=== PATIENT | female | born 1985 | race Caucasian/White ===

== ENCOUNTER 2018-01-05 16:47 | Observation (INO) | payer MEDICAID ==
[2018-01-05] MEDS ORDERED: Sodium Chloride 0.9% 1,000 ML IV SCH (17:45)
[2018-01-05] MEDS ORDERED: Metoclopramide 10 MG/2 ML SDV IVPUSH ONE (17:53)
[2018-01-05] MEDS ORDERED: HYDROmorphone 0.5 MG/0.5 ML Syringe IVPUSH ONE ×2 (17:53→21:12)
--- NOTE | 2018-01-05 17:53 | EDM.PDOC ---
ED HPI GENERAL MEDICAL PROBLEM - General Chief Complaint: Diabetic Complaint Stated Complaint: DIABETIC PROBLEMS Time Seen by Provider: 01/05/18 17:25 Source of Information: Reports: Patient History Limitations: Reports: No Limitations - History of Present Illness INITIAL COMMENTS - FREE TEXT/NARRATIVE: 32-year-old female who has been insulin-dependent diabetic 10 years presents to the ED with acute onset of high fever chills riders productive cough generalized myalgia and loss of appetite. Symptoms started yesterday about noon. She has a daughter home with similar symptoms. She did have a flu shot this year as did other members of her family. Clinically she has influenza. Blood sugars have been over 500 since yesterday and she's been unable to regain control by use of intermittent regular insulin shots. Typically she is on 20 units of Lantus daily and takes 8-9 units of regular insulin with each meal. He did report that she took 20 units of Lantus at 1500 hrs today before coming into the ED. She has had nausea and vomiting. Last emesis was last night. Onset: Sudden Onset Date: 01/04/18 Duration: Hour(s):, Getting Worse Location: Reports: Chest (Paroxysmal minimally productive cough), Generalized ( Analyzed myalgia with headache), Other Quality: Reports: Ache, Other (Generalized myalgia with headache nausea) Severity: Severe Improves with: Reports: None (Relates headache 8 or 9 out of 10) Worsens with: Reports: None, Other (Coughing), Movement Context: Denies: Activity, Exercise, Lifting, Sick Contact, Trauma, Other Associated Symptoms: Reports: Cough, Diaphoresis, Fever/Chills, Headaches, Loss of Appetite, Malaise, Nausea/Vomiting, Weakness. 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 History: Reports: Endometriosis, Other OB/BYN History: x5 Musculoskeletal History: Reports: Arthritis, Back Pain, Chronic Neurological History: Reports: Migraines, Seizure Psychiatric History: Reports: Addiction Endocrine/Metabolic History: Reports: Diabetes, Type I Hematologic History: Reports: Blood Transfusion(s) Dermatologic History: Reports: Eczema, Psoriasis - Infectious Disease History Infectious Disease History: Reports: MRSA - Past Surgical History GI Surgical History: Reports: Cholecystectomy, Other (See Below) Other GI Surgeries/Procedures: bowel resection Social & Family History - Family History Family Medical History: Noncontributory - Tobacco Use Smoking Status *Q: Current Every Day Smoker Years of Tobacco use: 20 Packs/Tins Daily: 1 - Caffeine Use Caffeine Use: Reports: Coffee, Energy Drinks, Soda, Tea - Recreational Drug Use Recreational Drug Use: Yes Recreational Drug Type: Reports: Marijuana/Hashish - Living Situation & Occupation Living situation: Reports: Single Occupation: Disabled ED ROS GENERAL - Review of Systems Review Of Systems: See Below Constitutional: Reports: Fever, Chills, Malaise, Weakness, Fatigue, Decreased Appetite, Weight Loss HEENT: Reports: Throat Pain. Denies: Ear Pain, Glasses, Vertigo Respiratory: Reports: Wheezing, Cough. Denies: Shortness of Breath, Pleuritic Chest Pain, Sputum, Hemoptysis (Mostly nonproductive) Cardiovascular: Reports: Chest Pain (From coughing so much.), Dyspnea on Exertion, Lightheadedness. Denies: Blood Pressure Problem, Claudication, Edema , Orthopnea, Palpitations Endocrine: Reports: Fatigue GI/Abdominal: Reports: Abdominal Pain, Diarrhea, Decreased Appetite (Mildly loose watery stool.), Nausea, Vomiting (Yesterday but not today.). Denies: Difficulty Swallowing, Distension : Reports: No Symptoms Musculoskeletal: Reports: Muscle Pain (Generalized myalgia.) Skin: Reports: Pallor, Diaphoresis Neurological: Reports: Dizziness, Headache, Difficulty Walking, Weakness. Denies: Confusion, Numbness, Paresthesia, Pre-Existing Deficit, Seizure, Syncope , Tingling, Tremors, Trouble Speaking (Due to weakness), Change in Speech Psychiatric: Reports: No Symptoms Hematologic/Lymphatic: Reports: No Symptoms Immunologic: Reports: No Symptoms ED EXAM GENERAL NO PERIP PULSE - Physical Exam Exam: See Below Exam Limited By: No Limitations General Appearance: Alert, WD/WN, Anxious, Mild Distress, Other (Does feel warm to palpation.) Eye Exam: Bilateral Eye: Normal Inspection (No jaundice.), PERRL (But has pain on lateral gaze bilaterally. This suggests inflammation of lateral rectus muscle ) Ears: Normal TMs Throat/Mouth: Other (Dry lips and mouth. Tongue is coated.) Head: Atraumatic, Normocephalic Neck: Normal Inspection, Supple, Non-Tender, Full Range of Motion. No: Carotid Bruit, Lymphadenopathy (L), Lymphadenopathy (R) Respiratory/Chest: Wheezing (Expiratory wheezes throughout all lung [place].), Other. No: Rales, Rhonchi Cardiovascular: Normal Peripheral Pulses (Dry hacking cough.), Regular Rate, Rhythm, No Edema, No Murmur GI/Abdominal: Normal Bowel Sounds, Soft, Non-Tender, No Organomegaly, No Mass, Pelvis Stable, Rebound Back Exam: Normal Inspection, Full Range of Motion. No: CVA Tenderness (L), CVA Tenderness (R) Extremities: Normal Inspection, Normal Range of Motion, Non-Tender, No Pedal Edema Neurological: Alert, Oriented, CN II-XII Intact, Normal Cognition Psychiatric: Normal Affect, Normal Mood Skin Exam: Warm, Dry, Intact, Normal Color, No Rash EKG INTERPRETATION EKG Date: 01/05/18 Time: 18:35 Rhythm: Other (Sinus tachycardia at 10 5/m) Rate (Beats/Min): 105 [place]: Normal P-Wave: Enlarged (Right atrial enlargement) QT: Prolonged (Mildly prolonged) EKG Interpretation Comments: Abnormal ECG Course - Vital Signs Last Recorded V/S: Last Vital Signs Temp 37.0 C 01/05/18 17:16 Pulse 119 H 01/05/18 17:16 Resp 18 01/05/18 17:16 BP 115/79 01/05/18 17:16 Pulse Ox 100 01/05/18 17:16 - Orders/Labs/Meds Orders: Active Orders 24 hr Category Date Time Status Blood Glucose Check, Bedside [] ONETIME Care 01/05/18 17:43 Active Blood Glucose Check, Bedside [RC] ONETIME Care 01/05/18 19:00 Active EKG Documentation Completion [RC] STAT Care 01/05/18 17:41 Active Chest 1V Frontal [CR] Stat Exams 01/05/18 17:41 Taken URINALYSIS W/MICROSCOPIC [UA W/MICROSCOPIC] [URIN] Stat Lab 01/05/18 17:43 Uncollected Dextrose 5%-0.9% NaCl [Dextrose 5%-Normal Saline] 1,000 Med 01/05/18 20:15 Active ml IV ASDIRECTED Magnesium Sulfate/Water [Magnesium Sulfate 2 GM in Med 01/05/18 19:08 Active Water 50 ML] 2 gm Premix Bag 1 bag IV ONETIME Potassium Chloride [KCl 10 MEQ in Water 100 ML] 10 meq Med 01/05/18 20:30 Active Premix Bag 1 bag IV ONETIME Sodium Chloride 0.9% [Normal Saline] 1,000 ml Med 01/05/18 17:45 Active IV ASDIRECTED Medication Orders Sodium Chloride (Normal Saline) 1,000 mls @ 999 mls/hr IV ASDIRECTED TONIO Last Admin: 01/05/18 18:05 Dose: 999 mls/hr Magnesium Sulfate 2 gm/ Premix 50 mls @ 25 mls/hr IV ONETIME ONE Stop: 01/05/18 21:07 Last Admin: 01/05/18 20:11 Dose: 25 mls/hr Dextrose/Sodium Chloride (Dextrose 5%-Normal Saline) 1,000 mls @ 250 mls/hr IV ASDIRECTED TONIO Potassium Chloride 10 meq/ (Premix) 100 mls @ 100 mls/hr IV ONETIME ONE Stop: 01/05/18 21:29 Labs: Laboratory Tests 01/05/18 01/05/18 01/05/18 Range/Units 17:55 17:55 17:55 WBC 10.26 H (3.98-10.04) K/mm3 RBC 4.76 (3.98-5.22) M/mm3 Hgb 14.4 (11.2-15.7) gm/L Hct 41.3 (34.1-44.9) % MCV 86.8 (79.4-94.8) fl MCH 30.3 (25.6-32.2) pg MCHC 34.9 (32.2-35.5) g/dl RDW Std Deviation 40.6 (36.4-46.3) fL Plt Count 216 (182-369) K/mm3 MPV 10.0 (9.4-12.3) fl Neutrophils % (Manual) 80 H (40-60) % Band Neutrophils % 4 (0-10) % Lymphocytes % (Manual) 8 L (20-40) % Atypical Lymphs % 0 % Monocytes % (Manual) 8 (2-10) % Eosinophils % (Manual) 0 L (0.7-5.8) % Basophils % (Manual) 0 L (0.1-1.2) Platelet Estimate Adequate RBC Morph Comment Normal Sodium 131 L (136-145) mEq/L Potassium 2.2 L* (3.5-5.1) mEq/L Chloride 94 L (98-107) mEq/L Carbon Dioxide 24 (21-32) mEq/L Anion Gap 15.2 H (5-15) BUN 8 (7-18) mg/dL Creatinine 1.2 H (0.55-1.02) mg/dL Est Cr Clr Drug Dosing 59.68 mL/min Estimated GFR (MDRD) 52 (>60) mL/min BUN/Creatinine Ratio 6.7 L (14-18) Glucose 409 H (74-106) mg/dL POC Glucose (70-105) mg/dL Serum Osmolality 302 H (280-300) mosm/kg Calcium 9.6 (8.5-10.1) mg/dL Phosphorus 1.8 L (2.6-4.7) mg/dL Magnesium 1.2 L (1.8-2.4) mg/dl Total Bilirubin 0.3 (0.2-1.0) mg/dL AST 23 (15-37) U/L ALT 34 (14-59) U/L Alkaline Phosphatase 110 (46-116) U/L C-Reactive Protein 1.4 H* (<1.0) mg/dL Total Protein 6.8 (6.4-8.2) g/dl Albumin 3.3 L (3.4-5.0) g/dl Globulin 3.5 gm/dL Albumin/Globulin Ratio 0.9 L (1-2) Ketones 0.14 (0.0-0.3) mM 01/05/18 Range/Units 19:46 WBC (3.98-10.04) K/mm3 RBC (3.98-5.22) M/mm3 Hgb (11.2-15.7) gm/L Hct (34.1-44.9) % MCV (79.4-94.8) fl MCH (25.6-32.2) pg MCHC (32.2-35.5) g/dl RDW Std Deviation (36.4-46.3) fL Plt Count (182-369) K/mm3 MPV (9.4-12.3) fl Neutrophils % (Manual) (40-60) % Band Neutrophils % (0-10) % Lymphocytes % (Manual) (20-40) % Atypical Lymphs % % Monocytes % (Manual) (2-10) % Eosinophils % (Manual) (0.7-5.8) % Basophils % (Manual) (0.1-1.2) Platelet Estimate RBC Morph Comment Sodium (136-145) mEq/L Potassium (3.5-5.1) mEq/L Chloride (98-107) mEq/L Carbon Dioxide (21-32) mEq/L Anion Gap (5-15) BUN (7-18) mg/dL Creatinine (0.55-1.02) mg/dL Est Cr Clr Drug Dosing mL/min Estimated GFR (MDRD) (>60) mL/min BUN/Creatinine Ratio (14-18) Glucose (74-106) mg/dL POC Glucose 225 H (70-105) mg/dL Serum Osmolality (280-300) mosm/kg Calcium (8.5-10.1) mg/dL Phosphorus (2.6-4.7) mg/dL Magnesium (1.8-2.4) mg/dl Total Bilirubin (0.2-1.0) mg/dL AST (15-37) U/L ALT (14-59) U/L Alkaline Phosphatase (46-116) U/L C-Reactive Protein (<1.0) mg/dL Total Protein (6.4-8.2) g/dl Albumin (3.4-5.0) g/dl Globulin gm/dL Albumin/Globulin Ratio (1-2) Ketones (0.0-0.3) mM Meds: Medications Generic Name Dose Route Start Last Admin Trade Name Freq PRN Reason Stop Dose Admin Sodium Chloride 1,000 mls @ 999 mls/hr 01/05/18 17:45 01/05/18 18:05 Normal Saline IV 999 mls/hr ASDIRECTED TONIO Administration Magnesium Sulfate 2 gm/ Premix 50 mls @ 25 mls/hr 01/05/18 19:08 01/05/18 20: 11 IV 01/05/18 21:07 25 mls/hr ONETIME ONE Administration Dextrose/Sodium Chloride 1,000 mls @ 250 mls/hr 01/05/18 20:15 Dextrose 5%-Normal Saline IV ASDIRECTED TONIO Potassium Chloride 10 meq/ 100 mls @ 100 mls/hr 01/05/18 20:30 Premix IV 01/05/18 21:29 ONETIME ONE Discontinued Medications Generic Name Dose Route Start Last Admin Trade Name Carlyle PRN Reason Stop Dose Admin Acetaminophen 650 mg 01/05/18 19:02 01/05/18 19:31 Tylenol PO 01/05/18 19:03 650 mg NOW ONE Administration Fentanyl 50 mcg 01/05/18 18:51 01/05/18 18:57 Sublimaze IVPUSH 01/05/18 18:52 50 mcg ONETIME ONE Administration Hydromorphone HCl 0.5 mg 01/05/18 17:53 01/05/18 18:08 Dilaudid IVPUSH 01/05/18 17:54 0.5 mg ONETIME ONE Administration Insulin Human Regular 100 unit 100 mls @ 5 mls/hr 01/05/18 17:45 01/05/18 20: 09 / Sodium Chloride IV 2 unit/hr ASDIRECTED TONIO 2 mls/hr 5 UNIT/HR Infusion Potassium Chloride 10 meq/ 100 mls @ 100 mls/hr 01/05/18 18:50 01/05/18 19:46 Premix IV 01/05/18 19:49 100 mls/hr ASDIRECTED STA Administration Metoclopramide HCl 7.5 mg 01/05/18 17:53 01/05/18 18:07 Reglan IVPUSH 01/05/18 17:54 7.5 mg ONETIME ONE Administration Oseltamivir Phosphate 75 mg 01/05/18 19:33 01/05/18 19:50 Tamiflu PO 01/05/18 19:34 75 mg ONETIME ONE Administration - Radiology Interpretation Free Text/Narrative:: 32-year-old female who is been insulin-dependent diabetic since age [age] years. Presents to the ED with acute onset of high fever diaphoresis headache paroxysmal minimally productive cough and generalized myalgia with loss of appetite. This just came on yesterday morning. She did have a flu shot. One of her children had similar type illness within the last few days. States she's unable to eat. Blood sugars have been running over 500 for the last day and a half. Because of inability to control her sugars elected to come to the ED. She did vomit last night but nothing today. She is having some mild loose stools. Blood sugar checked at home was greater than 550. She did take Lantus 20 units which she takes once daily at 3:00 before coming to the ED today. Plan I don't smell a lot of ketones on her breath but she is at risk of ketosis. Labs to be done. One view chest x-ray ECG and influenza screen to be done. We will start her on normal saline IV at open. Will give Reglan 7.5 mg IV for nausea relief and Dilaudid 0.5 mg IV for headache and body ache. Tylenol 650 mg per ora for fever relief. We'll start her on insulin drip at 5 units an hour. - Re-Assessments/Exams Free Text/Narrative Re-Assessment/Exam: 01/05/18 18:54 White count is 10.26 with 80% neutrophils and 4% band cells. Hemoglobin is 14.4 with hematocrit of 41.3. Platelet count is 216,000. Chemistry shows a sodium of 131 a potassium very low at 2.2. Chloride 94 bicarbonate 24. And a gap is 15.2 with a BUN of 8. Creatinine is 1.2. EGFR is 52. Glucose is 409.. Calcium is 9.6. Serum phosphorus is low at 1.8. Magnesium is low at 1.2. Total bilirubin is 0.3 AST is 23 ALT is 34. Phosphatase is 110. C -reactive protein is 1.4. Total protein is 6.8 with albumin fraction of 3.3. Serum ketones are normal at 0.14. Serum osmolality is pending. Plan: 10 mg potassium will be hung by minibag and this will have to be repeated back to back at least on 4 occasions to replenish her potassium. She will also need magnesium supplementation on I will order 2 g IV which may have to be run through a separate IV. At present she is having increased headache and I will give her fentanyl 50 g IV for headache relief. Influenza screen is not yet back. 01/05/18 20:15 blood sugar is reported to be 250. I will therefore reduce her insulin drip to 2 units an hour. IV will be changed to D5 normal saline at 250 mils per hour. She will require another minibag of 10 mg of potassium IV over an hour. Departure - Departure Time of Disposition: 20:59 Disposition: Admitted As Inpatient 65 Condition: Fair Clinical Impression: Hyperglycemia due to type 1 diabetes mellitus, Acute febrile illness, Hypokalemia, Hypomagnesemia, Hyponatremia Nausea and vomiting Qualifiers: Vomiting type: bilious vomiting Qualified Code(s): R11.14 - Bilious vomiting - Discharge Information Referrals: PCP,None [Primary Care Provider] - Forms: ED Department Discharge - My Orders Last 24 Hours: My Active Orders 01/05/18 17:41 EKG Documentation Completion [RC] STAT Chest 1V Frontal [CR] Stat 01/05/18 17:43 Blood Glucose Check, Bedside [RC] ONETIME URINALYSIS W/MICROSCOPIC [UA W/MICROSCOPIC] [URIN] Stat 01/05/18 17:45 Sodium Chloride 0.9% [Normal Saline] 1,000 ml IV ASDIRECTED 01/05/18 19:00 Blood Glucose Check, Bedside [RC] ONETIME 01/05/18 19:08 Magnesium Sulfate/Water [Magnesium Sulfate 2 GM in Water 50 ML] 2 gm Premix Bag 1 bag IV ONETIME 01/05/18 20:15 Dextrose 5%-0.9% NaCl [Dextrose 5%-Normal Saline] 1,000 ml IV ASDIRECTED 01/05/18 20:30 Potassium Chloride [KCl 10 MEQ in Water 100 ML] 10 meq Premix Bag 1 bag IV ONETIME - Assessment/Plan Last 24 Hours: My Active Orders 01/05/18 17:41 EKG Documentation Completion [RC] STAT Chest 1V Frontal [CR] Stat 01/05/18 17:43 Blood Glucose Check, Bedside [RC] ONETIME URINALYSIS W/MICROSCOPIC [UA W/MICROSCOPIC] [URIN] Stat 01/05/18 17:45 Sodium Chloride 0.9% [Normal Saline] 1,000 ml IV ASDIRECTED 01/05/18 19:00 Blood Glucose Check, Bedside [RC] ONETIME 01/05/18 19:08 Magnesium Sulfate/Water [Magnesium Sulfate 2 GM in Water 50 ML] 2 gm Premix Bag 1 bag IV ONETIME 01/05/18 20:15 Dextrose 5%-0.9% NaCl [Dextrose 5%-Normal Saline] 1,000 ml IV ASDIRECTED 01/05/18 20:30 Potassium Chloride [KCl 10 MEQ in Water 100 ML] 10 meq Premix Bag 1 bag IV ONETIME
[2018-01-05] MEDS ORDERED: Potassium Chloride 10 MEQ in Premix Bag 1 BAG IV STA (18:50)
[2018-01-05] MEDS ORDERED: fentaNYL 100 MCG/2 ML SDV IVPUSH ONE (18:51)
[2018-01-05] MEDS ORDERED: Acetaminophen 325 MG Tab PO ONE (19:02)
[2018-01-05] MEDS ORDERED: Magnesium Sulfate/Water 2 GM in Premix Bag 1 BAG IV ONE (19:08)
[2018-01-05] MEDS ORDERED: Oseltamivir 75 MG Cap PO ONE (19:33)
[2018-01-05] MEDS ORDERED: Dextrose 5%-0.9% NaCl 1,000 ML IV SCH ×3 (20:15→23:30)
[2018-01-05] MEDS ORDERED: Potassium Chloride 10 MEQ in Premix Bag 1 BAG IV ONE (20:30)
[2018-01-05] MEDS ORDERED: diphenhydrAMINE 50 MG/ML SDV IVPUSH ONE (21:11)
[2018-01-05] MEDS ORDERED: Ondansetron 4 MG/2 ML SDV IVPUSH ONE (21:11)
[2018-01-05] MEDS ORDERED: Ondansetron 4 MG/2 ML SDV IV PRN (22:14)
[2018-01-05] MEDS ORDERED: Ondansetron 4 MG Tab.DIS PO PRN (22:14)
[2018-01-05] MEDS ORDERED: HYDROmorphone 0.5 MG/0.5 ML Syringe IVPUSH PRN (22:19)
[2018-01-05] MEDS ORDERED: Ketorolac 30 MG/ML SDV IV PRN (22:20)
[2018-01-05] MEDS ORDERED: hydrALAZINE 20 MG/ML SDV IVPUSH PRN (22:22)
[2018-01-05] MEDS ORDERED: Metoprolol Tartrate 5 MG/5 ML SDV IVPUSH PRN (22:22)
[2018-01-05] MEDS ORDERED: 50% Dextrose in Water 50 ML Syringe IVPUSH PRN (22:30)
--- NOTE | 2018-01-05 22:37 | PCM.HP ---
H&P History of Present Illness - General Date of Service: 01/05/18 Admit Problem/Dx: Hyperglycemia, hypokalemia, hypomagnesemia, febrile illness Source of Information: Patient, Provider, RN, RN Notes Reviewed History Limitations: Reports: No Limitations - History of Present Illness Initial Comments - Free Text/Narative: Melvi Red is a 32yo female who presents to our ED today with hyperglycemia. He has been a diabetic for the past 10 years and reports today she began having high fever, chills, rigors, productive cough, generalized myalgia, loss of appetite, and sugars in the 500s. She reports symptoms began yesterday at noon and she has a daughter at home with similar symptoms. She reports she did receive a flu shot this year. She usually takes 20 units Lantus daily in 8-9 units of regular insulin with each meal. She reports today she did take her 20 units of Lantus around 1500 hrs. just prior to coming into the ED. She reports nausea and vomiting with her last episode of emesis being last night. Temperature the ED was 37C. Pulse 119. Respirations 18. Blood pressure 115/ 79. Pulse ox 100%. EKG is obtained showing sinus tachycardia 105 bpm. There is right atrial enlargement and mildly prolonged QT interval. Labs were obtained: The CBC is slightly elevated at 10.26. Hemoglobin good at 14.4. Hematocrit 41.3. She was normocytic. Platelets are good at 216,000. Neutrophils are elevated at 80%. There is 4% band neutrophils noted. Sodium is low at 131. Potassium very low at 2.2. Chloride 94. Carbon dioxide 24. Anion gap 15.2. BUN 8. Creatinine 1.2. EGFR is 52. Glucose is 409. Serum osmolality is 302. Calcium is 9.6. Phosphorus 1.8. Magnesium low at 1.2 total bilirubin 0.3. Liver enzymes looked good with AST at 23, ALT of 34, alkaline phosphatase at 110. CRP is elevated 1.4. Albumin is low at 3.3. Ketones are good at 0.14. Influenza screen was negative although clinically she does appear to have influenza. 2 g of IV magnesium were given and potassium was supplemented. She was given 50 g of fentanyl for headache. She was started on insulin drip. IV was started and changed to D5NS. She was given acetaminophen and Dilaudid. Reglan was given for nausea. Because she received both Zofran and Reglan 25 mg Benadryl were given to avoid a dystonic reaction. 75 mg Tamiflu was also given. UA was obtained and was negative however did show 2+ glucose, 5-10 epithelial cells, and few urine yeast. She does report a history of endometriosis, arthritis, chronic back pain, migraines, seizures, prior addiction, type 1 diabetes, eczema, psoriasis, prior MRSA infection, cholecystectomy, and prior small bowel resection. She is a current every day smoker. She also reportedly utilizes marijuana. She is subsequently admitted to the ICU. She is a full code. She recently moved to the area and does not have a primary care provider. She will need to establish. 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 History: Reports: Endometriosis, Other OB/BYN History: x5 Musculoskeletal History: Reports: Arthritis, Back Pain, Chronic Neurological History: Reports: Migraines, Seizure Psychiatric History: Reports: Addiction Endocrine/Metabolic History: Reports: Diabetes, Type I Hematologic History: Reports: Blood Transfusion(s) Dermatologic History: Reports: Eczema, Psoriasis - Infectious Disease History Infectious Disease History: Reports: MRSA - Past Surgical History GI Surgical History: Reports: Cholecystectomy, Other (See Below) Other GI Surgeries/Procedures: bowel resection Social & Family History - Family History Family Medical History: Noncontributory - Tobacco Use Smoking Status *Q: Current Every Day Smoker Years of Tobacco use: 20 Packs/Tins Daily: 1 - Caffeine Use Caffeine Use: Reports: Coffee, Energy Drinks, Soda, Tea - Recreational Drug Use Recreational Drug Use: Yes Recreational Drug Type: Reports: Marijuana/Hashish - Living Situation & Occupation Living situation: Reports: Single Occupation: Disabled H&P Review of Systems - Review of Systems: Review Of Systems: See Below General: Reports: Fever, Chills, Malaise, Weakness, Fatigue, Decreased Appetite HEENT: Reports: No Symptoms, Eye Pain, Headaches, Sore Throat, Visual Changes. Denies: Ear Pain, Vertigo Pulmonary: Reports: Wheezing, Pleuritic Chest Pain (from coughing ), Cough. Denies: Shortness of Breath, Sputum Cardiovascular: Reports: No Symptoms, Chest Pain (from coughing ), Dyspnea on Exertion, Lightheadedness. Denies: Edema, Syncope, Claudication Gastrointestinal: Reports: Abdominal Pain, Diarrhea (baseline), Decreased Appetite, Nausea, Vomiting (yesterday). Denies: Constipation, Difficulty Swallowing, Distension, Hematemesis, Hematochezia, Melena 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: Reports: No Symptoms. Denies: Dysuria, Frequency, Burning, Pain , Urgency Musculoskeletal: Reports: No Symptoms, Back Pain (chronic), Muscle Pain ( generalized) Skin: Reports: No Symptoms, Pallor, Diaphoresis Psychiatric: Reports: No Symptoms Neurological: Reports: No Symptoms, Dizziness, Headache, Difficulty Walking, Weakness. Denies: Numbness, Pre-Existing Deficit, Seizure, Syncope, Tingling, Tremors, Trouble Speaking, Change in Speech Hematologic/Lymphatic: Reports: No Symptoms Immunologic: Reports: No Symptoms Exam - Exam Exam: See Below - Vital Signs Vital Signs: Last Vital Signs Temp 98.6 F 01/05/18 17:16 Pulse 119 H 01/05/18 17:16 Resp 18 01/05/18 17:16 BP 115/79 01/05/18 17:16 Pulse Ox 100 01/05/18 17:16 Weight: 125 lb - Exam General: Alert, Oriented, Cooperative, Mild Distress HEENT: Conjunctiva Clear, EACs Clear, EOMI, Hearing Intact, Nares Patent, Normal Nasal Septum, Posterior Pharynx Clear, TMs Clear, PERRLA. No: Mucosa Moist & [place] (dry mouth, lips, tongue) Neck: Supple, Trachea Midline. No: JVD Lungs: Normal Respiratory Effort, Wheezing. No: Crackles, Rales, Rhonchi, Rub, Stridor Cardiovascular: Regular Rate, Regular Rhythm GI/Abdominal Exam: Normal Bowel Sounds, Soft, Non-Tender, No Organomegaly, No Distention, No Abnormal Bruit, No Mass, Pelvis Stable (Female) Exam: Deferred Rectal (Female) Exam: Deferred Back Exam: Normal Inspection, Full Range of Motion Extremities: Normal Inspection, Normal Range of Motion, Non-Tender, No Pedal Edema, Normal Capillary Refill Peripheral Pulses: 2+: Radial (L), Radial (R), Posterior Tibial (L), Posterior Tibial (R), Dorsalis Pedis (L), Dorsalis Pedis (R) Skin: Warm, Dry, Intact Neurological: Cranial Nerves Intact (grossly ) Neuro Extensive - Mental Status: Alert, Oriented x3, Normal Mood/Affect, Normal Cognition, Memory Intact Psychiatric: Alert, Normal Affect, Normal Mood - Patient Data Result Diagrams: 01/05/18 17:55 01/05/18 17:55 *Q Meaningful Use (ADM) - VTE *Q VTE Criteria *Q: - Stroke *Q Stroke Criteria *Q: - AMI *Q AMI Criteria *Q: - Problem List (1) Acute febrile illness SNOMED Code(s): 682093949 ICD Code: R50.9 - FEVER, UNSPECIFIED Status: Acute Priority: High Current Visit: Yes (2) Hyperglycemia due to type 1 diabetes mellitus SNOMED Code(s): 774559109207333 ICD Code: E10.65 - TYPE 1 DIABETES MELLITUS WITH HYPERGLYCEMIA Status: Acute Priority: High Current Visit: Yes (3) Hypokalemia SNOMED Code(s): 80087893 ICD Code: E87.6 - HYPOKALEMIA Status: Acute Priority: High Current Visit: Yes (4) Hypomagnesemia SNOMED Code(s): 274630053 ICD Code: E83.42 - HYPOMAGNESEMIA Status: Acute Priority: High Current Visit: Yes (5) Hyponatremia SNOMED Code(s): 67844678 ICD Code: E87.1 - HYPO-OSMOLALITY AND HYPONATREMIA Status: Acute Priority : High Current Visit: Yes (6) Nausea and vomiting SNOMED Code(s): 73624049 ICD Code: R11.2 - NAUSEA WITH VOMITING, UNSPECIFIED Status: Acute Priority: High Current Visit: Yes Qualifiers: Vomiting type: bilious vomiting Qualified Code(s): R11.14 - Bilious vomiting (7) Endometriosis SNOMED Code(s): 936466023 ICD Code: N80.9 - ENDOMETRIOSIS, UNSPECIFIED Status: Chronic Priority: Low Current Visit: No (8) Arthritis SNOMED Code(s): 3903986 ICD Code: M19.90 - UNSPECIFIED OSTEOARTHRITIS, UNSPECIFIED SITE Status: Chronic Priority: Low Current Visit: No (9) Chronic back pain SNOMED Code(s): 193585033 ICD Code: M54.9 - DORSALGIA, UNSPECIFIED; G89.29 - OTHER CHRONIC PAIN Status: Chronic Priority: Low Current Visit: No Qualifiers: Back pain location: back pain in unspecified location Back pain laterality : unspecified Qualified Code(s): M54.9 - Dorsalgia, unspecified; G89.29 - Other chronic pain; G89.29 - Other chronic pain (10) Migraines SNOMED Code(s): 78447055 ICD Code: G43.909 - MIGRAINE, UNSP, NOT INTRACTABLE, WITHOUT STATUS MIGRAINOSUS Status: Chronic Priority: Low Current Visit: No Qualifiers: Migraine type: unspecified Status migrainosus presence: without status migrainosus Intractability: intractable Qualified Code(s): G43.919 - Migraine, unspecified, intractable, without status migrainosus (11) Seizures SNOMED Code(s): 46663455 ICD Code: R56.9 - UNSPECIFIED CONVULSIONS Status: Chronic Priority: Low Current Visit: No (12) Type I diabetes mellitus SNOMED Code(s): 00701741 ICD Code: E10.9 - TYPE 1 DIABETES MELLITUS WITHOUT COMPLICATIONS Status: Chronic Priority: High Current Visit: Yes Qualifiers: Diabetes mellitus complication status: with neurologic complications Diabetes mellitus complication detail: with unspecified neuropathy Qualified Code(s): E10.40 - Type 1 diabetes mellitus with diabetic neuropathy, unspecified (13) Eczema SNOMED Code(s): 05119621 ICD Code: L30.9 - DERMATITIS, UNSPECIFIED Status: Chronic Priority: Low Current Visit: No Qualifiers: Eczema type: unspecified Qualified Code(s): L30.9 - Dermatitis, unspecified (14) Psoriasis SNOMED Code(s): 7630136 ICD Code: L40.9 - PSORIASIS, UNSPECIFIED Status: Acute Priority: Low Current Visit: No (15) Tobacco use disorder SNOMED Code(s): 732632998 ICD Code: F17.200 - NICOTINE DEPENDENCE, UNSPECIFIED, UNCOMPLICATED Status : Chronic Priority: Low Current Visit: Yes (16) Marijuana use SNOMED Code(s): 785839033 ICD Code: F12.90 - CANNABIS USE, UNSPECIFIED, UNCOMPLICATED Status: Chronic Priority: Low Current Visit: No Problem List Initiated/Reviewed/Updated: Yes Orders Last 24hrs: Active Orders 24 hr Category Date Time Status Ambulate [RC] PER UNIT ROUTINE Care 01/05/18 22:15 Active Antiembolic Devices [RC] PER UNIT ROUTINE Care 01/05/18 22:16 Active Blood Glucose Check, Bedside [RC] Q1HR Care 01/05/18 22:29 Ordered Cardiac Monitoring [RC] CONTINUOUS Care 01/05/18 22:15 Active Height and Weight [RC] DAILY Care 01/05/18 22:14 Active Intake and Output [RC] QSHIFT Care 01/05/18 22:15 Active Oxygen Therapy [RC] PRN Care 01/05/18 22:14 Active Pulse Oximetry [RC] PRN Care 01/05/18 22:15 Active Up With Assistance [RC] ASDIRECTED Care 01/05/18 22:14 Active Up ad Brittany [RC] ASDIRECTED Care 01/05/18 22:14 Active VTE/DVT Education [RC] PER UNIT ROUTINE Care 01/05/18 22:14 Active Vital Signs [RC] Q4H Care 01/05/18 22:14 Active Consult to Case Management [CONS] Routine Cons 01/05/18 22:14 Active Consult to Diabetic Nurse Specialist [CONS] Routine Cons 01/05/18 22:14 Active Consult to Cartoon Artist [CONS] Routine Cons 01/05/18 22:14 Active Consult to Physical Therapy [PT Evaluation and Cons 01/05/18 22:36 Ordered Treatment] [CONS] Routine BASIC METABOLIC PANEL,BMP [CHEM] AM Lab 01/06/18 05:11 Ordered BASIC METABOLIC PANEL,BMP [CHEM] AM Lab 01/07/18 05:11 Ordered BASIC METABOLIC PANEL,BMP [CHEM] AM Lab 01/08/18 05:11 Ordered BASIC METABOLIC PANEL,BMP [CHEM] AM Lab 01/09/18 05:11 Ordered BMP [BASIC METABOLIC PANEL,BMP] [CHEM] Routine Lab 01/05/18 23:00 Ordered CBC WITH AUTO DIFF [HEME] AM Lab 01/06/18 05:11 Ordered CBC WITH AUTO DIFF [HEME] AM Lab 01/07/18 05:11 Ordered CBC WITH AUTO DIFF [HEME] AM Lab 01/08/18 05:11 Ordered CBC WITH AUTO DIFF [HEME] AM Lab 01/09/18 05:11 Ordered CRP [C-REACTIVE PROTEIN] [CHEM] AM Lab 01/06/18 05:11 Ordered CRP [C-REACTIVE PROTEIN] [CHEM] AM Lab 01/07/18 05:11 Ordered CRP [C-REACTIVE PROTEIN] [CHEM] AM Lab 01/08/18 05:11 Ordered CRP [C-REACTIVE PROTEIN] [CHEM] AM Lab 01/09/18 05:11 Ordered INFLUENZA A,B, H1N1 BY PCR [MREF] Routine Lab 01/05/18 22:23 Uncollected MAGNESIUM [CHEM] AM Lab 01/06/18 05:11 Ordered MAGNESIUM [CHEM] AM Lab 01/07/18 05:11 Ordered MAGNESIUM [CHEM] AM Lab 01/08/18 05:11 Ordered MAGNESIUM [CHEM] AM Lab 01/09/18 05:11 Ordered Acetaminophen [Tylenol] Med 01/05/18 22:14 Ordered 650 mg PO Q4H PRN Dextrose 5%-0.9% NaCl [Dextrose 5%-Normal Saline] 1,000 Med 01/06/18 05:00 Ordered ml IV ASDIRECTED Dextrose 5%-0.9% NaCl [Dextrose 5%-Normal Saline] 1,000 Med 01/06/18 08:00 Ordered ml IV ASDIRECTED Dextrose 5%-Normal Saline @ 75 MLS/HR(1000ml) Med 01/06/18 02:00 Ordered Dextrose 5%-0.9% NaCl [Dextrose 5%-Normal Saline] 1,000 ml IV ASDIRECTED Dextrose 5%-Normal Saline @ 100 MLS/HR(1000ml) Med 01/05/18 22:45 Ordered Dextrose 5%-0.9% NaCl [Dextrose 5%-Normal Saline] 1,000 ml IV ASDIRECTED Dextrose 50% in Water Med 01/05/18 22:30 Ordered 50 ml IVPUSH ASDIRECTED PRN HYDROmorphone [Dilaudid] Med 01/05/18 22:19 Ordered 0.5 mg IVPUSH Q2H PRN Insulin Aspart [NovoLOG] Med 01/06/18 07:00 Ordered See Protocol SUBCUT QIDACANDBED Ketorolac [Toradol] Med 01/05/18 22:20 Ordered 30 mg IV Q6H PRN Magnesium Rep Pharmacy to Dose [Pharmacy to Dose - Med 01/05/18 22:30 Ordered Magnesium Replacement] 1 dose .XX ASDIRECTED Metoprolol Tartrate [Lopressor] Med 01/05/18 22:22 Ordered 5 mg IVPUSH Q4H PRN Ondansetron [Zofran ODT] Med 01/05/18 22:14 Ordered 4 mg PO Q6H PRN Ondansetron [Zofran] Med 01/05/18 22:14 Ordered 4 mg IV Q4H PRN Potassium Chloride [KCl 10 MEQ in Water 100 ML] 10 meq Med 01/05/18 22:00 Active Premix Bag 1 bag IV Q1H Potassium Rep Pharmacy to Dose [Pharmacy to Dose - Med 01/06/18 08:00 Ordered Potassium Replacement] 1 dose .XX ASDIRECTED PRN hydrALAZINE [Apresoline] Med 01/05/18 22:22 Ordered 10 mg IVPUSH Q6H PRN Antiembolic Hose [OM.PC] Per Unit Routine Oth 01/05/18 22:15 Ordered Resuscitation Status Routine Resus Stat 01/05/18 22:14 Ordered Medication Orders Acetaminophen (Tylenol) 650 mg PO Q4H PRN PRN Reason: Pain (Mild 1-3)/fever Dextrose/Water (Dextrose 50% In Water) 50 ml IVPUSH ASDIRECTED PRN PRN Reason: Hypoglycemia Hydralazine HCl (Apresoline) 10 mg IVPUSH Q6H PRN PRN Reason: Hypertension Hydromorphone HCl (Dilaudid) 0.5 mg IVPUSH Q2H PRN PRN Reason: Pain (severe 7-10) Sodium Chloride (Normal Saline) 1,000 mls @ 999 mls/hr IV ASDIRECTED [facility] Last Admin: 01/05/18 18:05 Dose: 999 mls/hr Potassium Chloride 10 meq/ (Premix) 100 mls @ 100 mls/hr IV Q1H [facility] Stop: 01/06/18 00:59 Dextrose/Sodium Chloride (Dextrose 5%-Normal Saline) 1,000 mls @ 100 mls/hr IV ASDIRECTED [facility] Stop: 01/06/18 02:00 Dextrose/Sodium Chloride (Dextrose 5%-Normal Saline) 1,000 mls @ 75 mls/hr IV ASDIRECTED [facility] Stop: 01/06/18 05:00 Dextrose/Sodium Chloride (Dextrose 5%-Normal Saline) 1,000 mls @ 50 mls/hr IV ASDIRECTED [facility] Stop: 01/06/18 08:00 Dextrose/Sodium Chloride (Dextrose 5%-Normal Saline) 1,000 mls @ 25 mls/hr IV ASDIRECTED [facility] Insulin Aspart (Novolog) 0 unit SUBCUT QIDACANDBED TONIO PRN Reason: Protocol Ketorolac Tromethamine (Toradol) 30 mg IV Q6H PRN PRN Reason: Pain (moderate 4-6) Magnesium Sulfate (Pharmacy To Dose - Magnesium Replacement) [address] [facility] Metoprolol Tartrate (Lopressor) 5 mg IVPUSH Q4H PRN PRN Reason: Tachycardia Ondansetron HCl (Zofran Odt) 4 mg PO Q6H PRN PRN Reason: nausea, able to take PO Ondansetron HCl (Zofran) 4 mg IV Q4H PRN PRN Reason: Nausea/Vomiting Potassium Chloride (Pharmacy To Dose - Potassium Replacement) 1 dose .XX ASDIRECTED PRN PRN Reason: RX TO WATCH K LEVELS Assessment/Plan Comment:: I/P: Acute: Hyperglycemic hyperosmolar state -Type I DM for past 10 years -Blood sugars over 500 at home; 409 in ED -Osmolality 302 -Anion gap 15.2 -Ketones 0.14 -Insulin drip started in ED - stop -D5NS as ordered -Sliding scale insulin -Q1hr blood sugar checks -Resume home long acting insulin -in service educator consult -Will need to establish PCP locally Acute febrile illness -N&V, weakness, generalized myalgias, cough -poor oral intake -WBC 10.26 -CRP 1.4 -Tamiflu given in ED -Negative influenza, strep, CXR -Clinically appears to have influenza -Influenza by PCR ordered -Supportive care -Fluids as ordered Hyponatremia -Sodium 131 -Asymptomatic -Likely 2/2 above -IV fluids as ordered -Monitor Hypokalemia -Potassium 2.2 -2/2 above -Supplement Hypomagnesemia -Magnesium 1.2 -2/2 above -Supplemented in ED Renal injury -BUN 8, Creatinine 1.2, eGFR 52 -Hx/o Acute renal failure - unsure of baseline -likely 2/2 above and poor oral intake -IV fluids as ordered -Monitor Chronic: Tobacco use - nicotine patch marijuana use endometriosis arthritis chronic back pain migraines seizures addiction Type I DM - as above Eczema Psoriasis Hx/o small bowel resection Hx/o MRSA infection Plan: Admit to ICU CM for discharge planning Will need to establish care locally Other orders as indicated above Routine AM labs Home meds as ordered DVT/PE prophylaxis: [place] Code status: Full code; PCP: None locally
[2018-01-05] MEDS: Potassium Chloride 10 MEQ in Premix Bag 1 BAG IV SCH (22:54)
[2018-01-05] MEDS ORDERED: Albuterol/Ipratropium 3.0-0.5 MG/3 ML Neb Soln NEB PRN (23:11)
[2018-01-05] MEDS ORDERED: Potassium Chloride 20 MEQ Tab.ER PO ONE (23:32)
[2018-01-05] MEDS ORDERED: Temazepam 15 MG Cap PO PRN (23:37)
[2018-01-05] MEDS: Nicotine 21 MG/24 Hr Patch TRDERM SCH (23:50)
[2018-01-05] MEDS: oxyCODONE 5 MG Tab PO PRN (23:51)
[2018-01-06] MEDS ORDERED: Dextrose 5%-0.9% NaCl 1,000 ML IV SCH ×4 (02:00→08:00)
[2018-01-06] MEDS ORDERED: Insulin Regular, Human 100 Units/ML 3 ML Vial SUBCUT STA (02:19)
[2018-01-06] MEDS: oxyCODONE 5 MG Tab PO PRN ×3 (06:19→19:46)
--- NOTE | 2018-01-06 06:39 | CR ---
Chest: Portable view of the chest was obtained. Comparison: No prior chest x-ray. Heart size and mediastinum are normal. Lungs are clear. Bony structures are grossly intact. Impression: 1. Nothing acute is identified on portable chest x-ray. Diagnostic code #1
[2018-01-06] MEDS: Insulin Aspart 100 Units/ML 3 ML Pen SUBCUT SCH ×4 (07:45→21:47)
--- NOTE | 2018-01-06 07:58 | PCM.PN ---
- General Info Date of Service: 01/06/18 Admission Dx/Problem (Free Text): Hyperglycemia, hypokalemia, hypomagnesemia, febrile illness Subjective Update: Follow Up Functional Status: Reports: Pain Controlled, Tolerating Diet, Ambulating, Urinating. Denies: New Symptoms - Review of Systems General: Denies: Fever, Weakness, Fatigue, Malaise, Chills HEENT: Reports: Headaches (intermittent). Denies: Dysphasia, Ear Pain, Eye Pain , Post Nasal Drip, Sinus Congestion, Sore Throat, Rhinitis, Visual Changes Pulmonary: Denies: Shortness of Breath Cardiovascular: Denies: Chest Pain Gastrointestinal: Reports: Diarrhea (chronic), Nausea. Denies: Abdominal Pain, Vomiting 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: Reports: No Symptoms Musculoskeletal: Reports: No Symptoms Skin: Reports: No Symptoms Neurological: Denies: No Symptoms, Confusion, Difficulty Walking, Weakness, Gait Disturbance Psychiatric: Denies: Depression, Anxiety, Agitation, Cravings, Hallucinations, Suicidal Ideation, Homicidal Ideation Systems Review Comment:: No significant overnight or acute issues. She did not sleep well at night due to migraine headache. She still has migrain and actively seeking "dilaudid" to control her pain. She is now off insulin drip and her low potassium level has resolved. Her BS on average runs bet 200-300. - Patient Data Vitals - Most Recent: Last Vital Signs Temp 36.3 C 01/06/18 07:50 Pulse 89 01/06/18 07:50 Resp 20 01/06/18 07:50 BP 115/83 01/06/18 07:50 Pulse Ox 100 01/06/18 07:50 Weight - Most Recent: 56.699 kg I&O - Last 24 Hours: Intake & Output 01/05/18 01/06/18 01/06/18 22:59 06:59 14:59 Intake Total 2319 Output Total 1350 Balance 969 Lab Results Last 24 Hours: Laboratory Results - last 24 hr 01/05/18 01/05/18 01/06/18 Range/Units 22:45 23:23 00:10 WBC (3.98-10.04) K/mm3 RBC (3.98-5.22) M/mm3 Hgb (11.2-15.7) gm/L Hct (34.1-44.9) % MCV (79.4-94.8) fl MCH (25.6-32.2) pg MCHC (32.2-35.5) g/dl RDW Std Deviation (36.4-46.3) fL Plt Count (182-369) K/mm3 MPV (9.4-12.3) fl Neut % (Auto) (34.0-71.1) % Lymph % (Auto) (19.3-51.7) % [place] % (Auto) (4.7-12.5) % Eos % (Auto) (0.7-5.8) Baso % (Auto) (0.1-1.2) % Neut # (Auto) (1.56-6.13) K/mm3 Lymph # (Auto) (1.18-3.74) K/mm3 [place] # (Auto) (0.24-0.36) K/mm3 Eos # (Auto) (0.04-0.36) K/mm3 Baso # (Auto) (0.01-0.08) K/mm3 Sodium 137 (136-145) mEq/L Potassium 3.1 L (3.5-5.1) mEq/L Chloride 104 (98-107) mEq/L Carbon Dioxide 26 (21-32) mEq/L Anion Gap 10.1 (5-15) BUN 6 L (7-18) mg/dL Creatinine 0.9 (0.55-1.02) mg/dL Est Cr Clr Drug Dosing 79.58 mL/min Estimated GFR (MDRD) > 60 (>60) mL/min BUN/Creatinine Ratio 6.7 L (14-18) Glucose 326 H (74-106) mg/dL POC Glucose 318 H 314 H (70-105) mg/dL Calcium 7.7 L (8.5-10.1) mg/dL Magnesium (1.8-2.4) mg/dl C-Reactive Protein (<1.0) mg/dL 01/06/18 01/06/18 01/06/18 Range/Units 01:30 03:45 05:35 WBC (3.98-10.04) K/mm3 RBC (3.98-5.22) M/mm3 Hgb (11.2-15.7) gm/L Hct (34.1-44.9) % MCV (79.4-94.8) fl MCH (25.6-32.2) pg MCHC (32.2-35.5) g/dl RDW Std Deviation (36.4-46.3) fL Plt Count (182-369) K/mm3 MPV (9.4-12.3) fl Neut % (Auto) (34.0-71.1) % Lymph % (Auto) (19.3-51.7) % [place] % (Auto) (4.7-12.5) % Eos % (Auto) (0.7-5.8) Baso % (Auto) (0.1-1.2) % Neut # (Auto) (1.56-6.13) K/mm3 Lymph # (Auto) (1.18-3.74) K/mm3 [place] # (Auto) (0.24-0.36) K/mm3 Eos # (Auto) (0.04-0.36) K/mm3 Baso # (Auto) (0.01-0.08) K/mm3 Sodium (136-145) mEq/L Potassium (3.5-5.1) mEq/L Chloride (98-107) mEq/L Carbon Dioxide (21-32) mEq/L Anion Gap (5-15) BUN (7-18) mg/dL Creatinine (0.55-1.02) mg/dL Est Cr Clr Drug Dosing mL/min Estimated GFR (MDRD) (>60) mL/min BUN/Creatinine Ratio (14-18) Glucose 466 H 366 H (74-106) mg/dL POC Glucose 218 H (70-105) mg/dL Calcium (8.5-10.1) mg/dL Magnesium (1.8-2.4) mg/dl C-Reactive Protein (<1.0) mg/dL 01/06/18 01/06/18 01/06/18 Range/Units 05:57 05:57 06:33 WBC 12.39 H (3.98-10.04) K/mm3 RBC 4.13 (3.98-5.22) M/mm3 Hgb 12.5 (11.2-15.7) gm/L Hct 37.1 (34.1-44.9) % MCV 89.8 (79.4-94.8) fl MCH 30.3 (25.6-32.2) pg MCHC 33.7 (32.2-35.5) g/dl RDW Std Deviation 42.6 (36.4-46.3) fL Plt Count 196 (182-369) K/mm3 MPV 10.3 (9.4-12.3) fl Neut % (Auto) 74.4 H (34.0-71.1) % Lymph % (Auto) 18.4 L (19.3-51.7) % [place] % (Auto) 4.8 (4.7-12.5) % Eos % (Auto) 2.0 (0.7-5.8) Baso % (Auto) 0.2 (0.1-1.2) % Neut # (Auto) 9.21 H (1.56-6.13) K/mm3 Lymph # (Auto) 2.28 (1.18-3.74) K/mm3 [place] # (Auto) 0.60 H (0.24-0.36) K/mm3 Eos # (Auto) 0.25 (0.04-0.36) K/mm3 Baso # (Auto) 0.03 (0.01-0.08) K/mm3 Sodium (136-145) mEq/L Potassium (3.5-5.1) mEq/L Chloride (98-107) mEq/L Carbon Dioxide 26 (21-32) mEq/L Anion Gap (5-15) BUN 8 (7-18) mg/dL Creatinine 0.8 (0.55-1.02) mg/dL Est Cr Clr Drug Dosing 89.53 mL/min Estimated GFR (MDRD) > 60 (>60) mL/min BUN/Creatinine Ratio 10.0 L (14-18) Glucose 181 H (74-106) mg/dL POC Glucose 189 H (70-105) mg/dL Calcium 8.2 L (8.5-10.1) mg/dL Magnesium 2.1 (1.8-2.4) mg/dl C-Reactive Protein 7.0 H* (<1.0) mg/dL Charles Results Last 24 Hours: Microbiology 01/06/18 00:48 Influenza Type A Antigen Screen - Final Nasopharyngeal Swab - Nare, Unspecified NEGATIVE INFLUENZA A VIRUS AG Influenza Type B Antigen Screen - Final NEGATIVE INFLUENZA B VIRUS AG Med Orders - Current: Current Medications Acetaminophen (Tylenol) 650 mg PO Q4H PRN PRN Reason: Pain (Mild 1-3)/fever Albuterol/Ipratropium (Duoneb 3.0-0.5 Mg/3 Ml) 3 ml NEB Q6HRRT PRN PRN Reason: wheezing/SOB/cough Dextrose/Water (Dextrose 50% In Water) 50 ml IVPUSH ASDIRECTED PRN PRN Reason: Hypoglycemia Hydralazine HCl (Apresoline) 10 mg IVPUSH Q6H PRN PRN Reason: Hypertension Hydromorphone HCl (Dilaudid) 0.5 mg IVPUSH Q2H PRN PRN Reason: Pain (severe 7-10) Last Admin: 01/06/18 03:25 Dose: 0.5 mg Sodium Chloride (Normal Saline) 1,000 mls @ 999 mls/hr IV ASDIRECTED [facility] Last Admin: 01/05/18 18:05 Dose: 999 mls/hr Insulin Aspart (Novolog) 0 unit SUBCUT QIDACANDBED [facility] PRN Reason: Protocol Last Admin: 01/06/18 07:45 Dose: 3 units Insulin Detemir (Levemir) 0 unit SUBCUT BID [facility] Ketorolac Tromethamine (Toradol) 30 mg IV Q6H PRN PRN Reason: Pain (moderate 4-6) Magnesium Sulfate (Pharmacy To Dose - Magnesium Replacement) 1 dose .XX ASDIRECTED [facility] Metoprolol Tartrate (Lopressor) 5 mg IVPUSH Q4H PRN PRN Reason: Tachycardia Nicotine (Habitrol) 21 mg TRDERM DAILY [facility] Last Admin: 01/05/18 23:50 Dose: 21 mg Ondansetron HCl (Zofran Odt) 4 mg PO Q6H PRN PRN Reason: nausea, able to take PO Last Admin: 01/06/18 05:45 Dose: 4 mg Ondansetron HCl (Zofran) 4 mg IV Q4H PRN PRN Reason: Nausea/Vomiting Oxycodone HCl (Oxycodone) 5 mg PO Q6HR PRN PRN Reason: Pain Last Admin: 01/06/18 06:19 Dose: 5 mg Potassium Chloride (Pharmacy To Dose - Potassium Replacement) 1 dose .XX ASDIRECTED PRN PRN Reason: RX TO WATCH K LEVELS Temazepam (Restoril) 15 mg PO BEDTIME PRN PRN Reason: Insomnia Discontinued Medications Acetaminophen (Tylenol) 650 mg PO NOW ONE Stop: 01/05/18 19:03 Last Admin: 01/05/18 19:31 Dose: 650 mg Diphenhydramine HCl (Benadryl) 25 mg IVPUSH ONETIME ONE Stop: 01/05/18 21:12 Last Admin: 01/05/18 21:24 Dose: 25 mg Fentanyl (Sublimaze) 50 mcg IVPUSH ONETIME ONE Stop: 01/05/18 18:52 Last Admin: 01/05/18 18:57 Dose: 50 mcg Hydromorphone HCl (Dilaudid) 0.5 mg IVPUSH ONETIME ONE Stop: 01/05/18 17:54 Last Admin: 01/05/18 18:08 Dose: 0.5 mg Hydromorphone HCl (Dilaudid) 0.5 mg IVPUSH ONETIME ONE Stop: 01/05/18 21:13 Last Admin: 01/05/18 21:26 Dose: 0.5 mg Insulin Human Regular 100 unit (/ Sodium Chloride) 100 mls @ 5 mls/hr IV ASDIRECTED [facility] PRN Reason: 5 UNIT/HR Last Infusion: 01/05/18 20:09 Dose: 2 unit/hr, 2 mls/hr Potassium Chloride 10 meq/ (Premix) 100 mls @ 100 mls/hr IV ASDIRECTED [facility] Stop: 01/05/18 19:49 Last Admin: 01/05/18 19:46 Dose: 100 mls/hr Magnesium Sulfate 2 gm/ Premix 50 mls @ 25 mls/hr IV ONETIME ONE Stop: 01/05/18 21:07 Last Admin: 01/05/18 20:11 Dose: 25 mls/hr Dextrose/Sodium Chloride (Dextrose 5%-Normal Saline) 1,000 mls @ 250 mls/hr IV ASDIRECTED [facility] Last Admin: 01/05/18 21:01 Dose: 250 mls/hr Potassium Chloride 10 meq/ (Premix) 100 mls @ 100 mls/hr IV ONETIME ONE Stop: 01/05/18 21:29 Last Admin: 01/05/18 21:02 Dose: 100 mls/hr Potassium Chloride 10 meq/ (Premix) 100 mls @ 100 mls/hr IV Q1H [facility] Stop: 01/06/18 00:59 Last Admin: 01/05/18 22:54 Dose: 100 mls/hr Dextrose/Sodium Chloride (Dextrose 5%-Normal Saline) 1,000 mls @ 100 mls/hr IV ASDIRECTED [facility] Stop: 01/06/18 02:00 Dextrose/Sodium Chloride (Dextrose 5%-Normal Saline) 1,000 mls @ 75 mls/hr IV ASDIRECTED [facility] Stop: 01/06/18 05:00 Last Admin: 01/06/18 01:19 Dose: 75 mls/hr Dextrose/Sodium Chloride (Dextrose 5%-Normal Saline) 1,000 mls @ 50 mls/hr IV ASDIRECTED [facility] Stop: 01/06/18 08:00 Dextrose/Sodium Chloride (Dextrose 5%-Normal Saline) 1,000 mls @ 25 mls/hr IV ASDIRECTED [facility] Dextrose/Sodium Chloride (Dextrose 5%-Normal Saline) 1,000 mls @ 75 mls/hr IV ASDIRECTED [facility] Stop: 01/06/18 02:00 Dextrose/Sodium Chloride (Dextrose 5%-Normal Saline) 1,000 mls @ 50 mls/hr IV ASDIRECTED [facility] Stop: 01/06/18 08:00 Last Admin: 01/06/18 05:41 Dose: 50 mls/hr Insulin Human Regular (Humulin R) 0 unit SUBCUT BIDAC STA PRN Reason: Protocol Stop: 01/06/18 02:20 Last Admin: 01/06/18 02:34 Dose: 15 units Metoclopramide HCl (Reglan) 7.5 mg IVPUSH ONETIME ONE Stop: 01/05/18 17:54 Last Admin: 01/05/18 18:07 Dose: 7.5 mg Ondansetron HCl (Zofran) 4 mg IVPUSH ONETIME ONE Stop: 01/05/18 21:12 Last Admin: 01/05/18 21:21 Dose: 4 mg Oseltamivir Phosphate (Tamiflu) 75 mg PO ONETIME ONE Stop: 01/05/18 19:34 Last Admin: 01/05/18 19:50 Dose: 75 mg Potassium Chloride (Klor-Con M20) 60 meq PO ONETIME ONE Stop: 01/05/18 23:33 Last Admin: 01/05/18 23:51 Dose: 60 meq - Exam General: Alert, Oriented, Cooperative, No Acute Distress HEENT: Pupils Equal, Pupils Reactive, EOMI, Mucous Membr. Moist/Post Neck: Supple, Trachea Midline, No JVD, No Thyromegaly Lungs: Clear to Auscultation, Normal Respiratory Effort Cardiovascular: Regular Rate, Regular Rhythm GI/Abdominal Exam: Normal Bowel Sounds, Soft, Non-Tender, No Organomegaly, No Distention, No Abnormal Bruit (Female) Exam: Deferred Back Exam: Normal Inspection, Decreased Range of Motion Extremities: Normal Inspection, Normal Range of Motion, Non-Tender, No Pedal Edema, Normal Capillary Refill Peripheral Pulses: 2+: Dorsalis Pedis (L), Dorsalis Pedis (R) Skin: Warm, Dry, Intact Neurological: No New Focal Deficit Psy/Mental Status: Alert, Normal Affect, Normal Mood - Problem List Review Problem List Initiated/Reviewed/Updated: Yes - My Orders Last 24 Hours: My Active Orders 01/05/18 23:37 Temazepam [Restoril] 15 mg PO BEDTIME PRN 01/05/18 23:39 oxyCODONE 5 mg PO Q6HR PRN 01/05/18 Dinner ADA Diabetic [[employer] [place] [employer] Diet] [DIET] 01/06/18 09:00 Insulin Detemir [Levemir] 0 unit SUBCUT BID - Plan Plan:: I/P: Acute: DM1 -Poorly controlled outpatient -A1C is 12.40 -Resume insulin regimen with ISS -ADA diet -Recommend low dose ASA and Renal Protection -Lipid Panel in AM Migraine MARTÍNEZ -Intermittent -She wants "dialudid" -Offered fioricet PRN Drug Seeking Behavior -Carries a hx/o Substance Abuse -She has been asking for dilaudid -Offered Toradol and Oral narcotics for pain management Resolved: S/p Hyperglycemic hyperosmolar state -Type I DM for past 10 years -Blood sugars over 500 at home; 409 in ED -Osmolality 302 -Anion gap 15.2 -Ketones 0.14 -Insulin drip started in ED - stop -D5NS as ordered -Sliding scale insulin -Q1hr blood sugar checks -Resume home long acting insulin -manager simulation consult -Will need to establish PCP locally S/p Acute febrile illness -N&V, weakness, generalized myalgias, cough -poor oral intake -WBC 10.26 -CRP 1.4 -Tamiflu given in ED -Negative influenza, strep, CXR -Clinically appears to have influenza -Influenza by PCR ordered -Supportive care -Fluids as ordered S/p Hyponatremia -Sodium 131 -Asymptomatic -Likely 2/2 above -IV fluids as ordered -Monitor S/p Hypokalemia -Potassium 2.2 -2/2 above -Supplement S/p Hypomagnesemia -Magnesium 1.2 -2/2 above -Supplemented in ED S/p Renal injury -BUN 8, Creatinine 1.2, eGFR 52 -Hx/o Acute renal failure - unsure of baseline -likely 2/2 above and poor oral intake -IV fluids as ordered -Monitor Chronic: Tobacco use - nicotine patch marijuana use endometriosis arthritis chronic back pain migraines seizures addiction Type I DM - as above Eczema Psoriasis Hx/o small bowel resection Hx/o MRSA infection Plan: She is clinically stable Transfer to Med-Surg with Tele Routine AM labs PRN Scopolamine patch x1 Levemir 10 units SubQ at 2100 tonight Will need to establish care locally Other orders as indicated above DVT/PE prophylaxis: [place] Code status: Full code; PCP: None locally D/c in AM
[2018-01-06] MEDS: Nicotine 21 MG/24 Hr Patch TRDERM SCH (08:10)
[2018-01-06] MEDS: Acetaminophen 325 MG Tab PO PRN ×2 (08:13→16:35)
[2018-01-06] MEDS: Insulin Detemir 100 Units/ML 3 ML Pen SUBCUT SCH ×2 (08:14→20:34)
[2018-01-06] MEDS ORDERED: Acetaminophen/Butalbital/Caffeine 325-50-40 MG Tab PO PRN (08:22)
[2018-01-06] MEDS ORDERED: Scopolamine 1 MG Transdermal Patch TRDERM PRN (08:31)
[2018-01-06] MEDS: Potassium Chloride 10 MEQ in Premix Bag 1 BAG IV SCH ×2 (08:48→08:49)
[2018-01-06] MEDS ORDERED: LORazepam 2 MG/ML MDV IVPUSH ONE ×2 (14:27→20:18)
[2018-01-06] MEDS ORDERED: Ketorolac 30 MG/ML SDV IM ONE (14:27)
[2018-01-06] MEDS ORDERED: Insulin Detemir 100 Units/ML 3 ML Pen SUBCUT ONE (21:00)
[2018-01-07] MEDS: Acetaminophen 325 MG Tab PO PRN (03:32)
[2018-01-07] MEDS: oxyCODONE 5 MG Tab PO PRN ×2 (03:33→09:05)
[2018-01-07] MEDS ORDERED: Magnesium Oxide 400 MG Tab PO ONE (07:30)
--- NOTE | 2018-01-07 07:33 | PCM.DCSUM1 ---
Discharge Summary - Hospital Course Brief History: Melvi Red is a 32 yo female with past medical hx/o Renal Failure, Endometriosis, OA/DJD, Seizure Disorder, Migraine Disorder, DM1, Substance Abuse, Eczema, Psoriasis and Cocaine Induced-Ischemia S/p Bowel Resection who presents to ED with symptoms associated to hyperglycemia: subjective fever, chills, rigors, nausea, vomiting, productive cough, generalized myalgia, and loss of appetite. She was admitted for medical treatment of hyper-osmolar and hyperglycemic state. - Discharge Data Discharge Date: 01/07/18 Discharge Disposition: Home, Self-Care 01 Condition: Good - Discharge Diagnosis/Problem(s) (1) Hypomagnesemia SNOMED Code(s): 423781563 ICD Code: E83.42 - HYPOMAGNESEMIA Status: Acute Priority: High (2) Drug-seeking behavior SNOMED Code(s): 104639383 ICD Code: Z76.5 - MALINGERER [CONSCIOUS SIMULATION] Status: Acute (3) Dehydration, moderate SNOMED Code(s): 4715717802489 ICD Code: E86.0 - DEHYDRATION Status: Resolved (4) Acute febrile illness SNOMED Code(s): 356871787 ICD Code: R50.9 - FEVER, UNSPECIFIED Status: Resolved Priority: High (5) Hyperglycemia due to type 1 diabetes mellitus SNOMED Code(s): 464910950219568 ICD Code: E10.65 - TYPE 1 DIABETES MELLITUS WITH HYPERGLYCEMIA Status: Resolved Priority: High (6) Hypokalemia SNOMED Code(s): 42012790 ICD Code: E87.6 - HYPOKALEMIA Status: Resolved Priority: High (7) Hyponatremia SNOMED Code(s): 02377323 ICD Code: E87.1 - HYPO-OSMOLALITY AND HYPONATREMIA Status: Resolved Priority: High (8) Nausea and vomiting SNOMED Code(s): 69628511 ICD Code: R11.2 - NAUSEA WITH VOMITING, UNSPECIFIED Status: Resolved Priority: High Qualifiers: Vomiting type: bilious vomiting Qualified Code(s): R11.14 - Bilious vomiting (9) Type I diabetes mellitus SNOMED Code(s): 66574764 ICD Code: E10.9 - TYPE 1 DIABETES MELLITUS WITHOUT COMPLICATIONS Status: Chronic Priority: High Qualifiers: Diabetes mellitus complication status: with neurologic complications Diabetes mellitus complication detail: with unspecified neuropathy Qualified Code(s): E10.40 - Type 1 diabetes mellitus with diabetic neuropathy, unspecified (10) Migraines SNOMED Code(s): 79582225 ICD Code: G43.909 - MIGRAINE, UNSP, NOT INTRACTABLE, WITHOUT STATUS MIGRAINOSUS Status: Chronic Priority: Low Qualifiers: Migraine type: unspecified Status migrainosus presence: without status migrainosus Intractability: not intractable Qualified Code(s): G43.909 - Migraine, unspecified, not intractable, without status migrainosus - Patient Summary/Data Operative Procedure(s) Performed: None Complications: None Consults: Consultations 01/05/18 22:14 Consult to Case Management [CONS] Routine Consult to Diabetic Nurse Specialist [CONS] Routine Consult to Concert Promoter [CONS] Routine 01/05/18 22:36 Consult to Physical Therapy [PT Evaluation and Treatment] [CONS] Routine Labs Pending at D/C: None Recommended Follow-up Testing/Procedures: None Planned Operative Procedure(s) after DC: None Hospital Course: Patient was primarily admitted for medical treatment of hyperosmloar- hyperglycemic state. She carried a hx/o poorly controlled DM1 with an A1C of 12.40. Her basic infectious work up to include UA, CXR and influenza screening were all negative. Patient received initial treatment in ED for hyperglycemia before she was moved to the unit on insulin drip. Once her serum glucose improved, she was switched to her home insulin regimen for further management. Her hospital course was uncomplicated. She did exhibit drug seeking behavior but we were quick to discourage her given her hx/o substance abuse. Patient was stable upon discharge. She was provided ASA and Low dose Lisinopril for Cardio and renal protection respectively. She was advised to check her glucose 3x/day & 4x/week and show log to her PCP on follow up appointment. She was further advised to follow up with her PCP in 1-2 weeks. The patient expressed understanding and in agreement with the plans as discussed above. All questions were answered. - Patient Instructions Diet: Usual Diet as Tolerated, Diabetic Diet Activity: As Tolerated Driving: May Drive Today Showering/Bathing: May Shower Notify Provider of: Fever, Increased Pain, Nausea and/or Vomiting Other/Special Instructions: - Please take all new medications as directed. - Resume all home medications. - Please check your glucose at least 3x/day & 4/ week. Show log to your family doctor on follow up appointment. - Your provided materials and nicotine patch for smoking cessation. Discussed a specific with your PCP when you are ready to quit. - Call your family doctor for any questions or concerns after discharge. - Follow up with your doctor in 1 week - Discharge Plan Prescriptions/Med Rec: oxyCODONE 5 mg PO Q6HR PRN #12 tablet PRN Reason: Pain Aspirin [Halfprin] 81 mg PO DAILY #30 tab.ec Lisinopril [Prinivil] 5 mg PO DAILY #30 tablet Nicotine [Nicotine Patch] 1 each TD DAILY #30 patch.td24 Home Medications: Home Meds Insulin Aspart [Novolog Flexpen] 9 units SUBCNJ TIDMEALS 01/05/18 [History] Insulin Glarg,Human.Rec.Analog [Lantus Solostar] 20 unit SUBCUT QAM 01/05/18 [ History] Aspirin [Halfprin] 81 mg PO DAILY #30 tab.ec 01/07/18 [Rx] Lisinopril [Prinivil] 5 mg PO DAILY #30 tablet 01/07/18 [Rx] Nicotine [Nicotine Patch] 1 each TD DAILY #30 patch.td24 01/07/18 [Rx] oxyCODONE 5 mg PO Q6HR PRN #12 tablet 01/07/18 [Rx] Patient Handouts: Substance Use Disorder, Hyperglycemia, Steps to Quit Smoking Referrals: PCP,None [Primary Care Provider] - - Discharge Summary/Plan Comment DC Time >30 min.: Yes (45 mins) Discharge Summary/Plan Comment: Discharge to Home - General Info Date of Service: 01/07/18 Admission Dx/Problem (Free Text: Hyperglycemia, hypokalemia, hypomagnesemia, febrile illness Subjective Update: Follow Up Functional Status: Reports: Pain Controlled, Tolerating Diet, Ambulating, Urinating. Denies: New Symptoms - Review of Systems General: Denies: Fever, Weakness, Fatigue, Malaise, Chills HEENT: Reports: No Symptoms Pulmonary: Denies: Shortness of Breath, Cough Cardiovascular: Denies: Chest Pain Gastrointestinal: Reports: Flatus. Denies: Abdominal Pain, Constipation, Decreased Appetite, Diarrhea, Difficulty Swallowing, Melena, Nausea, Vomiting 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: Reports: No Symptoms Musculoskeletal: Reports: No Symptoms Skin: Denies: Cyanosis, Mottled, Pallor, Diaphoresis, Bruising, Rash Neurological: Denies: Confusion, Difficulty Walking, Weakness, Gait Disturbance Psychiatric: Denies: Depression, Anxiety, Agitation, Cravings, Hallucinations, Suicidal Ideation, Homicidal Ideation Systems Review Comment: No significant overnight or acute issues. She is doing good. She has no new complaints. - Patient Data Vitals - Most Recent: Last Vital Signs Temp 36.9 C 01/07/18 03:00 Pulse 82 01/07/18 03:00 Resp 16 01/07/18 03:00 BP 103/88 01/07/18 03:00 Pulse Ox 98 01/07/18 03:00 Weight - Most Recent: 57.062 kg I&O - Last 24 hours: Intake & Output 01/06/18 01/07/18 01/07/18 22:59 06:59 14:59 Intake Total 1240 800 Output Total 1450 Balance -210 800 Lab Results - Last 24 hrs: Laboratory Results - last 24 hr 01/06/18 01/06/18 01/06/18 Range/Units 05:57 05:57 11:48 WBC (3.98-10.04) K/mm3 RBC (3.98-5.22) M/mm3 Hgb (11.2-15.7) gm/L Hct (34.1-44.9) % MCV (79.4-94.8) fl MCH (25.6-32.2) pg MCHC (32.2-35.5) g/dl RDW Std Deviation (36.4-46.3) fL Plt Count (182-369) K/mm3 MPV (9.4-12.3) fl Neut % (Auto) (34.0-71.1) % Lymph % (Auto) (19.3-51.7) % [place] % (Auto) (4.7-12.5) % Eos % (Auto) (0.7-5.8) Baso % (Auto) (0.1-1.2) % Neut # (Auto) (1.56-6.13) K/mm3 Lymph # (Auto) (1.18-3.74) K/mm3 [place] # (Auto) (0.24-0.36) K/mm3 Eos # (Auto) (0.04-0.36) K/mm3 Baso # (Auto) (0.01-0.08) K/mm3 Sodium 142 (136-145) mEq/L Potassium 3.9 (3.5-5.1) mEq/L Chloride 109 H (98-107) mEq/L Carbon Dioxide 26 (21-32) mEq/L Anion Gap 10.9 (5-15) BUN 8 (7-18) mg/dL Creatinine 0.8 (0.55-1.02) mg/dL Est Cr Clr Drug Dosing 89.53 mL/min Estimated GFR (MDRD) > 60 (>60) mL/min BUN/Creatinine Ratio 10.0 L (14-18) Glucose 181 H (74-106) mg/dL POC Glucose 330 H (70-105) mg/dL Hemoglobin A1c 12.40 H (4.50-6.20) % Calcium 8.2 L (8.5-10.1) mg/dL Magnesium 2.1 (1.8-2.4) mg/dl C-Reactive Protein 7.0 H* (<1.0) mg/dL Triglycerides (<150) mg/dL Cholesterol (<200) mg/dL LDL Cholesterol Direct (<100) mg/dL HDL Cholesterol (40-59) mg/dL 01/06/18 01/07/18 01/07/18 Range/Units 20:45 06:10 06:10 WBC 8.60 (3.98-10.04) K/mm3 RBC 4.02 (3.98-5.22) M/mm3 Hgb 12.1 (11.2-15.7) gm/L Hct 36.2 (34.1-44.9) % MCV 90.0 (79.4-94.8) fl MCH 30.1 (25.6-32.2) pg MCHC 33.4 (32.2-35.5) g/dl RDW Std Deviation 43.2 (36.4-46.3) fL Plt Count 198 (182-369) K/mm3 MPV 10.0 (9.4-12.3) fl Neut % (Auto) 69.4 (34.0-71.1) % Lymph % (Auto) 18.7 L (19.3-51.7) % [place] % (Auto) 7.4 (4.7-12.5) % Eos % (Auto) 3.8 (0.7-5.8) Baso % (Auto) 0.2 (0.1-1.2) % Neut # (Auto) 5.96 (1.56-6.13) K/mm3 Lymph # (Auto) 1.61 (1.18-3.74) K/mm3 [place] # (Auto) 0.64 H (0.24-0.36) K/mm3 Eos # (Auto) 0.33 (0.04-0.36) K/mm3 Baso # (Auto) 0.02 (0.01-0.08) K/mm3 Sodium 143 (136-145) mEq/L Potassium 4.0 (3.5-5.1) mEq/L Chloride 110 H (98-107) mEq/L Carbon Dioxide 25 (21-32) mEq/L Anion Gap 12.0 (5-15) BUN 11 (7-18) mg/dL Creatinine 0.7 (0.55-1.02) mg/dL Est Cr Clr Drug Dosing 102.97 mL/min Estimated GFR (MDRD) > 60 (>60) mL/min BUN/Creatinine Ratio 15.7 (14-18) Glucose 337 H 202 H (74-106) mg/dL POC Glucose (70-105) mg/dL Hemoglobin A1c (4.50-6.20) % Calcium 8.2 L (8.5-10.1) mg/dL Magnesium 1.7 L (1.8-2.4) mg/dl C-Reactive Protein 3.9 H* (<1.0) mg/dL Triglycerides 120 (<150) mg/dL Cholesterol 94 (<200) mg/dL LDL Cholesterol Direct 43 (<100) mg/dL HDL Cholesterol 37.0 L (40-59) mg/dL BEBE Results - Last 24 hrs: Microbiology 01/06/18 00:48 Influenza Type A Antigen Screen - Final Nasopharyngeal Swab - Nare, Unspecified NEGATIVE INFLUENZA A VIRUS AG Influenza Type B Antigen Screen - Final NEGATIVE INFLUENZA B VIRUS AG Med Orders - Current: Current Medications Acetaminophen (Tylenol) 650 mg PO Q4H PRN PRN Reason: Pain (Mild 1-3)/fever Last Admin: 01/07/18 03:32 Dose: 650 mg Acetaminophen/Butalbital/Caffeine (Fioricet 325-50-40 Mg) 1 tab PO Q4H PRN PRN Reason: Headache Last Admin: 01/06/18 09:32 Dose: 1 tab Albuterol/Ipratropium (Duoneb 3.0-0.5 Mg/3 Ml) 3 ml NEB Q6HRRT PRN PRN Reason: wheezing/SOB/cough Aspirin (Halfprin) 81 mg PO DAILY [facility] Dextrose/Water (Dextrose 50% In Water) 50 ml IVPUSH ASDIRECTED PRN PRN Reason: Hypoglycemia Hydralazine HCl (Apresoline) 10 mg IVPUSH Q6H PRN PRN Reason: Hypertension Sodium Chloride (Normal Saline) 1,000 mls @ 999 mls/hr IV ASDIRECTED [facility] Last Admin: 01/05/18 18:05 Dose: 999 mls/hr Insulin Aspart (Novolog) 0 unit SUBCUT QIDACANDBED [facility] PRN Reason: Protocol Last Admin: 01/06/18 21:47 Dose: 12 units Insulin Detemir (Levemir) 0 unit SUBCUT BID [facility] Last Admin: 01/06/18 20:34 Dose: 10 units Ketorolac Tromethamine (Toradol) 30 mg IV Q6H PRN PRN Reason: Pain (moderate 4-6) Lisinopril (Prinivil) 5 mg PO DAILY [facility] Magnesium Oxide (Magnesium Oxide) 800 mg PO ONETIME ONE Stop: 01/07/18 07:31 Magnesium Sulfate (Pharmacy To Dose - Magnesium Replacement) 1 dose .XX ASDIRECTED [facility] Metoprolol Tartrate (Lopressor) 5 mg IVPUSH Q4H PRN PRN Reason: Tachycardia Miscellaneous Information (Remove Patch) 0 ea TRDERM Q72H PRN PRN Reason: CHANGE PATCH AFTER 72 HOURS Nicotine (Habitrol) 21 mg TRDERM DAILY [facility] Last Admin: 01/06/18 08:10 Dose: 21 mg Ondansetron HCl (Zofran Odt) 4 mg PO Q6H PRN PRN Reason: nausea, able to take PO Last Admin: 01/06/18 05:45 Dose: 4 mg Ondansetron HCl (Zofran) 4 mg IV Q4H PRN PRN Reason: Nausea/Vomiting Oxycodone HCl (Oxycodone) 5 mg PO Q6HR PRN PRN Reason: Pain Last Admin: 01/07/18 03:33 Dose: 5 mg Potassium Chloride (Pharmacy To Dose - Potassium Replacement) 1 dose .XX ASDIRECTED PRN PRN Reason: RX TO WATCH K LEVELS Scopolamine (Scopolamine) 1 each TRDERM Q72H PRN PRN Reason: Nausea Last Admin: 01/06/18 09:33 Dose: 1 each Temazepam (Restoril) 15 mg PO BEDTIME PRN PRN Reason: Insomnia Last Admin: 01/06/18 21:46 Dose: 15 mg Discontinued Medications Acetaminophen (Tylenol) 650 mg PO NOW ONE Stop: 01/05/18 19:03 Last Admin: 01/05/18 19:31 Dose: 650 mg Diphenhydramine HCl (Benadryl) 25 mg IVPUSH ONETIME ONE Stop: 01/05/18 21:12 Last Admin: 01/05/18 21:24 Dose: 25 mg Fentanyl (Sublimaze) 50 mcg IVPUSH ONETIME ONE Stop: 01/05/18 18:52 Last Admin: 01/05/18 18:57 Dose: 50 mcg Hydromorphone HCl (Dilaudid) 0.5 mg IVPUSH ONETIME ONE Stop: 01/05/18 17:54 Last Admin: 01/05/18 18:08 Dose: 0.5 mg Hydromorphone HCl (Dilaudid) 0.5 mg IVPUSH ONETIME ONE Stop: 01/05/18 21:13 Last Admin: 01/05/18 21:26 Dose: 0.5 mg Hydromorphone HCl (Dilaudid) 0.5 mg IVPUSH Q2H PRN PRN Reason: Pain (severe 7-10) Last Admin: 01/06/18 03:25 Dose: 0.5 mg Insulin Human Regular 100 unit (/ Sodium Chloride) 100 mls @ 5 mls/hr IV ASDIRECTED TONIO PRN Reason: 5 UNIT/HR Last Infusion: 01/05/18 20:09 Dose: 2 unit/hr, 2 mls/hr Potassium Chloride 10 meq/ (Premix) 100 mls @ 100 mls/hr IV ASDIRECTED STA Stop: 01/05/18 19:49 Last Admin: 01/05/18 19:46 Dose: 100 mls/hr Magnesium Sulfate 2 gm/ Premix 50 mls @ 25 mls/hr IV ONETIME ONE Stop: 01/05/18 21:07 Last Admin: 01/05/18 20:11 Dose: 25 mls/hr Dextrose/Sodium Chloride (Dextrose 5%-Normal Saline) 1,000 mls @ 250 mls/hr IV ASDIRECTED [facility] Last Admin: 01/05/18 21:01 Dose: 250 mls/hr Potassium Chloride 10 meq/ (Premix) 100 mls @ 100 mls/hr IV ONETIME ONE Stop: 01/05/18 21:29 Last Admin: 01/05/18 21:02 Dose: 100 mls/hr Potassium Chloride 10 meq/ (Premix) 100 mls @ 100 mls/hr IV Q1H [facility] Stop: 01/06/18 00:59 Last Admin: 01/06/18 08:49 Dose: Not Given Dextrose/Sodium Chloride (Dextrose 5%-Normal Saline) 1,000 mls @ 100 mls/hr IV ASDIRECTED [facility] Stop: 01/06/18 02:00 Dextrose/Sodium Chloride (Dextrose 5%-Normal Saline) 1,000 mls @ 75 mls/hr IV ASDIRECTED [facility] Stop: 01/06/18 05:00 Last Admin: 01/06/18 01:19 Dose: 75 mls/hr Dextrose/Sodium Chloride (Dextrose 5%-Normal Saline) 1,000 mls @ 50 mls/hr IV ASDIRECTED [facility] Stop: 01/06/18 08:00 Dextrose/Sodium Chloride (Dextrose 5%-Normal Saline) 1,000 mls @ 25 mls/hr IV ASDIRECTED [facility] Dextrose/Sodium Chloride (Dextrose 5%-Normal Saline) 1,000 mls @ 75 mls/hr IV ASDIRECTED [facility] Stop: 01/06/18 02:00 Dextrose/Sodium Chloride (Dextrose 5%-Normal Saline) 1,000 mls @ 50 mls/hr IV ASDIRECTED [facility] Stop: 01/06/18 08:00 Last Admin: 01/06/18 05:41 Dose: 50 mls/hr Magnesium Sulfate/Dextrose 1 (gm/ Premix) 100 mls @ 100 mls/hr IV ONETIME ONE Stop: 01/07/18 08:14 Insulin Detemir (Levemir) 10 unit SUBCUT ONETIME ONE Stop: 01/06/18 21:01 Insulin Human Regular (Humulin R) 0 unit SUBCUT BIDAC STA PRN Reason: Protocol Stop: 01/06/18 02:20 Last Admin: 01/06/18 02:34 Dose: 15 units Ketorolac Tromethamine (Toradol) 30 mg IM ONETIME ONE Stop: 01/06/18 14:28 Last Admin: 01/06/18 14:51 Dose: 30 mg Lorazepam (Ativan) 1 mg IVPUSH ONETIME ONE Stop: 01/06/18 14:28 Last Admin: 01/06/18 14:50 Dose: 1 mg Lorazepam (Ativan) 1 mg IVPUSH ONETIME ONE Stop: 01/06/18 20:19 Last Admin: 01/06/18 21:46 Dose: 1 mg Metoclopramide HCl (Reglan) 7.5 mg IVPUSH ONETIME ONE Stop: 01/05/18 17:54 Last Admin: 01/05/18 18:07 Dose: 7.5 mg Ondansetron HCl (Zofran) 4 mg IVPUSH ONETIME ONE Stop: 01/05/18 21:12 Last Admin: 01/05/18 21:21 Dose: 4 mg Oseltamivir Phosphate (Tamiflu) 75 mg PO ONETIME ONE Stop: 01/05/18 19:34 Last Admin: 01/05/18 19:50 Dose: 75 mg Potassium Chloride (Klor-Con M20) 60 meq PO ONETIME ONE Stop: 01/05/18 23:33 Last Admin: 01/05/18 23:51 Dose: 60 meq - Exam General: Reports: Alert, Oriented, Cooperative, No Acute Distress HEENT: Reports: Pupils Equal, Pupils Reactive, EOMI, Mucous Membr. Moist/[place] Neck: Reports: Supple, Trachea Midline, No JVD, No Thyromegaly Lungs: Reports: Clear to Auscultation, Normal Respiratory Effort Cardiovascular: Reports: Regular Rate, Regular Rhythm GI/Abdominal Exam: Normal Bowel Sounds, Soft, Non-Tender, No Organomegaly, No Distention, No Abnormal Bruit (Female) Exam: Deferred Rectal (Female) Exam: Deferred Back Exam: Reports: Normal Inspection, Decreased Range of Motion Extremities: Normal Inspection, Normal Range of Motion, Non-Tender, No Pedal Edema, Normal Capillary Refill Skin: Reports: Warm, Dry, Intact Neurological: Reports: No New Focal Deficit Psy/Mental Status: Reports: Alert, Normal Affect, Normal Mood *Q Meaningful Use (DIS) - VTE *Q VTE Criteria *Q: - Stroke *Q Stroke Criteria *Q: - AMI *Q AMI Criteria *Q:
[2018-01-07] MEDS: Insulin Aspart 100 Units/ML 3 ML Pen SUBCUT SCH (07:47)
[2018-01-07] MEDS ORDERED: Lisinopril 5 MG Tab PO SCH (09:00)
[2018-01-07] MEDS ORDERED: Aspirin 81 MG Tab.EC PO SCH (09:00)
[2018-01-07] MEDS: Insulin Detemir 100 Units/ML 3 ML Pen SUBCUT SCH (09:06)
[2018-01-07] MEDS: Nicotine 21 MG/24 Hr Patch TRDERM SCH (09:07)
== END 2018-01-07 09:10 | disposition home or self-care (01) ==
LOC: JD.ED 16:47 → JD.ICU 21:17
PROVIDERS: ADMIT Internal Medicine; ATTEND Internal Medicine
DX: E10.65 Type 1 diabetes mellitus with hyperglycemia (principal); M19.90 Unspecified osteoarthritis, unspecified site; G40.909 Epilepsy, unspecified, not intractable, without status epilepticus; L30.9 Dermatitis, unspecified; L40.9 Psoriasis, unspecified; F14.988 Cocaine use, unspecified with other cocaine-induced disorder; E83.42 Hypomagnesemia; E86.0 Dehydration; R50.9 Fever, unspecified; E87.6 Hypokalemia; R11.14 Bilious vomiting; E10.40 Type 1 diabetes mellitus with diabetic neuropathy, unspecified; F17.210 Nicotine dependence, cigarettes, uncomplicated; E87.1 Hypo-osmolality and hyponatremia; N80.9 Endometriosis, unspecified; M54.9 Dorsalgia, unspecified; G89.29 Other chronic pain; G43.919 Migraine, unspecified, intractable, without status migrainosus; F12.90 Cannabis use, unspecified, uncomplicated; N28.89 Other specified disorders of kidney and ureter; Z90.49 Acquired absence of other specified parts of digestive tract; Z76.5 Malingerer [conscious simulation]; Z79.4 Long term (current) use of insulin; Z79.82 Long term (current) use of aspirin; Z79.899 Other long term (current) drug therapy; Z88.6 Allergy status to analgesic agent; Z91.040 Latex allergy status
CPT/HCPCS: 36415; 71045; 80048; 80053; 80061; 81001; 82009; 82947; 82962; 83036; 83735; 83930; 84100; 85025; 86140; 87804; 93005; 96361; 96365; 96366; 96367; 96368; 96372; 96375; 96376; 97110; 97161; 99285; A9270; G0378; J1170; J1200; J1815; J1817; J1885; J2060; J2405; J2765; J3010; J3480; J7030; J7040; J7042; J3475

== ENCOUNTER 2018-01-16 15:24 | Emergency (ER) | payer MEDICAID ==
[2018-01-16] MEDS ORDERED: Sodium Chloride 0.9% 2,000 ML IV ONE (16:05)
[2018-01-16] MEDS ORDERED: Ondansetron 4 MG/2 ML SDV IVPUSH ONE (16:05)
[2018-01-16] MEDS ORDERED: Dicyclomine 10 MG Cap PO ONE (16:06)
--- NOTE | 2018-01-16 16:09 | EDM.PDOC ---
ED HPI GENERAL MEDICAL PROBLEM - General Chief Complaint: Diabetic Complaint Stated Complaint: HIGH BLOOD SUGAR Time Seen by Provider: 01/16/18 15:51 Source of Information: Reports: Patient History Limitations: Reports: No Limitations - History of Present Illness INITIAL COMMENTS - FREE TEXT/NARRATIVE: Patient's 32-year-old female presents ED complaining of elevated blood sugars, polydipsia, polyuria, and also lower abdominal pain with intermittent diarrhea. She is also mildly nauseated. She was seen by Dr. Levine her new PCP today with blood sugar reading of 708. Patient does take long short acting insulin. States at 9:00 this morning she took 22 units Lantus and also 16 units of NovoLog at noon. Bedside blood sugar upon admission to the ED was greater 400. Patient states she's had type 1 diabetes the past 10 years. Normally blood sugars are in the high 200s. Last A1c was 12.4. Pain to the lower abdomen is described as crampy, sharp, discomfort rated 8 out of 10 that waxes and wanes in intensity. She does have some mild pain with urination. Intermittent nausea with no emesis. She states she's had no prior history of UTIs. Has a history of small bowel resection thus has chronic diarrhea. Of note no worsening diarrhea noted. She denies any ingestion of bad or questionable food or recent sick exposures. 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 Denies any recent recreational drugs or alcohol use. Past medical history includes: Small bowel obstruction with status post bowel resection, acute renal failure, endometriosis, type 1 diabetes, migraines, seizures, meth addiction Current medications see list. Surgeries: Cholecystectomy, bowel resection Abdomen Pain Score (Numeric/FACES): 8 - Related Data Allergies Allergy/AdvReac Type Severity Reaction Status Date / Time latex Allergy Hives Verified 01/05/18 17:20 tramadol Allergy Hives Verified 01/05/18 17:20 Home Meds: Home Meds Insulin Aspart [Novolog Flexpen] 9 units SUBCNJ TIDMEALS 01/05/18 [History] Insulin Glarg,Human.Rec.Analog [Lantus Solostar] 20 unit SUBCUT QAM 01/05/18 [ History] Aspirin [Halfprin] 81 mg PO DAILY #30 tab.ec 01/07/18 [Rx] Lisinopril [Prinivil] 5 mg PO DAILY #30 tablet 01/07/18 [Rx] Nicotine [Nicotine Patch] 1 each TD DAILY #30 patch.td24 01/07/18 [Rx] oxyCODONE 5 mg PO Q6HR PRN #12 tablet 01/07/18 [Rx] Ciprofloxacin HCl [Cipro] 500 mg PO BID #20 tablet 01/16/18 [Rx] Ondansetron [Zofran ODT] 4 mg PO Q6H PRN #15 tab.dis 01/16/18 [Rx] Potassium Chloride 20 meq PO DAILY #60 cap.er 01/16/18 [Rx] metroNIDAZOLE [Flagyl] 500 mg PO Q8H #30 tab 01/16/18 [Rx] Past Medical History 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 History: Reports: Acute Renal Failure 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 Has been tested x 3 since initial diagnosis, all three are negative. - Past Surgical History GI Surgical History: Reports: Cholecystectomy, Other (See Below) Other GI Surgeries/Procedures: bowel resection Social & Family History - Family History Family Medical History: Noncontributory - Tobacco Use Smoking Status *Q: Current Every Day Smoker Years of Tobacco use: 20 Packs/Tins Daily: 1 Second Hand Smoke Exposure: Yes - Caffeine Use Caffeine Use: Reports: Soda Other Caffeine Use: drinks mellow yellow daily about 3 cans - Recreational Drug Use Recreational Drug Use: Yes Drug Use in Last 12 Months: Yes Recreational Drug Type: Reports: Marijuana/Hashish Other Recreational Drug Type: last used few weeks ago Recreational Drug Use Frequency: Socially - Living Situation & Occupation Living situation: Reports: Single Occupation: Disabled ED ROS GENERAL - Review of Systems Review Of Systems: See Below Constitutional: Reports: Malaise, Fatigue. Denies: Fever, Chills HEENT: Reports: No Symptoms Respiratory: Reports: No Symptoms Cardiovascular: Reports: No Symptoms GI/Abdominal: Reports: Abdominal Pain, Diarrhea, Nausea. Denies: Vomiting : Reports: Dysuria, Frequency. Denies: Discharge, Hematuria Musculoskeletal: Reports: No Symptoms Skin: Reports: No Symptoms Neurological: Reports: No Symptoms ED EXAM GENERAL NO PERIP PULSE - Physical Exam Exam: See Below Exam Limited By: No Limitations General Appearance: Alert, WD/WN, No Apparent Distress Ears: Normal External Exam, Hearing Grossly Normal Nose: Normal Inspection, Other (dry oral mucosa) Neck: Normal Inspection, Supple Respiratory/Chest: No Respiratory Distress, Lungs Clear, Normal Breath Sounds Cardiovascular: Normal Peripheral Pulses, Regular Rate, Rhythm GI/Abdominal: Soft, Tender (lower abdomen), Abnormal Bowel Sounds (hyperactive) Back Exam: Normal Inspection. No: CVA Tenderness (L), CVA Tenderness (R) Extremities: Normal Inspection Neurological: Alert, Oriented Course - Vital Signs Last Recorded V/S: Last Vital Signs Temp 98.2 F 01/16/18 15:39 Pulse 88 01/16/18 15:39 Resp 20 01/16/18 15:39 BP 183/110 H 01/16/18 15:39 Pulse Ox 100 01/16/18 15:39 - Orders/Labs/Meds Orders: Active Orders 24 hr Category Date Time Status Blood Glucose Check, Bedside [RC] ONETIME Care 01/16/18 15:34 Active EKG Documentation Completion [RC] STAT Care 01/16/18 16:04 Active Glucose [Blood Glucose Check, Bedside] [RC] ONETIME Care 01/16/18 18:28 Active Peripheral IV Care [RC] . DIRECTED Care 01/16/18 16:05 Active Peripheral IV Insertion Adult [OM.PC] Stat Oth 01/16/18 16:04 Ordered Labs: Laboratory Tests 01/16/18 01/16/18 01/16/18 Range/Units 16:05 16:05 16:05 WBC 8.15 (3.98-10.04) K/mm3 RBC 4.02 (3.98-5.22) M/mm3 Hgb 12.2 (11.2-15.7) gm/L Hct 36.3 (34.1-44.9) % MCV 90.3 (79.4-94.8) fl MCH 30.3 (25.6-32.2) pg MCHC 33.6 (32.2-35.5) g/dl RDW Std Deviation 42.8 (36.4-46.3) fL Plt Count 346 (182-369) K/mm3 MPV 9.2 L (9.4-12.3) fl Neut % (Auto) 68.2 (34.0-71.1) % Lymph % (Auto) 24.8 (19.3-51.7) % Cross % (Auto) 4.8 (4.7-12.5) % Eos % (Auto) 1.3 (0.7-5.8) Baso % (Auto) 0.5 (0.1-1.2) % Neut # (Auto) 5.56 (1.56-6.13) K/mm3 Lymph # (Auto) 2.02 (1.18-3.74) K/mm3 Cross # (Auto) 0.39 H (0.24-0.36) K/mm3 Eos # (Auto) 0.11 (0.04-0.36) K/mm3 Baso # (Auto) 0.04 (0.01-0.08) K/mm3 PT 9.4 (8.0-13.0) SECONDS INR 0.87 VBG pH (7.30-7.40) Sodium 139 (136-145) mEq/L Potassium 3.0 L (3.5-5.1) mEq/L Chloride 101 (98-107) mEq/L Carbon Dioxide 27 (21-32) mEq/L Anion Gap 14.0 (5-15) BUN 3 L (7-18) mg/dL Creatinine 0.8 (0.55-1.02) mg/dL Est Cr Clr Drug Dosing TNP Estimated GFR (MDRD) > 60 (>60) mL/min BUN/Creatinine Ratio 3.8 L (14-18) Glucose 374 H (74-106) mg/dL POC Glucose (70-105) mg/dL Serum Osmolality 302 H (280-300) mosm/kg Calcium 8.9 (8.5-10.1) mg/dL Total Bilirubin 0.2 (0.2-1.0) mg/dL AST 27 (15-37) U/L ALT 69 H (14-59) U/L Alkaline Phosphatase 146 H (46-116) U/L Troponin I < 0.017 (0.00-0.056) ng/mL C-Reactive Protein 1.9 H* (<1.0) mg/dL Total Protein 6.7 (6.4-8.2) g/dl Albumin 3.0 L (3.4-5.0) g/dl Globulin 3.7 gm/dL Albumin/Globulin Ratio 0.8 L (1-2) Lipase 194 (73-393) U/L TSH 3rd Generation 0.476 (0.358-3.74) uIU/mL HCG, Qual (NEGATIVE) Urine Color (Yellow) Urine Appearance (Clear) Urine pH (5.0-8.0) Ur Specific [place] (1.005-1.030) Urine Protein (Negative) Urine Glucose (UA) (Negative) Urine Ketones (Negative) Urine Occult Blood (Negative) Urine Nitrite (Negative) Urine Bilirubin (Negative) Urine Urobilinogen (0.2-1.0) Ur Leukocyte Esterase (Negative) Urine RBC (0-5) /hpf Urine WBC (0-5) /hpf Ur Epithelial Cells (0-5) /hpf Urine Bacteria (FEW) /hpf Urine Mucus (FEW) /hpf Urine Opiates Screen (NEGATIVE) Ur Buprenorphine Scrn (NEGATIVE) Ur Oxycodone Screen (NEGATIVE) Urine Methadone Screen (NEGATIVE) Ur Propoxyphene Screen (NEGATIVE) Ur Barbiturates Screen (NEGATIVE) Ur Tricyclics Screen (NEGATIVE) Ur Phencyclidine Scrn (NEGATIVE) Ur Amphetamine Screen (NEGATIVE) U Methamphetamines Scrn (NEGATIVE) U Benzodiazepines Scrn (NEGATIVE) U Cocaine Metab Screen (NEGATIVE) U Marijuana (THC) Screen (NEGATIVE) Ketones (0.0-0.3) mM 01/16/18 01/16/18 01/16/18 Range/Units 16:05 16:05 17:00 WBC (3.98-10.04) K/mm3 RBC (3.98-5.22) M/mm3 Hgb (11.2-15.7) gm/L Hct (34.1-44.9) % MCV (79.4-94.8) fl MCH (25.6-32.2) pg MCHC (32.2-35.5) g/dl RDW Std Deviation (36.4-46.3) fL Plt Count (182-369) K/mm3 MPV (9.4-12.3) fl Neut % (Auto) (34.0-71.1) % Lymph % (Auto) (19.3-51.7) % Cross % (Auto) (4.7-12.5) % Eos % (Auto) (0.7-5.8) Baso % (Auto) (0.1-1.2) % Neut # (Auto) (1.56-6.13) K/mm3 Lymph # (Auto) (1.18-3.74) K/mm3 Cross # (Auto) (0.24-0.36) K/mm3 Eos # (Auto) (0.04-0.36) K/mm3 Baso # (Auto) (0.01-0.08) K/mm3 PT (8.0-13.0) SECONDS INR VBG pH (7.30-7.40) Sodium (136-145) mEq/L Potassium (3.5-5.1) mEq/L Chloride (98-107) mEq/L Carbon Dioxide (21-32) mEq/L Anion Gap (5-15) BUN (7-18) mg/dL Creatinine (0.55-1.02) mg/dL Est Cr Clr Drug Dosing Estimated GFR (MDRD) (>60) mL/min BUN/Creatinine Ratio (14-18) Glucose (74-106) mg/dL POC Glucose (70-105) mg/dL Serum Osmolality (280-300) mosm/kg Calcium (8.5-10.1) mg/dL Total Bilirubin (0.2-1.0) mg/dL AST (15-37) U/L ALT (14-59) U/L Alkaline Phosphatase (46-116) U/L Troponin I (0.00-0.056) ng/mL C-Reactive Protein (<1.0) mg/dL Total Protein (6.4-8.2) g/dl Albumin (3.4-5.0) g/dl Globulin gm/dL Albumin/Globulin Ratio (1-2) Lipase (73-393) U/L TSH 3rd Generation (0.358-3.74) uIU/mL HCG, Qual Negative (NEGATIVE) Urine Color (Yellow) Urine Appearance (Clear) Urine pH (5.0-8.0) Ur Specific [place] (1.005-1.030) Urine Protein (Negative) Urine Glucose (UA) (Negative) Urine Ketones (Negative) Urine Occult Blood (Negative) Urine Nitrite (Negative) Urine Bilirubin (Negative) Urine Urobilinogen (0.2-1.0) Ur Leukocyte Esterase (Negative) Urine RBC (0-5) /hpf Urine WBC (0-5) /hpf Ur Epithelial Cells (0-5) /hpf Urine Bacteria (FEW) /hpf Urine Mucus (FEW) /hpf Urine Opiates Screen Negative (NEGATIVE) Ur Buprenorphine Scrn Negative (NEGATIVE) Ur Oxycodone Screen Negative (NEGATIVE) Urine Methadone Screen Negative (NEGATIVE) Ur Propoxyphene Screen Negative (NEGATIVE) Ur Barbiturates Screen Negative (NEGATIVE) Ur Tricyclics Screen Negative (NEGATIVE) Ur Phencyclidine Scrn Negative (NEGATIVE) Ur Amphetamine Screen Negative (NEGATIVE) U Methamphetamines Scrn Negative (NEGATIVE) U Benzodiazepines Scrn Negative (NEGATIVE) U Cocaine Metab Screen Negative (NEGATIVE) U Marijuana (THC) Screen Negative (NEGATIVE) Ketones 0.18 (0.0-0.3) mM 01/16/18 01/16/18 01/16/18 Range/Units 17:00 18:30 18:37 WBC (3.98-10.04) K/mm3 RBC (3.98-5.22) M/mm3 Hgb (11.2-15.7) gm/L Hct (34.1-44.9) % MCV (79.4-94.8) fl MCH (25.6-32.2) pg MCHC (32.2-35.5) g/dl RDW Std Deviation (36.4-46.3) fL Plt Count (182-369) K/mm3 MPV (9.4-12.3) fl Neut % (Auto) (34.0-71.1) % Lymph % (Auto) (19.3-51.7) % Cross % (Auto) (4.7-12.5) % Eos % (Auto) (0.7-5.8) Baso % (Auto) (0.1-1.2) % Neut # (Auto) (1.56-6.13) K/mm3 Lymph # (Auto) (1.18-3.74) K/mm3 Cross # (Auto) (0.24-0.36) K/mm3 Eos # (Auto) (0.04-0.36) K/mm3 Baso # (Auto) (0.01-0.08) K/mm3 PT (8.0-13.0) SECONDS INR VBG pH 7.45 H (7.30-7.40) Sodium (136-145) mEq/L Potassium (3.5-5.1) mEq/L Chloride (98-107) mEq/L Carbon Dioxide (21-32) mEq/L Anion Gap (5-15) BUN (7-18) mg/dL Creatinine (0.55-1.02) mg/dL Est Cr Clr Drug Dosing Estimated GFR (MDRD) (>60) mL/min BUN/Creatinine Ratio (14-18) Glucose (74-106) mg/dL POC Glucose 195 H (70-105) mg/dL Serum Osmolality (280-300) mosm/kg Calcium (8.5-10.1) mg/dL Total Bilirubin (0.2-1.0) mg/dL AST (15-37) U/L ALT (14-59) U/L Alkaline Phosphatase (46-116) U/L Troponin I (0.00-0.056) ng/mL C-Reactive Protein (<1.0) mg/dL Total Protein (6.4-8.2) g/dl Albumin (3.4-5.0) g/dl Globulin gm/dL Albumin/Globulin Ratio (1-2) Lipase (73-393) U/L TSH 3rd Generation (0.358-3.74) uIU/mL HCG, Qual (NEGATIVE) Urine Color Light yellow (Yellow) Urine Appearance Clear (Clear) Urine pH 7.0 (5.0-8.0) Ur Specific [place] 1.015 (1.005-1.030) Urine Protein Negative (Negative) Urine Glucose (UA) 2+ H (Negative) Urine Ketones Negative (Negative) Urine Occult Blood 1+ H (Negative) Urine Nitrite Negative (Negative) Urine Bilirubin Negative (Negative) Urine Urobilinogen 0.2 (0.2-1.0) Ur Leukocyte Esterase Negative (Negative) Urine RBC 5-10 H (0-5) /hpf Urine WBC 5-10 H (0-5) /hpf Ur Epithelial Cells 0-5 (0-5) /hpf Urine Bacteria Few (FEW) /hpf Urine Mucus Not seen (FEW) /hpf Urine Opiates Screen (NEGATIVE) Ur Buprenorphine Scrn (NEGATIVE) Ur Oxycodone Screen (NEGATIVE) Urine Methadone Screen (NEGATIVE) Ur Propoxyphene Screen (NEGATIVE) Ur Barbiturates Screen (NEGATIVE) Ur Tricyclics Screen (NEGATIVE) Ur Phencyclidine Scrn (NEGATIVE) Ur Amphetamine Screen (NEGATIVE) U Methamphetamines Scrn (NEGATIVE) U Benzodiazepines Scrn (NEGATIVE) U Cocaine Metab Screen (NEGATIVE) U Marijuana (THC) Screen (NEGATIVE) Ketones (0.0-0.3) mM Meds: Medications Discontinued Medications Generic Name Dose Route Start Last Admin Trade Name Freq PRN Reason Stop Dose Admin Diatrizoate Meglum/Diatrizoate Sod 90 ml 01/16/18 16:13 01/16/18 18:04 Gastrografin 37% PO 01/16/18 16:14 90 ml ONETIME ONE Administration Dicyclomine HCl 20 mg 01/16/18 16:06 01/16/18 16:16 Bentyl PO 01/16/18 16:07 20 mg ONETIME ONE Administration Hydromorphone HCl 0.25 mg 01/16/18 16:45 01/16/18 16:59 Dilaudid IVPUSH 01/16/18 16:46 0.25 mg ONETIME ONE Administration Sodium Chloride 2,000 mls @ 999 mls/hr 01/16/18 16:05 01/16/18 16:13 Normal Saline IV 01/16/18 18:05 999 mls/hr ONETIME ONE Administration Potassium Chloride 10 meq/ 100 mls @ 100 mls/hr 01/16/18 16:58 01/16/18 17:32 Premix IV 01/16/18 17:57 100 mls/hr ASDIRECTED ONE Administration Potassium Chloride 10 meq/ 100 mls @ 100 mls/hr 01/16/18 16:59 01/16/18 19:19 Premix IV 01/16/18 17:58 Not Given ASDIRECTED ONE Iopamidol 100 ml 01/16/18 16:51 01/16/18 18:04 Isovue-300 (61%) IVPUSH 01/16/18 16:52 100 ml ONETIME ONE Administration Ondansetron HCl 4 mg 01/16/18 16:05 01/16/18 16:14 Zofran IVPUSH 01/16/18 16:06 4 mg ONETIME ONE Administration Oxycodone/Acetaminophen 1 tab 01/16/18 19:11 01/16/18 19:19 Percocet 325-5 Mg PO 01/16/18 19:12 1 tab ONETIME ONE Administration Potassium Chloride 20 meq 01/16/18 19:15 01/16/18 19:19 Klor-Con M20 PO 01/16/18 19:16 20 meq ONETIME ONE Administration Sodium Chloride 10 ml 01/16/18 16:05 01/16/18 18:04 Saline Flush FLUSH 10 ml ASDIRECTED PRN Administration Keep Vein Open Sodium Chloride 10 ml 01/16/18 16:13 01/16/18 16:58 Saline Flush FLUSH 01/16/18 16:14 10 ml ONETIME ONE Administration - Re-Assessments/Exams Free Text/Narrative Re-Assessment/Exam: IV established Initial labs back reviewed. CBC was essentially normal. She panel revealed potassium 3.0, AG 14.0, creatinine 0.8, glucose 374, AST 69, alk phosphatase 146 , troponin less than 0.017, CRP mildly elevated 1.9, lipase 194, TSH 0.476. Urine drug tox, serum osmolality, venous pH, serum ketones, and UA are all pending. 01/16/18 17:58 EKG sinus rhythm rate of [address] changes noted. Venous pH is 7.45, serum osmolality was 302, serum ketones 0.18, UA 2+ glucose, occult blood 1+. Urine rbc's 5-10, urine wbc's 5-10. Bedside glucose 195. No treatment required at this time. Patient has a questionable UTI. CT revealed diffuse small bowel wall thickening. This is compatible with nonspecific enteritis. Patchy enhancement of the kidneys which can be seen with pyelonephritis all doses more likely due to timing of the enhancement but please exclude the patient as having a urinary tract infection symptoms. Other incidental findings. Discussed the plan with Dr. Beach. Agreed Flagyl and Cipro on an outpatient basis. We'll also prescribe an oral pain medication. Discharge instructions as documented. Departure - Departure Time of Disposition: 19:02 Disposition: Home, Self-Care 01 Condition: Good Clinical Impression: Enteritis, Blood glucose elevated, Hypokalemia Abdominal pain Qualifiers: Abdominal location: lower abdomen, unspecified Qualified Code(s): R10.30 - Lower abdominal pain, unspecified UTI (urinary tract infection) Qualifiers: Urinary tract infection type: site unspecified Hematuria presence: with hematuria Qualified Code(s): N39.0 - Urinary tract infection, site not specified - Discharge Information Prescriptions: Ciprofloxacin HCl [Cipro] 500 mg PO BID #20 tablet metroNIDAZOLE [Flagyl] 500 mg PO Q8H #30 tab Ondansetron [Zofran ODT] 4 mg PO Q6H PRN #15 tab.dis PRN Reason: Nausea/Vomiting Potassium Chloride 20 meq PO DAILY #60 cap.er Instructions: Abdominal Pain, Adult, Urinary Tract Infection, Adult, Easy-to- Read, Type 1 Diabetes Mellitus, Diagnosis, Adult, Hyperglycemia, [id number], Abdominal Pain, Adult, [id number], Urinary Tract Infection, Adult Referrals: Bull Ashton [Primary Care Provider] - Forms: ED Department Discharge Additional Instructions: As discussed CT revealed findings concerning for infection within the small bowel. Treatment will consist of Cipro 500 mg 1 tablet twice a day for 10 days and also Flagyl 500 mg one tab 3 times a day for 10 days. UA did reveal findings concerning for urinary tract infection as well. Cipro will treat this. In addition your blood sugar was quite elevated with admission to the ED. It has come down without treatment in the ED. Please monitor your blood sugars more closely. Suggest over the next 12 hours checking it every 4 hours ensuring it does not continue to drop too low. If it does get below 100 suggest having something to eat high in protein and that will not spike your blood sugar. Continue to take all your home medications as prescribed. Follow-up with PCP this coming Friday for reevaluation. Call and make an appointment to be seen. If you develop any new or worsening symptoms please return to the ED. potassium is low. Take potassium 20 mEq every day. PCP should recheck your potassium level this coming Friday or Friday. Drink Powerade and or Gatorade as well. - My Orders Last 24 Hours: My Active Orders 01/16/18 15:34 Blood Glucose Check, Bedside [RC] ONETIME 01/16/18 16:04 EKG Documentation Completion [RC] STAT Peripheral IV Insertion Adult [OM.PC] Stat 01/16/18 16:05 Peripheral IV Care [RC] . DIRECTED 01/16/18 18:28 Glucose [Blood Glucose Check, Bedside] [RC] ONETIME - Assessment/Plan Last 24 Hours: My Active Orders 01/16/18 15:34 Blood Glucose Check, Bedside [RC] ONETIME 01/16/18 16:04 EKG Documentation Completion [RC] STAT Peripheral IV Insertion Adult [OM.PC] Stat 01/16/18 16:05 Peripheral IV Care [RC] . DIRECTED 01/16/18 18:28 Glucose [Blood Glucose Check, Bedside] [RC] ONETIME
[2018-01-16] MEDS ORDERED: Sodium Chloride 0.9% 10 ML Syringe FLUSH ONE (16:13)
[2018-01-16] MEDS ORDERED: Diatrizoate Meglumine/Diatrizoate Sodium 37% 120 ML Bottle PO ONE (16:13)
[2018-01-16] MEDS: Sodium Chloride 0.9% 10 ML Syringe FLUSH PRN ×2 (16:15→18:04)
[2018-01-16] MEDS ORDERED: HYDROmorphone 0.5 MG/0.5 ML SYRINGE IVPUSH ONE (16:45)
--- NOTE | 2018-01-16 16:47 | CR ---
Chest: Portable view of the chest was obtained. Comparison: Prior chest x-ray of 01/05/18. Heart size and mediastinum are normal. Lungs are clear. Mild scoliosis is present within the spine most likely positional. No acute bony abnormality is seen. Impression: 1. Incidental findings. Nothing acute is seen on portable chest x-ray. Diagnostic code #1
[2018-01-16] MEDS ORDERED: Iopamidol 612 MG/ML 100 ML Bottle IVPUSH ONE (16:51)
[2018-01-16] MEDS ORDERED: Potassium Chloride 10 MEQ in Premix Bag 1 BAG IV ONE ×2 (16:58→16:59)
--- NOTE | 2018-01-16 18:45 | CT ---
CT abdomen and pelvis Technique: Multiple axial sections were obtained from above the dome of the diaphragm inferiorly through the pubic symphysis. Intravenous and oral contrast was utilized. Delayed images were obtained through the bladder. Comparison: No previous abdominal imaging. Findings: Visualized lung bases shows nothing acute. Liver shows no focal parenchymal abnormality. Minimal diminished density is noted within the liver around the ligamentum teres fissure which is incidental. Surgical clips are seen from prior cholecystectomy. Spleen appears within normal limits. Adrenal glands show no nodule. Kidneys are slightly patchy in their enhancement. No hydronephrosis or mass is appreciated. Pancreas appears within normal limits. Aorta shows no aneurysmal dilatation. No retroperitoneal adenopathy is seen. No pelvic mass or adenopathy is seen. Appendix is seen and is normal. Diffuse small bowel wall thickening is seen. No inflammatory change is noted. No free fluid is seen. Impression: 1. Diffuse small bowel wall thickening. This is compatible with nonspecific enteritis. 2. Patchy enhancement of the kidneys which can be seen with pyelonephritis although this is more likely due to timing of enhancement but please exclude the patient as having any urinary tract infection symptoms. 3. Other incidental findings. Diagnostic code #3
[2018-01-16] MEDS ORDERED: Acetaminophen/oxyCODONE 325-5 MG Tab PO ONE (19:11)
[2018-01-16] MEDS ORDERED: Potassium Chloride 20 MEQ Tab.ER PO ONE (19:15)
== END 2018-01-16 19:40 | disposition home or self-care (01) ==
LOC: JD.ED 15:24
DX: E10.65 Type 1 diabetes mellitus with hyperglycemia (principal); K52.9 Noninfective gastroenteritis and colitis, unspecified; N39.0 Urinary tract infection, site not specified; R31.9 Hematuria, unspecified; E87.6 Hypokalemia; F17.210 Nicotine dependence, cigarettes, uncomplicated; Z91.040 Latex allergy status; Z88.5 Allergy status to narcotic agent; Z79.82 Long term (current) use of aspirin; Z79.899 Other long term (current) drug therapy; Z90.49 Acquired absence of other specified parts of digestive tract
CPT/HCPCS: 36415; 71045; 74177; 80053; 80306; 81001; 82009; 82800; 82962; 83690; 83930; 84443; 84484; 84703; 85025; 85610; 86140; 93005; 96361; 96365; 96366; 96375; 99284; A9270; J1170; J2405; J3480; J7040; J7050; Q9963; Q9967

== ENCOUNTER 2018-04-08 16:12 | Emergency (ER) | payer MEDICAID ==
[2018-04-08] MEDS ORDERED: Sodium Chloride 0.9% 1,000 ML IV ONE ×2 (16:26→16:59)
[2018-04-08] MEDS ORDERED: Sodium Chloride 0.9% 10 ML Syringe FLUSH PRN (16:26)
[2018-04-08] MEDS ORDERED: Metoclopramide 10 MG/2 ML SDV IVPUSH ONE ×2 (16:59→21:07)
[2018-04-08] MEDS ORDERED: Ondansetron 4 MG/2 ML SDV IVPUSH ONE (16:59)
[2018-04-08] MEDS ORDERED: Morphine 4 MG/ML Syringe IVPUSH PRN (16:59)
--- NOTE | 2018-04-08 17:04 | EDM.PDOC ---
<Ivis Beach Ger - Last Filed: 04/08/18 18:04> ED HPI GENERAL MEDICAL PROBLEM - General Chief Complaint: Diabetic Complaint Stated Complaint: BLOOD SUGARS HIGH Time Seen by Provider: 04/08/18 16:26 Source of Information: Reports: Patient History Limitations: Reports: No Limitations - History of Present Illness INITIAL COMMENTS - FREE TEXT/NARRATIVE: The patient is a 32-year-old female with a history of type 1 diabetes who presents with vomiting and high blood pressure. She states that her symptoms started today. She's been vomiting everything today including all liquids. She' s also had a lot of diarrhea. She does have a history of small bowel resection after an obstruction and states that she always has diarrhea but it's watery and worse today. She is diffuse abdominal cramping, moderate. Pain is not related to movement. No fever. She checked her blood sugar and states that it was too high to read. She did take her usual doses of insulin today, the last insulin was around 10 AM this morning. She's not sure how many units this dose was. No cough. No chest pain. No shortness of breath. She does have a wound on the right lower extremity its been there for about a week after she injured her leg by hitting it against a coffee table. There is been some oozing from the wound. No significant leg pain. Abdominal Pain Score (Numeric/FACES): 8 - Related Data Allergies Allergy/AdvReac Type Severity Reaction Status Date / Time latex Allergy Hives Verified 04/08/18 16:18 tramadol Allergy Hives Verified 04/08/18 16:18 Home Meds: Home Meds Insulin Aspart [Novolog Flexpen] 9 units SUBCNJ TIDMEALS 01/05/18 [History] Insulin Glarg,Human.Rec.Analog [Lantus Solostar] 20 unit SUBCUT QAM 01/05/18 [ History] Ondansetron [Zofran ODT] 4 mg PO Q6H PRN #15 tab.dis 01/16/18 [Rx] Ondansetron [Zofran ODT] 4 mg PO Q6H PRN #20 tab.dis 04/08/18 [Rx] Past Medical History 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 History: Reports: Acute Renal Failure [employer] History: Reports: Endometriosis, Other OB/BYN History: x5 Musculoskeletal History: Reports: Arthritis, Back Pain, Chronic Neurological History: Reports: Migraines, Seizure Psychiatric History: Reports: Addiction Endocrine/Metabolic History: Reports: Diabetes, Type I Hematologic History: Reports: Blood Transfusion(s) Dermatologic History: Reports: Eczema, Psoriasis - Infectious Disease History Infectious Disease History: Reports: MRSA Other Infectious Disease History: Was in a lesion on head. Has been tested x 3 since initial diagnosis, all three are negative. - Past Surgical History GI Surgical History: Reports: Cholecystectomy, Other (See Below) Other GI Surgeries/Procedures: bowel resection Social & Family History - Family History Family Medical History: Noncontributory - Tobacco Use Smoking Status *Q: Current Every Day Smoker Years of Tobacco use: 15 Packs/Tins Daily: 1 - Caffeine Use Caffeine Use: Reports: Soda Other Caffeine Use: drinks mellow yellow daily about 3 cans - Recreational Drug Use Recreational Drug Use: No - Living Situation & Occupation Living situation: Reports: Single Occupation: Disabled ED ROS GENERAL - Review of Systems Review Of Systems: See Below Constitutional: Reports: Malaise, Weakness, Fatigue. Denies: Fever HEENT: Reports: No Symptoms Respiratory: Denies: Shortness of Breath Cardiovascular: Denies: Chest Pain Endocrine: Reports: No Symptoms GI/Abdominal: Reports: Abdominal Pain, Diarrhea, Vomiting : Reports: No Symptoms Musculoskeletal: Reports: No Symptoms Skin: Reports: Wound Neurological: Reports: No Symptoms Psychiatric: Reports: No Symptoms Hematologic/Lymphatic: Reports: No Symptoms Immunologic: Reports: No Symptoms ED EXAM GENERAL NO PERIP PULSE - Physical Exam Exam: See Below Exam Limited By: No Limitations General Appearance: Alert, WD/WN, No Apparent Distress Eye Exam: Bilateral Eye: Normal Inspection Ears: Normal External Exam Nose: Normal Inspection Throat/Mouth: Normal Inspection, Normal Voice, No Airway Compromise, Other (dry mucous membranes) Head: Atraumatic, Normocephalic Neck: Normal Inspection, Supple Respiratory/Chest: No Respiratory Distress, Lungs Clear, Normal Breath Sounds, No Accessory Muscle Use, Chest Non-Tender Cardiovascular: Normal Peripheral Pulses, Regular Rate, Rhythm, No Edema, No Murmur GI/Abdominal: Soft, No Distention, Other (mild diffuse tenderness ). No: Rebound Back Exam: Normal Inspection Extremities: Other (RLE: mid pretibial wound approx 1 cm x 1 cm with slight amount of purulence/bloody discharge) Neurological: Alert, Oriented, Normal Cognition, No Motor/Sensory Deficits Psychiatric: Normal Affect, Normal Mood Skin Exam: Warm, Dry, Intact, Normal Color Course - Vital Signs Last Recorded V/S: Last Vital Signs Temp 97.9 F 04/08/18 16:18 Pulse 97 04/08/18 16:18 Resp 20 04/08/18 16:18 BP 121/77 04/08/18 16:18 Pulse Ox 100 04/08/18 16:18 - Orders/Labs/Meds Orders: Active Orders 24 hr Category Date Time Status EKG 12 Lead [EKG Documentation Completion] [RC] STAT Care 04/08/18 16:26 Active Peripheral IV Care [RC] . DIRECTED Care 04/08/18 16:26 Active Tibia Fibula Rt [CR] Stat Exams 04/08/18 17:48 Taken CULTURE BLOOD [BC] Stat Lab 04/08/18 16:50 Received CULTURE BLOOD [BC] Stat Lab 04/08/18 17:00 Received DRUG SCREEN, URINE [URCHEM] Stat Lab 04/08/18 18:11 Ordered UA W/MICROSCOPIC [URIN] Stat Lab 04/08/18 18:11 Ordered Insulin Regular, Human [HumuLIN R] 100 unit Med 04/08/18 18:00 Active Sodium Chloride 0.9% [Normal Saline] 99 ml IV TITRATE Lactated Ringers [Ringers, Lactated] 1,000 ml Med 04/08/18 22:03 Active IV .BOLUS Morphine Med 04/08/18 16:59 Active 4 mg IVPUSH Q2H PRN Sodium Chloride 0.9% [Saline Flush] Med 04/08/18 16:26 Active 10 ml FLUSH ASDIRECTED PRN Blood Culture x2 Reflex Set [OM.PC] Stat Oth 04/08/18 16:27 Ordered Peripheral IV Insertion Adult [OM.PC] Routine Oth 04/08/18 16:26 Ordered Medication Orders Insulin Human Regular 100 unit (/ Sodium Chloride) 100 mls @ 6.12 mls/hr IV TITRATE TONIO; Protocol Last Titration: 04/08/18 19:09 Dose: 0.04 units/kg/hr, 3 mls/hr Admin: 04/08/18 18:27 Dose: 0.1 units/kg/hr, 6.12 mls/hr Lactated Ringer's (Ringers, Lactated) 1,000 mls @ 1,000 mls/hr IV .BOLUS ONE Stop: 04/08/18 23:02 Last Admin: 04/08/18 22:09 Dose: 1,000 mls/hr Morphine Sulfate (Morphine) 4 mg IVPUSH Q2H PRN PRN Reason: Pain Last Admin: 04/08/18 17:14 Dose: 4 mg Sodium Chloride (Saline Flush) 10 ml FLUSH ASDIRECTED PRN PRN Reason: Keep Vein Open Last Admin: 04/08/18 17:44 Dose: 10 ml Labs: Laboratory Tests 04/08/18 04/08/18 04/08/18 Range/Units 16:35 16:50 16:50 WBC 6.44 (3.98-10.04) K/mm3 RBC 5.20 (3.98-5.22) M/mm3 Hgb 15.7 (11.2-15.7) gm/L Hct 45.2 H (34.1-44.9) % MCV 86.9 (79.4-94.8) fl MCH 30.2 (25.6-32.2) pg MCHC 34.7 (32.2-35.5) g/dl RDW Std Deviation 39.1 (36.4-46.3) fL Plt Count 251 (182-369) K/mm3 MPV 10.3 (9.4-12.3) fl Neut % (Auto) 79.5 H (34.0-71.1) % Lymph % (Auto) 14.8 L (19.3-51.7) % [place] % (Auto) 4.7 (4.7-12.5) % Eos % (Auto) 0.5 L (0.7-5.8) Baso % (Auto) 0.5 (0.1-1.2) % Neut # (Auto) 5.13 (1.56-6.13) K/mm3 Lymph # (Auto) 0.95 L (1.18-3.74) K/mm3 [place] # (Auto) 0.30 (0.24-0.36) K/mm3 Eos # (Auto) 0.03 L (0.04-0.36) K/mm3 Baso # (Auto) 0.03 (0.01-0.08) K/mm3 Puncture Site Rt radial ABG pH 7.40 (7.35-7.45) ABG pCO2 44.1 (35.0-45.0) mmHg ABG pO2 78.0 L (80.0-100.0) mmHg ABG HCO3 26.6 H (22.0-26.0) meq/L ABG O2 Saturation 95.9 L (96.0-97.0) % ABG Base Excess 1.8 (-2-2.0) Darrell Test Positive A-a Gradient 2 mmHg O2 Delivery Device Room air FiO2 21.00 (21.00-100.00) % Sodium 127 L (136-145) mEq/L Potassium 3.7 (3.5-5.1) mEq/L Chloride 88 L (98-107) mEq/L Carbon Dioxide 27 (21-32) mEq/L Anion Gap 15.7 H (5-15) BUN 9 (7-18) mg/dL Creatinine 1.4 H (0.55-1.02) mg/dL Est Cr Clr Drug Dosing 53.50 mL/min Estimated GFR (MDRD) 43 (>60) mL/min BUN/Creatinine Ratio 6.4 L (14-18) Glucose 1486 H* (74-106) mg/dL POC Glucose (70-105) mg/dL Serum Osmolality (280-300) mosm/kg Lactic Acid (0.4-2.0) mmol/L Calcium 9.3 (8.5-10.1) mg/dL Magnesium 1.9 (1.8-2.4) mg/dl Total Bilirubin 0.6 (0.2-1.0) mg/dL AST 9 L (15-37) U/L ALT 38 (14-59) U/L Alkaline Phosphatase 112 (46-116) U/L Troponin I < 0.017 (0.00-0.056) ng/mL Total Protein 7.8 (6.4-8.2) g/dl Albumin 3.9 (3.4-5.0) g/dl Globulin 3.9 gm/dL Albumin/Globulin Ratio 1.0 (1-2) Lipase 150 (73-393) U/L Urine Color (Yellow) Urine Appearance (Clear) Urine pH (5.0-8.0) Ur Specific [place] (1.005-1.030) Urine Protein (Negative) Urine Glucose (UA) (Negative) Urine Ketones (Negative) Urine Occult Blood (Negative) Urine Nitrite (Negative) Urine Bilirubin (Negative) Urine Urobilinogen (0.2-1.0) Ur Leukocyte Esterase (Negative) Urine RBC (0-5) /hpf Urine WBC (0-5) /hpf Ur Epithelial Cells (0-5) /hpf Urine Bacteria (FEW) /hpf Hyaline Casts (0-5) /lpf Urine Mucus (FEW) /hpf Urine Opiates Screen (NEGATIVE) Ur Buprenorphine Scrn (NEGATIVE) Ur Oxycodone Screen (NEGATIVE) Urine Methadone Screen (NEGATIVE) Ur Propoxyphene Screen (NEGATIVE) Ur Barbiturates Screen (NEGATIVE) Ur Tricyclics Screen (NEGATIVE) Ur Phencyclidine Scrn (NEGATIVE) Ur Amphetamine Screen (NEGATIVE) U Methamphetamines Scrn (NEGATIVE) U Benzodiazepines Scrn (NEGATIVE) U Cocaine Metab Screen (NEGATIVE) U Marijuana (THC) Screen (NEGATIVE) Ketones (0.0-0.3) mM 04/08/18 04/08/18 04/08/18 Range/Units 16:50 16:52 18:00 WBC (3.98-10.04) K/mm3 RBC (3.98-5.22) M/mm3 Hgb (11.2-15.7) gm/L Hct (34.1-44.9) % MCV (79.4-94.8) fl MCH (25.6-32.2) pg MCHC (32.2-35.5) g/dl RDW Std Deviation (36.4-46.3) fL Plt Count (182-369) K/mm3 MPV (9.4-12.3) fl Neut % (Auto) (34.0-71.1) % Lymph % (Auto) (19.3-51.7) % [place] % (Auto) (4.7-12.5) % Eos % (Auto) (0.7-5.8) Baso % (Auto) (0.1-1.2) % Neut # (Auto) (1.56-6.13) K/mm3 Lymph # (Auto) (1.18-3.74) K/mm3 [place] # (Auto) (0.24-0.36) K/mm3 Eos # (Auto) (0.04-0.36) K/mm3 Baso # (Auto) (0.01-0.08) K/mm3 Puncture Site ABG pH (7.35-7.45) ABG pCO2 (35.0-45.0) mmHg ABG pO2 (80.0-100.0) mmHg ABG HCO3 (22.0-26.0) meq/L ABG O2 Saturation (96.0-97.0) % ABG Base Excess (-2-2.0) Darrell Test A-a Gradient mmHg O2 Delivery Device FiO2 (21.00-100.00) % Sodium 131 L (136-145) mEq/L Potassium 3.5 (3.5-5.1) mEq/L Chloride 95 L (98-107) mEq/L Carbon Dioxide 24 (21-32) mEq/L Anion Gap 15.5 H (5-15) BUN 8 (7-18) mg/dL Creatinine 1.3 H (0.55-1.02) mg/dL Est Cr Clr Drug Dosing 57.62 mL/min Estimated GFR (MDRD) 47 (>60) mL/min BUN/Creatinine Ratio 6.2 L (14-18) Glucose 994 H* (74-106) mg/dL POC Glucose (70-105) mg/dL Serum Osmolality 326 H (280-300) mosm/kg Lactic Acid 3.2 H (0.4-2.0) mmol/L Calcium 8.5 (8.5-10.1) mg/dL Magnesium (1.8-2.4) mg/dl Total Bilirubin 0.5 (0.2-1.0) mg/dL AST 5 L (15-37) U/L ALT 35 (14-59) U/L Alkaline Phosphatase 102 (46-116) U/L Troponin I (0.00-0.056) ng/mL Total Protein 6.5 (6.4-8.2) g/dl Albumin 3.5 (3.4-5.0) g/dl Globulin 3.0 gm/dL Albumin/Globulin Ratio 1.2 (1-2) Lipase (73-393) U/L Urine Color (Yellow) Urine Appearance (Clear) Urine pH (5.0-8.0) Ur Specific [place] (1.005-1.030) Urine Protein (Negative) Urine Glucose (UA) (Negative) Urine Ketones (Negative) Urine Occult Blood (Negative) Urine Nitrite (Negative) Urine Bilirubin (Negative) Urine Urobilinogen (0.2-1.0) Ur Leukocyte Esterase (Negative) Urine RBC (0-5) /hpf Urine WBC (0-5) /hpf Ur Epithelial Cells (0-5) /hpf Urine Bacteria (FEW) /hpf Hyaline Casts (0-5) /lpf Urine Mucus (FEW) /hpf Urine Opiates Screen (NEGATIVE) Ur Buprenorphine Scrn (NEGATIVE) Ur Oxycodone Screen (NEGATIVE) Urine Methadone Screen (NEGATIVE) Ur Propoxyphene Screen (NEGATIVE) Ur Barbiturates Screen (NEGATIVE) Ur Tricyclics Screen (NEGATIVE) Ur Phencyclidine Scrn (NEGATIVE) Ur Amphetamine Screen (NEGATIVE) U Methamphetamines Scrn (NEGATIVE) U Benzodiazepines Scrn (NEGATIVE) U Cocaine Metab Screen (NEGATIVE) U Marijuana (THC) Screen (NEGATIVE) Ketones 0.27 (0.0-0.3) mM 04/08/18 04/08/18 04/08/18 Range/Units 18:11 18:11 20:00 WBC (3.98-10.04) K/mm3 RBC (3.98-5.22) M/mm3 Hgb (11.2-15.7) gm/L Hct (34.1-44.9) % MCV (79.4-94.8) fl MCH (25.6-32.2) pg MCHC (32.2-35.5) g/dl RDW Std Deviation (36.4-46.3) fL Plt Count (182-369) K/mm3 MPV (9.4-12.3) fl Neut % (Auto) (34.0-71.1) % Lymph % (Auto) (19.3-51.7) % [place] % (Auto) (4.7-12.5) % Eos % (Auto) (0.7-5.8) Baso % (Auto) (0.1-1.2) % Neut # (Auto) (1.56-6.13) K/mm3 Lymph # (Auto) (1.18-3.74) K/mm3 [place] # (Auto) (0.24-0.36) K/mm3 Eos # (Auto) (0.04-0.36) K/mm3 Baso # (Auto) (0.01-0.08) K/mm3 Puncture Site ABG pH (7.35-7.45) ABG pCO2 (35.0-45.0) mmHg ABG pO2 (80.0-100.0) mmHg ABG HCO3 (22.0-26.0) meq/L ABG O2 Saturation (96.0-97.0) % ABG Base Excess (-2-2.0) Darrell Test A-a Gradient mmHg O2 Delivery Device FiO2 (21.00-100.00) % Sodium (136-145) mEq/L Potassium (3.5-5.1) mEq/L Chloride (98-107) mEq/L Carbon Dioxide (21-32) mEq/L Anion Gap (5-15) BUN (7-18) mg/dL Creatinine (0.55-1.02) mg/dL Est Cr Clr Drug Dosing mL/min Estimated GFR (MDRD) (>60) mL/min BUN/Creatinine Ratio (14-18) Glucose 650 H* (74-106) mg/dL POC Glucose (70-105) mg/dL Serum Osmolality (280-300) mosm/kg Lactic Acid (0.4-2.0) mmol/L Calcium (8.5-10.1) mg/dL Magnesium (1.8-2.4) mg/dl Total Bilirubin (0.2-1.0) mg/dL AST (15-37) U/L ALT (14-59) U/L Alkaline Phosphatase (46-116) U/L Troponin I (0.00-0.056) ng/mL Total Protein (6.4-8.2) g/dl Albumin (3.4-5.0) g/dl Globulin gm/dL Albumin/Globulin Ratio (1-2) Lipase (73-393) U/L Urine Color Light yellow (Yellow) Urine Appearance Clear (Clear) Urine pH 7.0 (5.0-8.0) Ur Specific [place] 1.015 (1.005-1.030) Urine Protein Negative (Negative) Urine Glucose (UA) 2+ H (Negative) Urine Ketones Negative (Negative) Urine Occult Blood Trace-intact H (Negative) Urine Nitrite Negative (Negative) Urine Bilirubin Negative (Negative) Urine Urobilinogen 0.2 (0.2-1.0) Ur Leukocyte Esterase Negative (Negative) Urine RBC 0-5 (0-5) /hpf Urine WBC 0-5 (0-5) /hpf Ur Epithelial Cells 0-5 (0-5) /hpf Urine Bacteria Rare (FEW) /hpf Hyaline Casts Not seen (0-5) /lpf Urine Mucus Not seen (FEW) /hpf Urine Opiates Screen Presumptive positive H (NEGATIVE) Ur Buprenorphine Scrn Negative (NEGATIVE) Ur Oxycodone Screen Negative (NEGATIVE) Urine Methadone Screen Negative (NEGATIVE) Ur Propoxyphene Screen Negative (NEGATIVE) Ur Barbiturates Screen Negative (NEGATIVE) Ur Tricyclics Screen Negative (NEGATIVE) Ur Phencyclidine Scrn Negative (NEGATIVE) Ur Amphetamine Screen Negative (NEGATIVE) U Methamphetamines Scrn Negative (NEGATIVE) U Benzodiazepines Scrn Negative (NEGATIVE) U Cocaine Metab Screen Negative (NEGATIVE) U Marijuana (THC) Screen Negative (NEGATIVE) Ketones (0.0-0.3) mM 04/08/18 Range/Units 22:33 WBC (3.98-10.04) K/mm3 RBC (3.98-5.22) M/mm3 Hgb (11.2-15.7) gm/L Hct (34.1-44.9) % MCV (79.4-94.8) fl MCH (25.6-32.2) pg MCHC (32.2-35.5) g/dl RDW Std Deviation (36.4-46.3) fL Plt Count (182-369) K/mm3 MPV (9.4-12.3) fl Neut % (Auto) (34.0-71.1) % Lymph % (Auto) (19.3-51.7) % [place] % (Auto) (4.7-12.5) % Eos % (Auto) (0.7-5.8) Baso % (Auto) (0.1-1.2) % Neut # (Auto) (1.56-6.13) K/mm3 Lymph # (Auto) (1.18-3.74) K/mm3 [place] # (Auto) (0.24-0.36) K/mm3 Eos # (Auto) (0.04-0.36) K/mm3 Baso # (Auto) (0.01-0.08) K/mm3 Puncture Site ABG pH (7.35-7.45) ABG pCO2 (35.0-45.0) mmHg ABG pO2 (80.0-100.0) mmHg ABG HCO3 (22.0-26.0) meq/L ABG O2 Saturation (96.0-97.0) % ABG Base Excess (-2-2.0) Darrell Test A-a Gradient mmHg O2 Delivery Device FiO2 (21.00-100.00) % Sodium (136-145) mEq/L Potassium (3.5-5.1) mEq/L Chloride (98-107) mEq/L Carbon Dioxide (21-32) mEq/L Anion Gap (5-15) BUN (7-18) mg/dL Creatinine (0.55-1.02) mg/dL Est Cr Clr Drug Dosing mL/min Estimated GFR (MDRD) (>60) mL/min BUN/Creatinine Ratio (14-18) Glucose (74-106) mg/dL POC Glucose 217 H (70-105) mg/dL Serum Osmolality (280-300) mosm/kg Lactic Acid (0.4-2.0) mmol/L Calcium (8.5-10.1) mg/dL Magnesium (1.8-2.4) mg/dl Total Bilirubin (0.2-1.0) mg/dL AST (15-37) U/L ALT (14-59) U/L Alkaline Phosphatase (46-116) U/L Troponin I (0.00-0.056) ng/mL Total Protein (6.4-8.2) g/dl Albumin (3.4-5.0) g/dl Globulin gm/dL Albumin/Globulin Ratio (1-2) Lipase (73-393) U/L Urine Color (Yellow) Urine Appearance (Clear) Urine pH (5.0-8.0) Ur Specific [place] (1.005-1.030) Urine Protein (Negative) Urine Glucose (UA) (Negative) Urine Ketones (Negative) Urine Occult Blood (Negative) Urine Nitrite (Negative) Urine Bilirubin (Negative) Urine Urobilinogen (0.2-1.0) Ur Leukocyte Esterase (Negative) Urine RBC (0-5) /hpf Urine WBC (0-5) /hpf Ur Epithelial Cells (0-5) /hpf Urine Bacteria (FEW) /hpf Hyaline Casts (0-5) /lpf Urine Mucus (FEW) /hpf Urine Opiates Screen (NEGATIVE) Ur Buprenorphine Scrn (NEGATIVE) Ur Oxycodone Screen (NEGATIVE) Urine Methadone Screen (NEGATIVE) Ur Propoxyphene Screen (NEGATIVE) Ur Barbiturates Screen (NEGATIVE) Ur Tricyclics Screen (NEGATIVE) Ur Phencyclidine Scrn (NEGATIVE) Ur Amphetamine Screen (NEGATIVE) U Methamphetamines Scrn (NEGATIVE) U Benzodiazepines Scrn (NEGATIVE) U Cocaine Metab Screen (NEGATIVE) U Marijuana (THC) Screen (NEGATIVE) Ketones (0.0-0.3) mM Meds: Medications Generic Name Dose Route Start Last Admin Trade Name Freq PRN Reason Stop Dose Admin Insulin Human Regular 100 unit 100 mls @ 6.12 mls/hr 04/08/18 18:00 04/08/18 19:09 / Sodium Chloride IV 0.04 units/kg/hr TITRATE TONIO 3 mls/hr Titration Protocol 0.1 UNITS/KG/HR Lactated Ringer's 1,000 mls @ 1,000 mls/hr 04/08/18 22:03 04/08/18 22:09 Ringers, Lactated IV 04/08/18 23:02 1,000 mls/hr .BOLUS ONE Administration Morphine Sulfate 4 mg 04/08/18 16:59 04/08/18 17:14 Morphine IVPUSH 4 mg Q2H PRN Administration Pain Sodium Chloride 10 ml 04/08/18 16:26 04/08/18 17:44 Saline Flush FLUSH 10 ml ASDIRECTED PRN Administration Keep Vein Open Discontinued Medications Generic Name Dose Route Start Last Admin Trade Name Freq PRN Reason Stop Dose Admin Sodium Chloride 1,000 mls @ 1,000 mls/hr 04/08/18 16:26 04/08/18 17:01 Normal Saline IV 04/08/18 17:25 1,000 mls/hr ONETIME ONE Administration Sodium Chloride 1,000 mls @ 1,000 mls/hr 04/08/18 16:59 04/08/18 17:43 Normal Saline IV 04/08/18 17:58 1,000 mls/hr ONETIME ONE Administration Lactated Ringer's 1,000 mls @ 1,000 mls/hr 04/08/18 20:54 04/08/18 21:01 Ringers, Lactated IV 04/08/18 21:53 1,000 mls/hr .BOLUS ONE Administration Metoclopramide HCl 10 mg 04/08/18 16:59 04/08/18 17:10 Reglan IVPUSH 04/08/18 17:00 10 mg ONETIME ONE Administration Metoclopramide HCl 10 mg 04/08/18 21:07 04/08/18 21:13 Reglan IVPUSH 04/08/18 21:08 10 mg ONETIME ONE Administration Morphine Sulfate 4 mg 04/08/18 21:06 04/08/18 21:14 Morphine IVPUSH 04/08/18 21:07 4 mg ONETIME ONE Administration Ondansetron HCl 4 mg 04/08/18 16:59 04/08/18 17:10 Zofran IVPUSH 04/08/18 17:00 4 mg ONETIME ONE Administration - Re-Assessments/Exams Free Text/Narrative Re-Assessment/Exam: 04/08/18 18:04 EKG shows normal sinus rhythm, normal intervals, minimal ST depression of the inferior leads, no significant ST elevation. Labs are significant for a normal white blood cell count, abnormal metabolic panel with markedly elevated glucose at 1400. Anion gap is 16 and bicarbonate is 27. Arterial pH of 7.4. Patient does not appear to be in DKA currently given all of the above. Serum osmolality is pending. Patient started on an insulin drip and also given 2 L of normal saline to start, she will likely require significantly more fluid. Discussed with Dr. Gomez who agrees to admit her to the intensive care unit. Departure - Departure Time of Disposition: 18:06 Disposition: Admitted As Inpatient 65 Clinical Impression: Hyperglycemia due to type 1 diabetes mellitus, Dehydration, moderate Vomiting Qualifiers: Vomiting type: unspecified Vomiting Intractability: non-intractable Nausea presence: with nausea Qualified Code(s): R11.2 - Nausea with vomiting, unspecified Diarrhea Qualifiers: Diarrhea type: unspecified type Qualified Code(s): R19.7 - Diarrhea, unspecified - Discharge Information Prescriptions: Ondansetron [Zofran ODT] 4 mg PO Q6H PRN #20 tab.dis PRN Reason: Nausea\vomiting Referrals: Bull Ashton [Primary Care Provider] - 2 Days Forms: ED Department Discharge Additional Instructions: Continue with your medications at home. Drink plenty of fluids. Take zofran as needed for nausea and vomiting. Please return if you are worse. - My Orders Last 24 Hours: My Active Orders 04/08/18 22:03 Lactated Ringers [Ringers, Lactated] 1,000 ml IV .BOLUS - Assessment/Plan Last 24 Hours: My Active Orders 04/08/18 22:03 Lactated Ringers [Ringers, Lactated] 1,000 ml IV .BOLUS <Avelino Boss - Last Filed: 04/08/18 23:01> Course - Re-Assessments/Exams Free Text/Narrative Re-Assessment/Exam: 04/08/18 22:[address] Beach. I talked with Dr Gomez and the patient's blood sugar was still 994. She requested we continue with the fluids and try to discharge her from here. I will attempt to do that. The patient is not in DKA. Her blood sugar dropped to 650. She then went down to 217. The insulin was stopped. I will get her ready to go soon.
[2018-04-08] MEDS ORDERED: Lactated Ringers 1,000 ML IV ONE ×2 (20:54→22:03)
[2018-04-08] MEDS ORDERED: Morphine 4 MG/ML Syringe IVPUSH ONE (21:06)
--- NOTE | 2018-04-09 10:20 | CR ---
Right tibia and fibula: Two views of the right tibia and fibula were obtained. Comparison: No previous study. No fracture or other bony abnormality is seen. Impression: 1. No abnormality is identified on two-view right tibia and fibula study. Diagnostic code #1
== END 2018-04-08 23:10 | disposition home or self-care (01) ==
LOC: JD.ED 16:12
DX: E10.65 Type 1 diabetes mellitus with hyperglycemia (principal); R11.2 Nausea with vomiting, unspecified; R19.7 Diarrhea, unspecified; F17.210 Nicotine dependence, cigarettes, uncomplicated; Z91.040 Latex allergy status; Z88.5 Allergy status to narcotic agent
CPT/HCPCS: 36415; 36600; 73590; 80053; 80306; 81001; 82009; 82803; 82947; 82962; 83605; 83690; 83735; 83930; 84484; 85025; 87040; 93005; 96361; 96365; 96366; 96375; 96376; 99285; J1815; J2270; J2405; J2765; J7030; J7040; J7050; J7120

== ENCOUNTER 2018-12-18 02:32 | Observation (INO) | payer MEDICAID ==
[2018-12-18] MEDS ORDERED: Dextrose 5%-0.9% NaCl 1,000 ML IV SCH ×3 (03:00→08:45)
--- NOTE | 2018-12-18 03:03 | EDM.PDOC ---
ED HPI GENERAL MEDICAL PROBLEM - General Chief Complaint: Diabetic Complaint Stated Complaint: [facility] Time Seen by Provider: 12/18/18 02:40 Source of Information: Reports: Patient, EMS, RN Notes Reviewed History Limitations: Reports: Altered Mental Status - History of Present Illness INITIAL COMMENTS - FREE TEXT/NARRATIVE: According to EMS, with whom I spoke, the patient's brother called them because the patient may have been having some seizure-like activity. When they arrived, the patient was unresponsive, although it was not clear that she was seizing. An Accu-Chek was read as "low". They were unable to place an IV, therefore they gave glucagon 1 mg IM. A subsequent Accu-Chek en route to the ED was 24, then another Accu-Chek shortly before arrival to the ED was 51. Accu-Chek upon arrival to the ED was 81. The patient is somewhat confused, but is able to answer most of my questions. She denies recent illness. She is complaining of generalized body pain. The patient states that she has a history of methamphetamine use, last smoking in around May 2018, but she denies a history of opioid or heroin abuse. The paramedics brought, however, an empty pill bottle of Suboxone, prescribed to the patient 09/08/2018. The patient does not recall who her PCP is. Headache Pain Score (Numeric/FACES): 8 - Related Data Allergies Allergy/AdvReac Type Severity Reaction Status Date / Time latex Allergy Hives Verified 12/18/18 02:36 tramadol Allergy Hives Verified 12/18/18 02:36 Home Meds: Home Meds Insulin Aspart [Novolog Flexpen] 9 units SUBCNJ TIDMEALS 01/05/18 [History] Insulin Glarg,Human.Rec.Analog [Lantus Solostar] 20 unit SUBCUT QAM 01/05/18 [ History] Ondansetron [Zofran ODT] 4 mg PO Q6H PRN #15 tab.dis 01/16/18 [Rx] Ondansetron [Zofran ODT] 4 mg PO Q6H PRN #20 tab.dis 04/08/18 [Rx] Past Medical History 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 History: Reports: Acute Renal Failure 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: Endometriosis, (x 5) Musculoskeletal History: Reports: Arthritis, Back Pain, Chronic Neurological History: Reports: Migraines, Seizure (2 hypoglycemia) Psychiatric History: Reports: Addiction (methamphetamine, Dilaudid) Endocrine/Metabolic History: Reports: Diabetes, Type I Hematologic History: Reports: Blood Transfusion(s) Dermatologic History: Reports: Eczema, Psoriasis - Infectious Disease History Infectious Disease History: Reports: MRSA - Past Surgical History GI Surgical History: Reports: Cholecystectomy (2014?), Other (See Below) (Small bowel resection) Female Surgical History: Reports: D&C (x 1) Social & Family History - Family History Family Medical History: Noncontributory - Tobacco Use Smoking Status *Q: Current Every Day Smoker Years of Tobacco use: 18 Packs/Tins Daily: 1 - Caffeine Use Caffeine Use: Reports: Soda Other Caffeine Use: drinks mellow yellow daily about 3 cans - Alcohol Use Alcohol Use History: No - Recreational Drug Use Recreational Drug Use: Yes Drug Use in Last 12 Months: Yes Recreational Drug Type: Reports: Dilaudid (last injected and ate late March 2018) , Marijuana/Hashish (last smoked May 2018), Methamphetamine (last smoked May 2018) - Living Situation & Occupation Living situation: Reports: Single, with Family Occupation: Unemployed ED ROS GENERAL - Review of Systems Review Of Systems: ROS reveals no pertinent complaints other than HPI. ED EXAM GENERAL NO PERIP PULSE - Physical Exam Exam: See Below Exam Limited By: No Limitations General Appearance: WD/WN, No Apparent Distress, Other (Somnolent, but arousable ) Eye Exam: Bilateral Eye: EOMI, Normal Inspection Ears: Normal External Exam, Hearing Grossly Normal Nose: Normal Inspection Throat/Mouth: Normal Inspection, Normal Lips, Normal Voice, No Airway Compromise Head: Atraumatic, Normocephalic Neck: Normal Inspection, Full Range of Motion Respiratory/Chest: No Respiratory Distress, Lungs Clear, Normal Breath Sounds, No Accessory Muscle Use Cardiovascular: Normal Peripheral Pulses, Regular Rate, Rhythm, No Edema, No Gallop, No JVD, No Murmur, No Rub GI/Abdominal: Normal Bowel Sounds, Soft, No Organomegaly, No Distention, No Abnormal Bruit, No Mass, Tender (Mild, generalized, non-focal) (Female) Exam: Deferred Rectal (Female) Exam: Deferred Extremities: Normal Inspection, Normal Range of Motion, No Pedal Edema, Normal Capillary Refill Neurological: No Motor/Sensory Deficits, Inattentive, Confused, Slow to Respond Skin Exam: Warm, Dry (but damp clothes from earlier diaphoresis), Intact, Normal Color, No Rash EKG INTERPRETATION EKG Date: 12/18/18 Time: 03:11 Rhythm: NSR Rate (Beats/Min): 97 [place]: Normal P-Wave: Present (cannot rule out atrial enlargement, 2 motion artifact) QRS: Normal (Borderline early transition) ST-T: Normal QT: Prolonged (QTc 482 ms) Comparison: No Change (04/08/2018) Course - Vital Signs Last Recorded V/S: Last Vital Signs Temp 35.5 C 12/18/18 02:36 Pulse 102 H 12/18/18 02:36 Resp 20 12/18/18 02:36 BP 133/99 H 12/18/18 02:36 Pulse Ox 98 12/18/18 02:36 - Orders/Labs/Meds Orders: Active Orders 24 hr Category Date Time Status Patient Status [ADT] Routine ADT 12/18/18 05:32 Active Accu Check [Blood Glucose Check, Bedside] [RC] ONETIME Care 12/18/18 04:20 Active EKG Documentation Completion [RC] STAT Care 12/18/18 02:55 Active Chest 1V Frontal [CR] Stat Exams 12/18/18 02:54 Taken CULTURE BLOOD [BC] Stat Lab 12/18/18 04:30 Received CULTURE BLOOD [BC] Stat Lab 12/18/18 04:45 Received CULTURE URINE [RM] Stat Lab 12/18/18 05:02 Ordered LACTIC ACID [CHEM] Timed Lab 12/18/18 09:00 Ordered Dextrose 5%-0.9% NaCl [Dextrose 5%-Normal Saline] 1,000 Med 12/18/18 04:30 Active ml IV ASDIRECTED Blood Culture x2 Reflex Set [OM.PC] Stat Oth 12/18/18 04:20 Ordered Medication Orders Dextrose/Sodium Chloride (Dextrose 5%-Normal Saline) 1,000 mls @ 50 mls/hr IV ASDIRECTED TONIO Labs: Laboratory Tests 12/18/18 12/18/18 12/18/18 Range/Units 02:36 02:40 02:40 WBC 7.28 (3.98-10.04) K/mm3 RBC 4.57 (3.98-5.22) M/mm3 Hgb 13.4 (11.2-15.7) gm/L Hct 40.0 (34.1-44.9) % MCV 87.5 (79.4-94.8) fl MCH 29.3 (25.6-32.2) pg MCHC 33.5 (32.2-35.5) g/dl RDW Std Deviation 38.0 (36.4-46.3) fL Plt Count 286 (182-369) K/mm3 MPV 9.5 (9.4-12.3) fl Neutrophils % (Manual) 30 L (40-60) % Band Neutrophils % 0 (0-10) % Lymphocytes % (Manual) 59 H (20-40) % Atypical Lymphs % 0 % Monocytes % (Manual) 7 (2-10) % Eosinophils % (Manual) 4 (0.7-5.8) % Basophils % (Manual) 0 L (0.1-1.2) Platelet Estimate Adequate RBC Morph Comment Normal Puncture Site ABG pH (7.35-7.45) ABG pCO2 (35.0-45.0) mmHg ABG pO2 (80.0-100.0) mmHg ABG HCO3 (22.0-26.0) meq/L ABG O2 Saturation (96.0-97.0) % ABG Base Excess (-2-2.0) Darrell Test Sodium 145 (136-145) mEq/L Potassium 3.2 L (3.5-5.1) mEq/L Chloride 106 (98-107) mEq/L Carbon Dioxide 22 (21-32) mEq/L Anion Gap 20.2 H (5-15) BUN 17 (7-18) mg/dL Creatinine 0.9 (0.55-1.02) mg/dL Est Cr Clr Drug Dosing TNP Estimated GFR (MDRD) > 60 (>60) mL/min BUN/Creatinine Ratio 18.9 H (14-18) Glucose 84 (74-106) mg/dL POC Glucose 81 (70-105) mg/dL Lactic Acid (0.4-2.0) mmol/L Calcium 9.3 (8.5-10.1) mg/dL Magnesium 1.6 L (1.8-2.4) mg/dl Total Bilirubin 0.2 (0.2-1.0) mg/dL AST 48 H (15-37) U/L ALT 69 H (14-59) U/L Alkaline Phosphatase 143 H (46-116) U/L Total Protein 6.8 (6.4-8.2) g/dl Albumin 3.7 (3.4-5.0) g/dl Globulin 3.1 gm/dL Albumin/Globulin Ratio 1.2 (1-2) Lipase 33 L (73-393) U/L TSH 3rd Generation 3.807 H (0.358-3.74) uIU/mL Urine Color (Yellow) Urine Appearance (Clear) Urine pH (5.0-8.0) Ur Specific [place] (1.005-1.030) Urine Protein (Negative) Urine Glucose (UA) (Negative) Urine Ketones (Negative) Urine Occult Blood (Negative) Urine Nitrite (Negative) Urine Bilirubin (Negative) Urine Urobilinogen (0.2-1.0) Ur Leukocyte Esterase (Negative) Urine RBC (0-5) /hpf Urine WBC (0-5) /hpf Ur Epithelial Cells (0-5) /hpf Urine Bacteria (FEW) /hpf Urine Mucus (FEW) /hpf Urine Yeast (Budding) (NOT SEEN) Urine HCG, Qual (NEGATIVE) Urine Opiates Screen (KYBAEB=525) Ur Buprenorphine Scrn (CUTOFF=10) Ur Oxycodone Screen (CIT0QZ=994) Urine Methadone Screen (ZZTMSF=051) Ur Propoxyphene Screen (SGAEDY=207) Ur Barbiturates Screen (YIECFE=277) Ur Tricyclics Screen (DLXRMU=418) Ur Phencyclidine Scrn (CUTOFF=25) Ur Amphetamine Screen (TQDXMB=115) U Methamphetamines Scrn (SUJWXL=798) U Benzodiazepines Scrn (UWXHNT=113) U Cocaine Metab Screen (CWOPQA=651) U Marijuana (THC) Screen (CUTOFF=50) Ethyl Alcohol 0.00 (0.00) gm% Ketones (0.0-0.3) mM 12/18/18 12/18/18 12/18/18 Range/Units 02:40 03:10 03:20 WBC (3.98-10.04) K/mm3 RBC (3.98-5.22) M/mm3 Hgb (11.2-15.7) gm/L Hct (34.1-44.9) % MCV (79.4-94.8) fl MCH (25.6-32.2) pg MCHC (32.2-35.5) g/dl RDW Std Deviation (36.4-46.3) fL Plt Count (182-369) K/mm3 MPV (9.4-12.3) fl Neutrophils % (Manual) (40-60) % Band Neutrophils % (0-10) % Lymphocytes % (Manual) (20-40) % Atypical Lymphs % % Monocytes % (Manual) (2-10) % Eosinophils % (Manual) (0.7-5.8) % Basophils % (Manual) (0.1-1.2) Platelet Estimate RBC Morph Comment Puncture Site Rt radial ABG pH 7.34 L (7.35-7.45) ABG pCO2 48.4 H (35.0-45.0) mmHg ABG pO2 95.0 (80.0-100.0) mmHg ABG HCO3 25.7 (22.0-26.0) meq/L ABG O2 Saturation 96.9 (96.0-97.0) % ABG Base Excess 0.1 (-2-2.0) Darrell Test Positive Sodium (136-145) mEq/L Potassium (3.5-5.1) mEq/L Chloride (98-107) mEq/L Carbon Dioxide (21-32) mEq/L Anion Gap (5-15) BUN (7-18) mg/dL Creatinine (0.55-1.02) mg/dL Est Cr Clr Drug Dosing Estimated GFR (MDRD) (>60) mL/min BUN/Creatinine Ratio (14-18) Glucose (74-106) mg/dL POC Glucose (70-105) mg/dL Lactic Acid 4.9 H (0.4-2.0) mmol/L Calcium (8.5-10.1) mg/dL Magnesium (1.8-2.4) mg/dl Total Bilirubin (0.2-1.0) mg/dL AST (15-37) U/L ALT (14-59) U/L Alkaline Phosphatase (46-116) U/L Total Protein (6.4-8.2) g/dl Albumin (3.4-5.0) g/dl Globulin gm/dL Albumin/Globulin Ratio (1-2) Lipase (73-393) U/L TSH 3rd Generation (0.358-3.74) uIU/mL Urine Color (Yellow) Urine Appearance (Clear) Urine pH (5.0-8.0) Ur Specific [place] (1.005-1.030) Urine Protein (Negative) Urine Glucose (UA) (Negative) Urine Ketones (Negative) Urine Occult Blood (Negative) Urine Nitrite (Negative) Urine Bilirubin (Negative) Urine Urobilinogen (0.2-1.0) Ur Leukocyte Esterase (Negative) Urine RBC (0-5) /hpf Urine WBC (0-5) /hpf Ur Epithelial Cells (0-5) /hpf Urine Bacteria (FEW) /hpf Urine Mucus (FEW) /hpf Urine Yeast (Budding) (NOT SEEN) Urine HCG, Qual (NEGATIVE) Urine Opiates Screen (GZVDYY=816) Ur Buprenorphine Scrn (CUTOFF=10) Ur Oxycodone Screen (ENY1JH=022) Urine Methadone Screen (FPELTX=063) Ur Propoxyphene Screen (BBTOXO=324) Ur Barbiturates Screen (UKPORJ=394) Ur Tricyclics Screen (MCESEA=977) Ur Phencyclidine Scrn (CUTOFF=25) Ur Amphetamine Screen (LLLTMY=081) U Methamphetamines Scrn (FIUEHP=578) U Benzodiazepines Scrn (GAFDNX=496) U Cocaine Metab Screen (BKULSJ=508) U Marijuana (THC) Screen (CUTOFF=50) Ethyl Alcohol (0.00) gm% Ketones 0.12 (0.0-0.3) mM 12/18/18 12/18/18 12/18/18 Range/Units 04:00 04:00 04:00 WBC (3.98-10.04) K/mm3 RBC (3.98-5.22) M/mm3 Hgb (11.2-15.7) gm/L Hct (34.1-44.9) % MCV (79.4-94.8) fl MCH (25.6-32.2) pg MCHC (32.2-35.5) g/dl RDW Std Deviation (36.4-46.3) fL Plt Count (182-369) K/mm3 MPV (9.4-12.3) fl Neutrophils % (Manual) (40-60) % Band Neutrophils % (0-10) % Lymphocytes % (Manual) (20-40) % Atypical Lymphs % % Monocytes % (Manual) (2-10) % Eosinophils % (Manual) (0.7-5.8) % Basophils % (Manual) (0.1-1.2) Platelet Estimate RBC Morph Comment Puncture Site ABG pH (7.35-7.45) ABG pCO2 (35.0-45.0) mmHg ABG pO2 (80.0-100.0) mmHg ABG HCO3 (22.0-26.0) meq/L ABG O2 Saturation (96.0-97.0) % ABG Base Excess (-2-2.0) Darrell Test Sodium (136-145) mEq/L Potassium (3.5-5.1) mEq/L Chloride (98-107) mEq/L Carbon Dioxide (21-32) mEq/L Anion Gap (5-15) BUN (7-18) mg/dL Creatinine (0.55-1.02) mg/dL Est Cr Clr Drug Dosing Estimated GFR (MDRD) (>60) mL/min BUN/Creatinine Ratio (14-18) Glucose (74-106) mg/dL POC Glucose (70-105) mg/dL Lactic Acid (0.4-2.0) mmol/L Calcium (8.5-10.1) mg/dL Magnesium (1.8-2.4) mg/dl Total Bilirubin (0.2-1.0) mg/dL AST (15-37) U/L ALT (14-59) U/L Alkaline Phosphatase (46-116) U/L Total Protein (6.4-8.2) g/dl Albumin (3.4-5.0) g/dl Globulin gm/dL Albumin/Globulin Ratio (1-2) Lipase (73-393) U/L TSH 3rd Generation (0.358-3.74) uIU/mL Urine Color Yellow (Yellow) Urine Appearance Slt cloudy H (Clear) Urine pH 6.5 (5.0-8.0) Ur Specific [place] 1.025 (1.005-1.030) Urine Protein Trace H (Negative) Urine Glucose (UA) 2+ H (Negative) Urine Ketones Negative (Negative) Urine Occult Blood Trace-intact H (Negative) Urine Nitrite Negative (Negative) Urine Bilirubin Negative (Negative) Urine Urobilinogen 0.2 (0.2-1.0) Ur Leukocyte Esterase Negative (Negative) Urine RBC 10-20 H (0-5) /hpf Urine WBC 10-20 H (0-5) /hpf Ur Epithelial Cells 5-10 H (0-5) /hpf Urine Bacteria Moderate H (FEW) /hpf Urine Mucus Few (FEW) /hpf Urine Yeast (Budding) Few H (NOT SEEN) Urine HCG, Qual Negative (NEGATIVE) Urine Opiates Screen Negative (YTBYBE=776) Ur Buprenorphine Scrn Presumptive positive (CUTOFF=10) Ur Oxycodone Screen Negative (POK7ZX=185) Urine Methadone Screen Negative (BONOFP=021) Ur Propoxyphene Screen Negative (WJIFCM=106) Ur Barbiturates Screen Negative (NZOITI=163) Ur Tricyclics Screen Negative (UGNXKE=358) Ur Phencyclidine Scrn Negative (CUTOFF=25) Ur Amphetamine Screen Negative (DNCSPJ=330) U Methamphetamines Scrn Negative (RINLOO=367) U Benzodiazepines Scrn Negative (FWTHXT=446) U Cocaine Metab Screen Negative (RPDJUW=940) U Marijuana (THC) Screen Presumptive positive H (CUTOFF=50) Ethyl Alcohol (0.00) gm% Ketones (0.0-0.3) mM 12/18/18 Range/Units 04:23 WBC (3.98-10.04) K/mm3 RBC (3.98-5.22) M/mm3 Hgb (11.2-15.7) gm/L Hct (34.1-44.9) % MCV (79.4-94.8) fl MCH (25.6-32.2) pg MCHC (32.2-35.5) g/dl RDW Std Deviation (36.4-46.3) fL Plt Count (182-369) K/mm3 MPV (9.4-12.3) fl Neutrophils % (Manual) (40-60) % Band Neutrophils % (0-10) % Lymphocytes % (Manual) (20-40) % Atypical Lymphs % % Monocytes % (Manual) (2-10) % Eosinophils % (Manual) (0.7-5.8) % Basophils % (Manual) (0.1-1.2) Platelet Estimate RBC Morph Comment Puncture Site ABG pH (7.35-7.45) ABG pCO2 (35.0-45.0) mmHg ABG pO2 (80.0-100.0) mmHg ABG HCO3 (22.0-26.0) meq/L ABG O2 Saturation (96.0-97.0) % ABG Base Excess (-2-2.0) Darrell Test Sodium (136-145) mEq/L Potassium (3.5-5.1) mEq/L Chloride (98-107) mEq/L Carbon Dioxide (21-32) mEq/L Anion Gap (5-15) BUN (7-18) mg/dL Creatinine (0.55-1.02) mg/dL Est Cr Clr Drug Dosing Estimated GFR (MDRD) (>60) mL/min BUN/Creatinine Ratio (14-18) Glucose (74-106) mg/dL POC Glucose 221 H (70-105) mg/dL Lactic Acid (0.4-2.0) mmol/L Calcium (8.5-10.1) mg/dL Magnesium (1.8-2.4) mg/dl Total Bilirubin (0.2-1.0) mg/dL AST (15-37) U/L ALT (14-59) U/L Alkaline Phosphatase (46-116) U/L Total Protein (6.4-8.2) g/dl Albumin (3.4-5.0) g/dl Globulin gm/dL Albumin/Globulin Ratio (1-2) Lipase (73-393) U/L TSH 3rd Generation (0.358-3.74) uIU/mL Urine Color (Yellow) Urine Appearance (Clear) Urine pH (5.0-8.0) Ur Specific [place] (1.005-1.030) Urine Protein (Negative) Urine Glucose (UA) (Negative) Urine Ketones (Negative) Urine Occult Blood (Negative) Urine Nitrite (Negative) Urine Bilirubin (Negative) Urine Urobilinogen (0.2-1.0) Ur Leukocyte Esterase (Negative) Urine RBC (0-5) /hpf Urine WBC (0-5) /hpf Ur Epithelial Cells (0-5) /hpf Urine Bacteria (FEW) /hpf Urine Mucus (FEW) /hpf Urine Yeast (Budding) (NOT SEEN) Urine HCG, Qual (NEGATIVE) Urine Opiates Screen (NTJNGO=710) Ur Buprenorphine Scrn (CUTOFF=10) Ur Oxycodone Screen (MGD8VS=342) Urine Methadone Screen (FLZYEI=160) Ur Propoxyphene Screen (WKQLNE=737) Ur Barbiturates Screen (SHMMJL=706) Ur Tricyclics Screen (JUYLWO=832) Ur Phencyclidine Scrn (CUTOFF=25) Ur Amphetamine Screen (NSXVIB=148) U Methamphetamines Scrn (TJRHJT=304) U Benzodiazepines Scrn (ADPODP=945) U Cocaine Metab Screen (NSYNAV=949) U Marijuana (THC) Screen (CUTOFF=50) Ethyl Alcohol (0.00) gm% Ketones (0.0-0.3) mM Meds: Medications Generic Name Dose Route Start Last Admin Trade Name Freq PRN Reason Stop Dose Admin Dextrose/Sodium Chloride 1,000 mls @ 50 mls/hr 12/18/18 04:30 Dextrose 5%-Normal Saline IV ASDIRECTED TONIO Discontinued Medications Generic Name Dose Route Start Last Admin Trade Name Freq PRN Reason Stop Dose Admin Acetaminophen 650 mg 12/18/18 05:30 Tylenol PO 12/18/18 05:31 NOW ONE Dextrose/Sodium Chloride 1,000 mls @ 125 mls/hr 12/18/18 03:00 12/18/18 04:26 Dextrose 5%-Normal Saline IV 50 mls/hr ASDIRECTED TONIO Infusion Magnesium Sulfate 2 gm/ Premix 50 mls @ 50 mls/hr 12/18/18 03:32 12/18/18 03: 59 IV 12/18/18 04:31 50 mls/hr ONETIME ONE Administration Ibuprofen 600 mg 12/18/18 03:25 12/18/18 03:31 Motrin PO 12/18/18 03:26 600 mg ONETIME ONE Administration Potassium Chloride 40 meq 12/18/18 03:40 12/18/18 03:59 Klor-Con M20 PO 12/18/18 03:41 40 meq ONETIME ONE Administration - Re-Assessments/Exams Free Text/Narrative Re-Assessment/Exam: 12/18/18 03:35 IV fluid of D5NS at 125 ml/hr was ordered shortly after the patient arrived to the ED. The patient was asking for something for body aches earlier. I ordered 600 mg oral ibuprofen. Portable chest radiograph appears to be grossly normal. The cardiac silhouette is within normal limits. No pulmonary vascular congestion. No pleural effusions. No focal infiltrate. No pneumothorax. Formal read per the Radiologist pending. The patient's ABG demonstrates a mild respiratory acidosis with normal oxygenation. The patient's potassium is mildly depressed at 3.2, possibly due to mild hypomagnesemia of 1.6. I have ordered a magnesium rider, and will order 40 mEq oral potassium replacement. The patient's TSH is incidentally noted to be elevated at 3.807, consistent with mild hypothyroidism. 12/18/18 04:21 The patient's lactic acid, obtained at 03:10, has just returned elevated at 4.9. This is almost certainly due to her seizure activity and hypoglycemia itself (Type B lactic acidosis), as provided by her history. While the patient remains hemodynamically stable, with no suggestion of sepsis (Type A lactic acidosis), I have ordered 2 sets of blood cultures to be obtained now, and a second lactic acid level to be drawn at 09:00. 12/18/18 04:26 The patient's Accu-Chek at 04:23 is 221. I asked Rina RN to decrease the patient' s D5NS to 50 mL/hr. 12/18/18 05:03 The patient refused to be quick catheterized and voided in the bathroom. Her urinalysis appears to be contaminated. I have ordered a urine culture, but I do not see an indication for starting empiric antibiotics at this time, given that the patient denies urinary symptoms. The patient's urine drug screen is positive for buprenorphine and marijuana. 12/18/18 05:16 Test results discussed with the patient. Because of the patient's elevated lactic acid level, with a redraw scheduled for 09:00, I feel it would be best if the patient were placed into observation, where her D5NS could be withdrawn as she has breakfast, and, provided her repeat lactic acid level is declining, she could be discharged home after lunch. The patient is agreeable. Now that the patient is more lucid, I asked her about her Suboxone. The patient acknowledged that she has a history of opioid abuse, specifically, oral and injectable Dilaudid (I have amended her past social history to reflect this). She acknowledges that these were illegally obtained. She states that she is prescribed the Suboxone, 2 weeks at a time, from [facility], a Suboxone clinic here in [place] that she joined in late March/early May 2018. She acknowledges that [facility] checks her urine before they re-prescribe the Suboxone, and that if it is positive for opioids, she runs the risk of being discharged from their program. Nevertheless, the patient has asked the nurses repeatedly for pain medication during this ED visit. She was given ibuprofen earlier, but is telling me that it didn't do anything, and is asking for something stronger. I see no indication for an opioid - she is not injured, and is primarily complaining of only a headache. Current guidelines recommend opioids only for headaches due to an intracranial hemorrhage, not tension or other type of headaches. I explained to the patient that for her own benefit, I am not going to order an opioid. I will order some Tylenol. 12/18/18 05:[address] Rolle at 05:16. He agreed to place the patient into observation. He asked that I write some bridge orders. Departure - Departure Time of Disposition: 05:19 Disposition: Refer to Observation Condition: Fair Clinical Impression: Hypoglycemic insulin reaction in type 1 diabetes mellitus, Elevated lactic acid level, Hypokalemia, Hypomagnesemia, Elevated TSH, Opioid dependence - Discharge Information *PRESCRIPTION DRUG MONITORING PROGRAM REVIEWED*: Not Applicable *COPY OF PRESCRIPTION DRUG MONITORING REPORT IN PATIENT TANNER: Not Applicable Referrals: Fanta Canseco PA-C [Primary Care Provider] - - My Orders Last 24 Hours: My Active Orders 12/18/18 02:54 Chest 1V Frontal [CR] Stat 12/18/18 02:55 EKG Documentation Completion [RC] STAT 12/18/18 04:20 Accu Check [Blood Glucose Check, Bedside] [RC] ONETIME Blood Culture x2 Reflex Set [OM.PC] Stat 12/18/18 04:30 CULTURE BLOOD [BC] Stat Dextrose 5%-0.9% NaCl [Dextrose 5%-Normal Saline] 1,000 ml IV ASDIRECTED 12/18/18 04:45 CULTURE BLOOD [BC] Stat 12/18/18 05:02 CULTURE URINE [RM] Stat 12/18/18 05:32 Patient Status [ADT] Routine 12/18/18 09:00 LACTIC ACID [CHEM] Timed - Assessment/Plan Last 24 Hours: My Active Orders 12/18/18 02:54 Chest 1V Frontal [CR] Stat 12/18/18 02:55 EKG Documentation Completion [RC] STAT 12/18/18 04:20 Accu Check [Blood Glucose Check, Bedside] [RC] ONETIME Blood Culture x2 Reflex Set [OM.PC] Stat 12/18/18 04:30 CULTURE BLOOD [BC] Stat Dextrose 5%-0.9% NaCl [Dextrose 5%-Normal Saline] 1,000 ml IV ASDIRECTED 12/18/18 04:45 CULTURE BLOOD [BC] Stat 12/18/18 05:02 CULTURE URINE [RM] Stat 12/18/18 05:32 Patient Status [ADT] Routine 12/18/18 09:00 LACTIC ACID [CHEM] Timed
[2018-12-18] MEDS ORDERED: Ibuprofen 600 MG Tab PO ONE (03:25)
[2018-12-18] MEDS ORDERED: Magnesium Sulfate/Water 2 GM in Premix Bag 1 BAG IV ONE (03:32)
[2018-12-18] MEDS ORDERED: Potassium Chloride 20 MEQ Tab.ER PO ONE (03:40)
[2018-12-18] MEDS ORDERED: Acetaminophen 325 MG Tab PO ONE (05:30)
--- NOTE | 2018-12-18 07:03 | CR ---
Chest: Portable view of the chest was obtained. Comparison: Prior chest x-ray of 05/18/18. Heart size and mediastinum are normal. Lungs are clear. Bony structures are unremarkable. Impression: 1. Nothing acute is seen on frontal chest x-ray. Diagnostic code #1
[2018-12-18] MEDS ORDERED: Ondansetron 4 MG/2 ML SDV IV PRN (08:31)
[2018-12-18] MEDS ORDERED: Ondansetron 4 MG Tab.DIS PO PRN (08:31)
[2018-12-18] MEDS ORDERED: hydrALAZINE 20 MG/ML SDV IVPUSH PRN (08:34)
[2018-12-18] MEDS ORDERED: 50% Dextrose in Water 50 ML Syringe IVPUSH PRN (08:36)
[2018-12-18] MEDS ORDERED: Sodium Chloride 0.9% 1,000 ML IV SCH (08:45)
[2018-12-18] MEDS ORDERED: SUBOXONE PO SCH (09:00)
[2018-12-18] MEDS ORDERED: Nicotine 14 MG/24 Hr Patch TRDERM SCH (09:00)
[2018-12-18] MEDS ORDERED: INSULIN DEGLUDEC 34 UNIT SQ SCH (09:00)
[2018-12-18] MEDS: Insulin Lispro 100 Unit/ML 3 ML KwikPen SUBCUT SCH ×2 (09:34→11:04)
[2018-12-18 10:08] LABS: HEMOGLOBIN A1C 10.4 % (4.50-6.20)
[2018-12-18] MEDS ORDERED: Acetaminophen 325 MG Tab PO PRN (11:25)
--- NOTE | 2018-12-18 12:34 | PCM.HP ---
H&P History of Present Illness - General Date of Service: 12/18/18 Admit Problem/Dx: Admission Diagnosis/Problem Admission Diagnosis/Problem Hypoglycemia Source of Information: Patient, Provider, RN Notes Reviewed History Limitations: Reports: No Limitations - History of Present Illness Initial Comments - Free Text/Narative: This is a 33 yo white female with past medical hx/o Endometriosis, OA/DJD, Back Pain, DM1 on Insulin Regimen, Eczema and Psoriasis, Chronic Pain on Suboxone, Hx /o MRSA and Hx/o Meth and Dilaudid Abuse who was brought in by EMS last night for evaluation of unresponsiveness with seizure like activity. She was found to have a "low" level of glucose on initial evaluation. However she ended up getting glucagon of 1 mg en route to ED because of inadequate IV access. Her documented glucose level after that was 51. Upon presentation to ED, she was found somewhat confused but able to answer most questions with a glucose level of 81. Her initial work up in ED showed a CBC remarkable for Neutrophils of 30% and Lymphocytes of 59%. Her ABG showed a pH of 7.34, pCO2 of 48.4, pO2 of 95, HCO3 of 25.7 and an O2 Sat of 96.9. Her Chemistry was significant for K of 3.2, AG of 20.2, LA of 4.9, Mg of 1.6, AST of 48, ALT of 69, Alk Phos of 143, Lipase of 33 and TSH of 3.8707. Her UA was negative for UTI. Her screening was negative. Her UDS was positive for THC. Her chest x-ray showed no acute abnormal findings. Patient was admitted overnight primarily for symptomatic hypoglycemia. She is full code. Headache Pain Score (Numeric/FACES): 8 - Related Data Allergies/Adverse Reactions: Allergies Allergy/AdvReac Type Severity Reaction Status Date / Time latex Allergy Hives Verified 12/18/18 02:36 tramadol Allergy Hives Verified 12/18/18 02:36 Home Medications: Home Meds Insulin Aspart [Novolog Flexpen] See Protocol SUBCNJ TIDMEALS 01/05/18 [History] Ondansetron [Zofran ODT] 4 mg PO Q6H PRN #20 tab.dis 04/08/18 [Rx] Insulin Degludec [Tresiba] 34 unit SQ DAILY 12/18/18 [History] Suboxone. 20 mg PO DAILY 12/18/18 [History] Past Medical History Respiratory History: Reports: Asthma 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 History: Reports: Acute Renal Failure X [employer] History: Reports: Endometriosis, (x 5) Other OB/BYN History: x5 Musculoskeletal History: Reports: Arthritis, Back Pain, Chronic Neurological History: Reports: Migraines, Seizure (2 hypoglycemia) Other Neuro History: Diabetic seizure Psychiatric History: Reports: Addiction (methamphetamine, Dilaudid) 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 Endocrine/Metabolic History: Reports: Diabetes, Type I Hematologic History: Reports: Blood Transfusion(s) Other Hematologic History: ammenoriah Dermatologic History: Reports: Eczema, Psoriasis - Infectious Disease History Infectious Disease History: Reports: MRSA Other Infectious Disease History: MRSA-2 yrs ago - Past Surgical History GI Surgical History: Reports: Cholecystectomy (2013?), Other (See Below) (Small bowel resection) Female Surgical History: Reports: D&C (x 1) Social & Family History - Family History Family Medical History: Noncontributory - Tobacco Use Smoking Status *Q: Current Every Day Smoker Years of Tobacco use: 18 Packs/Tins Daily: 1 Used Tobacco, but Quit: No Second Hand Smoke Exposure: No - Caffeine Use Caffeine Use: Reports: Soda Other Caffeine Use: drinks mellow yellow daily about 3 cans - Recreational Drug Use Recreational Drug Use: Yes Drug Use in Last 12 Months: Yes Recreational Drug Type: Reports: Dilaudid (last injected and ate late March 2018) , Marijuana/Hashish (last smoked May 2018), Methamphetamine (last smoked May 2018) Other Recreational Drug Type: Hx. of addiction meth, pot and dilaudid. - Living Situation & Occupation Living situation: Reports: Single, with Family Occupation: Unemployed H&P Review of Systems - Review of Systems: Review Of Systems: ROS reveals no pertinent complaints other than HPI. Exam - Exam Exam: See Below - Vital Signs Vital Signs: Last Vital Signs Temp 36.5 C 12/18/18 08:12 Pulse 86 12/18/18 06:03 Resp 16 12/18/18 06:03 BP 145/99 H 12/18/18 06:03 Pulse Ox 98 12/18/18 06:03 Weight: 67.358 kg - Exam General: Alert, Oriented, Cooperative HEENT: Conjunctiva Clear, EACs Clear, EOMI, Hearing Intact, Mucosa Moist & [place] , Nares Patent, Normal Nasal Septum, Posterior Pharynx Clear, Pupils Equal, Pupils Reactive, Other (w/o full set of teeth) Neck: Supple, Trachea Midline, +2 Carotid Pulse wo Bruit, Full Range of Motion. No: JVD Lungs: Clear to Auscultation, Normal Respiratory Effort Cardiovascular: Regular Rate, Regular Rhythm GI/Abdominal Exam: Normal Bowel Sounds, Soft, Non-Tender, No Organomegaly, No Distention, No Abnormal Bruit, No Mass (Female) Exam: Deferred Rectal (Female) Exam: Deferred Back Exam: Normal Inspection, Decreased Range of Motion Extremities: Normal Inspection, Normal Range of Motion, Non-Tender, No Pedal Edema, Normal Capillary Refill Peripheral Pulses: 2+: Dorsalis Pedis (L), Dorsalis Pedis (R) Skin: Warm, Dry, Intact Neuro Extensive - Mental Status: Oriented x3, Normal Cognition, Memory Intact Neuro Extensive - Motor, Sensory, Reflexes: CN II-XII Intact, Normal Gait Psychiatric: Alert, Normal Affect, Normal Mood - Patient Data Lab Results Last 24 hrs: Laboratory Results - last 24 hr 12/18/18 12/18/18 12/18/18 Range/Units 02:36 02:40 02:40 WBC 7.28 (3.98-10.04) K/mm3 RBC 4.57 (3.98-5.22) M/mm3 Hgb 13.4 (11.2-15.7) gm/L Hct 40.0 (34.1-44.9) % MCV 87.5 (79.4-94.8) fl MCH 29.3 (25.6-32.2) pg MCHC 33.5 (32.2-35.5) g/dl RDW Std Deviation 38.0 (36.4-46.3) fL Plt Count 286 (182-369) K/mm3 MPV 9.5 (9.4-12.3) fl Neutrophils % (Manual) 30 L (40-60) % Band Neutrophils % 0 (0-10) % Lymphocytes % (Manual) 59 H (20-40) % Atypical Lymphs % 0 % Monocytes % (Manual) 7 (2-10) % Eosinophils % (Manual) 4 (0.7-5.8) % Basophils % (Manual) 0 L (0.1-1.2) Platelet Estimate Adequate RBC Morph Comment Normal Puncture Site ABG pH (7.35-7.45) ABG pCO2 (35.0-45.0) mmHg ABG pO2 (80.0-100.0) mmHg ABG HCO3 (22.0-26.0) meq/L ABG O2 Saturation (96.0-97.0) % ABG Base Excess (-2-2.0) Darrell Test Sodium 145 (136-145) mEq/L Potassium 3.2 L (3.5-5.1) mEq/L Chloride 106 (98-107) mEq/L Carbon Dioxide 22 (21-32) mEq/L Anion Gap 20.2 H (5-15) BUN 17 (7-18) mg/dL Creatinine 0.9 (0.55-1.02) mg/dL Est Cr Clr Drug Dosing TNP Estimated GFR (MDRD) > 60 (>60) mL/min BUN/Creatinine Ratio 18.9 H (14-18) Glucose 84 (74-106) mg/dL POC Glucose 81 (70-105) mg/dL Hemoglobin A1c (4.50-6.20) % Lactic Acid (0.4-2.0) mmol/L Calcium 9.3 (8.5-10.1) mg/dL Magnesium 1.6 L (1.8-2.4) mg/dl Total Bilirubin 0.2 (0.2-1.0) mg/dL AST 48 H (15-37) U/L ALT 69 H (14-59) U/L Alkaline Phosphatase 143 H (46-116) U/L Total Protein 6.8 (6.4-8.2) g/dl Albumin 3.7 (3.4-5.0) g/dl Globulin 3.1 gm/dL Albumin/Globulin Ratio 1.2 (1-2) Lipase 33 L (73-393) U/L Free T4 (0.76-1.46) ng/dL TSH 3rd Generation 3.807 H (0.358-3.74) uIU/mL Urine Color (Yellow) Urine Appearance (Clear) Urine pH (5.0-8.0) Ur Specific Amigo (1.005-1.030) Urine Protein (Negative) Urine Glucose (UA) (Negative) Urine Ketones (Negative) Urine Occult Blood (Negative) Urine Nitrite (Negative) Urine Bilirubin (Negative) Urine Urobilinogen (0.2-1.0) Ur Leukocyte Esterase (Negative) Urine RBC (0-5) /hpf Urine WBC (0-5) /hpf Ur Epithelial Cells (0-5) /hpf Urine Bacteria (FEW) /hpf Urine Mucus (FEW) /hpf Urine Yeast (Budding) (NOT SEEN) Urine HCG, Qual (NEGATIVE) Urine Opiates Screen (WKRXIZ=616) Ur Buprenorphine Scrn (CUTOFF=10) Ur Oxycodone Screen (CHZ7PO=187) Urine Methadone Screen (LFRUNY=163) Ur Propoxyphene Screen (PFFHNX=718) Ur Barbiturates Screen (AKNPKS=217) Ur Tricyclics Screen (ZVPZBW=206) Ur Phencyclidine Scrn (CUTOFF=25) Ur Amphetamine Screen (WYJYTN=130) U Methamphetamines Scrn (XUEVFF=485) U Benzodiazepines Scrn (AHZRID=879) U Cocaine Metab Screen (ZRUJRL=426) U Marijuana (THC) Screen (CUTOFF=50) Ethyl Alcohol 0.00 (0.00) gm% Ketones (0.0-0.3) mM 12/18/18 12/18/18 12/18/18 Range/Units 02:40 03:10 03:20 WBC (3.98-10.04) K/mm3 RBC (3.98-5.22) M/mm3 Hgb (11.2-15.7) gm/L Hct (34.1-44.9) % MCV (79.4-94.8) fl MCH (25.6-32.2) pg MCHC (32.2-35.5) g/dl RDW Std Deviation (36.4-46.3) fL Plt Count (182-369) K/mm3 MPV (9.4-12.3) fl Neutrophils % (Manual) (40-60) % Band Neutrophils % (0-10) % Lymphocytes % (Manual) (20-40) % Atypical Lymphs % % Monocytes % (Manual) (2-10) % Eosinophils % (Manual) (0.7-5.8) % Basophils % (Manual) (0.1-1.2) Platelet Estimate RBC Morph Comment Puncture Site Rt radial ABG pH 7.34 L (7.35-7.45) ABG pCO2 48.4 H (35.0-45.0) mmHg ABG pO2 95.0 (80.0-100.0) mmHg ABG HCO3 25.7 (22.0-26.0) meq/L ABG O2 Saturation 96.9 (96.0-97.0) % ABG Base Excess 0.1 (-2-2.0) Darrell Test Positive Sodium (136-145) mEq/L Potassium (3.5-5.1) mEq/L Chloride (98-107) mEq/L Carbon Dioxide (21-32) mEq/L Anion Gap (5-15) BUN (7-18) mg/dL Creatinine (0.55-1.02) mg/dL Est Cr Clr Drug Dosing Estimated GFR (MDRD) (>60) mL/min BUN/Creatinine Ratio (14-18) Glucose (74-106) mg/dL POC Glucose (70-105) mg/dL Hemoglobin A1c (4.50-6.20) % Lactic Acid 4.9 H (0.4-2.0) mmol/L Calcium (8.5-10.1) mg/dL Magnesium (1.8-2.4) mg/dl Total Bilirubin (0.2-1.0) mg/dL AST (15-37) U/L ALT (14-59) U/L Alkaline Phosphatase (46-116) U/L Total Protein (6.4-8.2) g/dl Albumin (3.4-5.0) g/dl Globulin gm/dL Albumin/Globulin Ratio (1-2) Lipase (73-393) U/L Free T4 (0.76-1.46) ng/dL TSH 3rd Generation (0.358-3.74) uIU/mL Urine Color (Yellow) Urine Appearance (Clear) Urine pH (5.0-8.0) Ur Specific Amigo (1.005-1.030) Urine Protein (Negative) Urine Glucose (UA) (Negative) Urine Ketones (Negative) Urine Occult Blood (Negative) Urine Nitrite (Negative) Urine Bilirubin (Negative) Urine Urobilinogen (0.2-1.0) Ur Leukocyte Esterase (Negative) Urine RBC (0-5) /hpf Urine WBC (0-5) /hpf Ur Epithelial Cells (0-5) /hpf Urine Bacteria (FEW) /hpf Urine Mucus (FEW) /hpf Urine Yeast (Budding) (NOT SEEN) Urine HCG, Qual (NEGATIVE) Urine Opiates Screen (DFNUWF=441) Ur Buprenorphine Scrn (CUTOFF=10) Ur Oxycodone Screen (QSK4TK=171) Urine Methadone Screen (LFNKWJ=302) Ur Propoxyphene Screen (TVRIXO=685) Ur Barbiturates Screen (KOICRD=511) Ur Tricyclics Screen (ZKJDOK=186) Ur Phencyclidine Scrn (CUTOFF=25) Ur Amphetamine Screen (JOQTTN=332) U Methamphetamines Scrn (QRCITC=397) U Benzodiazepines Scrn (EIHEER=454) U Cocaine Metab Screen (ATSIYG=912) U Marijuana (THC) Screen (CUTOFF=50) Ethyl Alcohol (0.00) gm% Ketones 0.12 (0.0-0.3) mM 12/18/18 12/18/18 12/18/18 Range/Units 04:00 04:00 04:00 WBC (3.98-10.04) K/mm3 RBC (3.98-5.22) M/mm3 Hgb (11.2-15.7) gm/L Hct (34.1-44.9) % MCV (79.4-94.8) fl MCH (25.6-32.2) pg MCHC (32.2-35.5) g/dl RDW Std Deviation (36.4-46.3) fL Plt Count (182-369) K/mm3 MPV (9.4-12.3) fl Neutrophils % (Manual) (40-60) % Band Neutrophils % (0-10) % Lymphocytes % (Manual) (20-40) % Atypical Lymphs % % Monocytes % (Manual) (2-10) % Eosinophils % (Manual) (0.7-5.8) % Basophils % (Manual) (0.1-1.2) Platelet Estimate RBC Morph Comment Puncture Site ABG pH (7.35-7.45) ABG pCO2 (35.0-45.0) mmHg ABG pO2 (80.0-100.0) mmHg ABG HCO3 (22.0-26.0) meq/L ABG O2 Saturation (96.0-97.0) % ABG Base Excess (-2-2.0) Darrell Test Sodium (136-145) mEq/L Potassium (3.5-5.1) mEq/L Chloride (98-107) mEq/L Carbon Dioxide (21-32) mEq/L Anion Gap (5-15) BUN (7-18) mg/dL Creatinine (0.55-1.02) mg/dL Est Cr Clr Drug Dosing Estimated GFR (MDRD) (>60) mL/min BUN/Creatinine Ratio (14-18) Glucose (74-106) mg/dL POC Glucose (70-105) mg/dL Hemoglobin A1c (4.50-6.20) % Lactic Acid (0.4-2.0) mmol/L Calcium (8.5-10.1) mg/dL Magnesium (1.8-2.4) mg/dl Total Bilirubin (0.2-1.0) mg/dL AST (15-37) U/L ALT (14-59) U/L Alkaline Phosphatase (46-116) U/L Total Protein (6.4-8.2) g/dl Albumin (3.4-5.0) g/dl Globulin gm/dL Albumin/Globulin Ratio (1-2) Lipase (73-393) U/L Free T4 (0.76-1.46) ng/dL TSH 3rd Generation (0.358-3.74) uIU/mL Urine Color Yellow (Yellow) Urine Appearance Slt cloudy H (Clear) Urine pH 6.5 (5.0-8.0) Ur Specific Amigo 1.025 (1.005-1.030) Urine Protein Trace H (Negative) Urine Glucose (UA) 2+ H (Negative) Urine Ketones Negative (Negative) Urine Occult Blood Trace-intact H (Negative) Urine Nitrite Negative (Negative) Urine Bilirubin Negative (Negative) Urine Urobilinogen 0.2 (0.2-1.0) Ur Leukocyte Esterase Negative (Negative) Urine RBC 10-20 H (0-5) /hpf Urine WBC 10-20 H (0-5) /hpf Ur Epithelial Cells 5-10 H (0-5) /hpf Urine Bacteria Moderate H (FEW) /hpf Urine Mucus Few (FEW) /hpf Urine Yeast (Budding) Few H (NOT SEEN) Urine HCG, Qual Negative (NEGATIVE) Urine Opiates Screen Negative (UKBJMR=218) Ur Buprenorphine Scrn Presumptive positive (CUTOFF=10) Ur Oxycodone Screen Negative (GSG1FS=404) Urine Methadone Screen Negative (BQMGSW=377) Ur Propoxyphene Screen Negative (PPGINX=349) Ur Barbiturates Screen Negative (EZUVDX=901) Ur Tricyclics Screen Negative (NVNWTE=187) Ur Phencyclidine Scrn Negative (CUTOFF=25) Ur Amphetamine Screen Negative (YTEZGX=654) U Methamphetamines Scrn Negative (EQGXVP=319) U Benzodiazepines Scrn Negative (LKZLEL=264) U Cocaine Metab Screen Negative (BEFDTQ=903) U Marijuana (THC) Screen Presumptive positive H (CUTOFF=50) Ethyl Alcohol (0.00) gm% Ketones (0.0-0.3) mM 12/18/18 12/18/18 12/18/18 Range/Units 04:23 06:03 08:27 WBC (3.98-10.04) K/mm3 RBC (3.98-5.22) M/mm3 Hgb (11.2-15.7) gm/L Hct (34.1-44.9) % MCV (79.4-94.8) fl MCH (25.6-32.2) pg MCHC (32.2-35.5) g/dl RDW Std Deviation (36.4-46.3) fL Plt Count (182-369) K/mm3 MPV (9.4-12.3) fl Neutrophils % (Manual) (40-60) % Band Neutrophils % (0-10) % Lymphocytes % (Manual) (20-40) % Atypical Lymphs % % Monocytes % (Manual) (2-10) % Eosinophils % (Manual) (0.7-5.8) % Basophils % (Manual) (0.1-1.2) Platelet Estimate RBC Morph Comment Puncture Site ABG pH (7.35-7.45) ABG pCO2 (35.0-45.0) mmHg ABG pO2 (80.0-100.0) mmHg ABG HCO3 (22.0-26.0) meq/L ABG O2 Saturation (96.0-97.0) % ABG Base Excess (-2-2.0) Darrell Test Sodium (136-145) mEq/L Potassium (3.5-5.1) mEq/L Chloride (98-107) mEq/L Carbon Dioxide (21-32) mEq/L Anion Gap (5-15) BUN (7-18) mg/dL Creatinine (0.55-1.02) mg/dL Est Cr Clr Drug Dosing Estimated GFR (MDRD) (>60) mL/min BUN/Creatinine Ratio (14-18) Glucose (74-106) mg/dL POC Glucose 221 H 263 H 350 H (70-105) mg/dL Hemoglobin A1c (4.50-6.20) % Lactic Acid (0.4-2.0) mmol/L Calcium (8.5-10.1) mg/dL Magnesium (1.8-2.4) mg/dl Total Bilirubin (0.2-1.0) mg/dL AST (15-37) U/L ALT (14-59) U/L Alkaline Phosphatase (46-116) U/L Total Protein (6.4-8.2) g/dl Albumin (3.4-5.0) g/dl Globulin gm/dL Albumin/Globulin Ratio (1-2) Lipase (73-393) U/L Free T4 (0.76-1.46) ng/dL TSH 3rd Generation (0.358-3.74) uIU/mL Urine Color (Yellow) Urine Appearance (Clear) Urine pH (5.0-8.0) Ur Specific Amigo (1.005-1.030) Urine Protein (Negative) Urine Glucose (UA) (Negative) Urine Ketones (Negative) Urine Occult Blood (Negative) Urine Nitrite (Negative) Urine Bilirubin (Negative) Urine Urobilinogen (0.2-1.0) Ur Leukocyte Esterase (Negative) Urine RBC (0-5) /hpf Urine WBC (0-5) /hpf Ur Epithelial Cells (0-5) /hpf Urine Bacteria (FEW) /hpf Urine Mucus (FEW) /hpf Urine Yeast (Budding) (NOT SEEN) Urine HCG, Qual (NEGATIVE) Urine Opiates Screen (XDFVKM=848) Ur Buprenorphine Scrn (CUTOFF=10) Ur Oxycodone Screen (SHY5XC=338) Urine Methadone Screen (VWILWX=760) Ur Propoxyphene Screen (KAXUSW=252) Ur Barbiturates Screen (KNVQQW=582) Ur Tricyclics Screen (XNWDER=464) Ur Phencyclidine Scrn (CUTOFF=25) Ur Amphetamine Screen (WIHJYD=400) U Methamphetamines Scrn (WWDUPG=755) U Benzodiazepines Scrn (KSJYCS=024) U Cocaine Metab Screen (WFEPNC=251) U Marijuana (THC) Screen (CUTOFF=50) Ethyl Alcohol (0.00) gm% Ketones (0.0-0.3) mM 12/18/18 12/18/18 12/18/18 Range/Units 09:05 09:05 09:05 WBC (3.98-10.04) K/mm3 RBC (3.98-5.22) M/mm3 Hgb (11.2-15.7) gm/L Hct (34.1-44.9) % MCV (79.4-94.8) fl MCH (25.6-32.2) pg MCHC (32.2-35.5) g/dl RDW Std Deviation (36.4-46.3) fL Plt Count (182-369) K/mm3 MPV (9.4-12.3) fl Neutrophils % (Manual) (40-60) % Band Neutrophils % (0-10) % Lymphocytes % (Manual) (20-40) % Atypical Lymphs % % Monocytes % (Manual) (2-10) % Eosinophils % (Manual) (0.7-5.8) % Basophils % (Manual) (0.1-1.2) Platelet Estimate RBC Morph Comment Puncture Site ABG pH (7.35-7.45) ABG pCO2 (35.0-45.0) mmHg ABG pO2 (80.0-100.0) mmHg ABG HCO3 (22.0-26.0) meq/L ABG O2 Saturation (96.0-97.0) % ABG Base Excess (-2-2.0) Darrell Test Sodium 138 (136-145) mEq/L Potassium 6.3 H* (3.5-5.1) mEq/L Chloride 104 (98-107) mEq/L Carbon Dioxide 30 (21-32) mEq/L Anion Gap 10.3 (5-15) BUN 19 H (7-18) mg/dL Creatinine 0.8 (0.55-1.02) mg/dL Est Cr Clr Drug Dosing 92.76 Estimated GFR (MDRD) > 60 (>60) mL/min BUN/Creatinine Ratio 23.8 H (14-18) Glucose 322 H (74-106) mg/dL POC Glucose (70-105) mg/dL Hemoglobin A1c 10.40 H (4.50-6.20) % Lactic Acid 1.4 (0.4-2.0) mmol/L Calcium 8.9 (8.5-10.1) mg/dL Magnesium 2.3 (1.8-2.4) mg/dl Total Bilirubin (0.2-1.0) mg/dL AST (15-37) U/L ALT (14-59) U/L Alkaline Phosphatase (46-116) U/L Total Protein (6.4-8.2) g/dl Albumin (3.4-5.0) g/dl Globulin gm/dL Albumin/Globulin Ratio (1-2) Lipase (73-393) U/L Free T4 0.99 (0.76-1.46) ng/dL TSH 3rd Generation (0.358-3.74) uIU/mL Urine Color (Yellow) Urine Appearance (Clear) Urine pH (5.0-8.0) Ur Specific Amigo (1.005-1.030) Urine Protein (Negative) Urine Glucose (UA) (Negative) Urine Ketones (Negative) Urine Occult Blood (Negative) Urine Nitrite (Negative) Urine Bilirubin (Negative) Urine Urobilinogen (0.2-1.0) Ur Leukocyte Esterase (Negative) Urine RBC (0-5) /hpf Urine WBC (0-5) /hpf Ur Epithelial Cells (0-5) /hpf Urine Bacteria (FEW) /hpf Urine Mucus (FEW) /hpf Urine Yeast (Budding) (NOT SEEN) Urine HCG, Qual (NEGATIVE) Urine Opiates Screen (VCOEKP=136) Ur Buprenorphine Scrn (CUTOFF=10) Ur Oxycodone Screen (BPX7RA=962) Urine Methadone Screen (QXBYJT=458) Ur Propoxyphene Screen (JXQNNB=649) Ur Barbiturates Screen (MXIBOA=195) Ur Tricyclics Screen (FOEPZG=799) Ur Phencyclidine Scrn (CUTOFF=25) Ur Amphetamine Screen (ZCNMNN=212) U Methamphetamines Scrn (UDWATZ=299) U Benzodiazepines Scrn (OQGVTK=914) U Cocaine Metab Screen (JQWVPX=740) U Marijuana (THC) Screen (CUTOFF=50) Ethyl Alcohol (0.00) gm% Ketones (0.0-0.3) mM 12/18/18 Range/Units 11:00 WBC (3.98-10.04) K/mm3 RBC (3.98-5.22) M/mm3 Hgb (11.2-15.7) gm/L Hct (34.1-44.9) % MCV (79.4-94.8) fl MCH (25.6-32.2) pg MCHC (32.2-35.5) g/dl RDW Std Deviation (36.4-46.3) fL Plt Count (182-369) K/mm3 MPV (9.4-12.3) fl Neutrophils % (Manual) (40-60) % Band Neutrophils % (0-10) % Lymphocytes % (Manual) (20-40) % Atypical Lymphs % % Monocytes % (Manual) (2-10) % Eosinophils % (Manual) (0.7-5.8) % Basophils % (Manual) (0.1-1.2) Platelet Estimate RBC Morph Comment Puncture Site ABG pH (7.35-7.45) ABG pCO2 (35.0-45.0) mmHg ABG pO2 (80.0-100.0) mmHg ABG HCO3 (22.0-26.0) meq/L ABG O2 Saturation (96.0-97.0) % ABG Base Excess (-2-2.0) Darrell Test Sodium (136-145) mEq/L Potassium (3.5-5.1) mEq/L Chloride (98-107) mEq/L Carbon Dioxide (21-32) mEq/L Anion Gap (5-15) BUN (7-18) mg/dL Creatinine (0.55-1.02) mg/dL Est Cr Clr Drug Dosing Estimated GFR (MDRD) (>60) mL/min BUN/Creatinine Ratio (14-18) Glucose (74-106) mg/dL POC Glucose 372 H (70-105) mg/dL Hemoglobin A1c (4.50-6.20) % Lactic Acid (0.4-2.0) mmol/L Calcium (8.5-10.1) mg/dL Magnesium (1.8-2.4) mg/dl Total Bilirubin (0.2-1.0) mg/dL AST (15-37) U/L ALT (14-59) U/L Alkaline Phosphatase (46-116) U/L Total Protein (6.4-8.2) g/dl Albumin (3.4-5.0) g/dl Globulin gm/dL Albumin/Globulin Ratio (1-2) Lipase (73-393) U/L Free T4 (0.76-1.46) ng/dL TSH 3rd Generation (0.358-3.74) uIU/mL Urine Color (Yellow) Urine Appearance (Clear) Urine pH (5.0-8.0) Ur Specific Amigo (1.005-1.030) Urine Protein (Negative) Urine Glucose (UA) (Negative) Urine Ketones (Negative) Urine Occult Blood (Negative) Urine Nitrite (Negative) Urine Bilirubin (Negative) Urine Urobilinogen (0.2-1.0) Ur Leukocyte Esterase (Negative) Urine RBC (0-5) /hpf Urine WBC (0-5) /hpf Ur Epithelial Cells (0-5) /hpf Urine Bacteria (FEW) /hpf Urine Mucus (FEW) /hpf Urine Yeast (Budding) (NOT SEEN) Urine HCG, Qual (NEGATIVE) Urine Opiates Screen (ICOWDM=133) Ur Buprenorphine Scrn (CUTOFF=10) Ur Oxycodone Screen (DHT5SU=686) Urine Methadone Screen (FGOQRH=663) Ur Propoxyphene Screen (ZSMEKU=992) Ur Barbiturates Screen (XMPYGK=222) Ur Tricyclics Screen (ZSJOMP=765) Ur Phencyclidine Scrn (CUTOFF=25) Ur Amphetamine Screen (PQLHLI=839) U Methamphetamines Scrn (OUYDIZ=796) U Benzodiazepines Scrn (OOCTPU=187) U Cocaine Metab Screen (KACIXD=819) U Marijuana (THC) Screen (CUTOFF=50) Ethyl Alcohol (0.00) gm% Ketones (0.0-0.3) mM Result Diagrams: 12/18/18 02:40 12/18/18 09:05 Problem List Initiated/Reviewed/Updated: Yes Orders Last 24hrs: Active Orders 24 hr Category Date Time Status Patient Status [ADT] Routine ADT 12/18/18 05:32 Active Blood Glucose Check, Bedside [RC] ASDIRECTED Care 12/18/18 06:44 Active EKG Documentation Completion [RC] STAT Care 12/18/18 02:55 Active Height and Weight [RC] DAILY Care 12/18/18 08:31 Active Intake and Output [RC] QSHIFT Care 12/18/18 08:32 Active Oxygen Therapy [RC] PRN Care 12/18/18 08:31 Active Pulse Oximetry [RC] PRN Care 12/18/18 08:32 Active Up ad Brittany [RC] ASDIRECTED Care 12/18/18 08:31 Active VTE/DVT Education [RC] PER UNIT ROUTINE Care 12/18/18 08:31 Active Vital Signs [RC] Q4H Care 12/18/18 08:31 Active Consult to Human Performance Consultant [Consult to Diabetic Nurse Cons 12/18/18 06:48 Active Specialist] [CONS] Routine Consult to Certified Low Vision Therapist [CONS] Routine Cons 12/18/18 08:31 Active [place] Diet [DIET] Diet 12/18/18 Breakfast Active Head wo Cont [CT] Routine Exams 12/18/18 12:29 Ordered BASIC METABOLIC PANEL,BMP [CHEM] AM Lab 12/19/18 05:11 Ordered BASIC METABOLIC PANEL,BMP [CHEM] AM Lab 12/20/18 05:11 Ordered BASIC METABOLIC PANEL,BMP [CHEM] AM Lab 12/21/18 05:11 Ordered BASIC METABOLIC PANEL,BMP [CHEM] AM Lab 12/22/18 05:11 Ordered BMP [BASIC METABOLIC PANEL,BMP] [CHEM] Routine Lab 12/18/18 14:00 Ordered CBC WITH AUTO DIFF [HEME] AM Lab 12/19/18 05:11 Ordered CBC WITH AUTO DIFF [HEME] AM Lab 12/20/18 05:11 Ordered CBC WITH AUTO DIFF [HEME] AM Lab 12/21/18 05:11 Ordered CBC WITH AUTO DIFF [HEME] AM Lab 12/22/18 05:11 Ordered CULTURE BLOOD [BC] Stat Lab 12/18/18 04:30 Received CULTURE BLOOD [BC] Stat Lab 12/18/18 04:45 Received CULTURE URINE [RM] Stat Lab 12/18/18 04:00 Received MAGNESIUM [CHEM] AM Lab 12/19/18 05:11 Ordered MAGNESIUM [CHEM] AM Lab 12/20/18 05:11 Ordered MAGNESIUM [CHEM] AM Lab 12/21/18 05:11 Ordered MAGNESIUM [CHEM] AM Lab 12/22/18 05:11 Ordered Acetaminophen [Tylenol] Med 12/18/18 11:25 Active 650 mg PO Q4H PRN Dextrose 5%-0.9% NaCl [Dextrose 5%-Normal Saline] 1,000 Med 12/18/18 08:45 Active ml IV ASDIRECTED Insulin Lispro [HumaLOG] Med 12/18/18 09:30 Active See Protocol SUBCUT QIDACANDBED Nicotine [Habitrol] Med 12/18/18 09:00 Active 14 mg TRDERM DAILY Ondansetron [Zofran ODT] Med 12/18/18 08:31 Active 4 mg PO Q6H PRN Ondansetron [Zofran] Med 12/18/18 08:31 Active 4 mg IV Q6H PRN Patient's Own Medication [Ptom] Med 12/18/18 09:00 Active 0 each PO DAILY Pharmacy to Dose - Magnesium R [Pharmacy to Dose - Med 12/18/18 08:45 Active Magnesium Replacement] 1 dose .XX ASDIRECTED Pharmacy to Dose - Potassium R [Pharmacy to Dose - Med 12/18/18 08:45 Active Potassium Replacement] 1 dose .XX ASDIRECTED hydrALAZINE [Apresoline] Med 12/18/18 08:34 Active 20 mg IVPUSH Q4H PRN Blood Culture x2 Reflex Set [OM.PC] Stat Oth 12/18/18 04:20 Ordered Resuscitation Status Routine Resus Stat 12/18/18 06:44 Ordered Medication Orders Acetaminophen (Tylenol) 650 mg PO Q4H PRN PRN Reason: Pain Last Admin: 12/18/18 12:05 Dose: 650 mg Hydralazine HCl (Apresoline) 20 mg IVPUSH Q4H PRN PRN Reason: Hypertension Dextrose/Sodium Chloride (Dextrose 5%-Normal Saline) 1,000 mls @ 150 mls/hr IV ASDIRECTED [facility] Last Admin: 12/18/18 09:34 Dose: 150 mls/hr Insulin Human Lispro (Humalog) 0 unit SUBCUT QIDACANDBED [facility]; Protocol Last Admin: 12/18/18 11:04 Dose: 10 units Admin: 12/18/18 09:34 Dose: 10 units Magnesium Sulfate (Pharmacy To Dose - Magnesium Replacement) 1 dose .XX ASDIRECTED [facility] Nicotine (Habitrol) 14 mg TRDERM DAILY [facility] Last Admin: 12/18/18 09:36 Dose: 14 mg Ondansetron HCl (Zofran Odt) 4 mg PO Q6H PRN PRN Reason: nausea, able to take PO Ondansetron HCl (Zofran) 4 mg IV Q6H PRN PRN Reason: Nausea/Vomiting Suboxone. 20 Mg 0 each PO DAILY [facility] Last Admin: 12/18/18 12:02 Dose: Potassium Chloride (Pharmacy To Dose - Potassium Replacement) 1 dose .XX ASDIRECTED [facility] Assessment/Plan Comment:: Assessment/Plan: Acute: Symptomatic Hypoglycemia - She has a hx/o DM1 - Likely medical non-adherence - BS before arrival to ED 51; 81 on presentation; off her baseline; now in the 300s - A1C 11.60 01/21/2018; today is 10.40 - She checks her BS in AM/HS - She normally runs in the 100s in AM and 400s in HS - She is on LA and SA Insulin (her home regimen was recently adjusted) - She follows Dr. Callejas in [place] - Received D5 to improve BS level - Accu-check and ADA diet - DM educator and Dietary consult Hyperkalemia - K 6.2 ---> 2/2 iatrogenic from oversupplementation - Asymptomatic - Repeat level this PM Substance Abuse - UDS pos for THC - She is already on Suboxone S/p Unresponsiveness/[id number] - UDS pos for THC; denies recent use of marijuana - No hx/o Seizure Disorder - Head CT scan to r/o intra-cranial abnormality S/p Hypokalemia - K 3.2 - 2/2 insulin use and inadequate in take - Received supplement overnight S/p Lactic Acidosis - 2/2 DM and Dehydration - No signs of Sepsis - Received hydration overnight - LA 4.9 on admission now 1.4 S/p Hypomagnesemia - Mg 1.6 --> 2.3 - 2/2 inadequate intake - Received supplement overnight Chronic: Endometriosis OA/DJD Back Pain DM1 Eczema and Psoriasis Chronic Pain on Suboxone Hx/o MRSA Hx/o Meth and Dilaudid Abuse Plan: Admitted overnight in the floor Routine AM Labs Resume Some Home Meds Head CT scan to r/o intra-cranial abnormality Accu-check and ISS Diabetic and Dietary Consult SW/CM for d/c planning Code status: 1 Possible d/c late this afternoon once gulose is stable
--- NOTE | 2018-12-18 13:15 | CT ---
Head CT Technique: Multiple axial sections through the brain were obtained. Intravenous contrast was not utilized. Comparison: Previous MRI brain dated 01/29/18. Findings: Ventricles along the basal cisterns and sulci over the convexities are within normal limits for the patient's age. No abnormal parenchymal densities are seen. No evidence of intracranial hemorrhage. No midline shift or mass effect is seen. Bone window settings were reviewed which show no acute calvarial abnormality. Small amount of fluid is seen within the posterior left ethmoid sinuses as well as minimal mucosal thickening within the right sphenoid and right mid ethmoid sinus. Impression: 1. Minimal sinus findings most likely incidental. 2. No acute intracranial abnormality is identified. Diagnostic code #2
--- NOTE | 2018-12-18 16:22 | PCM.DCSUM1 ---
Discharge Summary - Hospital Course HPI Initial Comments: According to EMS, with whom I spoke, the patient's brother called them because the patient may have been having some seizure-like activity. When they arrived, the patient was unresponsive, although it was not clear that she was seizing. An Accu-Chek was read as "low". They were unable to place an IV, therefore they gave glucagon 1 mg IM. A subsequent Accu-Chek en route to the ED was 24, then another Accu-Chek shortly before arrival to the ED was 51. Accu-Chek upon arrival to the ED was 81. The patient is somewhat confused, but is able to answer most of my questions. She denies recent illness. She is complaining of generalized body pain. The patient states that she has a history of methamphetamine use, last smoking in around May 2018, but she denies a history of opioid or heroin abuse. The paramedics brought, however, an empty pill bottle of Suboxone, prescribed to the patient 09/08/2018. The patient does not recall who her PCP is. Diagnosis: Stroke: No Modified Mcneil Scale: No Symptoms at All Modified Mcneil Scale Score: 0 - Discharge Data Discharge Date: 12/18/18 (ADMIT 12/18/18) Discharge Disposition: Home, Self-Care 01 Condition: Good - Patient Summary/Data Operative Procedure(s) Performed: none Complications: none Consults: Consultations 12/18/18 06:48 Consult to J2Ee Architect [Consult to Diabetic Nurse Specialist] [CONS] Routine 12/18/18 08:31 Consult to Professor Of Communication [CONS] Routine Labs Pending at D/C: none Recommended Follow-up Testing/Procedures: F/U with PCP in 7-10 days -recheck glucose F/U with wooden shade hardware installer in [place] Planned Operative Procedure(s) after DC: none Hospital Course: Assessment/Plan: Acute: Resolved: Symptomatic Hypoglycemia - She has a hx/o DM1 - Likely medical non-adherence - BS before arrival to ED 51; 81 on presentation; off her baseline; now in the 300s - A1C 11.60 01/21/2018; today is 10.40 - She checks her BS in AM/HS - She normally runs in the 100s in AM and 400s in HS - She is on LA and SA Insulin (her home regimen was recently adjusted) - She follows Dr. Callejas in [place] - Received D5 to improve BS level - Accu-check and ADA diet - DM educator and Dietary consult Hyperkalemia - 2/2 iatrogenic from oversupplementation - K 6.2 --> 4.5 - Asymptomatic - Repeat level this PM Substance Abuse - UDS pos for THC - She is already on Suboxone - She admits to using THC oil S/p Unresponsiveness/Kiszblz-Mijk-Kqovyemosq - UDS pos for THC; denies recent use of marijuana - No hx/o Seizure Disorder - Head CT scan to r/o intra-cranial abnormality--> nothing acute seen S/p Hypokalemia - K 3.2--> 6.3 --> 4.5 - 2/2 insulin use and inadequate in take - Received supplement overnight S/p Lactic Acidosis - 2/2 DM and Dehydration - No signs of Sepsis - Received hydration overnight - LA 4.9 on admission now 1.4 S/p Hypomagnesemia - Mg 1.6 --> 2.3 - 2/2 inadequate intake - Received supplement overnight Chronic: Endometriosis OA/DJD Back Pain DM1 Eczema and Psoriasis Chronic Pain on Suboxone Hx/o MRSA Hx/o Meth and Dilaudid Abuse Plan: Admitted overnight in the floor Routine AM Labs Resume Some Home Meds Head CT scan to r/o intra-cranial abnormality Accu-check and ISS Diabetic and Dietary Consult SW/CM for d/c planning Code status: 1 Possible d/c late this afternoon once gulose is stable - Patient Instructions Diet: Diabetic Diet Activity: As Tolerated Driving: Do Not Drive Showering/Bathing: May Shower Notify Provider of: Fever, Increased Pain, Nausea and/or Vomiting - Discharge Plan *PRESCRIPTION DRUG MONITORING PROGRAM REVIEWED*: Yes *COPY OF PRESCRIPTION DRUG MONITORING REPORT IN PATIENT TANNER: Yes Home Medications: Home Meds Insulin Aspart [Novolog Flexpen] See Protocol SUBCNJ TIDMEALS 01/05/18 [History] Ondansetron [Zofran ODT] 4 mg PO Q6H PRN #20 tab.dis 04/08/18 [Rx] Insulin Degludec [Tresiba] 34 unit SQ DAILY 12/18/18 [History] Suboxone. 20 mg PO DAILY 12/18/18 [History] Oxygen Therapy Mode: Room Air Patient Handouts: Cannabis Use Disorder, What You Need to Know About Marijuana Use, Correction Insulin, Steps to Quit Smoking Referrals: Fanta Canseco PA-C [Primary Care Provider] - 12/28/18 10:00 am (Please follow up with XI Henao on Friday, December 28, 2018 at 1000 AM. Please arrive 15 minutes early for check in. ) - Discharge Summary/Plan Comment DC Time >30 min.: Yes (40) - General Info Date of Service: 12/18/18 Admission Dx/Problem (Free Text: Admission Diagnosis/Problem Admission Diagnosis/Problem Hypoglycemia Functional Status: Reports: Pain Controlled, Tolerating Diet, Ambulating, Urinating - Review of Systems General: Reports: No Symptoms. Denies: Fever, Chills HEENT: Reports: No Symptoms Pulmonary: Reports: No Symptoms. Denies: Shortness of Breath, Cough Cardiovascular: Reports: No Symptoms. Denies: Chest Pain Gastrointestinal: Reports: No Symptoms. Denies: Abdominal Pain, Diarrhea, Nausea, Vomiting 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: Reports: No Symptoms Musculoskeletal: Reports: No Symptoms Skin: Reports: No Symptoms Neurological: Reports: No Symptoms Psychiatric: Reports: No Symptoms - Patient Data Vitals - Most Recent: Last Vital Signs Temp 98.2 F 12/18/18 13:33 Pulse 103 H 12/18/18 13:33 Resp 16 12/18/18 13:33 BP 114/70 12/18/18 13:33 Pulse Ox 94 L 12/18/18 13:33 Weight - Most Recent: 148 lb 8 oz I&O - Last 24 hours: Intake & Output 12/18/18 12/18/18 12/18/18 06:59 14:59 22:59 Intake Total 0 Balance 0 Lab Results - Last 24 hrs: Laboratory Results - last 24 hr 12/18/18 12/18/18 12/18/18 Range/Units 02:36 02:40 02:40 WBC 7.28 (3.98-10.04) K/mm3 RBC 4.57 (3.98-5.22) M/mm3 Hgb 13.4 (11.2-15.7) gm/L Hct 40.0 (34.1-44.9) % MCV 87.5 (79.4-94.8) fl MCH 29.3 (25.6-32.2) pg MCHC 33.5 (32.2-35.5) g/dl RDW Std Deviation 38.0 (36.4-46.3) fL Plt Count 286 (182-369) K/mm3 MPV 9.5 (9.4-12.3) fl Neutrophils % (Manual) 30 L (40-60) % Band Neutrophils % 0 (0-10) % Lymphocytes % (Manual) 59 H (20-40) % Atypical Lymphs % 0 % Monocytes % (Manual) 7 (2-10) % Eosinophils % (Manual) 4 (0.7-5.8) % Basophils % (Manual) 0 L (0.1-1.2) Platelet Estimate Adequate RBC Morph Comment Normal Puncture Site ABG pH (7.35-7.45) ABG pCO2 (35.0-45.0) mmHg ABG pO2 (80.0-100.0) mmHg ABG HCO3 (22.0-26.0) meq/L ABG O2 Saturation (96.0-97.0) % ABG Base Excess (-2-2.0) Darrell Test Sodium 145 (136-145) mEq/L Potassium 3.2 L (3.5-5.1) mEq/L Chloride 106 (98-107) mEq/L Carbon Dioxide 22 (21-32) mEq/L Anion Gap 20.2 H (5-15) BUN 17 (7-18) mg/dL Creatinine 0.9 (0.55-1.02) mg/dL Est Cr Clr Drug Dosing TNP Estimated GFR (MDRD) > 60 (>60) mL/min BUN/Creatinine Ratio 18.9 H (14-18) Glucose 84 (74-106) mg/dL POC Glucose 81 (70-105) mg/dL Hemoglobin A1c (4.50-6.20) % Lactic Acid (0.4-2.0) mmol/L Calcium 9.3 (8.5-10.1) mg/dL Magnesium 1.6 L (1.8-2.4) mg/dl Total Bilirubin 0.2 (0.2-1.0) mg/dL AST 48 H (15-37) U/L ALT 69 H (14-59) U/L Alkaline Phosphatase 143 H (46-116) U/L Total Protein 6.8 (6.4-8.2) g/dl Albumin 3.7 (3.4-5.0) g/dl Globulin 3.1 gm/dL Albumin/Globulin Ratio 1.2 (1-2) Lipase 33 L (73-393) U/L Free T4 (0.76-1.46) ng/dL TSH 3rd Generation 3.807 H (0.358-3.74) uIU/mL Urine Color (Yellow) Urine Appearance (Clear) Urine pH (5.0-8.0) Ur Specific [place] (1.005-1.030) Urine Protein (Negative) Urine Glucose (UA) (Negative) Urine Ketones (Negative) Urine Occult Blood (Negative) Urine Nitrite (Negative) Urine Bilirubin (Negative) Urine Urobilinogen (0.2-1.0) Ur Leukocyte Esterase (Negative) Urine RBC (0-5) /hpf Urine WBC (0-5) /hpf Ur Epithelial Cells (0-5) /hpf Urine Bacteria (FEW) /hpf Urine Mucus (FEW) /hpf Urine Yeast (Budding) (NOT SEEN) Urine HCG, Qual (NEGATIVE) Urine Opiates Screen (OEVXMR=301) Ur Buprenorphine Scrn (CUTOFF=10) Ur Oxycodone Screen (VDH8IG=703) Urine Methadone Screen (EPQFLI=659) Ur Propoxyphene Screen (BPUKJS=199) Ur Barbiturates Screen (AXJPBL=772) Ur Tricyclics Screen (IKXKLP=391) Ur Phencyclidine Scrn (CUTOFF=25) Ur Amphetamine Screen (OSQFGQ=276) U Methamphetamines Scrn (USRGKO=538) U Benzodiazepines Scrn (JNAMYU=887) U Cocaine Metab Screen (YGDKVW=695) U Marijuana (THC) Screen (CUTOFF=50) Ethyl Alcohol 0.00 (0.00) gm% Ketones (0.0-0.3) mM 12/18/18 12/18/18 12/18/18 Range/Units 02:40 03:10 03:20 WBC (3.98-10.04) K/mm3 RBC (3.98-5.22) M/mm3 Hgb (11.2-15.7) gm/L Hct (34.1-44.9) % MCV (79.4-94.8) fl MCH (25.6-32.2) pg MCHC (32.2-35.5) g/dl RDW Std Deviation (36.4-46.3) fL Plt Count (182-369) K/mm3 MPV (9.4-12.3) fl Neutrophils % (Manual) (40-60) % Band Neutrophils % (0-10) % Lymphocytes % (Manual) (20-40) % Atypical Lymphs % % Monocytes % (Manual) (2-10) % Eosinophils % (Manual) (0.7-5.8) % Basophils % (Manual) (0.1-1.2) Platelet Estimate RBC Morph Comment Puncture Site Rt radial ABG pH 7.34 L (7.35-7.45) ABG pCO2 48.4 H (35.0-45.0) mmHg ABG pO2 95.0 (80.0-100.0) mmHg ABG HCO3 25.7 (22.0-26.0) meq/L ABG O2 Saturation 96.9 (96.0-97.0) % ABG Base Excess 0.1 (-2-2.0) Darrell Test Positive Sodium (136-145) mEq/L Potassium (3.5-5.1) mEq/L Chloride (98-107) mEq/L Carbon Dioxide (21-32) mEq/L Anion Gap (5-15) BUN (7-18) mg/dL Creatinine (0.55-1.02) mg/dL Est Cr Clr Drug Dosing Estimated GFR (MDRD) (>60) mL/min BUN/Creatinine Ratio (14-18) Glucose (74-106) mg/dL POC Glucose (70-105) mg/dL Hemoglobin A1c (4.50-6.20) % Lactic Acid 4.9 H (0.4-2.0) mmol/L Calcium (8.5-10.1) mg/dL Magnesium (1.8-2.4) mg/dl Total Bilirubin (0.2-1.0) mg/dL AST (15-37) U/L ALT (14-59) U/L Alkaline Phosphatase (46-116) U/L Total Protein (6.4-8.2) g/dl Albumin (3.4-5.0) g/dl Globulin gm/dL Albumin/Globulin Ratio (1-2) Lipase (73-393) U/L Free T4 (0.76-1.46) ng/dL TSH 3rd Generation (0.358-3.74) uIU/mL Urine Color (Yellow) Urine Appearance (Clear) Urine pH (5.0-8.0) Ur Specific [place] (1.005-1.030) Urine Protein (Negative) Urine Glucose (UA) (Negative) Urine Ketones (Negative) Urine Occult Blood (Negative) Urine Nitrite (Negative) Urine Bilirubin (Negative) Urine Urobilinogen (0.2-1.0) Ur Leukocyte Esterase (Negative) Urine RBC (0-5) /hpf Urine WBC (0-5) /hpf Ur Epithelial Cells (0-5) /hpf Urine Bacteria (FEW) /hpf Urine Mucus (FEW) /hpf Urine Yeast (Budding) (NOT SEEN) Urine HCG, Qual (NEGATIVE) Urine Opiates Screen (CXMVVW=304) Ur Buprenorphine Scrn (CUTOFF=10) Ur Oxycodone Screen (WCA2PO=947) Urine Methadone Screen (DVMNHZ=310) Ur Propoxyphene Screen (PLGQEP=505) Ur Barbiturates Screen (SVPBLL=296) Ur Tricyclics Screen (XLGKZF=530) Ur Phencyclidine Scrn (CUTOFF=25) Ur Amphetamine Screen (GRDAVP=423) U Methamphetamines Scrn (KDBLKA=307) U Benzodiazepines Scrn (LUGKUW=815) U Cocaine Metab Screen (QECKMI=964) U Marijuana (THC) Screen (CUTOFF=50) Ethyl Alcohol (0.00) gm% Ketones 0.12 (0.0-0.3) mM 12/18/18 12/18/18 12/18/18 Range/Units 04:00 04:00 04:00 WBC (3.98-10.04) K/mm3 RBC (3.98-5.22) M/mm3 Hgb (11.2-15.7) gm/L Hct (34.1-44.9) % MCV (79.4-94.8) fl MCH (25.6-32.2) pg MCHC (32.2-35.5) g/dl RDW Std Deviation (36.4-46.3) fL Plt Count (182-369) K/mm3 MPV (9.4-12.3) fl Neutrophils % (Manual) (40-60) % Band Neutrophils % (0-10) % Lymphocytes % (Manual) (20-40) % Atypical Lymphs % % Monocytes % (Manual) (2-10) % Eosinophils % (Manual) (0.7-5.8) % Basophils % (Manual) (0.1-1.2) Platelet Estimate RBC Morph Comment Puncture Site ABG pH (7.35-7.45) ABG pCO2 (35.0-45.0) mmHg ABG pO2 (80.0-100.0) mmHg ABG HCO3 (22.0-26.0) meq/L ABG O2 Saturation (96.0-97.0) % ABG Base Excess (-2-2.0) Darrell Test Sodium (136-145) mEq/L Potassium (3.5-5.1) mEq/L Chloride (98-107) mEq/L Carbon Dioxide (21-32) mEq/L Anion Gap (5-15) BUN (7-18) mg/dL Creatinine (0.55-1.02) mg/dL Est Cr Clr Drug Dosing Estimated GFR (MDRD) (>60) mL/min BUN/Creatinine Ratio (14-18) Glucose (74-106) mg/dL POC Glucose (70-105) mg/dL Hemoglobin A1c (4.50-6.20) % Lactic Acid (0.4-2.0) mmol/L Calcium (8.5-10.1) mg/dL Magnesium (1.8-2.4) mg/dl Total Bilirubin (0.2-1.0) mg/dL AST (15-37) U/L ALT (14-59) U/L Alkaline Phosphatase (46-116) U/L Total Protein (6.4-8.2) g/dl Albumin (3.4-5.0) g/dl Globulin gm/dL Albumin/Globulin Ratio (1-2) Lipase (73-393) U/L Free T4 (0.76-1.46) ng/dL TSH 3rd Generation (0.358-3.74) uIU/mL Urine Color Yellow (Yellow) Urine Appearance Slt cloudy H (Clear) Urine pH 6.5 (5.0-8.0) Ur Specific [place] 1.025 (1.005-1.030) Urine Protein Trace H (Negative) Urine Glucose (UA) 2+ H (Negative) Urine Ketones Negative (Negative) Urine Occult Blood Trace-intact H (Negative) Urine Nitrite Negative (Negative) Urine Bilirubin Negative (Negative) Urine Urobilinogen 0.2 (0.2-1.0) Ur Leukocyte Esterase Negative (Negative) Urine RBC 10-20 H (0-5) /hpf Urine WBC 10-20 H (0-5) /hpf Ur Epithelial Cells 5-10 H (0-5) /hpf Urine Bacteria Moderate H (FEW) /hpf Urine Mucus Few (FEW) /hpf Urine Yeast (Budding) Few H (NOT SEEN) Urine HCG, Qual Negative (NEGATIVE) Urine Opiates Screen Negative (VNSEUU=509) Ur Buprenorphine Scrn Presumptive positive (CUTOFF=10) Ur Oxycodone Screen Negative (RTK9JA=133) Urine Methadone Screen Negative (TLJPIP=859) Ur Propoxyphene Screen Negative (OJRHOP=659) Ur Barbiturates Screen Negative (LQNLGP=173) Ur Tricyclics Screen Negative (MVEJPF=573) Ur Phencyclidine Scrn Negative (CUTOFF=25) Ur Amphetamine Screen Negative (BJALMJ=382) U Methamphetamines Scrn Negative (IPNERQ=197) U Benzodiazepines Scrn Negative (HUHZMS=761) U Cocaine Metab Screen Negative (JZNRJH=102) U Marijuana (THC) Screen Presumptive positive H (CUTOFF=50) Ethyl Alcohol (0.00) gm% Ketones (0.0-0.3) mM 12/18/18 12/18/18 12/18/18 Range/Units 04:23 06:03 08:27 WBC (3.98-10.04) K/mm3 RBC (3.98-5.22) M/mm3 Hgb (11.2-15.7) gm/L Hct (34.1-44.9) % MCV (79.4-94.8) fl MCH (25.6-32.2) pg MCHC (32.2-35.5) g/dl RDW Std Deviation (36.4-46.3) fL Plt Count (182-369) K/mm3 MPV (9.4-12.3) fl Neutrophils % (Manual) (40-60) % Band Neutrophils % (0-10) % Lymphocytes % (Manual) (20-40) % Atypical Lymphs % % Monocytes % (Manual) (2-10) % Eosinophils % (Manual) (0.7-5.8) % Basophils % (Manual) (0.1-1.2) Platelet Estimate RBC Morph Comment Puncture Site ABG pH (7.35-7.45) ABG pCO2 (35.0-45.0) mmHg ABG pO2 (80.0-100.0) mmHg ABG HCO3 (22.0-26.0) meq/L ABG O2 Saturation (96.0-97.0) % ABG Base Excess (-2-2.0) Darrell Test Sodium (136-145) mEq/L Potassium (3.5-5.1) mEq/L Chloride (98-107) mEq/L Carbon Dioxide (21-32) mEq/L Anion Gap (5-15) BUN (7-18) mg/dL Creatinine (0.55-1.02) mg/dL Est Cr Clr Drug Dosing Estimated GFR (MDRD) (>60) mL/min BUN/Creatinine Ratio (14-18) Glucose (74-106) mg/dL POC Glucose 221 H 263 H 350 H (70-105) mg/dL Hemoglobin A1c (4.50-6.20) % Lactic Acid (0.4-2.0) mmol/L Calcium (8.5-10.1) mg/dL Magnesium (1.8-2.4) mg/dl Total Bilirubin (0.2-1.0) mg/dL AST (15-37) U/L ALT (14-59) U/L Alkaline Phosphatase (46-116) U/L Total Protein (6.4-8.2) g/dl Albumin (3.4-5.0) g/dl Globulin gm/dL Albumin/Globulin Ratio (1-2) Lipase (73-393) U/L Free T4 (0.76-1.46) ng/dL TSH 3rd Generation (0.358-3.74) uIU/mL Urine Color (Yellow) Urine Appearance (Clear) Urine pH (5.0-8.0) Ur Specific [place] (1.005-1.030) Urine Protein (Negative) Urine Glucose (UA) (Negative) Urine Ketones (Negative) Urine Occult Blood (Negative) Urine Nitrite (Negative) Urine Bilirubin (Negative) Urine Urobilinogen (0.2-1.0) Ur Leukocyte Esterase (Negative) Urine RBC (0-5) /hpf Urine WBC (0-5) /hpf Ur Epithelial Cells (0-5) /hpf Urine Bacteria (FEW) /hpf Urine Mucus (FEW) /hpf Urine Yeast (Budding) (NOT SEEN) Urine HCG, Qual (NEGATIVE) Urine Opiates Screen (QIMCHE=059) Ur Buprenorphine Scrn (CUTOFF=10) Ur Oxycodone Screen (NXO5ZI=406) Urine Methadone Screen (AWHSKY=347) Ur Propoxyphene Screen (PNQGRM=146) Ur Barbiturates Screen (AQMGJI=317) Ur Tricyclics Screen (CTWWCD=276) Ur Phencyclidine Scrn (CUTOFF=25) Ur Amphetamine Screen (SKEPZL=926) U Methamphetamines Scrn (IMYFSJ=861) U Benzodiazepines Scrn (YRKTDO=068) U Cocaine Metab Screen (XRGJGV=894) U Marijuana (THC) Screen (CUTOFF=50) Ethyl Alcohol (0.00) gm% Ketones (0.0-0.3) mM 12/18/18 12/18/18 12/18/18 Range/Units 09:05 09:05 09:05 WBC (3.98-10.04) K/mm3 RBC (3.98-5.22) M/mm3 Hgb (11.2-15.7) gm/L Hct (34.1-44.9) % MCV (79.4-94.8) fl MCH (25.6-32.2) pg MCHC (32.2-35.5) g/dl RDW Std Deviation (36.4-46.3) fL Plt Count (182-369) K/mm3 MPV (9.4-12.3) fl Neutrophils % (Manual) (40-60) % Band Neutrophils % (0-10) % Lymphocytes % (Manual) (20-40) % Atypical Lymphs % % Monocytes % (Manual) (2-10) % Eosinophils % (Manual) (0.7-5.8) % Basophils % (Manual) (0.1-1.2) Platelet Estimate RBC Morph Comment Puncture Site ABG pH (7.35-7.45) ABG pCO2 (35.0-45.0) mmHg ABG pO2 (80.0-100.0) mmHg ABG HCO3 (22.0-26.0) meq/L ABG O2 Saturation (96.0-97.0) % ABG Base Excess (-2-2.0) Darrell Test Sodium 138 (136-145) mEq/L Potassium 6.3 H* (3.5-5.1) mEq/L Chloride 104 (98-107) mEq/L Carbon Dioxide 30 (21-32) mEq/L Anion Gap 10.3 (5-15) BUN 19 H (7-18) mg/dL Creatinine 0.8 (0.55-1.02) mg/dL Est Cr Clr Drug Dosing 92.76 Estimated GFR (MDRD) > 60 (>60) mL/min BUN/Creatinine Ratio 23.8 H (14-18) Glucose 322 H (74-106) mg/dL POC Glucose (70-105) mg/dL Hemoglobin A1c 10.40 H (4.50-6.20) % Lactic Acid 1.4 (0.4-2.0) mmol/L Calcium 8.9 (8.5-10.1) mg/dL Magnesium 2.3 (1.8-2.4) mg/dl Total Bilirubin (0.2-1.0) mg/dL AST (15-37) U/L ALT (14-59) U/L Alkaline Phosphatase (46-116) U/L Total Protein (6.4-8.2) g/dl Albumin (3.4-5.0) g/dl Globulin gm/dL Albumin/Globulin Ratio (1-2) Lipase (73-393) U/L Free T4 0.99 (0.76-1.46) ng/dL TSH 3rd Generation (0.358-3.74) uIU/mL Urine Color (Yellow) Urine Appearance (Clear) Urine pH (5.0-8.0) Ur Specific [place] (1.005-1.030) Urine Protein (Negative) Urine Glucose (UA) (Negative) Urine Ketones (Negative) Urine Occult Blood (Negative) Urine Nitrite (Negative) Urine Bilirubin (Negative) Urine Urobilinogen (0.2-1.0) Ur Leukocyte Esterase (Negative) Urine RBC (0-5) /hpf Urine WBC (0-5) /hpf Ur Epithelial Cells (0-5) /hpf Urine Bacteria (FEW) /hpf Urine Mucus (FEW) /hpf Urine Yeast (Budding) (NOT SEEN) Urine HCG, Qual (NEGATIVE) Urine Opiates Screen (ELCWAX=063) Ur Buprenorphine Scrn (CUTOFF=10) Ur Oxycodone Screen (XJQ7FV=505) Urine Methadone Screen (OFOVJJ=619) Ur Propoxyphene Screen (PAAAUK=096) Ur Barbiturates Screen (RDOXQX=595) Ur Tricyclics Screen (XAMCDP=200) Ur Phencyclidine Scrn (CUTOFF=25) Ur Amphetamine Screen (XEPOYM=667) U Methamphetamines Scrn (AQFCWE=058) U Benzodiazepines Scrn (LPVJJH=896) U Cocaine Metab Screen (JEBZNW=329) U Marijuana (THC) Screen (CUTOFF=50) Ethyl Alcohol (0.00) gm% Ketones (0.0-0.3) mM 12/18/18 12/18/18 12/18/18 Range/Units 11:00 12:52 14:25 WBC (3.98-10.04) K/mm3 RBC (3.98-5.22) M/mm3 Hgb (11.2-15.7) gm/L Hct (34.1-44.9) % MCV (79.4-94.8) fl MCH (25.6-32.2) pg MCHC (32.2-35.5) g/dl RDW Std Deviation (36.4-46.3) fL Plt Count (182-369) K/mm3 MPV (9.4-12.3) fl Neutrophils % (Manual) (40-60) % Band Neutrophils % (0-10) % Lymphocytes % (Manual) (20-40) % Atypical Lymphs % % Monocytes % (Manual) (2-10) % Eosinophils % (Manual) (0.7-5.8) % Basophils % (Manual) (0.1-1.2) Platelet Estimate RBC Morph Comment Puncture Site ABG pH (7.35-7.45) ABG pCO2 (35.0-45.0) mmHg ABG pO2 (80.0-100.0) mmHg ABG HCO3 (22.0-26.0) meq/L ABG O2 Saturation (96.0-97.0) % ABG Base Excess (-2-2.0) Darrell Test Sodium 143 (136-145) mEq/L Potassium 4.5 (3.5-5.1) mEq/L Chloride 110 H (98-107) mEq/L Carbon Dioxide 26 (21-32) mEq/L Anion Gap 11.5 (5-15) BUN 20 H (7-18) mg/dL Creatinine 0.7 (0.55-1.02) mg/dL Est Cr Clr Drug Dosing 106.59 Estimated GFR (MDRD) > 60 (>60) mL/min BUN/Creatinine Ratio 28.6 H (14-18) Glucose 109 H (74-106) mg/dL POC Glucose 372 H 275 H (70-105) mg/dL Hemoglobin A1c (4.50-6.20) % Lactic Acid (0.4-2.0) mmol/L Calcium 9.0 (8.5-10.1) mg/dL Magnesium (1.8-2.4) mg/dl Total Bilirubin (0.2-1.0) mg/dL AST (15-37) U/L ALT (14-59) U/L Alkaline Phosphatase (46-116) U/L Total Protein (6.4-8.2) g/dl Albumin (3.4-5.0) g/dl Globulin gm/dL Albumin/Globulin Ratio (1-2) Lipase (73-393) U/L Free T4 (0.76-1.46) ng/dL TSH 3rd Generation (0.358-3.74) uIU/mL Urine Color (Yellow) Urine Appearance (Clear) Urine pH (5.0-8.0) Ur Specific [place] (1.005-1.030) Urine Protein (Negative) Urine Glucose (UA) (Negative) Urine Ketones (Negative) Urine Occult Blood (Negative) Urine Nitrite (Negative) Urine Bilirubin (Negative) Urine Urobilinogen (0.2-1.0) Ur Leukocyte Esterase (Negative) Urine RBC (0-5) /hpf Urine WBC (0-5) /hpf Ur Epithelial Cells (0-5) /hpf Urine Bacteria (FEW) /hpf Urine Mucus (FEW) /hpf Urine Yeast (Budding) (NOT SEEN) Urine HCG, Qual (NEGATIVE) Urine Opiates Screen (JIKYSP=038) Ur Buprenorphine Scrn (CUTOFF=10) Ur Oxycodone Screen (UJI2WO=949) Urine Methadone Screen (LUCNDB=066) Ur Propoxyphene Screen (IVOQNA=050) Ur Barbiturates Screen (VIWACQ=089) Ur Tricyclics Screen (HVBSZU=695) Ur Phencyclidine Scrn (CUTOFF=25) Ur Amphetamine Screen (WORWSN=722) U Methamphetamines Scrn (WXCBPK=166) U Benzodiazepines Scrn (ATYWXJ=081) U Cocaine Metab Screen (PDTJPQ=334) U Marijuana (THC) Screen (CUTOFF=50) Ethyl Alcohol (0.00) gm% Ketones (0.0-0.3) mM Med Orders - Current: Current Medications Acetaminophen (Tylenol) 650 mg PO Q4H PRN PRN Reason: Pain Last Admin: 12/18/18 12:05 Dose: 650 mg Hydralazine HCl (Apresoline) 20 mg IVPUSH Q4H PRN PRN Reason: Hypertension Dextrose/Sodium Chloride (Dextrose 5%-Normal Saline) 1,000 mls @ 150 mls/hr IV ASDIRECTED [facility] Last Admin: 12/18/18 09:34 Dose: 150 mls/hr Insulin Human Lispro (Humalog) 0 unit SUBCUT QIDACANDBED [facility]; Protocol Last Admin: 12/18/18 11:04 Dose: 10 units Magnesium Sulfate (Pharmacy To Dose - Magnesium Replacement) 1 dose .XX ASDIRECTED [facility] Nicotine (Habitrol) 14 mg TRDERM DAILY [facility] Last Admin: 12/18/18 09:36 Dose: 14 mg Ondansetron HCl (Zofran Odt) 4 mg PO Q6H PRN PRN Reason: nausea, able to take PO Ondansetron HCl (Zofran) 4 mg IV Q6H PRN PRN Reason: Nausea/Vomiting Suboxone. 20 Mg 0 each PO DAILY [facility] Last Admin: 12/18/18 12:02 Dose: Not Given Potassium Chloride (Pharmacy To Dose - Potassium Replacement) 1 dose .XX ASDIRECTED [facility] Discontinued Medications Acetaminophen (Tylenol) 650 mg PO NOW ONE Stop: 12/18/18 05:31 Last Admin: 12/18/18 08:34 Dose: Not Given Dextrose/Water (Dextrose 50% In Water) 50 ml IVPUSH ASDIRECTED PRN PRN Reason: Hypoglycemia Dextrose/Sodium Chloride (Dextrose 5%-Normal Saline) 1,000 mls @ 125 mls/hr IV ASDIRECTED [facility] Last Infusion: 12/18/18 04:26 Dose: 50 mls/hr Magnesium Sulfate 2 gm/ Premix 50 mls @ 50 mls/hr IV ONETIME ONE Stop: 12/18/18 04:31 Last Admin: 12/18/18 03:59 Dose: 50 mls/hr Dextrose/Sodium Chloride (Dextrose 5%-Normal Saline) 1,000 mls @ 50 mls/hr IV ASDIRECTED [facility] Sodium Chloride (Normal Saline) 1,000 mls @ 250 mls/hr IV ASDIRECTED [facility] Ibuprofen (Motrin) 600 mg PO ONETIME ONE Stop: 12/18/18 03:26 Last Admin: 12/18/18 03:31 Dose: 600 mg Non-Formulary Medication (Insulin Degludec [Tresiba]) 34 unit SQ DAILY [facility] Potassium Chloride (Klor-Con M20) 40 meq PO ONETIME ONE Stop: 12/18/18 03:41 Last Admin: 12/18/18 03:59 Dose: 40 meq - Exam Quality Assessment: Reports: DVT Prophylaxis General: Reports: Alert, Oriented, Cooperative, No Acute Distress HEENT: Reports: Pupils Equal, Pupils Reactive, EOMI, Mucous Membr. Moist/[place] Neck: Reports: Supple Lungs: Reports: Clear to Auscultation, Normal Respiratory Effort Cardiovascular: Reports: Regular Rate, Regular Rhythm GI/Abdominal Exam: Normal Bowel Sounds, Soft, Non-Tender, No Organomegaly, No Distention, No Abnormal Bruit, No Mass, Pelvis Stable (Female) Exam: Deferred Rectal (Female) Exam: Deferred Back Exam: Reports: Normal Inspection Extremities: Normal Inspection, Normal Range of Motion, Non-Tender, No Pedal Edema, Normal Capillary Refill Skin: Reports: Warm, Dry, Intact Neurological: Reports: No New Focal Deficit Psy/Mental Status: Reports: Alert, Normal Affect, Normal Mood
== END 2018-12-18 16:32 | disposition home or self-care (01) ==
LOC: JD.ED 02:32 → JD.MS 05:32
PROVIDERS: ADMIT Internal Medicine; ATTEND Internal Medicine
DX: E10.649 Type 1 diabetes mellitus with hypoglycemia without coma (principal); E87.5 Hyperkalemia; M19.90 Unspecified osteoarthritis, unspecified site; N80.9 Endometriosis, unspecified; L30.9 Dermatitis, unspecified; L40.9 Psoriasis, unspecified; F17.210 Nicotine dependence, cigarettes, uncomplicated; E87.6 Hypokalemia; E83.42 Hypomagnesemia; R94.6 Abnormal results of thyroid function studies; Z91.040 Latex allergy status; Z88.5 Allergy status to narcotic agent
CPT/HCPCS: 36415; 36600; 70450; 71045; 80048; 80053; 80306; 81001; 81025; 82009; 82803; 82962; 83036; 83605; 83690; 83735; 84439; 84443; 85007; 85027; 87040; 87086; 96361; 96365; 99285; A9270; G0378; G0480; J1815; J7042; J3475

== ENCOUNTER 2019-05-13 13:23 | Emergency (ER) | payer MEDICAID ==
[2019-05-13] MEDS ORDERED: Sodium Chloride 0.9% 10 ML Syringe FLUSH PRN (13:57)
[2019-05-13] MEDS ORDERED: Ondansetron 4 MG/2 ML SDV IVPUSH ONE (13:59)
[2019-05-13] MEDS ORDERED: Sodium Chloride 0.9% 1,000 ML IV SCH (14:00)
[2019-05-13] MEDS ORDERED: HYDROmorphone 0.5 MG/0.5 ML Syringe IVPUSH ONE ×2 (14:15→15:32)
[2019-05-13] MEDS ORDERED: Metoclopramide 10 MG/2 ML SDV IVPUSH ONE (15:32)
--- NOTE | 2019-05-13 16:33 | EDM.PDOC ---
ED HPI GENERAL MEDICAL PROBLEM - General Chief Complaint: Gastrointestinal Problem Stated Complaint: VOMITING Time Seen by Provider: 05/13/19 13:39 Source of Information: Reports: Patient History Limitations: Reports: No Limitations - History of Present Illness INITIAL COMMENTS - FREE TEXT/NARRATIVE: The patient presents with nausea, vomiting and diarrhea with stomach cramps since this morning. She did not eat any bad food and she has not been around anyone who is sick. She has not traveled out of the country. She still has an appendix but no gallbladder. She is diabetic and her blood sugars were in the 200s. Onset: Gradual Duration: Hour(s): Location: Reports: Abdomen Quality: Reports: Other (Cramping) Severity: Moderate Improves with: Reports: None Worsens with: Reports: None Associated Symptoms: Reports: Headaches, Nausea/Vomiting. Denies: Chest Pain, Cough, Fever/Chills, Shortness of Breath Abdominal Pain Score (Numeric/FACES): 10 - Related Data Allergies Allergy/AdvReac Type Severity Reaction Status Date / Time latex Allergy Hives Verified 05/13/19 13:45 tramadol Allergy Hives Verified 05/13/19 13:45 Home Meds: Home Meds Insulin Aspart [Novolog Flexpen] See Protocol SUBCNJ TIDMEALS 01/05/18 [History] Insulin Degludec [Tresiba] 34 unit SQ DAILY 12/18/18 [History] Buprenorphine HCl/Naloxone HCl [Suboxone 4 mg-1 mg Sl Film] 05/13/19 [History] Magnesium Oxide [Magnesium] 400 mg PO DAILY #30 capsule 05/13/19 [Rx] Ondansetron [Zofran ODT] 4 mg PO Q6H PRN #20 tab.dis 05/13/19 [Rx] Past Medical History Cardiovascular History: Reports: Hypertension Respiratory History: Reports: Asthma 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 History: Reports: Acute Renal Failure INSTITUTIONAL NUTRITION CONSULTANT History: Reports: Endometriosis, Other INSTITUTIONAL NUTRITION CONSULTANT History: x5 Musculoskeletal History: Reports: Arthritis, Back Pain, Chronic Neurological History: Reports: Migraines, Seizure Other Neuro History: Diabetic seizure Psychiatric History: Reports: Addiction 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 Endocrine/Metabolic History: Reports: Diabetes, Type I Hematologic History: Reports: Blood Transfusion(s) Other Hematologic History: ammenoriah Dermatologic History: Reports: Eczema, Psoriasis - Infectious Disease History Infectious Disease History: Reports: MRSA Other Infectious Disease History: MRSA-2 yrs ago - Past Surgical History GI Surgical History: Reports: Cholecystectomy Female Surgical History: Reports: D&C Social & Family History - Family History Family Medical History: Noncontributory - Tobacco Use Smoking Status *Q: Unknown Ever Smoked - Caffeine Use Caffeine Use: Reports: Soda Other Caffeine Use: drinks mellow yellow daily about 3 cans - Living Situation & Occupation Living situation: Reports: Single, with Family Occupation: Unemployed ED ROS GENERAL - Review of Systems Review Of Systems: See Below Constitutional: Reports: No Symptoms HEENT: Reports: No Symptoms Respiratory: Reports: No Symptoms Cardiovascular: Reports: No Symptoms Endocrine: Reports: No Symptoms GI/Abdominal: Reports: Abdominal Pain, Diarrhea, Nausea, Vomiting : Reports: No Symptoms Musculoskeletal: Reports: No Symptoms ED EXAM, GI/ABD - Physical Exam Exam: See Below Exam Limited By: No Limitations General Appearance: Alert, No Apparent Distress Ears: Normal External Exam Nose: Normal Inspection Head: Atraumatic, Normocephalic Neck: Normal Inspection Respiratory/Chest: No Respiratory Distress, Lungs Clear, Normal Breath Sounds Cardiovascular: Regular Rate, Rhythm, No Edema, No Murmur GI/Abdominal Exam: Soft, No Organomegaly, No Mass, Tender (Mild generalized tenderness) Course - Vital Signs Last Recorded V/S: Last Vital Signs Temp 98.5 F 05/13/19 13:45 Pulse 102 H 05/13/19 13:45 Resp 16 05/13/19 13:45 BP 168/86 H 05/13/19 13:45 Pulse Ox 99 05/13/19 13:45 - Orders/Labs/Meds Orders: Active Orders 24 hr Category Date Time Status Cardiac Monitoring [RC] . DIRECTED Care 05/13/19 13:57 Active Peripheral IV Care [RC] . DIRECTED Care 05/13/19 13:57 Active Sodium Chloride 0.9% [Normal Saline] 1,000 ml Med 05/13/19 14:00 Active IV .BOLUS Sodium Chloride 0.9% [Saline Flush] Med 05/13/19 13:57 Active 10 ml FLUSH ASDIRECTED PRN Peripheral IV Insertion Adult [OM.PC] Stat Oth 05/13/19 13:57 Ordered Medication Orders Sodium Chloride (Normal Saline) 1,000 mls @ 1,000 mls/hr IV .BOLUS TONIO Last Admin: 05/13/19 14:30 Dose: 1,000 mls/hr Sodium Chloride (Saline Flush) 10 ml FLUSH ASDIRECTED PRN PRN Reason: Keep Vein Open Last Admin: 05/13/19 14:24 Dose: 10 ml Labs: Laboratory Tests 05/13/19 05/13/19 05/13/19 Range/Units 14:19 15:10 15:10 WBC 9.09 (3.98-10.04) K/mm3 RBC 4.58 (3.98-5.22) M/mm3 Hgb 13.6 (11.2-15.7) gm/L Hct 39.0 (34.1-44.9) % MCV 85.2 D (79.4-94.8) fl MCH 29.7 (25.6-32.2) pg MCHC 34.9 (32.2-35.5) g/dl RDW Std Deviation 35.9 L (36.4-46.3) fL Plt Count 168 L (182-369) K/mm3 MPV 9.9 (9.4-12.3) fl Neut % (Auto) 85.6 H (34.0-71.1) % Lymph % (Auto) 10.8 L (19.3-51.7) % [place] % (Auto) 3.2 L (4.7-12.5) % Eos % (Auto) 0.1 L (0.7-5.8) Baso % (Auto) 0.2 (0.1-1.2) % Neut # (Auto) 7.78 H (1.56-6.13) K/mm3 Lymph # (Auto) 0.98 L (1.18-3.74) K/mm3 [place] # (Auto) 0.29 (0.24-0.36) K/mm3 Eos # (Auto) 0.01 L (0.04-0.36) K/mm3 Baso # (Auto) 0.02 (0.01-0.08) K/mm3 Manual Slide Review Normal smear VBG pH 7.38 (7.30-7.40) Sodium 143 (136-145) mEq/L Potassium 4.0 (3.5-5.1) mEq/L Chloride 106 (98-107) mEq/L Carbon Dioxide 22 (21-32) mEq/L Anion Gap 19.0 H (5-15) BUN 9 (7-18) mg/dL Creatinine 0.5 L (0.55-1.02) mg/dL Est Cr Clr Drug Dosing TNP Estimated GFR (MDRD) > 60 (>60) mL/min BUN/Creatinine Ratio 18.0 (14-18) Glucose 215 H (74-106) mg/dL Serum Osmolality 294 (280-300) mosm/kg Lactic Acid (0.4-2.0) mmol/L Calcium 8.3 L (8.5-10.1) mg/dL Magnesium 1.5 L (1.8-2.4) mg/dl Total Bilirubin 0.7 (0.2-1.0) mg/dL AST 52 H (15-37) U/L ALT 47 (14-59) U/L Alkaline Phosphatase 143 H (46-116) U/L Total Protein 5.6 L (6.4-8.2) g/dl Albumin 3.1 L (3.4-5.0) g/dl Globulin 2.5 gm/dL Albumin/Globulin Ratio 1.2 (1-2) Urine Color (Yellow) Urine Appearance (Clear) Urine pH (5.0-8.0) Ur Specific [place] (1.005-1.030) Urine Protein (Negative) Urine Glucose (UA) (Negative) Urine Ketones (Negative) Urine Occult Blood (Negative) Urine Nitrite (Negative) Urine Bilirubin (Negative) Urine Urobilinogen (0.2-1.0) Ur Leukocyte Esterase (Negative) Urine RBC (0-5) /hpf Urine WBC (0-5) /hpf Ur Squamous Epith Cells (0-5) /hpf Urine Bacteria (FEW) /hpf Urine Mucus (FEW) /hpf Ketones (0.0-0.3) mM 05/13/19 05/13/19 05/13/19 Range/Units 15:10 15:10 16:00 WBC (3.98-10.04) K/mm3 RBC (3.98-5.22) M/mm3 Hgb (11.2-15.7) gm/L Hct (34.1-44.9) % MCV (79.4-94.8) fl MCH (25.6-32.2) pg MCHC (32.2-35.5) g/dl RDW Std Deviation (36.4-46.3) fL Plt Count (182-369) K/mm3 MPV (9.4-12.3) fl Neut % (Auto) (34.0-71.1) % Lymph % (Auto) (19.3-51.7) % [place] % (Auto) (4.7-12.5) % Eos % (Auto) (0.7-5.8) Baso % (Auto) (0.1-1.2) % Neut # (Auto) (1.56-6.13) K/mm3 Lymph # (Auto) (1.18-3.74) K/mm3 [place] # (Auto) (0.24-0.36) K/mm3 Eos # (Auto) (0.04-0.36) K/mm3 Baso # (Auto) (0.01-0.08) K/mm3 Manual Slide Review VBG pH (7.30-7.40) Sodium (136-145) mEq/L Potassium (3.5-5.1) mEq/L Chloride (98-107) mEq/L Carbon Dioxide (21-32) mEq/L Anion Gap (5-15) BUN (7-18) mg/dL Creatinine (0.55-1.02) mg/dL Est Cr Clr Drug Dosing Estimated GFR (MDRD) (>60) mL/min BUN/Creatinine Ratio (14-18) Glucose (74-106) mg/dL Serum Osmolality (280-300) mosm/kg Lactic Acid 1.5 (0.4-2.0) mmol/L Calcium (8.5-10.1) mg/dL Magnesium (1.8-2.4) mg/dl Total Bilirubin (0.2-1.0) mg/dL AST (15-37) U/L ALT (14-59) U/L Alkaline Phosphatase (46-116) U/L Total Protein (6.4-8.2) g/dl Albumin (3.4-5.0) g/dl Globulin gm/dL Albumin/Globulin Ratio (1-2) Urine Color Yellow (Yellow) Urine Appearance Clear (Clear) Urine pH 7.0 (5.0-8.0) Ur Specific [place] 1.020 (1.005-1.030) Urine Protein 1+ H (Negative) Urine Glucose (UA) 2+ H (Negative) Urine Ketones 2+ H (Negative) Urine Occult Blood 2+ H (Negative) Urine Nitrite Negative (Negative) Urine Bilirubin Negative (Negative) Urine Urobilinogen 0.2 (0.2-1.0) Ur Leukocyte Esterase Negative (Negative) Urine RBC 20-30 H (0-5) /hpf Urine WBC 0-5 (0-5) /hpf Ur Squamous Epith Cells 0-5 (0-5) /hpf Urine Bacteria Few (FEW) /hpf Urine Mucus Not seen (FEW) /hpf Ketones 1.03 (0.0-0.3) mM Meds: Medications Generic Name Dose Route Start Last Admin Trade Name Freq PRN Reason Stop Dose Admin Sodium Chloride 1,000 mls @ 1,000 mls/hr 05/13/19 14:00 05/13/19 14:30 Normal Saline IV 1,000 mls/hr .BOLUS TONIO Administration Sodium Chloride 10 ml 05/13/19 13:57 05/13/19 14:24 Saline Flush FLUSH 10 ml ASDIRECTED PRN Administration Keep Vein Open Discontinued Medications Generic Name Dose Route Start Last Admin Trade Name Freq PRN Reason Stop Dose Admin Hydromorphone HCl 0.5 mg 05/13/19 14:15 05/13/19 14:27 Dilaudid IVPUSH 05/13/19 14:16 0.5 mg ONETIME ONE Administration Hydromorphone HCl 0.5 mg 05/13/19 15:32 05/13/19 15:38 Dilaudid IVPUSH 05/13/19 15:33 0.5 mg ONETIME ONE Administration Metoclopramide HCl 10 mg 05/13/19 15:32 05/13/19 15:40 Reglan IVPUSH 05/13/19 15:33 10 mg ONETIME ONE Administration Ondansetron HCl 4 mg 05/13/19 13:59 05/13/19 14:25 Zofran IVPUSH 05/13/19 14:00 4 mg ONETIME ONE Administration - Re-Assessments/Exams Free Text/Narrative Re-Assessment/Exam: 05/13/19 16:34 I ordered an IV NS 1L bolus, zofran 4mg IV, dilaudid 05/13/19 16:38 Her CBC looks good. Her pH was normal at 7.38. Her anion gap was 19. Her glucose was 215. Her lactic acid was normal. Her magnesium was low at 1.5. Her AST was elevated at 52. She had more pain so I gave dilaudid and reglan. I will discharge her home. Departure - Departure Time of Disposition: 16:45 Disposition: Home, Self-Care 01 Condition: Good Clinical Impression: Gastroenteritis, Hypomagnesemia - Discharge Information *PRESCRIPTION DRUG MONITORING PROGRAM REVIEWED*: Not Applicable *COPY OF PRESCRIPTION DRUG MONITORING REPORT IN PATIENT TANNER: Not Applicable Prescriptions: Magnesium Oxide [Magnesium] 400 mg PO DAILY #30 capsule Ondansetron [Zofran ODT] 4 mg PO Q6H PRN #20 tab.dis PRN Reason: Nausea\vomiting Referrals: Fanta Canseco PA-C [Primary Care Provider] - 1 Week Forms: ED Department Discharge Additional Instructions: Drink plenty of fluids. Take zofran every 6 hours as needed for nausea and vomiting. Take the magnesium daily and have that rechecked in a week. Please return if you are worse. - My Orders Last 24 Hours: My Active Orders 05/13/19 13:57 Cardiac Monitoring [RC] . DIRECTED Peripheral IV Care [RC] . DIRECTED Sodium Chloride 0.9% [Saline Flush] 10 ml FLUSH ASDIRECTED PRN Peripheral IV Insertion Adult [OM.PC] Stat 05/13/19 14:00 Sodium Chloride 0.9% [Normal Saline] 1,000 ml IV .BOLUS - Assessment/Plan Last 24 Hours: My Active Orders 05/13/19 13:57 Cardiac Monitoring [RC] . DIRECTED Peripheral IV Care [RC] . DIRECTED Sodium Chloride 0.9% [Saline Flush] 10 ml FLUSH ASDIRECTED PRN Peripheral IV Insertion Adult [OM.PC] Stat 05/13/19 14:00 Sodium Chloride 0.9% [Normal Saline] 1,000 ml IV .BOLUS
== END 2019-05-13 16:15 | disposition home or self-care (01) ==
LOC: JD.ED 13:23
DX: K52.9 Noninfective gastroenteritis and colitis, unspecified (principal); E83.42 Hypomagnesemia; I10 Essential (primary) hypertension; E10.9 Type 1 diabetes mellitus without complications; M19.90 Unspecified osteoarthritis, unspecified site; Z90.49 Acquired absence of other specified parts of digestive tract; Z88.5 Allergy status to narcotic agent; Z91.040 Latex allergy status
CPT/HCPCS: 36415; 80053; 81001; 82009; 82800; 83605; 83735; 83930; 85025; 96361; 96374; 96375; 96376; 99284; J1170; J2405; J2765; J7040

== ENCOUNTER 2019-08-18 11:03 | Emergency (ER) | payer MEDICAID ==
[2019-08-18] MEDS ORDERED: Ondansetron 4 MG/2 ML SDV IVPUSH ONE ×2 (12:24→13:20)
[2019-08-18] MEDS ORDERED: Sodium Chloride 0.9% 1,000 ML IV ONE (12:24)
--- NOTE | 2019-08-18 12:39 | EDM.PDOC ---
ED HPI GENERAL MEDICAL PROBLEM - General Chief Complaint: Gastrointestinal Problem Stated Complaint: VOMITTING Time Seen by Provider: 08/18/19 12:11 Source of Information: Reports: Patient History Limitations: Reports: No Limitations - History of Present Illness INITIAL COMMENTS - FREE TEXT/NARRATIVE: Ms. Red is a 34-year-old woman with a past medical history significant for type 1 diabetes and prior dependency on both methamphetamine and Dilaudid, who states that she was diagnosed with a UTI last week in the clinic. She was prescribed ciprofloxacin twice a day for 5 days, which she states she took as prescribed. She states that she then developed nausea yesterday and vomiting today, along with upper abdominal pain. She developed watery diarrhea today. No recent fever. The patient states that she has had recurrent symptoms of nausea, vomiting, watery diarrhea, and abdominal pain for the past couple of months. She underwent an EGD on 08/03/2019, however, the EGD report indicates that she had a full stomach, because she had eaten breakfast that morning. She did not have a hiatal hernia, and there was no evidence of Muller esophagus or esophagitis. No gastric ulcerations were found. Her surgeon noted that she is a marijuana user, but she was convinced that her marijuana was not related to her vomiting. She told him that she had tried marijuana cessation, but that it did not affect what appeared to be cyclic vomiting. The patient states that she checks her blood glucose about once a day, with an normal blood glucose around 200. She states that her blood glucose was 220 this morning. The patient's PCP is XI Henao. Her inpatient care manager rn is Aspen Reyez NP. Treatments ELECTRICIAN MAINTENANCE: Reports: Other (see below) Other Treatments ELECTRICIAN MAINTENANCE: hayder johnson Abdomen Pain Score (Numeric/FACES): 9 - Related Data Allergies Allergy/AdvReac Type Severity Reaction Status Date / Time latex Allergy Hives Verified 08/23/19 02:35 tramadol Allergy Hives Verified 08/23/19 02:35 Home Meds: Home Meds Insulin Aspart [Novolog Flexpen] See Protocol SUBCNJ TIDMEALS 01/05/18 [History] Insulin Degludec [Tresiba] 27 unit SQ DAILY 12/18/18 [History] Buprenorphine HCl/Naloxone HCl [Suboxone 4 mg-1 mg Sl Film] 8 mg PO BID [History] Metoclopramide HCl [Reglan] 10 mg PO QID PRN #15 tablet 06/27/19 [Rx] Ondansetron [Zofran ODT] 4 mg PO Q6H PRN #20 tab.dis 06/27/19 [Rx] Citalopram Hydrobromide [Celexa] 20 mg PO DAILY 07/30/19 [History] Lisinopril 5 mg PO DAILY 07/30/19 [History] Pantoprazole [ProTONIX] 20 mg PO DAILY 07/30/19 [History] Past Medical History Cardiovascular History: Reports: Blood Clots/VTE/DVT Gastrointestinal History: Reports: GERD 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 History: Reports: Acute Renal Failure 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: Reports: Endometriosis, (x 5) Musculoskeletal History: Reports: Arthritis Neurological History: Reports: Migraines Psychiatric History: Reports: Addiction (methamphetamine, Dilaudid), Anxiety, Depression Endocrine/Metabolic History: Reports: Diabetes, Type I Hematologic History: Reports: Blood Transfusion(s) Other Immunologic History: risk for HIV from IV drug use, MRSA Dermatologic History: Reports: Eczema, Psoriasis - Infectious Disease History Infectious Disease History: Reports: MRSA - Past Surgical History HEENT Surgical History: Reports: Oral Surgery (edentulous) GI Surgical History: Reports: Cholecystectomy (around 2014), Colonoscopy (x 1), EGD (x 1), Small Bowel (ileostomy with reversal) Female Surgical History: Reports: D&C (x 1) Social & Family History - Family History Family Medical History: Noncontributory - Tobacco Use Smoking Status *Q: Current Every Day Smoker Years of Tobacco use: 20 Packs/Tins Daily: 1 Packs/Tins Daily Comment: Down from 2 ppd - Caffeine Use Caffeine Use: Reports: Coffee, Soda Other Caffeine Use: drinks mellow yellow daily about 3 cans - Alcohol Use Alcohol Use History: No - Recreational Drug Use Recreational Drug Use: Yes Drug Use in Last 12 Months: Yes Recreational Drug Type: Reports: Dilaudid (last injected early 2017), Marijuana/ Hashish (smokes daily), Methamphetamine (last smoked/injected 2016), Other (see below) (Opioids - last took early 2017) - Living Situation & Occupation Living situation: Reports: Single, with Family (Brother, 2 kids) Occupation: Unemployed ED ROS GENERAL - Review of Systems Review Of Systems: ROS reveals no pertinent complaints other than HPI. Musculoskeletal: Reports: Back Pain (chronic) ED EXAM, GI/ABD - Physical Exam Exam: See Below Exam Limited By: No Limitations General Appearance: Alert, Mild Distress (vomited x 1 during eval), Thin Eyes: Bilateral: Normal Appearance, EOMI Ears: Normal External Exam, Hearing Grossly Normal Nose: Normal Inspection Throat/Mouth: Normal Inspection, Normal Lips, Normal Voice, No Airway Compromise Head: Atraumatic, Normocephalic Neck: Normal Inspection, Full Range of Motion Respiratory/Chest: No Respiratory Distress, Lungs Clear, Normal Breath Sounds, No Accessory Muscle Use Cardiovascular: Normal Peripheral Pulses, Regular Rate, Rhythm, No Edema, No Gallop, No JVD, No Murmur, No Rub GI/Abdominal Exam: Normal Bowel Sounds, Soft, Non-Tender, No Organomegaly, No Distention, No Abnormal Bruit, No Mass (Female) Exam: Deferred Rectal (Female) Exam: Deferred Back Exam: Normal Inspection, Full Range of Motion. No: CVA Tenderness (L), CVA Tenderness (R) Extremities: Normal Inspection, Normal Range of Motion, No Pedal Edema, Normal Capillary Refill Neurological: Alert, Oriented, Normal Cognition, No Motor/Sensory Deficits Psychiatric: Normal Affect Skin Exam: Warm, Dry, Intact, Normal Color, No Rash Course - Vital Signs Last Recorded V/S: Last Vital Signs Temp 36.2 C 08/18/19 11:14 Pulse 67 08/18/19 11:14 Resp 20 08/18/19 11:14 BP 155/94 H 08/18/19 11:14 Pulse Ox 98 08/18/19 11:14 - Orders/Labs/Meds Labs: Laboratory Tests 08/18/19 08/18/19 08/18/19 Range/Units 12:38 12:40 12:40 WBC (3.98-10.04) K/mm3 RBC (3.98-5.22) M/mm3 Hgb (11.2-15.7) gm/dl Hct (34.1-44.9) % MCV (79.4-94.8) fl MCH (25.6-32.2) pg MCHC (32.2-35.5) g/dl RDW Std Deviation (36.4-46.3) fL Plt Count (182-369) K/mm3 MPV (9.4-12.3) fl Neutrophils % (Manual) (40-60) % Band Neutrophils % (0-10) % Lymphocytes % (Manual) (20-40) % Atypical Lymphs % % Monocytes % (Manual) (2-10) % Eosinophils % (Manual) (0.7-5.8) % Basophils % (Manual) (0.1-1.2) Platelet Estimate RBC Morph Comment Sodium (136-145) mEq/L Potassium (3.5-5.1) mEq/L Chloride (98-107) mEq/L Carbon Dioxide (21-32) mEq/L Anion Gap (5-15) BUN (7-18) mg/dL Creatinine (0.55-1.02) mg/dL Est Cr Clr Drug Dosing mL/min Estimated GFR (MDRD) (>60) mL/min BUN/Creatinine Ratio (14-18) Glucose (74-106) mg/dL Calcium (8.5-10.1) mg/dL Magnesium (1.8-2.4) mg/dl Total Bilirubin (0.2-1.0) mg/dL AST (15-37) U/L ALT (14-59) U/L Alkaline Phosphatase (46-116) U/L Total Protein (6.4-8.2) g/dl Albumin (3.4-5.0) g/dl Globulin gm/dL Albumin/Globulin Ratio (1-2) Urine Color Yellow (Yellow) Urine Appearance Clear (Clear) Urine pH 5.5 (5.0-8.0) Ur Specific [place] 1.015 (1.005-1.030) Urine Protein 1+ H (Negative) Urine Glucose (UA) 2+ H (Negative) Urine Ketones 2+ H (Negative) Urine Occult Blood 2+ H (Negative) Urine Nitrite Negative (Negative) Urine Bilirubin Negative (Negative) Urine Urobilinogen 0.2 (0.2-1.0) Ur Leukocyte Esterase Negative (Negative) Urine RBC 0-5 (0-5) /hpf Urine WBC 0-5 (0-5) /hpf Ur Squamous Epith Cells Not seen (0-5) /hpf Urine Bacteria Not seen (FEW) /hpf Urine Mucus Not seen (FEW) /hpf Urine HCG, Qual Negative (NEGATIVE) Urine Opiates Screen (FQVXTC=562) Ur Buprenorphine Scrn (CUTOFF=10) Ur Oxycodone Screen (PHU5FG=748) Urine Methadone Screen (HGRMEV=531) Ur Propoxyphene Screen (FBKTSS=229) Ur Barbiturates Screen (KJZMVT=595) Ur Tricyclics Screen (QFCLOU=002) Ur Phencyclidine Scrn (CUTOFF=25) Ur Amphetamine Screen (PQFOHH=573) U Methamphetamines Scrn (IKZRBC=827) U Benzodiazepines Scrn (VBSWHQ=496) U Cocaine Metab Screen (WLKANO=484) U Marijuana (THC) Screen (CUTOFF=50) C.difficile 027-NAP1-B1 Presumptive negative C. difficile Tox (PCR) Negative 08/18/19 08/18/19 08/18/19 Range/Units 12:40 13:07 13:07 WBC 9.34 (3.98-10.04) K/mm3 RBC 5.20 (3.98-5.22) M/mm3 Hgb 15.4 D (11.2-15.7) gm/dl Hct 45.0 H (34.1-44.9) % MCV 86.5 (79.4-94.8) fl MCH 29.6 (25.6-32.2) pg MCHC 34.2 (32.2-35.5) g/dl RDW Std Deviation 39.7 (36.4-46.3) fL Plt Count 174 L (182-369) K/mm3 MPV 10.7 (9.4-12.3) fl Neutrophils % (Manual) 79 H (40-60) % Band Neutrophils % 0 (0-10) % Lymphocytes % (Manual) 18 L (20-40) % Atypical Lymphs % 0 % Monocytes % (Manual) 3 (2-10) % Eosinophils % (Manual) 0 L (0.7-5.8) % Basophils % (Manual) 0 L (0.1-1.2) Platelet Estimate Adequate RBC Morph Comment Normal Sodium 144 (136-145) mEq/L Potassium 3.3 L D (3.5-5.1) mEq/L Chloride 106 (98-107) mEq/L Carbon Dioxide 27 (21-32) mEq/L Anion Gap 14.3 (5-15) BUN 7 (7-18) mg/dL Creatinine 1.0 (0.55-1.02) mg/dL Est Cr Clr Drug Dosing 73.51 mL/min Estimated GFR (MDRD) > 60 (>60) mL/min BUN/Creatinine Ratio 7.0 L (14-18) Glucose 329 H (74-106) mg/dL Calcium 8.9 (8.5-10.1) mg/dL Magnesium 1.7 L (1.8-2.4) mg/dl Total Bilirubin 0.4 (0.2-1.0) mg/dL AST 52 H (15-37) U/L ALT 48 (14-59) U/L Alkaline Phosphatase 104 (46-116) U/L Total Protein 6.7 (6.4-8.2) g/dl Albumin 3.7 (3.4-5.0) g/dl Globulin 3.0 gm/dL Albumin/Globulin Ratio 1.2 (1-2) Urine Color (Yellow) Urine Appearance (Clear) Urine pH (5.0-8.0) Ur Specific [place] (1.005-1.030) Urine Protein (Negative) Urine Glucose (UA) (Negative) Urine Ketones (Negative) Urine Occult Blood (Negative) Urine Nitrite (Negative) Urine Bilirubin (Negative) Urine Urobilinogen (0.2-1.0) Ur Leukocyte Esterase (Negative) Urine RBC (0-5) /hpf Urine WBC (0-5) /hpf Ur Squamous Epith Cells (0-5) /hpf Urine Bacteria (FEW) /hpf Urine Mucus (FEW) /hpf Urine HCG, Qual (NEGATIVE) Urine Opiates Screen Negative (ODIALQ=173) Ur Buprenorphine Scrn Presumptive positive (CUTOFF=10) Ur Oxycodone Screen Negative (RNJ0KG=096) Urine Methadone Screen Negative (ERYXOA=726) Ur Propoxyphene Screen Negative (UORDJP=743) Ur Barbiturates Screen Negative (WGQOBL=887) Ur Tricyclics Screen Negative (LYFARX=083) Ur Phencyclidine Scrn Negative (CUTOFF=25) Ur Amphetamine Screen Negative (KITPDD=328) U Methamphetamines Scrn Negative (QSGWUN=601) U Benzodiazepines Scrn Negative (SDFSLJ=127) U Cocaine Metab Screen Negative (JFKKKF=824) U Marijuana (THC) Screen Presumptive positive H (CUTOFF=50) C.difficile 027-NAP1-B1 C. difficile Tox (PCR) Meds: Medications Discontinued Medications Generic Name Dose Route Start Last Admin Trade Name Carlyle PRN Reason Stop Dose Admin Sodium Chloride 1,000 mls @ 999 mls/hr 08/18/19 12:24 08/18/19 12:35 Normal Saline IV 08/18/19 13:24 999 mls/hr ONETIME ONE Administration Insulin Human Lispro 4 unit 08/18/19 14:21 08/18/19 14:40 Humalog SUBCUT 08/18/19 14:22 Not Given ONETIME STA Metoclopramide HCl 10 mg 08/18/19 14:24 08/18/19 14:31 Reglan IVPUSH 08/18/19 14:25 10 mg ONETIME STA Administration Ondansetron HCl 4 mg 08/18/19 12:24 08/18/19 12:30 Zofran IVPUSH 08/18/19 12:25 4 mg ONETIME ONE Administration Ondansetron HCl 4 mg 08/18/19 13:20 08/18/19 13:27 Zofran IVPUSH 08/18/19 13:21 4 mg ONETIME ONE Administration - Re-Assessments/Exams Free Text/Narrative Re-Assessment/Exam: 08/18/19 12:43 By the patient's history, she has cyclic vomiting syndrome. She believes that she has gastroparesis, however, the EGD that was performed on 08/03/2019, while limited because she had eaten breakfast that morning, found no evidence of GERD or suggestion of gastroparesis. A gastric emptying study is still needed. Dr. Kendrick opined that her cyclic vomiting syndrome could be due to cannabis hyperemesis syndrome, as the patient smokes marijuana daily, however, the patient related that she was convinced that her vomiting was not related to her marijuana use. For today's purposes, I have ordered blood work to make sure that she has not suffered any significant electrolyte shifts as a result of her cyclic vomiting, along with a urinalysis, urine test, and urine drug screen. Because of the patient's report of watery diarrhea today, I have also ordered a stool for C. difficile by PCR. In the meantime, the patient will be given IV Zofran and IV fluid. She has demanded pain medication, however, the patient has a well- documented history of opioid abuse and drug-seeking behavior, and since opioids will only worsen her nausea, I do not see an indication for ordering opioids. 08/18/19 14:16 Notified by Stephania BAEZ that the patient would like to go home. The patient's CBC is remarkable for a Hct of 45.0, and platelets depressed at 174,000. The remainder of her CBC is unremarkable. Her CMP is remarkable for potassium slightly depressed at 3.3 and a blood glucose elevated at 329. Her AST is slightly elevated at 52. The remainder of her CMP is unremarkable. Her magnesium is slightly depressed at 1.7. Her urinalysis is unremarkable. Her urine test is negative. Her urine drug screen is positive for both buprenorphine and marijuana. Her stool C. difficile by PCR is negative. 08/18/19 14:25 Test results discussed with the patient. The patient states that she has some potassium and magnesium at home, therefore declined an offer to replace them orally here. The patient agreed, however, to receive subcutaneous insulin here in the ED. For a blood glucose of 329, she would ordinarily take 4 units of NovoLog (we carry Humalog). In addition, the patient will receive 10 mg of IV Reglan, however, I explained to the patient why we cannot give multiple doses of anti-nausea medicines, and she appeared to understand that. After the patient receives the Humalog and Reglan, she can be discharged home. 08/18/19 14:45 Notified that the patient received the Reglan, but refused the Humalog, and was preparing to leave without waiting for her discharge paperwork. I have finished her discharge instructions, but I am not sure if she has waited to receive them. Departure - Departure Time of Disposition: 14:35 Disposition: Home, Self-Care 01 Condition: Good Clinical Impression: Cyclic vomiting syndrome, Cannabis hyperemesis syndrome concurrent with and due to cannabis abuse, Hyperglycemia due to type 1 diabetes mellitus, Hypokalemia, Hypomagnesemia - Discharge Information *PRESCRIPTION DRUG MONITORING PROGRAM REVIEWED*: Not Applicable *COPY OF PRESCRIPTION DRUG MONITORING REPORT IN PATIENT TANNER: Not Applicable Referrals: Fanta Canseco PA-C [Primary Care Provider] - Aspen Reyez NP [Ordering Only Provider] - Forms: ED Department Discharge Additional Instructions: You were seen in the emergency room for recurrent nausea and vomiting. Workup in the ER included blood work, a urinalysis, urine test, a urine drug screen, and a stool C. difficile test. Your workup found your potassium and magnesium to be slightly low, but your blood sugar to be significantly elevated at 329. Your urine drug screen was positive for buprenorphine and marijuana. Based on your history, physical exam, and ER tests, the cause of your recurrent nausea and vomiting is most likely due to cannabis hyperemesis syndrome, a condition that causes recurrent nausea, vomiting, and abdominal pain in patients who smoke marijuana regularly. We strongly recommend that you consider quitting smoking marijuana. You were given IV fluid, IV Zofran, and IV Reglan in the ER. You declined an offer for subcutaneous Humalog. Please follow-up with your PCP, XI Henao, at the next available appointment. If any other problems, please do not hesitate to return to the ER.
[2019-08-18] MEDS ORDERED: Insulin Lispro 100 Units/ML 3 ML Vial SUBCUT STA (14:21)
[2019-08-18] MEDS ORDERED: Metoclopramide 10 MG/2 ML SDV IVPUSH STA (14:24)
== END 2019-08-18 14:50 | disposition home or self-care (01) ==
LOC: JD.ED 11:03
DX: F12.188 Cannabis abuse with other cannabis-induced disorder (principal); G43.A0 Cyclical vomiting, in migraine, not intractable; E10.65 Type 1 diabetes mellitus with hyperglycemia; E87.6 Hypokalemia; E83.42 Hypomagnesemia; F17.210 Nicotine dependence, cigarettes, uncomplicated; K21.9 Gastro-esophageal reflux disease without esophagitis; Z79.899 Other long term (current) drug therapy; Z91.030 Bee allergy status; Z88.6 Allergy status to analgesic agent
CPT/HCPCS: 36415; 80053; 80306; 81001; 81025; 83735; 85007; 85027; 87493; 96361; 96374; 96375; 96376; 99284; J2405; J2765; J7040

== ENCOUNTER 2019-08-22 17:29 | Inpatient (IN) | payer MEDICAID ==
[2019-08-22] MEDS ORDERED: Sodium Chloride 0.9% 1,000 ML IV ONE ×2 (18:03→19:37)
[2019-08-22] MEDS ORDERED: Metoclopramide 10 MG/2 ML SDV IVPUSH ONE (18:03)
[2019-08-22] MEDS ORDERED: Sodium Chloride 0.9% 10 ML SDV IV PRN (18:03)
[2019-08-22] MEDS ORDERED: Insulin Regular, Human 100 Units/ML 3 ML Vial ONE (19:42)
[2019-08-22] MEDS ORDERED: Lactated Ringers 1,000 ML IV ONE ×3 (20:23→23:33)
[2019-08-22] MEDS: Sodium Chloride 0.9% 10 ML Syringe FLUSH PRN ×2 (20:28→20:34)
--- NOTE | 2019-08-22 20:43 | PCM.SN ---
- Free Text/Narrative Note: Called for IV insertion. 20 gauge IV was inserted in the left arm x1 attempt with standard technique, good blood return, flushed with 20 ml 0.9NS, secured with a transparent dressing, tolerated the procedure well. Juma Lincoln NURSE MIDWIFE
--- NOTE | 2019-08-22 21:04 | EDM.PDOC ---
ED HPI GENERAL MEDICAL PROBLEM - General Chief Complaint: Abdominal Pain Stated Complaint: VOMITING X 5 DAYS AND SOB Time Seen by Provider: 08/22/19 17:54 Source of Information: Reports: Patient History Limitations: Reports: No Limitations - History of Present Illness INITIAL COMMENTS - FREE TEXT/NARRATIVE: 34-year-old female resents for evaluation and treatment of nausea and vomiting. Patient reports that she's been vomiting about every hour or 2 for the last 5 days. She reports that she has been vomiting up blood. She was seen in the ER about 4 days ago. She had lab studies done and was sent home. Patient is a type I diabetic. She reports this morning her sugar was 347. She gave herself 4 units normal insulin and her Treseba. This around 0700 this morning. Patient reports current symptoms of weakness, malaise, chest pain, shortness of breath, chills, abdominal pain, nausea, vomiting, hematemesis and melenic stools. She denies any diarrhea. Patient is currently on Suboxone. PCP is Cherri Canseco. Epigastric Pain Score (Numeric/FACES): 8 - Related Data Allergies Allergy/AdvReac Type Severity Reaction Status Date / Time latex Allergy Hives Verified 06/27/19 12:31 tramadol Allergy Hives Verified 06/27/19 12:31 Home Meds: Home Meds Insulin Aspart [Novolog Flexpen] See Protocol SUBCNJ TIDMEALS 01/05/18 [History] Insulin Degludec [Tresiba] 27 unit SQ DAILY 12/18/18 [History] Buprenorphine HCl/Naloxone HCl [Suboxone 4 mg-1 mg Sl Film] 8 mg PO BID [History] Metoclopramide HCl [Reglan] 10 mg PO QID PRN #15 tablet 06/27/19 [Rx] Ondansetron [Zofran ODT] 4 mg PO Q6H PRN #20 tab.dis 06/27/19 [Rx] Citalopram Hydrobromide [Celexa] 20 mg PO DAILY 07/30/19 [History] Lisinopril 5 mg PO DAILY 07/30/19 [History] Pantoprazole [ProTONIX] 20 mg PO DAILY 07/30/19 [History] Past Medical History - Past Health History Medical/Surgical History: Denies Medical/Surgical History HEENT History: Reports: Other (See Below) Other HEENT History: dysphagia Cardiovascular History: Reports: Hypertension Respiratory History: Reports: PE Gastrointestinal History: Reports: Chronic Diarrhea, GERD, Irritable Bowel Syndrome Other Gastrointestinal History: diarrhea, nausea, LLQ pain 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 History: [employer]OTOV[employer]ST[employer]ER History: Reports: Endometriosis, 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 Musculoskeletal History: Reports: Arthritis, Back Pain, Chronic Other Musculoskeletal History: chronic pain Neurological History: Reports: Headaches, Chronic, Migraines, Seizure Other Neuro History: Diabetic seizure Psychiatric History: Reports: Anxiety, Depression Other Psychiatric History: drug use history Endocrine/Metabolic History: Reports: Diabetes, Type I Other Endocrine/Metabolic History: hypokalemia Hematologic History: Reports: Blood Transfusion(s) Other Hematologic History: blood clotting disorder, DVT Other Immunologic History: 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 HIV from IV drug use, MRSA Dermatologic History: Reports: Eczema, Psoriasis - Infectious Disease History Infectious Disease History: Reports: MRSA Other Infectious Disease History: MRSA-2 yrs ago - Past Surgical History GI Surgical History: Reports: Cholecystectomy Other GI Surgeries/Procedures: ileostomy and closure, small bowel resection Social & Family History - Family History Family Medical History: Noncontributory - Tobacco Use Smoking Status *Q: Current Every Day Smoker Years of Tobacco use: 20 Packs/Tins Daily: 1 - Caffeine Use Caffeine Use: Reports: Coffee, Soda Other Caffeine Use: drinks mellow yellow daily about 3 cans - Recreational Drug Use Recreational Drug Use: Yes Drug Use in Last 12 Months: Yes Recreational Drug Type: Reports: Marijuana/Hashish - Living Situation & Occupation Living situation: Reports: Single, with Family Occupation: Unemployed ED ROS GENERAL - Review of Systems Review Of Systems: See Below Constitutional: Reports: Chills, Malaise. Denies: Fever Respiratory: Reports: Shortness of Breath Cardiovascular: Reports: Chest Pain GI/Abdominal: Reports: Abdominal Pain, Hematemesis, Melena, Nausea, Vomiting. Denies: Diarrhea ED EXAM, GI/ABD - Physical Exam Exam: See Below Exam Limited By: No Limitations General Appearance: Alert, WD/WN, Moderate Distress, Thin, Other (smells of ketones) Ears: Normal External Exam Nose: Normal Inspection Throat/Mouth: Normal Inspection, Normal Oropharynx, Normal Voice, No Airway Compromise, Other (edentulous, dry mucus membranes) Respiratory/Chest: Lungs Clear, Normal Breath Sounds, Other (tachypnea) Cardiovascular: No Murmur, Tachycardia GI/Abdominal Exam: Normal Bowel Sounds, Soft, Tender Neurological: Alert, Oriented, Normal Cognition Psychiatric: Normal Affect, Normal Mood Skin Exam: Warm, Dry, Normal Color Course - Vital Signs Last Recorded V/S: Last Vital Signs Temp 97 F 08/22/19 17:44 Pulse 120 H 08/22/19 17:44 Resp 16 08/22/19 17:44 BP 122/69 08/22/19 17:44 Pulse Ox 100 08/22/19 17:44 - Orders/Labs/Meds Orders: Active Orders 24 hr Category Date Time Status Blood Glucose Check, Bedside [RC] ONETIME Care 08/22/19 18:03 Active Peripheral IV Care [RC] . DIRECTED Care 08/22/19 18:03 Active Chest 1V Frontal [CR] Stat Exams 08/22/19 21:48 Taken DRUG SCREEN, URINE [URCHEM] Stat Lab 08/22/19 18:03 Ordered UA W/MICROSCOPIC [URIN] Stat Lab 08/22/19 18:03 Ordered Sodium Chloride 0.9% [Normal Saline] Med 08/22/19 18:03 Active 10 ml IV ASDIRECTED PRN Sodium Chloride 0.9% [Saline Flush] Med 08/22/19 18:03 Active 10 ml FLUSH ASDIRECTED PRN Peripheral IV Insertion Adult [OM.PC] Routine Oth 08/22/19 18:02 Ordered Medication Orders Sodium Chloride (Saline Flush) 10 ml FLUSH ASDIRECTED PRN PRN Reason: Keep Vein Open Last Admin: 08/22/19 20:34 Dose: 10 ml Admin: 08/22/19 20:28 Dose: 10 ml Sodium Chloride (Normal Saline) 10 ml IV ASDIRECTED PRN PRN Reason: Other Last Admin: 08/22/19 20:34 Dose: 10 ml Labs: Laboratory Tests 08/22/19 08/22/19 08/22/19 Range/Units 19:00 19:00 19:00 WBC 13.19 H (3.98-10.04) K/mm3 RBC 5.83 H (3.98-5.22) M/mm3 Hgb 17.1 H D (11.2-15.7) gm/dl Hct 51.4 H (34.1-44.9) % MCV 88.2 (79.4-94.8) fl MCH 29.3 (25.6-32.2) pg MCHC 33.3 (32.2-35.5) g/dl RDW Std Deviation 42.1 (36.4-46.3) fL Plt Count 249 D (182-369) K/mm3 MPV 10.4 (9.4-12.3) fl Neutrophils % (Manual) 90 H (40-60) % Band Neutrophils % 0 (0-10) % Lymphocytes % (Manual) 8 L (20-40) % Atypical Lymphs % 0 % Monocytes % (Manual) 2 (2-10) % Eosinophils % (Manual) 0 L (0.7-5.8) % Basophils % (Manual) 0 L (0.1-1.2) Hypersegmented Neuts Occasional Platelet Estimate Adequate RBC Morph Comment Normal Puncture Site ABG pH (7.35-7.45) ABG pCO2 (35.0-45.0) mmHg ABG pO2 (80.0-100.0) mmHg ABG HCO3 (22.0-26.0) meq/L ABG O2 Saturation (96.0-97.0) % ABG Base Excess (-2-2.0) A-a Gradient mmHg O2 Delivery Device FiO2 (21.00-100.00) % Sodium 137 (136-145) mEq/L Potassium 4.9 D (3.5-5.1) mEq/L Chloride 97 L (98-107) mEq/L Carbon Dioxide (21-32) mEq/L Anion Gap 36.9 H (5-15) BUN 32 H D (7-18) mg/dL Creatinine 1.8 H (0.55-1.02) mg/dL Est Cr Clr Drug Dosing 40.84 mL/min Estimated GFR (MDRD) 32 (>60) mL/min BUN/Creatinine Ratio 17.8 (14-18) Glucose 459 H (74-106) mg/dL Serum Osmolality 343 H (280-300) mosm/kg Calcium 10.2 H (8.5-10.1) mg/dL Magnesium 2.4 (1.8-2.4) mg/dl Total Bilirubin 0.7 (0.2-1.0) mg/dL AST 16 (15-37) U/L ALT 40 (14-59) U/L Alkaline Phosphatase 123 H (46-116) U/L C-Reactive Protein < 0.2 (<1.0) mg/dL Total Protein 7.6 (6.4-8.2) g/dl Albumin 4.3 (3.4-5.0) g/dl Globulin 3.3 gm/dL Albumin/Globulin Ratio 1.3 (1-2) Lipase 101 (73-393) U/L Ketones 0.34 (0.0-0.3) mM 08/22/19 08/22/19 Range/Units 19:45 21:05 WBC (3.98-10.04) K/mm3 RBC (3.98-5.22) M/mm3 Hgb (11.2-15.7) gm/dl Hct (34.1-44.9) % MCV (79.4-94.8) fl MCH (25.6-32.2) pg MCHC (32.2-35.5) g/dl RDW Std Deviation (36.4-46.3) fL Plt Count (182-369) K/mm3 MPV (9.4-12.3) fl Neutrophils % (Manual) (40-60) % Band Neutrophils % (0-10) % Lymphocytes % (Manual) (20-40) % Atypical Lymphs % % Monocytes % (Manual) (2-10) % Eosinophils % (Manual) (0.7-5.8) % Basophils % (Manual) (0.1-1.2) Hypersegmented Neuts Platelet Estimate RBC Morph Comment Puncture Site Lt brachial ABG pH 7.15 L* (7.35-7.45) ABG pCO2 12.1 L* (35.0-45.0) mmHg ABG pO2 125.0 H (80.0-100.0) mmHg ABG HCO3 4.0 L (22.0-26.0) meq/L ABG O2 Saturation 98.2 H (96.0-97.0) % ABG Base Excess -24.9 L (-2-2.0) A-a Gradient 10 mmHg O2 Delivery Device Room air FiO2 21.00 (21.00-100.00) % Sodium (136-145) mEq/L Potassium (3.5-5.1) mEq/L Chloride (98-107) mEq/L Carbon Dioxide (21-32) mEq/L Anion Gap (5-15) BUN (7-18) mg/dL Creatinine (0.55-1.02) mg/dL Est Cr Clr Drug Dosing mL/min Estimated GFR (MDRD) (>60) mL/min BUN/Creatinine Ratio (14-18) Glucose 478 H (74-106) mg/dL Serum Osmolality (280-300) mosm/kg Calcium (8.5-10.1) mg/dL Magnesium (1.8-2.4) mg/dl Total Bilirubin (0.2-1.0) mg/dL AST (15-37) U/L ALT (14-59) U/L Alkaline Phosphatase (46-116) U/L C-Reactive Protein (<1.0) mg/dL Total Protein (6.4-8.2) g/dl Albumin (3.4-5.0) g/dl Globulin gm/dL Albumin/Globulin Ratio (1-2) Lipase (73-393) U/L Ketones (0.0-0.3) mM Meds: Medications Generic Name Dose Route Start Last Admin Trade Name Freq PRN Reason Stop Dose Admin Sodium Chloride 10 ml 08/22/19 18:03 08/22/19 20:34 Saline Flush FLUSH 10 ml ASDIRECTED PRN Administration Keep Vein Open Sodium Chloride 10 ml 08/22/19 18:03 08/22/19 20:34 Normal Saline IV 10 ml ASDIRECTED PRN Administration Other Discontinued Medications Generic Name Dose Route Start Last Admin Trade Name Freq PRN Reason Stop Dose Admin Sodium Chloride 1,000 mls @ 999 mls/hr 08/22/19 18:03 08/22/19 20:34 Normal Saline IV 08/22/19 19:03 Not Given ONETIME ONE Sodium Chloride 1,000 mls @ 999 mls/hr 08/22/19 19:37 08/22/19 20:34 Normal Saline IV 08/22/19 20:37 999 mls/hr ONETIME ONE Administration Lactated Ringer's 1,000 mls @ 999 mls/hr 08/22/19 20:23 08/22/19 21:48 Ringers, Lactated IV 08/22/19 21:23 999 mls/hr .BOLUS ONE Administration Insulin Human Regular 5 unit 08/23/19 06:00 08/22/19 19:45 Humulin R SUBCUT 5 units BIDAC TONIO Administration Insulin Human Regular Confirm 08/22/19 19:42 08/22/19 20:23 Humulin R Administered 08/22/19 19:43 Not Given Dose 300 unit .ROUTE .STK-MED ONE Ketorolac Tromethamine 15 mg 08/22/19 21:46 08/22/19 21:54 Toradol IVPUSH 08/22/19 21:47 15 mg ONETIME ONE Administration Metoclopramide HCl 7.5 mg 08/22/19 18:03 08/22/19 20:25 Reglan IVPUSH 08/22/19 18:04 7.5 mg ONETIME ONE Administration Ondansetron HCl 4 mg 08/22/19 21:50 08/22/19 21:54 Zofran IVPUSH 08/22/19 21:51 4 mg ONETIME ONE Administration Ondansetron HCl Confirm 08/22/19 21:53 Zofran Administered 08/22/19 21:54 Dose 4 mg .ROUTE .STK-MED ONE - Re-Assessments/Exams Free Text/Narrative Re-Assessment/Exam: 08/22/19 21:55 Unfortunately, we are very hard time getting IV to start for this patient. Anesthesia was able to get a 20-gauge in her left arm. She has now received about a liter of fluid. She has received 5 units subcutaneous of insulin. Initial blood sugar was greater than 400 at bedside. Per lab was 459. After the 5 units subcutaneous insulin and maybe 250 of fluids blood sugar still elevated at 478. Discussed case with Dr. Rolle. He agrees to the admission. We'll continue to give her fluids. Departure - Departure Time of Disposition: 21:58 Disposition: Admitted As Inpatient 65 Condition: Poor Clinical Impression: Cyclic vomiting syndrome, DKA (diabetic ketoacidoses) - Discharge Information Referrals: Fanta Canseco PA-C [Primary Care Provider] - Forms: ED Department Discharge - My Orders Last 24 Hours: My Active Orders 08/22/19 18:02 Peripheral IV Insertion Adult [OM.PC] Routine 08/22/19 18:03 Blood Glucose Check, Bedside [RC] ONETIME Peripheral IV Care [RC] . DIRECTED DRUG SCREEN, URINE [URCHEM] Stat UA W/MICROSCOPIC [URIN] Stat Sodium Chloride 0.9% [Normal Saline] 10 ml IV ASDIRECTED PRN Sodium Chloride 0.9% [Saline Flush] 10 ml FLUSH ASDIRECTED PRN 08/22/19 21:48 Chest 1V Frontal [CR] Stat - Assessment/Plan Last 24 Hours: My Active Orders 08/22/19 18:02 Peripheral IV Insertion Adult [OM.PC] Routine 08/22/19 18:03 Blood Glucose Check, Bedside [RC] ONETIME Peripheral IV Care [RC] . DIRECTED DRUG SCREEN, URINE [URCHEM] Stat UA W/MICROSCOPIC [URIN] Stat Sodium Chloride 0.9% [Normal Saline] 10 ml IV ASDIRECTED PRN Sodium Chloride 0.9% [Saline Flush] 10 ml FLUSH ASDIRECTED PRN 08/22/19 21:48 Chest 1V Frontal [CR] Stat
[2019-08-22] MEDS ORDERED: Ketorolac 30 MG/ML SDV IVPUSH ONE (21:46)
[2019-08-22] MEDS ORDERED: Ondansetron 4 MG/2 ML SDV IVPUSH ONE (21:50)
[2019-08-22] MEDS ORDERED: Ondansetron 4 MG/2 ML SDV ONE (21:53)
[2019-08-22] MEDS ORDERED: Pantoprazole 40 MG Vial IVPUSH ONE (22:00)
[2019-08-22] MEDS ORDERED: Albuterol/Ipratropium 3.0-0.5 MG/3 ML Neb Soln NEB PRN (22:28)
[2019-08-22] MEDS ORDERED: Acetaminophen/HYDROcodone 325-5 MG Tab PO PRN (22:28)
[2019-08-22] MEDS ORDERED: HYDROmorphone 0.5 MG/0.5 ML Syringe IVPUSH PRN (22:28)
[2019-08-22] MEDS ORDERED: Acetaminophen 325 MG Tab PO PRN (22:28)
[2019-08-22] MEDS ORDERED: Metoprolol Tartrate 5 MG/5 ML SDV IVPUSH PRN (22:34)
[2019-08-22 22:58] LABS: HEMOGLOBIN A1C 9.2 % (4.50-6.20)
--- NOTE | 2019-08-22 22:59 | PCM.HP.2 ---
H&P History of Present Illness - General Date of Service: 08/22/19 Admit Problem/Dx: Admission Diagnosis/Problem Admission Diagnosis/Problem Diabetic ketoacidosis Source of Information: Patient, Old Records, Provider, RN Notes Reviewed History Limitations: Reports: No Limitations - History of Present Illness Initial Comments - Free Text/Narative: This is a 34 yo white female with past medical hx/o HTN, Dysphagia, Chronic Diarrhea, GERD, IBS, Nausea, OA/DJD, Back Pain, Migraines, Seizure Disorder, DM1 ,Hx/o PE/DVT, Hx/o IDVU, Hx/o MRSA, Eczema, Psoriasis, Anxiety, Depression and Hx/o Meth and Marijuana Abuse who presents to ED with complaints of 5 day hx/o nausea and vomiting associated with abdominal pain, generalized weakness, malaise, chest pain, shortness of breath, chills, hematemesis and melenic stool. She states she was seen in ED 4 days ago but was sent home after she received some treatment. She usually on SA and LA insulin. She took her regimen as scheduled this morning. However had about 347 of glucose level prior to on arrival to ED. Her initial work up in ED shows a CBC remarkable for WBC of 13.19, RBC of 5.83, Hgb of 17.1 Hct of 51.4, Neutrophils of 90% and Lymphocytes of 8%. Her chemistry is significant for Cl of 97, AG of 36.9, BUN of 32, Cr of 1.8, BS of 459, Serum Osm of 343, Ca of 10.2, and Alk Phos of 123. Patient is coming in primarily for treatment of DKA. Epigastric Pain Score (Numeric/FACES): 8 - Related Data Allergies/Adverse Reactions: Allergies Allergy/AdvReac Type Severity Reaction Status Date / Time latex Allergy Hives Verified 08/23/19 02:35 tramadol Allergy Hives Verified 08/23/19 02:35 Home Medications: Home Meds Insulin Aspart [Novolog Flexpen] See Protocol SUBCNJ TIDMEALS 01/05/18 [History] Insulin Degludec [Tresiba] 27 unit SQ DAILY 12/18/18 [History] Buprenorphine HCl/Naloxone HCl [Suboxone 4 mg-1 mg Sl Film] 8 mg PO BID [History] Metoclopramide HCl [Reglan] 10 mg PO QID PRN #15 tablet 06/27/19 [Rx] Ondansetron [Zofran ODT] 4 mg PO Q6H PRN #20 tab.dis 06/27/19 [Rx] Citalopram Hydrobromide [Celexa] 20 mg PO DAILY 07/30/19 [History] Lisinopril 5 mg PO DAILY 07/30/19 [History] Pantoprazole [ProTONIX] 20 mg PO DAILY 07/30/19 [History] Past Medical History - Past Health History Medical/Surgical History: Denies Medical/Surgical History HEENT History: Reports: Other (See Below) Other HEENT History: dysphagia Cardiovascular History: Reports: Hypertension Respiratory History: Reports: PE Gastrointestinal History: Reports: Chronic Diarrhea, GERD, Irritable Bowel Syndrome Other Gastrointestinal History: diarrhea, nausea, LLQ pain 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 History: 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: Reports: Endometriosis, Other OB/BYN History: amenorrhea Musculoskeletal History: Reports: Arthritis, Back Pain, Chronic Other Musculoskeletal History: chronic pain Neurological History: Reports: Headaches, Chronic, Migraines, Seizure Other Neuro History: Diabetic seizure Psychiatric History: Reports: Anxiety, Depression Other Psychiatric History: drug use history Endocrine/Metabolic History: Reports: Diabetes, Type I Other Endocrine/Metabolic History: hypokalemia Hematologic History: Reports: Blood Transfusion(s) Other Hematologic History: blood clotting disorder, DVT Other Immunologic History: risk for HIV from IV drug use, MRSA Dermatologic History: Reports: Eczema, Psoriasis - Infectious Disease History Infectious Disease History: Reports: MRSA Other Infectious Disease History: MRSA-2 yrs ago - Past Surgical History GI Surgical History: Reports: Cholecystectomy Other GI Surgeries/Procedures: ileostomy and closure, small bowel resection Social & Family History - Family History Family Medical History: Noncontributory - Tobacco Use Smoking Status *Q: Current Every Day Smoker Years of Tobacco use: 20 Packs/Tins Daily: 1 - Caffeine Use Caffeine Use: Reports: Coffee, Soda Other Caffeine Use: drinks mellow yellow daily about 3 cans - Recreational Drug Use Recreational Drug Use: Yes Drug Use in Last 12 Months: Yes Recreational Drug Type: Reports: Marijuana/Hashish - Living Situation & Occupation Living situation: Reports: Single, with Family Occupation: Unemployed H&P Review of Systems - Review of Systems: Review Of Systems: See Below General: Reports: Chills, Malaise. Denies: Fever, Fatigue HEENT: Reports: No Symptoms Pulmonary: Reports: Shortness of Breath Cardiovascular: Reports: No Symptoms, Chest Pain Gastrointestinal: Reports: Abdominal Pain, Hematemesis, Melena, Nausea, Vomiting 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: Reports: No Symptoms Musculoskeletal: Reports: No Symptoms Psychiatric: Reports: Hallucinations (Visual). Denies: Confusion, Depression, Mood Lability, Anxiety, Cravings, Hallucinations, Suicidal Ideation, Homicidal Ideation Neurological: Denies: Dizziness, Difficulty Walking, Weakness, Gait Disturbance Hematologic/Lymphatic: Reports: No Symptoms Immunologic: Reports: No Symptoms Exam - Exam Exam: See Below - Vital Signs Vital Signs: Last Vital Signs Temp 36.1 C 08/22/19 17:44 Pulse 120 H 08/22/19 17:44 Resp 16 08/22/19 17:44 BP 122/69 08/22/19 17:44 Pulse Ox 100 08/22/19 17:44 Weight: 63.503 kg - Exam General: Alert, Oriented, Cooperative, Mild Distress HEENT: Conjunctiva Clear, EACs Clear, EOMI, Hearing Intact, Nares Patent, Normal Nasal Septum, Posterior Pharynx Clear, Pupils Equal, Pupils Reactive, Other (edentulous). No: Mucosa Moist & [place] Neck: Supple, Trachea Midline Lungs: Clear to Auscultation, Normal Respiratory Effort Cardiovascular: Tachycardia GI/Abdominal Exam: Normal Bowel Sounds, Soft, Non-Tender, No Organomegaly, No Distention, No Abnormal Bruit (Female) Exam: Deferred Rectal (Female) Exam: Deferred Back Exam: Normal Inspection, Decreased Range of Motion Extremities: Normal Inspection, Normal Range of Motion, Non-Tender, No Pedal Edema, Normal Capillary Refill Peripheral Pulses: 1+: Posterior Tibial (L), Posterior Tibial (R), Dorsalis Pedis (L), Dorsalis Pedis (R) Skin: Warm, Dry, Intact Neuro Extensive - Mental Status: Oriented x3, Normal Cognition, Memory Intact Neuro Extensive - Motor, Sensory, Reflexes: CN II-XII Intact, Normal Gait Psychiatric: Alert, Normal Affect, Normal Mood - Patient Data Lab Results Last 24 hrs: Laboratory Results - last 24 hr 08/22/19 08/22/19 08/22/19 Range/Units 19:00 19:00 19:00 WBC 13.19 H (3.98-10.04) K/mm3 RBC 5.83 H (3.98-5.22) M/mm3 Hgb 17.1 H D (11.2-15.7) gm/dl Hct 51.4 H (34.1-44.9) % MCV 88.2 (79.4-94.8) fl MCH 29.3 (25.6-32.2) pg MCHC 33.3 (32.2-35.5) g/dl RDW Std Deviation 42.1 (36.4-46.3) fL Plt Count 249 D (182-369) K/mm3 MPV 10.4 (9.4-12.3) fl Neutrophils % (Manual) 90 H (40-60) % Band Neutrophils % 0 (0-10) % Lymphocytes % (Manual) 8 L (20-40) % Atypical Lymphs % 0 % Monocytes % (Manual) 2 (2-10) % Eosinophils % (Manual) 0 L (0.7-5.8) % Basophils % (Manual) 0 L (0.1-1.2) Hypersegmented Neuts Occasional Platelet Estimate Adequate RBC Morph Comment Normal Puncture Site ABG pH (7.35-7.45) ABG pCO2 (35.0-45.0) mmHg ABG pO2 (80.0-100.0) mmHg ABG HCO3 (22.0-26.0) meq/L ABG O2 Saturation (96.0-97.0) % ABG Base Excess (-2-2.0) A-a Gradient mmHg O2 Delivery Device FiO2 (21.00-100.00) % Sodium 137 (136-145) mEq/L Potassium 4.9 D (3.5-5.1) mEq/L Chloride 97 L (98-107) mEq/L Carbon Dioxide (21-32) mEq/L Anion Gap 36.9 H (5-15) BUN 32 H D (7-18) mg/dL Creatinine 1.8 H (0.55-1.02) mg/dL Est Cr Clr Drug Dosing 40.84 mL/min Estimated GFR (MDRD) 32 (>60) mL/min BUN/Creatinine Ratio 17.8 (14-18) Glucose 459 H (74-106) mg/dL Serum Osmolality 343 H (280-300) mosm/kg Calcium 10.2 H (8.5-10.1) mg/dL Magnesium 2.4 (1.8-2.4) mg/dl Total Bilirubin 0.7 (0.2-1.0) mg/dL AST 16 (15-37) U/L ALT 40 (14-59) U/L Alkaline Phosphatase 123 H (46-116) U/L C-Reactive Protein < 0.2 (<1.0) mg/dL Total Protein 7.6 (6.4-8.2) g/dl Albumin 4.3 (3.4-5.0) g/dl Globulin 3.3 gm/dL Albumin/Globulin Ratio 1.3 (1-2) Lipase 101 (73-393) U/L Ketones 0.34 (0.0-0.3) mM 08/22/19 08/22/19 Range/Units 19:45 21:05 WBC (3.98-10.04) K/mm3 RBC (3.98-5.22) M/mm3 Hgb (11.2-15.7) gm/dl Hct (34.1-44.9) % MCV (79.4-94.8) fl MCH (25.6-32.2) pg MCHC (32.2-35.5) g/dl RDW Std Deviation (36.4-46.3) fL Plt Count (182-369) K/mm3 MPV (9.4-12.3) fl Neutrophils % (Manual) (40-60) % Band Neutrophils % (0-10) % Lymphocytes % (Manual) (20-40) % Atypical Lymphs % % Monocytes % (Manual) (2-10) % Eosinophils % (Manual) (0.7-5.8) % Basophils % (Manual) (0.1-1.2) Hypersegmented Neuts Platelet Estimate RBC Morph Comment Puncture Site Lt brachial ABG pH 7.15 L* (7.35-7.45) ABG pCO2 12.1 L* (35.0-45.0) mmHg ABG pO2 125.0 H (80.0-100.0) mmHg ABG HCO3 4.0 L (22.0-26.0) meq/L ABG O2 Saturation 98.2 H (96.0-97.0) % ABG Base Excess -24.9 L (-2-2.0) A-a Gradient 10 mmHg O2 Delivery Device Room air FiO2 21.00 (21.00-100.00) % Sodium (136-145) mEq/L Potassium (3.5-5.1) mEq/L Chloride (98-107) mEq/L Carbon Dioxide (21-32) mEq/L Anion Gap (5-15) BUN (7-18) mg/dL Creatinine (0.55-1.02) mg/dL Est Cr Clr Drug Dosing mL/min Estimated GFR (MDRD) (>60) mL/min BUN/Creatinine Ratio (14-18) Glucose 478 H (74-106) mg/dL Serum Osmolality (280-300) mosm/kg Calcium (8.5-10.1) mg/dL Magnesium (1.8-2.4) mg/dl Total Bilirubin (0.2-1.0) mg/dL AST (15-37) U/L ALT (14-59) U/L Alkaline Phosphatase (46-116) U/L C-Reactive Protein (<1.0) mg/dL Total Protein (6.4-8.2) g/dl Albumin (3.4-5.0) g/dl Globulin gm/dL Albumin/Globulin Ratio (1-2) Lipase (73-393) U/L Ketones (0.0-0.3) mM Result Diagrams: 08/23/19 06:30 08/23/19 12:05 Problem List Initiated/Reviewed/Updated: Yes Orders Last 24hrs: Active Orders 24 hr Category Date Time Status Patient Status [ADT] Routine ADT 08/22/19 22:03 Active Antiembolic Devices [RC] PER UNIT ROUTINE Care 08/22/19 22:29 Ordered Blood Glucose Check, Bedside [RC] ONETIME Care 08/22/19 18:03 Active Cardiac Monitoring [RC] CONTINUOUS Care 08/22/19 22:29 Ordered Height and Weight [RC] DAILY Care 08/22/19 22:28 Ordered Intake and Output [RC] QSHIFT Care 08/22/19 22:29 Ordered Oxygen Therapy [RC] PRN Care 08/22/19 22:28 Ordered Peripheral IV Care [RC] . DIRECTED Care 08/22/19 18:03 Active RT Aerosol Therapy [RC] ASDIRECTED Care 08/22/19 22:30 Ordered Up With Assistance [RC] ASDIRECTED Care 08/22/19 22:28 Ordered Up ad Brittany [RC] ASDIRECTED Care 08/22/19 22:28 Ordered VTE/DVT Education [RC] PER UNIT ROUTINE Care 08/22/19 22:28 Ordered Vital Signs [RC] Q4H Care 08/22/19 22:28 Ordered Consult to Case Management/Building Rental Superintendent [CONS] Cons 08/22/19 22:31 Ordered Routine Consult to Diabetic Nurse Specialist [CONS] Routine Cons 08/22/19 22:31 Ordered Consult to Dolly Pusher [CONS] Routine Cons 08/22/19 22:31 Ordered Nothing per Oral Now Diet [DIET] Diet 08/22/19 Dinner Ordered Chest 1V Frontal [CR] Stat Exams 08/22/19 21:48 Taken A1C [GLYCOSYLATED HEMOGLOBIN,HGBA1C] [CHEM] Stat Lab 08/22/19 19:00 Received BASIC METABOLIC PANEL,BMP [CHEM] Q4H Lab 08/22/19 22:30 Ordered BASIC METABOLIC PANEL,BMP [CHEM] Q4H Lab 08/23/19 02:30 Ordered BASIC METABOLIC PANEL,BMP [CHEM] Q4H Lab 08/23/19 06:30 Ordered BASIC METABOLIC PANEL,BMP [CHEM] Q4H Lab 08/23/19 10:30 Ordered BASIC METABOLIC PANEL,BMP [CHEM] Q4H Lab 08/23/19 14:30 Ordered BASIC METABOLIC PANEL,BMP [CHEM] Q4H Lab 08/23/19 18:30 Ordered BASIC METABOLIC PANEL,BMP [CHEM] Q4H Lab 08/23/19 22:30 Ordered BASIC METABOLIC PANEL,BMP [CHEM] Q4H Lab 08/24/19 02:30 Ordered CBC WITH AUTO DIFF [HEME] AM Lab 08/23/19 05:11 Ordered CBC WITH AUTO DIFF [HEME] AM Lab 08/24/19 05:11 Ordered CBC WITH AUTO DIFF [HEME] AM Lab 08/25/19 05:11 Ordered CBC WITH AUTO DIFF [HEME] AM Lab 08/26/19 05:11 Ordered DRUG SCREEN, URINE [URCHEM] Stat Lab 08/22/19 18:03 Ordered HCG QUALITATIVE,SERUM [CHEM] Stat Lab 08/22/19 22:31 Ordered LIPID PANEL [CHEM] AM Lab 08/23/19 05:11 Ordered MAGNESIUM [CHEM] Q4H Lab 08/23/19 22:30 Ordered MAGNESIUM [CHEM] Q4H Lab 08/24/19 02:30 Ordered MAGNESIUM [CHEM] Q4H Lab 08/24/19 06:30 Ordered MAGNESIUM [CHEM] Q4 Lab 08/24/19 10:30 Ordered MAGNESIUM [CHEM] Q4 Lab 08/24/19 14:30 Ordered MAGNESIUM [CHEM] Q4H Lab 08/24/19 18:30 Ordered MAGNESIUM [CHEM] Q4H Lab 08/24/19 22:30 Ordered MAGNESIUM [CHEM] Q4 Lab 08/25/19 02:30 Ordered MICROALBUMIN/CREAT RATIO,URINE [URCHEM] Stat Lab 08/22/19 22:37 Ordered PHOSPHORUS [CHEM] AM Lab 08/23/19 05:11 Ordered PHOSPHORUS [CHEM] AM Lab 08/24/19 05:11 Ordered PHOSPHORUS [CHEM] AM Lab 08/25/19 05:11 Ordered PHOSPHORUS [CHEM] AM Lab 08/26/19 05:11 Ordered PHOSPHORUS [CHEM] Routine Lab 08/22/19 22:31 Ordered UA W/MICROSCOPIC [URIN] Stat Lab 08/22/19 18:03 Ordered Acetaminophen [Tylenol] Med 08/22/19 22:28 Ordered 650 mg PO Q4H PRN Albuterol/Ipratropium [DuoNeb 3.0-0.5 MG/3 ML] Med 08/22/19 22:28 Ordered 3 ml NEB Q4H PRN Ibuprofen [Motrin] Med 08/27/19 10:00 Active 600 mg PO Q6H PRN Insulin Regular, Human [HumuLIN R] 100 unit Med 08/22/19 22:45 Pending Sodium Chloride 0.9% [Normal Saline] 99 ml IV TITRATE Ketorolac [Toradol] Med 08/22/19 22:28 Ordered 30 mg IV Q6H PRN Lactated Ringers [Ringers, Lactated] 1,000 ml Med 08/22/19 22:02 Active IV .BOLUS Metoprolol Tartrate [Lopressor] Med 08/22/19 22:34 Active 5 mg IVPUSH Q4H PRN Nicotine [Habitrol] Med 08/23/19 09:00 Active 21 mg TRDERM DAILY Ondansetron [Zofran] Med 08/22/19 22:28 Ordered 4 mg IV Q6H PRN Pantoprazole [ProTONIX IV] Med 08/23/19 09:00 Ordered 40 mg IV Q12HR Sodium Chloride 0.9% [Saline Flush] Med 08/22/19 18:03 Active 10 ml FLUSH ASDIRECTED PRN Temazepam [Restoril] Med 08/22/19 22:28 Ordered 15 mg PO BEDTIME PRN hydrALAZINE [Apresoline] Med 08/22/19 22:34 Active 20 mg IVPUSH Q4H PRN Peripheral IV Insertion Adult [OM.PC] Routine Oth 08/22/19 18:02 Ordered Sequential Compression Device [OM.PC] Per Unit Routine Oth 08/22/19 22:29 Ordered Resuscitation Status Routine Resus Stat 08/22/19 22:28 Ordered Medication Orders Acetaminophen (Tylenol) 650 mg PO Q4H PRN PRN Reason: Pain (Mild 1-3)/fever Albuterol/Ipratropium (Duoneb 3.0-0.5 Mg/3 Ml) 3 ml NEB Q4H PRN PRN Reason: Shortness Of Breath/wheezing Hydralazine HCl (Apresoline) 20 mg IVPUSH Q4H PRN PRN Reason: Hypertension Lactated Ringer's (Ringers, Lactated) 1,000 mls @ 999 mls/hr IV .BOLUS ONE Stop: 08/22/19 23:02 Insulin Human Regular 100 unit (/ Sodium Chloride) 100 mls @ 381.01 mls/hr IV TITRATE TONIO; Protocol Ibuprofen (Motrin) 600 mg PO Q6H PRN PRN Reason: Pain Ketorolac Tromethamine (Toradol) 30 mg IV Q6H PRN PRN Reason: Pain (moderate 4-6) Stop: 08/27/19 04:01 Metoprolol Tartrate (Lopressor) 5 mg IVPUSH Q4H PRN PRN Reason: Tachycardia Nicotine (Habitrol) 21 mg TRDERM DAILY TONIO Ondansetron HCl (Zofran) 4 mg IV Q6H PRN PRN Reason: Nausea/Vomiting Pantoprazole Sodium (Protonix Iv) 40 mg IV Q12HR TONIO Sodium Chloride (Saline Flush) 10 ml FLUSH ASDIRECTED PRN PRN Reason: Keep Vein Open Last Admin: 08/22/19 20:34 Dose: 10 ml Admin: 08/22/19 20:28 Dose: 10 ml Temazepam (Restoril) 15 mg PO BEDTIME PRN PRN Reason: Sleep Assessment/Plan Comment:: Assessment: Acute: DKA - Presented to ED complaints of nausea and vomiting for the past 5 days - She was seen in ED 4 days ago but was sent home - Last A1C 9 on 07/12/2019 - Took her usual SA and LA insulin - Presents with 347 glucose level Erythrocytosis - Hgb of 17.1 - Likely 2/2 hemo-concentration from DKA - She is dehydrated from DKA and GI loss - Monitor Increased AG with Metabolic Acidosis - 2/2 DKA - AG of 36.9 and CO2 of < 5 - IV hydration Acute Kidney Injury - BUN of 32 and Cr of 1.8 - 2/2 Volume Depletion - Received initial volume resuscitation in ED but not adequate Inadequate IV Access - Requested PICC line while patient while still in ED but only got peripheral access line - Now the vein blew on the only IV access Chronic: HTN, Dysphagia, Chronic Diarrhea, GERD, IBS, Nausea, OA/DJD, Back Pain , Migraines, Seizure Disorder, DM1,Hx/o PE/DVT, Hx/o IDVU, Hx/o MRSA, Eczema, Psoriasis, Anxiety, Depression as well as Hx/o Meth and Marijuana Abuse Plan: Admit to ICU DKA by my own protocol BMP Q4H A1C level, UDS and UA screening if not already done in ED IV Aggressive Hydration Accu-check Q1 then QID once AG resolves Regular insulin at 6 units/hr NPO except ice chips, sips of water and oral medications Dietary and Diabetic Education Goal: IV Hydration then regular insulin at 6 units/hr to resolve AG Once AG resolves, switch to regular insulin regimen then try crackers/soda--> ADA if able to tolerate SW/CM for d/c planning Code status: 1 Additional orders as above - Mortality Measure Prognosis:: Good
[2019-08-22] MEDS: Ondansetron 4 MG/2 ML SDV IV PRN (23:29)
[2019-08-22] MEDS ORDERED: Potassium Chloride 10 MEQ Tab.ER PO ONE (23:33)
[2019-08-22] MEDS ORDERED: Sodium Bicarbonate 150 MEQ in Dextrose 5% in Water 1,000 ML IV ONE ×2 (23:35)
[2019-08-22] MEDS: Temazepam 15 MG Cap PO PRN (23:49)
[2019-08-23] MEDS ORDERED: Sodium Bicarbonate 8.4% 50 MEQ/50 ML SDV ONE (00:39)
[2019-08-23] MEDS ORDERED: Ketorolac 30 MG/ML SDV IV PRN (04:00)
[2019-08-23] MEDS ORDERED: Dextrose 5% in Water 1,000 ML IV SCH (04:45)
[2019-08-23] MEDS ORDERED: Insulin Regular, Human 100 Units/ML 3 ML Vial SUBCUT SCH (06:00)
--- NOTE | 2019-08-23 06:30 | CR ---
Chest: Portable view of the chest was obtained. Comparison: Prior chest x-ray of 12/18/18 is available. Heart size and mediastinum are normal. Lungs are clear. Bony structures are grossly intact. Impression: 1. Nothing acute is appreciated on portable chest x-ray. Diagnostic code #1
[2019-08-23] MEDS: Ondansetron 4 MG/2 ML SDV IV PRN (07:16)
--- NOTE | 2019-08-23 07:47 | PCM.PN ---
- General Info Date of Service: 08/23/19 Admission Dx/Problem (Free Text): Admission Diagnosis/Problem Admission Diagnosis/Problem Diabetic ketoacidosis Subjective Update: Follow Up Functional Status: Reports: Pain Controlled, Tolerating Diet, Ambulating, Urinating - Review of Systems General: Reports: Weakness, Fatigue, Malaise. Denies: Fever, Chills HEENT: Reports: No Symptoms Pulmonary: Denies: Shortness of Breath Cardiovascular: Denies: Chest Pain, Dyspnea on Exertion, Lightheadedness Gastrointestinal: Reports: Abdominal Pain, Decreased Appetite, Nausea, Vomiting , Other (dark colored emesis) 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: Reports: No Symptoms Musculoskeletal: Reports: No Symptoms Neurological: Denies: Difficulty Walking, Weakness, Gait Disturbance Psychiatric: Denies: Mood Lability, Anxiety, Agitation, Cravings, Hallucinations , Suicidal Ideation, Homicidal Ideation Systems Review Comment:: No significant issues overnight but this morning she started throwing up with dark colored emesis. She is also nauseous and asking if she can have a shower. Her AG level is now back to normal range. - Patient Data Vitals - Most Recent: Last Vital Signs Temp 36.6 C 08/23/19 04:00 Pulse 120 H 08/22/19 17:44 Resp 16 08/23/19 04:00 BP 129/85 08/23/19 04:00 Pulse Ox 100 08/23/19 04:00 Weight - Most Recent: 59.874 kg I&O - Last 24 Hours: Intake & Output 08/22/19 08/23/19 08/23/19 22:59 06:59 14:59 Intake Total 2650 Balance 2650 Lab Results Last 24 Hours: Laboratory Results - last 24 hr 08/22/19 08/22/19 08/22/19 Range/Units 19:00 19:00 19:00 WBC 13.19 H (3.98-10.04) K/mm3 RBC 5.83 H (3.98-5.22) M/mm3 Hgb 17.1 H D (11.2-15.7) gm/dl Hct 51.4 H (34.1-44.9) % MCV 88.2 (79.4-94.8) fl MCH 29.3 (25.6-32.2) pg MCHC 33.3 (32.2-35.5) g/dl RDW Std Deviation 42.1 (36.4-46.3) fL Plt Count 249 D (182-369) K/mm3 MPV 10.4 (9.4-12.3) fl Neut % (Auto) (34.0-71.1) % Lymph % (Auto) (19.3-51.7) % [place] % (Auto) (4.7-12.5) % Eos % (Auto) (0.7-5.8) Baso % (Auto) (0.1-1.2) % Neut # (Auto) (1.56-6.13) K/mm3 Lymph # (Auto) (1.18-3.74) K/mm3 [place] # (Auto) (0.24-0.36) K/mm3 Eos # (Auto) (0.04-0.36) K/mm3 Baso # (Auto) (0.01-0.08) K/mm3 Neutrophils % (Manual) 90 H (40-60) % Band Neutrophils % 0 (0-10) % Lymphocytes % (Manual) 8 L (20-40) % Atypical Lymphs % 0 % Monocytes % (Manual) 2 (2-10) % Eosinophils % (Manual) 0 L (0.7-5.8) % Basophils % (Manual) 0 L (0.1-1.2) Hypersegmented Neuts Occasional Platelet Estimate Adequate RBC Morph Comment Normal Puncture Site ABG pH (7.35-7.45) ABG pCO2 (35.0-45.0) mmHg ABG pO2 (80.0-100.0) mmHg ABG HCO3 (22.0-26.0) meq/L ABG O2 Saturation (96.0-97.0) % ABG Base Excess (-2-2.0) A-a Gradient mmHg O2 Delivery Device FiO2 (21.00-100.00) % Sodium 137 (136-145) mEq/L Potassium 4.9 D (3.5-5.1) mEq/L Chloride 97 L (98-107) mEq/L Carbon Dioxide (21-32) mEq/L Anion Gap 36.9 H (5-15) BUN 32 H D (7-18) mg/dL Creatinine 1.8 H (0.55-1.02) mg/dL Est Cr Clr Drug Dosing 40.84 mL/min Estimated GFR (MDRD) 32 (>60) mL/min BUN/Creatinine Ratio 17.8 (14-18) Glucose 459 H (74-106) mg/dL POC Glucose (70-105) mg/dL Hemoglobin A1c (4.50-6.20) % Serum Osmolality 343 H (280-300) mosm/kg Calcium 10.2 H (8.5-10.1) mg/dL Phosphorus (2.6-4.7) mg/dL Magnesium 2.4 (1.8-2.4) mg/dl Total Bilirubin 0.7 (0.2-1.0) mg/dL AST 16 (15-37) U/L ALT 40 (14-59) U/L Alkaline Phosphatase 123 H (46-116) U/L C-Reactive Protein < 0.2 (<1.0) mg/dL Total Protein 7.6 (6.4-8.2) g/dl Albumin 4.3 (3.4-5.0) g/dl Globulin 3.3 gm/dL Albumin/Globulin Ratio 1.3 (1-2) Lipase 101 (73-393) U/L HCG, Qual (NEGATIVE) Ketones 0.34 (0.0-0.3) mM 08/22/19 08/22/19 08/22/19 Range/Units 19:00 19:00 19:45 WBC (3.98-10.04) K/mm3 RBC (3.98-5.22) M/mm3 Hgb (11.2-15.7) gm/dl Hct (34.1-44.9) % MCV (79.4-94.8) fl MCH (25.6-32.2) pg MCHC (32.2-35.5) g/dl RDW Std Deviation (36.4-46.3) fL Plt Count (182-369) K/mm3 MPV (9.4-12.3) fl Neut % (Auto) (34.0-71.1) % Lymph % (Auto) (19.3-51.7) % [place] % (Auto) (4.7-12.5) % Eos % (Auto) (0.7-5.8) Baso % (Auto) (0.1-1.2) % Neut # (Auto) (1.56-6.13) K/mm3 Lymph # (Auto) (1.18-3.74) K/mm3 [place] # (Auto) (0.24-0.36) K/mm3 Eos # (Auto) (0.04-0.36) K/mm3 Baso # (Auto) (0.01-0.08) K/mm3 Neutrophils % (Manual) (40-60) % Band Neutrophils % (0-10) % Lymphocytes % (Manual) (20-40) % Atypical Lymphs % % Monocytes % (Manual) (2-10) % Eosinophils % (Manual) (0.7-5.8) % Basophils % (Manual) (0.1-1.2) Hypersegmented Neuts Platelet Estimate RBC Morph Comment Puncture Site Lt brachial ABG pH 7.15 L* (7.35-7.45) ABG pCO2 12.1 L* (35.0-45.0) mmHg ABG pO2 125.0 H (80.0-100.0) mmHg ABG HCO3 4.0 L (22.0-26.0) meq/L ABG O2 Saturation 98.2 H (96.0-97.0) % ABG Base Excess -24.9 L (-2-2.0) A-a Gradient 10 mmHg O2 Delivery Device Room air FiO2 21.00 (21.00-100.00) % Sodium (136-145) mEq/L Potassium (3.5-5.1) mEq/L Chloride (98-107) mEq/L Carbon Dioxide (21-32) mEq/L Anion Gap (5-15) BUN (7-18) mg/dL Creatinine (0.55-1.02) mg/dL Est Cr Clr Drug Dosing mL/min Estimated GFR (MDRD) (>60) mL/min BUN/Creatinine Ratio (14-18) Glucose (74-106) mg/dL POC Glucose (70-105) mg/dL Hemoglobin A1c 9.20 H (4.50-6.20) % Serum Osmolality (280-300) mosm/kg Calcium (8.5-10.1) mg/dL Phosphorus (2.6-4.7) mg/dL Magnesium (1.8-2.4) mg/dl Total Bilirubin (0.2-1.0) mg/dL AST (15-37) U/L ALT (14-59) U/L Alkaline Phosphatase (46-116) U/L C-Reactive Protein (<1.0) mg/dL Total Protein (6.4-8.2) g/dl Albumin (3.4-5.0) g/dl Globulin gm/dL Albumin/Globulin Ratio (1-2) Lipase (73-393) U/L HCG, Qual Negative (NEGATIVE) Ketones (0.0-0.3) mM 08/22/19 08/22/19 08/22/19 Range/Units 21:05 22:52 23:58 WBC (3.98-10.04) K/mm3 RBC (3.98-5.22) M/mm3 Hgb (11.2-15.7) gm/dl Hct (34.1-44.9) % MCV (79.4-94.8) fl MCH (25.6-32.2) pg MCHC (32.2-35.5) g/dl RDW Std Deviation (36.4-46.3) fL Plt Count (182-369) K/mm3 MPV (9.4-12.3) fl Neut % (Auto) (34.0-71.1) % Lymph % (Auto) (19.3-51.7) % [place] % (Auto) (4.7-12.5) % Eos % (Auto) (0.7-5.8) Baso % (Auto) (0.1-1.2) % Neut # (Auto) (1.56-6.13) K/mm3 Lymph # (Auto) (1.18-3.74) K/mm3 [place] # (Auto) (0.24-0.36) K/mm3 Eos # (Auto) (0.04-0.36) K/mm3 Baso # (Auto) (0.01-0.08) K/mm3 Neutrophils % (Manual) (40-60) % Band Neutrophils % (0-10) % Lymphocytes % (Manual) (20-40) % Atypical Lymphs % % Monocytes % (Manual) (2-10) % Eosinophils % (Manual) (0.7-5.8) % Basophils % (Manual) (0.1-1.2) Hypersegmented Neuts Platelet Estimate RBC Morph Comment Puncture Site ABG pH (7.35-7.45) ABG pCO2 (35.0-45.0) mmHg ABG pO2 (80.0-100.0) mmHg ABG HCO3 (22.0-26.0) meq/L ABG O2 Saturation (96.0-97.0) % ABG Base Excess (-2-2.0) A-a Gradient mmHg O2 Delivery Device FiO2 (21.00-100.00) % Sodium 136 (136-145) mEq/L Potassium 4.9 (3.5-5.1) mEq/L Chloride 100 (98-107) mEq/L Carbon Dioxide < 5 L* D (21-32) mEq/L Anion Gap 35.9 H (5-15) BUN 36 H (7-18) mg/dL Creatinine 1.7 H (0.55-1.02) mg/dL Est Cr Clr Drug Dosing 43.24 mL/min Estimated GFR (MDRD) 34 (>60) mL/min BUN/Creatinine Ratio 21.2 H (14-18) Glucose 478 H 471 H 464 H (74-106) mg/dL POC Glucose (70-105) mg/dL Hemoglobin A1c (4.50-6.20) % Serum Osmolality (280-300) mosm/kg Calcium 9.1 (8.5-10.1) mg/dL Phosphorus 4.2 (2.6-4.7) mg/dL Magnesium (1.8-2.4) mg/dl Total Bilirubin (0.2-1.0) mg/dL AST (15-37) U/L ALT (14-59) U/L Alkaline Phosphatase (46-116) U/L C-Reactive Protein (<1.0) mg/dL Total Protein (6.4-8.2) g/dl Albumin (3.4-5.0) g/dl Globulin gm/dL Albumin/Globulin Ratio (1-2) Lipase (73-393) U/L HCG, Qual (NEGATIVE) Ketones (0.0-0.3) mM 08/23/19 08/23/19 08/23/19 Range/Units 01:02 02:05 03:07 WBC (3.98-10.04) K/mm3 RBC (3.98-5.22) M/mm3 Hgb (11.2-15.7) gm/dl Hct (34.1-44.9) % MCV (79.4-94.8) fl MCH (25.6-32.2) pg MCHC (32.2-35.5) g/dl RDW Std Deviation (36.4-46.3) fL Plt Count (182-369) K/mm3 MPV (9.4-12.3) fl Neut % (Auto) (34.0-71.1) % Lymph % (Auto) (19.3-51.7) % [place] % (Auto) (4.7-12.5) % Eos % (Auto) (0.7-5.8) Baso % (Auto) (0.1-1.2) % Neut # (Auto) (1.56-6.13) K/mm3 Lymph # (Auto) (1.18-3.74) K/mm3 [place] # (Auto) (0.24-0.36) K/mm3 Eos # (Auto) (0.04-0.36) K/mm3 Baso # (Auto) (0.01-0.08) K/mm3 Neutrophils % (Manual) (40-60) % Band Neutrophils % (0-10) % Lymphocytes % (Manual) (20-40) % Atypical Lymphs % % Monocytes % (Manual) (2-10) % Eosinophils % (Manual) (0.7-5.8) % Basophils % (Manual) (0.1-1.2) Hypersegmented Neuts Platelet Estimate RBC Morph Comment Puncture Site ABG pH (7.35-7.45) ABG pCO2 (35.0-45.0) mmHg ABG pO2 (80.0-100.0) mmHg ABG HCO3 (22.0-26.0) meq/L ABG O2 Saturation (96.0-97.0) % ABG Base Excess (-2-2.0) A-a Gradient mmHg O2 Delivery Device FiO2 (21.00-100.00) % Sodium (136-145) mEq/L Potassium (3.5-5.1) mEq/L Chloride (98-107) mEq/L Carbon Dioxide (21-32) mEq/L Anion Gap (5-15) BUN (7-18) mg/dL Creatinine (0.55-1.02) mg/dL Est Cr Clr Drug Dosing mL/min Estimated GFR (MDRD) (>60) mL/min BUN/Creatinine Ratio (14-18) Glucose (74-106) mg/dL POC Glucose 363 H 317 H 299 H (70-105) mg/dL Hemoglobin A1c (4.50-6.20) % Serum Osmolality (280-300) mosm/kg Calcium (8.5-10.1) mg/dL Phosphorus (2.6-4.7) mg/dL Magnesium (1.8-2.4) mg/dl Total Bilirubin (0.2-1.0) mg/dL AST (15-37) U/L ALT (14-59) U/L Alkaline Phosphatase (46-116) U/L C-Reactive Protein (<1.0) mg/dL Total Protein (6.4-8.2) g/dl Albumin (3.4-5.0) g/dl Globulin gm/dL Albumin/Globulin Ratio (1-2) Lipase (73-393) U/L HCG, Qual (NEGATIVE) Ketones (0.0-0.3) mM 08/23/19 08/23/19 08/23/19 Range/Units 03:28 04:10 05:03 WBC (3.98-10.04) K/mm3 RBC (3.98-5.22) M/mm3 Hgb (11.2-15.7) gm/dl Hct (34.1-44.9) % MCV (79.4-94.8) fl MCH (25.6-32.2) pg MCHC (32.2-35.5) g/dl RDW Std Deviation (36.4-46.3) fL Plt Count (182-369) K/mm3 MPV (9.4-12.3) fl Neut % (Auto) (34.0-71.1) % Lymph % (Auto) (19.3-51.7) % [place] % (Auto) (4.7-12.5) % Eos % (Auto) (0.7-5.8) Baso % (Auto) (0.1-1.2) % Neut # (Auto) (1.56-6.13) K/mm3 Lymph # (Auto) (1.18-3.74) K/mm3 [place] # (Auto) (0.24-0.36) K/mm3 Eos # (Auto) (0.04-0.36) K/mm3 Baso # (Auto) (0.01-0.08) K/mm3 Neutrophils % (Manual) (40-60) % Band Neutrophils % (0-10) % Lymphocytes % (Manual) (20-40) % Atypical Lymphs % % Monocytes % (Manual) (2-10) % Eosinophils % (Manual) (0.7-5.8) % Basophils % (Manual) (0.1-1.2) Hypersegmented Neuts Platelet Estimate RBC Morph Comment Puncture Site ABG pH (7.35-7.45) ABG pCO2 (35.0-45.0) mmHg ABG pO2 (80.0-100.0) mmHg ABG HCO3 (22.0-26.0) meq/L ABG O2 Saturation (96.0-97.0) % ABG Base Excess (-2-2.0) A-a Gradient mmHg O2 Delivery Device FiO2 (21.00-100.00) % Sodium 137 (136-145) mEq/L Potassium 4.7 (3.5-5.1) mEq/L Chloride 105 (98-107) mEq/L Carbon Dioxide 10 L (21-32) mEq/L Anion Gap 26.7 H (5-15) BUN 35 H (7-18) mg/dL Creatinine 1.6 H (0.55-1.02) mg/dL Est Cr Clr Drug Dosing 45.94 mL/min Estimated GFR (MDRD) 37 (>60) mL/min BUN/Creatinine Ratio 21.9 H (14-18) Glucose 319 H (74-106) mg/dL POC Glucose 268 H 267 H (70-105) mg/dL Hemoglobin A1c (4.50-6.20) % Serum Osmolality (280-300) mosm/kg Calcium 8.8 (8.5-10.1) mg/dL Phosphorus (2.6-4.7) mg/dL Magnesium (1.8-2.4) mg/dl Total Bilirubin (0.2-1.0) mg/dL AST (15-37) U/L ALT (14-59) U/L Alkaline Phosphatase (46-116) U/L C-Reactive Protein (<1.0) mg/dL Total Protein (6.4-8.2) g/dl Albumin (3.4-5.0) g/dl Globulin gm/dL Albumin/Globulin Ratio (1-2) Lipase (73-393) U/L HCG, Qual (NEGATIVE) Ketones (0.0-0.3) mM 08/23/19 08/23/19 08/23/19 Range/Units 06:05 06:30 06:30 WBC 11.51 H (3.98-10.04) K/mm3 RBC 4.55 (3.98-5.22) M/mm3 Hgb 13.4 D (11.2-15.7) gm/dl Hct 39.5 (34.1-44.9) % MCV 86.8 (79.4-94.8) fl MCH 29.5 (25.6-32.2) pg MCHC 33.9 (32.2-35.5) g/dl RDW Std Deviation 39.6 (36.4-46.3) fL Plt Count 178 L (182-369) K/mm3 MPV 10.1 (9.4-12.3) fl Neut % (Auto) 75.0 H (34.0-71.1) % Lymph % (Auto) 17.4 L (19.3-51.7) % [place] % (Auto) 7.1 (4.7-12.5) % Eos % (Auto) 0 L (0.7-5.8) Baso % (Auto) 0.1 (0.1-1.2) % Neut # (Auto) 8.63 H (1.56-6.13) K/mm3 Lymph # (Auto) 2.00 (1.18-3.74) K/mm3 [place] # (Auto) 0.82 H (0.24-0.36) K/mm3 Eos # (Auto) 0.00 L (0.04-0.36) K/mm3 Baso # (Auto) 0.01 (0.01-0.08) K/mm3 Neutrophils % (Manual) (40-60) % Band Neutrophils % (0-10) % Lymphocytes % (Manual) (20-40) % Atypical Lymphs % % Monocytes % (Manual) (2-10) % Eosinophils % (Manual) (0.7-5.8) % Basophils % (Manual) (0.1-1.2) Hypersegmented Neuts Platelet Estimate RBC Morph Comment Puncture Site ABG pH (7.35-7.45) ABG pCO2 (35.0-45.0) mmHg ABG pO2 (80.0-100.0) mmHg ABG HCO3 (22.0-26.0) meq/L ABG O2 Saturation (96.0-97.0) % ABG Base Excess (-2-2.0) A-a Gradient mmHg O2 Delivery Device FiO2 (21.00-100.00) % Sodium 137 (136-145) mEq/L Potassium 4.3 (3.5-5.1) mEq/L Chloride 105 (98-107) mEq/L Carbon Dioxide 15 L (21-32) mEq/L Anion Gap 21.3 H (5-15) BUN 36 H (7-18) mg/dL Creatinine 1.6 H (0.55-1.02) mg/dL Est Cr Clr Drug Dosing 45.94 mL/min Estimated GFR (MDRD) 37 (>60) mL/min BUN/Creatinine Ratio 22.5 H (14-18) Glucose 276 H (74-106) mg/dL POC Glucose 267 H (70-105) mg/dL Hemoglobin A1c (4.50-6.20) % Serum Osmolality (280-300) mosm/kg Calcium 8.6 (8.5-10.1) mg/dL Phosphorus (2.6-4.7) mg/dL Magnesium (1.8-2.4) mg/dl Total Bilirubin (0.2-1.0) mg/dL AST (15-37) U/L ALT (14-59) U/L Alkaline Phosphatase (46-116) U/L C-Reactive Protein (<1.0) mg/dL Total Protein (6.4-8.2) g/dl Albumin (3.4-5.0) g/dl Globulin gm/dL Albumin/Globulin Ratio (1-2) Lipase (73-393) U/L HCG, Qual (NEGATIVE) Ketones (0.0-0.3) mM 08/23/19 Range/Units 07:02 WBC (3.98-10.04) K/mm3 RBC (3.98-5.22) M/mm3 Hgb (11.2-15.7) gm/dl Hct (34.1-44.9) % MCV (79.4-94.8) fl MCH (25.6-32.2) pg MCHC (32.2-35.5) g/dl RDW Std Deviation (36.4-46.3) fL Plt Count (182-369) K/mm3 MPV (9.4-12.3) fl Neut % (Auto) (34.0-71.1) % Lymph % (Auto) (19.3-51.7) % [place] % (Auto) (4.7-12.5) % Eos % (Auto) (0.7-5.8) Baso % (Auto) (0.1-1.2) % Neut # (Auto) (1.56-6.13) K/mm3 Lymph # (Auto) (1.18-3.74) K/mm3 [place] # (Auto) (0.24-0.36) K/mm3 Eos # (Auto) (0.04-0.36) K/mm3 Baso # (Auto) (0.01-0.08) K/mm3 Neutrophils % (Manual) (40-60) % Band Neutrophils % (0-10) % Lymphocytes % (Manual) (20-40) % Atypical Lymphs % % Monocytes % (Manual) (2-10) % Eosinophils % (Manual) (0.7-5.8) % Basophils % (Manual) (0.1-1.2) Hypersegmented Neuts Platelet Estimate RBC Morph Comment Puncture Site ABG pH (7.35-7.45) ABG pCO2 (35.0-45.0) mmHg ABG pO2 (80.0-100.0) mmHg ABG HCO3 (22.0-26.0) meq/L ABG O2 Saturation (96.0-97.0) % ABG Base Excess (-2-2.0) A-a Gradient mmHg O2 Delivery Device FiO2 (21.00-100.00) % Sodium (136-145) mEq/L Potassium (3.5-5.1) mEq/L Chloride (98-107) mEq/L Carbon Dioxide (21-32) mEq/L Anion Gap (5-15) BUN (7-18) mg/dL Creatinine (0.55-1.02) mg/dL Est Cr Clr Drug Dosing mL/min Estimated GFR (MDRD) (>60) mL/min BUN/Creatinine Ratio (14-18) Glucose (74-106) mg/dL POC Glucose 241 H (70-105) mg/dL Hemoglobin A1c (4.50-6.20) % Serum Osmolality (280-300) mosm/kg Calcium (8.5-10.1) mg/dL Phosphorus (2.6-4.7) mg/dL Magnesium (1.8-2.4) mg/dl Total Bilirubin (0.2-1.0) mg/dL AST (15-37) U/L ALT (14-59) U/L Alkaline Phosphatase (46-116) U/L C-Reactive Protein (<1.0) mg/dL Total Protein (6.4-8.2) g/dl Albumin (3.4-5.0) g/dl Globulin gm/dL Albumin/Globulin Ratio (1-2) Lipase (73-393) U/L HCG, Qual (NEGATIVE) Ketones (0.0-0.3) mM Med Orders - Current: Current Medications Acetaminophen (Tylenol) 650 mg PO Q4H PRN PRN Reason: Pain (Mild 1-3)/fever Albuterol/Ipratropium (Duoneb 3.0-0.5 Mg/3 Ml) 3 ml NEB Q4H PRN PRN Reason: Shortness Of Breath/wheezing Hydralazine HCl (Apresoline) 20 mg IVPUSH Q4H PRN PRN Reason: Hypertension Insulin Human Regular 100 unit (/ Sodium Chloride) 100 mls @ 6 mls/hr IV TITRATE TONIO; Protocol Last Titration: 08/23/19 07:11 Dose: 8 unit/hr, 8 mls/hr Sodium Bicarbonate 150 meq/ (Dextrose/Water) 1,150 mls @ 100 mls/hr IV ONETIME ONE Stop: 08/23/19 11:04 Last Admin: 08/23/19 00:57 Dose: 100 mls/hr Dextrose/Water (Dextrose 5% In Water) 1,000 mls @ 150 mls/hr IV ASDIRECTED TONIO Last Admin: 08/23/19 07:13 Dose: 150 mls/hr Ibuprofen (Motrin) 600 mg PO Q6H PRN PRN Reason: Pain Ketorolac Tromethamine (Toradol) 30 mg IV Q6H PRN PRN Reason: Pain (moderate 4-6) Stop: 08/27/19 04:01 Metoprolol Tartrate (Lopressor) 5 mg IVPUSH Q4H PRN PRN Reason: Tachycardia Miscellaneous Information (Remove Patch) 1 ea TRDERM DAILY [facility] Nicotine (Habitrol) 21 mg TRDERM DAILY [facility] Ondansetron HCl (Zofran) 4 mg IV Q6H PRN PRN Reason: Nausea/Vomiting Last Admin: 08/23/19 07:16 Dose: 4 mg Pantoprazole Sodium (Protonix Iv) 40 mg IV Q12HR [facility] Potassium Chloride (Klor-Con 10) 60 meq PO ONETIME ONE Stop: 08/23/19 08:01 Sodium Chloride (Saline Flush) 10 ml FLUSH ASDIRECTED PRN PRN Reason: Keep Vein Open Last Admin: 08/22/19 20:34 Dose: 10 ml Temazepam (Restoril) 15 mg PO BEDTIME PRN PRN Reason: Sleep Last Admin: 08/22/19 23:49 Dose: 15 mg Discontinued Medications Hydrocodone Bitart/Acetaminophen ([place] 325-5 Mg) 1 tab PO Q4H PRN PRN Reason: Pain (moderate 4-6) Hydromorphone HCl (Dilaudid) 0.25 mg IVPUSH Q2H PRN PRN Reason: Pain (severe 7-10) Sodium Chloride (Normal Saline) 1,000 mls @ 999 mls/hr IV ONETIME ONE Stop: 08/22/19 19:03 Last Admin: 08/22/19 20:34 Dose: Not Given Sodium Chloride (Normal Saline) 1,000 mls @ 999 mls/hr IV ONETIME ONE Stop: 08/22/19 20:37 Last Admin: 08/22/19 20:34 Dose: 999 mls/hr Lactated Ringer's (Ringers, Lactated) 1,000 mls @ 999 mls/hr IV .BOLUS ONE Stop: 08/22/19 21:23 Last Admin: 08/22/19 21:48 Dose: 999 mls/hr Lactated Ringer's (Ringers, Lactated) 1,000 mls @ 999 mls/hr IV .BOLUS ONE Stop: 08/22/19 23:02 Last Admin: 08/23/19 00:09 Dose: 999 mls/hr Insulin Human Regular 100 unit (/ Sodium Chloride) 100 mls @ 381.01 mls/hr IV TITRATE TONIO; Protocol Lactated Ringer's (Ringers, Lactated) 1,000 mls @ 999 mls/hr IV ONETIME ONE Stop: 08/23/19 00:33 Last Admin: 08/23/19 00:32 Dose: Not Given Insulin Human Regular (Humulin R) 5 unit SUBCUT BIDAC TONIO Last Admin: 08/22/19 19:45 Dose: 5 units Insulin Human Regular (Humulin R) Confirm Administered Dose 300 unit .ROUTE .STK -MED ONE Stop: 08/22/19 19:43 Last Admin: 08/22/19 20:23 Dose: Not Given Ketorolac Tromethamine (Toradol) 15 mg IVPUSH ONETIME ONE Stop: 08/22/19 21:47 Last Admin: 08/22/19 21:54 Dose: 15 mg Metoclopramide HCl (Reglan) 7.5 mg IVPUSH ONETIME ONE Stop: 08/22/19 18:04 Last Admin: 08/22/19 20:25 Dose: 7.5 mg Ondansetron HCl (Zofran) 4 mg IVPUSH ONETIME ONE Stop: 08/22/19 21:51 Last Admin: 08/22/19 21:54 Dose: 4 mg Ondansetron HCl (Zofran) Confirm Administered Dose 4 mg .ROUTE .STK-MED ONE Stop: 08/22/19 21:54 Last Admin: 08/22/19 22:02 Dose: Not Given Pantoprazole Sodium (Protonix Iv) 20 mg IVPUSH ONETIME ONE Stop: 08/22/19 22:01 Last Admin: 08/22/19 23:23 Dose: 20 mg Potassium Chloride (Klor-Con 10) 60 meq PO ONETIME ONE Stop: 08/22/19 23:34 Last Admin: 08/22/19 23:50 Dose: 60 meq Sodium Bicarbonate (Sodium Bicarbonate 8.4%) Confirm Administered Dose 100 meq .ROUTE .STK-MED ONE Stop: 08/23/19 00:40 Last Admin: 08/23/19 01:13 Dose: Not Given Sodium Chloride (Normal Saline) 10 ml IV ASDIRECTED PRN PRN Reason: Other Last Admin: 08/22/19 20:34 Dose: 10 ml - Exam General: Alert, Oriented, Cooperative, No Acute Distress HEENT: Pupils Equal, Pupils Reactive, EOMI, Mucous Membr. Moist/Antares Neck: Supple Lungs: Clear to Auscultation, Normal Respiratory Effort Cardiovascular: Regular Rate, Regular Rhythm GI/Abdominal Exam: Normal Bowel Sounds, Soft, No Organomegaly, No Distention, No Abnormal Bruit, No Mass, Tender (epigastric ). No: Guarding, Rigid, Rebound , Hepatomegaly (Female) Exam: Deferred Back Exam: Normal Inspection, Decreased Range of Motion Extremities: Normal Inspection, Normal Range of Motion, Non-Tender, No Pedal Edema, Normal Capillary Refill Peripheral Pulses: 2+: Dorsalis Pedis (L), Dorsalis Pedis (R) Skin: Warm, Dry, Intact Neurological: No New Focal Deficit. No: Normal Gait Psy/Mental Status: Alert, Normal Affect, Normal Mood - Problem List Review Problem List Initiated/Reviewed/Updated: Yes - My Orders Last 24 Hours: My Active Orders 08/22/19 22:28 Height and Weight [RC] 0400 Oxygen Therapy [RC] PRN Up With Assistance [RC] ASDIRECTED Up ad Brittany [RC] ASDIRECTED VTE/DVT Education [RC] PER UNIT ROUTINE Vital Signs [RC] Q4HR Acetaminophen [Tylenol] 650 mg PO Q4H PRN Albuterol/Ipratropium [DuoNeb 3.0-0.5 MG/3 ML] 3 ml NEB Q4H PRN Ondansetron [Zofran] 4 mg IV Q6H PRN Temazepam [Restoril] 15 mg PO BEDTIME PRN Resuscitation Status Routine 08/22/19 22:29 Antiembolic Devices [RC] PER UNIT ROUTINE Cardiac Monitoring [RC] CONTINUOUS Intake and Output [RC] 04,16 Sequential Compression Device [OM.PC] Per Unit Routine 08/22/19 22:30 RT Aerosol Therapy [RC] ASDIRECTED 08/22/19 22:31 Consult to Case Management/Strap Maker [CONS] Routine Consult to Diabetic Nurse Specialist [CONS] Routine Consult to Operating Room Aide [CONS] Routine 08/22/19 22:34 Metoprolol Tartrate [Lopressor] 5 mg IVPUSH Q4H PRN hydrALAZINE [Apresoline] 20 mg IVPUSH Q4H PRN 08/22/19 22:37 MICROALBUMIN/CREAT RATIO,URINE [URCHEM] Stat 08/22/19 23:03 Insulin Regular, Human [HumuLIN R] 100 unit Sodium Chloride 0.9% [Normal Saline] 99 ml IV TITRATE 08/22/19 23:35 Sodium Bicarbonate [Sodium Bicarbonate 8.4%] 150 meq Dextrose 5% in Water 1, 000 ml IV ONETIME 08/22/19 Dinner Nothing per Oral Now Diet [DIET] 08/23/19 02:30 BASIC METABOLIC PANEL,BMP [CHEM] Q4H 08/23/19 04:00 Ketorolac [Toradol] 30 mg IV Q6H PRN 08/23/19 04:45 Dextrose 5% in Water 1,000 ml IV ASDIRECTED 08/23/19 06:30 LIPID PANEL [CHEM] AM PHOSPHORUS [CHEM] AM 08/23/19 08:00 Potassium Chloride [Klor-Con 10] 60 meq PO ONETIME ONE 08/23/19 09:00 Nicotine [Habitrol] 21 mg TRDERM DAILY Pantoprazole [ProTONIX IV] 40 mg IV Q12HR 08/23/19 10:30 BASIC METABOLIC PANEL,BMP [CHEM] Q4H 08/23/19 14:30 BASIC METABOLIC PANEL,BMP [CHEM] Q4H 08/23/19 18:30 BASIC METABOLIC PANEL,BMP [CHEM] Q4H 08/23/19 22:30 BASIC METABOLIC PANEL,BMP [CHEM] Q4H MAGNESIUM [CHEM] Q4H 08/24/19 02:30 BASIC METABOLIC PANEL,BMP [CHEM] Q4H MAGNESIUM [CHEM] Q4H 08/24/19 05:11 CBC WITH AUTO DIFF [HEME] AM PHOSPHORUS [CHEM] AM 08/24/19 06:30 MAGNESIUM [CHEM] Q4H 08/24/19 09:00 Remove Patch 1 ea TRDERM DAILY 08/24/19 10:30 MAGNESIUM [CHEM] Q4H 08/24/19 14:30 MAGNESIUM [CHEM] Q4H 08/24/19 18:30 MAGNESIUM [CHEM] Q4H 08/24/19 22:30 MAGNESIUM [CHEM] Q4H 08/25/19 02:30 MAGNESIUM [CHEM] Q4H 08/25/19 05:11 CBC WITH AUTO DIFF [HEME] AM PHOSPHORUS [CHEM] AM 08/26/19 05:11 CBC WITH AUTO DIFF [HEME] AM PHOSPHORUS [CHEM] AM 08/27/19 10:00 Ibuprofen [Motrin] 600 mg PO Q6H PRN - Plan Plan:: Assessment: Acute: Permissive Hyperglycemia - BS in the 200s-300s - She currently on glucose drip - Monitor BS with ISS coverage Acute Kidney Injury, Improved - BUN of 32 and Cr of 1.8--> 1.4 - 2/2 Volume Depletion - Received initial volume resuscitation in ED but not adequate Inadequate IV Access - Requested PICC line while patient while still in ED but only got peripheral access line - Now the vein blew on the only IV access 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 - Taking a shower helps with her symptoms - UDS is positive for THC; she is a regular user according to her along with Meth - Reglan and Scopolamine patch for symptomatic control - She may re-GAP if she does not eat Coffee-Ground Emesis - Unsure if she had gotten charcoal - Gastric-occult test - PPI BID Marijuana Abuse - Abuse of recreational THC - May explain why she is throwing but symptoms helps if she takes a hot shower Resolved: S/p DKA - Presented to ED complaints of nausea and vomiting for the past 5 days - She was seen in ED 4 days ago but was sent home - Last A1C 9 on 07/12/2019 - Took her usual SA and LA insulin - Presents with 347 glucose level - Insulin drip S/p Erythrocytosis - Hgb of 17.1-->13.4 - Likely 2/2 hemo-concentration from DKA - She is dehydrated from DKA and GI loss S/p Increased AG with Metabolic Acidosis - 2/2 DKA - AG of 36.9 and CO2 of <5--> now 23 - IV hydration Chronic: HTN, Dysphagia, Chronic Diarrhea, GERD, IBS, Nausea, OA/DJD, Back Pain , Migraines, Seizure Disorder, DM1,Hx/o PE/DVT, Hx/o IDVU, Hx/o MRSA, Eczema, Psoriasis, Anxiety, Depression as well as Hx/o Meth and Marijuana Abuse Plan: She is symptomatic this morning and vomited with dark colored substance Continue Indulin drip UDS - Positive for Benzo and THC UA- Negative for UTI IV Aggressive Hydration Accu-check now QID DVT/GI Prophylaxis Dietary and Diabetic Education ADA diet if able to tolerate crackers and soda SW/CM for d/c planning Code status: 1 Additional orders as above If she remains symptomatic, she may re-GAP. Consider keeping her on glucose drip with ISS coverage. If no better tomorrow, we will aim for gastric emptying study.
[2019-08-23] MEDS ORDERED: Potassium Chloride 10 MEQ Tab.ER PO ONE (08:00)
[2019-08-23] MEDS ORDERED: Pantoprazole 40 MG Vial IV SCH (09:00)
[2019-08-23] MEDS: Pantoprazole 40 MG Tab.CR PO SCH ×2 (09:01→20:01)
[2019-08-23] MEDS: Nicotine 21 MG/24 Hr Patch TRDERM SCH (09:03)
[2019-08-23] MEDS ORDERED: Scopolamine 1.5 MG Transdermal Patch TRDERM ONE (13:00)
[2019-08-23] MEDS: Metoclopramide 10 MG/2 ML SDV IVPUSH PRN ×2 (13:23→19:59)
--- NOTE | 2019-08-23 14:09 | CR ---
Abdomen: Supine view of the abdomen was obtained. Comparison: Previous abdominal series of 06/21/19. Surgical clips are seen from prior cholecystectomy. Bowel gas pattern is normal. Calcification is seen within the pelvis most likely representing phlebolith. Incidental bone island is noted to the left of the sacroiliac joint. Surgical anastomotic sutures are seen within the right abdomen. Impression: 1. Incidental findings. Nothing acute is seen. Diagnostic code #2
[2019-08-23] MEDS: Temazepam 15 MG Cap PO PRN (20:01)
--- NOTE | 2019-08-23 21:08 | PCM.SN ---
- Free Text/Narrative Note: Patient re-GAP'd with an AG level of 23.9 from 12 earlier today. She has not had anything solid to eat since this morning due to nausea and vomiting. We will re-start DKA treatment and resume insulin drip.
[2019-08-23] MEDS: Dextrose 5%-0.9% NaCl 1,000 ML IV SCH (21:21)
[2019-08-23] MEDS: Pantoprazole 40 MG Vial IVPUSH SCH (21:22)
[2019-08-23] MEDS ORDERED: Insulin Glarg,Human.Rec.Analog 100 UNIT/ML ML SUBCUT STA (23:08)
[2019-08-24] MEDS: Metoclopramide 10 MG/2 ML SDV IVPUSH PRN (01:57)
[2019-08-24] MEDS: Dextrose 5%-0.9% NaCl 1,000 ML IV SCH ×2 (04:20→11:07)
[2019-08-24] MEDS ORDERED: Potassium Chloride 20 MEQ Tab.ER PO ONE (07:30)
[2019-08-24] MEDS ORDERED: Magnesium Sulfate/Water 4 GM in Premix Bag 1 BAG IV ONE (07:30)
--- NOTE | 2019-08-24 08:03 | PCM.SN ---
- Free Text/Narrative Note: 08/23/19 [id number] IV started 20 guage left antecubital times 1 attempt. Secured and flushes well. Iesha
[2019-08-24] MEDS ORDERED: 50% Dextrose in Water 50 ML Syringe IVPUSH PRN (08:18)
[2019-08-24] MEDS: Ketorolac 15 MG/ML SDV IVPUSH PRN ×2 (08:26→16:46)
[2019-08-24] MEDS: Pantoprazole 40 MG Vial IVPUSH SCH ×2 (08:30→20:05)
[2019-08-24] MEDS: Nicotine 21 MG/24 Hr Patch TRDERM SCH (08:38)
[2019-08-24] MEDS: Ondansetron 4 MG/2 ML SDV IV PRN (12:43)
[2019-08-24] MEDS: HYDROmorphone 1 MG/ML Syringe IVPUSH PRN ×3 (13:11→21:52)
[2019-08-24] MEDS ORDERED: Dextrose 5%-0.9% NaCl 1,000 ML IV SCH (14:30)
--- NOTE | 2019-08-24 16:39 | PCM.PN ---
<Vamshi Sharma - Last Filed: 08/24/19 16:34> - General Info Date of Service: 08/24/19 - Review of Systems General: Reports: No Symptoms HEENT: Reports: No Symptoms Pulmonary: Reports: No Symptoms Cardiovascular: Reports: No Symptoms Gastrointestinal: Reports: Abdominal Pain, Nausea, Vomiting 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: Reports: No Symptoms Musculoskeletal: Reports: No Symptoms Skin: Reports: No Symptoms Neurological: Reports: No Symptoms Psychiatric: Reports: No Symptoms Systems Review Comment:: Nothing significant overnight. Pt states that she is having significant abdominal pain today and is requesting pain medication. - Patient Data Vitals - Most Recent: Last Vital Signs Temp 97.8 F 08/24/19 16:00 Pulse 91 08/24/19 11:00 Resp 18 08/24/19 16:00 BP 100/69 08/24/19 16:00 Pulse Ox 98 08/24/19 16:00 Weight - Most Recent: 60 kg I&O - Last 24 Hours: Intake & Output 08/24/19 08/24/19 08/24/19 06:59 14:59 22:59 Intake Total 1011 1541 Output Total 1200 1000 Balance -189 541 Lab Results Last 24 Hours: Laboratory Results - last 24 hr 08/23/19 08/23/19 08/23/19 Range/Units 16:51 19:58 20:21 WBC (3.98-10.04) K/mm3 RBC (3.98-5.22) M/mm3 Hgb (11.2-15.7) gm/dl Hct (34.1-44.9) % MCV (79.4-94.8) fl MCH (25.6-32.2) pg MCHC (32.2-35.5) g/dl RDW Std Deviation (36.4-46.3) fL Plt Count (182-369) K/mm3 MPV (9.4-12.3) fl Neut % (Auto) (34.0-71.1) % Lymph % (Auto) (19.3-51.7) % Parker % (Auto) (4.7-12.5) % Eos % (Auto) (0.7-5.8) Baso % (Auto) (0.1-1.2) % Neut # (Auto) (1.56-6.13) K/mm3 Lymph # (Auto) (1.18-3.74) K/mm3 Parker # (Auto) (0.24-0.36) K/mm3 Eos # (Auto) (0.04-0.36) K/mm3 Baso # (Auto) (0.01-0.08) K/mm3 Sodium 135 L (136-145) mEq/L Potassium 4.9 (3.5-5.1) mEq/L Chloride 101 (98-107) mEq/L Carbon Dioxide 15 L (21-32) mEq/L Anion Gap 23.9 H (5-15) BUN 21 H (7-18) mg/dL Creatinine 1.3 H (0.55-1.02) mg/dL Est Cr Clr Drug Dosing 56.54 mL/min Estimated GFR (MDRD) 47 (>60) mL/min BUN/Creatinine Ratio 16.2 (14-18) Glucose 347 H (74-106) mg/dL POC Glucose 258 H 304 H (70-105) mg/dL Calcium 9.0 (8.5-10.1) mg/dL Phosphorus (2.6-4.7) mg/dL Magnesium 1.8 (1.8-2.4) mg/dl 08/23/19 08/23/19 08/24/19 Range/Units 22:50 22:50 00:15 WBC (3.98-10.04) K/mm3 RBC (3.98-5.22) M/mm3 Hgb (11.2-15.7) gm/dl Hct (34.1-44.9) % MCV (79.4-94.8) fl MCH (25.6-32.2) pg MCHC (32.2-35.5) g/dl RDW Std Deviation (36.4-46.3) fL Plt Count (182-369) K/mm3 MPV (9.4-12.3) fl Neut % (Auto) (34.0-71.1) % Lymph % (Auto) (19.3-51.7) % Parker % (Auto) (4.7-12.5) % Eos % (Auto) (0.7-5.8) Baso % (Auto) (0.1-1.2) % Neut # (Auto) (1.56-6.13) K/mm3 Lymph # (Auto) (1.18-3.74) K/mm3 Parker # (Auto) (0.24-0.36) K/mm3 Eos # (Auto) (0.04-0.36) K/mm3 Baso # (Auto) (0.01-0.08) K/mm3 Sodium 138 (136-145) mEq/L Potassium 3.4 L D (3.5-5.1) mEq/L Chloride 105 (98-107) mEq/L Carbon Dioxide 20 L (21-32) mEq/L Anion Gap 16.4 H (5-15) BUN 20 H (7-18) mg/dL Creatinine 1.4 H (0.55-1.02) mg/dL Est Cr Clr Drug Dosing 52.50 mL/min Estimated GFR (MDRD) 43 (>60) mL/min BUN/Creatinine Ratio 14.3 (14-18) Glucose 363 H 298 H (74-106) mg/dL POC Glucose (70-105) mg/dL Calcium 8.6 (8.5-10.1) mg/dL Phosphorus (2.6-4.7) mg/dL Magnesium 2.0 (1.8-2.4) mg/dl 08/24/19 08/24/19 08/24/19 Range/Units 00:15 00:50 01:48 WBC (3.98-10.04) K/mm3 RBC (3.98-5.22) M/mm3 Hgb (11.2-15.7) gm/dl Hct (34.1-44.9) % MCV (79.4-94.8) fl MCH (25.6-32.2) pg MCHC (32.2-35.5) g/dl RDW Std Deviation (36.4-46.3) fL Plt Count (182-369) K/mm3 MPV (9.4-12.3) fl Neut % (Auto) (34.0-71.1) % Lymph % (Auto) (19.3-51.7) % Parker % (Auto) (4.7-12.5) % Eos % (Auto) (0.7-5.8) Baso % (Auto) (0.1-1.2) % Neut # (Auto) (1.56-6.13) K/mm3 Lymph # (Auto) (1.18-3.74) K/mm3 Parker # (Auto) (0.24-0.36) K/mm3 Eos # (Auto) (0.04-0.36) K/mm3 Baso # (Auto) (0.01-0.08) K/mm3 Sodium (136-145) mEq/L Potassium (3.5-5.1) mEq/L Chloride (98-107) mEq/L Carbon Dioxide (21-32) mEq/L Anion Gap (5-15) BUN (7-18) mg/dL Creatinine (0.55-1.02) mg/dL Est Cr Clr Drug Dosing mL/min Estimated GFR (MDRD) (>60) mL/min BUN/Creatinine Ratio (14-18) Glucose (74-106) mg/dL POC Glucose 233 H 234 H 194 H (70-105) mg/dL Calcium (8.5-10.1) mg/dL Phosphorus (2.6-4.7) mg/dL Magnesium (1.8-2.4) mg/dl 08/24/19 08/24/19 08/24/19 Range/Units 02:54 04:15 04:16 WBC (3.98-10.04) K/mm3 RBC (3.98-5.22) M/mm3 Hgb (11.2-15.7) gm/dl Hct (34.1-44.9) % MCV (79.4-94.8) fl MCH (25.6-32.2) pg MCHC (32.2-35.5) g/dl RDW Std Deviation (36.4-46.3) fL Plt Count (182-369) K/mm3 MPV (9.4-12.3) fl Neut % (Auto) (34.0-71.1) % Lymph % (Auto) (19.3-51.7) % Parker % (Auto) (4.7-12.5) % Eos % (Auto) (0.7-5.8) Baso % (Auto) (0.1-1.2) % Neut # (Auto) (1.56-6.13) K/mm3 Lymph # (Auto) (1.18-3.74) K/mm3 Parker # (Auto) (0.24-0.36) K/mm3 Eos # (Auto) (0.04-0.36) K/mm3 Baso # (Auto) (0.01-0.08) K/mm3 Sodium (136-145) mEq/L Potassium (3.5-5.1) mEq/L Chloride (98-107) mEq/L Carbon Dioxide (21-32) mEq/L Anion Gap (5-15) BUN (7-18) mg/dL Creatinine (0.55-1.02) mg/dL Est Cr Clr Drug Dosing mL/min Estimated GFR (MDRD) (>60) mL/min BUN/Creatinine Ratio (14-18) Glucose (74-106) mg/dL POC Glucose 177 H 113 H (70-105) mg/dL Calcium (8.5-10.1) mg/dL Phosphorus (2.6-4.7) mg/dL Magnesium 1.7 L (1.8-2.4) mg/dl 08/24/19 08/24/19 08/24/19 Range/Units 04:16 04:16 04:16 WBC 8.57 (3.98-10.04) K/mm3 RBC 4.25 (3.98-5.22) M/mm3 Hgb 12.6 (11.2-15.7) gm/dl Hct 36.4 (34.1-44.9) % MCV 85.6 (79.4-94.8) fl MCH 29.6 (25.6-32.2) pg MCHC 34.6 (32.2-35.5) g/dl RDW Std Deviation 38.2 (36.4-46.3) fL Plt Count 148 L (182-369) K/mm3 MPV 10.1 (9.4-12.3) fl Neut % (Auto) 63.8 (34.0-71.1) % Lymph % (Auto) 30.5 (19.3-51.7) % Parker % (Auto) 4.9 (4.7-12.5) % Eos % (Auto) 0.5 L (0.7-5.8) Baso % (Auto) 0.1 (0.1-1.2) % Neut # (Auto) 5.47 (1.56-6.13) K/mm3 Lymph # (Auto) 2.61 (1.18-3.74) K/mm3 Parker # (Auto) 0.42 H (0.24-0.36) K/mm3 Eos # (Auto) 0.04 (0.04-0.36) K/mm3 Baso # (Auto) 0.01 (0.01-0.08) K/mm3 Sodium 142 (136-145) mEq/L Potassium 3.2 L (3.5-5.1) mEq/L Chloride 109 H (98-107) mEq/L Carbon Dioxide 25 (21-32) mEq/L Anion Gap 11.2 (5-15) BUN 17 (7-18) mg/dL Creatinine 1.3 H (0.55-1.02) mg/dL Est Cr Clr Drug Dosing 56.54 mL/min Estimated GFR (MDRD) 47 (>60) mL/min BUN/Creatinine Ratio 13.1 L (14-18) Glucose 132 H (74-106) mg/dL POC Glucose (70-105) mg/dL Calcium 8.4 L (8.5-10.1) mg/dL Phosphorus 0.9 L (2.6-4.7) mg/dL Magnesium (1.8-2.4) mg/dl 08/24/19 08/24/19 08/24/19 Range/Units 05:04 05:56 06:53 WBC (3.98-10.04) K/mm3 RBC (3.98-5.22) M/mm3 Hgb (11.2-15.7) gm/dl Hct (34.1-44.9) % MCV (79.4-94.8) fl MCH (25.6-32.2) pg MCHC (32.2-35.5) g/dl RDW Std Deviation (36.4-46.3) fL Plt Count (182-369) K/mm3 MPV (9.4-12.3) fl Neut % (Auto) (34.0-71.1) % Lymph % (Auto) (19.3-51.7) % Parker % (Auto) (4.7-12.5) % Eos % (Auto) (0.7-5.8) Baso % (Auto) (0.1-1.2) % Neut # (Auto) (1.56-6.13) K/mm3 Lymph # (Auto) (1.18-3.74) K/mm3 Parker # (Auto) (0.24-0.36) K/mm3 Eos # (Auto) (0.04-0.36) K/mm3 Baso # (Auto) (0.01-0.08) K/mm3 Sodium (136-145) mEq/L Potassium (3.5-5.1) mEq/L Chloride (98-107) mEq/L Carbon Dioxide (21-32) mEq/L Anion Gap (5-15) BUN (7-18) mg/dL Creatinine (0.55-1.02) mg/dL Est Cr Clr Drug Dosing mL/min Estimated GFR (MDRD) (>60) mL/min BUN/Creatinine Ratio (14-18) Glucose (74-106) mg/dL POC Glucose 126 H 102 98 (70-105) mg/dL Calcium (8.5-10.1) mg/dL Phosphorus (2.6-4.7) mg/dL Magnesium (1.8-2.4) mg/dl 08/24/19 08/24/19 08/24/19 Range/Units 07:57 07:57 08:10 WBC (3.98-10.04) K/mm3 RBC (3.98-5.22) M/mm3 Hgb (11.2-15.7) gm/dl Hct (34.1-44.9) % MCV (79.4-94.8) fl MCH (25.6-32.2) pg MCHC (32.2-35.5) g/dl RDW Std Deviation (36.4-46.3) fL Plt Count (182-369) K/mm3 MPV (9.4-12.3) fl Neut % (Auto) (34.0-71.1) % Lymph % (Auto) (19.3-51.7) % Parker % (Auto) (4.7-12.5) % Eos % (Auto) (0.7-5.8) Baso % (Auto) (0.1-1.2) % Neut # (Auto) (1.56-6.13) K/mm3 Lymph # (Auto) (1.18-3.74) K/mm3 Parker # (Auto) (0.24-0.36) K/mm3 Eos # (Auto) (0.04-0.36) K/mm3 Baso # (Auto) (0.01-0.08) K/mm3 Sodium 142 (136-145) mEq/L Potassium 3.3 L (3.5-5.1) mEq/L Chloride 109 H (98-107) mEq/L Carbon Dioxide 25 (21-32) mEq/L Anion Gap 11.3 (5-15) BUN 15 (7-18) mg/dL Creatinine 1.0 (0.55-1.02) mg/dL Est Cr Clr Drug Dosing 73.51 mL/min Estimated GFR (MDRD) > 60 (>60) mL/min BUN/Creatinine Ratio 15.0 (14-18) Glucose 59 L (74-106) mg/dL POC Glucose 40 L (70-105) mg/dL Calcium 8.2 L (8.5-10.1) mg/dL Phosphorus (2.6-4.7) mg/dL Magnesium 1.6 L (1.8-2.4) mg/dl 08/24/19 08/24/19 08/24/19 Range/Units 09:06 10:14 11:04 WBC (3.98-10.04) K/mm3 RBC (3.98-5.22) M/mm3 Hgb (11.2-15.7) gm/dl Hct (34.1-44.9) % MCV (79.4-94.8) fl MCH (25.6-32.2) pg MCHC (32.2-35.5) g/dl RDW Std Deviation (36.4-46.3) fL Plt Count (182-369) K/mm3 MPV (9.4-12.3) fl Neut % (Auto) (34.0-71.1) % Lymph % (Auto) (19.3-51.7) % Parker % (Auto) (4.7-12.5) % Eos % (Auto) (0.7-5.8) Baso % (Auto) (0.1-1.2) % Neut # (Auto) (1.56-6.13) K/mm3 Lymph # (Auto) (1.18-3.74) K/mm3 Parker # (Auto) (0.24-0.36) K/mm3 Eos # (Auto) (0.04-0.36) K/mm3 Baso # (Auto) (0.01-0.08) K/mm3 Sodium (136-145) mEq/L Potassium (3.5-5.1) mEq/L Chloride (98-107) mEq/L Carbon Dioxide (21-32) mEq/L Anion Gap (5-15) BUN (7-18) mg/dL Creatinine (0.55-1.02) mg/dL Est Cr Clr Drug Dosing mL/min Estimated GFR (MDRD) (>60) mL/min BUN/Creatinine Ratio (14-18) Glucose (74-106) mg/dL POC Glucose 101 82 69 L (70-105) mg/dL Calcium (8.5-10.1) mg/dL Phosphorus (2.6-4.7) mg/dL Magnesium (1.8-2.4) mg/dl 08/24/19 08/24/19 08/24/19 Range/Units 12:28 13:16 14:12 WBC (3.98-10.04) K/mm3 RBC (3.98-5.22) M/mm3 Hgb (11.2-15.7) gm/dl Hct (34.1-44.9) % MCV (79.4-94.8) fl MCH (25.6-32.2) pg MCHC (32.2-35.5) g/dl RDW Std Deviation (36.4-46.3) fL Plt Count (182-369) K/mm3 MPV (9.4-12.3) fl Neut % (Auto) (34.0-71.1) % Lymph % (Auto) (19.3-51.7) % Parker % (Auto) (4.7-12.5) % Eos % (Auto) (0.7-5.8) Baso % (Auto) (0.1-1.2) % Neut # (Auto) (1.56-6.13) K/mm3 Lymph # (Auto) (1.18-3.74) K/mm3 Parker # (Auto) (0.24-0.36) K/mm3 Eos # (Auto) (0.04-0.36) K/mm3 Baso # (Auto) (0.01-0.08) K/mm3 Sodium (136-145) mEq/L Potassium (3.5-5.1) mEq/L Chloride (98-107) mEq/L Carbon Dioxide (21-32) mEq/L Anion Gap (5-15) BUN (7-18) mg/dL Creatinine (0.55-1.02) mg/dL Est Cr Clr Drug Dosing mL/min Estimated GFR (MDRD) (>60) mL/min BUN/Creatinine Ratio (14-18) Glucose (74-106) mg/dL POC Glucose 68 L 56 L 57 L (70-105) mg/dL Calcium (8.5-10.1) mg/dL Phosphorus (2.6-4.7) mg/dL Magnesium (1.8-2.4) mg/dl Med Orders - Current: Current Medications Acetaminophen (Tylenol) 650 mg PO Q4H PRN PRN Reason: Pain (Mild 1-3)/fever Albuterol/Ipratropium (Duoneb 3.0-0.5 Mg/3 Ml) 3 ml NEB Q4H PRN PRN Reason: Shortness Of Breath/wheezing Dextrose/Water (Dextrose 50% In Water) 50 ml IVPUSH ASDIRECTED PRN PRN Reason: Hypoglycemia Last Admin: 08/24/19 08:25 Dose: 50 ml Hydralazine HCl (Apresoline) 20 mg IVPUSH Q4H PRN PRN Reason: Hypertension Hydromorphone HCl (Dilaudid) 1 mg IVPUSH Q4H PRN PRN Reason: Pain Last Admin: 08/24/19 13:11 Dose: 1 mg Insulin Human Regular 100 unit (/ Sodium Chloride) 100 mls @ 6 mls/hr IV TITRATE TONIO; Protocol Last Titration: 08/24/19 14:20 Dose: 0 unit/hr, 0 mls/hr Dextrose/Sodium Chloride (Dextrose 5%-Normal Saline) 1,000 mls @ 50 mls/hr IV ASDIRECTED TONIO Ibuprofen (Motrin) 600 mg PO Q6H PRN PRN Reason: Pain Ketorolac Tromethamine (Toradol) 15 mg IVPUSH Q6H PRN PRN Reason: Pain (moderate 4-6) Stop: 08/27/19 04:01 Last Admin: 08/24/19 08:26 Dose: 15 mg Metoprolol Tartrate (Lopressor) 5 mg IVPUSH Q4H PRN PRN Reason: Tachycardia Miscellaneous Information (Remove Patch) 1 ea TRDERM DAILY [facility] Last Admin: 08/24/19 08:38 Dose: Not Given Miscellaneous Information (Remove Patch) 0 ea TRDERM ONETIME ONE Stop: 08/26/19 13:01 Nicotine (Habitrol) 21 mg TRDERM DAILY [facility] Last Admin: 08/24/19 08:38 Dose: Not Given Ondansetron HCl (Zofran) 4 mg IV Q6H PRN PRN Reason: Nausea/Vomiting Last Admin: 08/24/19 12:43 Dose: 4 mg Pantoprazole Sodium (Protonix Iv) 40 mg IVPUSH Q12H [facility] Last Admin: 08/24/19 08:30 Dose: 40 mg Sodium Chloride (Saline Flush) 10 ml FLUSH ASDIRECTED PRN PRN Reason: Keep Vein Open Last Admin: 08/22/19 20:34 Dose: 10 ml Temazepam (Restoril) 15 mg PO BEDTIME PRN PRN Reason: Sleep Last Admin: 08/23/19 20:01 Dose: 15 mg Discontinued Medications Hydrocodone Bitart/Acetaminophen ([place] 325-5 Mg) 1 tab PO Q4H PRN PRN Reason: Pain (moderate 4-6) Hydromorphone HCl (Dilaudid) 0.25 mg IVPUSH Q2H PRN PRN Reason: Pain (severe 7-10) Sodium Chloride (Normal Saline) 1,000 mls @ 999 mls/hr IV ONETIME ONE Stop: 08/22/19 19:03 Last Admin: 08/22/19 20:34 Dose: Not Given Sodium Chloride (Normal Saline) 1,000 mls @ 999 mls/hr IV ONETIME ONE Stop: 08/22/19 20:37 Last Admin: 08/22/19 20:34 Dose: 999 mls/hr Lactated Ringer's (Ringers, Lactated) 1,000 mls @ 999 mls/hr IV .BOLUS ONE Stop: 08/22/19 21:23 Last Admin: 08/22/19 21:48 Dose: 999 mls/hr Lactated Ringer's (Ringers, Lactated) 1,000 mls @ 999 mls/hr IV .BOLUS ONE Stop: 08/22/19 23:02 Last Admin: 08/23/19 00:09 Dose: 999 mls/hr Insulin Human Regular 100 unit (/ Sodium Chloride) 100 mls @ 381.01 mls/hr IV TITRATE TONIO; Protocol Lactated Ringer's (Ringers, Lactated) 1,000 mls @ 999 mls/hr IV ONETIME ONE Stop: 08/23/19 00:33 Last Admin: 08/23/19 00:32 Dose: Not Given Sodium Bicarbonate 150 meq/ (Dextrose/Water) 1,150 mls @ 100 mls/hr IV ONETIME ONE Stop: 08/23/19 11:04 Last Admin: 08/23/19 00:57 Dose: 100 mls/hr Dextrose/Water (Dextrose 5% In Water) 1,000 mls @ 150 mls/hr IV ASDIRECTED TONIO Last Admin: 08/23/19 07:13 Dose: 150 mls/hr Dextrose/Sodium Chloride (Dextrose 5%-Normal Saline) 1,000 mls @ 100 mls/hr IV ASDIRECTED TONIO Last Infusion: 08/24/19 14:20 Dose: 50 mls/hr Magnesium Sulfate 4 gm/ Premix 50 mls @ 12.5 mls/hr IV ONETIME ONE Stop: 08/24/19 11:29 Last Admin: 08/24/19 08:34 Dose: 12.5 mls/hr Insulin Glargine (Lantus) 20 unit SUBCUT NOW STA Stop: 08/23/19 23:09 Last Admin: 08/23/19 23:15 Dose: 20 unit Insulin Human Regular (Humulin R) 5 unit SUBCUT BIDAC TONIO Last Admin: 08/22/19 19:45 Dose: 5 units Insulin Human Regular (Humulin R) Confirm Administered Dose 300 unit .ROUTE .STK -MED ONE Stop: 08/22/19 19:43 Last Admin: 08/22/19 20:23 Dose: Not Given Ketorolac Tromethamine (Toradol) 15 mg IVPUSH ONETIME ONE Stop: 08/22/19 21:47 Last Admin: 08/22/19 21:54 Dose: 15 mg Ketorolac Tromethamine (Toradol) 30 mg IV Q6H PRN PRN Reason: Pain (moderate 4-6) Stop: 08/27/19 04:01 Metoclopramide HCl (Reglan) 7.5 mg IVPUSH ONETIME ONE Stop: 08/22/19 18:04 Last Admin: 08/22/19 20:25 Dose: 7.5 mg Metoclopramide HCl (Reglan) 10 mg IVPUSH Q6H PRN PRN Reason: Nausea/Vomiting Last Admin: 08/24/19 01:57 Dose: 10 mg Ondansetron HCl (Zofran) 4 mg IVPUSH ONETIME ONE Stop: 08/22/19 21:51 Last Admin: 08/22/19 21:54 Dose: 4 mg Ondansetron HCl (Zofran) Confirm Administered Dose 4 mg .ROUTE .STK-MED ONE Stop: 08/22/19 21:54 Last Admin: 08/22/19 22:02 Dose: Not Given Pantoprazole Sodium (Protonix Iv) 20 mg IVPUSH ONETIME ONE Stop: 08/22/19 22:01 Last Admin: 08/22/19 23:23 Dose: 20 mg Pantoprazole Sodium (Protonix) 40 mg PO BID TONIO Last Admin: 08/23/19 20:01 Dose: 40 mg Potassium Chloride (Klor-Con 10) 60 meq PO ONETIME ONE Stop: 08/22/19 23:34 Last Admin: 08/22/19 23:50 Dose: 60 meq Potassium Chloride (Klor-Con 10) 60 meq PO ONETIME ONE Stop: 08/23/19 08:01 Last Admin: 08/23/19 09:03 Dose: 60 meq Potassium Chloride (Klor-Con M20) 60 meq PO ONETIME ONE Stop: 08/24/19 07:31 Last Admin: 08/24/19 08:32 Dose: 60 meq Scopolamine (Transderm-Scop) 1.5 mg TRDERM ONETIME ONE Stop: 08/23/19 13:01 Last Admin: 08/23/19 13:25 Dose: 1.5 mg Sodium Bicarbonate (Sodium Bicarbonate 8.4%) Confirm Administered Dose 100 meq .ROUTE .STK-MED ONE Stop: 08/23/19 00:40 Last Admin: 08/23/19 01:13 Dose: Not Given Sodium Chloride (Normal Saline) 10 ml IV ASDIRECTED PRN PRN Reason: Other Last Admin: 08/22/19 20:34 Dose: 10 ml - Exam General: Alert, Oriented, Cooperative, Mild Distress HEENT: Pupils Equal, Pupils Reactive, EOMI, Mucous Membr. Moist/Tetherow Neck: Supple, Trachea Midline, No JVD. No: Lymphadenopathy Lungs: Clear to Auscultation, Normal Respiratory Effort. No: Crackles, Rales, Rhonchi, Wheezing Cardiovascular: Regular Rhythm, No Murmurs, Tachycardia GI/Abdominal Exam: Soft, Non-Tender, No Organomegaly, No Distention, Abnormal Bowel Sounds (Hypoactive) (Female) Exam: Deferred Back Exam: Normal Inspection, Full Range of Motion Extremities: Normal Inspection, Normal Range of Motion, Non-Tender, No Pedal Edema Skin: Warm, Dry, Intact Neurological: No New Focal Deficit, Normal Speech, Normal Tone, Cranial Nerves Intact Psy/Mental Status: Normal Affect, Normal Mood - Problem List Review Problem List Initiated/Reviewed/Updated: Yes - Plan Plan:: Assessment: Acute: Permissive Hyperglycemia - BS in the 200s-300s-> down now - She currently on glucose drip - Monitor BS with ISS coverage Inadequate IV Access - Requested PICC line while patient while still in ED but only got peripheral access line - Now the vein blew on the only IV access --> IV placed by anesthesia this a.m. 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 - Taking a shower helps with her symptoms - UDS is positive for THC; she is a regular user according to her along with Meth - Reglan and Scopolamine patch for symptomatic control - She may re-GAP if she does not eat-> did re-GAP overnight - Possible diabetic gastroparesis, will obtain gastric emptying study Coffee-Ground Emesis - Unsure if she had gotten charcoal - Gastric-occult test - PPI BID Marijuana Abuse - Abuse of recreational THC - May explain why she is throwing but symptoms helps if she takes a hot shower Resolved: S/P Acute Kidney Injury - BUN of 32 and Cr of 1.8--> 1.4--> BUN 15, Cr 1.0 - 2/2 Volume Depletion - Received initial volume resuscitation in ED but not adequate S/p DKA - Presented to ED complaints of nausea and vomiting for the past 5 days - She was seen in ED 4 days ago but was sent home - Last A1C 9 on 07/12/2019 - Took her usual SA and LA insulin - Presents with 347 glucose level - Insulin drip S/p Erythrocytosis - Hgb of 17.1-->13.4 - Likely 2/2 hemo-concentration from DKA - She is dehydrated from DKA and GI loss S/p Increased AG with Metabolic Acidosis - 2/2 DKA - AG of 36.9 and CO2 of <5--> now 23 - IV hydration Chronic: HTN, Dysphagia, Chronic Diarrhea, GERD, IBS, Nausea, OA/DJD, Back Pain , Migraines, Seizure Disorder, DM1,Hx/o PE/DVT, Hx/o IDVU, Hx/o MRSA, Eczema, Psoriasis, Anxiety, Depression as well as Hx/o Meth and Marijuana Abuse Plan: She is symptomatic this morning and vomited with dark colored substance Obtain gastric emptying study Continue Insulin drip UDS - Positive for Benzo and THC UA- Negative for UTI IV Aggressive Hydration Accu-check now QID DVT/GI Prophylaxis Dietary and Diabetic Education ADA diet if able to tolerate crackers and soda SW/CM for d/c planning Code status: 1 Additional orders as above <Cassia Rolle T - Last Filed: 08/24/19 21:01> - General Info Subjective Update: She re-GAP last night because she was not eating due to nausea and vomiting. However DKA resolved early this morning. her K and Mg level were low. - Patient Data Vitals - Most Recent: Last Vital Signs Temp 37.1 C 08/24/19 20:00 Pulse 88 08/24/19 20:00 Resp 16 08/24/19 20:00 BP 100/69 08/24/19 20:00 Pulse Ox 100 08/24/19 20:00 I&O - Last 24 Hours: Intake & Output 08/24/19 08/24/19 08/24/19 06:59 14:59 22:59 Intake Total 1011 1541 840 Output Total 1200 1000 400 Balance -189 541 440 Lab Results Last 24 Hours: Laboratory Results - last 24 hr 08/23/19 08/23/19 08/24/19 Range/Units 22:50 22:50 00:15 WBC (3.98-10.04) K/mm3 RBC (3.98-5.22) M/mm3 Hgb (11.2-15.7) gm/dl Hct (34.1-44.9) % MCV (79.4-94.8) fl MCH (25.6-32.2) pg MCHC (32.2-35.5) g/dl RDW Std Deviation (36.4-46.3) fL Plt Count (182-369) K/mm3 MPV (9.4-12.3) fl Neut % (Auto) (34.0-71.1) % Lymph % (Auto) (19.3-51.7) % Parker % (Auto) (4.7-12.5) % Eos % (Auto) (0.7-5.8) Baso % (Auto) (0.1-1.2) % Neut # (Auto) (1.56-6.13) K/mm3 Lymph # (Auto) (1.18-3.74) K/mm3 Parker # (Auto) (0.24-0.36) K/mm3 Eos # (Auto) (0.04-0.36) K/mm3 Baso # (Auto) (0.01-0.08) K/mm3 Sodium 138 (136-145) mEq/L Potassium 3.4 L D (3.5-5.1) mEq/L Chloride 105 (98-107) mEq/L Carbon Dioxide 20 L (21-32) mEq/L Anion Gap 16.4 H (5-15) BUN 20 H (7-18) mg/dL Creatinine 1.4 H (0.55-1.02) mg/dL Est Cr Clr Drug Dosing 52.50 mL/min Estimated GFR (MDRD) 43 (>60) mL/min BUN/Creatinine Ratio 14.3 (14-18) Glucose 363 H 298 H (74-106) mg/dL POC Glucose (70-105) mg/dL Calcium 8.6 (8.5-10.1) mg/dL Phosphorus (2.6-4.7) mg/dL Magnesium 2.0 (1.8-2.4) mg/dl 08/24/19 08/24/19 08/24/19 Range/Units 00:15 00:50 01:48 WBC (3.98-10.04) K/mm3 RBC (3.98-5.22) M/mm3 Hgb (11.2-15.7) gm/dl Hct (34.1-44.9) % MCV (79.4-94.8) fl MCH (25.6-32.2) pg MCHC (32.2-35.5) g/dl RDW Std Deviation (36.4-46.3) fL Plt Count (182-369) K/mm3 MPV (9.4-12.3) fl Neut % (Auto) (34.0-71.1) % Lymph % (Auto) (19.3-51.7) % Parker % (Auto) (4.7-12.5) % Eos % (Auto) (0.7-5.8) Baso % (Auto) (0.1-1.2) % Neut # (Auto) (1.56-6.13) K/mm3 Lymph # (Auto) (1.18-3.74) K/mm3 Parker # (Auto) (0.24-0.36) K/mm3 Eos # (Auto) (0.04-0.36) K/mm3 Baso # (Auto) (0.01-0.08) K/mm3 Sodium (136-145) mEq/L Potassium (3.5-5.1) mEq/L Chloride (98-107) mEq/L Carbon Dioxide (21-32) mEq/L Anion Gap (5-15) BUN (7-18) mg/dL Creatinine (0.55-1.02) mg/dL Est Cr Clr Drug Dosing mL/min Estimated GFR (MDRD) (>60) mL/min BUN/Creatinine Ratio (14-18) Glucose (74-106) mg/dL POC Glucose 233 H 234 H 194 H (70-105) mg/dL Calcium (8.5-10.1) mg/dL Phosphorus (2.6-4.7) mg/dL Magnesium (1.8-2.4) mg/dl 08/24/19 08/24/19 08/24/19 Range/Units 02:54 04:15 04:16 WBC (3.98-10.04) K/mm3 RBC (3.98-5.22) M/mm3 Hgb (11.2-15.7) gm/dl Hct (34.1-44.9) % MCV (79.4-94.8) fl MCH (25.6-32.2) pg MCHC (32.2-35.5) g/dl RDW Std Deviation (36.4-46.3) fL Plt Count (182-369) K/mm3 MPV (9.4-12.3) fl Neut % (Auto) (34.0-71.1) % Lymph % (Auto) (19.3-51.7) % Parker % (Auto) (4.7-12.5) % Eos % (Auto) (0.7-5.8) Baso % (Auto) (0.1-1.2) % Neut # (Auto) (1.56-6.13) K/mm3 Lymph # (Auto) (1.18-3.74) K/mm3 Parker # (Auto) (0.24-0.36) K/mm3 Eos # (Auto) (0.04-0.36) K/mm3 Baso # (Auto) (0.01-0.08) K/mm3 Sodium (136-145) mEq/L Potassium (3.5-5.1) mEq/L Chloride (98-107) mEq/L Carbon Dioxide (21-32) mEq/L Anion Gap (5-15) BUN (7-18) mg/dL Creatinine (0.55-1.02) mg/dL Est Cr Clr Drug Dosing mL/min Estimated GFR (MDRD) (>60) mL/min BUN/Creatinine Ratio (14-18) Glucose (74-106) mg/dL POC Glucose 177 H 113 H (70-105) mg/dL Calcium (8.5-10.1) mg/dL Phosphorus (2.6-4.7) mg/dL Magnesium 1.7 L (1.8-2.4) mg/dl 08/24/19 08/24/19 08/24/19 Range/Units 04:16 04:16 04:16 WBC 8.57 (3.98-10.04) K/mm3 RBC 4.25 (3.98-5.22) M/mm3 Hgb 12.6 (11.2-15.7) gm/dl Hct 36.4 (34.1-44.9) % MCV 85.6 (79.4-94.8) fl MCH 29.6 (25.6-32.2) pg MCHC 34.6 (32.2-35.5) g/dl RDW Std Deviation 38.2 (36.4-46.3) fL Plt Count 148 L (182-369) K/mm3 MPV 10.1 (9.4-12.3) fl Neut % (Auto) 63.8 (34.0-71.1) % Lymph % (Auto) 30.5 (19.3-51.7) % Parker % (Auto) 4.9 (4.7-12.5) % Eos % (Auto) 0.5 L (0.7-5.8) Baso % (Auto) 0.1 (0.1-1.2) % Neut # (Auto) 5.47 (1.56-6.13) K/mm3 Lymph # (Auto) 2.61 (1.18-3.74) K/mm3 Parker # (Auto) 0.42 H (0.24-0.36) K/mm3 Eos # (Auto) 0.04 (0.04-0.36) K/mm3 Baso # (Auto) 0.01 (0.01-0.08) K/mm3 Sodium 142 (136-145) mEq/L Potassium 3.2 L (3.5-5.1) mEq/L Chloride 109 H (98-107) mEq/L Carbon Dioxide 25 (21-32) mEq/L Anion Gap 11.2 (5-15) BUN 17 (7-18) mg/dL Creatinine 1.3 H (0.55-1.02) mg/dL Est Cr Clr Drug Dosing 56.54 mL/min Estimated GFR (MDRD) 47 (>60) mL/min BUN/Creatinine Ratio 13.1 L (14-18) Glucose 132 H (74-106) mg/dL POC Glucose (70-105) mg/dL Calcium 8.4 L (8.5-10.1) mg/dL Phosphorus 0.9 L (2.6-4.7) mg/dL Magnesium (1.8-2.4) mg/dl 09/24/19 09/24/19 09/24/19 Range/Units 05:04 05:56 06:53 WBC (3.98-10.04) K/mm3 RBC (3.98-5.22) M/mm3 Hgb (11.2-15.7) gm/dl Hct (34.1-44.9) % MCV (79.4-94.8) fl MCH (25.6-32.2) pg MCHC (32.2-35.5) g/dl RDW Std Deviation (36.4-46.3) fL Plt Count (182-369) K/mm3 MPV (9.4-12.3) fl Neut % (Auto) (34.0-71.1) % Lymph % (Auto) (19.3-51.7) % Parker % (Auto) (4.7-12.5) % Eos % (Auto) (0.7-5.8) Baso % (Auto) (0.1-1.2) % Neut # (Auto) (1.56-6.13) K/mm3 Lymph # (Auto) (1.18-3.74) K/mm3 Parker # (Auto) (0.24-0.36) K/mm3 Eos # (Auto) (0.04-0.36) K/mm3 Baso # (Auto) (0.01-0.08) K/mm3 Sodium (136-145) mEq/L Potassium (3.5-5.1) mEq/L Chloride (98-107) mEq/L Carbon Dioxide (21-32) mEq/L Anion Gap (5-15) BUN (7-18) mg/dL Creatinine (0.55-1.02) mg/dL Est Cr Clr Drug Dosing mL/min Estimated GFR (MDRD) (>60) mL/min BUN/Creatinine Ratio (14-18) Glucose (74-106) mg/dL POC Glucose 126 H 102 98 (70-105) mg/dL Calcium (8.5-10.1) mg/dL Phosphorus (2.6-4.7) mg/dL Magnesium (1.8-2.4) mg/dl 08/24/19 08/24/19 08/24/19 Range/Units 07:57 07:57 08:10 WBC (3.98-10.04) K/mm3 RBC (3.98-5.22) M/mm3 Hgb (11.2-15.7) gm/dl Hct (34.1-44.9) % MCV (79.4-94.8) fl MCH (25.6-32.2) pg MCHC (32.2-35.5) g/dl RDW Std Deviation (36.4-46.3) fL Plt Count (182-369) K/mm3 MPV (9.4-12.3) fl Neut % (Auto) (34.0-71.1) % Lymph % (Auto) (19.3-51.7) % Parker % (Auto) (4.7-12.5) % Eos % (Auto) (0.7-5.8) Baso % (Auto) (0.1-1.2) % Neut # (Auto) (1.56-6.13) K/mm3 Lymph # (Auto) (1.18-3.74) K/mm3 Parker # (Auto) (0.24-0.36) K/mm3 Eos # (Auto) (0.04-0.36) K/mm3 Baso # (Auto) (0.01-0.08) K/mm3 Sodium 142 (136-145) mEq/L Potassium 3.3 L (3.5-5.1) mEq/L Chloride 109 H (98-107) mEq/L Carbon Dioxide 25 (21-32) mEq/L Anion Gap 11.3 (5-15) BUN 15 (7-18) mg/dL Creatinine 1.0 (0.55-1.02) mg/dL Est Cr Clr Drug Dosing 73.51 mL/min Estimated GFR (MDRD) > 60 (>60) mL/min BUN/Creatinine Ratio 15.0 (14-18) Glucose 59 L (74-106) mg/dL POC Glucose 40 L (70-105) mg/dL Calcium 8.2 L (8.5-10.1) mg/dL Phosphorus (2.6-4.7) mg/dL Magnesium 1.6 L (1.8-2.4) mg/dl 08/24/19 08/24/19 08/24/19 Range/Units 09:06 10:14 11:04 WBC (3.98-10.04) K/mm3 RBC (3.98-5.22) M/mm3 Hgb (11.2-15.7) gm/dl Hct (34.1-44.9) % MCV (79.4-94.8) fl MCH (25.6-32.2) pg MCHC (32.2-35.5) g/dl RDW Std Deviation (36.4-46.3) fL Plt Count (182-369) K/mm3 MPV (9.4-12.3) fl Neut % (Auto) (34.0-71.1) % Lymph % (Auto) (19.3-51.7) % Parker % (Auto) (4.7-12.5) % Eos % (Auto) (0.7-5.8) Baso % (Auto) (0.1-1.2) % Neut # (Auto) (1.56-6.13) K/mm3 Lymph # (Auto) (1.18-3.74) K/mm3 Parker # (Auto) (0.24-0.36) K/mm3 Eos # (Auto) (0.04-0.36) K/mm3 Baso # (Auto) (0.01-0.08) K/mm3 Sodium (136-145) mEq/L Potassium (3.5-5.1) mEq/L Chloride (98-107) mEq/L Carbon Dioxide (21-32) mEq/L Anion Gap (5-15) BUN (7-18) mg/dL Creatinine (0.55-1.02) mg/dL Est Cr Clr Drug Dosing mL/min Estimated GFR (MDRD) (>60) mL/min BUN/Creatinine Ratio (14-18) Glucose (74-106) mg/dL POC Glucose 101 82 69 L (70-105) mg/dL Calcium (8.5-10.1) mg/dL Phosphorus (2.6-4.7) mg/dL Magnesium (1.8-2.4) mg/dl 08/24/19 08/24/19 08/24/19 Range/Units 12:28 13:16 14:12 WBC (3.98-10.04) K/mm3 RBC (3.98-5.22) M/mm3 Hgb (11.2-15.7) gm/dl Hct (34.1-44.9) % MCV (79.4-94.8) fl MCH (25.6-32.2) pg MCHC (32.2-35.5) g/dl RDW Std Deviation (36.4-46.3) fL Plt Count (182-369) K/mm3 MPV (9.4-12.3) fl Neut % (Auto) (34.0-71.1) % Lymph % (Auto) (19.3-51.7) % Parker % (Auto) (4.7-12.5) % Eos % (Auto) (0.7-5.8) Baso % (Auto) (0.1-1.2) % Neut # (Auto) (1.56-6.13) K/mm3 Lymph # (Auto) (1.18-3.74) K/mm3 Parker # (Auto) (0.24-0.36) K/mm3 Eos # (Auto) (0.04-0.36) K/mm3 Baso # (Auto) (0.01-0.08) K/mm3 Sodium (136-145) mEq/L Potassium (3.5-5.1) mEq/L Chloride (98-107) mEq/L Carbon Dioxide (21-32) mEq/L Anion Gap (5-15) BUN (7-18) mg/dL Creatinine (0.55-1.02) mg/dL Est Cr Clr Drug Dosing mL/min Estimated GFR (MDRD) (>60) mL/min BUN/Creatinine Ratio (14-18) Glucose (74-106) mg/dL POC Glucose 68 L 56 L 57 L (70-105) mg/dL Calcium (8.5-10.1) mg/dL Phosphorus (2.6-4.7) mg/dL Magnesium (1.8-2.4) mg/dl 08/24/19 Range/Units 17:44 WBC (3.98-10.04) K/mm3 RBC (3.98-5.22) M/mm3 Hgb (11.2-15.7) gm/dl Hct (34.1-44.9) % MCV (79.4-94.8) fl MCH (25.6-32.2) pg MCHC (32.2-35.5) g/dl RDW Std Deviation (36.4-46.3) fL Plt Count (182-369) K/mm3 MPV (9.4-12.3) fl Neut % (Auto) (34.0-71.1) % Lymph % (Auto) (19.3-51.7) % Parker % (Auto) (4.7-12.5) % Eos % (Auto) (0.7-5.8) Baso % (Auto) (0.1-1.2) % Neut # (Auto) (1.56-6.13) K/mm3 Lymph # (Auto) (1.18-3.74) K/mm3 Parker # (Auto) (0.24-0.36) K/mm3 Eos # (Auto) (0.04-0.36) K/mm3 Baso # (Auto) (0.01-0.08) K/mm3 Sodium (136-145) mEq/L Potassium (3.5-5.1) mEq/L Chloride (98-107) mEq/L Carbon Dioxide (21-32) mEq/L Anion Gap (5-15) BUN (7-18) mg/dL Creatinine (0.55-1.02) mg/dL Est Cr Clr Drug Dosing mL/min Estimated GFR (MDRD) (>60) mL/min BUN/Creatinine Ratio (14-18) Glucose (74-106) mg/dL POC Glucose 147 H (70-105) mg/dL Calcium (8.5-10.1) mg/dL Phosphorus (2.6-4.7) mg/dL Magnesium (1.8-2.4) mg/dl Med Orders - Current: Current Medications Acetaminophen (Tylenol) 650 mg PO Q4H PRN PRN Reason: Pain (Mild 1-3)/fever Albuterol/Ipratropium (Duoneb 3.0-0.5 Mg/3 Ml) 3 ml NEB Q4H PRN PRN Reason: Shortness Of Breath/wheezing Dextrose/Water (Dextrose 50% In Water) 50 ml IVPUSH ASDIRECTED PRN PRN Reason: Hypoglycemia Last Admin: 08/24/19 08:25 Dose: 50 ml Hydralazine HCl (Apresoline) 20 mg IVPUSH Q4H PRN PRN Reason: Hypertension Hydromorphone HCl (Dilaudid) 1 mg IVPUSH Q4H PRN PRN Reason: Pain Last Admin: 08/24/19 17:49 Dose: 1 mg Insulin Human Regular 100 unit (/ Sodium Chloride) 100 mls @ 6 mls/hr IV TITRATE [facility]; Protocol Last Titration: 08/24/19 14:20 Dose: 0 unit/hr, 0 mls/hr Dextrose/Sodium Chloride (Dextrose 5%-Normal Saline) 1,000 mls @ 50 mls/hr IV ASDIRECTED [facility] Ibuprofen (Motrin) 600 mg PO Q6H PRN PRN Reason: Pain Insulin Human Lispro (Humalog) 0 unit SUBCUT QIDACANDBED [facility]; Protocol Last Admin: 08/24/19 17:55 Dose: Not Given Ketorolac Tromethamine (Toradol) 15 mg IVPUSH Q6H PRN PRN Reason: Pain (moderate 4-6) Stop: 08/27/19 04:01 Last Admin: 08/24/19 16:46 Dose: 15 mg Metoprolol Tartrate (Lopressor) 5 mg IVPUSH Q4H PRN PRN Reason: Tachycardia Miscellaneous Information (Remove Patch) 1 ea TRDERM DAILY [facility] Last Admin: 08/24/19 08:38 Dose: Not Given Miscellaneous Information (Remove Patch) 0 ea TRDERM ONETIME ONE Stop: 08/26/19 13:01 Nicotine (Habitrol) 21 mg TRDERM DAILY [facility] Last Admin: 08/24/19 08:38 Dose: Not Given Ondansetron HCl (Zofran) 4 mg IV Q6H PRN PRN Reason: Nausea/Vomiting Last Admin: 08/24/19 12:43 Dose: 4 mg Pantoprazole Sodium (Protonix Iv) 40 mg IVPUSH Q12H [facility] Last Admin: 08/24/19 20:05 Dose: 40 mg Sodium Chloride (Saline Flush) 10 ml FLUSH ASDIRECTED PRN PRN Reason: Keep Vein Open Last Admin: 08/22/19 20:34 Dose: 10 ml Temazepam (Restoril) 15 mg PO BEDTIME PRN PRN Reason: Sleep Last Admin: 09/23/19 20:01 Dose: 15 mg Discontinued Medications Hydrocodone Bitart/Acetaminophen ([place] 325-5 Mg) 1 tab PO Q4H PRN PRN Reason: Pain (moderate 4-6) Hydromorphone HCl (Dilaudid) 0.25 mg IVPUSH Q2H PRN PRN Reason: Pain (severe 7-10) Sodium Chloride (Normal Saline) 1,000 mls @ 999 mls/hr IV ONETIME ONE Stop: 08/22/19 19:03 Last Admin: 08/22/19 20:34 Dose: Not Given Sodium Chloride (Normal Saline) 1,000 mls @ 999 mls/hr IV ONETIME ONE Stop: 08/22/19 20:37 Last Admin: 08/22/19 20:34 Dose: 999 mls/hr Lactated Ringer's (Ringers, Lactated) 1,000 mls @ 999 mls/hr IV .BOLUS ONE Stop: 08/22/19 21:23 Last Admin: 08/22/19 21:48 Dose: 999 mls/hr Lactated Ringer's (Ringers, Lactated) 1,000 mls @ 999 mls/hr IV .BOLUS ONE Stop: 08/22/19 23:02 Last Admin: 08/23/19 00:09 Dose: 999 mls/hr Insulin Human Regular 100 unit (/ Sodium Chloride) 100 mls @ 381.01 mls/hr IV TITRATE TONIO; Protocol Lactated Ringer's (Ringers, Lactated) 1,000 mls @ 999 mls/hr IV ONETIME ONE Stop: 08/23/19 00:33 Last Admin: 08/23/19 00:32 Dose: Not Given Sodium Bicarbonate 150 meq/ (Dextrose/Water) 1,150 mls @ 100 mls/hr IV ONETIME ONE Stop: 08/23/19 11:04 Last Admin: 08/23/19 00:57 Dose: 100 mls/hr Dextrose/Water (Dextrose 5% In Water) 1,000 mls @ 150 mls/hr IV ASDIRECTED TONIO Last Admin: 08/23/19 07:13 Dose: 150 mls/hr Dextrose/Sodium Chloride (Dextrose 5%-Normal Saline) 1,000 mls @ 100 mls/hr IV ASDIRECTED TONIO Last Infusion: 08/24/19 14:20 Dose: 50 mls/hr Magnesium Sulfate 4 gm/ Premix 50 mls @ 12.5 mls/hr IV ONETIME ONE Stop: 08/24/19 11:29 Last Admin: 08/24/19 08:34 Dose: 12.5 mls/hr Insulin Glargine (Lantus) 20 unit SUBCUT NOW STA Stop: 08/23/19 23:09 Last Admin: 08/23/19 23:15 Dose: 20 unit Insulin Human Regular (Humulin R) 5 unit SUBCUT BIDAC TONIO Last Admin: 08/22/19 19:45 Dose: 5 units Insulin Human Regular (Humulin R) Confirm Administered Dose 300 unit .ROUTE .STK -MED ONE Stop: 08/22/19 19:43 Last Admin: 08/22/19 20:23 Dose: Not Given Ketorolac Tromethamine (Toradol) 15 mg IVPUSH ONETIME ONE Stop: 08/22/19 21:47 Last Admin: 08/22/19 21:54 Dose: 15 mg Ketorolac Tromethamine (Toradol) 30 mg IV Q6H PRN PRN Reason: Pain (moderate 4-6) Stop: 08/27/19 04:01 Metoclopramide HCl (Reglan) 7.5 mg IVPUSH ONETIME ONE Stop: 08/22/19 18:04 Last Admin: 08/22/19 20:25 Dose: 7.5 mg Metoclopramide HCl (Reglan) 10 mg IVPUSH Q6H PRN PRN Reason: Nausea/Vomiting Last Admin: 08/24/19 01:57 Dose: 10 mg Ondansetron HCl (Zofran) 4 mg IVPUSH ONETIME ONE Stop: 08/22/19 21:51 Last Admin: 08/22/19 21:54 Dose: 4 mg Ondansetron HCl (Zofran) Confirm Administered Dose 4 mg .ROUTE .STK-MED ONE Stop: 08/22/19 21:54 Last Admin: 08/22/19 22:02 Dose: Not Given Pantoprazole Sodium (Protonix Iv) 20 mg IVPUSH ONETIME ONE Stop: 08/22/19 22:01 Last Admin: 08/22/19 23:23 Dose: 20 mg Pantoprazole Sodium (Protonix) 40 mg PO BID TONIO Last Admin: 09/23/19 20:01 Dose: 40 mg Potassium Chloride (Klor-Con 10) 60 meq PO ONETIME ONE Stop: 08/22/19 23:34 Last Admin: 08/22/19 23:50 Dose: 60 meq Potassium Chloride (Klor-Con 10) 60 meq PO ONETIME ONE Stop: 08/23/19 08:01 Last Admin: 08/23/19 09:03 Dose: 60 meq Potassium Chloride (Klor-Con M20) 60 meq PO ONETIME ONE Stop: 08/24/19 07:31 Last Admin: 08/24/19 08:32 Dose: 60 meq Scopolamine (Transderm-Scop) 1.5 mg TRDERM ONETIME ONE Stop: 08/23/19 13:01 Last Admin: 08/23/19 13:25 Dose: 1.5 mg Sodium Bicarbonate (Sodium Bicarbonate 8.4%) Confirm Administered Dose 100 meq .ROUTE .STK-MED ONE Stop: 08/23/19 00:40 Last Admin: 08/23/19 01:13 Dose: Not Given Sodium Chloride (Normal Saline) 10 ml IV ASDIRECTED PRN PRN Reason: Other Last Admin: 08/22/19 20:34 Dose: 10 ml - Problem List Review Problem List Initiated/Reviewed/Updated: Yes - My Orders Last 24 Hours: My Active Orders 08/23/19 21:00 Pantoprazole [ProTONIX IV] 40 mg IVPUSH Q12H 08/24/19 08:18 Dextrose 50% in Water 50 ml IVPUSH ASDIRECTED PRN 08/24/19 09:00 Remove Patch 1 ea TRDERM DAILY 08/24/19 13:01 HYDROmorphone [Dilaudid] 1 mg IVPUSH Q4H PRN 08/24/19 14:30 Dextrose 5%-0.9% NaCl [Dextrose 5%-Normal Saline] 1,000 ml IV ASDIRECTED 08/24/19 17:53 Insulin Lispro [HumaLOG] See Protocol SUBCUT QIDACANDBED 08/24/19 Dinner Clear Liquid Diet [DIET] 08/25/19 02:30 MAGNESIUM [CHEM] Q4H 08/25/19 05:11 CBC WITH AUTO DIFF [HEME] AM PHOSPHORUS [CHEM] AM 08/26/19 05:11 CBC WITH AUTO DIFF [HEME] AM PHOSPHORUS [CHEM] AM 08/26/19 13:00 Remove Patch 0 ea TRDERM ONETIME ONE 08/27/19 10:00 Ibuprofen [Motrin] 600 mg PO Q6H PRN - Plan Plan:: The patient was seen and examined at bedside in concert with the medical student. The assessment and plans were discussed and agreed upon with me. She re -gap but AG now back to normal. She is still symptomatic. Goal is to keep insulin drip running and D5W until she is able to take something in orally. We will hold Reglan and and re-schedule gastric emptying study to r/o gastroparesis.
[2019-08-24] MEDS: Insulin Lispro 100 Units/ML 3 ML Vial SUBCUT SCH ×2 (17:55→21:24)
[2019-08-24] MEDS: Temazepam 15 MG Cap PO PRN (21:16)
[2019-08-24] MEDS: Sodium Chloride 0.9% 1,000 ML IV SCH (21:58)
[2019-08-25] MEDS: HYDROmorphone 1 MG/ML Syringe IVPUSH PRN ×5 (03:40→20:44)
[2019-08-25] MEDS: Sodium Chloride 0.9% 1,000 ML IV SCH ×3 (05:43→22:05)
[2019-08-25] MEDS: Insulin Lispro 100 Units/ML 3 ML Vial SUBCUT SCH ×4 (06:26→21:56)
[2019-08-25] MEDS: Ondansetron 4 MG/2 ML SDV IV PRN ×3 (07:35→18:22)
[2019-08-25] MEDS: Ketorolac 15 MG/ML SDV IVPUSH PRN (07:48)
[2019-08-25] MEDS: Nicotine 21 MG/24 Hr Patch TRDERM SCH (08:03)
[2019-08-25] MEDS: Pantoprazole 40 MG Vial IVPUSH SCH ×2 (08:05→20:45)
[2019-08-25] MEDS ORDERED: Magnesium Sulfate/Water 4 GM in Premix Bag 1 BAG IV ONE (09:54)
[2019-08-25] MEDS ORDERED: Potassium Chloride 20 MEQ Tab.ER PO ONE (10:00)
[2019-08-25] MEDS ORDERED: Phosphorus #1 250 MG Tab PO ONE (12:15)
[2019-08-25] MEDS: hydrALAZINE 20 MG/ML SDV IVPUSH PRN ×2 (13:28→21:09)
--- NOTE | 2019-08-25 16:33 | PCM.PN ---
<Vamshi Sharma - Last Filed: 08/25/19 16:42> - General Info Date of Service: 08/25/19 Admission Dx/Problem (Free Text): Admission Diagnosis/Problem Admission Diagnosis/Problem Diabetic ketoacidosis Subjective Update: Pt doing clinically better today. Able to tolerate liquids, and asking if she can add some crackers to her soup. She does not yet feel comfortable trying solid foods as she does not want to become nauseous again. She is also complaining of severe, sharp abdominal pain. She has been passing gas and had a bowel movement yesterday. Pain Score: 6 - Review of Systems General: Reports: No Symptoms HEENT: Reports: No Symptoms Pulmonary: Reports: No Symptoms Cardiovascular: Reports: No Symptoms Gastrointestinal: Reports: Abdominal Pain, Nausea 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: Reports: No Symptoms Musculoskeletal: Reports: No Symptoms Skin: Reports: No Symptoms Neurological: Reports: No Symptoms Psychiatric: Reports: No Symptoms - Patient Data Vitals - Most Recent: Last Vital Signs Temp 97.1 F 08/25/19 11:34 Pulse 88 08/24/19 20:00 Resp 16 08/25/19 11:34 BP 135/101 H 08/25/19 11:34 Pulse Ox 99 08/25/19 11:34 Weight - Most Recent: 65.1 kg I&O - Last 24 Hours: Intake & Output 08/25/19 08/25/19 08/25/19 06:59 14:59 22:59 Intake Total 1397 Output Total 100 Balance 1297 Lab Results Last 24 Hours: Laboratory Results - last 24 hr 08/24/19 08/24/19 08/25/19 Range/Units 17:44 21:14 04:49 WBC (3.98-10.04) K/mm3 RBC (3.98-5.22) M/mm3 Hgb (11.2-15.7) gm/dl Hct (34.1-44.9) % MCV (79.4-94.8) fl MCH (25.6-32.2) pg MCHC (32.2-35.5) g/dl RDW Std Deviation (36.4-46.3) fL Plt Count (182-369) K/mm3 MPV (9.4-12.3) fl Neut % (Auto) (34.0-71.1) % Lymph % (Auto) (19.3-51.7) % [place] % (Auto) (4.7-12.5) % Eos % (Auto) (0.7-5.8) Baso % (Auto) (0.1-1.2) % Neut # (Auto) (1.56-6.13) K/mm3 Lymph # (Auto) (1.18-3.74) K/mm3 [place] # (Auto) (0.24-0.36) K/mm3 Eos # (Auto) (0.04-0.36) K/mm3 Baso # (Auto) (0.01-0.08) K/mm3 Sodium (136-145) mEq/L Potassium (3.5-5.1) mEq/L Chloride (98-107) mEq/L Carbon Dioxide (21-32) mEq/L Anion Gap (5-15) BUN (7-18) mg/dL Creatinine (0.55-1.02) mg/dL Est Cr Clr Drug Dosing mL/min Estimated GFR (MDRD) (>60) mL/min BUN/Creatinine Ratio (14-18) Glucose (74-106) mg/dL POC Glucose 147 H 226 H (70-105) mg/dL Calcium (8.5-10.1) mg/dL Phosphorus (2.6-4.7) mg/dL Magnesium 2.1 (1.8-2.4) mg/dl 08/25/19 08/25/19 08/25/19 Range/Units 04:49 04:49 06:00 WBC 6.47 (3.98-10.04) K/mm3 RBC 3.96 L (3.98-5.22) M/mm3 Hgb 11.6 (11.2-15.7) gm/dl Hct 34.4 (34.1-44.9) % MCV 86.9 (79.4-94.8) fl MCH 29.3 (25.6-32.2) pg MCHC 33.7 (32.2-35.5) g/dl RDW Std Deviation 40.1 (36.4-46.3) fL Plt Count 125 L (182-369) K/mm3 MPV 10.0 (9.4-12.3) fl Neut % (Auto) 53.5 (34.0-71.1) % Lymph % (Auto) 38.8 (19.3-51.7) % [place] % (Auto) 4.6 L (4.7-12.5) % Eos % (Auto) 2.6 (0.7-5.8) Baso % (Auto) 0.3 (0.1-1.2) % Neut # (Auto) 3.46 (1.56-6.13) K/mm3 Lymph # (Auto) 2.51 (1.18-3.74) K/mm3 [place] # (Auto) 0.30 (0.24-0.36) K/mm3 Eos # (Auto) 0.17 (0.04-0.36) K/mm3 Baso # (Auto) 0.02 (0.01-0.08) K/mm3 Sodium 144 (136-145) mEq/L Potassium 3.3 L (3.5-5.1) mEq/L Chloride 111 H (98-107) mEq/L Carbon Dioxide 27 (21-32) mEq/L Anion Gap 9.3 (5-15) BUN 9 (7-18) mg/dL Creatinine 0.8 (0.55-1.02) mg/dL Est Cr Clr Drug Dosing 91.88 mL/min Estimated GFR (MDRD) > 60 (>60) mL/min BUN/Creatinine Ratio 11.3 L (14-18) Glucose 144 H (74-106) mg/dL POC Glucose 136 H (70-105) mg/dL Calcium 8.1 L (8.5-10.1) mg/dL Phosphorus 1.6 L (2.6-4.7) mg/dL Magnesium (1.8-2.4) mg/dl 08/25/19 Range/Units 11:32 WBC (3.98-10.04) K/mm3 RBC (3.98-5.22) M/mm3 Hgb (11.2-15.7) gm/dl Hct (34.1-44.9) % MCV (79.4-94.8) fl MCH (25.6-32.2) pg MCHC (32.2-35.5) g/dl RDW Std Deviation (36.4-46.3) fL Plt Count (182-369) K/mm3 MPV (9.4-12.3) fl Neut % (Auto) (34.0-71.1) % Lymph % (Auto) (19.3-51.7) % [place] % (Auto) (4.7-12.5) % Eos % (Auto) (0.7-5.8) Baso % (Auto) (0.1-1.2) % Neut # (Auto) (1.56-6.13) K/mm3 Lymph # (Auto) (1.18-3.74) K/mm3 [place] # (Auto) (0.24-0.36) K/mm3 Eos # (Auto) (0.04-0.36) K/mm3 Baso # (Auto) (0.01-0.08) K/mm3 Sodium (136-145) mEq/L Potassium (3.5-5.1) mEq/L Chloride (98-107) mEq/L Carbon Dioxide (21-32) mEq/L Anion Gap (5-15) BUN (7-18) mg/dL Creatinine (0.55-1.02) mg/dL Est Cr Clr Drug Dosing mL/min Estimated GFR (MDRD) (>60) mL/min BUN/Creatinine Ratio (14-18) Glucose (74-106) mg/dL POC Glucose 145 H (70-105) mg/dL Calcium (8.5-10.1) mg/dL Phosphorus (2.6-4.7) mg/dL Magnesium (1.8-2.4) mg/dl Med Orders - Current: Current Medications Acetaminophen (Tylenol) 650 mg PO Q4H PRN PRN Reason: Pain (Mild 1-3)/fever Albuterol/Ipratropium (Duoneb 3.0-0.5 Mg/3 Ml) 3 ml NEB Q4H PRN PRN Reason: Shortness Of Breath/wheezing Dextrose/Water (Dextrose 50% In Water) 50 ml IVPUSH ASDIRECTED PRN PRN Reason: Hypoglycemia Last Admin: 08/24/19 08:25 Dose: 50 ml Hydralazine HCl (Apresoline) 20 mg IVPUSH Q4H PRN PRN Reason: Hypertension Last Admin: 08/25/19 13:28 Dose: 20 mg Hydromorphone HCl (Dilaudid) 1 mg IVPUSH Q4H PRN PRN Reason: Pain Last Admin: 08/25/19 16:08 Dose: 1 mg Insulin Human Regular 100 unit (/ Sodium Chloride) 100 mls @ 6 mls/hr IV TITRATE [facility]; Protocol Last Titration: 08/24/19 14:20 Dose: 0 unit/hr, 0 mls/hr Sodium Chloride (Normal Saline) 1,000 mls @ 125 mls/hr IV ASDIRECTED [facility] Last Admin: 08/25/19 13:28 Dose: 125 mls/hr Ibuprofen (Motrin) 600 mg PO Q6H PRN PRN Reason: Pain Insulin Human Lispro (Humalog) 0 unit SUBCUT QIDACANDBED [facility]; Protocol Last Admin: 08/25/19 12:05 Dose: Not Given Ketorolac Tromethamine (Toradol) 15 mg IVPUSH Q6H PRN PRN Reason: Pain (moderate 4-6) Stop: 08/27/19 04:01 Last Admin: 08/25/19 07:48 Dose: 15 mg Metoprolol Tartrate (Lopressor) 5 mg IVPUSH Q4H PRN PRN Reason: Tachycardia Miscellaneous Information (Remove Patch) 1 ea TRDERM DAILY [facility] Last Admin: 08/25/19 08:06 Dose: 1 ea Miscellaneous Information (Remove Patch) 0 ea TRDERM ONETIME ONE Stop: 08/26/19 13:01 Nicotine (Habitrol) 21 mg TRDERM DAILY [facility] Last Admin: 08/25/19 08:03 Dose: 21 mg Ondansetron HCl (Zofran) 4 mg IV Q6H PRN PRN Reason: Nausea/Vomiting Last Admin: 08/25/19 13:18 Dose: 4 mg Pantoprazole Sodium (Protonix Iv) 40 mg IVPUSH Q12H [facility] Last Admin: 08/25/19 08:05 Dose: 40 mg Sodium Chloride (Saline Flush) 10 ml FLUSH ASDIRECTED PRN PRN Reason: Keep Vein Open Last Admin: 08/22/19 20:34 Dose: 10 ml Temazepam (Restoril) 15 mg PO BEDTIME PRN PRN Reason: Sleep Last Admin: 08/24/19 21:16 Dose: 15 mg Discontinued Medications Hydrocodone Bitart/Acetaminophen ([place] 325-5 Mg) 1 tab PO Q4H PRN PRN Reason: Pain (moderate 4-6) Hydromorphone HCl (Dilaudid) 0.25 mg IVPUSH Q2H PRN PRN Reason: Pain (severe 7-10) Sodium Chloride (Normal Saline) 1,000 mls @ 999 mls/hr IV ONETIME ONE Stop: 08/22/19 19:03 Last Admin: 08/22/19 20:34 Dose: Not Given Sodium Chloride (Normal Saline) 1,000 mls @ 999 mls/hr IV ONETIME ONE Stop: 08/22/19 20:37 Last Admin: 08/22/19 20:34 Dose: 999 mls/hr Lactated Ringer's (Ringers, Lactated) 1,000 mls @ 999 mls/hr IV .BOLUS ONE Stop: 08/22/19 21:23 Last Admin: 08/22/19 21:48 Dose: 999 mls/hr Lactated Ringer's (Ringers, Lactated) 1,000 mls @ 999 mls/hr IV .BOLUS ONE Stop: 08/22/19 23:02 Last Admin: 08/23/19 00:09 Dose: 999 mls/hr Insulin Human Regular 100 unit (/ Sodium Chloride) 100 mls @ 381.01 mls/hr IV TITRATE [facility]ON[facility]; Protocol Lactated Ringer's (Ringers, Lactated) 1,000 mls @ 999 mls/hr IV ONETIME ONE Stop: 08/23/19 00:33 Last Admin: 08/23/19 00:32 Dose: Not Given Sodium Bicarbonate 150 meq/ (Dextrose/Water) 1,150 mls @ 100 mls/hr IV ONETIME ONE Stop: 08/23/19 11:04 Last Admin: 08/23/19 00:57 Dose: 100 mls/hr Dextrose/Water (Dextrose 5% In Water) 1,000 mls @ 150 mls/hr IV ASDIRECTED TONIO Last Admin: 08/23/19 07:13 Dose: 150 mls/hr Dextrose/Sodium Chloride (Dextrose 5%-Normal Saline) 1,000 mls @ 100 mls/hr IV ASDIRECTED TONIO Last Infusion: 08/24/19 14:20 Dose: 50 mls/hr Magnesium Sulfate 4 gm/ Premix 50 mls @ 12.5 mls/hr IV ONETIME ONE Stop: 08/24/19 11:29 Last Admin: 08/24/19 08:34 Dose: 12.5 mls/hr Dextrose/Sodium Chloride (Dextrose 5%-Normal Saline) 1,000 mls @ 50 mls/hr IV ASDIRECTED [facility] Insulin Glargine (Lantus) 20 unit SUBCUT NOW STA Stop: 08/23/19 23:09 Last Admin: 08/23/19 23:15 Dose: 20 unit Insulin Human Regular (Humulin R) 5 unit SUBCUT BIDAC [facility] Last Admin: 08/22/19 19:45 Dose: 5 units Insulin Human Regular (Humulin R) Confirm Administered Dose 300 unit .ROUTE .STK -MED ONE Stop: 08/22/19 19:43 Last Admin: 08/22/19 20:23 Dose: Not Given Ketorolac Tromethamine (Toradol) 15 mg IVPUSH ONETIME ONE Stop: 08/22/19 21:47 Last Admin: 08/22/19 21:54 Dose: 15 mg Ketorolac Tromethamine (Toradol) 30 mg IV Q6H PRN PRN Reason: Pain (moderate 4-6) Stop: 08/27/19 04:01 Metoclopramide HCl (Reglan) 7.5 mg IVPUSH ONETIME ONE Stop: 08/22/19 18:04 Last Admin: 08/22/19 20:25 Dose: 7.5 mg Metoclopramide HCl (Reglan) 10 mg IVPUSH Q6H PRN PRN Reason: Nausea/Vomiting Last Admin: 08/24/19 01:57 Dose: 10 mg Ondansetron HCl (Zofran) 4 mg IVPUSH ONETIME ONE Stop: 08/22/19 21:51 Last Admin: 08/22/19 21:54 Dose: 4 mg Ondansetron HCl (Zofran) Confirm Administered Dose 4 mg .ROUTE .STK-MED ONE Stop: 08/22/19 21:54 Last Admin: 08/22/19 22:02 Dose: Not Given Pantoprazole Sodium (Protonix Iv) 20 mg IVPUSH ONETIME ONE Stop: 08/22/19 22:01 Last Admin: 08/22/19 23:23 Dose: 20 mg Pantoprazole Sodium (Protonix) 40 mg PO BID [facility] Last Admin: 09/23/19 20:01 Dose: 40 mg Potassium Chloride (Klor-Con 10) 60 meq PO ONETIME ONE Stop: 08/22/19 23:34 Last Admin: 08/22/19 23:50 Dose: 60 meq Potassium Chloride (Klor-Con 10) 60 meq PO ONETIME ONE Stop: 08/23/19 08:01 Last Admin: 08/23/19 09:03 Dose: 60 meq Potassium Chloride (Klor-Con M20) 60 meq PO ONETIME ONE Stop: 08/24/19 07:31 Last Admin: 08/24/19 08:32 Dose: 60 meq Potassium Chloride (Klor-Con M20) 60 meq PO ONETIME ONE Stop: 08/25/19 10:01 Last Admin: 08/25/19 13:06 Dose: 60 meq Scopolamine (Transderm-Scop) 1.5 mg TRDERM ONETIME ONE Stop: 08/23/19 13:01 Last Admin: 08/23/19 13:25 Dose: 1.5 mg Sodium Bicarbonate (Sodium Bicarbonate 8.4%) Confirm Administered Dose 100 meq .ROUTE .STK-MED ONE Stop: 08/23/19 00:40 Last Admin: 08/23/19 01:13 Dose: Not Given Sodium Chloride (Normal Saline) 10 ml IV ASDIRECTED PRN PRN Reason: Other Last Admin: 08/22/19 20:34 Dose: 10 ml Sodium Phosphate (Neutra-Phos) 250 mg PO ONETIME ONE Stop: 08/25/19 12:16 Last Admin: 08/25/19 13:07 Dose: 250 mg - Exam General: Alert, Oriented, Cooperative, Mild Distress HEENT: Pupils Equal, Pupils Reactive, EOMI, Mucous Membr. Moist/[place] Neck: Supple, Trachea Midline, No JVD. No: Lymphadenopathy Lungs: Clear to Auscultation, Normal Respiratory Effort. No: Crackles, Rales, Rhonchi, Wheezing Cardiovascular: Regular Rate, Regular Rhythm. No: No Murmurs, Gallops, Rubs GI/Abdominal Exam: Soft, No Organomegaly, No Distention, No Abnormal Bruit, Tender (Diffuse, more in LLQ), Abnormal Bowel Sounds (Hypoactive) Back Exam: Normal Inspection, Full Range of Motion Extremities: Normal Inspection, Normal Range of Motion, Non-Tender, No Pedal Edema, Normal Capillary Refill Skin: Warm, Dry, Intact Neurological: No New Focal Deficit Psy/Mental Status: Alert, Normal Affect, Normal Mood - Plan Plan:: Assessment: Acute: Permissive Hyperglycemia - BS in the 200s-300s-> down now - She currently on glucose drip-> discontinued as pt BG is in appropriate range - Monitor BS with ISS coverage Inadequate IV Access - Requested PICC line while patient while still in ED but only got peripheral access line - Now the vein blew on the only IV access --> IV placed by anesthesia this a.m. 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 - Taking a shower helps with her symptoms - UDS is positive for THC; she is a regular user according to her along with Meth - Reglan and Scopolamine patch for symptomatic control -> reglan discontinued for gastric emptying study, cover with Zofran - She may re-GAP if she does not eat-> did re-GAP overnight-> has been corrected appropriately - Possible diabetic gastroparesis, will obtain gastric emptying study-> scheduled tomorrow 929 Marijuana Abuse - Abuse of recreational THC - May explain why she is throwing but symptoms helps if she takes a hot shower Resolved: S/P Coffee-Ground Emesis - Unsure if she had gotten charcoal - Gastric-occult test - PPI BID S/P Acute Kidney Injury - BUN of 32 and Cr of 1.8--> 1.4--> BUN 15, Cr 1.0 - 2/2 Volume Depletion - Received initial volume resuscitation in ED but not adequate S/p DKA - Presented to ED complaints of nausea and vomiting for the past 5 days - She was seen in ED 4 days ago but was sent home - Last A1C 9 on 07/12/2019 - Took her usual SA and LA insulin - Presents with 347 glucose level - Insulin drip S/p Erythrocytosis - Hgb of 17.1-->13.4 - Likely 2/2 hemo-concentration from DKA - She is dehydrated from DKA and GI loss S/p Increased AG with Metabolic Acidosis - 2/2 DKA - AG of 36.9 and CO2 of <5--> now 23 - IV hydration Chronic: HTN, Dysphagia, Chronic Diarrhea, GERD, IBS, Nausea, OA/DJD, Back Pain , Migraines, Seizure Disorder, DM1,Hx/o PE/DVT, Hx/o IDVU, Hx/o MRSA, Eczema, Psoriasis, Anxiety, Depression as well as Hx/o Meth and Marijuana Abuse Plan: She is symptomatic this morning and vomited with dark colored substance Obtain gastric emptying study Sliding scale insulin UDS - Positive for Benzo and THC UA- Negative for UTI IV Aggressive Hydration Accu-check now QID DVT/GI Prophylaxis Dietary and Diabetic Education ADA diet if able to tolerate crackers and soda SW/CM for d/c planning Code status: 1 Additional orders as above <Cassia Rolle T - Last Filed: 08/25/19 17:48> - Patient Data Vitals - Most Recent: Last Vital Signs Temp 36.2 C 08/25/19 11:34 Pulse 88 08/24/19 20:00 Resp 16 08/25/19 11:34 BP 135/101 H 08/25/19 11:34 Pulse Ox 99 08/25/19 11:34 I&O - Last 24 Hours: Intake & Output 08/25/19 08/25/19 08/25/19 06:59 14:59 22:59 Intake Total 1397 Output Total 100 Balance 1297 Lab Results Last 24 Hours: Laboratory Results - last 24 hr 08/24/19 08/24/19 08/25/19 Range/Units 17:44 21:14 04:49 WBC (3.98-10.04) K/mm3 RBC (3.98-5.22) M/mm3 Hgb (11.2-15.7) gm/dl Hct (34.1-44.9) % MCV (79.4-94.8) fl MCH (25.6-32.2) pg MCHC (32.2-35.5) g/dl RDW Std Deviation (36.4-46.3) fL Plt Count (182-369) K/mm3 MPV (9.4-12.3) fl Neut % (Auto) (34.0-71.1) % Lymph % (Auto) (19.3-51.7) % [place] % (Auto) (4.7-12.5) % Eos % (Auto) (0.7-5.8) Baso % (Auto) (0.1-1.2) % Neut # (Auto) (1.56-6.13) K/mm3 Lymph # (Auto) (1.18-3.74) K/mm3 [place] # (Auto) (0.24-0.36) K/mm3 Eos # (Auto) (0.04-0.36) K/mm3 Baso # (Auto) (0.01-0.08) K/mm3 Sodium (136-145) mEq/L Potassium (3.5-5.1) mEq/L Chloride (98-107) mEq/L Carbon Dioxide (21-32) mEq/L Anion Gap (5-15) BUN (7-18) mg/dL Creatinine (0.55-1.02) mg/dL Est Cr Clr Drug Dosing mL/min Estimated GFR (MDRD) (>60) mL/min BUN/Creatinine Ratio (14-18) Glucose (74-106) mg/dL POC Glucose 147 H 226 H (70-105) mg/dL Calcium (8.5-10.1) mg/dL Phosphorus (2.6-4.7) mg/dL Magnesium 2.1 (1.8-2.4) mg/dl 08/25/19 08/25/19 08/25/19 Range/Units 04:49 04:49 06:00 WBC 6.47 (3.98-10.04) K/mm3 RBC 3.96 L (3.98-5.22) M/mm3 Hgb 11.6 (11.2-15.7) gm/dl Hct 34.4 (34.1-44.9) % MCV 86.9 (79.4-94.8) fl MCH 29.3 (25.6-32.2) pg MCHC 33.7 (32.2-35.5) g/dl RDW Std Deviation 40.1 (36.4-46.3) fL Plt Count 125 L (182-369) K/mm3 MPV 10.0 (9.4-12.3) fl Neut % (Auto) 53.5 (34.0-71.1) % Lymph % (Auto) 38.8 (19.3-51.7) % [place] % (Auto) 4.6 L (4.7-12.5) % Eos % (Auto) 2.6 (0.7-5.8) Baso % (Auto) 0.3 (0.1-1.2) % Neut # (Auto) 3.46 (1.56-6.13) K/mm3 Lymph # (Auto) 2.51 (1.18-3.74) K/mm3 [place] # (Auto) 0.30 (0.24-0.36) K/mm3 Eos # (Auto) 0.17 (0.04-0.36) K/mm3 Baso # (Auto) 0.02 (0.01-0.08) K/mm3 Sodium 144 (136-145) mEq/L Potassium 3.3 L (3.5-5.1) mEq/L Chloride 111 H (98-107) mEq/L Carbon Dioxide 27 (21-32) mEq/L Anion Gap 9.3 (5-15) BUN 9 (7-18) mg/dL Creatinine 0.8 (0.55-1.02) mg/dL Est Cr Clr Drug Dosing 91.88 mL/min Estimated GFR (MDRD) > 60 (>60) mL/min BUN/Creatinine Ratio 11.3 L (14-18) Glucose 144 H (74-106) mg/dL POC Glucose 136 H (70-105) mg/dL Calcium 8.1 L (8.5-10.1) mg/dL Phosphorus 1.6 L (2.6-4.7) mg/dL Magnesium (1.8-2.4) mg/dl 08/25/19 Range/Units 11:32 WBC (3.98-10.04) K/mm3 RBC (3.98-5.22) M/mm3 Hgb (11.2-15.7) gm/dl Hct (34.1-44.9) % MCV (79.4-94.8) fl MCH (25.6-32.2) pg MCHC (32.2-35.5) g/dl RDW Std Deviation (36.4-46.3) fL Plt Count (182-369) K/mm3 MPV (9.4-12.3) fl Neut % (Auto) (34.0-71.1) % Lymph % (Auto) (19.3-51.7) % [place] % (Auto) (4.7-12.5) % Eos % (Auto) (0.7-5.8) Baso % (Auto) (0.1-1.2) % Neut # (Auto) (1.56-6.13) K/mm3 Lymph # (Auto) (1.18-3.74) K/mm3 [place] # (Auto) (0.24-0.36) K/mm3 Eos # (Auto) (0.04-0.36) K/mm3 Baso # (Auto) (0.01-0.08) K/mm3 Sodium (136-145) mEq/L Potassium (3.5-5.1) mEq/L Chloride (98-107) mEq/L Carbon Dioxide (21-32) mEq/L Anion Gap (5-15) BUN (7-18) mg/dL Creatinine (0.55-1.02) mg/dL Est Cr Clr Drug Dosing mL/min Estimated GFR (MDRD) (>60) mL/min BUN/Creatinine Ratio (14-18) Glucose (74-106) mg/dL POC Glucose 145 H (70-105) mg/dL Calcium (8.5-10.1) mg/dL Phosphorus (2.6-4.7) mg/dL Magnesium (1.8-2.4) mg/dl Med Orders - Current: Current Medications Acetaminophen (Tylenol) 650 mg PO Q4H PRN PRN Reason: Pain (Mild 1-3)/fever Albuterol/Ipratropium (Duoneb 3.0-0.5 Mg/3 Ml) 3 ml NEB Q4H PRN PRN Reason: Shortness Of Breath/wheezing Dextrose/Water (Dextrose 50% In Water) 50 ml IVPUSH ASDIRECTED PRN PRN Reason: Hypoglycemia Last Admin: 08/24/19 08:25 Dose: 50 ml Hydralazine HCl (Apresoline) 20 mg IVPUSH Q4H PRN PRN Reason: Hypertension Last Admin: 08/25/19 13:28 Dose: 20 mg Hydromorphone HCl (Dilaudid) 1 mg IVPUSH Q4H PRN PRN Reason: Pain Last Admin: 08/25/19 16:08 Dose: 1 mg Insulin Human Regular 100 unit (/ Sodium Chloride) 100 mls @ 6 mls/hr IV TITRATE [facility]; Protocol Last Titration: 08/24/19 14:20 Dose: 0 unit/hr, 0 mls/hr Sodium Chloride (Normal Saline) 1,000 mls @ 125 mls/hr IV ASDIRECTED [facility] Last Admin: 08/25/19 13:28 Dose: 125 mls/hr Ibuprofen (Motrin) 600 mg PO Q6H PRN PRN Reason: Pain Insulin Human Lispro (Humalog) 0 unit SUBCUT QIDACANDBED [facility]; Protocol Last Admin: 08/25/19 12:05 Dose: Not Given Ketorolac Tromethamine (Toradol) 15 mg IVPUSH Q6H PRN PRN Reason: Pain (moderate 4-6) Stop: 08/27/19 04:01 Last Admin: 08/25/19 07:48 Dose: 15 mg Metoprolol Tartrate (Lopressor) 5 mg IVPUSH Q4H PRN PRN Reason: Tachycardia Miscellaneous Information (Remove Patch) 1 ea TRDERM DAILY [facility] Last Admin: 08/25/19 08:06 Dose: 1 ea Miscellaneous Information (Remove Patch) 0 ea TRDERM ONETIME ONE Stop: 08/26/19 13:01 Nicotine (Habitrol) 21 mg TRDERM DAILY [facility] Last Admin: 08/25/19 08:03 Dose: 21 mg Ondansetron HCl (Zofran) 4 mg IV Q6H PRN PRN Reason: Nausea/Vomiting Last Admin: 08/25/19 13:18 Dose: 4 mg Pantoprazole Sodium (Protonix Iv) 40 mg IVPUSH Q12H [facility] Last Admin: 08/25/19 08:05 Dose: 40 mg Sodium Chloride (Saline Flush) 10 ml FLUSH ASDIRECTED PRN PRN Reason: Keep Vein Open Last Admin: 08/22/19 20:34 Dose: 10 ml Temazepam (Restoril) 15 mg PO BEDTIME PRN PRN Reason: Sleep Last Admin: 08/24/19 21:16 Dose: 15 mg Discontinued Medications Hydrocodone Bitart/Acetaminophen ([place] 325-5 Mg) 1 tab PO Q4H PRN PRN Reason: Pain (moderate 4-6) Hydromorphone HCl (Dilaudid) 0.25 mg IVPUSH Q2H PRN PRN Reason: Pain (severe 7-10) Sodium Chloride (Normal Saline) 1,000 mls @ 999 mls/hr IV ONETIME ONE Stop: 08/22/19 19:03 Last Admin: 08/22/19 20:34 Dose: Not Given Sodium Chloride (Normal Saline) 1,000 mls @ 999 mls/hr IV ONETIME ONE Stop: 08/22/19 20:37 Last Admin: 08/22/19 20:34 Dose: 999 mls/hr Lactated Ringer's (Ringers, Lactated) 1,000 mls @ 999 mls/hr IV .BOLUS ONE Stop: 08/22/19 21:23 Last Admin: 08/22/19 21:48 Dose: 999 mls/hr Lactated Ringer's (Ringers, Lactated) 1,000 mls @ 999 mls/hr IV .BOLUS ONE Stop: 08/22/19 23:02 Last Admin: 08/23/19 00:09 Dose: 999 mls/hr Insulin Human Regular 100 unit (/ Sodium Chloride) 100 mls @ 381.01 mls/hr IV TITRATE TONIO; Protocol Lactated Ringer's (Ringers, Lactated) 1,000 mls @ 999 mls/hr IV ONETIME ONE Stop: 08/23/19 00:33 Last Admin: 08/23/19 00:32 Dose: Not Given Sodium Bicarbonate 150 meq/ (Dextrose/Water) 1,150 mls @ 100 mls/hr IV ONETIME ONE Stop: 08/23/19 11:04 Last Admin: 08/23/19 00:57 Dose: 100 mls/hr Dextrose/Water (Dextrose 5% In Water) 1,000 mls @ 150 mls/hr IV ASDIRECTED TONIO Last Admin: 08/23/19 07:13 Dose: 150 mls/hr Dextrose/Sodium Chloride (Dextrose 5%-Normal Saline) 1,000 mls @ 100 mls/hr IV ASDIRECTED TONIO Last Infusion: 08/24/19 14:20 Dose: 50 mls/hr Magnesium Sulfate 4 gm/ Premix 50 mls @ 12.5 mls/hr IV ONETIME ONE Stop: 08/24/19 11:29 Last Admin: 08/24/19 08:34 Dose: 12.5 mls/hr Dextrose/Sodium Chloride (Dextrose 5%-Normal Saline) 1,000 mls @ 50 mls/hr IV ASDIRECTED TONIO Insulin Glargine (Lantus) 20 unit SUBCUT NOW STA Stop: 08/23/19 23:09 Last Admin: 08/23/19 23:15 Dose: 20 unit Insulin Human Regular (Humulin R) 5 unit SUBCUT BIDAC TONIO Last Admin: 08/22/19 19:45 Dose: 5 units Insulin Human Regular (Humulin R) Confirm Administered Dose 300 unit .ROUTE .STK -MED ONE Stop: 08/22/19 19:43 Last Admin: 08/22/19 20:23 Dose: Not Given Ketorolac Tromethamine (Toradol) 15 mg IVPUSH ONETIME ONE Stop: 08/22/19 21:47 Last Admin: 08/22/19 21:54 Dose: 15 mg Ketorolac Tromethamine (Toradol) 30 mg IV Q6H PRN PRN Reason: Pain (moderate 4-6) Stop: 08/27/19 04:01 Metoclopramide HCl (Reglan) 7.5 mg IVPUSH ONETIME ONE Stop: 08/22/19 18:04 Last Admin: 08/22/19 20:25 Dose: 7.5 mg Metoclopramide HCl (Reglan) 10 mg IVPUSH Q6H PRN PRN Reason: Nausea/Vomiting Last Admin: 08/24/19 01:57 Dose: 10 mg Ondansetron HCl (Zofran) 4 mg IVPUSH ONETIME ONE Stop: 08/22/19 21:51 Last Admin: 08/22/19 21:54 Dose: 4 mg Ondansetron HCl (Zofran) Confirm Administered Dose 4 mg .ROUTE .STK-MED ONE Stop: 08/22/19 21:54 Last Admin: 08/22/19 22:02 Dose: Not Given Pantoprazole Sodium (Protonix Iv) 20 mg IVPUSH ONETIME ONE Stop: 08/22/19 22:01 Last Admin: 08/22/19 23:23 Dose: 20 mg Pantoprazole Sodium (Protonix) 40 mg PO BID TONIO Last Admin: 08/23/19 20:01 Dose: 40 mg Potassium Chloride (Klor-Con 10) 60 meq PO ONETIME ONE Stop: 08/22/19 23:34 Last Admin: 08/22/19 23:50 Dose: 60 meq Potassium Chloride (Klor-Con 10) 60 meq PO ONETIME ONE Stop: 08/23/19 08:01 Last Admin: 08/23/19 09:03 Dose: 60 meq Potassium Chloride (Klor-Con M20) 60 meq PO ONETIME ONE Stop: 08/24/19 07:31 Last Admin: 08/24/19 08:32 Dose: 60 meq Potassium Chloride (Klor-Con M20) 60 meq PO ONETIME ONE Stop: 08/25/19 10:01 Last Admin: 08/25/19 13:06 Dose: 60 meq Scopolamine (Transderm-Scop) 1.5 mg TRDERM ONETIME ONE Stop: 08/23/19 13:01 Last Admin: 08/23/19 13:25 Dose: 1.5 mg Sodium Bicarbonate (Sodium Bicarbonate 8.4%) Confirm Administered Dose 100 meq .ROUTE .STK-MED ONE Stop: 08/23/19 00:40 Last Admin: 08/23/19 01:13 Dose: Not Given Sodium Chloride (Normal Saline) 10 ml IV ASDIRECTED PRN PRN Reason: Other Last Admin: 08/22/19 20:34 Dose: 10 ml Sodium Phosphate (Neutra-Phos) 250 mg PO ONETIME ONE Stop: 08/25/19 12:16 Last Admin: 08/25/19 13:07 Dose: 250 mg - Problem List Review Problem List Initiated/Reviewed/Updated: Yes - My Orders Last 24 Hours: My Active Orders 08/24/19 17:53 Insulin Lispro [HumaLOG] See Protocol SUBCUT QIDACANDBED 08/24/19 21:00 Sodium Chloride 0.9% [Normal Saline] 1,000 ml IV ASDIRECTED 08/25/19 Breakfast ADA Diabetic [[employer] Diet] [DIET] 08/26/19 05:11 BMP [BASIC METABOLIC PANEL,BMP] [CHEM] AM CBC WITH AUTO DIFF [HEME] AM PHOSPHORUS [CHEM] AM 08/26/19 09:14 Gastric Empty Study [NM] Routine 08/26/19 13:00 Remove Patch 0 ea TRDERM ONETIME ONE 08/27/19 05:11 BMP [BASIC METABOLIC PANEL,BMP] [CHEM] AM 08/27/19 10:00 Ibuprofen [Motrin] 600 mg PO Q6H PRN 08/28/19 05:11 BMP [BASIC METABOLIC PANEL,BMP] [CHEM] AM - Plan Plan:: Patient was seen and examined in concert with the medical student. The assessment and plans were discussed and agreed upon with me. Patient feels a bit better but still symptomatic. She is also exhibiting drug seeking behavior. She is low on K and PO4. We will replete. She is scheduled for gastric emptying study tomorrow. So far she has not re-GAP.
[2019-08-26] MEDS: Ketorolac 15 MG/ML SDV IVPUSH PRN (00:07)
[2019-08-26] MEDS: Ondansetron 4 MG/2 ML SDV IV PRN ×2 (00:36→11:51)
[2019-08-26] MEDS: HYDROmorphone 1 MG/ML Syringe IVPUSH PRN ×4 (00:40→11:54)
[2019-08-26] MEDS: Sodium Chloride 0.9% 1,000 ML IV SCH (05:50)
[2019-08-26] MEDS: Insulin Lispro 100 Units/ML 3 ML Vial SUBCUT SCH ×2 (06:55→12:06)
[2019-08-26] MEDS: Pantoprazole 40 MG Vial IVPUSH SCH (08:30)
--- NOTE | 2019-08-26 11:27 | NM ---
Gastric emptying study Technique: 1.0 mCi of technetium 99m sulfur colloid was scrambled with one egg which was ingested by the patient with 4 ounces of water. Findings: 41% ejection fraction noted at 2 hours. Gastric retention at 2 hours is 59%. Impression: 1. 41% ejection fraction at 2 hours which is at the lower limits of normal. Diagnostic code #1
[2019-08-26] MEDS: Nicotine 21 MG/24 Hr Patch TRDERM SCH (12:01)
[2019-08-26] MEDS ORDERED: Lisinopril 5 MG Tab PO SCH (12:15)
--- NOTE | 2019-08-26 15:51 | PCM.DCSUM1 ---
Discharge Summary - Hospital Course HPI Initial Comments: This is a 34 yo white female with past medical hx/o HTN, Dysphagia, Chronic Diarrhea, GERD, IBS, Nausea, OA/DJD, Back Pain, Migraines, Seizure Disorder, DM1 ,Hx/o PE/DVT, Hx/o IDVU, Hx/o MRSA, Eczema, Psoriasis, Anxiety, Depression and Hx/o Meth and Marijuana Abuse who presents to ED with complaints of 5 day hx/o nausea and vomiting associated with abdominal pain, generalized weakness, malaise, chest pain, shortness of breath, chills, hematemesis and melenic stool. She states she was seen in ED 4 days ago but was sent home after she received some treatment. She usually on SA and LA insulin. She took her regimen as scheduled this morning. However had about 347 of glucose level prior to on arrival to ED. Her initial work up in ED shows a CBC remarkable for WBC of 13.19, RBC of 5.83, Hgb of 17.1 Hct of 51.4, Neutrophils of 90% and Lymphocytes of 8%. Her chemistry is significant for Cl of 97, AG of 36.9, BUN of 32, Cr of 1.8, BS of 459, Serum Osm of 343, Ca of 10.2, and Alk Phos of 123. Patient is coming in primarily for treatment of DKA. Diagnosis: Stroke: No - Discharge Data Discharge Date: 08/26/19 Discharge Disposition: Home, Self-Care 01 Condition: Good - Referral to Home Health Primary Care Physician: Fanta Canseco PA-C - Patient Summary/Data Consults: Consultations 08/22/19 22:31 Consult to Case Management/Bond Writer [CONS] Routine Consult to Diabetic Nurse Specialist [CONS] Routine Consult to Professor Of Religious Studies [CONS] Routine 08/23/19 10:55 Consult to Percher [Consult to Diabetic Nurse Specialist] [CONS] Routine Hospital Course: Patient was admitted and placed on an insulin drip. We were able to slowly correct her metabolic acidosis, hypokalemia, hypomagnesemia, and switch her over to by mouth diet. She had recurrent abdominal pain and there was concern about gastroparesis. Gastric emptying study was performed today and she had a 41 % ejection fraction at 2 hours which is at the lower limits of normal. Patient was transferred to the floor and she was able to tolerate food without difficulty and elected to go home. - Patient Instructions Diet: Diabetic Diet Activity: As Tolerated Driving: May Drive Today Showering/Bathing: May Shower Other/Special Instructions: Follow up with endocrinology. - Discharge Plan *PRESCRIPTION DRUG MONITORING PROGRAM REVIEWED*: No *COPY OF PRESCRIPTION DRUG MONITORING REPORT IN PATIENT TANNER: No Home Medications: Home Meds Insulin Aspart [Novolog Flexpen] See Protocol SUBCNJ TIDMEALS 01/05/18 [History] Insulin Degludec [Tresiba] 27 unit SQ DAILY 12/18/18 [History] Buprenorphine HCl/Naloxone HCl [Suboxone 4 mg-1 mg Sl Film] 8 mg PO BID [History] Metoclopramide HCl [Reglan] 10 mg PO QID PRN #15 tablet 06/27/19 [Rx] Ondansetron [Zofran ODT] 4 mg PO Q6H PRN #20 tab.dis 06/27/19 [Rx] Citalopram Hydrobromide [Celexa] 20 mg PO DAILY 07/30/19 [History] Lisinopril 5 mg PO DAILY 07/30/19 [History] Pantoprazole [ProTONIX] 20 mg PO DAILY 07/30/19 [History] Insulin Lispro [HumaLOG] 0 unit SUBCUT QIDACANDBED vial 08/26/19 [Rx] Lisinopril [Prinivil] 5 mg PO DAILY tablet 08/26/19 [Rx] Nicotine [Habitrol] 21 mg TRDERM DAILY patch 08/26/19 [Rx] Oxygen Therapy Mode: Room Air Patient Handouts: Diabetic Ketoacidosis, What You Need to Know About Marijuana Use, Preventing Diabetic Ketoacidosis, Steps to Quit Smoking Forms: ED Department Discharge Referrals: Fanta Canseco PA-C [Primary Care Provider] - 09/02/19 11:30 am (Please follow-up with your primary care provider as scheduled on September 02 at 1130. ) Aspen Reyez NP [Ordering Only Provider] - 09/23/19 1:30 pm (Endocrinology appointment. This appointment is in Central Standard Time.) - Discharge Summary/Plan Comment DC Time >30 min.: Yes Discharge Summary/Plan Comment: Discharge home to follow up with endocrinology. Continue home diabetic regimen. It is very important that you monitor your blood sugars, use carb correction, and are compliant with your medical care. - General Info Date of Service: 08/26/19 Admission Dx/Problem (Free Text: Admission Diagnosis/Problem Admission Diagnosis/Problem Diabetic ketoacidosis Subjective Update: Patient is doing well today. She did have some nausea this morning, and after abdominal exam. Patient tolerated her lunch well without any pain, nausea, or vomiting. - Review of Systems General: Reports: No Symptoms HEENT: Reports: No Symptoms Pulmonary: Reports: No Symptoms Cardiovascular: Reports: No Symptoms Gastrointestinal: Reports: No Symptoms Musculoskeletal: Reports: No Symptoms Skin: Reports: No Symptoms Neurological: Reports: No Symptoms - Patient Data Vitals - Most Recent: Last Vital Signs Temp 98.3 F 08/26/19 12:00 Pulse 92 08/26/19 12:00 Resp 16 08/26/19 12:00 BP 160/91 H 08/26/19 13:08 Pulse Ox 99 08/26/19 12:00 Weight - Most Recent: 145 lb 3.2 oz I&O - Last 24 hours: Intake & Output 08/26/19 08/26/19 08/26/19 06:59 14:59 22:59 Intake Total 1612 920 Output Total 1000 650 Balance 612 270 Lab Results - Last 24 hrs: Laboratory Results - last 24 hr 08/25/19 08/25/19 08/26/19 Range/Units 18:14 21:52 05:07 WBC 3.93 L (3.98-10.04) K/mm3 RBC 4.52 (3.98-5.22) M/mm3 Hgb 12.8 (11.2-15.7) gm/dl Hct 39.2 (34.1-44.9) % MCV 86.7 (79.4-94.8) fl MCH 28.3 (25.6-32.2) pg MCHC 32.7 (32.2-35.5) g/dl RDW Std Deviation 39.7 (36.4-46.3) fL Plt Count 114 L (182-369) K/mm3 MPV 10.8 (9.4-12.3) fl Neut % (Auto) 46.6 (34.0-71.1) % Lymph % (Auto) 45.0 (19.3-51.7) % [place] % (Auto) 5.3 (4.7-12.5) % Eos % (Auto) 2.5 (0.7-5.8) Baso % (Auto) 0.3 (0.1-1.2) % Neut # (Auto) 1.83 (1.56-6.13) K/mm3 Lymph # (Auto) 1.77 (1.18-3.74) K/mm3 [place] # (Auto) 0.21 L (0.24-0.36) K/mm3 Eos # (Auto) 0.10 (0.04-0.36) K/mm3 Baso # (Auto) 0.01 (0.01-0.08) K/mm3 Sodium (136-145) mEq/L Potassium (3.5-5.1) mEq/L Chloride (98-107) mEq/L Carbon Dioxide (21-32) mEq/L Anion Gap (5-15) BUN (7-18) mg/dL Creatinine (0.55-1.02) mg/dL Est Cr Clr Drug Dosing mL/min Estimated GFR (MDRD) (>60) mL/min BUN/Creatinine Ratio (14-18) Glucose (74-106) mg/dL POC Glucose 189 H 176 H (70-105) mg/dL Calcium (8.5-10.1) mg/dL Phosphorus (2.6-4.7) mg/dL 08/26/19 08/26/19 08/26/19 Range/Units 05:07 05:48 06:47 WBC (3.98-10.04) K/mm3 RBC (3.98-5.22) M/mm3 Hgb (11.2-15.7) gm/dl Hct (34.1-44.9) % MCV (79.4-94.8) fl MCH (25.6-32.2) pg MCHC (32.2-35.5) g/dl RDW Std Deviation (36.4-46.3) fL Plt Count (182-369) K/mm3 MPV (9.4-12.3) fl Neut % (Auto) (34.0-71.1) % Lymph % (Auto) (19.3-51.7) % [place] % (Auto) (4.7-12.5) % Eos % (Auto) (0.7-5.8) Baso % (Auto) (0.1-1.2) % Neut # (Auto) (1.56-6.13) K/mm3 Lymph # (Auto) (1.18-3.74) K/mm3 [place] # (Auto) (0.24-0.36) K/mm3 Eos # (Auto) (0.04-0.36) K/mm3 Baso # (Auto) (0.01-0.08) K/mm3 Sodium 138 (136-145) mEq/L Potassium 3.8 (3.5-5.1) mEq/L Chloride 103 (98-107) mEq/L Carbon Dioxide 23 (21-32) mEq/L Anion Gap 15.8 H (5-15) BUN 6 L (7-18) mg/dL Creatinine 0.7 (0.55-1.02) mg/dL Est Cr Clr Drug Dosing 105.01 mL/min Estimated GFR (MDRD) > 60 (>60) mL/min BUN/Creatinine Ratio 8.6 L (14-18) Glucose 267 H (74-106) mg/dL POC Glucose 262 H 272 H (70-105) mg/dL Calcium 8.4 L (8.5-10.1) mg/dL Phosphorus 2.3 L (2.6-4.7) mg/dL 08/26/19 Range/Units 11:50 WBC (3.98-10.04) K/mm3 RBC (3.98-5.22) M/mm3 Hgb (11.2-15.7) gm/dl Hct (34.1-44.9) % MCV (79.4-94.8) fl MCH (25.6-32.2) pg MCHC (32.2-35.5) g/dl RDW Std Deviation (36.4-46.3) fL Plt Count (182-369) K/mm3 MPV (9.4-12.3) fl Neut % (Auto) (34.0-71.1) % Lymph % (Auto) (19.3-51.7) % [place] % (Auto) (4.7-12.5) % Eos % (Auto) (0.7-5.8) Baso % (Auto) (0.1-1.2) % Neut # (Auto) (1.56-6.13) K/mm3 Lymph # (Auto) (1.18-3.74) K/mm3 [place] # (Auto) (0.24-0.36) K/mm3 Eos # (Auto) (0.04-0.36) K/mm3 Baso # (Auto) (0.01-0.08) K/mm3 Sodium (136-145) mEq/L Potassium (3.5-5.1) mEq/L Chloride (98-107) mEq/L Carbon Dioxide (21-32) mEq/L Anion Gap (5-15) BUN (7-18) mg/dL Creatinine (0.55-1.02) mg/dL Est Cr Clr Drug Dosing mL/min Estimated GFR (MDRD) (>60) mL/min BUN/Creatinine Ratio (14-18) Glucose (74-106) mg/dL POC Glucose 201 H (70-105) mg/dL Calcium (8.5-10.1) mg/dL Phosphorus (2.6-4.7) mg/dL Med Orders - Current: Current Medications Acetaminophen (Tylenol) 650 mg PO Q4H PRN PRN Reason: Pain (Mild 1-3)/fever Albuterol/Ipratropium (Duoneb 3.0-0.5 Mg/3 Ml) 3 ml NEB Q4H PRN PRN Reason: Shortness Of Breath/wheezing Dextrose/Water (Dextrose 50% In Water) 50 ml IVPUSH ASDIRECTED PRN PRN Reason: Hypoglycemia Last Admin: 08/24/19 08:25 Dose: 50 ml Hydralazine HCl (Apresoline) 20 mg IVPUSH Q4H PRN PRN Reason: Hypertension Last Admin: 08/25/19 21:09 Dose: 20 mg Hydromorphone HCl (Dilaudid) 1 mg IVPUSH Q4H PRN PRN Reason: Pain Last Admin: 08/26/19 11:54 Dose: 1 mg Insulin Human Regular 100 unit (/ Sodium Chloride) 100 mls @ 6 mls/hr IV TITRATE TONIO; Protocol Last Titration: 08/24/19 14:20 Dose: 0 unit/hr, 0 mls/hr Ibuprofen (Motrin) 600 mg PO Q6H PRN PRN Reason: Pain Insulin Human Lispro (Humalog) 0 unit SUBCUT QIDACANDBED [facility]; Protocol Last Admin: 08/26/19 12:06 Dose: 4 units Ketorolac Tromethamine (Toradol) 15 mg IVPUSH Q6H PRN PRN Reason: Pain (moderate 4-6) Stop: 08/27/19 04:01 Last Admin: 08/26/19 00:07 Dose: 15 mg Lisinopril (Prinivil) 5 mg PO DAILY [facility] Last Admin: 08/26/19 13:08 Dose: 5 mg Metoprolol Tartrate (Lopressor) 5 mg IVPUSH Q4H PRN PRN Reason: Tachycardia Last Admin: 08/25/19 21:57 Dose: 5 mg Miscellaneous Information (Remove Patch) 1 ea TRDERM DAILY [facility] Last Admin: 08/26/19 12:03 Dose: 1 ea Nicotine (Habitrol) 21 mg TRDERM DAILY [facility] Last Admin: 08/26/19 12:01 Dose: 21 mg Ondansetron HCl (Zofran) 4 mg IV Q6H PRN PRN Reason: Nausea/Vomiting Last Admin: 08/26/19 11:51 Dose: 4 mg Pantoprazole Sodium (Protonix Iv) 40 mg IVPUSH Q12H [facility] Last Admin: 08/26/19 08:30 Dose: 40 mg Sodium Chloride (Saline Flush) 10 ml FLUSH ASDIRECTED PRN PRN Reason: Keep Vein Open Last Admin: 08/22/19 20:34 Dose: 10 ml Temazepam (Restoril) 15 mg PO BEDTIME PRN PRN Reason: Sleep Last Admin: 08/24/19 21:16 Dose: 15 mg Discontinued Medications Hydrocodone Bitart/Acetaminophen (Percy 325-5 Mg) 1 tab PO Q4H PRN PRN Reason: Pain (moderate 4-6) Hydromorphone HCl (Dilaudid) 0.25 mg IVPUSH Q2H PRN PRN Reason: Pain (severe 7-10) Sodium Chloride (Normal Saline) 1,000 mls @ 999 mls/hr IV ONETIME ONE Stop: 08/22/19 19:03 Last Admin: 08/22/19 20:34 Dose: Not Given Sodium Chloride (Normal Saline) 1,000 mls @ 999 mls/hr IV ONETIME ONE Stop: 08/22/19 20:37 Last Admin: 08/22/19 20:34 Dose: 999 mls/hr Lactated Ringer's (Ringers, Lactated) 1,000 mls @ 999 mls/hr IV .BOLUS ONE Stop: 08/22/19 21:23 Last Admin: 08/22/19 21:48 Dose: 999 mls/hr Lactated Ringer's (Ringers, Lactated) 1,000 mls @ 999 mls/hr IV .BOLUS ONE Stop: 08/22/19 23:02 Last Admin: 08/23/19 00:09 Dose: 999 mls/hr Insulin Human Regular 100 unit (/ Sodium Chloride) 100 mls @ 381.01 mls/hr IV TITRATE TONIO; Protocol Lactated Ringer's (Ringers, Lactated) 1,000 mls @ 999 mls/hr IV ONETIME ONE Stop: 08/23/19 00:33 Last Admin: 08/23/19 00:32 Dose: Not Given Sodium Bicarbonate 150 meq/ (Dextrose/Water) 1,150 mls @ 100 mls/hr IV ONETIME ONE Stop: 08/23/19 11:04 Last Admin: 08/23/19 00:57 Dose: 100 mls/hr Dextrose/Water (Dextrose 5% In Water) 1,000 mls @ 150 mls/hr IV ASDIRECTED TONIO Last Admin: 08/23/19 07:13 Dose: 150 mls/hr Dextrose/Sodium Chloride (Dextrose 5%-Normal Saline) 1,000 mls @ 100 mls/hr IV ASDIRECTED TONIO Last Infusion: 08/24/19 14:20 Dose: 50 mls/hr Magnesium Sulfate 4 gm/ Premix 50 mls @ 12.5 mls/hr IV ONETIME ONE Stop: 08/24/19 11:29 Last Admin: 08/24/19 08:34 Dose: 12.5 mls/hr Dextrose/Sodium Chloride (Dextrose 5%-Normal Saline) 1,000 mls @ 50 mls/hr IV ASDIRECTED TONIO Sodium Chloride (Normal Saline) 1,000 mls @ 125 mls/hr IV ASDIRECTED TONIO Last Admin: 08/26/19 05:50 Dose: 125 mls/hr Insulin Glargine (Lantus) 20 unit SUBCUT NOW STA Stop: 08/23/19 23:09 Last Admin: 08/23/19 23:15 Dose: 20 unit Insulin Human Regular (Humulin R) 5 unit SUBCUT BIDAC TONIO Last Admin: 08/22/19 19:45 Dose: 5 units Insulin Human Regular (Humulin R) Confirm Administered Dose 300 unit .ROUTE .STK -MED ONE Stop: 08/22/19 19:43 Last Admin: 08/22/19 20:23 Dose: Not Given Ketorolac Tromethamine (Toradol) 15 mg IVPUSH ONETIME ONE Stop: 08/22/19 21:47 Last Admin: 08/22/19 21:54 Dose: 15 mg Ketorolac Tromethamine (Toradol) 30 mg IV Q6H PRN PRN Reason: Pain (moderate 4-6) Stop: 08/27/19 04:01 Metoclopramide HCl (Reglan) 7.5 mg IVPUSH ONETIME ONE Stop: 08/22/19 18:04 Last Admin: 08/22/19 20:25 Dose: 7.5 mg Metoclopramide HCl (Reglan) 10 mg IVPUSH Q6H PRN PRN Reason: Nausea/Vomiting Last Admin: 08/24/19 01:57 Dose: 10 mg Miscellaneous Information (Remove Patch) 0 ea TRDERM ONETIME ONE Stop: 08/26/19 13:01 Last Admin: 08/26/19 13:09 Dose: 1 ea Ondansetron HCl (Zofran) 4 mg IVPUSH ONETIME ONE Stop: 08/22/19 21:51 Last Admin: 08/22/19 21:54 Dose: 4 mg Ondansetron HCl (Zofran) Confirm Administered Dose 4 mg .ROUTE .STK-MED ONE Stop: 08/22/19 21:54 Last Admin: 08/22/19 22:02 Dose: Not Given Pantoprazole Sodium (Protonix Iv) 20 mg IVPUSH ONETIME ONE Stop: 08/22/19 22:01 Last Admin: 08/22/19 23:23 Dose: 20 mg Pantoprazole Sodium (Protonix) 40 mg PO BID TONIO Last Admin: 08/23/19 20:01 Dose: 40 mg Potassium Chloride (Klor-Con 10) 60 meq PO ONETIME ONE Stop: 08/22/19 23:34 Last Admin: 08/22/19 23:50 Dose: 60 meq Potassium Chloride (Klor-Con 10) 60 meq PO ONETIME ONE Stop: 08/23/19 08:01 Last Admin: 08/23/19 09:03 Dose: 60 meq Potassium Chloride (Klor-Con M20) 60 meq PO ONETIME ONE Stop: 08/24/19 07:31 Last Admin: 08/24/19 08:32 Dose: 60 meq Potassium Chloride (Klor-Con M20) 60 meq PO ONETIME ONE Stop: 08/25/19 10:01 Last Admin: 08/25/19 13:06 Dose: 60 meq Scopolamine (Transderm-Scop) 1.5 mg TRDERM ONETIME ONE Stop: 08/23/19 13:01 Last Admin: 08/23/19 13:25 Dose: 1.5 mg Sodium Bicarbonate (Sodium Bicarbonate 8.4%) Confirm Administered Dose 100 meq .ROUTE .STK-MED ONE Stop: 08/23/19 00:40 Last Admin: 08/23/19 01:13 Dose: Not Given Sodium Chloride (Normal Saline) 10 ml IV ASDIRECTED PRN PRN Reason: Other Last Admin: 08/22/19 20:34 Dose: 10 ml Sodium Phosphate (Neutra-Phos) 250 mg PO ONETIME ONE Stop: 08/25/19 12:16 Last Admin: 08/25/19 13:07 Dose: 250 mg
[2019-08-27] MEDS ORDERED: Ibuprofen 600 MG Tab PO PRN (10:00)
== END 2019-08-26 17:00 | disposition home or self-care (01) | DRG 638 ==
LOC: JD.ED 17:29 → JD.ICU 22:03 → JD.MS 08-26 13:51
PROVIDERS: ADMIT Family Medicine; ATTEND Family Medicine
DX: E10.10 Type 1 diabetes mellitus with ketoacidosis without coma (principal); N17.9 Acute kidney failure, unspecified; G43.A0 Cyclical vomiting, in migraine, not intractable; R06.02 Shortness of breath; R53.1 Weakness; E10.43 Type 1 diabetes mellitus with diabetic autonomic (poly)neuropathy; I10 Essential (primary) hypertension; K21.9 Gastro-esophageal reflux disease without esophagitis; G43.909 Migraine, unspecified, not intractable, without status migrainosus; F17.200 Nicotine dependence, unspecified, uncomplicated; Z86.711 Personal history of pulmonary embolism; Z86.14 Personal history of Methicillin resistant Staphylococcus aureus infection; G40.909 Epilepsy, unspecified, not intractable, without status epilepticus; F41.9 Anxiety disorder, unspecified; F32.9 Major depressive disorder, single episode, unspecified; M19.91 Primary osteoarthritis, unspecified site; G89.29 Other chronic pain; F17.210 Nicotine dependence, cigarettes, uncomplicated; F12.10 Cannabis abuse, uncomplicated; E87.6 Hypokalemia; E83.42 Hypomagnesemia; K31.84 Gastroparesis; Z79.4 Long term (current) use of insulin; Z79.899 Other long term (current) drug therapy; Z88.8 Allergy status to other drugs, medicaments and biological substances; Z91.040 Latex allergy status
CPT/HCPCS: 36415; 36600; 71045; 80053; 82009; 82043; 82803; 82947; 83036; 83690; 83735; 83930; 84703; 85007; 85027; 86140; 96361; 96372; 96374; 96375; 99285; J1885; J2405; J2765; J7040; J7120; 74018; 74018-26; 78264; 78264-26; 80048; 80061; 80306; 81001; 82962; 84100; 85025; 99284; A9270-GY; A9541; C9113; J0360; J1170; J1815-GY; J3475; J3490; J7030; J7042; J7060

== ENCOUNTER 2019-12-11 12:38 | Emergency (ER) | payer MEDICAID ==
[2019-12-11] MEDS ORDERED: HYDROmorphone 0.5 MG/0.5 ML Syringe IVPUSH ONE ×2 (13:12→15:12)
[2019-12-11] MEDS ORDERED: Sodium Chloride 0.9% 10 ML Syringe FLUSH PRN (13:12)
[2019-12-11] MEDS ORDERED: Promethazine 25 MG in Sodium Chloride 0.9% 50 ML IV ONE (13:13)
[2019-12-11] MEDS ORDERED: Sodium Chloride 0.9% 1,000 ML IV ONE ×2 (13:14→14:28)
--- NOTE | 2019-12-11 13:27 | EDM.PDOC ---
ED HPI GENERAL MEDICAL PROBLEM - General Chief Complaint: Gastrointestinal Problem Stated Complaint: VOMITING BLOOD Time Seen by Provider: 12/11/19 12:58 Source of Information: Reports: Patient, RN Notes Reviewed History Limitations: Reports: No Limitations - History of Present Illness INITIAL COMMENTS - FREE TEXT/NARRATIVE: Patient is a 34-year-old female who presents to the ED for the evaluation of vomiting blood. She notes she has had increased abdominal pain, and vomiting for the past 2 days. She notes she has a history of gastroparesis. She notes that she has been having some flecks of blood come up with her vomit for the past 2 days as well. She states she has a history of diabetes type 1, she takes insulin, her last dose was 2 units of NovoLog this morning, and 24 of Tresiba last night she did not take her sugars this morning. She states she is had hot and cold flashes, but is afebrile at time of triage. She does not have any chest pain or shortness of breath. She states that she is also been having some loose stools, but states that is fairly normal for her, and they have not changed in nature. Patient notes that her last real meal was 2 days ago before the abdominal pain and vomiting started. She states over the last few days she is just been trying to take in clear fluids for management. Patient's primary care provider is Cherri Canseco. She notes that she has Zofran and Phenergan at home for nausea relief, her last dose of Phenergan was this morning, and she is subsequently out of Phenergan after this last dose. Abdominal Pain Score (Numeric/FACES): 9 - Related Data Allergies Allergy/AdvReac Type Severity Reaction Status Date / Time latex Allergy Hives Verified 12/11/19 12:47 tramadol Allergy Hives Verified 12/11/19 12:47 Home Meds: Home Meds Insulin Aspart [Novolog Flexpen] See Protocol SUBCNJ TIDMEALS 01/05/18 [History] Insulin Degludec [Tresiba] 27 unit SQ DAILY 12/18/18 [History] Buprenorphine HCl/Naloxone HCl [Suboxone 4 mg-1 mg Sl Film] 8 mg PO BID [History] Ondansetron [Zofran ODT] 4 mg PO Q6H PRN #20 tab.dis 06/27/19 [Rx] Citalopram Hydrobromide [Celexa] 20 mg PO DAILY 07/30/19 [History] Pantoprazole [ProTONIX] 20 mg PO DAILY 07/30/19 [History] Insulin Lispro [HumaLOG] 0 unit SUBCUT QIDACANDBED vial 08/26/19 [Rx] Promethazine [Phenergan] 25 mg PO Q4H PRN #8 tab 10/18/19 [Rx] Promethazine [Phenergan] 25 mg PO Q4H PRN #20 tab 12/11/19 [Rx] Past Medical History HEENT History: Reports: Other (See Below) Other HEENT History: dysphagia Cardiovascular History: Reports: Hypertension Respiratory History: Reports: PE Gastrointestinal History: Reports: Chronic Diarrhea, GERD, Irritable Bowel Syndrome Other Gastrointestinal History: diarrhea, nausea, LLQ pain 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 History: Reports: Acute Renal Failure SHEET MET[employer] INSULATOR History: Reports: Endometriosis, Other SHEET METAL INSULATOR History: amenorrhea Musculoskeletal History: Reports: Arthritis, Back Pain, Chronic Other Musculoskeletal History: chronic pain Neurological History: Reports: Headaches, Chronic, Migraines, Seizure Other Neuro History: Diabetic seizure Psychiatric History: Reports: Anxiety, Depression Other Psychiatric History: drug use history Endocrine/Metabolic History: Reports: Diabetes, Type I, Hypokalemia Hematologic History: Reports: Blood Transfusion(s) Other Hematologic History: blood clotting disorder, DVT Dermatologic History: Reports: Eczema, Psoriasis - Infectious Disease History Infectious Disease History: Reports: MRSA - Past Surgical History GI Surgical History: Reports: Cholecystectomy Other GI Surgeries/Procedures: ileostomy and closure, small bowel resection Social & Family History - Family History Family Medical History: Noncontributory - Tobacco Use Smoking Status *Q: Current Every Day Smoker Years of Tobacco use: 15 Packs/Tins Daily: 1 - Caffeine Use Caffeine Use: Reports: Soda Other Caffeine Use: drinks mellow yellow daily about 3 cans - Recreational Drug Use Recreational Drug Use: Yes Drug Use in Last 12 Months: Yes Recreational Drug Type: Reports: Marijuana/Hashish Recreational Drug Route: Reports: Inhaled, Intravenous (used to do IV drugs, not taking currently) - Living Situation & Occupation Living situation: Reports: Single, with Family Occupation: Unemployed ED ROS GENERAL - Review of Systems Review Of Systems: See Below Constitutional: Denies: Fever, Chills Respiratory: Denies: Shortness of Breath, Cough Cardiovascular: Denies: Chest Pain GI/Abdominal: Reports: Abdominal Pain (generalized), Diarrhea (loose stools), Hematemesis (small amounts of blood noted in emesis), Nausea, Vomiting : Denies: Dysuria Skin: Reports: Pallor (generalized) Neurological: Reports: Headache (mild tension type) ED EXAM, GI/ABD - Physical Exam Exam: See Below Exam Limited By: No Limitations General Appearance: Alert, WD/WN, No Apparent Distress (pt does appear to be in moderate amount of pain, she is having difficulty finding a comfortable position. Her breath has a fruity odor to it.) Eyes: Bilateral: Normal Appearance, EOMI Ears: Normal External Exam Nose: Normal Inspection Throat/Mouth: Normal Inspection, Normal Lips, Normal Teeth, Normal Gums, Normal Oropharynx (mildly dry oral mucosa), Normal Voice, No Airway Compromise Head: Atraumatic, Normocephalic Neck: Normal Inspection Respiratory/Chest: No Respiratory Distress, Lungs Clear, Normal Breath Sounds, No Accessory Muscle Use, Chest Non-Tender Cardiovascular: Normal Peripheral Pulses, Regular Rate, Rhythm, No Murmur GI/Abdominal Exam: Soft, No Organomegaly, No Distention, Tender (generalized), Abnormal Bowel Sounds (hypoactive bowel tones) Extremities: Normal Inspection, Normal Capillary Refill Neurological: Alert, Oriented, Normal Cognition, No Motor/Sensory Deficits Psychiatric: Normal Affect, Normal Mood Skin Exam: Warm, Dry, Intact, No Rash, Pallor (generalized) Course - Vital Signs Last Recorded V/S: Last Vital Signs Temp 97.8 F 12/11/19 12:47 Pulse 94 12/11/19 12:47 Resp BP 152/115 H 12/11/19 12:47 Pulse Ox 100 12/11/19 12:47 - Orders/Labs/Meds Orders: Active Orders 24 hr Category Date Time Status Blood Glucose Check, Bedside [RC] ONETIME Care 12/11/19 17:17 Active POC Glucose [Blood Glucose Check, Bedside] [RC] ONETIME Care 12/11/19 13:33 Active POC Glucose [Blood Glucose Check, Bedside] [RC] ONETIME Care 12/11/19 15:20 Active Peripheral IV Care [RC] . DIRECTED Care 12/11/19 13:13 Active Abdomen 1V Flat [CR] Stat Exams 12/11/19 13:12 Taken CULTURE BLOOD [BC] Stat Lab 12/11/19 15:18 Received Sodium Chloride 0.9% [Saline Flush] Med 12/11/19 13:12 Active 10 ml FLUSH ASDIRECTED PRN Blood Culture x2 Reflex Set [OM.PC] Stat Oth 12/11/19 14:23 Ordered Peripheral IV Insertion Adult [OM.PC] Stat Oth 12/11/19 13:11 Ordered Medication Orders Sodium Chloride (Saline Flush) 10 ml FLUSH ASDIRECTED PRN PRN Reason: Keep Vein Open Last Admin: 12/11/19 13:33 Dose: 10 ml Labs: Laboratory Tests 12/11/19 12/11/19 12/11/19 Range/Units 13:20 13:20 13:20 WBC 13.75 H (3.98-10.04) K/mm3 RBC 5.03 (3.98-5.22) M/mm3 Hgb 15.0 (11.2-15.7) gm/dl Hct 43.1 (34.1-44.9) % MCV 85.7 (79.4-94.8) fl MCH 29.8 (25.6-32.2) pg MCHC 34.8 (32.2-35.5) g/dl RDW Std Deviation 38.9 (36.4-46.3) fL Plt Count 221 (182-369) K/mm3 MPV 9.9 (9.4-12.3) fl Neutrophils % (Manual) 87 H (40-60) % Band Neutrophils % 0 (0-10) % Lymphocytes % (Manual) 9 L (20-40) % Atypical Lymphs % 0 % Monocytes % (Manual) 3 (2-10) % Eosinophils % (Manual) 1 (0.7-5.8) % Basophils % (Manual) 0 L (0.1-1.2) Platelet Estimate Adequate RBC Morph Comment Normal Puncture Site ABG pH (7.35-7.45) ABG pCO2 (35.0-45.0) mmHg ABG pO2 (80.0-100.0) mmHg ABG HCO3 (22.0-26.0) meq/L ABG O2 Saturation (96.0-97.0) % ABG Base Excess (-2-2.0) A-a Gradient mmHg O2 Delivery Device Oxygen Flow Rate FiO2 (21.00-100.00) % Sodium 144 (136-145) mEq/L Potassium 3.4 L (3.5-5.1) mEq/L Chloride 98 (98-107) mEq/L Carbon Dioxide 31 (21-32) mEq/L Anion Gap 18.4 H (5-15) BUN 19 H (7-18) mg/dL Creatinine 1.4 H (0.55-1.02) mg/dL Est Cr Clr Drug Dosing 52.50 mL/min Estimated GFR (MDRD) 43 (>60) mL/min BUN/Creatinine Ratio 13.6 L (14-18) Glucose 360 H (74-106) mg/dL POC Glucose (70-105) mg/dL Serum Osmolality (280-300) mosm/kg Lactic Acid (0.4-2.0) mmol/L Calcium 9.7 (8.5-10.1) mg/dL Phosphorus (2.6-4.7) mg/dL Total Bilirubin 0.7 (0.2-1.0) mg/dL AST 15 (15-37) U/L ALT 28 (14-59) U/L Alkaline Phosphatase 121 H (46-116) U/L Total Protein 7.7 (6.4-8.2) g/dl Albumin 4.2 (3.4-5.0) g/dl Globulin 3.5 gm/dL Albumin/Globulin Ratio 1.2 (1-2) Urine Color (Yellow) Urine Appearance (Clear) Urine pH (5.0-8.0) Ur Specific [place] (1.005-1.030) Urine Protein (Negative) Urine Glucose (UA) (Negative) Urine Ketones (Negative) Urine Occult Blood (Negative) Urine Nitrite (Negative) Urine Bilirubin (Negative) Urine Urobilinogen (0.2-1.0) Ur Leukocyte Esterase (Negative) Urine RBC (0-5) /hpf Urine WBC (0-5) /hpf Ur Squamous Epith Cells (0-5) /hpf Urine Bacteria (FEW) /hpf Urine Mucus (FEW) /hpf Urine Opiates Screen (DSOVXH=622) Ur Buprenorphine Scrn (CUTOFF=10) Ur Oxycodone Screen (TPB9WL=357) Urine Methadone Screen (CAQYRD=624) Ur Propoxyphene Screen (GHYIPF=760) Ur Barbiturates Screen (BNPQYA=915) Ur Tricyclics Screen (DYTDOL=874) Ur Phencyclidine Scrn (CUTOFF=25) Ur Amphetamine Screen (KUGLVK=812) U Methamphetamines Scrn (NYBUIX=565) U Benzodiazepines Scrn (EKFPSQ=721) U Cocaine Metab Screen (IFBACB=821) U Marijuana (THC) Screen (CUTOFF=50) Ketones 4.2 (0.0-0.3) mM Blood Type Gel Antibody Screen 12/11/19 12/11/19 12/11/19 Range/Units 13:20 13:20 13:38 WBC (3.98-10.04) K/mm3 RBC (3.98-5.22) M/mm3 Hgb (11.2-15.7) gm/dl Hct (34.1-44.9) % MCV (79.4-94.8) fl MCH (25.6-32.2) pg MCHC (32.2-35.5) g/dl RDW Std Deviation (36.4-46.3) fL Plt Count (182-369) K/mm3 MPV (9.4-12.3) fl Neutrophils % (Manual) (40-60) % Band Neutrophils % (0-10) % Lymphocytes % (Manual) (20-40) % Atypical Lymphs % % Monocytes % (Manual) (2-10) % Eosinophils % (Manual) (0.7-5.8) % Basophils % (Manual) (0.1-1.2) Platelet Estimate RBC Morph Comment Puncture Site ABG pH (7.35-7.45) ABG pCO2 (35.0-45.0) mmHg ABG pO2 (80.0-100.0) mmHg ABG HCO3 (22.0-26.0) meq/L ABG O2 Saturation (96.0-97.0) % ABG Base Excess (-2-2.0) A-a Gradient mmHg O2 Delivery Device Oxygen Flow Rate FiO2 (21.00-100.00) % Sodium (136-145) mEq/L Potassium (3.5-5.1) mEq/L Chloride (98-107) mEq/L Carbon Dioxide (21-32) mEq/L Anion Gap (5-15) BUN (7-18) mg/dL Creatinine (0.55-1.02) mg/dL Est Cr Clr Drug Dosing mL/min Estimated GFR (MDRD) (>60) mL/min BUN/Creatinine Ratio (14-18) Glucose (74-106) mg/dL POC Glucose (70-105) mg/dL Serum Osmolality 317 H (280-300) mosm/kg Lactic Acid 2.3 H* (0.4-2.0) mmol/L Calcium (8.5-10.1) mg/dL Phosphorus 3.8 (2.6-4.7) mg/dL Total Bilirubin (0.2-1.0) mg/dL AST (15-37) U/L ALT (14-59) U/L Alkaline Phosphatase (46-116) U/L Total Protein (6.4-8.2) g/dl Albumin (3.4-5.0) g/dl Globulin gm/dL Albumin/Globulin Ratio (1-2) Urine Color (Yellow) Urine Appearance (Clear) Urine pH (5.0-8.0) Ur Specific [place] (1.005-1.030) Urine Protein (Negative) Urine Glucose (UA) (Negative) Urine Ketones (Negative) Urine Occult Blood (Negative) Urine Nitrite (Negative) Urine Bilirubin (Negative) Urine Urobilinogen (0.2-1.0) Ur Leukocyte Esterase (Negative) Urine RBC (0-5) /hpf Urine WBC (0-5) /hpf Ur Squamous Epith Cells (0-5) /hpf Urine Bacteria (FEW) /hpf Urine Mucus (FEW) /hpf Urine Opiates Screen (EIQBBH=250) Ur Buprenorphine Scrn (CUTOFF=10) Ur Oxycodone Screen (JSZ1GD=209) Urine Methadone Screen (TERVLH=012) Ur Propoxyphene Screen (RLBXKY=209) Ur Barbiturates Screen (JMYBNG=539) Ur Tricyclics Screen (EUTAEP=905) Ur Phencyclidine Scrn (CUTOFF=25) Ur Amphetamine Screen (HYSQDT=184) U Methamphetamines Scrn (UGCNZW=578) U Benzodiazepines Scrn (ILEGSZ=185) U Cocaine Metab Screen (YQPKUG=554) U Marijuana (THC) Screen (CUTOFF=50) Ketones (0.0-0.3) mM Blood Type O POSITIVE Gel Antibody Screen Negative 12/11/19 12/11/19 12/11/19 Range/Units 13:39 13:40 15:18 WBC (3.98-10.04) K/mm3 RBC (3.98-5.22) M/mm3 Hgb (11.2-15.7) gm/dl Hct (34.1-44.9) % MCV (79.4-94.8) fl MCH (25.6-32.2) pg MCHC (32.2-35.5) g/dl RDW Std Deviation (36.4-46.3) fL Plt Count (182-369) K/mm3 MPV (9.4-12.3) fl Neutrophils % (Manual) (40-60) % Band Neutrophils % (0-10) % Lymphocytes % (Manual) (20-40) % Atypical Lymphs % % Monocytes % (Manual) (2-10) % Eosinophils % (Manual) (0.7-5.8) % Basophils % (Manual) (0.1-1.2) Platelet Estimate RBC Morph Comment Puncture Site Lt radial ABG pH 7.46 H (7.35-7.45) ABG pCO2 38.0 (35.0-45.0) mmHg ABG pO2 73.0 L (80.0-100.0) mmHg ABG HCO3 26.4 H (22.0-26.0) meq/L ABG O2 Saturation 94.7 L (96.0-97.0) % ABG Base Excess 3.0 H (-2-2.0) A-a Gradient 29 mmHg O2 Delivery Device Room air Oxygen Flow Rate 0.0 FiO2 21.00 (21.00-100.00) % Sodium (136-145) mEq/L Potassium (3.5-5.1) mEq/L Chloride (98-107) mEq/L Carbon Dioxide (21-32) mEq/L Anion Gap (5-15) BUN (7-18) mg/dL Creatinine (0.55-1.02) mg/dL Est Cr Clr Drug Dosing mL/min Estimated GFR (MDRD) (>60) mL/min BUN/Creatinine Ratio (14-18) Glucose (74-106) mg/dL POC Glucose 344 H (70-105) mg/dL Serum Osmolality (280-300) mosm/kg Lactic Acid 1.3 (0.4-2.0) mmol/L Calcium (8.5-10.1) mg/dL Phosphorus (2.6-4.7) mg/dL Total Bilirubin (0.2-1.0) mg/dL AST (15-37) U/L ALT (14-59) U/L Alkaline Phosphatase (46-116) U/L Total Protein (6.4-8.2) g/dl Albumin (3.4-5.0) g/dl Globulin gm/dL Albumin/Globulin Ratio (1-2) Urine Color (Yellow) Urine Appearance (Clear) Urine pH (5.0-8.0) Ur Specific [place] (1.005-1.030) Urine Protein (Negative) Urine Glucose (UA) (Negative) Urine Ketones (Negative) Urine Occult Blood (Negative) Urine Nitrite (Negative) Urine Bilirubin (Negative) Urine Urobilinogen (0.2-1.0) Ur Leukocyte Esterase (Negative) Urine RBC (0-5) /hpf Urine WBC (0-5) /hpf Ur Squamous Epith Cells (0-5) /hpf Urine Bacteria (FEW) /hpf Urine Mucus (FEW) /hpf Urine Opiates Screen (ATRBDN=978) Ur Buprenorphine Scrn (CUTOFF=10) Ur Oxycodone Screen (VUE2FW=558) Urine Methadone Screen (QCVTEO=861) Ur Propoxyphene Screen (EBCWPY=778) Ur Barbiturates Screen (NNSGNP=753) Ur Tricyclics Screen (CYJQHK=868) Ur Phencyclidine Scrn (CUTOFF=25) Ur Amphetamine Screen (FGYKNL=829) U Methamphetamines Scrn (QDTYJC=714) U Benzodiazepines Scrn (APTJUW=845) U Cocaine Metab Screen (KFMPWF=302) U Marijuana (THC) Screen (CUTOFF=50) Ketones (0.0-0.3) mM Blood Type Gel Antibody Screen 12/11/19 12/11/19 12/11/19 Range/Units 15:40 15:40 15:52 WBC (3.98-10.04) K/mm3 RBC (3.98-5.22) M/mm3 Hgb (11.2-15.7) gm/dl Hct (34.1-44.9) % MCV (79.4-94.8) fl MCH (25.6-32.2) pg MCHC (32.2-35.5) g/dl RDW Std Deviation (36.4-46.3) fL Plt Count (182-369) K/mm3 MPV (9.4-12.3) fl Neutrophils % (Manual) (40-60) % Band Neutrophils % (0-10) % Lymphocytes % (Manual) (20-40) % Atypical Lymphs % % Monocytes % (Manual) (2-10) % Eosinophils % (Manual) (0.7-5.8) % Basophils % (Manual) (0.1-1.2) Platelet Estimate RBC Morph Comment Puncture Site ABG pH (7.35-7.45) ABG pCO2 (35.0-45.0) mmHg ABG pO2 (80.0-100.0) mmHg ABG HCO3 (22.0-26.0) meq/L ABG O2 Saturation (96.0-97.0) % ABG Base Excess (-2-2.0) A-a Gradient mmHg O2 Delivery Device Oxygen Flow Rate FiO2 (21.00-100.00) % Sodium (136-145) mEq/L Potassium (3.5-5.1) mEq/L Chloride (98-107) mEq/L Carbon Dioxide (21-32) mEq/L Anion Gap (5-15) BUN (7-18) mg/dL Creatinine (0.55-1.02) mg/dL Est Cr Clr Drug Dosing mL/min Estimated GFR (MDRD) (>60) mL/min BUN/Creatinine Ratio (14-18) Glucose (74-106) mg/dL POC Glucose 245 H (70-105) mg/dL Serum Osmolality (280-300) mosm/kg Lactic Acid (0.4-2.0) mmol/L Calcium (8.5-10.1) mg/dL Phosphorus (2.6-4.7) mg/dL Total Bilirubin (0.2-1.0) mg/dL AST (15-37) U/L ALT (14-59) U/L Alkaline Phosphatase (46-116) U/L Total Protein (6.4-8.2) g/dl Albumin (3.4-5.0) g/dl Globulin gm/dL Albumin/Globulin Ratio (1-2) Urine Color Yellow (Yellow) Urine Appearance Clear (Clear) Urine pH 6.0 (5.0-8.0) Ur Specific [place] 1.020 (1.005-1.030) Urine Protein 2+ H (Negative) Urine Glucose (UA) 2+ H (Negative) Urine Ketones 3+ H (Negative) Urine Occult Blood 2+ H (Negative) Urine Nitrite Negative (Negative) Urine Bilirubin 1+ H (Negative) Urine Urobilinogen 0.2 (0.2-1.0) Ur Leukocyte Esterase Negative (Negative) Urine RBC 5-10 H (0-5) /hpf Urine WBC 0-5 (0-5) /hpf Ur Squamous Epith Cells 0-5 (0-5) /hpf Urine Bacteria Not seen (FEW) /hpf Urine Mucus Not seen (FEW) /hpf Urine Opiates Screen Negative (SKIZYA=053) Ur Buprenorphine Scrn Presumptive positive (CUTOFF=10) Ur Oxycodone Screen Negative (PJS6HK=682) Urine Methadone Screen Negative (QEYORO=019) Ur Propoxyphene Screen Negative (SMHCWC=777) Ur Barbiturates Screen Negative (VMRMGB=537) Ur Tricyclics Screen Negative (OWOUOQ=250) Ur Phencyclidine Scrn Negative (CUTOFF=25) Ur Amphetamine Screen Negative (QBWTBJ=687) U Methamphetamines Scrn Negative (VFOMSE=549) U Benzodiazepines Scrn Negative (NZOSDL=853) U Cocaine Metab Screen Negative (ZRRNEE=997) U Marijuana (THC) Screen Presumptive positive H (CUTOFF=50) Ketones (0.0-0.3) mM Blood Type Gel Antibody Screen 12/11/19 Range/Units 17:14 WBC (3.98-10.04) K/mm3 RBC (3.98-5.22) M/mm3 Hgb (11.2-15.7) gm/dl Hct (34.1-44.9) % MCV (79.4-94.8) fl MCH (25.6-32.2) pg MCHC (32.2-35.5) g/dl RDW Std Deviation (36.4-46.3) fL Plt Count (182-369) K/mm3 MPV (9.4-12.3) fl Neutrophils % (Manual) (40-60) % Band Neutrophils % (0-10) % Lymphocytes % (Manual) (20-40) % Atypical Lymphs % % Monocytes % (Manual) (2-10) % Eosinophils % (Manual) (0.7-5.8) % Basophils % (Manual) (0.1-1.2) Platelet Estimate RBC Morph Comment Puncture Site ABG pH (7.35-7.45) ABG pCO2 (35.0-45.0) mmHg ABG pO2 (80.0-100.0) mmHg ABG HCO3 (22.0-26.0) meq/L ABG O2 Saturation (96.0-97.0) % ABG Base Excess (-2-2.0) A-a Gradient mmHg O2 Delivery Device Oxygen Flow Rate FiO2 (21.00-100.00) % Sodium (136-145) mEq/L Potassium (3.5-5.1) mEq/L Chloride (98-107) mEq/L Carbon Dioxide (21-32) mEq/L Anion Gap (5-15) BUN (7-18) mg/dL Creatinine (0.55-1.02) mg/dL Est Cr Clr Drug Dosing mL/min Estimated GFR (MDRD) (>60) mL/min BUN/Creatinine Ratio (14-18) Glucose (74-106) mg/dL POC Glucose 211 H (70-105) mg/dL Serum Osmolality (280-300) mosm/kg Lactic Acid (0.4-2.0) mmol/L Calcium (8.5-10.1) mg/dL Phosphorus (2.6-4.7) mg/dL Total Bilirubin (0.2-1.0) mg/dL AST (15-37) U/L ALT (14-59) U/L Alkaline Phosphatase (46-116) U/L Total Protein (6.4-8.2) g/dl Albumin (3.4-5.0) g/dl Globulin gm/dL Albumin/Globulin Ratio (1-2) Urine Color (Yellow) Urine Appearance (Clear) Urine pH (5.0-8.0) Ur Specific [place] (1.005-1.030) Urine Protein (Negative) Urine Glucose (UA) (Negative) Urine Ketones (Negative) Urine Occult Blood (Negative) Urine Nitrite (Negative) Urine Bilirubin (Negative) Urine Urobilinogen (0.2-1.0) Ur Leukocyte Esterase (Negative) Urine RBC (0-5) /hpf Urine WBC (0-5) /hpf Ur Squamous Epith Cells (0-5) /hpf Urine Bacteria (FEW) /hpf Urine Mucus (FEW) /hpf Urine Opiates Screen (PCQVFS=564) Ur Buprenorphine Scrn (CUTOFF=10) Ur Oxycodone Screen (CVG6VY=882) Urine Methadone Screen (QVHKQY=660) Ur Propoxyphene Screen (FQLXAM=439) Ur Barbiturates Screen (PGOTYY=460) Ur Tricyclics Screen (GVHXSO=234) Ur Phencyclidine Scrn (CUTOFF=25) Ur Amphetamine Screen (SNPTZY=722) U Methamphetamines Scrn (BEBZNO=633) U Benzodiazepines Scrn (THGMGR=775) U Cocaine Metab Screen (BZJBQL=922) U Marijuana (THC) Screen (CUTOFF=50) Ketones (0.0-0.3) mM Blood Type Gel Antibody Screen Meds: Medications Generic Name Dose Route Start Last Admin Trade Name Freq PRN Reason Stop Dose Admin Sodium Chloride 10 ml 12/11/19 13:12 12/11/19 13:33 Saline Flush FLUSH 10 ml ASDIRECTED PRN Administration Keep Vein Open Discontinued Medications Generic Name Dose Route Start Last Admin Trade Name Freq PRN Reason Stop Dose Admin Hydromorphone HCl 0.5 mg 12/11/19 13:12 12/11/19 13:27 Dilaudid IVPUSH 12/11/19 13:13 0.5 mg ONETIME ONE Administration Hydromorphone HCl 0.5 mg 12/11/19 15:12 12/11/19 15:41 Dilaudid IVPUSH 12/11/19 15:13 0.5 mg ONETIME ONE Administration Promethazine HCl 25 mg/ Sodium 51 mls @ 100 mls/hr 12/11/19 13:13 12/11/19 13 :29 Chloride IV 12/11/19 13:43 100 mls/hr ONETIME ONE Administration Sodium Chloride 1,000 mls @ 999 mls/hr 12/11/19 13:14 12/11/19 14:10 Normal Saline IV 12/11/19 14:14 999 mls/hr ONETIME ONE Infusion Sodium Chloride 1,000 mls @ 999 mls/hr 12/11/19 14:28 12/11/19 15:02 Normal Saline IV 12/11/19 15:28 999 mls/hr ONETIME ONE Administration Lactated Ringer's 1,000 mls @ 999 mls/hr 12/11/19 15:28 12/11/19 16:19 Ringers, Lactated IV 12/11/19 16:28 999 mls/hr .BOLUS ONE Administration Insulin Human Regular 2 unit 12/11/19 15:54 12/11/19 16:20 Humulin R SUBCUT 12/11/19 15:55 2 unit ONETIME ONE Administration Ondansetron HCl 4 mg 12/11/19 15:15 12/11/19 15:41 Zofran IVPUSH 12/11/19 15:16 4 mg ONETIME ONE Administration - Re-Assessments/Exams Free Text/Narrative Re-Assessment/Exam: 12/11/19 13:34 Patient presents to the ED for evaluation of vomiting for the past 2 days. Due to her being a type I diabetic, [id number] glucose to be taken at bedside, she will have an IV placed with 25 of Phenergan, 0.5 mg of Dilaudid for initial management of pain and nausea control. CBC, CMP, lactic acid, phosphorus, serum osmolality, serum ketones, ABG will be obtained for initial evaluation she will be given some IV fluids as well for initial management of her condition. Patient does have a mildly fruity odor to her breath. 12/11/19 14:26 Labs have been resulted, CBC shows a mildly elevated white count 13.75 with 87% neutrophils and no bands, ABG demonstrates a pH of 7.46, CO2 38 and bicarb of 26.4. Potassium mildly low at 3.4, anion gap elevated at 18.4, creatinine at 1.4 with a 43 GFR, she is known to have renal insufficiency. Glucose is 360, osmolality is 317, lactic acid was found to be 2.3 as well. Due to lab values she does meet sepsis protocol however I do not believe she is septic, the lactic acid is due to her being a diabetic and puking and vomiting for the past few days. She will get another liter or 2 of fluid for management, will check a UA as well to make sure there is no infection, patient was rechecked at bedside and states she is feeling better and is resting comfortably at this time. 12/11/19 15:44 Patient's ketones are back, and are elevated at 4.2. Also was notified by lab, that they were only able to obtain one blood culture, this is fine at this time. Patient's KUB shows quite a bit of gas within her colon, official radiology read is pending. I did review the x-rays with Dr. Dimas, he did not appreciate any acute focal abnormalities as well. Patient states that she was feeling nauseous and having a little more pain. I did order 0.5mg Dilaudid and 4mg Zofran for further management. 12/11/19 15:55 Patient bedside glucose was done, and demonstrates a level of 245, this was discussed with Dr. Dimas, patient is on sliding scale insulin, and appears she takes 2 units at a blood sugar this level. I did order this at this time. 12/11/19 17:26 Zach lactic acid is 1.3 at this time. Patient will be discharged home with general recommendations. Departure - Departure Time of Disposition: 17:10 Disposition: Home, Self-Care 01 Condition: Fair Clinical Impression: Elevated blood ketone body level, Hyperglycemia due to type 1 diabetes mellitus Nausea and vomiting Qualifiers: Vomiting type: unspecified Vomiting Intractability: non-intractable Qualified Code(s): R11.2 - Nausea with vomiting, unspecified - Discharge Information *PRESCRIPTION DRUG MONITORING PROGRAM REVIEWED*: No *COPY OF PRESCRIPTION DRUG MONITORING REPORT IN PATIENT TANNER: No Prescriptions: Promethazine [Phenergan] 25 mg PO Q4H PRN #20 tab PRN Reason: Nausea Instructions: Nausea and Vomiting, Adult, [id number] Referrals: Fanta Canseco PA-C [Primary Care Provider] - Forms: ED Department Discharge Additional Instructions: You were evaluated in the ER today regarding your nausea and vomiting. Your blood sugar was high, you were given 3 L of fluid for management of this, your blood ketone level was also high, this will also respond to the 3 L of fluid. You were given 2 units of insulin for further blood sugar control in the ER. Recommend you keep up with your sliding scale insulin at home. You were given a prescription for Phenergan, as you state this was a normal home medication for you, please take as directed for further nausea relief. Recommend that you follow-up with your regular care provider sometime next week for reevaluation of your symptoms and make sure that you are getting better as expected. Sepsis Event Note - Evaluation Sepsis Screening Result: No Definite Risk - Focused Exam Vital Signs: Vital Signs Temp Pulse BP Pulse Ox 12/11/19 12:47 97.8 F 94 152/115 H 100 Date Exam was Performed: 12/11/19 Time Exam was Performed: 17:26 - My Orders Last 24 Hours: My Active Orders 12/11/19 13:11 Peripheral IV Insertion Adult [OM.PC] Stat 12/11/19 13:12 Abdomen 1V Flat [CR] Stat Sodium Chloride 0.9% [Saline Flush] 10 ml FLUSH ASDIRECTED PRN 12/11/19 13:13 Peripheral IV Care [RC] . DIRECTED 12/11/19 13:33 POC Glucose [Blood Glucose Check, Bedside] [RC] ONETIME 12/11/19 14:23 Blood Culture x2 Reflex Set [OM.PC] Stat 12/11/19 15:18 CULTURE BLOOD [BC] Stat 12/11/19 15:20 POC Glucose [Blood Glucose Check, Bedside] [RC] ONETIME 12/11/19 17:17 Blood Glucose Check, Bedside [RC] ONETIME - Assessment/Plan Last 24 Hours: My Active Orders 12/11/19 13:11 Peripheral IV Insertion Adult [OM.PC] Stat 12/11/19 13:12 Abdomen 1V Flat [CR] Stat Sodium Chloride 0.9% [Saline Flush] 10 ml FLUSH ASDIRECTED PRN 12/11/19 13:13 Peripheral IV Care [RC] . DIRECTED 12/11/19 13:33 POC Glucose [Blood Glucose Check, Bedside] [RC] ONETIME 12/11/19 14:23 Blood Culture x2 Reflex Set [OM.PC] Stat 12/11/19 15:18 CULTURE BLOOD [BC] Stat 12/11/19 15:20 POC Glucose [Blood Glucose Check, Bedside] [RC] ONETIME 12/11/19 17:17 Blood Glucose Check, Bedside [RC] ONETIME
[2019-12-11] MEDS ORDERED: Ondansetron 4 MG/2 ML SDV IVPUSH ONE (15:15)
[2019-12-11] MEDS ORDERED: Lactated Ringers 1,000 ML IV ONE (15:28)
[2019-12-11] MEDS ORDERED: Insulin Regular, Human 100 Units/ML 3 ML Vial SUBCUT ONE (15:54)
--- NOTE | 2019-12-12 17:48 | CR ---
Abdomen: Supine view of the abdomen was obtained. Comparison: Prior abdominal x-ray of 10/18/19. Bowel gas pattern appears within normal limits. Calcifications are seen within the pelvis which are felt compatible with stable phleboliths. Calcification is noted within the left iliac side of the sacroiliac joint believed to represent bone island. Surgical clips are seen from prior cholecystectomy. No soft tissue abnormality is appreciated. Impression: 1. Findings believed to be incidental as described above. 2. Nothing acute is appreciated on supine abdominal x-ray. Diagnostic code #2 This report was dictated in [place] Standard Time
== END 2019-12-11 18:00 | disposition home or self-care (01) ==
LOC: JD.ED 12:38
DX: E10.65 Type 1 diabetes mellitus with hyperglycemia (principal); E71.32 Disorders of ketone metabolism; R11.2 Nausea with vomiting, unspecified; I10 Essential (primary) hypertension; F17.210 Nicotine dependence, cigarettes, uncomplicated; K21.9 Gastro-esophageal reflux disease without esophagitis; Z86.718 Personal history of other venous thrombosis and embolism; Z86.711 Personal history of pulmonary embolism; Z79.899 Other long term (current) drug therapy; Z90.49 Acquired absence of other specified parts of digestive tract; Z88.5 Allergy status to narcotic agent; Z91.040 Latex allergy status
CPT/HCPCS: 36415; 36600; 74018; 80053; 80306; 81001; 82009; 82803; 82962; 83605; 83930; 84100; 85007; 85027; 86850; 86900; 86901; 87040; 96361; 96365; 96375; 96376; 99285; J1170; J1815; J2405; J2550; J7030; J7050; J7120; 99284

== ENCOUNTER 2020-01-17 17:13 | Inpatient (IN) | payer MEDICAID ==
[2020-01-17] MEDS ORDERED: Ondansetron 4 MG/2 ML SDV IVPUSH ONE (17:54)
[2020-01-17] MEDS ORDERED: Sodium Chloride 0.9% 1,000 ML IV SCH ×2 (18:00→18:30)
--- NOTE | 2020-01-17 18:12 | EDM.PDOC ---
<Kerry Costa - Last Filed: 01/17/20 18:06> ED HPI GENERAL MEDICAL PROBLEM - General Chief Complaint: Gastrointestinal Problem Stated Complaint: VOMITING AND WEAK Time Seen by Provider: 01/17/20 17:53 Source of Information: Reports: Patient History Limitations: Reports: No Limitations - History of Present Illness INITIAL COMMENTS - FREE TEXT/NARRATIVE: Patient is a 34-year-old female with a history of Type 1 Diabetes and Gastroparesis who presents to the ED with complaints of nausea, vomiting, and diarrhea for the past 4-5 days. She reports she has multiple episodes of emesis each day and states she has noticed dark blood in each episode. She has one episode of diarrhea per day and reports that it is dark and tarry. She has had abdominal cramping and burning pain for the past 4-5 days as well. She rates the abdominal pain at a 9/10 at time of exam. She has had a mild headache for the past two days. Has felt a little short of breath occasionally over the past few days and feels her heart racing all the time. She has a history of gastroparesis, which has led to similar episodes of nausea, vomiting, and diarrhea in the past, with the last being a couple months ago she reports. She reports that at home her blood sugars have been 300 or greater. She denies chest pain, fever, and chills. Abdomen Pain Score (Numeric/FACES): 9 - Related Data Allergies Allergy/AdvReac Type Severity Reaction Status Date / Time latex Allergy Hives Verified 01/17/20 22:04 tramadol Allergy Hives Verified 01/17/20 22:04 Home Meds: Home Meds Insulin Aspart [Novolog Flexpen] See Protocol SUBCNJ TIDMEALS 01/05/18 [History] Insulin Degludec [Tresiba] 27 unit SQ DAILY 12/18/18 [History] Buprenorphine HCl/Naloxone HCl [Suboxone 4 mg-1 mg Sl Film] 8 mg PO BID [History] Ondansetron [Zofran ODT] 4 mg PO Q6H PRN #20 tab.dis 06/27/19 [Rx] Citalopram Hydrobromide [Celexa] 20 mg PO DAILY 07/30/19 [History] Pantoprazole [ProTONIX] 20 mg PO DAILY 07/30/19 [History] Insulin Lispro [HumaLOG] 0 unit SUBCUT QIDACANDBED vial 08/26/19 [Rx] Promethazine [Phenergan] 25 mg PO Q4H PRN #8 tab 10/18/19 [Rx] Promethazine [Phenergan] 25 mg PO Q4H PRN #20 tab 12/11/19 [Rx] Past Medical History HEENT History: Reports: Other (See Below) Other HEENT History: dysphagia Cardiovascular History: Reports: Hypertension Respiratory History: Reports: PE Gastrointestinal History: Reports: Chronic Diarrhea, GERD, Irritable Bowel Syndrome Other Gastrointestinal History: diarrhea, nausea, LLQ pain 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 History: Reports: Acute Renal Failure PSYCHOLOGICAL AIDE History: Reports: Endometriosis, Other PSYCHOLOGICAL AIDE History: amenorrhea Musculoskeletal History: Reports: Arthritis, Back Pain, Chronic Other Musculoskeletal History: chronic pain Neurological History: Reports: Headaches, Chronic, Migraines, Seizure Other Neuro History: Diabetic seizure Psychiatric History: Reports: Anxiety, Depression Other Psychiatric History: drug use history Endocrine/Metabolic History: Reports: Diabetes, Type I, Hypokalemia Other Endocrine/Metabolic History: hypokalemia Hematologic History: Reports: Blood Transfusion(s) Other Hematologic History: blood clotting disorder, DVT Other Immunologic History: risk for HIV from IV drug use, MRSA Dermatologic History: Reports: Eczema, Psoriasis - Infectious Disease History Infectious Disease History: Reports: MRSA Other Infectious Disease History: MRSA-2 yrs ago - Past Surgical History GI Surgical History: Reports: Cholecystectomy Other GI Surgeries/Procedures: ileostomy and closure, small bowel resection Social & Family History - Family History Family Medical History: Noncontributory - Tobacco Use Smoking Status *Q: Current Every Day Smoker Years of Tobacco use: 20 Packs/Tins Daily: 1 - Caffeine Use Caffeine Use: Reports: Soda Other Caffeine Use: drinks mellow yellow daily about 3 cans - Recreational Drug Use Recreational Drug Use: Yes Drug Use in Last 12 Months: Yes Recreational Drug Type: Reports: Marijuana/Hashish Recreational Drug Use Frequency: Daily - Living Situation & Occupation Living situation: Reports: Single, with Family Occupation: Unemployed ED ROS GENERAL - Review of Systems Review Of Systems: See Below Constitutional: Reports: Weakness, Fatigue, Decreased Appetite. Denies: Fever, Chills HEENT: Reports: No Symptoms. Denies: Ear Pain, Eye Pain, Sinus Problem, Throat Pain Respiratory: Reports: Shortness of Breath (occasional over past few days). Denies: Wheezing, Cough Cardiovascular: Reports: Palpitations (heart racing for 4-5 days). Denies: Chest Pain, Edema, Lightheadedness, Syncope Endocrine: Reports: High Glucose (at home blood sugar has been >300) GI/Abdominal: Reports: Abdominal Pain (generalized burning pain), Black Stool ( tarry stool - 1 episode per day for past 4 days), Diarrhea (one episode per day for past 4-5 days), Hematemesis (every emesis), Nausea, Vomiting (several episodes each day for past 4-5 days). Denies: Decreased Appetite : Reports: No Symptoms. Denies: Dysuria Musculoskeletal: Reports: No Symptoms. Denies: Neck Pain, Back Pain, Muscle Pain Skin: Reports: No Symptoms. Denies: Rash, Erythema Neurological: Reports: Headache. Denies: Dizziness, Numbness, Syncope, Tingling , Weakness Psychiatric: Reports: No Symptoms Hematologic/Lymphatic: Reports: No Symptoms ED EXAM, GI/ABD - Physical Exam Exam: See Below Exam Limited By: No Limitations General Appearance: Alert, WD/WN, Mild Distress, Thin Nose: Normal Inspection, Normal Mucosa, No Blood Throat/Mouth: Normal Inspection, Normal Gums, Normal Oropharynx Head: Atraumatic, Normocephalic Neck: Normal Inspection, Supple, Non-Tender, Full Range of Motion Respiratory/Chest: No Respiratory Distress, No Accessory Muscle Use, Chest Non- Tender, Wheezing (inspiratory in right upper and lower lobe). No: Rales, Rhonchi Cardiovascular: Normal Peripheral Pulses, No Edema, No Murmur, No Rub GI/Abdominal Exam: Normal Bowel Sounds, Soft, No Organomegaly, No Distention, No Mass, Tender (in all four quadrants, most severe in RLQ) Back Exam: Normal Inspection, Full Range of Motion Extremities: Normal Inspection, Normal Range of Motion, Non-Tender, Normal Capillary Refill, No Pedal Edema Neurological: Alert, Oriented, Normal Cognition, No Motor/Sensory Deficits Psychiatric: Normal Affect, Normal Mood Skin Exam: Warm, Dry, Intact, Normal Color, No Rash Lymphatic: No Adenopathy Course - Vital Signs Last Recorded V/S: Last Vital Signs Temp 98.4 F 01/17/20 20:42 Pulse 125 H 01/17/20 20:42 Resp 18 01/17/20 20:42 BP 126/77 01/17/20 20:42 Pulse Ox 99 01/17/20 20:42 - Orders/Labs/Meds Orders: Active Orders 24 hr Category Date Time Status EKG Documentation Completion [RC] STAT Care 01/17/20 17:53 Active Medication Orders Hydromorphone HCl (Dilaudid) 0.5 mg IVPUSH Q2H PRN PRN Reason: Pain Last Admin: 01/17/20 22:47 Dose: 0.5 mg Potassium Chloride/Sodium Chloride (1/2 Ns With 20 Meq Kcl) 1,000 mls @ 250 mls /hr IV ASDIRECTED TONIO Last Admin: 01/17/20 21:43 Dose: 250 mls/hr Insulin Human Regular 100 unit (/ Sodium Chloride) 100 mls @ 6 mls/hr IV TITRATE TONIO; Protocol Last Admin: 01/17/20 22:44 Dose: 10 unit/hr, 10 mls/hr Sodium Chloride (Normal Saline) 1,000 mls @ 999 mls/hr IV ONETIME ONE Stop: 01/17/20 23:29 Last Admin: 01/17/20 22:46 Dose: 999 mls/hr Influenza Virus Vaccine (Fluzone Quad Syringe) 60 mcg IM .ONCE ONE Stop: 01/18/20 10:01 Ondansetron HCl (Zofran) 4 mg IVPUSH Q8H PRN PRN Reason: Nausea/Vomiting Prochlorperazine Edisylate (Compazine) 10 mg IVPUSH Q8H PRN PRN Reason: Nausea/Vomiting Last Admin: 01/17/20 21:43 Dose: 10 mg Labs: Laboratory Tests 01/17/20 01/17/20 01/17/20 Range/Units 17:55 19:05 19:05 WBC 18.38 H (3.98-10.04) K/mm3 RBC 5.27 H (3.98-5.22) M/mm3 Hgb 15.8 H (11.2-15.7) gm/dl Hct 46.8 H (34.1-44.9) % MCV 88.8 D (79.4-94.8) fl MCH 30.0 (25.6-32.2) pg MCHC 33.8 (32.2-35.5) g/dl RDW Std Deviation 42.7 (36.4-46.3) fL Plt Count 209 (182-369) K/mm3 MPV 10.0 (9.4-12.3) fl Neut % (Auto) 90.0 H (34.0-71.1) % Lymph % (Auto) 4.5 L (19.3-51.7) % [place] % (Auto) 5.4 (4.7-12.5) % Eos % (Auto) 0 L (0.7-5.8) Baso % (Auto) 0.1 (0.1-1.2) % Neut # (Auto) 16.55 H (1.56-6.13) K/mm3 Lymph # (Auto) 0.82 L (1.18-3.74) K/mm3 [place] # (Auto) 0.99 H (0.24-0.36) K/mm3 Eos # (Auto) 0.00 L (0.04-0.36) K/mm3 Baso # (Auto) 0.02 (0.01-0.08) K/mm3 Manual Slide Review Abnormal smear PT (9.7-12.0) SECONDS INR APTT (22-31) SECONDS Puncture Site Rt radial ABG pH 7.19 L* (7.35-7.45) ABG pCO2 21.6 L (35.0-45.0) mmHg ABG pO2 87.0 (80.0-100.0) mmHg ABG HCO3 7.9 L (22.0-26.0) meq/L ABG O2 Saturation 95.3 L (96.0-97.0) % ABG Base Excess -19.3 L (-2-2.0) Darrell Test Positive O2 Delivery Device Room air FiO2 0.00 L (21.00-100.00) % Sodium 136 (136-145) mEq/L Potassium 4.9 D (3.5-5.1) mEq/L Chloride 95 L (98-107) mEq/L Carbon Dioxide 9 L D (21-32) mEq/L Anion Gap 36.9 H (5-15) BUN 34 H (7-18) mg/dL Creatinine 1.9 H (0.55-1.02) mg/dL Est Cr Clr Drug Dosing 38.69 mL/min Estimated GFR (MDRD) 30 (>60) mL/min BUN/Creatinine Ratio 17.9 (14-18) Glucose 528 H* (74-106) mg/dL Lactic Acid (0.4-2.0) mmol/L Calcium 8.5 (8.5-10.1) mg/dL Total Bilirubin 1.0 (0.2-1.0) mg/dL AST 13 L (15-37) U/L ALT 15 (14-59) U/L Alkaline Phosphatase 87 (46-116) U/L Total Protein 5.9 L (6.4-8.2) g/dl Albumin 3.0 L (3.4-5.0) g/dl Globulin 2.9 gm/dL Albumin/Globulin Ratio 1.0 (1-2) Lipase 26 L (73-393) U/L Urine Color (Yellow) Urine Appearance (Clear) Urine pH (5.0-8.0) Ur Specific [place] (1.005-1.030) Urine Protein (Negative) Urine Glucose (UA) (Negative) Urine Ketones (Negative) Urine Occult Blood (Negative) Urine Nitrite (Negative) Urine Bilirubin (Negative) Urine Urobilinogen (0.2-1.0) Ur Leukocyte Esterase (Negative) Urine RBC (0-5) /hpf Urine WBC (0-5) /hpf Ur Squamous Epith Cells (0-5) /hpf Urine Bacteria (FEW) /hpf Urine Mucus (FEW) /hpf Urine Yeast (Budding) (NOT SEEN) Urine Opiates Screen (TCYWYQ=521) Ur Buprenorphine Scrn (CUTOFF=10) Ur Oxycodone Screen (IZT1RS=375) Urine Methadone Screen (LWUODC=173) Ur Propoxyphene Screen (XOCGYJ=035) Ur Barbiturates Screen (CFJAEC=896) Ur Tricyclics Screen (BXZQPB=881) Ur Phencyclidine Scrn (CUTOFF=25) Ur Amphetamine Screen (XVVTXQ=558) U Methamphetamines Scrn (THCXFO=560) U Benzodiazepines Scrn (JXTDFR=922) U Cocaine Metab Screen (VDBQZX=272) U Marijuana (THC) Screen (CUTOFF=50) Ketones (0.0-0.3) mM 01/17/20 01/17/20 01/17/20 Range/Units 19:05 20:00 20:00 WBC (3.98-10.04) K/mm3 RBC (3.98-5.22) M/mm3 Hgb (11.2-15.7) gm/dl Hct (34.1-44.9) % MCV (79.4-94.8) fl MCH (25.6-32.2) pg MCHC (32.2-35.5) g/dl RDW Std Deviation (36.4-46.3) fL Plt Count (182-369) K/mm3 MPV (9.4-12.3) fl Neut % (Auto) (34.0-71.1) % Lymph % (Auto) (19.3-51.7) % [place] % (Auto) (4.7-12.5) % Eos % (Auto) (0.7-5.8) Baso % (Auto) (0.1-1.2) % Neut # (Auto) (1.56-6.13) K/mm3 Lymph # (Auto) (1.18-3.74) K/mm3 [place] # (Auto) (0.24-0.36) K/mm3 Eos # (Auto) (0.04-0.36) K/mm3 Baso # (Auto) (0.01-0.08) K/mm3 Manual Slide Review PT (9.7-12.0) SECONDS INR APTT (22-31) SECONDS Puncture Site ABG pH (7.35-7.45) ABG pCO2 (35.0-45.0) mmHg ABG pO2 (80.0-100.0) mmHg ABG HCO3 (22.0-26.0) meq/L ABG O2 Saturation (96.0-97.0) % ABG Base Excess (-2-2.0) Darrell Test O2 Delivery Device FiO2 (21.00-100.00) % Sodium (136-145) mEq/L Potassium (3.5-5.1) mEq/L Chloride (98-107) mEq/L Carbon Dioxide (21-32) mEq/L Anion Gap (5-15) BUN (7-18) mg/dL Creatinine (0.55-1.02) mg/dL Est Cr Clr Drug Dosing mL/min Estimated GFR (MDRD) (>60) mL/min BUN/Creatinine Ratio (14-18) Glucose (74-106) mg/dL Lactic Acid 3.4 H* (0.4-2.0) mmol/L Calcium (8.5-10.1) mg/dL Total Bilirubin (0.2-1.0) mg/dL AST (15-37) U/L ALT (14-59) U/L Alkaline Phosphatase (46-116) U/L Total Protein (6.4-8.2) g/dl Albumin (3.4-5.0) g/dl Globulin gm/dL Albumin/Globulin Ratio (1-2) Lipase (73-393) U/L Urine Color Yellow (Yellow) Urine Appearance Clear (Clear) Urine pH 5.5 (5.0-8.0) Ur Specific [place] 1.025 (1.005-1.030) Urine Protein 1+ H (Negative) Urine Glucose (UA) 2+ H (Negative) Urine Ketones 4+ H (Negative) Urine Occult Blood Trace-lysed H (Negative) Urine Nitrite Negative (Negative) Urine Bilirubin 1+ H (Negative) Urine Urobilinogen 0.2 (0.2-1.0) Ur Leukocyte Esterase Negative (Negative) Urine RBC 0-5 (0-5) /hpf Urine WBC 0-5 (0-5) /hpf Ur Squamous Epith Cells 5-10 H (0-5) /hpf Urine Bacteria Few (FEW) /hpf Urine Mucus Few (FEW) /hpf Urine Yeast (Budding) Few H (NOT SEEN) Urine Opiates Screen Negative (GMUBWQ=116) Ur Buprenorphine Scrn Presumptive positive (CUTOFF=10) Ur Oxycodone Screen Negative (HNI8RJ=759) Urine Methadone Screen Negative (TCAGML=763) Ur Propoxyphene Screen Negative (LGRSNV=643) Ur Barbiturates Screen Negative (VDVFUU=508) Ur Tricyclics Screen Negative (MOBLNJ=461) Ur Phencyclidine Scrn Negative (CUTOFF=25) Ur Amphetamine Screen Negative (RMLLWO=471) U Methamphetamines Scrn Negative (JPPFYP=748) U Benzodiazepines Scrn Negative (BJBQAQ=523) U Cocaine Metab Screen Negative (POPIEM=303) U Marijuana (THC) Screen Presumptive positive H (CUTOFF=50) Ketones (0.0-0.3) mM 01/17/20 01/17/20 Range/Units 20:05 20:05 WBC (3.98-10.04) K/mm3 RBC (3.98-5.22) M/mm3 Hgb (11.2-15.7) gm/dl Hct (34.1-44.9) % MCV (79.4-94.8) fl MCH (25.6-32.2) pg MCHC (32.2-35.5) g/dl RDW Std Deviation (36.4-46.3) fL Plt Count (182-369) K/mm3 MPV (9.4-12.3) fl Neut % (Auto) (34.0-71.1) % Lymph % (Auto) (19.3-51.7) % [place] % (Auto) (4.7-12.5) % Eos % (Auto) (0.7-5.8) Baso % (Auto) (0.1-1.2) % Neut # (Auto) (1.56-6.13) K/mm3 Lymph # (Auto) (1.18-3.74) K/mm3 [place] # (Auto) (0.24-0.36) K/mm3 Eos # (Auto) (0.04-0.36) K/mm3 Baso # (Auto) (0.01-0.08) K/mm3 Manual Slide Review PT 10.9 (9.7-12.0) SECONDS INR 1.00 APTT 26 (22-31) SECONDS Puncture Site ABG pH (7.35-7.45) ABG pCO2 (35.0-45.0) mmHg ABG pO2 (80.0-100.0) mmHg ABG HCO3 (22.0-26.0) meq/L ABG O2 Saturation (96.0-97.0) % ABG Base Excess (-2-2.0) Darrell Test O2 Delivery Device FiO2 (21.00-100.00) % Sodium (136-145) mEq/L Potassium (3.5-5.1) mEq/L Chloride (98-107) mEq/L Carbon Dioxide (21-32) mEq/L Anion Gap (5-15) BUN (7-18) mg/dL Creatinine (0.55-1.02) mg/dL Est Cr Clr Drug Dosing mL/min Estimated GFR (MDRD) (>60) mL/min BUN/Creatinine Ratio (14-18) Glucose (74-106) mg/dL Lactic Acid (0.4-2.0) mmol/L Calcium (8.5-10.1) mg/dL Total Bilirubin (0.2-1.0) mg/dL AST (15-37) U/L ALT (14-59) U/L Alkaline Phosphatase (46-116) U/L Total Protein (6.4-8.2) g/dl Albumin (3.4-5.0) g/dl Globulin gm/dL Albumin/Globulin Ratio (1-2) Lipase (73-393) U/L Urine Color (Yellow) Urine Appearance (Clear) Urine pH (5.0-8.0) Ur Specific [place] (1.005-1.030) Urine Protein (Negative) Urine Glucose (UA) (Negative) Urine Ketones (Negative) Urine Occult Blood (Negative) Urine Nitrite (Negative) Urine Bilirubin (Negative) Urine Urobilinogen (0.2-1.0) Ur Leukocyte Esterase (Negative) Urine RBC (0-5) /hpf Urine WBC (0-5) /hpf Ur Squamous Epith Cells (0-5) /hpf Urine Bacteria (FEW) /hpf Urine Mucus (FEW) /hpf Urine Yeast (Budding) (NOT SEEN) Urine Opiates Screen (CRHBBF=572) Ur Buprenorphine Scrn (CUTOFF=10) Ur Oxycodone Screen (UTX5YE=269) Urine Methadone Screen (QAMLUL=427) Ur Propoxyphene Screen (GPNTHX=229) Ur Barbiturates Screen (QAFQDA=338) Ur Tricyclics Screen (QTSHWA=249) Ur Phencyclidine Scrn (CUTOFF=25) Ur Amphetamine Screen (NPVTFU=368) U Methamphetamines Scrn (JLVDIY=468) U Benzodiazepines Scrn (MNDDPL=132) U Cocaine Metab Screen (BNPQUB=931) U Marijuana (THC) Screen (CUTOFF=50) Ketones 1.62 (0.0-0.3) mM Meds: Medications Generic Name Dose Route Start Last Admin Trade Name Freq PRN Reason Stop Dose Admin Hydromorphone HCl 0.5 mg 01/17/20 21:59 01/17/20 22:47 Dilaudid IVPUSH 0.5 mg Q2H PRN Administration Pain Potassium Chloride/Sodium Chloride 1,000 mls @ 250 mls/hr 01/17/20 21:30 21:43 1/2 Ns With 20 Meq Kcl IV 250 mls/hr ASDIRECTED TONIO Administration Insulin Human Regular 100 unit 100 mls @ 6 mls/hr 01/17/20 21:45 01/17/20 22: 44 / Sodium Chloride IV 10 unit/hr TITRATE TONIO 10 mls/hr Administration Protocol 6 UNIT/HR Sodium Chloride 1,000 mls @ 999 mls/hr 01/17/20 22:29 01/17/20 22:46 Normal Saline IV 01/17/20 23:29 999 mls/hr ONETIME ONE Administration Influenza Virus Vaccine 60 mcg 01/18/20 10:00 Fluzone Quad [id number] Syringe IM 01/18/20 10:01 .ONCE ONE Ondansetron HCl 4 mg 01/17/20 21:29 Zofran IVPUSH Q8H PRN Nausea/Vomiting Prochlorperazine Edisylate 10 mg 01/17/20 21:28 01/17/20 21:43 Compazine IVPUSH 10 mg Q8H PRN Administration Nausea/Vomiting Discontinued Medications Generic Name Dose Route Start Last Admin Trade Name Freq PRN Reason Stop Dose Admin Hydromorphone HCl 0.5 mg 01/17/20 18:25 01/17/20 18:41 Dilaudid IVPUSH 01/17/20 18:26 0.5 mg ONETIME ONE Administration Hydromorphone HCl 0.5 mg 01/17/20 20:01 01/17/20 20:09 Dilaudid IVPUSH 01/17/20 20:02 0.5 mg ONETIME ONE Administration Sodium Chloride 1,000 mls @ 999 mls/hr 01/17/20 18:00 01/17/20 18:02 Normal Saline IV 999 mls/hr ASDIRECTED TONIO Administration Sodium Chloride 1,000 mls @ 999 mls/hr 01/17/20 18:30 01/17/20 18:41 Normal Saline IV 999 mls/hr ASDIRECTED TONIO Administration Lactated Ringer's 1,000 mls @ 999 mls/hr 01/17/20 19:30 01/17/20 20:09 Ringers, Lactated IV 999 mls/hr ASDIRECTED TONIO Administration Insulin Human Regular 100 unit 100 mls @ 6.12 mls/hr 01/17/20 20:15 01/17/20 20:17 / Sodium Chloride IV 0.1 units/kg/hr TITRATE TONIO 6.12 mls/hr Administration Protocol 0.1 UNITS/KG/HR Ondansetron HCl 4 mg 01/17/20 17:54 01/17/20 17:59 Zofran IVPUSH 01/17/20 17:55 4 mg ONETIME ONE Administration Pantoprazole Sodium 80 mg 01/17/20 18:25 01/17/20 18:42 Protonix Iv IVPUSH 01/17/20 18:26 80 mg BOLUS ONE Administration Departure - Departure Disposition: Admitted As Inpatient 65 Clinical Impression: Diabetic ketoacidosis Qualifiers: Diabetes mellitus type: type 1 Diabetes mellitus complication detail: without coma Qualified Code(s): E10.10 - Type 1 diabetes mellitus with ketoacidosis without coma - Discharge Information Sepsis Event Note - Evaluation Sepsis Screening Result: No Definite Risk - Focused Exam Vital Signs: Vital Signs Temp Pulse Resp BP Pulse Ox 01/17/20 17:36 97.3 F 131 H 13 103/69 98 Date Exam was Performed: 01/17/20 Time Exam was Performed: 18:06 - My Orders Last 24 Hours: My Active Orders 01/17/20 17:53 EKG Documentation Completion [RC] STAT - Assessment/Plan Last 24 Hours: My Active Orders 01/17/20 17:53 EKG Documentation Completion [RC] STAT <Rina Cannon - Last Filed: 01/17/20 23:14> ED HPI GENERAL MEDICAL PROBLEM - History of Present Illness INITIAL COMMENTS - FREE TEXT/NARRATIVE: Patient states that she saw a ship officer, Abner Lutz, regarding her cyclic vomiting syndrome, as well as her history of hematemesis and hematochezia. She states that she put her on topical Phenergan for her nausea. She is scheduled for an EGD outpatient on 01 February. Patient states that she generally takes Tresiba 26 units daily, however she has not taken any insulin yet today and yesterday show 20 units. She states when she is vomiting she only takes the medication every other day. She did give herself a 2 unit sliding scale dose of NovoLog shortly prior to coming to the ER. Course - Re-Assessments/Exams Free Text/Narrative Re-Assessment/Exam: I have assessed the patient and agree with the HPI, ROS, and exam as documented by Rosaura, CLIENT APPLICATION SUPPORT ENGINEER student. 01/17/20 19:06 Lab is still attempting to draw blood from the patient. They are having difficulty. We will continue to infuse IV fluids until we can get a metabolic panel. 01/17/20 20:20 Hematology shows a WBC of 18.38, hemoglobin 15.8, chloride 95, CO2 9, anion gap 36.9, BUN 34, creatinine 1.9, glucose 528, lactic acid 3.4. Blood gases show a pH of 7.19, PCO2 21.6, bicarb 7.9. Patient has received a total of 2 L of normal saline bolus and is on now on a 1 liter bolus of LR. We will start an insulin drip at 0.1 unit/kg/h. Spoke with Dr. Levine. Patient will be admitted to ICU for acute DKA. 01/17/20 23:14 Departure - Departure Time of Disposition: 20:20 Condition: Fair - Discharge Information *PRESCRIPTION DRUG MONITORING PROGRAM REVIEWED*: No *COPY OF PRESCRIPTION DRUG MONITORING REPORT IN PATIENT TANNER: No Sepsis Event Note - Focused Exam Date Exam was Performed: 01/17/20 Time Exam was Performed: 23:12
[2020-01-17] MEDS ORDERED: Pantoprazole 40 MG Vial IVPUSH ONE (18:25)
[2020-01-17] MEDS ORDERED: HYDROmorphone 0.5 MG/0.5 ML Syringe IVPUSH ONE ×2 (18:25→20:01)
[2020-01-17] MEDS ORDERED: Lactated Ringers 1,000 ML IV SCH (19:30)
[2020-01-17] MEDS ORDERED: Ondansetron 4 MG/2 ML SDV IVPUSH PRN (21:29)
[2020-01-17] MEDS: Sodium Chloride 0.45% with KCl 1,000 ML IV SCH (21:43)
[2020-01-17] MEDS: Prochlorperazine 10 MG/2 ML SDV IVPUSH PRN (21:43)
--- NOTE | 2020-01-17 22:14 | PCM.HP.2 ---
H&P History of Present Illness - General Date of Service: 01/17/20 Admit Problem/Dx: Admission Diagnosis/Problem Admission Diagnosis/Problem Diabetic ketoacidosis - History of Present Illness Initial Comments - Free Text/Narative: 34-year-old type I diabetic with gastroparesis known to the hospitalist service presented to the emergency room with 4 days of nausea, vomiting, and diarrhea. Patient states that she has had multiple episodes of hematemesis, and melena. She has been having difficulty with cyclic vomiting for quite some time and has an appointment February 01 for panendoscopy. Patient states that she has 9 out of 10 abdominal pain cramping. This is similar to her other episodes of DKA. Patient has been taking half of her normal insulin and her blood sugars have been 300 or greater. She denies any fever, chills, night sweats, chest pain. In the emergency room her glucose was 528 with a bicarb of 9, anion gap of 37, ABG: pH 7.19, PCO2 of 21.6, PO2 87, HCO3 7.9. Patient was given 3 L normal saline bolus, and started on an insulin drip at 0.1 units/kg/h. Abdomen Pain Score (Numeric/FACES): 9 - Related Data Allergies/Adverse Reactions: Allergies Allergy/AdvReac Type Severity Reaction Status Date / Time latex Allergy Hives Verified 01/17/20 22:04 tramadol Allergy Hives Verified 01/17/20 22:04 Home Medications: Home Meds Insulin Aspart [Novolog Flexpen] See Protocol SUBCNJ TIDMEALS 01/05/18 [History] Insulin Degludec [Tresiba] 27 unit SQ DAILY 12/18/18 [History] Buprenorphine HCl/Naloxone HCl [Suboxone 4 mg-1 mg Sl Film] 8 mg PO BID [History] Ondansetron [Zofran ODT] 4 mg PO Q6H PRN #20 tab.dis 06/27/19 [Rx] Citalopram Hydrobromide [Celexa] 20 mg PO DAILY 07/30/19 [History] Pantoprazole [ProTONIX] 20 mg PO DAILY 07/30/19 [History] Insulin Lispro [HumaLOG] 0 unit SUBCUT QIDACANDBED vial 08/26/19 [Rx] Promethazine [Phenergan] 25 mg PO Q4H PRN #8 tab 10/18/19 [Rx] Promethazine [Phenergan] 25 mg PO Q4H PRN #20 tab 12/11/19 [Rx] Past Medical History HEENT History: Reports: Other (See Below) Other HEENT History: dysphagia Cardiovascular History: Reports: Hypertension Respiratory History: Reports: PE Gastrointestinal History: Reports: Chronic Diarrhea, GERD, Irritable Bowel Syndrome Other Gastrointestinal History: diarrhea, nausea, LLQ pain 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 History: Reports: Acute Renal Failure [employer] HEL[employer] History: Reports: Endometriosis, Other OB/BYN History: amenorrhea Musculoskeletal History: Reports: Arthritis, Back Pain, Chronic Other Musculoskeletal History: chronic pain Neurological History: Reports: Headaches, Chronic, Migraines, Seizure Other Neuro History: Diabetic seizure Psychiatric History: Reports: Anxiety, Depression Other Psychiatric History: drug use history Endocrine/Metabolic History: Reports: Diabetes, Type I, Hypokalemia Other Endocrine/Metabolic History: hypokalemia Hematologic History: Reports: Blood Transfusion(s) Other Hematologic History: blood clotting disorder, DVT Other Immunologic History: risk for HIV from IV drug use, MRSA Dermatologic History: Reports: Eczema, Psoriasis - Infectious Disease History Infectious Disease History: Reports: MRSA Other Infectious Disease History: MRSA-2 yrs ago - Past Surgical History GI Surgical History: Reports: Cholecystectomy Other GI Surgeries/Procedures: ileostomy and closure, small bowel resection Social & Family History - Family History Family Medical History: Noncontributory - Tobacco Use Smoking Status *Q: Current Every Day Smoker Years of Tobacco use: 20 Packs/Tins Daily: 1 - Caffeine Use Caffeine Use: Reports: Soda Other Caffeine Use: drinks mellow yellow daily about 3 cans - Recreational Drug Use Recreational Drug Use: Yes Drug Use in Last 12 Months: Yes Recreational 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 Exam - Exam Exam: See Below - Vital Signs Vital Signs: Last Vital Signs Temp 97.3 F 01/17/20 17:36 Pulse 131 H 01/17/20 17:36 Resp 13 01/17/20 17:36 BP 103/69 01/17/20 17:36 Pulse Ox 98 01/17/20 17:36 Weight: 119 lb 11.2 oz - Exam Quality Assessment: Other (Ill-appearing nontoxic female) General: Alert, Oriented, 4 HEENT: Conjunctiva Clear, Hearing Intact, Mucosa Moist & [place] Neck: Supple, Trachea Midline, 2 Lungs: Clear to Auscultation, Normal Respiratory Effort Cardiovascular: Regular Rhythm, Tachycardia GI/Abdominal Exam: Soft, No Distention, Tender (Epigastric tenderness). No: Normal Bowel Sounds (Decreased bowel sounds), Guarding, Rigid, Rebound Back Exam: Normal Inspection Extremities: Normal Inspection, Normal Range of Motion, Non-Tender, No Pedal Edema, Normal Capillary Refill Skin: Warm, Dry, Intact Neuro Extensive - Mental Status: Alert, Oriented x3, Normal Mood/Affect, Normal Cognition, Memory Intact Neuro Extensive - Motor, Sensory, Reflexes: CN II-XII Intact Psychiatric: Alert, Normal Affect, Normal Mood - Patient Data Lab Results Last 24 hrs: Laboratory Results - last 24 hr 01/17/20 01/17/20 01/17/20 Range/Units 17:55 19:05 19:05 WBC 18.38 H (3.98-10.04) K/mm3 RBC 5.27 H (3.98-5.22) M/mm3 Hgb 15.8 H (11.2-15.7) gm/dl Hct 46.8 H (34.1-44.9) % MCV 88.8 D (79.4-94.8) fl MCH 30.0 (25.6-32.2) pg MCHC 33.8 (32.2-35.5) g/dl RDW Std Deviation 42.7 (36.4-46.3) fL Plt Count 209 (182-369) K/mm3 MPV 10.0 (9.4-12.3) fl Neut % (Auto) 90.0 H (34.0-71.1) % Lymph % (Auto) 4.5 L (19.3-51.7) % [place] % (Auto) 5.4 (4.7-12.5) % Eos % (Auto) 0 L (0.7-5.8) Baso % (Auto) 0.1 (0.1-1.2) % Neut # (Auto) 16.55 H (1.56-6.13) K/mm3 Lymph # (Auto) 0.82 L (1.18-3.74) K/mm3 [place] # (Auto) 0.99 H (0.24-0.36) K/mm3 Eos # (Auto) 0.00 L (0.04-0.36) K/mm3 Baso # (Auto) 0.02 (0.01-0.08) K/mm3 Manual Slide Review Abnormal smear PT (9.7-12.0) SECONDS INR APTT (22-31) SECONDS Puncture Site Rt radial ABG pH 7.19 L* (7.35-7.45) ABG pCO2 21.6 L (35.0-45.0) mmHg ABG pO2 87.0 (80.0-100.0) mmHg ABG HCO3 7.9 L (22.0-26.0) meq/L ABG O2 Saturation 95.3 L (96.0-97.0) % ABG Base Excess -19.3 L (-2-2.0) Darrell Test Positive O2 Delivery Device Room air FiO2 0.00 L (21.00-100.00) % Sodium 136 (136-145) mEq/L Potassium 4.9 D (3.5-5.1) mEq/L Chloride 95 L (98-107) mEq/L Carbon Dioxide 9 L D (21-32) mEq/L Anion Gap 36.9 H (5-15) BUN 34 H (7-18) mg/dL Creatinine 1.9 H (0.55-1.02) mg/dL Est Cr Clr Drug Dosing 38.69 mL/min Estimated GFR (MDRD) 30 (>60) mL/min BUN/Creatinine Ratio 17.9 (14-18) Glucose 528 H* (74-106) mg/dL Lactic Acid (0.4-2.0) mmol/L Calcium 8.5 (8.5-10.1) mg/dL Total Bilirubin 1.0 (0.2-1.0) mg/dL AST 13 L (15-37) U/L ALT 15 (14-59) U/L Alkaline Phosphatase 87 (46-116) U/L Total Protein 5.9 L (6.4-8.2) g/dl Albumin 3.0 L (3.4-5.0) g/dl Globulin 2.9 gm/dL Albumin/Globulin Ratio 1.0 (1-2) Lipase 26 L (73-393) U/L Urine Color (Yellow) Urine Appearance (Clear) Urine pH (5.0-8.0) Ur Specific [place] (1.005-1.030) Urine Protein (Negative) Urine Glucose (UA) (Negative) Urine Ketones (Negative) Urine Occult Blood (Negative) Urine Nitrite (Negative) Urine Bilirubin (Negative) Urine Urobilinogen (0.2-1.0) Ur Leukocyte Esterase (Negative) Urine RBC (0-5) /hpf Urine WBC (0-5) /hpf Ur Squamous Epith Cells (0-5) /hpf Urine Bacteria (FEW) /hpf Urine Mucus (FEW) /hpf Urine Yeast (Budding) (NOT SEEN) Urine Opiates Screen (PHVWDL=651) Ur Buprenorphine Scrn (CUTOFF=10) Ur Oxycodone Screen (RET1NX=255) Urine Methadone Screen (AKFTUO=777) Ur Propoxyphene Screen (DVEBUY=491) Ur Barbiturates Screen (NUCUFI=166) Ur Tricyclics Screen (AGGZDE=779) Ur Phencyclidine Scrn (CUTOFF=25) Ur Amphetamine Screen (PIZYYX=895) U Methamphetamines Scrn (KQLSSM=245) U Benzodiazepines Scrn (ZIGORE=290) U Cocaine Metab Screen (CNEQUU=058) U Marijuana (THC) Screen (CUTOFF=50) 01/17/20 01/17/20 01/17/20 Range/Units 19:05 20:00 20:00 WBC (3.98-10.04) K/mm3 RBC (3.98-5.22) M/mm3 Hgb (11.2-15.7) gm/dl Hct (34.1-44.9) % MCV (79.4-94.8) fl MCH (25.6-32.2) pg MCHC (32.2-35.5) g/dl RDW Std Deviation (36.4-46.3) fL Plt Count (182-369) K/mm3 MPV (9.4-12.3) fl Neut % (Auto) (34.0-71.1) % Lymph % (Auto) (19.3-51.7) % [place] % (Auto) (4.7-12.5) % Eos % (Auto) (0.7-5.8) Baso % (Auto) (0.1-1.2) % Neut # (Auto) (1.56-6.13) K/mm3 Lymph # (Auto) (1.18-3.74) K/mm3 [place] # (Auto) (0.24-0.36) K/mm3 Eos # (Auto) (0.04-0.36) K/mm3 Baso # (Auto) (0.01-0.08) K/mm3 Manual Slide Review PT (9.7-12.0) SECONDS INR APTT (22-31) SECONDS Puncture Site ABG pH (7.35-7.45) ABG pCO2 (35.0-45.0) mmHg ABG pO2 (80.0-100.0) mmHg ABG HCO3 (22.0-26.0) meq/L ABG O2 Saturation (96.0-97.0) % ABG Base Excess (-2-2.0) Darrell Test O2 Delivery Device FiO2 (21.00-100.00) % Sodium (136-145) mEq/L Potassium (3.5-5.1) mEq/L Chloride (98-107) mEq/L Carbon Dioxide (21-32) mEq/L Anion Gap (5-15) BUN (7-18) mg/dL Creatinine (0.55-1.02) mg/dL Est Cr Clr Drug Dosing mL/min Estimated GFR (MDRD) (>60) mL/min BUN/Creatinine Ratio (14-18) Glucose (74-106) mg/dL Lactic Acid 3.4 H* (0.4-2.0) mmol/L Calcium (8.5-10.1) mg/dL Total Bilirubin (0.2-1.0) mg/dL AST (15-37) U/L ALT (14-59) U/L Alkaline Phosphatase (46-116) U/L Total Protein (6.4-8.2) g/dl Albumin (3.4-5.0) g/dl Globulin gm/dL Albumin/Globulin Ratio (1-2) Lipase (73-393) U/L Urine Color Yellow (Yellow) Urine Appearance Clear (Clear) Urine pH 5.5 (5.0-8.0) Ur Specific [place] 1.025 (1.005-1.030) Urine Protein 1+ H (Negative) Urine Glucose (UA) 2+ H (Negative) Urine Ketones 4+ H (Negative) Urine Occult Blood Trace-lysed H (Negative) Urine Nitrite Negative (Negative) Urine Bilirubin 1+ H (Negative) Urine Urobilinogen 0.2 (0.2-1.0) Ur Leukocyte Esterase Negative (Negative) Urine RBC 0-5 (0-5) /hpf Urine WBC 0-5 (0-5) /hpf Ur Squamous Epith Cells 5-10 H (0-5) /hpf Urine Bacteria Few (FEW) /hpf Urine Mucus Few (FEW) /hpf Urine Yeast (Budding) Few H (NOT SEEN) Urine Opiates Screen Negative (LVDHTM=479) Ur Buprenorphine Scrn Presumptive positive (CUTOFF=10) Ur Oxycodone Screen Negative (OWA3SK=933) Urine Methadone Screen Negative (CCTXHS=743) Ur Propoxyphene Screen Negative (KOOXIZ=132) Ur Barbiturates Screen Negative (BOSVXU=462) Ur Tricyclics Screen Negative (EEBWZA=570) Ur Phencyclidine Scrn Negative (CUTOFF=25) Ur Amphetamine Screen Negative (DTXIYQ=657) U Methamphetamines Scrn Negative (DUWQFY=941) U Benzodiazepines Scrn Negative (PDADVJ=210) U Cocaine Metab Screen Negative (SNITGC=310) U Marijuana (THC) Screen Presumptive positive H (CUTOFF=50) 01/17/20 Range/Units 20:05 WBC (3.98-10.04) K/mm3 RBC (3.98-5.22) M/mm3 Hgb (11.2-15.7) gm/dl Hct (34.1-44.9) % MCV (79.4-94.8) fl MCH (25.6-32.2) pg MCHC (32.2-35.5) g/dl RDW Std Deviation (36.4-46.3) fL Plt Count (182-369) K/mm3 MPV (9.4-12.3) fl Neut % (Auto) (34.0-71.1) % Lymph % (Auto) (19.3-51.7) % [place] % (Auto) (4.7-12.5) % Eos % (Auto) (0.7-5.8) Baso % (Auto) (0.1-1.2) % Neut # (Auto) (1.56-6.13) K/mm3 Lymph # (Auto) (1.18-3.74) K/mm3 [place] # (Auto) (0.24-0.36) K/mm3 Eos # (Auto) (0.04-0.36) K/mm3 Baso # (Auto) (0.01-0.08) K/mm3 Manual Slide Review PT 10.9 (9.7-12.0) SECONDS INR 1.00 APTT 26 (22-31) SECONDS Puncture Site ABG pH (7.35-7.45) ABG pCO2 (35.0-45.0) mmHg ABG pO2 (80.0-100.0) mmHg ABG HCO3 (22.0-26.0) meq/L ABG O2 Saturation (96.0-97.0) % ABG Base Excess (-2-2.0) Darrell Test O2 Delivery Device FiO2 (21.00-100.00) % Sodium (136-145) mEq/L Potassium (3.5-5.1) mEq/L Chloride (98-107) mEq/L Carbon Dioxide (21-32) mEq/L Anion Gap (5-15) BUN (7-18) mg/dL Creatinine (0.55-1.02) mg/dL Est Cr Clr Drug Dosing mL/min Estimated GFR (MDRD) (>60) mL/min BUN/Creatinine Ratio (14-18) Glucose (74-106) mg/dL Lactic Acid (0.4-2.0) mmol/L Calcium (8.5-10.1) mg/dL Total Bilirubin (0.2-1.0) mg/dL AST (15-37) U/L ALT (14-59) U/L Alkaline Phosphatase (46-116) U/L Total Protein (6.4-8.2) g/dl Albumin (3.4-5.0) g/dl Globulin gm/dL Albumin/Globulin Ratio (1-2) Lipase (73-393) U/L Urine Color (Yellow) Urine Appearance (Clear) Urine pH (5.0-8.0) Ur Specific [place] (1.005-1.030) Urine Protein (Negative) Urine Glucose (UA) (Negative) Urine Ketones (Negative) Urine Occult Blood (Negative) Urine Nitrite (Negative) Urine Bilirubin (Negative) Urine Urobilinogen (0.2-1.0) Ur Leukocyte Esterase (Negative) Urine RBC (0-5) /hpf Urine WBC (0-5) /hpf Ur Squamous Epith Cells (0-5) /hpf Urine Bacteria (FEW) /hpf Urine Mucus (FEW) /hpf Urine Yeast (Budding) (NOT SEEN) Urine Opiates Screen (JAIAOZ=085) Ur Buprenorphine Scrn (CUTOFF=10) Ur Oxycodone Screen (LWM6QM=977) Urine Methadone Screen (WSKBWP=105) Ur Propoxyphene Screen (DCMCTO=745) Ur Barbiturates Screen (QAVBGF=886) Ur Tricyclics Screen (TYBAXV=002) Ur Phencyclidine Scrn (CUTOFF=25) Ur Amphetamine Screen (LAEPGL=526) U Methamphetamines Scrn (HQHBZT=463) U Benzodiazepines Scrn (RXDIVW=475) U Cocaine Metab Screen (PXCSYY=288) U Marijuana (THC) Screen (CUTOFF=50) Result Diagrams: 01/17/20 21:55 01/18/20 06:00 Sepsis Event Note - Evaluation Sepsis Screening Result: No Definite Risk - Focused Exam Vital Signs: Vital Signs Temp Pulse Resp BP Pulse Ox 01/17/20 17:36 97.3 F 131 H 13 103/69 98 Date Exam was Performed: 01/18/20 Time Exam was Performed: 09:02 Problem List Initiated/Reviewed/Updated: Yes Orders Last 24hrs: Active Orders 24 hr Category Date Time Status Patient Status [ADT] Routine ADT 01/17/20 20:20 Active Antiembolic Devices [RC] PER UNIT ROUTINE Care 01/17/20 22:01 Active Blood Glucose Check, Bedside [RC] Q1HR Care 01/17/20 21:30 Active EKG Documentation Completion [RC] STAT Care 01/17/20 17:53 Active Influenza Vaccine Charge [RC] .DISCHARGE Care 01/17/20 21:05 Active Oxygen Therapy [RC] PRN Care 01/17/20 21:59 Active Up With Assistance [RC] ASDIRECTED Care 01/17/20 21:59 Active VTE/DVT Education [RC] PER UNIT ROUTINE Care 01/17/20 21:59 Active Vital Signs [RC] Q4H Care 01/17/20 21:59 Active Nothing per Oral Now Diet [DIET] Diet 01/17/20 Dinner Active ABG [BLOOD GAS ARTERIAL] [BG] Urgent Lab 01/17/20 22:06 Ordered BASIC METABOLIC PANEL,BMP [CHEM] Stat Lab 01/17/20 21:55 Received HEMOGLOBIN/HEMATOCRIT,HH [HEME] Stat Lab 01/17/20 21:55 Received KETONES,BLOOD [CHEM] Routine Lab 01/17/20 22:04 Ordered LACTIC ACID [CHEM] Stat Lab 01/17/20 23:00 Ordered MAGNESIUM [CHEM] Stat Lab 01/17/20 21:55 Received FLU Vacc [id number](6MOS+)/PF [Fluzone Quad Med 01/18/20 10:00 Once Syringe] 60 mcg IM .ONCE ONE HYDROmorphone [Dilaudid] Med 01/17/20 21:59 Active 0.5 mg IVPUSH Q2H PRN Insulin Regular, Human [HumuLIN R] 100 unit Med 01/17/20 21:45 Active Sodium Chloride 0.9% [Normal Saline] 99 ml IV TITRATE Ondansetron [Zofran] Med 01/17/20 21:29 Active 4 mg IVPUSH Q8H PRN Prochlorperazine [Compazine] Med 01/17/20 21:28 Active 10 mg IVPUSH Q8H PRN Sodium Chloride 0.45% with KCl [1/2 NS with 20 mEq KCl] Med 01/17/20 21:30 Active 1,000 ml IV ASDIRECTED Sequential Compression Device [OM.PC] Per Unit Routine Oth 01/17/20 22:00 Ordered Resuscitation Status Routine Resus Stat 01/17/20 21:59 Ordered Medication Orders Hydromorphone HCl (Dilaudid) 0.5 mg IVPUSH Q2H PRN PRN Reason: Pain Potassium Chloride/Sodium Chloride (1/2 Ns With 20 Meq Kcl) 1,000 mls @ 250 mls /hr IV ASDIRECTED TONIO Last Admin: 01/17/20 21:43 Dose: 250 mls/hr Insulin Human Regular 100 unit (/ Sodium Chloride) 100 mls @ 6 mls/hr IV TITRATE TONIO; Protocol Influenza Virus Vaccine (Fluzone Quad Syringe) 60 mcg IM .ONCE ONE Stop: 01/18/20 10:01 Ondansetron HCl (Zofran) 4 mg IVPUSH Q8H PRN PRN Reason: Nausea/Vomiting Prochlorperazine Edisylate (Compazine) 10 mg IVPUSH Q8H PRN PRN Reason: Nausea/Vomiting Last Admin: 01/17/20 21:43 Dose: 10 mg Assessment/Plan Comment:: Assessment * Diabetic ketoacidosis in a type 1 diabetic * pH 7.19, bicarb 9, glucose 528, anion gap 37 * Did not take any insulin today and approximately half of her normal dose yesterday * Normally on Tresiba 26 units daily and when she starts vomiting takes it every other day * She took 2 units sliding scale of NovoLog shortly prior to coming to the emergency department * Gastroparesis with recent episode of cyclic vomiting * Hematemesis and melena * Hemoglobin 15.8 but likely hemoconcentrated * Currently undergoing treatment with gastroenterology * Acute kidney injury * BUN 34, creatinine 1.9, estimated GFR 30 * Secondary to hypovolemia * Received 3 L normal saline in the emergency room * Tobaccoism Plan * Admit to ICU * Continue fluid resuscitation * Diabetic protocol * Insulin drip * When blood sugar is less than 200 switch to D5 half-normal saline with 20 mEq KCl/L until anion gap closes * Follow BMP every 4 hours with venous pH * Blood sugars every hour until out of DKA and taking orally * Compazine alternating with Zofran for nausea * Dilaudid for pain * Nicotine patch * VTE prophylaxis with SCDs * Status: Full code - Mortality Measure Prognosis:: Good
[2020-01-17] MEDS ORDERED: Sodium Chloride 0.9% 1,000 ML IV ONE (22:29)
[2020-01-17] MEDS: HYDROmorphone 0.5 MG/0.5 ML Syringe IVPUSH PRN (22:47)
[2020-01-18] MEDS: Sodium Chloride 0.45% with KCl 1,000 ML IV SCH (02:57)
[2020-01-18] MEDS: D5 1/2 NS w/ 20 mEq/L KCl 1,000 ML IV SCH ×2 (03:57→10:01)
[2020-01-18] MEDS: HYDROmorphone 0.5 MG/0.5 ML Syringe IVPUSH PRN ×5 (05:57→15:46)
[2020-01-18] MEDS ORDERED: Magnesium Sulfate/Water 4 GM in Premix Bag 1 BAG IV ONE (08:34)
[2020-01-18] MEDS ORDERED: Nicotine 21 MG/24 Hr Patch TRDERM SCH (09:00)
[2020-01-18] MEDS: Prochlorperazine 10 MG/2 ML SDV IVPUSH PRN (10:04)
[2020-01-18] MEDS: FLU Vacc QS2019-20(6MOS+)/PF 60 MCG/0.5 ML SYRINGE IM ONE ×2 (10:19→16:31)
[2020-01-18] MEDS ORDERED: Pantoprazole 40 MG Vial IVPUSH SCH (11:00)
[2020-01-18] MEDS ORDERED: Insulin Glarg,Human.Rec.Analog 100 Unit/ML SUBCUT SCH (13:00)
[2020-01-18 15:19] LABS: HEMOGLOBIN A1C 10.2 % (4.50-6.20)
--- NOTE | 2020-01-18 15:44 | PCM.DCSUM1 ---
Discharge Summary - Hospital Course HPI Initial Comments: 34-year-old type I diabetic with gastroparesis known to the hospitalist service presented to the emergency room with 4 days of nausea, vomiting, and diarrhea. Patient states that she has had multiple episodes of hematemesis, and melena. She has been having difficulty with cyclic vomiting for quite some time and has an appointment February 01 for panendoscopy. Patient states that she has 9 out of 10 abdominal pain cramping. This is similar to her other episodes of DKA. Patient has been taking half of her normal insulin and her blood sugars have been 300 or greater. She denies any fever, chills, night sweats, chest pain. In the emergency room her glucose was 528 with a bicarb of 9, anion gap of 37, ABG: pH 7.19, PCO2 of 21.6, PO2 87, HCO3 7.9. Patient was given 3 L normal saline bolus, and started on an insulin drip at 0.1 units/kg/h. Diagnosis: Stroke: No - Discharge Data Discharge Date: 01/18/20 Discharge Disposition: Home, Self-Care 01 Condition: Good - Referral to Home Health Primary Care Physician: Fanta Canseco PA-C - Patient Summary/Data Hospital Course: She was admitted and started on an insulin drip. DKA protocol was utilized and patient's anion gap closed the next morning. She tolerated a regular diet, and blood sugars were stable. Patient was then discharged home. - Patient Instructions Diet: Diabetic Diet - Discharge Plan *PRESCRIPTION DRUG MONITORING PROGRAM REVIEWED*: No *COPY OF PRESCRIPTION DRUG MONITORING REPORT IN PATIENT TANNER: No Prescriptions/Med Rec: Nicotine [Habitrol] 21 mg TRDERM DAILY #30 patch Home Medications: Home Meds Insulin Aspart [Novolog Flexpen] See Protocol SUBCNJ TIDMEALS 01/05/18 [History] Insulin Degludec [Tresiba] 27 unit SQ DAILY 12/18/18 [History] Buprenorphine HCl/Naloxone HCl [Suboxone 4 mg-1 mg Sl Film] 8 mg PO BID [History] Ondansetron [Zofran ODT] 4 mg PO Q6H PRN #20 tab.dis 06/27/19 [Rx] Citalopram Hydrobromide [Celexa] 20 mg PO DAILY 07/30/19 [History] Pantoprazole [ProTONIX] 20 mg PO DAILY 07/30/19 [History] Insulin Lispro [HumaLOG] 0 unit SUBCUT QIDACANDBED vial 08/26/19 [Rx] Promethazine [Phenergan] 25 mg PO Q4H PRN #8 tab 10/18/19 [Rx] Promethazine [Phenergan] 25 mg PO Q4H PRN #20 tab 12/11/19 [Rx] Nicotine [Habitrol] 21 mg TRDERM DAILY #30 patch 01/18/20 [Rx] Oxygen Therapy Mode: Room Air Patient Handouts: Steps to Quit Smoking Forms: ED Department Discharge Referrals: Fanta Canseco PA-C [Primary Care Provider] - 01/31/20 9:45 am - Discharge Summary/Plan Comment DC Time >30 min.: Yes Discharge Summary/Plan Comment: Patient was discharged home. 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 She is scheduled for panendoscopy at the first of next month. - General Info Date of Service: 01/18/20 Admission Dx/Problem (Free Text: Admission Diagnosis/Problem Admission Diagnosis/Problem Diabetic ketoacidosis Subjective Update: Patient states that she is feeling well. Nausea and vomiting have resolved. Is hungry and asking for food. Functional Status: Reports: Pain Controlled - Review of Systems General: Reports: No Symptoms HEENT: Reports: No Symptoms Pulmonary: Reports: No Symptoms Cardiovascular: Reports: No Symptoms Musculoskeletal: Reports: No Symptoms - Patient Data Vitals - Most Recent: Last Vital Signs Temp 98.5 F 01/18/20 11:05 Pulse 97 01/18/20 11:05 Resp 16 01/18/20 11:05 BP 110/71 01/18/20 11:05 Pulse Ox 93 L 01/18/20 11:05 Weight - Most Recent: 119 lb 11.2 oz I&O - Last 24 hours: Intake & Output 01/18/20 01/18/20 01/18/20 06:59 14:59 22:59 Intake Total 1914 Output Total 350 1050 Balance 1564 -1050 Lab Results - Last 24 hrs: Laboratory Results - last 24 hr 01/17/20 01/17/20 01/17/20 Range/Units 17:55 19:05 19:05 WBC 18.38 H (3.98-10.04) K/mm3 RBC 5.27 H (3.98-5.22) M/mm3 Hgb 15.8 H (11.2-15.7) gm/dl Hct 46.8 H (34.1-44.9) % MCV 88.8 D (79.4-94.8) fl MCH 30.0 (25.6-32.2) pg MCHC 33.8 (32.2-35.5) g/dl RDW Std Deviation 42.7 (36.4-46.3) fL Plt Count 209 (182-369) K/mm3 MPV 10.0 (9.4-12.3) fl Neut % (Auto) 90.0 H (34.0-71.1) % Lymph % (Auto) 4.5 L (19.3-51.7) % [place] % (Auto) 5.4 (4.7-12.5) % Eos % (Auto) 0 L (0.7-5.8) Baso % (Auto) 0.1 (0.1-1.2) % Neut # (Auto) 16.55 H (1.56-6.13) K/mm3 Lymph # (Auto) 0.82 L (1.18-3.74) K/mm3 [place] # (Auto) 0.99 H (0.24-0.36) K/mm3 Eos # (Auto) 0.00 L (0.04-0.36) K/mm3 Baso # (Auto) 0.02 (0.01-0.08) K/mm3 Manual Slide Review Abnormal smear PT (9.7-12.0) SECONDS INR APTT (22-31) SECONDS Puncture Site Rt radial ABG pH 7.19 L* (7.35-7.45) ABG pCO2 21.6 L (35.0-45.0) mmHg ABG pO2 87.0 (80.0-100.0) mmHg ABG HCO3 7.9 L (22.0-26.0) meq/L ABG O2 Saturation 95.3 L (96.0-97.0) % ABG Base Excess -19.3 L (-2-2.0) Darrell Test Positive VBG pH (7.30-7.40) A-a Gradient mmHg O2 Delivery Device Room air FiO2 0.00 L (21.00-100.00) % Sodium 136 (136-145) mEq/L Potassium 4.9 D (3.5-5.1) mEq/L Chloride 95 L (98-107) mEq/L Carbon Dioxide 9 L D (21-32) mEq/L Anion Gap 36.9 H (5-15) BUN 34 H (7-18) mg/dL Creatinine 1.9 H (0.55-1.02) mg/dL Est Cr Clr Drug Dosing 38.69 mL/min Estimated GFR (MDRD) 30 (>60) mL/min BUN/Creatinine Ratio 17.9 (14-18) Glucose 528 H* (74-106) mg/dL POC Glucose (70-105) mg/dL Hemoglobin A1c (4.50-6.20) % Lactic Acid (0.4-2.0) mmol/L Calcium 8.5 (8.5-10.1) mg/dL Magnesium (1.8-2.4) mg/dl Total Bilirubin 1.0 (0.2-1.0) mg/dL AST 13 L (15-37) U/L ALT 15 (14-59) U/L Alkaline Phosphatase 87 (46-116) U/L Total Protein 5.9 L (6.4-8.2) g/dl Albumin 3.0 L (3.4-5.0) g/dl Globulin 2.9 gm/dL Albumin/Globulin Ratio 1.0 (1-2) Lipase 26 L (73-393) U/L Urine Color (Yellow) Urine Appearance (Clear) Urine pH (5.0-8.0) Ur Specific [place] (1.005-1.030) Urine Protein (Negative) Urine Glucose (UA) (Negative) Urine Ketones (Negative) Urine Occult Blood (Negative) Urine Nitrite (Negative) Urine Bilirubin (Negative) Urine Urobilinogen (0.2-1.0) Ur Leukocyte Esterase (Negative) Urine RBC (0-5) /hpf Urine WBC (0-5) /hpf Ur Squamous Epith Cells (0-5) /hpf Urine Bacteria (FEW) /hpf Urine Mucus (FEW) /hpf Urine Yeast (Budding) (NOT SEEN) Urine Opiates Screen (AXZEFY=349) Ur Buprenorphine Scrn (CUTOFF=10) Ur Oxycodone Screen (PDI5YK=662) Urine Methadone Screen (SHYZXB=733) Ur Propoxyphene Screen (IRUDTQ=016) Ur Barbiturates Screen (YJKFCW=428) Ur Tricyclics Screen (PIKLEW=838) Ur Phencyclidine Scrn (CUTOFF=25) Ur Amphetamine Screen (WDFHXW=653) U Methamphetamines Scrn (RRUIDB=589) U Benzodiazepines Scrn (LWXJPM=924) U Cocaine Metab Screen (UQSWXB=027) U Marijuana (THC) Screen (CUTOFF=50) Ketones (0.0-0.3) mM 01/17/20 01/17/20 01/17/20 Range/Units 19:05 20:00 20:00 WBC (3.98-10.04) K/mm3 RBC (3.98-5.22) M/mm3 Hgb (11.2-15.7) gm/dl Hct (34.1-44.9) % MCV (79.4-94.8) fl MCH (25.6-32.2) pg MCHC (32.2-35.5) g/dl RDW Std Deviation (36.4-46.3) fL Plt Count (182-369) K/mm3 MPV (9.4-12.3) fl Neut % (Auto) (34.0-71.1) % Lymph % (Auto) (19.3-51.7) % [place] % (Auto) (4.7-12.5) % Eos % (Auto) (0.7-5.8) Baso % (Auto) (0.1-1.2) % Neut # (Auto) (1.56-6.13) K/mm3 Lymph # (Auto) (1.18-3.74) K/mm3 [place] # (Auto) (0.24-0.36) K/mm3 Eos # (Auto) (0.04-0.36) K/mm3 Baso # (Auto) (0.01-0.08) K/mm3 Manual Slide Review PT (9.7-12.0) SECONDS INR APTT (22-31) SECONDS Puncture Site ABG pH (7.35-7.45) ABG pCO2 (35.0-45.0) mmHg ABG pO2 (80.0-100.0) mmHg ABG HCO3 (22.0-26.0) meq/L ABG O2 Saturation (96.0-97.0) % ABG Base Excess (-2-2.0) Darrell Test VBG pH (7.30-7.40) A-a Gradient mmHg O2 Delivery Device FiO2 (21.00-100.00) % Sodium (136-145) mEq/L Potassium (3.5-5.1) mEq/L Chloride (98-107) mEq/L Carbon Dioxide (21-32) mEq/L Anion Gap (5-15) BUN (7-18) mg/dL Creatinine (0.55-1.02) mg/dL Est Cr Clr Drug Dosing mL/min Estimated GFR (MDRD) (>60) mL/min BUN/Creatinine Ratio (14-18) Glucose (74-106) mg/dL POC Glucose (70-105) mg/dL Hemoglobin A1c (4.50-6.20) % Lactic Acid 3.4 H* (0.4-2.0) mmol/L Calcium (8.5-10.1) mg/dL Magnesium (1.8-2.4) mg/dl Total Bilirubin (0.2-1.0) mg/dL AST (15-37) U/L ALT (14-59) U/L Alkaline Phosphatase (46-116) U/L Total Protein (6.4-8.2) g/dl Albumin (3.4-5.0) g/dl Globulin gm/dL Albumin/Globulin Ratio (1-2) Lipase (73-393) U/L Urine Color Yellow (Yellow) Urine Appearance Clear (Clear) Urine pH 5.5 (5.0-8.0) Ur Specific [place] 1.025 (1.005-1.030) Urine Protein 1+ H (Negative) Urine Glucose (UA) 2+ H (Negative) Urine Ketones 4+ H (Negative) Urine Occult Blood Trace-lysed H (Negative) Urine Nitrite Negative (Negative) Urine Bilirubin 1+ H (Negative) Urine Urobilinogen 0.2 (0.2-1.0) Ur Leukocyte Esterase Negative (Negative) Urine RBC 0-5 (0-5) /hpf Urine WBC 0-5 (0-5) /hpf Ur Squamous Epith Cells 5-10 H (0-5) /hpf Urine Bacteria Few (FEW) /hpf Urine Mucus Few (FEW) /hpf Urine Yeast (Budding) Few H (NOT SEEN) Urine Opiates Screen Negative (CSKQEC=720) Ur Buprenorphine Scrn Presumptive positive (CUTOFF=10) Ur Oxycodone Screen Negative (GXR6JM=505) Urine Methadone Screen Negative (FJQPTT=850) Ur Propoxyphene Screen Negative (DHOGVX=630) Ur Barbiturates Screen Negative (PVMRSI=759) Ur Tricyclics Screen Negative (JZPGGP=802) Ur Phencyclidine Scrn Negative (CUTOFF=25) Ur Amphetamine Screen Negative (QJPVUH=520) U Methamphetamines Scrn Negative (GAFSJR=999) U Benzodiazepines Scrn Negative (CRFTBS=840) U Cocaine Metab Screen Negative (CUFMAZ=121) U Marijuana (THC) Screen Presumptive positive H (CUTOFF=50) Ketones (0.0-0.3) mM 01/17/20 01/17/20 01/17/20 Range/Units 20:05 20:05 21:55 WBC (3.98-10.04) K/mm3 RBC (3.98-5.22) M/mm3 Hgb (11.2-15.7) gm/dl Hct (34.1-44.9) % MCV (79.4-94.8) fl MCH (25.6-32.2) pg MCHC (32.2-35.5) g/dl RDW Std Deviation (36.4-46.3) fL Plt Count (182-369) K/mm3 MPV (9.4-12.3) fl Neut % (Auto) (34.0-71.1) % Lymph % (Auto) (19.3-51.7) % [place] % (Auto) (4.7-12.5) % Eos % (Auto) (0.7-5.8) Baso % (Auto) (0.1-1.2) % Neut # (Auto) (1.56-6.13) K/mm3 Lymph # (Auto) (1.18-3.74) K/mm3 [place] # (Auto) (0.24-0.36) K/mm3 Eos # (Auto) (0.04-0.36) K/mm3 Baso # (Auto) (0.01-0.08) K/mm3 Manual Slide Review PT 10.9 (9.7-12.0) SECONDS INR 1.00 APTT 26 (22-31) SECONDS Puncture Site ABG pH (7.35-7.45) ABG pCO2 (35.0-45.0) mmHg ABG pO2 (80.0-100.0) mmHg ABG HCO3 (22.0-26.0) meq/L ABG O2 Saturation (96.0-97.0) % ABG Base Excess (-2-2.0) Darrell Test VBG pH (7.30-7.40) A-a Gradient mmHg O2 Delivery Device FiO2 (21.00-100.00) % Sodium 139 (136-145) mEq/L Potassium 4.7 (3.5-5.1) mEq/L Chloride 99 (98-107) mEq/L Carbon Dioxide 12 L (21-32) mEq/L Anion Gap 32.7 H (5-15) BUN 32 H (7-18) mg/dL Creatinine 1.7 H (0.55-1.02) mg/dL Est Cr Clr Drug Dosing 39.59 mL/min Estimated GFR (MDRD) 34 (>60) mL/min BUN/Creatinine Ratio 18.8 H (14-18) Glucose 424 H (74-106) mg/dL POC Glucose (70-105) mg/dL Hemoglobin A1c (4.50-6.20) % Lactic Acid (0.4-2.0) mmol/L Calcium 8.3 L (8.5-10.1) mg/dL Magnesium 1.8 (1.8-2.4) mg/dl Total Bilirubin (0.2-1.0) mg/dL AST (15-37) U/L ALT (14-59) U/L Alkaline Phosphatase (46-116) U/L Total Protein (6.4-8.2) g/dl Albumin (3.4-5.0) g/dl Globulin gm/dL Albumin/Globulin Ratio (1-2) Lipase (73-393) U/L Urine Color (Yellow) Urine Appearance (Clear) Urine pH (5.0-8.0) Ur Specific [place] (1.005-1.030) Urine Protein (Negative) Urine Glucose (UA) (Negative) Urine Ketones (Negative) Urine Occult Blood (Negative) Urine Nitrite (Negative) Urine Bilirubin (Negative) Urine Urobilinogen (0.2-1.0) Ur Leukocyte Esterase (Negative) Urine RBC (0-5) /hpf Urine WBC (0-5) /hpf Ur Squamous Epith Cells (0-5) /hpf Urine Bacteria (FEW) /hpf Urine Mucus (FEW) /hpf Urine Yeast (Budding) (NOT SEEN) Urine Opiates Screen (MNBEVV=550) Ur Buprenorphine Scrn (CUTOFF=10) Ur Oxycodone Screen (YKC2AT=746) Urine Methadone Screen (YCQKHG=820) Ur Propoxyphene Screen (AAXTLQ=771) Ur Barbiturates Screen (FJLDYS=582) Ur Tricyclics Screen (QSPVIX=826) Ur Phencyclidine Scrn (CUTOFF=25) Ur Amphetamine Screen (LYJIWD=108) U Methamphetamines Scrn (PLZUTZ=734) U Benzodiazepines Scrn (AMCYVJ=982) U Cocaine Metab Screen (ZMBDFG=633) U Marijuana (THC) Screen (CUTOFF=50) Ketones 1.62 (0.0-0.3) mM 01/17/20 01/17/20 01/17/20 Range/Units 21:55 22:25 23:06 WBC (3.98-10.04) K/mm3 RBC (3.98-5.22) M/mm3 Hgb 15.9 H (11.2-15.7) gm/dl Hct 48.7 H (34.1-44.9) % MCV (79.4-94.8) fl MCH (25.6-32.2) pg MCHC (32.2-35.5) g/dl RDW Std Deviation (36.4-46.3) fL Plt Count (182-369) K/mm3 MPV (9.4-12.3) fl Neut % (Auto) (34.0-71.1) % Lymph % (Auto) (19.3-51.7) % [place] % (Auto) (4.7-12.5) % Eos % (Auto) (0.7-5.8) Baso % (Auto) (0.1-1.2) % Neut # (Auto) (1.56-6.13) K/mm3 Lymph # (Auto) (1.18-3.74) K/mm3 [place] # (Auto) (0.24-0.36) K/mm3 Eos # (Auto) (0.04-0.36) K/mm3 Baso # (Auto) (0.01-0.08) K/mm3 Manual Slide Review PT (9.7-12.0) SECONDS INR APTT (22-31) SECONDS Puncture Site Lt radial ABG pH 7.13 L* (7.35-7.45) ABG pCO2 28.8 L (35.0-45.0) mmHg ABG pO2 87.0 (80.0-100.0) mmHg ABG HCO3 9.1 L (22.0-26.0) meq/L ABG O2 Saturation 95.2 L (96.0-97.0) % ABG Base Excess -19.2 L (-2-2.0) Darrell Test Positive VBG pH (7.30-7.40) A-a Gradient 28 mmHg O2 Delivery Device Room air FiO2 21.00 (21.00-100.00) % Sodium (136-145) mEq/L Potassium (3.5-5.1) mEq/L Chloride (98-107) mEq/L Carbon Dioxide (21-32) mEq/L Anion Gap (5-15) BUN (7-18) mg/dL Creatinine (0.55-1.02) mg/dL Est Cr Clr Drug Dosing mL/min Estimated GFR (MDRD) (>60) mL/min BUN/Creatinine Ratio (14-18) Glucose (74-106) mg/dL POC Glucose (70-105) mg/dL Hemoglobin A1c (4.50-6.20) % Lactic Acid 2.6 H* (0.4-2.0) mmol/L Calcium (8.5-10.1) mg/dL Magnesium (1.8-2.4) mg/dl Total Bilirubin (0.2-1.0) mg/dL AST (15-37) U/L ALT (14-59) U/L Alkaline Phosphatase (46-116) U/L Total Protein (6.4-8.2) g/dl Albumin (3.4-5.0) g/dl Globulin gm/dL Albumin/Globulin Ratio (1-2) Lipase (73-393) U/L Urine Color (Yellow) Urine Appearance (Clear) Urine pH (5.0-8.0) Ur Specific [place] (1.005-1.030) Urine Protein (Negative) Urine Glucose (UA) (Negative) Urine Ketones (Negative) Urine Occult Blood (Negative) Urine Nitrite (Negative) Urine Bilirubin (Negative) Urine Urobilinogen (0.2-1.0) Ur Leukocyte Esterase (Negative) Urine RBC (0-5) /hpf Urine WBC (0-5) /hpf Ur Squamous Epith Cells (0-5) /hpf Urine Bacteria (FEW) /hpf Urine Mucus (FEW) /hpf Urine Yeast (Budding) (NOT SEEN) Urine Opiates Screen (YFFMRB=787) Ur Buprenorphine Scrn (CUTOFF=10) Ur Oxycodone Screen (MGP7NY=717) Urine Methadone Screen (KLIXHJ=465) Ur Propoxyphene Screen (SXSNRT=042) Ur Barbiturates Screen (XFMOSY=145) Ur Tricyclics Screen (TMEZRM=184) Ur Phencyclidine Scrn (CUTOFF=25) Ur Amphetamine Screen (ZJVVKA=777) U Methamphetamines Scrn (UMWGPU=758) U Benzodiazepines Scrn (JEUXHO=294) U Cocaine Metab Screen (CQHLXN=123) U Marijuana (THC) Screen (CUTOFF=50) Ketones (0.0-0.3) mM 01/17/20 01/18/20 01/18/20 Range/Units 23:35 00:44 01:49 WBC (3.98-10.04) K/mm3 RBC (3.98-5.22) M/mm3 Hgb (11.2-15.7) gm/dl Hct (34.1-44.9) % MCV (79.4-94.8) fl MCH (25.6-32.2) pg MCHC (32.2-35.5) g/dl RDW Std Deviation (36.4-46.3) fL Plt Count (182-369) K/mm3 MPV (9.4-12.3) fl Neut % (Auto) (34.0-71.1) % Lymph % (Auto) (19.3-51.7) % [place] % (Auto) (4.7-12.5) % Eos % (Auto) (0.7-5.8) Baso % (Auto) (0.1-1.2) % Neut # (Auto) (1.56-6.13) K/mm3 Lymph # (Auto) (1.18-3.74) K/mm3 [place] # (Auto) (0.24-0.36) K/mm3 Eos # (Auto) (0.04-0.36) K/mm3 Baso # (Auto) (0.01-0.08) K/mm3 Manual Slide Review PT (9.7-12.0) SECONDS INR APTT (22-31) SECONDS Puncture Site ABG pH (7.35-7.45) ABG pCO2 (35.0-45.0) mmHg ABG pO2 (80.0-100.0) mmHg ABG HCO3 (22.0-26.0) meq/L ABG O2 Saturation (96.0-97.0) % ABG Base Excess (-2-2.0) Darrell Test VBG pH (7.30-7.40) A-a Gradient mmHg O2 Delivery Device FiO2 (21.00-100.00) % Sodium (136-145) mEq/L Potassium (3.5-5.1) mEq/L Chloride (98-107) mEq/L Carbon Dioxide (21-32) mEq/L Anion Gap (5-15) BUN (7-18) mg/dL Creatinine (0.55-1.02) mg/dL Est Cr Clr Drug Dosing mL/min Estimated GFR (MDRD) (>60) mL/min BUN/Creatinine Ratio (14-18) Glucose (74-106) mg/dL POC Glucose 293 H 239 H 207 H (70-105) mg/dL Hemoglobin A1c (4.50-6.20) % Lactic Acid (0.4-2.0) mmol/L Calcium (8.5-10.1) mg/dL Magnesium (1.8-2.4) mg/dl Total Bilirubin (0.2-1.0) mg/dL AST (15-37) U/L ALT (14-59) U/L Alkaline Phosphatase (46-116) U/L Total Protein (6.4-8.2) g/dl Albumin (3.4-5.0) g/dl Globulin gm/dL Albumin/Globulin Ratio (1-2) Lipase (73-393) U/L Urine Color (Yellow) Urine Appearance (Clear) Urine pH (5.0-8.0) Ur Specific [place] (1.005-1.030) Urine Protein (Negative) Urine Glucose (UA) (Negative) Urine Ketones (Negative) Urine Occult Blood (Negative) Urine Nitrite (Negative) Urine Bilirubin (Negative) Urine Urobilinogen (0.2-1.0) Ur Leukocyte Esterase (Negative) Urine RBC (0-5) /hpf Urine WBC (0-5) /hpf Ur Squamous Epith Cells (0-5) /hpf Urine Bacteria (FEW) /hpf Urine Mucus (FEW) /hpf Urine Yeast (Budding) (NOT SEEN) Urine Opiates Screen (VQHKOE=234) Ur Buprenorphine Scrn (CUTOFF=10) Ur Oxycodone Screen (BBG4MA=037) Urine Methadone Screen (UGYCDT=040) Ur Propoxyphene Screen (CWOWGE=415) Ur Barbiturates Screen (POJXGG=264) Ur Tricyclics Screen (TOAMAX=370) Ur Phencyclidine Scrn (CUTOFF=25) Ur Amphetamine Screen (ACCTFK=185) U Methamphetamines Scrn (EMGINY=553) U Benzodiazepines Scrn (HALMJR=219) U Cocaine Metab Screen (OQTLWH=628) U Marijuana (THC) Screen (CUTOFF=50) Ketones (0.0-0.3) mM 01/18/20 01/18/20 01/18/20 Range/Units 02:00 02:03 02:03 WBC (3.98-10.04) K/mm3 RBC (3.98-5.22) M/mm3 Hgb (11.2-15.7) gm/dl Hct (34.1-44.9) % MCV (79.4-94.8) fl MCH (25.6-32.2) pg MCHC (32.2-35.5) g/dl RDW Std Deviation (36.4-46.3) fL Plt Count (182-369) K/mm3 MPV (9.4-12.3) fl Neut % (Auto) (34.0-71.1) % Lymph % (Auto) (19.3-51.7) % [place] % (Auto) (4.7-12.5) % Eos % (Auto) (0.7-5.8) Baso % (Auto) (0.1-1.2) % Neut # (Auto) (1.56-6.13) K/mm3 Lymph # (Auto) (1.18-3.74) K/mm3 [place] # (Auto) (0.24-0.36) K/mm3 Eos # (Auto) (0.04-0.36) K/mm3 Baso # (Auto) (0.01-0.08) K/mm3 Manual Slide Review PT (9.7-12.0) SECONDS INR APTT (22-31) SECONDS Puncture Site ABG pH (7.35-7.45) ABG pCO2 (35.0-45.0) mmHg ABG pO2 (80.0-100.0) mmHg ABG HCO3 (22.0-26.0) meq/L ABG O2 Saturation (96.0-97.0) % ABG Base Excess (-2-2.0) Darrell Test VBG pH 7.24 L (7.30-7.40) A-a Gradient mmHg O2 Delivery Device FiO2 (21.00-100.00) % Sodium 138 (136-145) mEq/L Potassium 4.3 (3.5-5.1) mEq/L Chloride 105 (98-107) mEq/L Carbon Dioxide 18 L (21-32) mEq/L Anion Gap 19.3 H (5-15) BUN 26 H (7-18) mg/dL Creatinine 1.4 H (0.55-1.02) mg/dL Est Cr Clr Drug Dosing 48.07 mL/min Estimated GFR (MDRD) 43 (>60) mL/min BUN/Creatinine Ratio 18.6 H (14-18) Glucose 222 H (74-106) mg/dL POC Glucose (70-105) mg/dL Hemoglobin A1c (4.50-6.20) % Lactic Acid 1.0 (0.4-2.0) mmol/L Calcium 7.5 L (8.5-10.1) mg/dL Magnesium (1.8-2.4) mg/dl Total Bilirubin (0.2-1.0) mg/dL AST (15-37) U/L ALT (14-59) U/L Alkaline Phosphatase (46-116) U/L Total Protein (6.4-8.2) g/dl Albumin (3.4-5.0) g/dl Globulin gm/dL Albumin/Globulin Ratio (1-2) Lipase (73-393) U/L Urine Color (Yellow) Urine Appearance (Clear) Urine pH (5.0-8.0) Ur Specific [place] (1.005-1.030) Urine Protein (Negative) Urine Glucose (UA) (Negative) Urine Ketones (Negative) Urine Occult Blood (Negative) Urine Nitrite (Negative) Urine Bilirubin (Negative) Urine Urobilinogen (0.2-1.0) Ur Leukocyte Esterase (Negative) Urine RBC (0-5) /hpf Urine WBC (0-5) /hpf Ur Squamous Epith Cells (0-5) /hpf Urine Bacteria (FEW) /hpf Urine Mucus (FEW) /hpf Urine Yeast (Budding) (NOT SEEN) Urine Opiates Screen (DIFMIU=556) Ur Buprenorphine Scrn (CUTOFF=10) Ur Oxycodone Screen (VBJ3XE=481) Urine Methadone Screen (GBLAYO=366) Ur Propoxyphene Screen (FOFNYF=489) Ur Barbiturates Screen (PBXRMG=473) Ur Tricyclics Screen (ERHINH=429) Ur Phencyclidine Scrn (CUTOFF=25) Ur Amphetamine Screen (IOWXNV=522) U Methamphetamines Scrn (NLYVQZ=066) U Benzodiazepines Scrn (GBFVFG=814) U Cocaine Metab Screen (OZUIQR=730) U Marijuana (THC) Screen (CUTOFF=50) Ketones (0.0-0.3) mM 01/18/20 01/18/20 01/18/20 Range/Units 02:51 03:42 04:44 WBC (3.98-10.04) K/mm3 RBC (3.98-5.22) M/mm3 Hgb (11.2-15.7) gm/dl Hct (34.1-44.9) % MCV (79.4-94.8) fl MCH (25.6-32.2) pg MCHC (32.2-35.5) g/dl RDW Std Deviation (36.4-46.3) fL Plt Count (182-369) K/mm3 MPV (9.4-12.3) fl Neut % (Auto) (34.0-71.1) % Lymph % (Auto) (19.3-51.7) % [place] % (Auto) (4.7-12.5) % Eos % (Auto) (0.7-5.8) Baso % (Auto) (0.1-1.2) % Neut # (Auto) (1.56-6.13) K/mm3 Lymph # (Auto) (1.18-3.74) K/mm3 [place] # (Auto) (0.24-0.36) K/mm3 Eos # (Auto) (0.04-0.36) K/mm3 Baso # (Auto) (0.01-0.08) K/mm3 Manual Slide Review PT (9.7-12.0) SECONDS INR APTT (22-31) SECONDS Puncture Site ABG pH (7.35-7.45) ABG pCO2 (35.0-45.0) mmHg ABG pO2 (80.0-100.0) mmHg ABG HCO3 (22.0-26.0) meq/L ABG O2 Saturation (96.0-97.0) % ABG Base Excess (-2-2.0) Darrell Test VBG pH (7.30-7.40) A-a Gradient mmHg O2 Delivery Device FiO2 (21.00-100.00) % Sodium (136-145) mEq/L Potassium (3.5-5.1) mEq/L Chloride (98-107) mEq/L Carbon Dioxide (21-32) mEq/L Anion Gap (5-15) BUN (7-18) mg/dL Creatinine (0.55-1.02) mg/dL Est Cr Clr Drug Dosing mL/min Estimated GFR (MDRD) (>60) mL/min BUN/Creatinine Ratio (14-18) Glucose (74-106) mg/dL POC Glucose 206 H 176 H 199 H (70-105) mg/dL Hemoglobin A1c (4.50-6.20) % Lactic Acid (0.4-2.0) mmol/L Calcium (8.5-10.1) mg/dL Magnesium (1.8-2.4) mg/dl Total Bilirubin (0.2-1.0) mg/dL AST (15-37) U/L ALT (14-59) U/L Alkaline Phosphatase (46-116) U/L Total Protein (6.4-8.2) g/dl Albumin (3.4-5.0) g/dl Globulin gm/dL Albumin/Globulin Ratio (1-2) Lipase (73-393) U/L Urine Color (Yellow) Urine Appearance (Clear) Urine pH (5.0-8.0) Ur Specific [place] (1.005-1.030) Urine Protein (Negative) Urine Glucose (UA) (Negative) Urine Ketones (Negative) Urine Occult Blood (Negative) Urine Nitrite (Negative) Urine Bilirubin (Negative) Urine Urobilinogen (0.2-1.0) Ur Leukocyte Esterase (Negative) Urine RBC (0-5) /hpf Urine WBC (0-5) /hpf Ur Squamous Epith Cells (0-5) /hpf Urine Bacteria (FEW) /hpf Urine Mucus (FEW) /hpf Urine Yeast (Budding) (NOT SEEN) Urine Opiates Screen (PPUSKL=258) Ur Buprenorphine Scrn (CUTOFF=10) Ur Oxycodone Screen (UAQ3KJ=911) Urine Methadone Screen (FTNXEI=197) Ur Propoxyphene Screen (IWNXXP=498) Ur Barbiturates Screen (MLMPOH=330) Ur Tricyclics Screen (RNRQKO=667) Ur Phencyclidine Scrn (CUTOFF=25) Ur Amphetamine Screen (ECUVRV=882) U Methamphetamines Scrn (UCGVLD=500) U Benzodiazepines Scrn (GYUHPV=569) U Cocaine Metab Screen (XDJCPZ=824) U Marijuana (THC) Screen (CUTOFF=50) Ketones (0.0-0.3) mM 01/18/20 01/18/20 01/18/20 Range/Units 05:54 05:58 06:00 WBC (3.98-10.04) K/mm3 RBC (3.98-5.22) M/mm3 Hgb (11.2-15.7) gm/dl Hct (34.1-44.9) % MCV (79.4-94.8) fl MCH (25.6-32.2) pg MCHC (32.2-35.5) g/dl RDW Std Deviation (36.4-46.3) fL Plt Count (182-369) K/mm3 MPV (9.4-12.3) fl Neut % (Auto) (34.0-71.1) % Lymph % (Auto) (19.3-51.7) % [place] % (Auto) (4.7-12.5) % Eos % (Auto) (0.7-5.8) Baso % (Auto) (0.1-1.2) % Neut # (Auto) (1.56-6.13) K/mm3 Lymph # (Auto) (1.18-3.74) K/mm3 [place] # (Auto) (0.24-0.36) K/mm3 Eos # (Auto) (0.04-0.36) K/mm3 Baso # (Auto) (0.01-0.08) K/mm3 Manual Slide Review PT (9.7-12.0) SECONDS INR APTT (22-31) SECONDS Puncture Site ABG pH (7.35-7.45) ABG pCO2 (35.0-45.0) mmHg ABG pO2 (80.0-100.0) mmHg ABG HCO3 (22.0-26.0) meq/L ABG O2 Saturation (96.0-97.0) % ABG Base Excess (-2-2.0) Darrell Test VBG pH 7.27 L (7.30-7.40) A-a Gradient mmHg O2 Delivery Device FiO2 (21.00-100.00) % Sodium 137 (136-145) mEq/L Potassium 4.4 (3.5-5.1) mEq/L Chloride 105 (98-107) mEq/L Carbon Dioxide 21 (21-32) mEq/L Anion Gap 15.4 H (5-15) BUN 21 H (7-18) mg/dL Creatinine 1.2 H (0.55-1.02) mg/dL Est Cr Clr Drug Dosing 59.51 mL/min Estimated GFR (MDRD) 51 (>60) mL/min BUN/Creatinine Ratio 17.5 (14-18) Glucose 234 H (74-106) mg/dL POC Glucose 220 H (70-105) mg/dL Hemoglobin A1c (4.50-6.20) % Lactic Acid (0.4-2.0) mmol/L Calcium 7.6 L (8.5-10.1) mg/dL Magnesium (1.8-2.4) mg/dl Total Bilirubin (0.2-1.0) mg/dL AST (15-37) U/L ALT (14-59) U/L Alkaline Phosphatase (46-116) U/L Total Protein (6.4-8.2) g/dl Albumin (3.4-5.0) g/dl Globulin gm/dL Albumin/Globulin Ratio (1-2) Lipase (73-393) U/L Urine Color (Yellow) Urine Appearance (Clear) Urine pH (5.0-8.0) Ur Specific [place] (1.005-1.030) Urine Protein (Negative) Urine Glucose (UA) (Negative) Urine Ketones (Negative) Urine Occult Blood (Negative) Urine Nitrite (Negative) Urine Bilirubin (Negative) Urine Urobilinogen (0.2-1.0) Ur Leukocyte Esterase (Negative) Urine RBC (0-5) /hpf Urine WBC (0-5) /hpf Ur Squamous Epith Cells (0-5) /hpf Urine Bacteria (FEW) /hpf Urine Mucus (FEW) /hpf Urine Yeast (Budding) (NOT SEEN) Urine Opiates Screen (GHSWQP=498) Ur Buprenorphine Scrn (CUTOFF=10) Ur Oxycodone Screen (CPR5XD=224) Urine Methadone Screen (VYLGGT=877) Ur Propoxyphene Screen (UJQIIM=324) Ur Barbiturates Screen (FHFWIN=578) Ur Tricyclics Screen (XWUOCF=042) Ur Phencyclidine Scrn (CUTOFF=25) Ur Amphetamine Screen (KLBEPY=622) U Methamphetamines Scrn (GNODTE=804) U Benzodiazepines Scrn (RYEQMR=819) U Cocaine Metab Screen (KNILVD=270) U Marijuana (THC) Screen (CUTOFF=50) Ketones (0.0-0.3) mM 01/18/20 01/18/20 01/18/20 Range/Units 06:00 06:49 08:05 WBC (3.98-10.04) K/mm3 RBC (3.98-5.22) M/mm3 Hgb (11.2-15.7) gm/dl Hct (34.1-44.9) % MCV (79.4-94.8) fl MCH (25.6-32.2) pg MCHC (32.2-35.5) g/dl RDW Std Deviation (36.4-46.3) fL Plt Count (182-369) K/mm3 MPV (9.4-12.3) fl Neut % (Auto) (34.0-71.1) % Lymph % (Auto) (19.3-51.7) % [place] % (Auto) (4.7-12.5) % Eos % (Auto) (0.7-5.8) Baso % (Auto) (0.1-1.2) % Neut # (Auto) (1.56-6.13) K/mm3 Lymph # (Auto) (1.18-3.74) K/mm3 [place] # (Auto) (0.24-0.36) K/mm3 Eos # (Auto) (0.04-0.36) K/mm3 Baso # (Auto) (0.01-0.08) K/mm3 Manual Slide Review PT (9.7-12.0) SECONDS INR APTT (22-31) SECONDS Puncture Site ABG pH (7.35-7.45) ABG pCO2 (35.0-45.0) mmHg ABG pO2 (80.0-100.0) mmHg ABG HCO3 (22.0-26.0) meq/L ABG O2 Saturation (96.0-97.0) % ABG Base Excess (-2-2.0) Darrell Test VBG pH (7.30-7.40) A-a Gradient mmHg O2 Delivery Device FiO2 (21.00-100.00) % Sodium (136-145) mEq/L Potassium (3.5-5.1) mEq/L Chloride (98-107) mEq/L Carbon Dioxide (21-32) mEq/L Anion Gap (5-15) BUN (7-18) mg/dL Creatinine (0.55-1.02) mg/dL Est Cr Clr Drug Dosing mL/min Estimated GFR (MDRD) (>60) mL/min BUN/Creatinine Ratio (14-18) Glucose (74-106) mg/dL POC Glucose 241 H 240 H (70-105) mg/dL Hemoglobin A1c (4.50-6.20) % Lactic Acid (0.4-2.0) mmol/L Calcium (8.5-10.1) mg/dL Magnesium 1.5 L (1.8-2.4) mg/dl Total Bilirubin (0.2-1.0) mg/dL AST (15-37) U/L ALT (14-59) U/L Alkaline Phosphatase (46-116) U/L Total Protein (6.4-8.2) g/dl Albumin (3.4-5.0) g/dl Globulin gm/dL Albumin/Globulin Ratio (1-2) Lipase (73-393) U/L Urine Color (Yellow) Urine Appearance (Clear) Urine pH (5.0-8.0) Ur Specific [place] (1.005-1.030) Urine Protein (Negative) Urine Glucose (UA) (Negative) Urine Ketones (Negative) Urine Occult Blood (Negative) Urine Nitrite (Negative) Urine Bilirubin (Negative) Urine Urobilinogen (0.2-1.0) Ur Leukocyte Esterase (Negative) Urine RBC (0-5) /hpf Urine WBC (0-5) /hpf Ur Squamous Epith Cells (0-5) /hpf Urine Bacteria (FEW) /hpf Urine Mucus (FEW) /hpf Urine Yeast (Budding) (NOT SEEN) Urine Opiates Screen (QWSDBZ=209) Ur Buprenorphine Scrn (CUTOFF=10) Ur Oxycodone Screen (RWP0NK=175) Urine Methadone Screen (LVNFKW=037) Ur Propoxyphene Screen (EPCGKH=603) Ur Barbiturates Screen (LSLLBB=538) Ur Tricyclics Screen (SBUJMF=031) Ur Phencyclidine Scrn (CUTOFF=25) Ur Amphetamine Screen (SDZAJH=602) U Methamphetamines Scrn (VTWDMI=804) U Benzodiazepines Scrn (QQOAVT=311) U Cocaine Metab Screen (GXWMAZ=095) U Marijuana (THC) Screen (CUTOFF=50) Ketones (0.0-0.3) mM 01/18/20 01/18/20 01/18/20 Range/Units 09:19 09:58 10:30 WBC (3.98-10.04) K/mm3 RBC (3.98-5.22) M/mm3 Hgb (11.2-15.7) gm/dl Hct (34.1-44.9) % MCV (79.4-94.8) fl MCH (25.6-32.2) pg MCHC (32.2-35.5) g/dl RDW Std Deviation (36.4-46.3) fL Plt Count (182-369) K/mm3 MPV (9.4-12.3) fl Neut % (Auto) (34.0-71.1) % Lymph % (Auto) (19.3-51.7) % [place] % (Auto) (4.7-12.5) % Eos % (Auto) (0.7-5.8) Baso % (Auto) (0.1-1.2) % Neut # (Auto) (1.56-6.13) K/mm3 Lymph # (Auto) (1.18-3.74) K/mm3 [place] # (Auto) (0.24-0.36) K/mm3 Eos # (Auto) (0.04-0.36) K/mm3 Baso # (Auto) (0.01-0.08) K/mm3 Manual Slide Review PT (9.7-12.0) SECONDS INR APTT (22-31) SECONDS Puncture Site ABG pH (7.35-7.45) ABG pCO2 (35.0-45.0) mmHg ABG pO2 (80.0-100.0) mmHg ABG HCO3 (22.0-26.0) meq/L ABG O2 Saturation (96.0-97.0) % ABG Base Excess (-2-2.0) Darrell Test VBG pH (7.30-7.40) A-a Gradient mmHg O2 Delivery Device FiO2 (21.00-100.00) % Sodium 134 L (136-145) mEq/L Potassium 3.8 (3.5-5.1) mEq/L Chloride 103 (98-107) mEq/L Carbon Dioxide 19 L (21-32) mEq/L Anion Gap 15.8 H (5-15) BUN 18 (7-18) mg/dL Creatinine 1.3 H (0.55-1.02) mg/dL Est Cr Clr Drug Dosing 51.77 mL/min Estimated GFR (MDRD) 47 (>60) mL/min BUN/Creatinine Ratio 13.8 L (14-18) Glucose 213 H (74-106) mg/dL POC Glucose 205 H 236 H (70-105) mg/dL Hemoglobin A1c (4.50-6.20) % Lactic Acid (0.4-2.0) mmol/L Calcium 8.2 L (8.5-10.1) mg/dL Magnesium (1.8-2.4) mg/dl Total Bilirubin (0.2-1.0) mg/dL AST (15-37) U/L ALT (14-59) U/L Alkaline Phosphatase (46-116) U/L Total Protein (6.4-8.2) g/dl Albumin (3.4-5.0) g/dl Globulin gm/dL Albumin/Globulin Ratio (1-2) Lipase (73-393) U/L Urine Color (Yellow) Urine Appearance (Clear) Urine pH (5.0-8.0) Ur Specific [place] (1.005-1.030) Urine Protein (Negative) Urine Glucose (UA) (Negative) Urine Ketones (Negative) Urine Occult Blood (Negative) Urine Nitrite (Negative) Urine Bilirubin (Negative) Urine Urobilinogen (0.2-1.0) Ur Leukocyte Esterase (Negative) Urine RBC (0-5) /hpf Urine WBC (0-5) /hpf Ur Squamous Epith Cells (0-5) /hpf Urine Bacteria (FEW) /hpf Urine Mucus (FEW) /hpf Urine Yeast (Budding) (NOT SEEN) Urine Opiates Screen (ONAPNM=226) Ur Buprenorphine Scrn (CUTOFF=10) Ur Oxycodone Screen (LXH1SF=382) Urine Methadone Screen (ZGNZWY=720) Ur Propoxyphene Screen (EXVAQJ=106) Ur Barbiturates Screen (YDHBJQ=348) Ur Tricyclics Screen (PTHIVN=453) Ur Phencyclidine Scrn (CUTOFF=25) Ur Amphetamine Screen (WNVJHD=417) U Methamphetamines Scrn (IYZPGH=435) U Benzodiazepines Scrn (HLJZTV=734) U Cocaine Metab Screen (DTGLDL=853) U Marijuana (THC) Screen (CUTOFF=50) Ketones (0.0-0.3) mM 01/18/20 01/18/20 01/18/20 Range/Units 11:02 12:09 13:11 WBC (3.98-10.04) K/mm3 RBC (3.98-5.22) M/mm3 Hgb (11.2-15.7) gm/dl Hct (34.1-44.9) % MCV (79.4-94.8) fl MCH (25.6-32.2) pg MCHC (32.2-35.5) g/dl RDW Std Deviation (36.4-46.3) fL Plt Count (182-369) K/mm3 MPV (9.4-12.3) fl Neut % (Auto) (34.0-71.1) % Lymph % (Auto) (19.3-51.7) % [place] % (Auto) (4.7-12.5) % Eos % (Auto) (0.7-5.8) Baso % (Auto) (0.1-1.2) % Neut # (Auto) (1.56-6.13) K/mm3 Lymph # (Auto) (1.18-3.74) K/mm3 [place] # (Auto) (0.24-0.36) K/mm3 Eos # (Auto) (0.04-0.36) K/mm3 Baso # (Auto) (0.01-0.08) K/mm3 Manual Slide Review PT (9.7-12.0) SECONDS INR APTT (22-31) SECONDS Puncture Site ABG pH (7.35-7.45) ABG pCO2 (35.0-45.0) mmHg ABG pO2 (80.0-100.0) mmHg ABG HCO3 (22.0-26.0) meq/L ABG O2 Saturation (96.0-97.0) % ABG Base Excess (-2-2.0) Darrell Test VBG pH (7.30-7.40) A-a Gradient mmHg O2 Delivery Device FiO2 (21.00-100.00) % Sodium (136-145) mEq/L Potassium (3.5-5.1) mEq/L Chloride (98-107) mEq/L Carbon Dioxide (21-32) mEq/L Anion Gap (5-15) BUN (7-18) mg/dL Creatinine (0.55-1.02) mg/dL Est Cr Clr Drug Dosing mL/min Estimated GFR (MDRD) (>60) mL/min BUN/Creatinine Ratio (14-18) Glucose (74-106) mg/dL POC Glucose 212 H 196 H 154 H (70-105) mg/dL Hemoglobin A1c (4.50-6.20) % Lactic Acid (0.4-2.0) mmol/L Calcium (8.5-10.1) mg/dL Magnesium (1.8-2.4) mg/dl Total Bilirubin (0.2-1.0) mg/dL AST (15-37) U/L ALT (14-59) U/L Alkaline Phosphatase (46-116) U/L Total Protein (6.4-8.2) g/dl Albumin (3.4-5.0) g/dl Globulin gm/dL Albumin/Globulin Ratio (1-2) Lipase (73-393) U/L Urine Color (Yellow) Urine Appearance (Clear) Urine pH (5.0-8.0) Ur Specific [place] (1.005-1.030) Urine Protein (Negative) Urine Glucose (UA) (Negative) Urine Ketones (Negative) Urine Occult Blood (Negative) Urine Nitrite (Negative) Urine Bilirubin (Negative) Urine Urobilinogen (0.2-1.0) Ur Leukocyte Esterase (Negative) Urine RBC (0-5) /hpf Urine WBC (0-5) /hpf Ur Squamous Epith Cells (0-5) /hpf Urine Bacteria (FEW) /hpf Urine Mucus (FEW) /hpf Urine Yeast (Budding) (NOT SEEN) Urine Opiates Screen (CEFTUZ=842) Ur Buprenorphine Scrn (CUTOFF=10) Ur Oxycodone Screen (OHN3BX=518) Urine Methadone Screen (UFPWWP=754) Ur Propoxyphene Screen (YGLSMT=433) Ur Barbiturates Screen (CCLWTM=530) Ur Tricyclics Screen (QCATVH=735) Ur Phencyclidine Scrn (CUTOFF=25) Ur Amphetamine Screen (YBXKWO=596) U Methamphetamines Scrn (UAWZDZ=273) U Benzodiazepines Scrn (FJGQBB=086) U Cocaine Metab Screen (ROXMIS=218) U Marijuana (THC) Screen (CUTOFF=50) Ketones (0.0-0.3) mM 01/18/20 01/18/20 01/18/20 Range/Units 13:52 13:52 14:10 WBC (3.98-10.04) K/mm3 RBC (3.98-5.22) M/mm3 Hgb (11.2-15.7) gm/dl Hct (34.1-44.9) % MCV (79.4-94.8) fl MCH (25.6-32.2) pg MCHC (32.2-35.5) g/dl RDW Std Deviation (36.4-46.3) fL Plt Count (182-369) K/mm3 MPV (9.4-12.3) fl Neut % (Auto) (34.0-71.1) % Lymph % (Auto) (19.3-51.7) % [place] % (Auto) (4.7-12.5) % Eos % (Auto) (0.7-5.8) Baso % (Auto) (0.1-1.2) % Neut # (Auto) (1.56-6.13) K/mm3 Lymph # (Auto) (1.18-3.74) K/mm3 [place] # (Auto) (0.24-0.36) K/mm3 Eos # (Auto) (0.04-0.36) K/mm3 Baso # (Auto) (0.01-0.08) K/mm3 Manual Slide Review PT (9.7-12.0) SECONDS INR APTT (22-31) SECONDS Puncture Site ABG pH (7.35-7.45) ABG pCO2 (35.0-45.0) mmHg ABG pO2 (80.0-100.0) mmHg ABG HCO3 (22.0-26.0) meq/L ABG O2 Saturation (96.0-97.0) % ABG Base Excess (-2-2.0) Darrell Test VBG pH (7.30-7.40) A-a Gradient mmHg O2 Delivery Device FiO2 (21.00-100.00) % Sodium 135 L (136-145) mEq/L Potassium 4.7 (3.5-5.1) mEq/L Chloride 105 (98-107) mEq/L Carbon Dioxide 21 (21-32) mEq/L Anion Gap 13.7 (5-15) BUN 15 (7-18) mg/dL Creatinine 1.2 H (0.55-1.02) mg/dL Est Cr Clr Drug Dosing 56.09 mL/min Estimated GFR (MDRD) 51 (>60) mL/min BUN/Creatinine Ratio 12.5 L (14-18) Glucose 145 H (74-106) mg/dL POC Glucose 160 H (70-105) mg/dL Hemoglobin A1c 10.20 H (4.50-6.20) % Lactic Acid (0.4-2.0) mmol/L Calcium 8.2 L (8.5-10.1) mg/dL Magnesium (1.8-2.4) mg/dl Total Bilirubin (0.2-1.0) mg/dL AST (15-37) U/L ALT (14-59) U/L Alkaline Phosphatase (46-116) U/L Total Protein (6.4-8.2) g/dl Albumin (3.4-5.0) g/dl Globulin gm/dL Albumin/Globulin Ratio (1-2) Lipase (73-393) U/L Urine Color (Yellow) Urine Appearance (Clear) Urine pH (5.0-8.0) Ur Specific [place] (1.005-1.030) Urine Protein (Negative) Urine Glucose (UA) (Negative) Urine Ketones (Negative) Urine Occult Blood (Negative) Urine Nitrite (Negative) Urine Bilirubin (Negative) Urine Urobilinogen (0.2-1.0) Ur Leukocyte Esterase (Negative) Urine RBC (0-5) /hpf Urine WBC (0-5) /hpf Ur Squamous Epith Cells (0-5) /hpf Urine Bacteria (FEW) /hpf Urine Mucus (FEW) /hpf Urine Yeast (Budding) (NOT SEEN) Urine Opiates Screen (OFKJJE=302) Ur Buprenorphine Scrn (CUTOFF=10) Ur Oxycodone Screen (DQN0HH=817) Urine Methadone Screen (EVJDPF=407) Ur Propoxyphene Screen (WEWBDD=305) Ur Barbiturates Screen (TGALGH=856) Ur Tricyclics Screen (EUYDLE=609) Ur Phencyclidine Scrn (CUTOFF=25) Ur Amphetamine Screen (YJCDMK=254) U Methamphetamines Scrn (QCGVBB=759) U Benzodiazepines Scrn (FPIUWU=325) U Cocaine Metab Screen (AGDSXC=124) U Marijuana (THC) Screen (CUTOFF=50) Ketones (0.0-0.3) mM 01/18/20 01/18/20 Range/Units 15:03 15:36 WBC (3.98-10.04) K/mm3 RBC (3.98-5.22) M/mm3 Hgb (11.2-15.7) gm/dl Hct (34.1-44.9) % MCV (79.4-94.8) fl MCH (25.6-32.2) pg MCHC (32.2-35.5) g/dl RDW Std Deviation (36.4-46.3) fL Plt Count (182-369) K/mm3 MPV (9.4-12.3) fl Neut % (Auto) (34.0-71.1) % Lymph % (Auto) (19.3-51.7) % [place] % (Auto) (4.7-12.5) % Eos % (Auto) (0.7-5.8) Baso % (Auto) (0.1-1.2) % Neut # (Auto) (1.56-6.13) K/mm3 Lymph # (Auto) (1.18-3.74) K/mm3 [place] # (Auto) (0.24-0.36) K/mm3 Eos # (Auto) (0.04-0.36) K/mm3 Baso # (Auto) (0.01-0.08) K/mm3 Manual Slide Review PT (9.7-12.0) SECONDS INR APTT (22-31) SECONDS Puncture Site ABG pH (7.35-7.45) ABG pCO2 (35.0-45.0) mmHg ABG pO2 (80.0-100.0) mmHg ABG HCO3 (22.0-26.0) meq/L ABG O2 Saturation (96.0-97.0) % ABG Base Excess (-2-2.0) Darrell Test VBG pH (7.30-7.40) A-a Gradient mmHg O2 Delivery Device FiO2 (21.00-100.00) % Sodium (136-145) mEq/L Potassium (3.5-5.1) mEq/L Chloride (98-107) mEq/L Carbon Dioxide (21-32) mEq/L Anion Gap (5-15) BUN (7-18) mg/dL Creatinine (0.55-1.02) mg/dL Est Cr Clr Drug Dosing mL/min Estimated GFR (MDRD) (>60) mL/min BUN/Creatinine Ratio (14-18) Glucose (74-106) mg/dL POC Glucose 127 H 118 H (70-105) mg/dL Hemoglobin A1c (4.50-6.20) % Lactic Acid (0.4-2.0) mmol/L Calcium (8.5-10.1) mg/dL Magnesium (1.8-2.4) mg/dl Total Bilirubin (0.2-1.0) mg/dL AST (15-37) U/L ALT (14-59) U/L Alkaline Phosphatase (46-116) U/L Total Protein (6.4-8.2) g/dl Albumin (3.4-5.0) g/dl Globulin gm/dL Albumin/Globulin Ratio (1-2) Lipase (73-393) U/L Urine Color (Yellow) Urine Appearance (Clear) Urine pH (5.0-8.0) Ur Specific [place] (1.005-1.030) Urine Protein (Negative) Urine Glucose (UA) (Negative) Urine Ketones (Negative) Urine Occult Blood (Negative) Urine Nitrite (Negative) Urine Bilirubin (Negative) Urine Urobilinogen (0.2-1.0) Ur Leukocyte Esterase (Negative) Urine RBC (0-5) /hpf Urine WBC (0-5) /hpf Ur Squamous Epith Cells (0-5) /hpf Urine Bacteria (FEW) /hpf Urine Mucus (FEW) /hpf Urine Yeast (Budding) (NOT SEEN) Urine Opiates Screen (NJRAJD=642) Ur Buprenorphine Scrn (CUTOFF=10) Ur Oxycodone Screen (XWS3BT=338) Urine Methadone Screen (ITZNLC=757) Ur Propoxyphene Screen (VVSKOD=340) Ur Barbiturates Screen (GTWZDW=211) Ur Tricyclics Screen (AAUIUU=555) Ur Phencyclidine Scrn (CUTOFF=25) Ur Amphetamine Screen (IIAFQH=557) U Methamphetamines Scrn (MEQTPJ=532) U Benzodiazepines Scrn (VHWXCC=852) U Cocaine Metab Screen (BQRDAL=313) U Marijuana (THC) Screen (CUTOFF=50) Ketones (0.0-0.3) mM Med Orders - Current: Current Medications Hydromorphone HCl (Dilaudid) 0.5 mg IVPUSH Q2H PRN PRN Reason: Pain Last Admin: 01/18/20 13:44 Dose: 0.5 mg Insulin Human Regular 100 unit (/ Sodium Chloride) 100 mls @ 6 mls/hr IV TITRATE [facility]ONIO; Protocol Last Titration: 01/18/20 13:24 Dose: 3 unit/hr, 3 mls/hr Potassium Chloride/Dextrose/Sod Cl (D5 1/2 Ns W/ 20 Meq/L Kcl) 1,000 mls @ 200 mls/hr IV ASDIRECTED TONIO Last Admin: 01/18/20 10:01 Dose: 150 mls/hr Insulin Glargine (Lantus) 20 unit SUBCUT DAILY [facility]ONIO Last Admin: 01/18/20 13:22 Dose: 20 units Insulin Human Lispro (Humalog) 2 unit SUBCUT TIDAC [facility] Insulin Human Lispro (Humalog) 0 unit SUBCUT QIDACANDBED [facility]; Protocol Miscellaneous Information (Remove Patch) 1 ea TRDERM DAILY [facility] Last Admin: 01/18/20 08:08 Dose: Not Given Nicotine (Habitrol) 21 mg TRDERM DAILY [facility] Last Admin: 01/18/20 08:07 Dose: 21 mg Ondansetron HCl (Zofran) 4 mg IVPUSH Q8H PRN PRN Reason: Nausea/Vomiting Last Admin: 01/18/20 05:49 Dose: 4 mg Pantoprazole Sodium (Protonix Iv) 40 mg IVPUSH Q12H [facility] Last Admin: 01/18/20 11:45 Dose: 40 mg Prochlorperazine Edisylate (Compazine) 10 mg IVPUSH Q8H PRN PRN Reason: Nausea/Vomiting Last Admin: 01/18/20 10:04 Dose: 10 mg Discontinued Medications Hydromorphone HCl (Dilaudid) 0.5 mg IVPUSH ONETIME ONE Stop: 01/17/20 18:26 Last Admin: 01/17/20 18:41 Dose: 0.5 mg Hydromorphone HCl (Dilaudid) 0.5 mg IVPUSH ONETIME ONE Stop: 01/17/20 20:02 Last Admin: 01/17/20 20:09 Dose: 0.5 mg Sodium Chloride (Normal Saline) 1,000 mls @ 999 mls/hr IV ASDIRECTED [facility] Last Admin: 01/17/20 18:02 Dose: 999 mls/hr Sodium Chloride (Normal Saline) 1,000 mls @ 999 mls/hr IV ASDIRECTED [facility] Last Admin: 01/17/20 18:41 Dose: 999 mls/hr Lactated Ringer's (Ringers, Lactated) 1,000 mls @ 999 mls/hr IV ASDIRECTED [facility] Last Admin: 01/17/20 20:09 Dose: 999 mls/hr Insulin Human Regular 100 unit (/ Sodium Chloride) 100 mls @ 6.12 mls/hr IV TITRATE [facility]; Protocol Last Admin: 01/17/20 20:17 Dose: 0.1 units/kg/hr, 6.12 mls/hr Potassium Chloride/Sodium Chloride (1/2 Ns With 20 Meq Kcl) 1,000 mls @ 250 mls /hr IV ASDIRECTED [facility] Last Admin: 01/18/20 02:57 Dose: 250 mls/hr Sodium Chloride (Normal Saline) 1,000 mls @ 999 mls/hr IV ONETIME ONE Stop: 01/17/20 23:29 Last Admin: 01/17/20 22:46 Dose: 999 mls/hr Magnesium Sulfate 4 gm/ Premix 50 mls @ 12.5 mls/hr IV ONETIME ONE Stop: 01/18/20 12:33 Last Admin: 01/18/20 09:01 Dose: 12.5 mls/hr Influenza Virus Vaccine (Fluzone Quad Syringe) 60 mcg IM .ONCE ONE Stop: 01/18/20 10:01 Last Admin: 01/18/20 10:19 Dose: Not Given Ondansetron HCl (Zofran) 4 mg IVPUSH ONETIME ONE Stop: 01/17/20 17:55 Last Admin: 01/17/20 17:59 Dose: 4 mg Pantoprazole Sodium (Protonix Iv) 80 mg IVPUSH BOLUS ONE Stop: 01/17/20 18:26 Last Admin: 01/17/20 18:42 Dose: 80 mg - Exam General: Reports: Alert, Oriented HEENT: Reports: Pupils Equal, Mucous Membr. Moist/[place] Neck: Reports: Supple Lungs: Reports: Clear to Auscultation, Normal Respiratory Effort Cardiovascular: Reports: Regular Rate, Regular Rhythm GI/Abdominal Exam: Normal Bowel Sounds, Soft, Non-Tender, No Distention Skin: Reports: Warm, Dry, Intact Psy/Mental Status: Reports: Alert, Normal Affect, Normal Mood
[2020-01-18] MEDS ORDERED: Insulin Lispro 100 Units/ML 3 ML Vial SUBCUT SCH ×2 (17:00)
== END 2020-01-18 16:55 | disposition home or self-care (01) | DRG 638 ==
LOC: JD.ED 17:13 → JD.ICU 20:20 → JD.ED 20:26
PROVIDERS: ADMIT Family Medicine; ATTEND Family Medicine
DX: E10.10 Type 1 diabetes mellitus with ketoacidosis without coma (principal); N17.9 Acute kidney failure, unspecified; E10.43 Type 1 diabetes mellitus with diabetic autonomic (poly)neuropathy; Z86.711 Personal history of pulmonary embolism; K58.9 Irritable bowel syndrome, unspecified; K31.84 Gastroparesis; G89.29 Other chronic pain; M54.9 Dorsalgia, unspecified; I10 Essential (primary) hypertension; K21.9 Gastro-esophageal reflux disease without esophagitis; E87.6 Hypokalemia; Z86.718 Personal history of other venous thrombosis and embolism; Z86.14 Personal history of Methicillin resistant Staphylococcus aureus infection; M19.90 Unspecified osteoarthritis, unspecified site; F41.9 Anxiety disorder, unspecified; Z88.6 Allergy status to analgesic agent; F32.9 Major depressive disorder, single episode, unspecified; F17.200 Nicotine dependence, unspecified, uncomplicated; Z79.4 Long term (current) use of insulin; Z79.899 Other long term (current) drug therapy; Z90.49 Acquired absence of other specified parts of digestive tract; Z91.040 Latex allergy status; Z88.5 Allergy status to narcotic agent
CPT/HCPCS: 36415; 36600; 80053; 80306; 81001; 82009; 82803; 83605; 83690; 85025; 85610; 85730; 93005; C9113; J1170 ×2; J1815; J2405; J7030 ×2; J7050; J7120; 80048; 82800; 82962; 83036; 83735; 85014; 85018; 90686; 96361; 96374; 96375; 96376; 99285-25; A9270-GY; J0780; J3475; J3480

== ENCOUNTER 2020-02-29 11:47 | Emergency (ER) | payer MEDICAID ==
[2020-02-29] MEDS ORDERED: Ondansetron 4 MG Tab.DIS PO ONE (12:12)
[2020-02-29] MEDS ORDERED: Sodium Chloride 0.9% 10 ML Syringe FLUSH PRN (12:13)
[2020-02-29] MEDS ORDERED: Sodium Chloride 0.9% 1,000 ML IV SCH (12:15)
[2020-02-29] MEDS ORDERED: Ondansetron 4 MG/2 ML SDV IVPUSH ONE (12:24)
[2020-02-29] MEDS ORDERED: HYDROmorphone 1 MG/ML Syringe IVPUSH ONE ×3 (12:26→20:17)
--- NOTE | 2020-02-29 12:39 | EDM.PDOC ---
ED HPI GENERAL MEDICAL PROBLEM - General Chief Complaint: Diabetic Complaint Stated Complaint: VOMITING BLOOD/HIGH BLOOD SUGAR Time Seen by Provider: 02/29/20 12:12 Source of Information: Reports: Patient, RN Notes Reviewed History Limitations: Reports: No Limitations - History of Present Illness INITIAL COMMENTS - FREE TEXT/NARRATIVE: Patient is a 34-year-old female who presents to the ED for the evaluation of ongoing nausea/vomiting and high blood sugars. Patient has diabetes, she states that she has been taking her diabetic medications as directed, but her blood sugars have been over 400 at home. Patient has a prescription for Compazine, but states that she ran out of this at home yesterday. She cannot resolve her symptoms at home. She is not been able to eat or drink much. She does note some blood in her vomitus as well. Patient is actively nauseous and vomiting at the time of triage. And her blood sugar was also over 400 at time of triage. 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 Patient states she has not been running any fevers, having any chills, shortness of breath, or chest pain at home. She states that she does have a headache from vomiting and some stomach pain. Patient's primary care provider is Cherri Canseco. Abdominal Pain Score (Numeric/FACES): 10 - Related Data Allergies Allergy/AdvReac Type Severity Reaction Status Date / Time latex Allergy Hives Verified 02/29/20 12:10 tramadol Allergy Hives Verified 02/29/20 12:10 purex laundry soap Allergy Hives Uncoded 02/29/20 12:56 Home Meds: Home Meds Insulin Aspart [Novolog Flexpen] See Protocol SUBCNJ TIDMEALS 01/05/18 [History] Insulin Degludec [Tresiba] 6 unit SQ DAILY 12/18/18 [History] Buprenorphine HCl/Naloxone HCl [Suboxone 4 mg-1 mg Sl Film] 12 mg PO ACBREAKFAST 05/13/19 [History] Pantoprazole [ProTONIX] 20 mg PO DAILY 07/30/19 [History] Promethazine [Phenergan] 25 mg PO Q4H PRN #20 tab 12/11/19 [Rx] Buprenorphine HCl/Naloxone HCl [Buprenorp-Nalox 8-2 mg Sl Film] 8 mg SL ACDINNER 02/29/20 [History] Promethazine [Phenergan] 25 mg PO Q4H PRN #20 tab 02/29/20 [Rx] Past Medical History HEENT History: Reports: Other (See Below) Other HEENT History: dysphagia Cardiovascular History: Reports: Hypertension Respiratory History: Reports: PE Gastrointestinal History: Reports: Chronic Diarrhea, GERD, Irritable Bowel Syndrome Other Gastrointestinal History: diarrhea, nausea, LLQ pain 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 History: Reports: Acute Renal Failure LAST CODE STRIPER History: Reports: Endometriosis, Other LAST CODE STRIPER History: amenorrhea Musculoskeletal History: Reports: Arthritis, Back Pain, Chronic Other Musculoskeletal History: chronic pain Neurological History: Reports: Headaches, Chronic, Migraines, Seizure Other Neuro History: Diabetic seizure Psychiatric History: Reports: Anxiety, Depression Other Psychiatric History: drug use history Endocrine/Metabolic History: Reports: Diabetes, Type I, Hypokalemia Other Endocrine/Metabolic History: hypokalemia Hematologic History: Reports: Blood Transfusion(s) Other Hematologic History: blood clotting disorder, DVT Other Immunologic History: risk for HIV from IV drug use, MRSA Dermatologic History: Reports: Eczema, Psoriasis - Infectious Disease History Infectious Disease History: Reports: MRSA Other Infectious Disease History: MRSA-2 yrs ago - Past Surgical History GI Surgical History: Reports: Cholecystectomy Other GI Surgeries/Procedures: ileostomy and closure, small bowel resection Social & Family History - Family History Family Medical History: Noncontributory - Tobacco Use Smoking Status *Q: Current Every Day Smoker Years of Tobacco use: 15 Packs/Tins Daily: 1 - Caffeine Use Caffeine Use: Reports: Soda Other Caffeine Use: drinks mellow yellow daily about 3 cans - Recreational Drug Use Recreational Drug Use: Yes Drug Use in Last 12 Months: Yes Recreational Drug Type: Reports: Marijuana/Hashish - Living Situation & Occupation Living situation: Reports: Single, with Family Occupation: Unemployed ED ROS GENERAL - Review of Systems Review Of Systems: See Below Constitutional: Denies: Fever, Chills Respiratory: Denies: Shortness of Breath, Cough, Sputum Cardiovascular: Denies: Chest Pain Endocrine: Reports: High Glucose (over 400 at home, and at triage) GI/Abdominal: Reports: Abdominal Pain (epigastrium and generalized abd tenderness), Hematemesis (streaks of blood in vomitus), Nausea, Vomiting. Denies: Constipation, Diarrhea Neurological: Reports: Headache ED EXAM GENERAL NO PERIP PULSE - Physical Exam Exam: See Below Exam Limited By: No Limitations General Appearance: Alert, WD/WN, No Apparent Distress (pt looks to be in pain, and does have a fruity odor to his breath) Eye Exam: Bilateral Eye: EOMI, Normal Inspection, PERRL Ears: Normal External Exam Nose: Normal Inspection Throat/Mouth: Normal Inspection, Normal Lips, Normal Teeth, Normal Gums, Normal Oropharynx, Normal Voice, No Airway Compromise Head: Atraumatic, Normocephalic Neck: Normal Inspection Respiratory/Chest: No Respiratory Distress, Lungs Clear, Normal Breath Sounds, No Accessory Muscle Use, Chest Non-Tender Cardiovascular: Normal Peripheral Pulses, Regular Rate, Rhythm, No Murmur GI/Abdominal: Normal Bowel Sounds, Soft, Tender (generalized, worse over epigastrium) Extremities: Normal Inspection, Normal Capillary Refill Neurological: Alert, Oriented, Normal Cognition, No Motor/Sensory Deficits Psychiatric: Normal Affect, Normal Mood Skin Exam: Warm, Dry, Intact, No Rash, Pallor (generalized) EKG INTERPRETATION EKG Date: 02/29/20 Time: 14:15 Rhythm: NSR Rate (Beats/Min): 86 [place]: Normal P-Wave: Present QRS: Normal ST-T: Depressed (1mm depression, no T wave abnormalities) QT: Normal EKG Interpretation Comments: Reviewed with Dr. Bean. No acute ischemia noted. Course - Vital Signs Last Recorded V/S: Last Vital Signs Temp 100.2 F 02/29/20 17:25 Pulse 91 02/29/20 17:25 Resp 16 02/29/20 17:25 BP 99/64 02/29/20 17:25 Pulse Ox 96 02/29/20 17:25 - Orders/Labs/Meds Orders: Active Orders 24 hr Category Date Time Status Blood Glucose Check, Bedside [RC] STAT Care 02/29/20 12:13 Inactive Communication Order [RC] STAT Care 02/29/20 12:13 Active EKG Documentation Completion [RC] STAT Care 02/29/20 13:50 Active Glucose [Blood Glucose Check, Bedside] [RC] Q1HR Care 02/29/20 14:34 Ordered Peripheral IV Care [RC] . DIRECTED Care 02/29/20 12:13 Active CULTURE BLOOD [BC] Stat Lab 02/29/20 12:40 Received CULTURE BLOOD [BC] Stat Lab 02/29/20 13:00 Received Dextrose 5%-Lactated Ringers 1,000 ml Med 02/29/20 17:57 Active IV ASDIRECTED Insulin Regular, Human [HumuLIN R] 100 unit Med 02/29/20 14:00 Active Sodium Chloride 0.9% [Normal Saline] 99 ml IV TITRATE Sodium Chloride 0.9% [Normal Saline] 1,000 ml Med 02/29/20 12:15 Active IV ASDIRECTED Sodium Chloride 0.9% [Saline Flush] Med 02/29/20 12:13 Active 10 ml FLUSH ASDIRECTED PRN Blood Culture x2 Reflex Set [OM.PC] Stat Oth 02/29/20 12:13 Ordered Peripheral IV Insertion Adult [OM.PC] Stat Oth 02/29/20 12:13 Ordered Medication Orders Sodium Chloride (Normal Saline) 1,000 mls @ 999 mls/hr IV ASDIRECTED TONIO Last Admin: 02/29/20 12:48 Dose: 999 mls/hr Insulin Human Regular 100 unit (/ Sodium Chloride) 100 mls @ 16.32 mls/hr IV TITRATE TONIO; Protocol Last Titration: 02/29/20 18:10 Dose: 0.3 units/kg/hr, 16.32 mls/hr Admin: 02/29/20 15:05 Dose: 0.1 units/kg/hr, 5.44 mls/hr Dextrose/Lactated Ringer's (Dextrose 5%-Lactated Ringers) 1,000 mls @ 250 mls/ hr IV ASDIRECTED TONIO Last Admin: 02/29/20 18:10 Dose: 250 mls/hr Sodium Chloride (Saline Flush) 10 ml FLUSH ASDIRECTED PRN PRN Reason: Keep Vein Open Last Admin: 02/29/20 12:40 Dose: 10 ml Labs: Laboratory Tests 02/29/20 02/29/20 02/29/20 Range/Units 12:40 12:40 12:40 WBC 12.42 H (3.98-10.04) K/mm3 RBC 5.07 (3.98-5.22) M/mm3 Hgb 15.3 D (11.2-15.7) gm/dl Hct 45.2 H (34.1-44.9) % MCV 89.2 D (79.4-94.8) fl MCH 30.2 (25.6-32.2) pg MCHC 33.8 (32.2-35.5) g/dl RDW Std Deviation 43.4 (36.4-46.3) fL Plt Count 232 (182-369) K/mm3 MPV 10.4 (9.4-12.3) fl Neut % (Auto) 82.1 H (34.0-71.1) % Lymph % (Auto) 13.7 L (19.3-51.7) % [place] % (Auto) 3.9 L (4.7-12.5) % Eos % (Auto) 0 L (0.7-5.8) Baso % (Auto) 0.1 (0.1-1.2) % Neut # (Auto) 10.20 H (1.56-6.13) K/mm3 Lymph # (Auto) 1.70 (1.18-3.74) K/mm3 [place] # (Auto) 0.48 H (0.24-0.36) K/mm3 Eos # (Auto) 0.00 L (0.04-0.36) K/mm3 Baso # (Auto) 0.01 (0.01-0.08) K/mm3 Puncture Site ABG pH (7.35-7.45) ABG pCO2 (35.0-45.0) mmHg ABG pO2 (80.0-100.0) mmHg ABG HCO3 (22.0-26.0) meq/L ABG O2 Saturation (96.0-97.0) % ABG Base Excess (-2-2.0) Darrell Test A-a Gradient mmHg O2 Delivery Device FiO2 (21.00-100.00) % Sodium 142 (136-145) mEq/L Potassium 5.7 H D (3.5-5.1) mEq/L Chloride 100 (98-107) mEq/L Carbon Dioxide 24 (21-32) mEq/L Anion Gap 23.7 H (5-15) BUN 21 H (7-18) mg/dL Creatinine 1.4 H (0.55-1.02) mg/dL Est Cr Clr Drug Dosing 48.19 mL/min Estimated GFR (MDRD) 43 (>60) mL/min BUN/Creatinine Ratio 15.0 (14-18) Glucose 493 H (74-106) mg/dL POC Glucose (70-105) mg/dL Calcium 10.1 D (8.5-10.1) mg/dL Phosphorus 5.2 H (2.6-4.7) mg/dL Magnesium 1.9 (1.8-2.4) mg/dl Total Bilirubin 0.7 (0.2-1.0) mg/dL AST 22 (15-37) U/L ALT 42 (14-59) U/L Alkaline Phosphatase 109 (46-116) U/L Total Protein 7.4 (6.4-8.2) g/dl Albumin 4.2 (3.4-5.0) g/dl Globulin 3.2 gm/dL Albumin/Globulin Ratio 1.3 (1-2) Lipase (73-393) U/L Urine Color (Yellow) Urine Appearance (Clear) Urine pH (5.0-8.0) Ur Specific [place] (1.005-1.030) Urine Protein (Negative) Urine Glucose (UA) (Negative) Urine Ketones (Negative) Urine Occult Blood (Negative) Urine Nitrite (Negative) Urine Bilirubin (Negative) Urine Urobilinogen (0.2-1.0) Ur Leukocyte Esterase (Negative) Urine RBC (0-5) /hpf Urine WBC (0-5) /hpf Ur Squamous Epith Cells (0-5) /hpf Urine Bacteria (FEW) /hpf Urine Mucus (FEW) /hpf Ketones 5.0 (0.0-0.3) mM 02/29/20 02/29/20 02/29/20 Range/Units 12:40 13:50 15:10 WBC (3.98-10.04) K/mm3 RBC (3.98-5.22) M/mm3 Hgb (11.2-15.7) gm/dl Hct (34.1-44.9) % MCV (79.4-94.8) fl MCH (25.6-32.2) pg MCHC (32.2-35.5) g/dl RDW Std Deviation (36.4-46.3) fL Plt Count (182-369) K/mm3 MPV (9.4-12.3) fl Neut % (Auto) (34.0-71.1) % Lymph % (Auto) (19.3-51.7) % [place] % (Auto) (4.7-12.5) % Eos % (Auto) (0.7-5.8) Baso % (Auto) (0.1-1.2) % Neut # (Auto) (1.56-6.13) K/mm3 Lymph # (Auto) (1.18-3.74) K/mm3 [place] # (Auto) (0.24-0.36) K/mm3 Eos # (Auto) (0.04-0.36) K/mm3 Baso # (Auto) (0.01-0.08) K/mm3 Puncture Site Lt radial ABG pH 7.41 (7.35-7.45) ABG pCO2 35.1 (35.0-45.0) mmHg ABG pO2 82.0 (80.0-100.0) mmHg ABG HCO3 21.7 L (22.0-26.0) meq/L ABG O2 Saturation 97.1 H (96.0-97.0) % ABG Base Excess -1.9 (-2-2.0) Darrell Test Positive A-a Gradient 24 mmHg O2 Delivery Device Room air FiO2 21.00 (21.00-100.00) % Sodium (136-145) mEq/L Potassium (3.5-5.1) mEq/L Chloride (98-107) mEq/L Carbon Dioxide (21-32) mEq/L Anion Gap (5-15) BUN (7-18) mg/dL Creatinine (0.55-1.02) mg/dL Est Cr Clr Drug Dosing mL/min Estimated GFR (MDRD) (>60) mL/min BUN/Creatinine Ratio (14-18) Glucose (74-106) mg/dL POC Glucose (70-105) mg/dL Calcium (8.5-10.1) mg/dL Phosphorus (2.6-4.7) mg/dL Magnesium (1.8-2.4) mg/dl Total Bilirubin (0.2-1.0) mg/dL AST (15-37) U/L ALT (14-59) U/L Alkaline Phosphatase (46-116) U/L Total Protein (6.4-8.2) g/dl Albumin (3.4-5.0) g/dl Globulin gm/dL Albumin/Globulin Ratio (1-2) Lipase 16 L (73-393) U/L Urine Color Light yellow (Yellow) Urine Appearance Clear (Clear) Urine pH 6.0 (5.0-8.0) Ur Specific [place] 1.020 (1.005-1.030) Urine Protein Trace H (Negative) Urine Glucose (UA) 2+ H (Negative) Urine Ketones 3+ H (Negative) Urine Occult Blood 2+ H (Negative) Urine Nitrite Negative (Negative) Urine Bilirubin 1+ H (Negative) Urine Urobilinogen 0.2 (0.2-1.0) Ur Leukocyte Esterase Negative (Negative) Urine RBC Not seen (0-5) /hpf Urine WBC Not seen (0-5) /hpf Ur Squamous Epith Cells 0-5 (0-5) /hpf Urine Bacteria Not seen (FEW) /hpf Urine Mucus Not seen (FEW) /hpf Ketones (0.0-0.3) mM 02/29/20 02/29/20 02/29/20 Range/Units 15:57 15:58 17:34 WBC (3.98-10.04) K/mm3 RBC (3.98-5.22) M/mm3 Hgb (11.2-15.7) gm/dl Hct (34.1-44.9) % MCV (79.4-94.8) fl MCH (25.6-32.2) pg MCHC (32.2-35.5) g/dl RDW Std Deviation (36.4-46.3) fL Plt Count (182-369) K/mm3 MPV (9.4-12.3) fl Neut % (Auto) (34.0-71.1) % Lymph % (Auto) (19.3-51.7) % [place] % (Auto) (4.7-12.5) % Eos % (Auto) (0.7-5.8) Baso % (Auto) (0.1-1.2) % Neut # (Auto) (1.56-6.13) K/mm3 Lymph # (Auto) (1.18-3.74) K/mm3 [place] # (Auto) (0.24-0.36) K/mm3 Eos # (Auto) (0.04-0.36) K/mm3 Baso # (Auto) (0.01-0.08) K/mm3 Puncture Site ABG pH (7.35-7.45) ABG pCO2 (35.0-45.0) mmHg ABG pO2 (80.0-100.0) mmHg ABG HCO3 (22.0-26.0) meq/L ABG O2 Saturation (96.0-97.0) % ABG Base Excess (-2-2.0) Darrell Test A-a Gradient mmHg O2 Delivery Device FiO2 (21.00-100.00) % Sodium 141 (136-145) mEq/L Potassium 5.1 (3.5-5.1) mEq/L Chloride 105 (98-107) mEq/L Carbon Dioxide 22 (21-32) mEq/L Anion Gap 19.1 H (5-15) BUN 19 H (7-18) mg/dL Creatinine 0.9 (0.55-1.02) mg/dL Est Cr Clr Drug Dosing 74.97 mL/min Estimated GFR (MDRD) > 60 (>60) mL/min BUN/Creatinine Ratio 21.1 H (14-18) Glucose 343 H (74-106) mg/dL POC Glucose 328 H 220 H (70-105) mg/dL Calcium 8.7 (8.5-10.1) mg/dL Phosphorus (2.6-4.7) mg/dL Magnesium (1.8-2.4) mg/dl Total Bilirubin (0.2-1.0) mg/dL AST (15-37) U/L ALT (14-59) U/L Alkaline Phosphatase (46-116) U/L Total Protein (6.4-8.2) g/dl Albumin (3.4-5.0) g/dl Globulin gm/dL Albumin/Globulin Ratio (1-2) Lipase (73-393) U/L Urine Color (Yellow) Urine Appearance (Clear) Urine pH (5.0-8.0) Ur Specific [place] (1.005-1.030) Urine Protein (Negative) Urine Glucose (UA) (Negative) Urine Ketones (Negative) Urine Occult Blood (Negative) Urine Nitrite (Negative) Urine Bilirubin (Negative) Urine Urobilinogen (0.2-1.0) Ur Leukocyte Esterase (Negative) Urine RBC (0-5) /hpf Urine WBC (0-5) /hpf Ur Squamous Epith Cells (0-5) /hpf Urine Bacteria (FEW) /hpf Urine Mucus (FEW) /hpf Ketones (0.0-0.3) mM 02/29/20 02/29/20 Range/Units 19:30 21:03 WBC (3.98-10.04) K/mm3 RBC (3.98-5.22) M/mm3 Hgb (11.2-15.7) gm/dl Hct (34.1-44.9) % MCV (79.4-94.8) fl MCH (25.6-32.2) pg MCHC (32.2-35.5) g/dl RDW Std Deviation (36.4-46.3) fL Plt Count (182-369) K/mm3 MPV (9.4-12.3) fl Neut % (Auto) (34.0-71.1) % Lymph % (Auto) (19.3-51.7) % [place] % (Auto) (4.7-12.5) % Eos % (Auto) (0.7-5.8) Baso % (Auto) (0.1-1.2) % Neut # (Auto) (1.56-6.13) K/mm3 Lymph # (Auto) (1.18-3.74) K/mm3 [place] # (Auto) (0.24-0.36) K/mm3 Eos # (Auto) (0.04-0.36) K/mm3 Baso # (Auto) (0.01-0.08) K/mm3 Puncture Site ABG pH (7.35-7.45) ABG pCO2 (35.0-45.0) mmHg ABG pO2 (80.0-100.0) mmHg ABG HCO3 (22.0-26.0) meq/L ABG O2 Saturation (96.0-97.0) % ABG Base Excess (-2-2.0) Darrell Test A-a Gradient mmHg O2 Delivery Device FiO2 (21.00-100.00) % Sodium (136-145) mEq/L Potassium (3.5-5.1) mEq/L Chloride (98-107) mEq/L Carbon Dioxide (21-32) mEq/L Anion Gap (5-15) BUN (7-18) mg/dL Creatinine (0.55-1.02) mg/dL Est Cr Clr Drug Dosing mL/min Estimated GFR (MDRD) (>60) mL/min BUN/Creatinine Ratio (14-18) Glucose (74-106) mg/dL POC Glucose 215 H 118 H (70-105) mg/dL Calcium (8.5-10.1) mg/dL Phosphorus (2.6-4.7) mg/dL Magnesium (1.8-2.4) mg/dl Total Bilirubin (0.2-1.0) mg/dL AST (15-37) U/L ALT (14-59) U/L Alkaline Phosphatase (46-116) U/L Total Protein (6.4-8.2) g/dl Albumin (3.4-5.0) g/dl Globulin gm/dL Albumin/Globulin Ratio (1-2) Lipase (73-393) U/L Urine Color (Yellow) Urine Appearance (Clear) Urine pH (5.0-8.0) Ur Specific [place] (1.005-1.030) Urine Protein (Negative) Urine Glucose (UA) (Negative) Urine Ketones (Negative) Urine Occult Blood (Negative) Urine Nitrite (Negative) Urine Bilirubin (Negative) Urine Urobilinogen (0.2-1.0) Ur Leukocyte Esterase (Negative) Urine RBC (0-5) /hpf Urine WBC (0-5) /hpf Ur Squamous Epith Cells (0-5) /hpf Urine Bacteria (FEW) /hpf Urine Mucus (FEW) /hpf Ketones (0.0-0.3) mM Meds: Medications Generic Name Dose Route Start Last Admin Trade Name Carlyle PRN Reason Stop Dose Admin Sodium Chloride 1,000 mls @ 999 mls/hr 02/29/20 12:15 02/29/20 12:48 Normal Saline IV 999 mls/hr ASDIRECTED TONIO Administration Insulin Human Regular 100 unit 100 mls @ 16.32 mls/hr 02/29/20 14:00 21:04 / Sodium Chloride IV 0.1 units/kg/hr TITRATE TONIO 5.44 mls/hr Titration Protocol 0.3 UNITS/KG/HR Dextrose/Lactated Ringer's 1,000 mls @ 250 mls/hr 02/29/20 17:57 02/29/20 18: 10 Dextrose 5%-Lactated Ringers IV 250 mls/hr ASDIRECTED TONIO Administration Sodium Chloride 10 ml 02/29/20 12:13 02/29/20 12:40 Saline Flush FLUSH 10 ml ASDIRECTED PRN Administration Keep Vein Open Discontinued Medications Generic Name Dose Route Start Last Admin Trade Name Freq PRN Reason Stop Dose Admin Hydromorphone HCl 1 mg 02/29/20 12:26 02/29/20 12:46 Dilaudid IVPUSH 02/29/20 12:27 1 mg ONETIME ONE Administration Hydromorphone HCl 1 mg 02/29/20 16:00 02/29/20 16:00 Dilaudid IVPUSH 02/29/20 16:01 1 mg ONETIME ONE Administration Hydromorphone HCl 1 mg 02/29/20 20:17 02/29/20 20:40 Dilaudid IVPUSH 02/29/20 20:18 1 mg ONETIME ONE Administration Promethazine HCl 25 mg/ Sodium 51 mls @ 100 mls/hr 02/29/20 13:54 02/29/20 14 :24 Chloride IV 02/29/20 14:24 100 mls/hr ONETIME ONE Administration Sodium Chloride 1,000 mls @ 999 mls/hr 02/29/20 13:56 02/29/20 14:00 Normal Saline IV 02/29/20 14:56 999 mls/hr ONETIME ONE Administration Lactated Ringer's 1,000 mls @ 500 mls/hr 02/29/20 17:25 Ringers, Lactated IV ASDIRECTED TONIO Promethazine HCl 25 mg/ Sodium 51 mls @ 100 mls/hr 02/29/20 19:34 02/29/20 20 :57 Chloride IV 02/29/20 20:04 100 mls/hr ONETIME ONE Administration Ondansetron HCl 4 mg 02/29/20 12:12 02/29/20 19:28 Zofran Odt PO 02/29/20 12:13 Not Given ONETIME ONE Ondansetron HCl 4 mg 02/29/20 12:24 02/29/20 12:44 Zofran IVPUSH 02/29/20 12:25 4 mg ONETIME ONE Administration - Re-Assessments/Exams Free Text/Narrative Re-Assessment/Exam: 02/29/20 12:41 Patient presents to the ED for evaluation of her vomiting and elevated blood sugars. Did order labs, fluids, Zofran and some Dilaudid for her pain management. 02/29/20 13:58 Laboratory evaluation has been coming back, ketones are elevated at 5.0. White blood cell count is mildly elevated at 12,000, patient's potassium is elevated 5.7, bicarb is normal at 24, anion gap is markedly elevated at 23.7, I did order some more labs including lipase, ABG, EKG, chest x-ray for further investigation of infection. Insulin drip has been ordered after talking with Dr. Bean regarding labs on this patient, he suggested doing the 0.1 units/kg/ h for blood sugar control. And believes patient will be best served in observation in ICU for further management. I did also order another bolus of IV fluids, and 25 mg Phenergan IV for nausea control patient is still having ongoing nausea. 02/29/20 15:28 The patient lipase is low, but not elevated which would not be consistent with pancreatitis. EKG shows sinus rhythm at this time no signs of hyperkalemic changes. Was reviewed with Dr. Bean. The patient's chest x-ray is also unremarkable. I do believe that the increased white blood cell count was likely due to a stress response in nature due to the patient's vomiting. Patient's nausea is under control at this time. But states she is still suffering from headache. The patient will require observation at least for management of her blood sugars as she is on insulin drip, it was made known to me that we have 3 very sick patients in the ICU on ventilators, and they are not admitting anyone to the ICU at this time. I did talk with Dr. Bean regarding this, and he feels comfortable helping me manage the patient in the ER , and charge nurse is also okay with this at this time. The patient does take Suboxone, has not been able to take this, hence she was requesting something more for pain as she cannot take her Suboxone here. 02/29/20 17:57 RN informs me that the patient's blood sugar is down to 220. I was discussing this with Dr. Bean earlier, and he states when the patient's blood sugar gets to around 250, that her insulin drip should be titrated up to 0.3 units/kg/ h, and she should be given D5 LR at 250 an hour, and then she can eat supper. I did put in orders to reflect this, and relayed this to nursing staff. It is likely that the patient will stay with us all night, to see if we can get the blood sugars to a manageable level, and discharge her home in the morning. 02/29/20 19:35 The patient's blood sugar was reported at 215, we will decrease insulin drip a little bit, to 0.2 units/kg/h, and continue to monitor her blood sugars every hour. Patient was nauseous again she will get another dose of Phenergan. 02/29/20 21:14 Patient's blood sugar has come down to 115. We will stop the insulin drip, and I did discuss with the patient if she would like to go home or stay here with some IV fluids, she would like to go home she will eat a meal and watch her blood sugars and take her insulin at home tomorrow as previously directed. I will give the patient a few tablets of Phenergan for home use, and discharge her general recommendations. Departure - Departure Time of Disposition: 20:48 Disposition: Home, Self-Care 01 Condition: Fair Clinical Impression: Hyperglycemia, Elevated blood ketone body level - Discharge Information *PRESCRIPTION DRUG MONITORING PROGRAM REVIEWED*: No *COPY OF PRESCRIPTION DRUG MONITORING REPORT IN PATIENT TANNER: No Prescriptions: Promethazine [Phenergan] 25 mg PO Q4H PRN #20 tab PRN Reason: Nausea Instructions: Hyperglycemia, [id number] Referrals: Fanta Canseco PA-C [Primary Care Provider] - Forms: ED Department Discharge Additional Instructions: You were evaluated in the ER today regarding your nausea/vomiting/blood sugars. You were given multiple bags of IV fluids, and some IV insulin, this did seem to help lower your blood sugar to an acceptable level for discharge home at this time. Recommend you go home and rest, and eat a few good meals, and start taking your insulin as previously prescribed tomorrow morning. You were given some Phenergan for home use, please use 1 tab every 4 hours as needed for further nausea relief. This was electronically prescribed to the [facility] located in the [employer] [facility] Recommend you check your blood sugar, at least 4 times daily and make sure that your blood sugar is over 140 before you go to bed tonight. Please return to the ED if your symptoms should change or worsen. Sepsis Event Note - Evaluation Sepsis Screening Result: No Definite Risk - Focused Exam Vital Signs: Vital Signs Temp Pulse Resp BP Pulse Ox 02/29/20 17:25 100.2 F 91 16 99/64 96 02/29/20 14:00 99.4 F 85 16 152/105 H 97 02/29/20 12:05 99.3 F 108 H 22 H 149/109 H 100 Date Exam was Performed: 02/29/20 Time Exam was Performed: 21:14 - My Orders Last 24 Hours: My Active Orders 02/29/20 12:13 Blood Glucose Check, Bedside [RC] STAT Communication Order [RC] STAT Peripheral IV Care [RC] . DIRECTED Sodium Chloride 0.9% [Saline Flush] 10 ml FLUSH ASDIRECTED PRN Blood Culture x2 Reflex Set [OM.PC] Stat Peripheral IV Insertion Adult [OM.PC] Stat 02/29/20 12:15 Sodium Chloride 0.9% [Normal Saline] 1,000 ml IV ASDIRECTED 02/29/20 12:40 CULTURE BLOOD [BC] Stat 02/29/20 13:00 CULTURE BLOOD [BC] Stat 02/29/20 13:50 EKG Documentation Completion [RC] STAT 02/29/20 14:00 Insulin Regular, Human [HumuLIN R] 100 unit Sodium Chloride 0.9% [Normal Saline] 99 ml IV TITRATE 02/29/20 14:34 Glucose [Blood Glucose Check, Bedside] [RC] Q1HR 02/29/20 17:57 Dextrose 5%-Lactated Ringers 1,000 ml IV ASDIRECTED - Assessment/Plan Last 24 Hours: My Active Orders 02/29/20 12:13 Blood Glucose Check, Bedside [RC] STAT Communication Order [RC] STAT Peripheral IV Care [RC] . DIRECTED Sodium Chloride 0.9% [Saline Flush] 10 ml FLUSH ASDIRECTED PRN Blood Culture x2 Reflex Set [OM.PC] Stat Peripheral IV Insertion Adult [OM.PC] Stat 02/29/20 12:15 Sodium Chloride 0.9% [Normal Saline] 1,000 ml IV ASDIRECTED 02/29/20 12:40 CULTURE BLOOD [BC] Stat 02/29/20 13:00 CULTURE BLOOD [BC] Stat 02/29/20 13:50 EKG Documentation Completion [RC] STAT 02/29/20 14:00 Insulin Regular, Human [HumuLIN R] 100 unit Sodium Chloride 0.9% [Normal Saline] 99 ml IV TITRATE 02/29/20 14:34 Glucose [Blood Glucose Check, Bedside] [] Q1HR 02/29/20 17:57 Dextrose 5%-Lactated Ringers 1,000 ml IV ASDIRECTED
[2020-02-29] MEDS ORDERED: Promethazine 25 MG in Sodium Chloride 0.9% 50 ML IV ONE ×2 (13:54→19:34)
[2020-02-29] MEDS ORDERED: Sodium Chloride 0.9% 1,000 ML IV ONE (13:56)
--- NOTE | 2020-02-29 14:38 | CR ---
Chest: Frontal view of the chest was obtained. Comparison: Prior chest x-ray of 01/31/20. Heart size and mediastinum are within normal limits. Lungs are clear with no acute parenchymal change. Bony structures are unremarkable. Surgical clips are seen from prior cholecystectomy. Impression: 1. Nothing acute is appreciated on 2 view chest x-ray. Diagnostic code #1 Study was dictated in MDT
[2020-02-29] MEDS ORDERED: Lactated Ringers 1,000 ML IV SCH (17:25)
[2020-02-29] MEDS ORDERED: Dextrose 5%-Lactated Ringers 1,000 ML IV SCH (17:57)
== END 2020-02-29 22:25 | disposition home or self-care (01) ==
LOC: JD.ED 11:47
DX: E10.65 Type 1 diabetes mellitus with hyperglycemia (principal); E71.32 Disorders of ketone metabolism; I10 Essential (primary) hypertension; K21.9 Gastro-esophageal reflux disease without esophagitis; M19.90 Unspecified osteoarthritis, unspecified site; F41.9 Anxiety disorder, unspecified; F32.9 Major depressive disorder, single episode, unspecified; Z86.718 Personal history of other venous thrombosis and embolism; F17.210 Nicotine dependence, cigarettes, uncomplicated; Z91.040 Latex allergy status; Z91.048 Other nonmedicinal substance allergy status; Z79.899 Other long term (current) drug therapy
CPT/HCPCS: 36415; 36600; 71046; 80048; 80053; 81001; 82009; 82803; 82962; 83690; 83735; 84100; 85025; 87040; 93005; 96361; 96365; 96366; 96375; 96376; 99285; J1170; J1815; J2405; J2550; J7030; J7050; J7121; 93010; 99284

== ENCOUNTER 2020-04-22 11:18 | Inpatient (IN) | payer MEDICAID ==
[2020-04-22] MEDS ORDERED: Sodium Chloride 0.9% 1,000 ML IV SCH (11:30)
--- NOTE | 2020-04-22 11:49 | EDM.PDOC ---
ED HPI GENERAL MEDICAL PROBLEM - General Chief Complaint: Diabetic Complaint Stated Complaint: [facility] Time Seen by Provider: 04/22/20 11:23 Source of Information: Reports: Patient, EMS, RN Notes Reviewed - History of Present Illness INITIAL COMMENTS - FREE TEXT/NARRATIVE: 34 yr old female has been brought in by [facility] with elevated glucose, weak, dizzy, vomiting confused. She has has of Type 1 diabetes. Not know when she last took insulin. Pt not giving any kind of reliable hx. Her brother placed the call for EMS help. She is known to be noncompliant with her diabetes control and also known to use drugs. No chest pain or difficulty breathing. No major distress on arrival to ED but not answering questions coherently. Became more agitated yelling, threshing arms and legs with attempts to get IV and lab work. - Related Data Allergies Allergy/AdvReac Type Severity Reaction Status Date / Time latex Allergy Severe Hives Verified 04/22/20 11:24 tramadol Allergy Severe Hives Verified 04/22/20 11:24 purex laundry soap Allergy Severe Hives Uncoded 04/22/20 11:24 Home Meds: Home Meds Insulin Aspart [Novolog Flexpen] See Protocol SUBCNJ TIDMEALS 01/05/18 [History] Insulin Degludec [Tresiba] 6 unit SQ DAILY 12/18/18 [History] Buprenorphine HCl/Naloxone HCl [Suboxone 4 mg-1 mg Sl Film] 12 mg PO ACBREAKFAST 05/13/19 [History] Buprenorphine HCl/Naloxone HCl [Buprenorp-Nalox 8-2 mg Sl Film] 8 mg SL ACDINNER 02/29/20 [History] Past Medical History HEENT History: Reports: Other (See Below) Other HEENT History: dysphagia Cardiovascular History: Reports: Hypertension Respiratory History: Reports: PE Gastrointestinal History: Reports: Chronic Diarrhea, GERD, Irritable Bowel Syndrome Other Gastrointestinal History: diarrhea, nausea, LLQ pain 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 History: Reports: Acute Renal Failure [employer] History: Reports: Endometriosis, Other [employer] History: amenorrhea Musculoskeletal History: Reports: Arthritis, Back Pain, Chronic Other Musculoskeletal History: chronic pain Neurological History: Reports: Headaches, Chronic, Migraines, Seizure Other Neuro History: Diabetic seizure Psychiatric History: Reports: Anxiety, Depression Other Psychiatric History: drug use history Endocrine/Metabolic History: Reports: Diabetes, Type I, Hypokalemia Other Endocrine/Metabolic History: hypokalemia Hematologic History: Reports: Blood Transfusion(s) Other Hematologic History: blood clotting disorder, DVT Other Immunologic History: 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 HIV from IV drug use, MRSA Dermatologic History: Reports: Eczema, Psoriasis - Infectious Disease History Infectious Disease History: Reports: MRSA Other Infectious Disease History: MRSA-2 yrs ago - Past Surgical History GI Surgical History: Reports: Cholecystectomy Other GI Surgeries/Procedures: ileostomy and closure, small bowel resection Social & Family History - Family History Family Medical History: Noncontributory - Tobacco Use Smoking Status *Q: Unknown Ever Smoked - Caffeine Use Caffeine Use: Reports: None Other Caffeine Use: drinks mellow yellow daily about 3 cans - Recreational Drug Use Recreational Drug Use: Yes Recreational Drug Type: Reports: Heroin - Living Situation & Occupation Living situation: Reports: Single, with Family Occupation: Unemployed ED ROS GENERAL - Review of Systems Review Of Systems: Unable To Obtain (Pt confused, incoherent) Reason Not Obtained: altered mental status ED EXAM GENERAL NO PERIP PULSE - Physical Exam Exam: See Below General Appearance: Alert, Anxious, Moderate Distress, Other (became more agitated after arrival with IV and blood draw attempts) Ears: Normal External Exam Nose: Normal Inspection Throat/Mouth: Other (oral mucosa very dry, no teeth) Head: Atraumatic Neck: Supple Respiratory/Chest: Respiratory Distress (mild tachypnea) Cardiovascular: Tachycardia (112 at time of my exam) GI/Abdominal: Soft, Non-Tender (track sunshine reported present prior to EMS attempts for IV) Extremities: No: Leg Pain, Increased Warmth, Redness Neurological: Other (confused, incoherent, not answering questions appropriately ) Skin Exam: Warm, Dry, Normal Color, No Rash EKG INTERPRETATION EKG Date: 04/22/20 Rhythm: Other (sinus tach, rate 113.) Isabella: Normal P-Wave: Present QRS: Normal ST-T: Normal Course - Vital Signs Last Recorded V/S: Last Vital Signs Temp 97.1 F 04/22/20 11:24 Pulse 107 H 04/22/20 16:36 Resp 16 04/22/20 16:36 BP 100/69 04/22/20 16:36 Pulse Ox 100 04/22/20 16:36 - Orders/Labs/Meds Orders: Active Orders 24 hr Category Date Time Status Blood Glucose Check, Bedside [] ONETIME Care 04/22/20 13:54 Active Blood Glucose Check, Bedside [] ONETIME Care 04/22/20 16:34 Active EKG 12 Lead [EKG Documentation Completion] [] STAT Care 04/22/20 11:31 Active EKG 12 Lead [EKG Documentation Completion] [] STAT Care 04/22/20 12:23 Active POC Glucose [Blood Glucose Check, Bedside] [] ONETIME Care 04/22/20 11:25 Active Peripheral IV Care [] . DIRECTED Care 04/22/20 11:26 Active Insulin Regular, Human [HumuLIN R] 100 unit Med 04/22/20 12:30 Active Sodium Chloride 0.9% [Normal Saline] 99 ml IV TITRATE Sodium Chloride 0.9% [Normal Saline] 1,000 ml Med 04/22/20 11:30 Active IV ONETIME Sodium Chloride 0.9% [Saline Flush] Med 04/22/20 11:25 Active 10 ml FLUSH ASDIRECTED PRN Peripheral IV Insertion Adult [OM.PC] Stat Oth 04/22/20 11:25 Ordered Medication Orders Sodium Chloride (Normal Saline) 1,000 mls @ 999 mls/hr IV ONETIME TONIO Last Admin: 04/22/20 12:14 Dose: 999 mls/hr Insulin Human Regular 100 unit (/ Sodium Chloride) 100 mls @ 3 mls/hr IV TITRATE TONIO; Protocol Last Admin: 04/22/20 12:52 Dose: 3 units/hr, 3 mls/hr Sodium Chloride (Saline Flush) 10 ml FLUSH ASDIRECTED PRN PRN Reason: Keep Vein Open Last Admin: 04/22/20 12:15 Dose: 10 ml Labs: Laboratory Tests 04/22/20 04/22/20 04/22/20 Range/Units 11:45 11:45 12:09 WBC (3.98-10.04) K/mm3 RBC (3.98-5.22) M/mm3 Hgb (11.2-15.7) gm/dl Hct (34.1-44.9) % MCV (79.4-94.8) fl MCH (25.6-32.2) pg MCHC (32.2-35.5) g/dl RDW Std Deviation (36.4-46.3) fL Plt Count (182-369) K/mm3 MPV (9.4-12.3) fl Neut % (Auto) (34.0-71.1) % Lymph % (Auto) (19.3-51.7) % Stearns % (Auto) (4.7-12.5) % Eos % (Auto) (0.7-5.8) Baso % (Auto) (0.1-1.2) % Neut # (Auto) (1.56-6.13) K/mm3 Lymph # (Auto) (1.18-3.74) K/mm3 Stearns # (Auto) (0.24-0.36) K/mm3 Eos # (Auto) (0.04-0.36) K/mm3 Baso # (Auto) (0.01-0.08) K/mm3 Manual Slide Review Puncture Site Lt radial ABG pH 6.93 L* (7.35-7.45) ABG pCO2 14.3 L* (35.0-45.0) mmHg ABG pO2 121.0 H (80.0-100.0) mmHg ABG HCO3 2.9 L (22.0-26.0) meq/L ABG O2 Saturation 96.0 (96.0-97.0) % ABG Base Excess -28.6 L (-2-2.0) Darrell Test Positive A-a Gradient 11 mmHg O2 Delivery Device Room air Oxygen Flow Rate 0.0 FiO2 21.00 (21.00-100.00) % Sodium (136-145) mEq/L Potassium (3.5-5.1) mEq/L Chloride (98-107) mEq/L Carbon Dioxide (21-32) mEq/L Anion Gap (5-15) BUN (7-18) mg/dL Creatinine (0.55-1.02) mg/dL Est Cr Clr Drug Dosing mL/min Estimated GFR (MDRD) (>60) mL/min BUN/Creatinine Ratio (14-18) Glucose (74-106) mg/dL Lactic Acid (0.4-2.0) mmol/L Calcium (8.5-10.1) mg/dL Total Bilirubin (0.2-1.0) mg/dL AST (15-37) U/L ALT (14-59) U/L Alkaline Phosphatase (46-116) U/L Total Protein (6.4-8.2) g/dl Albumin (3.4-5.0) g/dl Globulin gm/dL Albumin/Globulin Ratio (1-2) Urine Color Yellow (Yellow) Urine Appearance Clear (Clear) Urine pH 5.5 (5.0-8.0) Ur Specific [place] 1.020 (1.005-1.030) Urine Protein Negative (Negative) Urine Glucose (UA) 2+ H (Negative) Urine Ketones 3+ H (Negative) Urine Occult Blood Negative (Negative) Urine Nitrite Negative (Negative) Urine Bilirubin Negative (Negative) Urine Urobilinogen 0.2 (0.2-1.0) Ur Leukocyte Esterase Negative (Negative) Urine Opiates Screen Negative (UUEYRA=161) Ur Buprenorphine Scrn Presumptive positive (CUTOFF=10) Ur Oxycodone Screen Negative (DOL7EN=672) Urine Methadone Screen Negative (URCUHJ=369) Ur Propoxyphene Screen Negative (QPJMHH=531) Ur Barbiturates Screen Negative (BVUTFM=398) Ur Tricyclics Screen Negative (PZNXEF=822) Ur Phencyclidine Scrn Negative (CUTOFF=25) Ur Amphetamine Screen Negative (HYDRBB=639) U Methamphetamines Scrn Negative (AVVACJ=701) U Benzodiazepines Scrn Negative (WXISGC=576) U Cocaine Metab Screen Negative (FCJEFG=160) U Marijuana (THC) Screen Presumptive positive H (CUTOFF=50) Ethyl Alcohol (0.00) gm% Ketones (0.0-0.3) mM SARS Virus RNA (PCR) (NEGATIVE) 04/22/20 04/22/20 04/22/20 Range/Units 12:52 14:35 14:40 WBC 20.57 H (3.98-10.04) K/mm3 RBC 3.77 L (3.98-5.22) M/mm3 Hgb 11.1 L D (11.2-15.7) gm/dl Hct 37.4 (34.1-44.9) % MCV 99.2 H (79.4-94.8) fl MCH 29.4 (25.6-32.2) pg MCHC 29.7 L (32.2-35.5) g/dl RDW Std Deviation 50.0 H (36.4-46.3) fL Plt Count 168 L (182-369) K/mm3 MPV 11.3 (9.4-12.3) fl Neut % (Auto) 79.1 H (34.0-71.1) % Lymph % (Auto) 13.8 L (19.3-51.7) % Stearns % (Auto) 6.0 (4.7-12.5) % Eos % (Auto) 0 L (0.7-5.8) Baso % (Auto) 0.1 (0.1-1.2) % Neut # (Auto) 16.27 H (1.56-6.13) K/mm3 Lymph # (Auto) 2.84 (1.18-3.74) K/mm3 Stearns # (Auto) 1.23 H (0.24-0.36) K/mm3 Eos # (Auto) 0.00 L (0.04-0.36) K/mm3 Baso # (Auto) 0.03 (0.01-0.08) K/mm3 Manual Slide Review Abnormal smear Puncture Site Lt radial ABG pH 7.09 L* (7.35-7.45) ABG pCO2 13.9 L* (35.0-45.0) mmHg ABG pO2 117.0 H (80.0-100.0) mmHg ABG HCO3 4.0 L (22.0-26.0) meq/L ABG O2 Saturation 97.3 H (96.0-97.0) % ABG Base Excess -24.8 L (-2-2.0) Darrell Test A-a Gradient 16 mmHg O2 Delivery Device Room air Oxygen Flow Rate 0.0 FiO2 21.00 (21.00-100.00) % Sodium (136-145) mEq/L Potassium (3.5-5.1) mEq/L Chloride (98-107) mEq/L Carbon Dioxide (21-32) mEq/L Anion Gap (5-15) BUN (7-18) mg/dL Creatinine (0.55-1.02) mg/dL Est Cr Clr Drug Dosing mL/min Estimated GFR (MDRD) (>60) mL/min BUN/Creatinine Ratio (14-18) Glucose (74-106) mg/dL Lactic Acid (0.4-2.0) mmol/L Calcium (8.5-10.1) mg/dL Total Bilirubin (0.2-1.0) mg/dL AST (15-37) U/L ALT (14-59) U/L Alkaline Phosphatase (46-116) U/L Total Protein (6.4-8.2) g/dl Albumin (3.4-5.0) g/dl Globulin gm/dL Albumin/Globulin Ratio (1-2) Urine Color (Yellow) Urine Appearance (Clear) Urine pH (5.0-8.0) Ur Specific [place] (1.005-1.030) Urine Protein (Negative) Urine Glucose (UA) (Negative) Urine Ketones (Negative) Urine Occult Blood (Negative) Urine Nitrite (Negative) Urine Bilirubin (Negative) Urine Urobilinogen (0.2-1.0) Ur Leukocyte Esterase (Negative) Urine Opiates Screen (FZQELD=666) Ur Buprenorphine Scrn (CUTOFF=10) Ur Oxycodone Screen (NDK9IO=841) Urine Methadone Screen (TKWKDS=210) Ur Propoxyphene Screen (QBGRIQ=920) Ur Barbiturates Screen (NRJAUU=715) Ur Tricyclics Screen (JELDVU=286) Ur Phencyclidine Scrn (CUTOFF=25) Ur Amphetamine Screen (LVCEBJ=033) U Methamphetamines Scrn (SSVBXY=434) U Benzodiazepines Scrn (HVZLPB=627) U Cocaine Metab Screen (HDESGR=051) U Marijuana (THC) Screen (CUTOFF=50) Ethyl Alcohol (0.00) gm% Ketones (0.0-0.3) mM SARS Virus RNA (PCR) Negative (NEGATIVE) 04/22/20 04/22/20 04/22/20 Range/Units 15:10 15:10 15:10 WBC (3.98-10.04) K/mm3 RBC (3.98-5.22) M/mm3 Hgb (11.2-15.7) gm/dl Hct (34.1-44.9) % MCV (79.4-94.8) fl MCH (25.6-32.2) pg MCHC (32.2-35.5) g/dl RDW Std Deviation (36.4-46.3) fL Plt Count (182-369) K/mm3 MPV (9.4-12.3) fl Neut % (Auto) (34.0-71.1) % Lymph % (Auto) (19.3-51.7) % Stearns % (Auto) (4.7-12.5) % Eos % (Auto) (0.7-5.8) Baso % (Auto) (0.1-1.2) % Neut # (Auto) (1.56-6.13) K/mm3 Lymph # (Auto) (1.18-3.74) K/mm3 Stearns # (Auto) (0.24-0.36) K/mm3 Eos # (Auto) (0.04-0.36) K/mm3 Baso # (Auto) (0.01-0.08) K/mm3 Manual Slide Review Puncture Site ABG pH (7.35-7.45) ABG pCO2 (35.0-45.0) mmHg ABG pO2 (80.0-100.0) mmHg ABG HCO3 (22.0-26.0) meq/L ABG O2 Saturation (96.0-97.0) % ABG Base Excess (-2-2.0) Darrell Test A-a Gradient mmHg O2 Delivery Device Oxygen Flow Rate FiO2 (21.00-100.00) % Sodium 136 (136-145) mEq/L Potassium 5.1 (3.5-5.1) mEq/L Chloride 101 (98-107) mEq/L Carbon Dioxide 9 L D (21-32) mEq/L Anion Gap 31.1 H (5-15) BUN 71 H D (7-18) mg/dL Creatinine 2.2 H D (0.55-1.02) mg/dL Est Cr Clr Drug Dosing 30.82 mL/min Estimated GFR (MDRD) 25 (>60) mL/min BUN/Creatinine Ratio 32.3 H (14-18) Glucose 562 H* (74-106) mg/dL Lactic Acid 2.7 H* (0.4-2.0) mmol/L Calcium 7.6 L (8.5-10.1) mg/dL Total Bilirubin 0.5 (0.2-1.0) mg/dL AST 20 (15-37) U/L ALT 25 (14-59) U/L Alkaline Phosphatase 67 (46-116) U/L Total Protein 4.7 L (6.4-8.2) g/dl Albumin 2.5 L (3.4-5.0) g/dl Globulin 2.2 gm/dL Albumin/Globulin Ratio 1.1 (1-2) Urine Color (Yellow) Urine Appearance (Clear) Urine pH (5.0-8.0) Ur Specific [place] (1.005-1.030) Urine Protein (Negative) Urine Glucose (UA) (Negative) Urine Ketones (Negative) Urine Occult Blood (Negative) Urine Nitrite (Negative) Urine Bilirubin (Negative) Urine Urobilinogen (0.2-1.0) Ur Leukocyte Esterase (Negative) Urine Opiates Screen (DFRYCH=337) Ur Buprenorphine Scrn (CUTOFF=10) Ur Oxycodone Screen (YSM1DO=478) Urine Methadone Screen (ATZDWP=983) Ur Propoxyphene Screen (BKNOCF=953) Ur Barbiturates Screen (XHOKII=103) Ur Tricyclics Screen (PCNBDJ=771) Ur Phencyclidine Scrn (CUTOFF=25) Ur Amphetamine Screen (YLPGPO=599) U Methamphetamines Scrn (OITVEY=423) U Benzodiazepines Scrn (TUKKRL=765) U Cocaine Metab Screen (SNGEHH=048) U Marijuana (THC) Screen (CUTOFF=50) Ethyl Alcohol 0.00 (0.00) gm% Ketones 17.77 (0.0-0.3) mM SARS Virus RNA (PCR) (NEGATIVE) Meds: Medications Generic Name Dose Route Start Last Admin Trade Name Freq PRN Reason Stop Dose Admin Sodium Chloride 1,000 mls @ 999 mls/hr 04/22/20 11:30 04/22/20 12:14 Normal Saline IV 999 mls/hr ONETIME TONIO Administration Insulin Human Regular 100 unit 100 mls @ 3 mls/hr 04/22/20 12:30 04/22/20 12: 52 / Sodium Chloride IV 3 units/hr TITRATE TONIO 3 mls/hr Administration Protocol 3 UNITS/HR Sodium Chloride 10 ml 04/22/20 11:25 04/22/20 12:15 Saline Flush FLUSH 10 ml ASDIRECTED PRN Administration Keep Vein Open Discontinued Medications Generic Name Dose Route Start Last Admin Trade Name Freq PRN Reason Stop Dose Admin Sodium Chloride Confirm 04/22/20 12:34 04/22/20 12:52 Normal Saline Administered 04/22/20 12:35 Not Given Dose 1,000 mls @ as directed .ROUTE .STK-MED ONE Sodium Chloride 1,000 mls @ 999 mls/hr 04/22/20 14:30 04/22/20 13:20 Normal Saline IV 04/22/20 15:30 999 mls/hr ONETIME ONE Administration Sodium Chloride 1,000 mls @ 999 mls/hr 04/22/20 14:32 04/22/20 14:33 Normal Saline IV 04/22/20 15:32 999 mls/hr ONETIME ONE Administration Lactated Ringer's 1,000 mls @ 500 mls/hr 04/22/20 15:26 04/22/20 15:29 Ringers, Lactated IV 04/22/20 17:25 500 mls/hr ONETIME ONE Administration Insulin Human Regular 5 unit 04/22/20 11:56 04/22/20 12:14 Humulin R IVPUSH 04/22/20 11:57 5 unit ONETIME ONE Administration Protocol Lorazepam 1 mg 04/22/20 12:06 04/22/20 12:14 Ativan IVPUSH 04/22/20 12:07 1 mg ONETIME ONE Administration Lorazepam 1 mg 04/22/20 17:06 Ativan IVPUSH 04/22/20 17:07 ONETIME ONE - Re-Assessments/Exams Free Text/Narrative Re-Assessment/Exam: 04/22/20 12:14 staff unable to get IV, she is dehydrated, not much for veins present to work with. they aborted further IV attempts and place IO L anterior tibia. ABG's ordered. IV fluid, 5 mg IV insulin ordered and than will start drip at 3 units per hr for now. 04/22/20 12:30. ABG's show severe metabolic acidosis. ph 6.93. po2 121, Co2 14.3, Hco3 2.9. Lab also unable to get a draw. Will have them try again after we get her hydrated up a bit better. Will plan to repeat ABG's in about 1 hr. 04/22/20 13:40. Starting on 3rd liter NS, 95/49, MAP 64, 112. Still awaiting chemistries. will repeat ABG's at this time. Covid screen also ordered. 04/22/20 14:40. I was recently informed still not enough serum to run chemistries or other tests ordered. Have asked Anesthesia be called. Repeat ABG' s are improved from initial gases. 7.09, 13.9, 117, 4.0. Have switched to LR after 3 L NS, running that at 500/hr. Repeat glucose has still been running greater than 400. 91/51, 114. 04/22/20 16:33. Labs show Na 136, K+5.1, C02 9, An gap 31, glucose 562, creatnine 2.2, Lactic acid 2.7. BP 123/85. She is arouseable, answering simple questions which she was not able to do initially. Dr Ashton has agree for admission ICU, He has asked Dr Tapia, Gen Surgeon print controller be asked to come put in a central line so there will be access for repeat q 4hr labs. He has agreed to come in and do that. Departure - Departure Time of Disposition: 16:30 Disposition: DC/Tfer to Acute Hospital 02 Condition: Serious Clinical Impression: Hyperglycemia, Dehydration, Altered mental status Diabetic keto-acidosis Qualifiers: Diabetes mellitus type: type 1 Diabetes mellitus complication detail: without coma Qualified Code(s): E10.10 - Type 1 diabetes mellitus with ketoacidosis without coma - Discharge Information Referrals: Fanta Canseco PA-C [Primary Care Provider] - Forms: ED Department Discharge Sepsis Event Note - Evaluation Sepsis Screening Result: No Definite Risk - Focused Exam Vital Signs: Vital Signs Temp Pulse Resp BP Pulse Ox 04/22/20 16:36 107 H 16 100/69 100 04/22/20 15:59 116 H 16 104/68 100 04/22/20 12:59 112 H 16 91/48 L 100 04/22/20 12:17 117 H 24 H 89/52 L 100 04/22/20 11:24 97.1 F 110 H 21 H 71/41 L 100 Date Exam was Performed: 04/22/20 Time Exam was Performed: 17:31 ED Communication - Discussed Case With (1) Discussed Case With (1): Admitting Provider (richy Giraldo to admit at about 16:35) - My Orders Last 24 Hours: My Active Orders 04/22/20 11:25 POC Glucose [Blood Glucose Check, Bedside] [RC] ONETIME Sodium Chloride 0.9% [Saline Flush] 10 ml FLUSH ASDIRECTED PRN Peripheral IV Insertion Adult [OM.PC] Stat 04/22/20 11:26 Peripheral IV Care [RC] . DIRECTED 04/22/20 11:30 Sodium Chloride 0.9% [Normal Saline] 1,000 ml IV ONETIME 04/22/20 11:31 EKG 12 Lead [EKG Documentation Completion] [RC] STAT 04/22/20 12:23 EKG 12 Lead [EKG Documentation Completion] [RC] STAT 04/22/20 12:30 Insulin Regular, Human [HumuLIN R] 100 unit Sodium Chloride 0.9% [Normal Saline] 99 ml IV TITRATE 04/22/20 13:54 Blood Glucose Check, Bedside [RC] ONETIME 04/22/20 16:34 Blood Glucose Check, Bedside [RC] ONETIME - Assessment/Plan Last 24 Hours: My Active Orders 04/22/20 11:25 POC Glucose [Blood Glucose Check, Bedside] [RC] ONETIME Sodium Chloride 0.9% [Saline Flush] 10 ml FLUSH ASDIRECTED PRN Peripheral IV Insertion Adult [OM.PC] Stat 04/22/20 11:26 Peripheral IV Care [RC] . DIRECTED 04/22/20 11:30 Sodium Chloride 0.9% [Normal Saline] 1,000 ml IV ONETIME 04/22/20 11:31 EKG 12 Lead [EKG Documentation Completion] [RC] STAT 04/22/20 12:23 EKG 12 Lead [EKG Documentation Completion] [RC] STAT 04/22/20 12:30 Insulin Regular, Human [HumuLIN R] 100 unit Sodium Chloride 0.9% [Normal Saline] 99 ml IV TITRATE 04/22/20 13:54 Blood Glucose Check, Bedside [RC] ONETIME 04/22/20 16:34 Blood Glucose Check, Bedside [RC] ONETIME
[2020-04-22] MEDS ORDERED: Insulin Regular, Human 100 Units/ML 3 ML Vial IVPUSH ONE (11:56)
[2020-04-22] MEDS ORDERED: LORazepam 2 MG/ML SDV IVPUSH ONE ×2 (12:06→17:06)
[2020-04-22] MEDS: Sodium Chloride 0.9% 10 ML Syringe FLUSH PRN (12:15)
[2020-04-22] MEDS ORDERED: Sodium Chloride 0.9% 1,000 ML ONE (12:34)
[2020-04-22] MEDS ORDERED: Sodium Chloride 0.9% 1,000 ML IV ONE ×2 (14:30→14:32)
--- NOTE | 2020-04-22 15:21 | PCM.SN.2 ---
- Free Text/Narrative Note: Called to start IV and obtain blood samples. Routine ultrasound IV start with 20 gauge, 1.88 inch in right proximal AC basillic vein X1 attempt. Sterile chloroprep. RN assistance was required as patient was agitated and relatively uncooperative, being unable to follow commands well. Multiple vials of blood sample were sent to the lab. IV secured in usual fashion in addition to using coban. No concerns at this time.
[2020-04-22] MEDS ORDERED: Lactated Ringers 1,000 ML IV ONE ×2 (15:26→18:12)
--- NOTE | 2020-04-22 17:41 | PCM.PRNOTE ---
- Free Text/Narrative Note: Procedure: Central Venous Line Placement Indication: DKA with tenuous IV access Surgeon: Foster Tapia MD Detailed Report: The patient was positioned supine in Trendelenburg for line placement. Due to altered mental status emergency consent was obtained and the patient was temporarily placed in restraints. The right neck was prepped and draped in sterile fashion. Ultrasound was used to localize the right internal jugular vein. 2 cc 1% lidocaine was injected at the site, and a large bore needle on a syringe was inserted with ultrasound guidance. Venous blood was aspirated, and the syringe removed. The guidewire was passed through the needle easily, and the needle withdrawn. A small stab incision was made at the site of insertion at the skin, and a dilator was threaded over the wire. A triple lumen CVC was threaded without resistance over the guidewire, and wire was removed. Blood yuly back on all three ports and all ports flushed without resistance. The line was secured with silk suture and dressed with a sterile antimicrobial dressing. The patient tolerated the procedure well. Chest x-ray was ordered to confirm proper positioning of the line. Foster Tapia MD General Surgery
--- NOTE | 2020-04-22 18:11 | CR ---
Chest: Portable view of the chest was obtained. Comparison: Prior chest x-ray of 08/22/19. Right jugular line is noted. No pneumothorax is seen. Heart size and mediastinum are normal. Bony structures are grossly intact. Surgical clips are seen within the upper right abdomen from prior cholecystectomy. Impression: 1. Right jugular line with no pneumothorax. 2. Nothing acute is appreciated on portable chest x-ray. Diagnostic code #2 This report was dictated in MDT
[2020-04-22] MEDS ORDERED: Ondansetron 4 MG/2 ML SDV IV PRN (19:12)
[2020-04-22] MEDS: LORazepam 2 MG/ML SDV IV PRN (19:38)
--- NOTE | 2020-04-22 19:46 | PCM.HP.2 ---
H&P History of Present Illness - General Date of Service: 04/22/20 Admit Problem/Dx: Admission Diagnosis/Problem Admission Diagnosis/Problem Diabetic ketoacidosis History Limitations: Reports: Altered Mental Status - History of Present Illness Initial Comments - Free Text/Narative: 34-year-old female with type 1 diabetes, poor compliance with insulin regimen, and gastroparesis presents to the emergency department via EMS from [facility] with elevated blood sugar, weak, dizzy, vomiting, and confused. Patient was confused at time of interview, therefore history obtained through chart review. Apparently brother called EMS. In the emergency room patient became agitated and yelling. She thrashed about with her arms and legs and they were unable to get IV. An IO was placed and she was given a total of 4 L of fluid in the emergency department. Insulin bolus and insulin drip was started. Initially they were unable to get a metabolic panel because of difficulty with IV access. Initial blood gas showed a pH of 6.93, PaO2 121, PCO2 of 14.3, bicarb 2.9. Chemistries were obtained after approximately 3 hours in the emergency department she was found to have a sodium of 136, potassium 5.1, bicarb 9, anion gap 31, glucose 562, creatinine 2.2, lactic acid 2.7. Patient did require IV Ativan 1 mg x 2. Ultimately a line was placed by BONG in the left antecubital fossa. Central line was then placed by Dr. Tapia for vascular access secondary to the multiple blood draws and fluids. Patient is a known hard blood draw. Repeat blood gas showed a pH of 7.09. Urine drug screen was positive for buprenorphine and marijuana. COVID PCR negative. Ketones 17.77, negative alcohol Patient was then transferred to the ICU. - Related Data Allergies/Adverse Reactions: Allergies Allergy/AdvReac Type Severity Reaction Status Date / Time latex Allergy Severe Hives Verified 04/22/20 11:24 tramadol Allergy Severe Hives Verified 04/22/20 11:24 purex laundry soap Allergy Severe Hives Uncoded 04/22/20 11:24 Home Medications: Home Meds Insulin Aspart [Novolog Flexpen] See Protocol SUBCNJ TIDMEALS 01/05/18 [History] Insulin Degludec [Tresiba] 6 unit SQ DAILY 12/18/18 [History] Buprenorphine HCl/Naloxone HCl [Suboxone 4 mg-1 mg Sl Film] 12 mg PO ACBREAKFAST 05/13/19 [History] Buprenorphine HCl/Naloxone HCl [Buprenorp-Nalox 8-2 mg Sl Film] 8 mg SL ACDINNER 02/29/20 [History] Past Medical History HEENT History: Reports: Other (See Below) Other HEENT History: dysphagia Cardiovascular History: Reports: Hypertension Respiratory History: Reports: PE Gastrointestinal History: Reports: Chronic Diarrhea, GERD, Irritable Bowel Syndrome Other Gastrointestinal History: diarrhea, nausea, LLQ pain 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 History: Reports: Acute Renal Failure [employer] History: Reports: Endometriosis, Other OB/BYN History: amenorrhea Musculoskeletal History: Reports: Arthritis, Back Pain, Chronic Other Musculoskeletal History: chronic pain Neurological History: Reports: Headaches, Chronic, Migraines, Seizure Other Neuro History: Diabetic seizure Psychiatric History: Reports: Anxiety, Depression Other Psychiatric History: drug use history Endocrine/Metabolic History: Reports: Diabetes, Type I, Hypokalemia Other Endocrine/Metabolic History: hypokalemia Hematologic History: Reports: Blood Transfusion(s) Other Hematologic History: blood clotting disorder, DVT Other Immunologic History: risk for HIV from IV drug use, MRSA Dermatologic History: Reports: Eczema, Psoriasis - Infectious Disease History Infectious Disease History: Reports: MRSA Other Infectious Disease History: MRSA-2 yrs ago - Past Surgical History GI Surgical History: Reports: Cholecystectomy Other GI Surgeries/Procedures: ileostomy and closure, small bowel resection Social & Family History - Family History Family Medical History: Noncontributory - Tobacco Use Smoking Status *Q: Unknown Ever Smoked - Caffeine Use Caffeine Use: Reports: None Other Caffeine Use: drinks mellow yellow daily about 3 cans - Recreational Drug Use Recreational Drug Use: Yes Recreational Drug Type: Reports: Heroin - Living Situation & Occupation Living situation: Reports: Single, with Family Occupation: Unemployed H&P Review of Systems - Review of Systems: Review Of Systems: Unable To Obtain Reason Not Obtained: Altered mental status Exam - Exam Exam: See Below - Vital Signs Vital Signs: Last Vital Signs Temp 97.1 F 04/22/20 11:24 Pulse 102 H 04/22/20 18:05 Resp 16 04/22/20 18:05 BP 110/70 04/22/20 18:05 Pulse Ox 100 04/22/20 18:05 Weight: 264 lb 8.875 oz - Exam General: Moderate Distress. No: Alert, Cooperative HEENT: No: Mucosa Moist & [place] (Dry) Neck: Supple Lungs: Clear to Auscultation, Normal Respiratory Effort Cardiovascular: Regular Rhythm, Tachycardia GI/Abdominal Exam: Soft, Non-Tender, No Organomegaly, No Distention, Abnormal Bowel Sounds (Decreased) Extremities: Non-Tender, No Pedal Edema, Normal Capillary Refill Skin: Warm, Dry, Intact Neuro Extensive - Mental Status: Disorientation to Time, Inattentive, Opens Eyes to Commands. No: Alert Psychiatric: Agitated - Patient Data Lab Results Last 24 hrs: Laboratory Results - last 24 hr 04/22/20 04/22/20 04/22/20 Range/Units 11:45 11:45 12:09 WBC (3.98-10.04) K/mm3 RBC (3.98-5.22) M/mm3 Hgb (11.2-15.7) gm/dl Hct (34.1-44.9) % MCV (79.4-94.8) fl MCH (25.6-32.2) pg MCHC (32.2-35.5) g/dl RDW Std Deviation (36.4-46.3) fL Plt Count (182-369) K/mm3 MPV (9.4-12.3) fl Neut % (Auto) (34.0-71.1) % Lymph % (Auto) (19.3-51.7) % [place] % (Auto) (4.7-12.5) % Eos % (Auto) (0.7-5.8) Baso % (Auto) (0.1-1.2) % Neut # (Auto) (1.56-6.13) K/mm3 Lymph # (Auto) (1.18-3.74) K/mm3 [place] # (Auto) (0.24-0.36) K/mm3 Eos # (Auto) (0.04-0.36) K/mm3 Baso # (Auto) (0.01-0.08) K/mm3 Manual Slide Review Puncture Site Lt radial ABG pH 6.93 L* (7.35-7.45) ABG pCO2 14.3 L* (35.0-45.0) mmHg ABG pO2 121.0 H (80.0-100.0) mmHg ABG HCO3 2.9 L (22.0-26.0) meq/L ABG O2 Saturation 96.0 (96.0-97.0) % ABG Base Excess -28.6 L (-2-2.0) Darrell Test Positive VBG pH (7.30-7.40) A-a Gradient 11 mmHg O2 Delivery Device Room air Oxygen Flow Rate 0.0 FiO2 21.00 (21.00-100.00) % Sodium (136-145) mEq/L Potassium (3.5-5.1) mEq/L Chloride (98-107) mEq/L Carbon Dioxide (21-32) mEq/L Anion Gap (5-15) BUN (7-18) mg/dL Creatinine (0.55-1.02) mg/dL Est Cr Clr Drug Dosing mL/min Estimated GFR (MDRD) (>60) mL/min BUN/Creatinine Ratio (14-18) Glucose (74-106) mg/dL Lactic Acid (0.4-2.0) mmol/L Calcium (8.5-10.1) mg/dL Total Bilirubin (0.2-1.0) mg/dL AST (15-37) U/L ALT (14-59) U/L Alkaline Phosphatase (46-116) U/L Total Protein (6.4-8.2) g/dl Albumin (3.4-5.0) g/dl Globulin gm/dL Albumin/Globulin Ratio (1-2) Urine Color Yellow (Yellow) Urine Appearance Clear (Clear) Urine pH 5.5 (5.0-8.0) Ur Specific Bow 1.020 (1.005-1.030) Urine Protein Negative (Negative) Urine Glucose (UA) 2+ H (Negative) Urine Ketones 3+ H (Negative) Urine Occult Blood Negative (Negative) Urine Nitrite Negative (Negative) Urine Bilirubin Negative (Negative) Urine Urobilinogen 0.2 (0.2-1.0) Ur Leukocyte Esterase Negative (Negative) Urine Opiates Screen Negative (QZRDDZ=481) Ur Buprenorphine Scrn Presumptive positive (CUTOFF=10) Ur Oxycodone Screen Negative (BYG6YK=854) Urine Methadone Screen Negative (OEVXMQ=934) Ur Propoxyphene Screen Negative (AOFMFO=564) Ur Barbiturates Screen Negative (ORUVYO=273) Ur Tricyclics Screen Negative (RRLBTX=977) Ur Phencyclidine Scrn Negative (CUTOFF=25) Ur Amphetamine Screen Negative (UZUUZM=156) U Methamphetamines Scrn Negative (EMIOVB=302) U Benzodiazepines Scrn Negative (KAYKPG=719) U Cocaine Metab Screen Negative (UFJGKZ=028) U Marijuana (THC) Screen Presumptive positive H (CUTOFF=50) Ethyl Alcohol (0.00) gm% Ketones (0.0-0.3) mM SARS Virus RNA (PCR) (NEGATIVE) 04/22/20 04/22/20 04/22/20 Range/Units 12:52 14:35 14:40 WBC 20.57 H (3.98-10.04) K/mm3 RBC 3.77 L (3.98-5.22) M/mm3 Hgb 11.1 L D (11.2-15.7) gm/dl Hct 37.4 (34.1-44.9) % MCV 99.2 H (79.4-94.8) fl MCH 29.4 (25.6-32.2) pg MCHC 29.7 L (32.2-35.5) g/dl RDW Std Deviation 50.0 H (36.4-46.3) fL Plt Count 168 L (182-369) K/mm3 MPV 11.3 (9.4-12.3) fl Neut % (Auto) 79.1 H (34.0-71.1) % Lymph % (Auto) 13.8 L (19.3-51.7) % [place] % (Auto) 6.0 (4.7-12.5) % Eos % (Auto) 0 L (0.7-5.8) Baso % (Auto) 0.1 (0.1-1.2) % Neut # (Auto) 16.27 H (1.56-6.13) K/mm3 Lymph # (Auto) 2.84 (1.18-3.74) K/mm3 [place] # (Auto) 1.23 H (0.24-0.36) K/mm3 Eos # (Auto) 0.00 L (0.04-0.36) K/mm3 Baso # (Auto) 0.03 (0.01-0.08) K/mm3 Manual Slide Review Abnormal smear Puncture Site Lt radial ABG pH 7.09 L* (7.35-7.45) ABG pCO2 13.9 L* (35.0-45.0) mmHg ABG pO2 117.0 H (80.0-100.0) mmHg ABG HCO3 4.0 L (22.0-26.0) meq/L ABG O2 Saturation 97.3 H (96.0-97.0) % ABG Base Excess -24.8 L (-2-2.0) Darrell Test VBG pH (7.30-7.40) A-a Gradient 16 mmHg O2 Delivery Device Room air Oxygen Flow Rate 0.0 FiO2 21.00 (21.00-100.00) % Sodium (136-145) mEq/L Potassium (3.5-5.1) mEq/L Chloride (98-107) mEq/L Carbon Dioxide (21-32) mEq/L Anion Gap (5-15) BUN (7-18) mg/dL Creatinine (0.55-1.02) mg/dL Est Cr Clr Drug Dosing mL/min Estimated GFR (MDRD) (>60) mL/min BUN/Creatinine Ratio (14-18) Glucose (74-106) mg/dL Lactic Acid (0.4-2.0) mmol/L Calcium (8.5-10.1) mg/dL Total Bilirubin (0.2-1.0) mg/dL AST (15-37) U/L ALT (14-59) U/L Alkaline Phosphatase (46-116) U/L Total Protein (6.4-8.2) g/dl Albumin (3.4-5.0) g/dl Globulin gm/dL Albumin/Globulin Ratio (1-2) Urine Color (Yellow) Urine Appearance (Clear) Urine pH (5.0-8.0) Ur Specific Bow (1.005-1.030) Urine Protein (Negative) Urine Glucose (UA) (Negative) Urine Ketones (Negative) Urine Occult Blood (Negative) Urine Nitrite (Negative) Urine Bilirubin (Negative) Urine Urobilinogen (0.2-1.0) Ur Leukocyte Esterase (Negative) Urine Opiates Screen (XNHHGQ=379) Ur Buprenorphine Scrn (CUTOFF=10) Ur Oxycodone Screen (EFT3RC=015) Urine Methadone Screen (HUIBAU=061) Ur Propoxyphene Screen (BQZCCQ=746) Ur Barbiturates Screen (OCZNLM=868) Ur Tricyclics Screen (LFVEET=212) Ur Phencyclidine Scrn (CUTOFF=25) Ur Amphetamine Screen (LCKOVX=770) U Methamphetamines Scrn (KTEEEC=618) U Benzodiazepines Scrn (LSTAMS=661) U Cocaine Metab Screen (XSCFBJ=223) U Marijuana (THC) Screen (CUTOFF=50) Ethyl Alcohol (0.00) gm% Ketones (0.0-0.3) mM SARS Virus RNA (PCR) Negative (NEGATIVE) 04/22/20 04/22/20 04/22/20 Range/Units 15:10 15:10 15:10 WBC (3.98-10.04) K/mm3 RBC (3.98-5.22) M/mm3 Hgb (11.2-15.7) gm/dl Hct (34.1-44.9) % MCV (79.4-94.8) fl MCH (25.6-32.2) pg MCHC (32.2-35.5) g/dl RDW Std Deviation (36.4-46.3) fL Plt Count (182-369) K/mm3 MPV (9.4-12.3) fl Neut % (Auto) (34.0-71.1) % Lymph % (Auto) (19.3-51.7) % [place] % (Auto) (4.7-12.5) % Eos % (Auto) (0.7-5.8) Baso % (Auto) (0.1-1.2) % Neut # (Auto) (1.56-6.13) K/mm3 Lymph # (Auto) (1.18-3.74) K/mm3 [place] # (Auto) (0.24-0.36) K/mm3 Eos # (Auto) (0.04-0.36) K/mm3 Baso # (Auto) (0.01-0.08) K/mm3 Manual Slide Review Puncture Site ABG pH (7.35-7.45) ABG pCO2 (35.0-45.0) mmHg ABG pO2 (80.0-100.0) mmHg ABG HCO3 (22.0-26.0) meq/L ABG O2 Saturation (96.0-97.0) % ABG Base Excess (-2-2.0) Darrell Test VBG pH (7.30-7.40) A-a Gradient mmHg O2 Delivery Device Oxygen Flow Rate FiO2 (21.00-100.00) % Sodium 136 (136-145) mEq/L Potassium 5.1 (3.5-5.1) mEq/L Chloride 101 (98-107) mEq/L Carbon Dioxide 9 L D (21-32) mEq/L Anion Gap 31.1 H (5-15) BUN 71 H D (7-18) mg/dL Creatinine 2.2 H D (0.55-1.02) mg/dL Est Cr Clr Drug Dosing 30.82 mL/min Estimated GFR (MDRD) 25 (>60) mL/min BUN/Creatinine Ratio 32.3 H (14-18) Glucose 562 H* (74-106) mg/dL Lactic Acid 2.7 H* (0.4-2.0) mmol/L Calcium 7.6 L (8.5-10.1) mg/dL Total Bilirubin 0.5 (0.2-1.0) mg/dL AST 20 (15-37) U/L ALT 25 (14-59) U/L Alkaline Phosphatase 67 (46-116) U/L Total Protein 4.7 L (6.4-8.2) g/dl Albumin 2.5 L (3.4-5.0) g/dl Globulin 2.2 gm/dL Albumin/Globulin Ratio 1.1 (1-2) Urine Color (Yellow) Urine Appearance (Clear) Urine pH (5.0-8.0) Ur Specific Bow (1.005-1.030) Urine Protein (Negative) Urine Glucose (UA) (Negative) Urine Ketones (Negative) Urine Occult Blood (Negative) Urine Nitrite (Negative) Urine Bilirubin (Negative) Urine Urobilinogen (0.2-1.0) Ur Leukocyte Esterase (Negative) Urine Opiates Screen (FLEFCM=050) Ur Buprenorphine Scrn (CUTOFF=10) Ur Oxycodone Screen (IVE2PS=342) Urine Methadone Screen (GSKIUT=269) Ur Propoxyphene Screen (HZWJKM=469) Ur Barbiturates Screen (VBHIXY=129) Ur Tricyclics Screen (AZSRLK=757) Ur Phencyclidine Scrn (CUTOFF=25) Ur Amphetamine Screen (KWXGKW=765) U Methamphetamines Scrn (QVMWRK=419) U Benzodiazepines Scrn (HEBZST=916) U Cocaine Metab Screen (GCDUQX=594) U Marijuana (THC) Screen (CUTOFF=50) Ethyl Alcohol 0.00 (0.00) gm% Ketones 17.77 (0.0-0.3) mM SARS Virus RNA (PCR) (NEGATIVE) 04/22/20 04/22/20 Range/Units 18:07 19:16 WBC (3.98-10.04) K/mm3 RBC (3.98-5.22) M/mm3 Hgb (11.2-15.7) gm/dl Hct (34.1-44.9) % MCV (79.4-94.8) fl MCH (25.6-32.2) pg MCHC (32.2-35.5) g/dl RDW Std Deviation (36.4-46.3) fL Plt Count (182-369) K/mm3 MPV (9.4-12.3) fl Neut % (Auto) (34.0-71.1) % Lymph % (Auto) (19.3-51.7) % [place] % (Auto) (4.7-12.5) % Eos % (Auto) (0.7-5.8) Baso % (Auto) (0.1-1.2) % Neut # (Auto) (1.56-6.13) K/mm3 Lymph # (Auto) (1.18-3.74) K/mm3 [place] # (Auto) (0.24-0.36) K/mm3 Eos # (Auto) (0.04-0.36) K/mm3 Baso # (Auto) (0.01-0.08) K/mm3 Manual Slide Review Puncture Site ABG pH (7.35-7.45) ABG pCO2 (35.0-45.0) mmHg ABG pO2 (80.0-100.0) mmHg ABG HCO3 (22.0-26.0) meq/L ABG O2 Saturation (96.0-97.0) % ABG Base Excess (-2-2.0) Darrell Test VBG pH 7.28 L (7.30-7.40) A-a Gradient mmHg O2 Delivery Device Oxygen Flow Rate FiO2 (21.00-100.00) % Sodium (136-145) mEq/L Potassium (3.5-5.1) mEq/L Chloride (98-107) mEq/L Carbon Dioxide (21-32) mEq/L Anion Gap (5-15) BUN (7-18) mg/dL Creatinine (0.55-1.02) mg/dL Est Cr Clr Drug Dosing mL/min Estimated GFR (MDRD) (>60) mL/min BUN/Creatinine Ratio (14-18) Glucose 415 H (74-106) mg/dL Lactic Acid (0.4-2.0) mmol/L Calcium (8.5-10.1) mg/dL Total Bilirubin (0.2-1.0) mg/dL AST (15-37) U/L ALT (14-59) U/L Alkaline Phosphatase (46-116) U/L Total Protein (6.4-8.2) g/dl Albumin (3.4-5.0) g/dl Globulin gm/dL Albumin/Globulin Ratio (1-2) Urine Color (Yellow) Urine Appearance (Clear) Urine pH (5.0-8.0) Ur Specific Bow (1.005-1.030) Urine Protein (Negative) Urine Glucose (UA) (Negative) Urine Ketones (Negative) Urine Occult Blood (Negative) Urine Nitrite (Negative) Urine Bilirubin (Negative) Urine Urobilinogen (0.2-1.0) Ur Leukocyte Esterase (Negative) Urine Opiates Screen (ZKKUTU=993) Ur Buprenorphine Scrn (CUTOFF=10) Ur Oxycodone Screen (CEC8ZJ=727) Urine Methadone Screen (FPGNAL=479) Ur Propoxyphene Screen (KPMCNW=115) Ur Barbiturates Screen (TSYDGV=484) Ur Tricyclics Screen (QAHPID=247) Ur Phencyclidine Scrn (CUTOFF=25) Ur Amphetamine Screen (XCIIXJ=133) U Methamphetamines Scrn (KIXVPB=642) U Benzodiazepines Scrn (VVTMXV=505) U Cocaine Metab Screen (ZXCPMQ=329) U Marijuana (THC) Screen (CUTOFF=50) Ethyl Alcohol (0.00) gm% Ketones (0.0-0.3) mM SARS Virus RNA (PCR) (NEGATIVE) Result Diagrams: 04/22/20 12:52 04/22/20 15:10 EKG INTERPRETATION EKG Date: 04/22/20 Rhythm: Other (Sinus tachycardia) Rate (Beats/Min): 113 [place]: Normal P-Wave: Present QRS: Normal ST-T: Normal QT: Normal (476, borderline prolonged) EKG Interpretation Comments: Right atrial enlargement Sepsis Event Note - Evaluation Sepsis Screening Result: No Definite Risk - Focused Exam Vital Signs: Vital Signs Temp Pulse Resp BP Pulse Ox 04/22/20 18:05 102 H 16 110/70 100 04/22/20 16:36 107 H 16 100/69 100 04/22/20 15:59 116 H 16 104/68 100 04/22/20 12:59 112 H 16 91/48 L 100 04/22/20 12:17 117 H 24 H 89/52 L 100 04/22/20 11:24 97.1 F 110 H 21 H 71/41 L 100 Date Exam was Performed: 04/22/20 Time Exam was Performed: 19:38 Problem List Initiated/Reviewed/Updated: Yes Orders Last 24hrs: Active Orders 24 hr Category Date Time Status Patient Status [ADT] Routine ADT 04/22/20 18:17 Active Blood Glucose Check, Bedside [RC] ONETIME Care 04/22/20 13:54 Active Blood Glucose Check, Bedside [RC] ONETIME Care 04/22/20 16:34 Active Blood Glucose Check, Bedside [RC] ONETIME Care 04/22/20 17:58 Active Communication Order [RC] ASDIRECTED Care 04/22/20 17:58 Active Insert Chao Catheter [Insert Urinary Catheter] [OM.PC] Care 04/22/20 19:30 Ordered Q24H Oxygen Therapy [RC] PRN Care 04/22/20 19:12 Ordered POC Glucose [Blood Glucose Check, Bedside] [RC] ONETIME Care 04/22/20 11:25 Active Peripheral IV Care [RC] . DIRECTED Care 04/22/20 11:26 Active Up With Assistance [RC] ASDIRECTED Care 04/22/20 19:12 Ordered Urinary Catheter Assessment [RC] ASDIRECTED Care 04/22/20 19:19 Active VTE/DVT Education [RC] PER UNIT ROUTINE Care 04/22/20 19:12 Ordered Vital Signs [RC] ASDIRECTED Care 04/22/20 19:12 Ordered Nothing per Oral Now Diet [DIET] Diet 04/22/20 Dinner Ordered BASIC METABOLIC PANEL,BMP [CHEM] Stat Lab 04/22/20 19:10 Ordered MAGNESIUM [CHEM] Stat Lab 04/22/20 19:10 Ordered Insulin Regular, Human [HumuLIN R] 100 unit Med 04/22/20 12:30 Active Sodium Chloride 0.9% [Normal Saline] 99 ml IV TITRATE LORazepam [Ativan] Med 04/22/20 19:12 Ordered 1 mg IV Q2H PRN Lactated Ringers [Ringers, Lactated] 1,000 ml Med 04/22/20 18:12 Active IV ONETIME Ondansetron [Zofran] Med 04/22/20 19:12 Ordered 4 mg IV Q4H PRN Sodium Chloride 0.9% [Normal Saline] 1,000 ml Med 04/22/20 11:30 Active IV ONETIME Sodium Chloride 0.9% [Saline Flush] Med 04/22/20 11:25 Active 10 ml FLUSH ASDIRECTED PRN Peripheral IV Insertion Adult [OM.PC] Stat Oth 04/22/20 11:25 Ordered Resuscitation Status Routine Resus Stat 04/22/20 19:12 Ordered Medication Orders Sodium Chloride (Normal Saline) 1,000 mls @ 999 mls/hr IV ONETIME TONIO Last Admin: 04/22/20 12:14 Dose: 999 mls/hr Insulin Human Regular 100 unit (/ Sodium Chloride) 100 mls @ 3 mls/hr IV TITRATE TONIO; Protocol Last Admin: 04/22/20 12:52 Dose: 3 units/hr, 3 mls/hr Lactated Ringer's (Ringers, Lactated) 1,000 mls @ 500 mls/hr IV ONETIME ONE Stop: 04/22/20 20:11 Last Admin: 04/22/20 18:14 Dose: 500 mls/hr Lorazepam (Ativan) 1 mg IV Q2H PRN PRN Reason: Anxiety Ondansetron HCl (Zofran) 4 mg IV Q4H PRN PRN Reason: Nausea/Vomiting Sodium Chloride (Saline Flush) 10 ml FLUSH ASDIRECTED PRN PRN Reason: Keep Vein Open Last Admin: 04/22/20 12:15 Dose: 10 ml Assessment/Plan Comment:: Diabetic ketoacidosis Type 1 diabetes * Unknown cause at this time secondary to altered mental status * Initial pH 6.93, ketones 17.77, anion gap 31.1 * History of noncompliance * History of drug use and gastroparesis * Multiple admissions for DKA Plan * Admit to ICU on diabetic protocol * N.p.o. * IV insulin drip per protocol * Half-normal saline with 20 mEq of KCl at 250 mL an hour * Decrease glucose by 50 to 70 mg/dL/h until blood sugars reach 200 * When blood sugars reach 200 switch IV fluids to D5 half-normal saline with 20 mEq per KCl at 200 mL an hour * When anion gap closes switch to subcu insulin and start oral intake * BMP and magnesium every 2 to 4 hours * Fingerstick blood sugars hourly Acute kidney injury * BUN 71, creatinine 2.2, estimated GFR 25 * Likely secondary to hypovolemia Plan * Continue IV hydration * Avoid nephrotoxic medications. * Follow CMP. Gastroparesis * Patient was supposed to see gastroenterology in January. * Patient has a history of cyclic vomiting. Plan * Compazine alternating with Zofran for nausea Anxiety * Patient appears more anxious. Plan * Ativan 1 mg IV every 2 hours as needed anxiety Chronic pain syndrome * Patient is on Suboxone Plan * Restart Suboxone when taking orally VTE prophylaxis with Lovenox CODE STATUS: Full code - Mortality Measure Prognosis:: Poor
[2020-04-22] MEDS: Sodium Chloride 0.45% with KCl 1,000 ML IV SCH (20:45)
[2020-04-22] MEDS ORDERED: D5 1/2 NS w/ 20 mEq/L KCl 1,000 ML IV SCH ×2 (20:45→23:45)
[2020-04-23] MEDS: Potassium Chloride 10 MEQ in Premix Bag 1 BAG IV SCH ×2 (00:22→01:22)
[2020-04-23] MEDS: Sodium Chloride 0.45% with KCl 1,000 ML IV SCH ×4 (04:44→15:47)
[2020-04-23] MEDS: HYDROmorphone 0.5 MG/0.5 ML Syringe IVPUSH PRN ×2 (05:49→22:59)
[2020-04-23] MEDS ORDERED: Magnesium Sulfate/Water 4 GM in Premix Bag 1 BAG IV ONE (07:21)
[2020-04-23] MEDS ORDERED: Sodium Chloride 0.45% 1,000 ML IV SCH (08:15)
[2020-04-23] MEDS: Sodium Phosphate 30 MMOLE in Sodium Chloride 0.9% 250 ML IV SCH ×2 (10:50→13:01)
--- NOTE | 2020-04-23 16:14 | PCM.PN ---
- General Info Date of Service: 04/23/20 Admission Dx/Problem (Free Text): Admission Diagnosis/Problem Admission Diagnosis/Problem Diabetic ketoacidosis Subjective Update: Patient continues to be lethargic. She does know that she has left the hospital in [place]. - Review of Systems General: Reports: Weakness, Fatigue HEENT: Reports: No Symptoms Pulmonary: Reports: No Symptoms Cardiovascular: Reports: No Symptoms Gastrointestinal: Reports: No Symptoms Musculoskeletal: Reports: No Symptoms - Patient Data Vitals - Most Recent: Last Vital Signs Temp 97.9 F 04/23/20 12:00 Pulse 109 H 04/23/20 11:30 Resp 23 H 04/23/20 12:00 BP 121/85 04/23/20 12:00 Pulse Ox 100 04/23/20 12:00 Weight - Most Recent: 114 lb 8 oz I&O - Last 24 Hours: Intake & Output 04/23/20 04/23/20 04/23/20 06:59 14:59 22:59 Intake Total 1311 592 Output Total 1450 950 Balance -139 -950 592 Lab Results Last 24 Hours: Laboratory Results - last 24 hr 04/22/20 04/22/20 04/22/20 Range/Units 15:10 18:07 19:16 WBC (3.98-10.04) K/mm3 RBC (3.98-5.22) M/mm3 Hgb (11.2-15.7) gm/dl Hct (34.1-44.9) % MCV (79.4-94.8) fl MCH (25.6-32.2) pg MCHC (32.2-35.5) g/dl RDW Std Deviation (36.4-46.3) fL Plt Count (182-369) K/mm3 MPV (9.4-12.3) fl Neut % (Auto) (34.0-71.1) % Lymph % (Auto) (19.3-51.7) % Yell % (Auto) (4.7-12.5) % Eos % (Auto) (0.7-5.8) Baso % (Auto) (0.1-1.2) % Neut # (Auto) (1.56-6.13) K/mm3 Lymph # (Auto) (1.18-3.74) K/mm3 Yell # (Auto) (0.24-0.36) K/mm3 Eos # (Auto) (0.04-0.36) K/mm3 Baso # (Auto) (0.01-0.08) K/mm3 Manual Slide Review VBG pH 7.28 L (7.30-7.40) Sodium (136-145) mEq/L Potassium (3.5-5.1) mEq/L Chloride (98-107) mEq/L Carbon Dioxide (21-32) mEq/L Anion Gap (5-15) BUN (7-18) mg/dL Creatinine (0.55-1.02) mg/dL Est Cr Clr Drug Dosing mL/min Estimated GFR (MDRD) (>60) mL/min BUN/Creatinine Ratio (14-18) Glucose 415 H (74-106) mg/dL POC Glucose (70-105) mg/dL Lactic Acid (0.4-2.0) mmol/L Calcium (8.5-10.1) mg/dL Phosphorus (2.6-4.7) mg/dL Magnesium (1.8-2.4) mg/dl Ketones 17.77 (0.0-0.3) mM 04/22/20 04/22/20 04/22/20 Range/Units 19:20 19:37 20:43 WBC (3.98-10.04) K/mm3 RBC (3.98-5.22) M/mm3 Hgb (11.2-15.7) gm/dl Hct (34.1-44.9) % MCV (79.4-94.8) fl MCH (25.6-32.2) pg MCHC (32.2-35.5) g/dl RDW Std Deviation (36.4-46.3) fL Plt Count (182-369) K/mm3 MPV (9.4-12.3) fl Neut % (Auto) (34.0-71.1) % Lymph % (Auto) (19.3-51.7) % Yell % (Auto) (4.7-12.5) % Eos % (Auto) (0.7-5.8) Baso % (Auto) (0.1-1.2) % Neut # (Auto) (1.56-6.13) K/mm3 Lymph # (Auto) (1.18-3.74) K/mm3 Yell # (Auto) (0.24-0.36) K/mm3 Eos # (Auto) (0.04-0.36) K/mm3 Baso # (Auto) (0.01-0.08) K/mm3 Manual Slide Review VBG pH (7.30-7.40) Sodium 140 (136-145) mEq/L Potassium 4.1 (3.5-5.1) mEq/L Chloride 105 (98-107) mEq/L Carbon Dioxide 12 L (21-32) mEq/L Anion Gap 27.1 H (5-15) BUN 64 H (7-18) mg/dL Creatinine 1.8 H (0.55-1.02) mg/dL Est Cr Clr Drug Dosing 37.67 mL/min Estimated GFR (MDRD) 32 (>60) mL/min BUN/Creatinine Ratio 35.6 H (14-18) Glucose 353 H (74-106) mg/dL POC Glucose 313 H 224 H (70-105) mg/dL Lactic Acid (0.4-2.0) mmol/L Calcium 8.0 L (8.5-10.1) mg/dL Phosphorus (2.6-4.7) mg/dL Magnesium 1.9 (1.8-2.4) mg/dl Ketones (0.0-0.3) mM 04/22/20 04/22/20 04/22/20 Range/Units 21:40 22:48 22:59 WBC (3.98-10.04) K/mm3 RBC (3.98-5.22) M/mm3 Hgb (11.2-15.7) gm/dl Hct (34.1-44.9) % MCV (79.4-94.8) fl MCH (25.6-32.2) pg MCHC (32.2-35.5) g/dl RDW Std Deviation (36.4-46.3) fL Plt Count (182-369) K/mm3 MPV (9.4-12.3) fl Neut % (Auto) (34.0-71.1) % Lymph % (Auto) (19.3-51.7) % Yell % (Auto) (4.7-12.5) % Eos % (Auto) (0.7-5.8) Baso % (Auto) (0.1-1.2) % Neut # (Auto) (1.56-6.13) K/mm3 Lymph # (Auto) (1.18-3.74) K/mm3 Yell # (Auto) (0.24-0.36) K/mm3 Eos # (Auto) (0.04-0.36) K/mm3 Baso # (Auto) (0.01-0.08) K/mm3 Manual Slide Review VBG pH (7.30-7.40) Sodium 144 (136-145) mEq/L Potassium 3.6 (3.5-5.1) mEq/L Chloride 111 H (98-107) mEq/L Carbon Dioxide 19 L (21-32) mEq/L Anion Gap 17.6 H (5-15) BUN 56 H (7-18) mg/dL Creatinine 1.6 H (0.55-1.02) mg/dL Est Cr Clr Drug Dosing 39.89 mL/min Estimated GFR (MDRD) 37 (>60) mL/min BUN/Creatinine Ratio 35.0 H (14-18) Glucose 130 H (74-106) mg/dL POC Glucose 151 H 118 H (70-105) mg/dL Lactic Acid (0.4-2.0) mmol/L Calcium 8.1 L (8.5-10.1) mg/dL Phosphorus (2.6-4.7) mg/dL Magnesium 1.9 (1.8-2.4) mg/dl Ketones (0.0-0.3) mM 04/22/20 04/22/20 04/23/20 Range/Units 22:59 23:49 00:52 WBC (3.98-10.04) K/mm3 RBC (3.98-5.22) M/mm3 Hgb (11.2-15.7) gm/dl Hct (34.1-44.9) % MCV (79.4-94.8) fl MCH (25.6-32.2) pg MCHC (32.2-35.5) g/dl RDW Std Deviation (36.4-46.3) fL Plt Count (182-369) K/mm3 MPV (9.4-12.3) fl Neut % (Auto) (34.0-71.1) % Lymph % (Auto) (19.3-51.7) % Yell % (Auto) (4.7-12.5) % Eos % (Auto) (0.7-5.8) Baso % (Auto) (0.1-1.2) % Neut # (Auto) (1.56-6.13) K/mm3 Lymph # (Auto) (1.18-3.74) K/mm3 Yell # (Auto) (0.24-0.36) K/mm3 Eos # (Auto) (0.04-0.36) K/mm3 Baso # (Auto) (0.01-0.08) K/mm3 Manual Slide Review VBG pH (7.30-7.40) Sodium (136-145) mEq/L Potassium (3.5-5.1) mEq/L Chloride (98-107) mEq/L Carbon Dioxide (21-32) mEq/L Anion Gap (5-15) BUN (7-18) mg/dL Creatinine (0.55-1.02) mg/dL Est Cr Clr Drug Dosing mL/min Estimated GFR (MDRD) (>60) mL/min BUN/Creatinine Ratio (14-18) Glucose (74-106) mg/dL POC Glucose 129 H 155 H (70-105) mg/dL Lactic Acid 1.4 (0.4-2.0) mmol/L Calcium (8.5-10.1) mg/dL Phosphorus (2.6-4.7) mg/dL Magnesium (1.8-2.4) mg/dl Ketones (0.0-0.3) mM 04/23/20 04/23/20 04/23/20 Range/Units 01:44 02:41 03:30 WBC (3.98-10.04) K/mm3 RBC (3.98-5.22) M/mm3 Hgb (11.2-15.7) gm/dl Hct (34.1-44.9) % MCV (79.4-94.8) fl MCH (25.6-32.2) pg MCHC (32.2-35.5) g/dl RDW Std Deviation (36.4-46.3) fL Plt Count (182-369) K/mm3 MPV (9.4-12.3) fl Neut % (Auto) (34.0-71.1) % Lymph % (Auto) (19.3-51.7) % Yell % (Auto) (4.7-12.5) % Eos % (Auto) (0.7-5.8) Baso % (Auto) (0.1-1.2) % Neut # (Auto) (1.56-6.13) K/mm3 Lymph # (Auto) (1.18-3.74) K/mm3 Yell # (Auto) (0.24-0.36) K/mm3 Eos # (Auto) (0.04-0.36) K/mm3 Baso # (Auto) (0.01-0.08) K/mm3 Manual Slide Review VBG pH (7.30-7.40) Sodium 138 (136-145) mEq/L Potassium 5.1 D (3.5-5.1) mEq/L Chloride 107 (98-107) mEq/L Carbon Dioxide 15 L (21-32) mEq/L Anion Gap 21.1 H (5-15) BUN 50 H (7-18) mg/dL Creatinine 1.5 H (0.55-1.02) mg/dL Est Cr Clr Drug Dosing 42.92 mL/min Estimated GFR (MDRD) 40 (>60) mL/min BUN/Creatinine Ratio 33.3 H (14-18) Glucose 349 H (74-106) mg/dL POC Glucose 217 H 261 H (70-105) mg/dL Lactic Acid (0.4-2.0) mmol/L Calcium 8.0 L (8.5-10.1) mg/dL Phosphorus (2.6-4.7) mg/dL Magnesium 1.7 L (1.8-2.4) mg/dl Ketones (0.0-0.3) mM 04/23/20 04/23/20 04/23/20 Range/Units 03:31 04:38 05:42 WBC (3.98-10.04) K/mm3 RBC (3.98-5.22) M/mm3 Hgb (11.2-15.7) gm/dl Hct (34.1-44.9) % MCV (79.4-94.8) fl MCH (25.6-32.2) pg MCHC (32.2-35.5) g/dl RDW Std Deviation (36.4-46.3) fL Plt Count (182-369) K/mm3 MPV (9.4-12.3) fl Neut % (Auto) (34.0-71.1) % Lymph % (Auto) (19.3-51.7) % Yell % (Auto) (4.7-12.5) % Eos % (Auto) (0.7-5.8) Baso % (Auto) (0.1-1.2) % Neut # (Auto) (1.56-6.13) K/mm3 Lymph # (Auto) (1.18-3.74) K/mm3 Yell # (Auto) (0.24-0.36) K/mm3 Eos # (Auto) (0.04-0.36) K/mm3 Baso # (Auto) (0.01-0.08) K/mm3 Manual Slide Review VBG pH (7.30-7.40) Sodium (136-145) mEq/L Potassium (3.5-5.1) mEq/L Chloride (98-107) mEq/L Carbon Dioxide (21-32) mEq/L Anion Gap (5-15) BUN (7-18) mg/dL Creatinine (0.55-1.02) mg/dL Est Cr Clr Drug Dosing mL/min Estimated GFR (MDRD) (>60) mL/min BUN/Creatinine Ratio (14-18) Glucose (74-106) mg/dL POC Glucose 318 H 392 H 397 H (70-105) mg/dL Lactic Acid (0.4-2.0) mmol/L Calcium (8.5-10.1) mg/dL Phosphorus (2.6-4.7) mg/dL Magnesium (1.8-2.4) mg/dl Ketones (0.0-0.3) mM 04/23/20 04/23/20 04/23/20 Range/Units 06:37 07:03 07:03 WBC 14.08 H (3.98-10.04) K/mm3 RBC 3.56 L (3.98-5.22) M/mm3 Hgb 10.5 L (11.2-15.7) gm/dl Hct 32.4 L (34.1-44.9) % MCV 91.0 D (79.4-94.8) fl MCH 29.5 (25.6-32.2) pg MCHC 32.4 (32.2-35.5) g/dl RDW Std Deviation 45.3 (36.4-46.3) fL Plt Count 153 L (182-369) K/mm3 MPV 10.4 (9.4-12.3) fl Neut % (Auto) 86.4 H (34.0-71.1) % Lymph % (Auto) 7.3 L (19.3-51.7) % Yell % (Auto) 5.9 (4.7-12.5) % Eos % (Auto) 0.1 L (0.7-5.8) Baso % (Auto) 0.1 (0.1-1.2) % Neut # (Auto) 12.17 H (1.56-6.13) K/mm3 Lymph # (Auto) 1.03 L (1.18-3.74) K/mm3 Yell # (Auto) 0.83 H (0.24-0.36) K/mm3 Eos # (Auto) 0.01 L (0.04-0.36) K/mm3 Baso # (Auto) 0.01 (0.01-0.08) K/mm3 Manual Slide Review Abnormal smear VBG pH (7.30-7.40) Sodium 139 (136-145) mEq/L Potassium 5.3 H (3.5-5.1) mEq/L Chloride 105 (98-107) mEq/L Carbon Dioxide 12 L (21-32) mEq/L Anion Gap 27.3 H (5-15) BUN 47 H (7-18) mg/dL Creatinine 1.3 H (0.55-1.02) mg/dL Est Cr Clr Drug Dosing 49.52 mL/min Estimated GFR (MDRD) 47 (>60) mL/min BUN/Creatinine Ratio 36.2 H (14-18) Glucose 414 H (74-106) mg/dL POC Glucose 396 H (70-105) mg/dL Lactic Acid (0.4-2.0) mmol/L Calcium 8.1 L (8.5-10.1) mg/dL Phosphorus (2.6-4.7) mg/dL Magnesium 1.7 L (1.8-2.4) mg/dl Ketones (0.0-0.3) mM 04/23/20 04/23/20 04/23/20 Range/Units 07:03 08:01 08:52 WBC (3.98-10.04) K/mm3 RBC (3.98-5.22) M/mm3 Hgb (11.2-15.7) gm/dl Hct (34.1-44.9) % MCV (79.4-94.8) fl MCH (25.6-32.2) pg MCHC (32.2-35.5) g/dl RDW Std Deviation (36.4-46.3) fL Plt Count (182-369) K/mm3 MPV (9.4-12.3) fl Neut % (Auto) (34.0-71.1) % Lymph % (Auto) (19.3-51.7) % Yell % (Auto) (4.7-12.5) % Eos % (Auto) (0.7-5.8) Baso % (Auto) (0.1-1.2) % Neut # (Auto) (1.56-6.13) K/mm3 Lymph # (Auto) (1.18-3.74) K/mm3 Yell # (Auto) (0.24-0.36) K/mm3 Eos # (Auto) (0.04-0.36) K/mm3 Baso # (Auto) (0.01-0.08) K/mm3 Manual Slide Review VBG pH (7.30-7.40) Sodium (136-145) mEq/L Potassium (3.5-5.1) mEq/L Chloride (98-107) mEq/L Carbon Dioxide (21-32) mEq/L Anion Gap (5-15) BUN (7-18) mg/dL Creatinine (0.55-1.02) mg/dL Est Cr Clr Drug Dosing mL/min Estimated GFR (MDRD) (>60) mL/min BUN/Creatinine Ratio (14-18) Glucose (74-106) mg/dL POC Glucose 395 H 399 H (70-105) mg/dL Lactic Acid (0.4-2.0) mmol/L Calcium (8.5-10.1) mg/dL Phosphorus 1.5 L (2.6-4.7) mg/dL Magnesium (1.8-2.4) mg/dl Ketones (0.0-0.3) mM 04/23/20 04/23/20 04/23/20 Range/Units 09:30 10:28 11:36 WBC (3.98-10.04) K/mm3 RBC (3.98-5.22) M/mm3 Hgb (11.2-15.7) gm/dl Hct (34.1-44.9) % MCV (79.4-94.8) fl MCH (25.6-32.2) pg MCHC (32.2-35.5) g/dl RDW Std Deviation (36.4-46.3) fL Plt Count (182-369) K/mm3 MPV (9.4-12.3) fl Neut % (Auto) (34.0-71.1) % Lymph % (Auto) (19.3-51.7) % Yell % (Auto) (4.7-12.5) % Eos % (Auto) (0.7-5.8) Baso % (Auto) (0.1-1.2) % Neut # (Auto) (1.56-6.13) K/mm3 Lymph # (Auto) (1.18-3.74) K/mm3 Yell # (Auto) (0.24-0.36) K/mm3 Eos # (Auto) (0.04-0.36) K/mm3 Baso # (Auto) (0.01-0.08) K/mm3 Manual Slide Review VBG pH (7.30-7.40) Sodium 139 (136-145) mEq/L Potassium 5.1 (3.5-5.1) mEq/L Chloride 105 (98-107) mEq/L Carbon Dioxide 11 L (21-32) mEq/L Anion Gap 28.1 H (5-15) BUN 40 H (7-18) mg/dL Creatinine 1.4 H (0.55-1.02) mg/dL Est Cr Clr Drug Dosing 45.99 mL/min Estimated GFR (MDRD) 43 (>60) mL/min BUN/Creatinine Ratio 28.6 H (14-18) Glucose 441 H 421 H 396 H (74-106) mg/dL POC Glucose (70-105) mg/dL Lactic Acid (0.4-2.0) mmol/L Calcium 8.2 L (8.5-10.1) mg/dL Phosphorus (2.6-4.7) mg/dL Magnesium 3.0 H (1.8-2.4) mg/dl Ketones (0.0-0.3) mM 04/23/20 04/23/20 04/23/20 Range/Units 11:38 12:05 12:44 WBC (3.98-10.04) K/mm3 RBC (3.98-5.22) M/mm3 Hgb (11.2-15.7) gm/dl Hct (34.1-44.9) % MCV (79.4-94.8) fl MCH (25.6-32.2) pg MCHC (32.2-35.5) g/dl RDW Std Deviation (36.4-46.3) fL Plt Count (182-369) K/mm3 MPV (9.4-12.3) fl Neut % (Auto) (34.0-71.1) % Lymph % (Auto) (19.3-51.7) % Yell % (Auto) (4.7-12.5) % Eos % (Auto) (0.7-5.8) Baso % (Auto) (0.1-1.2) % Neut # (Auto) (1.56-6.13) K/mm3 Lymph # (Auto) (1.18-3.74) K/mm3 Yell # (Auto) (0.24-0.36) K/mm3 Eos # (Auto) (0.04-0.36) K/mm3 Baso # (Auto) (0.01-0.08) K/mm3 Manual Slide Review VBG pH (7.30-7.40) Sodium (136-145) mEq/L Potassium (3.5-5.1) mEq/L Chloride (98-107) mEq/L Carbon Dioxide (21-32) mEq/L Anion Gap (5-15) BUN (7-18) mg/dL Creatinine (0.55-1.02) mg/dL Est Cr Clr Drug Dosing mL/min Estimated GFR (MDRD) (>60) mL/min BUN/Creatinine Ratio (14-18) Glucose 367 H (74-106) mg/dL POC Glucose 372 H 347 H (70-105) mg/dL Lactic Acid (0.4-2.0) mmol/L Calcium (8.5-10.1) mg/dL Phosphorus (2.6-4.7) mg/dL Magnesium (1.8-2.4) mg/dl Ketones (0.0-0.3) mM 04/23/20 04/23/20 04/23/20 Range/Units 13:03 14:04 14:59 WBC (3.98-10.04) K/mm3 RBC (3.98-5.22) M/mm3 Hgb (11.2-15.7) gm/dl Hct (34.1-44.9) % MCV (79.4-94.8) fl MCH (25.6-32.2) pg MCHC (32.2-35.5) g/dl RDW Std Deviation (36.4-46.3) fL Plt Count (182-369) K/mm3 MPV (9.4-12.3) fl Neut % (Auto) (34.0-71.1) % Lymph % (Auto) (19.3-51.7) % Yell % (Auto) (4.7-12.5) % Eos % (Auto) (0.7-5.8) Baso % (Auto) (0.1-1.2) % Neut # (Auto) (1.56-6.13) K/mm3 Lymph # (Auto) (1.18-3.74) K/mm3 Yell # (Auto) (0.24-0.36) K/mm3 Eos # (Auto) (0.04-0.36) K/mm3 Baso # (Auto) (0.01-0.08) K/mm3 Manual Slide Review VBG pH (7.30-7.40) Sodium (136-145) mEq/L Potassium (3.5-5.1) mEq/L Chloride (98-107) mEq/L Carbon Dioxide (21-32) mEq/L Anion Gap (5-15) BUN (7-18) mg/dL Creatinine (0.55-1.02) mg/dL Est Cr Clr Drug Dosing mL/min Estimated GFR (MDRD) (>60) mL/min BUN/Creatinine Ratio (14-18) Glucose (74-106) mg/dL POC Glucose 296 H 295 H 278 H (70-105) mg/dL Lactic Acid (0.4-2.0) mmol/L Calcium (8.5-10.1) mg/dL Phosphorus (2.6-4.7) mg/dL Magnesium (1.8-2.4) mg/dl Ketones (0.0-0.3) mM 05/24/20 Range/Units 15:02 WBC (3.98-10.04) K/mm3 RBC (3.98-5.22) M/mm3 Hgb (11.2-15.7) gm/dl Hct (34.1-44.9) % MCV (79.4-94.8) fl MCH (25.6-32.2) pg MCHC (32.2-35.5) g/dl RDW Std Deviation (36.4-46.3) fL Plt Count (182-369) K/mm3 MPV (9.4-12.3) fl Neut % (Auto) (34.0-71.1) % Lymph % (Auto) (19.3-51.7) % Yell % (Auto) (4.7-12.5) % Eos % (Auto) (0.7-5.8) Baso % (Auto) (0.1-1.2) % Neut # (Auto) (1.56-6.13) K/mm3 Lymph # (Auto) (1.18-3.74) K/mm3 Yell # (Auto) (0.24-0.36) K/mm3 Eos # (Auto) (0.04-0.36) K/mm3 Baso # (Auto) (0.01-0.08) K/mm3 Manual Slide Review VBG pH (7.30-7.40) Sodium 141 (136-145) mEq/L Potassium 4.9 (3.5-5.1) mEq/L Chloride 107 (98-107) mEq/L Carbon Dioxide 14 L (21-32) mEq/L Anion Gap 24.9 H (5-15) BUN 31 H (7-18) mg/dL Creatinine 1.3 H (0.55-1.02) mg/dL Est Cr Clr Drug Dosing 49.52 mL/min Estimated GFR (MDRD) 47 (>60) mL/min BUN/Creatinine Ratio 23.8 H (14-18) Glucose 291 H (74-106) mg/dL POC Glucose (70-105) mg/dL Lactic Acid (0.4-2.0) mmol/L Calcium 7.2 L (8.5-10.1) mg/dL Phosphorus (2.6-4.7) mg/dL Magnesium 2.7 H (1.8-2.4) mg/dl Ketones (0.0-0.3) mM Med Orders - Current: Current Medications Hydromorphone HCl (Dilaudid) 0.5 mg IVPUSH Q2H PRN PRN Reason: Pain Last Admin: 04/23/20 05:49 Dose: 0.5 mg Insulin Human Regular 100 unit (/ Sodium Chloride) 100 mls @ 3 mls/hr IV TITRATE TONIO; Protocol Last Titration: 04/23/20 15:51 Dose: 6 units/hr, 6 mls/hr Potassium Chloride/Dextrose/Sod Cl (D5 1/2 Ns W/ 20 Meq/L Kcl) 1,000 mls @ 250 mls/hr IV ASDIRECTED TONIO Last Infusion: 04/23/20 04:04 Dose: 200 mls/hr Sodium Chloride (Sodium Chloride 0.45%) 1,000 mls @ 200 mls/hr IV ASDIRECTED TONIO Potassium Chloride/Sodium Chloride (1/2 Ns With 20 Meq Kcl) 1,000 mls @ 300 mls /hr IV ASDIRECTED TONIO Last Admin: 04/23/20 15:47 Dose: 300 mls/hr Lorazepam (Ativan) 1 mg IV Q2H PRN PRN Reason: Anxiety Last Admin: 04/22/20 19:38 Dose: 1 mg Ondansetron HCl (Zofran) 4 mg IV Q4H PRN PRN Reason: Nausea/Vomiting Sodium Chloride (Saline Flush) 10 ml FLUSH ASDIRECTED PRN PRN Reason: Keep Vein Open Last Admin: 04/22/20 12:15 Dose: 10 ml Discontinued Medications Sodium Chloride (Normal Saline) 1,000 mls @ 999 mls/hr IV ONETIME TONIO Last Admin: 04/22/20 12:14 Dose: 999 mls/hr Sodium Chloride (Normal Saline) Confirm Administered Dose 1,000 mls @ as directed .ROUTE .STK-MED ONE Stop: 04/22/20 12:35 Last Admin: 04/22/20 12:52 Dose: Not Given Sodium Chloride (Normal Saline) 1,000 mls @ 999 mls/hr IV ONETIME ONE Stop: 04/22/20 15:30 Last Admin: 04/22/20 13:20 Dose: 999 mls/hr Sodium Chloride (Normal Saline) 1,000 mls @ 999 mls/hr IV ONETIME ONE Stop: 04/22/20 15:32 Last Admin: 04/22/20 14:33 Dose: 999 mls/hr Lactated Ringer's (Ringers, Lactated) 1,000 mls @ 500 mls/hr IV ONETIME ONE Stop: 04/22/20 17:25 Last Admin: 04/22/20 15:29 Dose: 500 mls/hr Lactated Ringer's (Ringers, Lactated) 1,000 mls @ 500 mls/hr IV ONETIME ONE Stop: 04/22/20 20:11 Last Admin: 04/22/20 18:14 Dose: 500 mls/hr Potassium Chloride/Sodium Chloride (1/2 Ns With 20 Meq Kcl) 1,000 mls @ 250 mls /hr IV ASDIRECTED TONIO Last Infusion: 04/23/20 10:28 Dose: 300 mls/hr Potassium Chloride/Dextrose/Sod Cl (D5 1/2 Ns W/ 20 Meq/L Kcl) 1,000 mls @ 200 mls/hr IV ASDIRECTED TONIO Last Infusion: 04/23/20 00:50 Dose: 250 mls/hr Potassium Chloride 10 meq/ (Premix) 100 mls @ 100 mls/hr IV Q1H TONIO Stop: 04/23/20 01:59 Last Admin: 04/23/20 01:22 Dose: 100 mls/hr Magnesium Sulfate 4 gm/ Premix 50 mls @ 12.5 mls/hr IV ONETIME ONE Stop: 04/23/20 11:20 Last Infusion: 04/23/20 10:55 Dose: 12.5 mls/hr Sodium Phosphate 30 mmole/ (Sodium Chloride) 260 mls @ 130 mls/hr IV Q2H TONIO Stop: 04/23/20 14:59 Last Admin: 04/23/20 13:01 Dose: 130 mls/hr Insulin Human Regular (Humulin R) 5 unit IVPUSH ONETIME ONE; Protocol Stop: 04/22/20 11:57 Last Admin: 04/22/20 12:14 Dose: 5 unit Lorazepam (Ativan) 1 mg IVPUSH ONETIME ONE Stop: 04/22/20 12:07 Last Admin: 04/22/20 12:14 Dose: 1 mg Lorazepam (Ativan) 1 mg IVPUSH ONETIME ONE Stop: 04/22/20 17:07 Last Admin: 04/22/20 17:15 Dose: 1 mg - Exam General: Lethargic HEENT: Pupils Equal, Pupils Reactive, EOMI, Mucous Membr. Moist/[place] Neck: Supple Lungs: Clear to Auscultation, Normal Respiratory Effort Cardiovascular: Regular Rhythm, Tachycardia GI/Abdominal Exam: Normal Bowel Sounds, Soft, No Distention, Tender (Mild diffuse tenderness). No: Guarding, Rigid, Rebound Extremities: Normal Inspection, Normal Range of Motion, Non-Tender, No Pedal Edema, Normal Capillary Refill Skin: Warm, Dry, Intact Psy/Mental Status: Alert, Normal Affect, Normal Mood Sepsis Event Note - Evaluation Sepsis Screening Result: No Definite Risk - Focused Exam Vital Signs: Vital Signs Temp Pulse Resp BP BP Pulse Ox 04/23/20 12:00 97.9 F 23 H 121/85 100 04/23/20 11:30 109 H 13 100 04/23/20 11:00 101 H 21 H 99 04/23/20 10:30 102 H 22 H 100 04/23/20 10:00 103 H 25 H 98 04/23/20 09:30 116 H 12 99 04/23/20 09:00 107 H 24 H 98 04/23/20 08:30 109 H 28 H 97 04/23/20 08:01 116 H 22 H 97 04/23/20 08:00 97.6 F 115 H 25 H 116/66 116/66 97 04/23/20 07:59 111 H 25 H 97 05/24/20 07:30 119 H 20 98 04/23/20 07:00 105 H 21 H 98 04/23/20 06:30 103 H 21 H 98 04/23/20 06:00 104 H 24 H 100 04/23/20 05:00 121 H 20 98 Date Exam was Performed: 04/23/20 Time Exam was Performed: 16:08 - Problem List Review Problem List Initiated/Reviewed/Updated: Yes - My Orders Last 24 Hours: My Active Orders 04/22/20 19:12 Oxygen Therapy [RC] .PRN Up With Assistance [RC] ASDIRECTED VTE/DVT Education [RC] Vital Signs [RC] Q4HR LORazepam [Ativan] 1 mg IV Q2H PRN Ondansetron [Zofran] 4 mg IV Q4H PRN Resuscitation Status Routine 04/22/20 19:19 Urinary Catheter Assessment [RC] Q4HR 04/22/20 19:30 Insert Chao Catheter [Insert Urinary Catheter] [OM.PC] Q24H 04/22/20 20:36 Communication Order [RC] ASDIRECTED 04/22/20 20:39 HYDROmorphone [Dilaudid] 0.5 mg IVPUSH Q2H PRN 04/22/20 23:45 D5 1/2 NS w/ 20 mEq/L KCl 1,000 ml IV ASDIRECTED 04/22/20 Dinner Nothing per Oral Now Diet [DIET] 04/23/20 08:15 Sodium Chloride 0.45% 1,000 ml IV ASDIRECTED 04/23/20 10:45 Sodium Chloride 0.45% with KCl [1/2 NS with 20 mEq KCl] 1,000 ml IV ASDIRECTED 04/23/20 15:30 GLUCOSE RANDOM [CHEM] Q1H 04/23/20 16:30 GLUCOSE RANDOM [CHEM] Q1H 04/23/20 17:30 GLUCOSE RANDOM [CHEM] Q1H 04/23/20 18:30 GLUCOSE RANDOM [CHEM] Q1H 04/23/20 19:00 BASIC METABOLIC PANEL,BMP [CHEM] Q4H MAGNESIUM [CHEM] Q4H 04/23/20 19:30 GLUCOSE RANDOM [CHEM] Q1H 04/23/20 20:30 GLUCOSE RANDOM [CHEM] Q1H 04/23/20 21:30 GLUCOSE RANDOM [CHEM] Q1H 04/23/20 22:30 GLUCOSE RANDOM [CHEM] Q1H 04/23/20 23:30 GLUCOSE RANDOM [CHEM] Q1H - Plan Plan:: Diabetic ketoacidosis Type 1 diabetes * Unknown cause at this time secondary to altered mental status * Acidosis and hyperglycemia improved overnight, but patient required increasing doses of insulin and had worsening acidosis during the late morning. Required insulin to be increased to 6 units/h. Anion gap has improved to 24. Likely that will require another 12 hours to fully reverse anion gap and stabilize her metabolic acidosis. * History of noncompliance * History of drug use and gastroparesis * Multiple admissions for DKA Plan * Admit to ICU on diabetic protocol * N.p.o. * IV insulin drip per protocol * Half-normal saline with 20 mEq of KCl at 300 mL an hour * Decrease glucose by 50 to 70 mg/dL/h until blood sugars reach 200 * When blood sugars reach 200 switch IV fluids to D5 half-normal saline with 20 mEq per KCl at 200 mL an hour * When anion gap closes switch to subcu insulin and start oral intake * BMP and magnesium every 2 to 4 hours * Fingerstick blood sugars hourly Acute kidney injury * BUN 71-->31, creatinine 2.2-->1.3, estimated GFR 25-->47 * Likely secondary to hypovolemia Plan * Continue IV hydration * Avoid nephrotoxic medications. * Follow CMP. Gastroparesis * Patient was supposed to see gastroenterology in January. * Patient has a history of cyclic vomiting. Plan * Compazine alternating with Zofran for nausea Anxiety * Patient appears more anxious. Plan * Ativan 1 mg IV every 2 hours as needed anxiety Chronic pain syndrome * Patient is on Suboxone Plan * Restart Suboxone when taking orally VTE prophylaxis with Lovenox CODE STATUS: Full code
[2020-04-23] MEDS: D5 1/2 NS w/ 20 mEq/L KCl 1,000 ML IV SCH (17:28)
[2020-04-24] MEDS: D5 1/2 NS w/ 20 mEq/L KCl 1,000 ML IV SCH (00:12)
[2020-04-24] MEDS: LORazepam 2 MG/ML SDV IV PRN ×2 (01:23→15:48)
[2020-04-24] MEDS: HYDROmorphone 0.5 MG/0.5 ML Syringe IVPUSH PRN ×2 (05:02→20:17)
[2020-04-24 05:54] LABS: HEMOGLOBIN A1C 11.3 % (4.50-6.20)
[2020-04-24] MEDS ORDERED: 50% Dextrose in Water 50 ML Syringe IVPUSH PRN (06:57)
[2020-04-24] MEDS: Insulin Lispro 100 Units/ML 3 ML Vial SUBCUT SCH ×4 (07:16→22:08)
--- NOTE | 2020-04-24 07:21 | PCM.PN ---
- General Info Date of Service: 04/24/20 Admission Dx/Problem (Free Text): Admission Diagnosis/Problem Admission Diagnosis/Problem Diabetic ketoacidosis Subjective Update: Patient is more awake and arousable today. She continues to be confused, lethargic, and difficult to keep her attention. She answers simple questions, but still cannot give a history about recent events. - Review of Systems General: Reports: Weakness, Fatigue. Denies: Fever HEENT: Reports: No Symptoms Pulmonary: Reports: No Symptoms Gastrointestinal: Reports: Abdominal Pain Musculoskeletal: Reports: No Symptoms Skin: Reports: No Symptoms - Patient Data Vitals - Most Recent: Last Vital Signs Temp 98.7 F 04/24/20 04:00 Pulse 95 04/24/20 07:00 Resp 19 04/24/20 07:00 BP 131/88 04/24/20 04:00 Pulse Ox 97 04/24/20 07:00 Weight - Most Recent: 118 lb I&O - Last 24 Hours: Intake & Output 04/23/20 04/24/20 04/24/20 22:59 06:59 14:59 Intake Total 1012 2071 Output Total 1175 1650 Balance -163 421 Lab Results Last 24 Hours: Laboratory Results - last 24 hr 04/23/20 04/23/20 04/23/20 Range/Units 07:03 07:03 07:03 WBC (3.98-10.04) K/mm3 RBC (3.98-5.22) M/mm3 Hgb (11.2-15.7) gm/dl Hct (34.1-44.9) % MCV (79.4-94.8) fl MCH (25.6-32.2) pg MCHC (32.2-35.5) g/dl RDW Std Deviation (36.4-46.3) fL Plt Count (182-369) K/mm3 MPV (9.4-12.3) fl Neut % (Auto) (34.0-71.1) % Lymph % (Auto) (19.3-51.7) % Gilchrist % (Auto) (4.7-12.5) % Eos % (Auto) (0.7-5.8) Baso % (Auto) (0.1-1.2) % Neut # (Auto) (1.56-6.13) K/mm3 Lymph # (Auto) (1.18-3.74) K/mm3 Gilchrist # (Auto) (0.24-0.36) K/mm3 Eos # (Auto) (0.04-0.36) K/mm3 Baso # (Auto) (0.01-0.08) K/mm3 Manual Slide Review Abnormal smear Sodium 139 (136-145) mEq/L Potassium 5.3 H (3.5-5.1) mEq/L Chloride 105 (98-107) mEq/L Carbon Dioxide 12 L (21-32) mEq/L Anion Gap 27.3 H (5-15) BUN 47 H (7-18) mg/dL Creatinine 1.3 H (0.55-1.02) mg/dL Est Cr Clr Drug Dosing 49.52 mL/min Estimated GFR (MDRD) 47 (>60) mL/min BUN/Creatinine Ratio 36.2 H (14-18) Glucose 414 H (74-106) mg/dL POC Glucose (70-105) mg/dL Hemoglobin A1c (4.50-6.20) % Calcium 8.1 L (8.5-10.1) mg/dL Phosphorus 1.5 L (2.6-4.7) mg/dL Magnesium 1.7 L (1.8-2.4) mg/dl 04/23/20 04/23/20 04/23/20 Range/Units 08:01 08:52 09:30 WBC (3.98-10.04) K/mm3 RBC (3.98-5.22) M/mm3 Hgb (11.2-15.7) gm/dl Hct (34.1-44.9) % MCV (79.4-94.8) fl MCH (25.6-32.2) pg MCHC (32.2-35.5) g/dl RDW Std Deviation (36.4-46.3) fL Plt Count (182-369) K/mm3 MPV (9.4-12.3) fl Neut % (Auto) (34.0-71.1) % Lymph % (Auto) (19.3-51.7) % Gilchrist % (Auto) (4.7-12.5) % Eos % (Auto) (0.7-5.8) Baso % (Auto) (0.1-1.2) % Neut # (Auto) (1.56-6.13) K/mm3 Lymph # (Auto) (1.18-3.74) K/mm3 Gilchrist # (Auto) (0.24-0.36) K/mm3 Eos # (Auto) (0.04-0.36) K/mm3 Baso # (Auto) (0.01-0.08) K/mm3 Manual Slide Review Sodium (136-145) mEq/L Potassium (3.5-5.1) mEq/L Chloride (98-107) mEq/L Carbon Dioxide (21-32) mEq/L Anion Gap (5-15) BUN (7-18) mg/dL Creatinine (0.55-1.02) mg/dL Est Cr Clr Drug Dosing mL/min Estimated GFR (MDRD) (>60) mL/min BUN/Creatinine Ratio (14-18) Glucose 441 H (74-106) mg/dL POC Glucose 395 H 399 H (70-105) mg/dL Hemoglobin A1c (4.50-6.20) % Calcium (8.5-10.1) mg/dL Phosphorus (2.6-4.7) mg/dL Magnesium (1.8-2.4) mg/dl 04/23/20 04/23/20 04/23/20 Range/Units 10:28 11:36 11:38 WBC (3.98-10.04) K/mm3 RBC (3.98-5.22) M/mm3 Hgb (11.2-15.7) gm/dl Hct (34.1-44.9) % MCV (79.4-94.8) fl MCH (25.6-32.2) pg MCHC (32.2-35.5) g/dl RDW Std Deviation (36.4-46.3) fL Plt Count (182-369) K/mm3 MPV (9.4-12.3) fl Neut % (Auto) (34.0-71.1) % Lymph % (Auto) (19.3-51.7) % Gilchrist % (Auto) (4.7-12.5) % Eos % (Auto) (0.7-5.8) Baso % (Auto) (0.1-1.2) % Neut # (Auto) (1.56-6.13) K/mm3 Lymph # (Auto) (1.18-3.74) K/mm3 Gilchrist # (Auto) (0.24-0.36) K/mm3 Eos # (Auto) (0.04-0.36) K/mm3 Baso # (Auto) (0.01-0.08) K/mm3 Manual Slide Review Sodium 139 (136-145) mEq/L Potassium 5.1 (3.5-5.1) mEq/L Chloride 105 (98-107) mEq/L Carbon Dioxide 11 L (21-32) mEq/L Anion Gap 28.1 H (5-15) BUN 40 H (7-18) mg/dL Creatinine 1.4 H (0.55-1.02) mg/dL Est Cr Clr Drug Dosing 45.99 mL/min Estimated GFR (MDRD) 43 (>60) mL/min BUN/Creatinine Ratio 28.6 H (14-18) Glucose 421 H 396 H (74-106) mg/dL POC Glucose 372 H (70-105) mg/dL Hemoglobin A1c (4.50-6.20) % Calcium 8.2 L (8.5-10.1) mg/dL Phosphorus (2.6-4.7) mg/dL Magnesium 3.0 H (1.8-2.4) mg/dl 04/23/20 04/23/20 04/23/20 Range/Units 12:05 12:44 13:03 WBC (3.98-10.04) K/mm3 RBC (3.98-5.22) M/mm3 Hgb (11.2-15.7) gm/dl Hct (34.1-44.9) % MCV (79.4-94.8) fl MCH (25.6-32.2) pg MCHC (32.2-35.5) g/dl RDW Std Deviation (36.4-46.3) fL Plt Count (182-369) K/mm3 MPV (9.4-12.3) fl Neut % (Auto) (34.0-71.1) % Lymph % (Auto) (19.3-51.7) % Gilchrist % (Auto) (4.7-12.5) % Eos % (Auto) (0.7-5.8) Baso % (Auto) (0.1-1.2) % Neut # (Auto) (1.56-6.13) K/mm3 Lymph # (Auto) (1.18-3.74) K/mm3 Gilchrist # (Auto) (0.24-0.36) K/mm3 Eos # (Auto) (0.04-0.36) K/mm3 Baso # (Auto) (0.01-0.08) K/mm3 Manual Slide Review Sodium (136-145) mEq/L Potassium (3.5-5.1) mEq/L Chloride (98-107) mEq/L Carbon Dioxide (21-32) mEq/L Anion Gap (5-15) BUN (7-18) mg/dL Creatinine (0.55-1.02) mg/dL Est Cr Clr Drug Dosing mL/min Estimated GFR (MDRD) (>60) mL/min BUN/Creatinine Ratio (14-18) Glucose 367 H (74-106) mg/dL POC Glucose 347 H 296 H (70-105) mg/dL Hemoglobin A1c (4.50-6.20) % Calcium (8.5-10.1) mg/dL Phosphorus (2.6-4.7) mg/dL Magnesium (1.8-2.4) mg/dl 04/23/20 04/23/20 04/23/20 Range/Units 14:04 14:59 15:02 WBC (3.98-10.04) K/mm3 RBC (3.98-5.22) M/mm3 Hgb (11.2-15.7) gm/dl Hct (34.1-44.9) % MCV (79.4-94.8) fl MCH (25.6-32.2) pg MCHC (32.2-35.5) g/dl RDW Std Deviation (36.4-46.3) fL Plt Count (182-369) K/mm3 MPV (9.4-12.3) fl Neut % (Auto) (34.0-71.1) % Lymph % (Auto) (19.3-51.7) % Gilchrist % (Auto) (4.7-12.5) % Eos % (Auto) (0.7-5.8) Baso % (Auto) (0.1-1.2) % Neut # (Auto) (1.56-6.13) K/mm3 Lymph # (Auto) (1.18-3.74) K/mm3 Gilchrist # (Auto) (0.24-0.36) K/mm3 Eos # (Auto) (0.04-0.36) K/mm3 Baso # (Auto) (0.01-0.08) K/mm3 Manual Slide Review Sodium 141 (136-145) mEq/L Potassium 4.9 (3.5-5.1) mEq/L Chloride 107 (98-107) mEq/L Carbon Dioxide 14 L (21-32) mEq/L Anion Gap 24.9 H (5-15) BUN 31 H (7-18) mg/dL Creatinine 1.3 H (0.55-1.02) mg/dL Est Cr Clr Drug Dosing 49.52 mL/min Estimated GFR (MDRD) 47 (>60) mL/min BUN/Creatinine Ratio 23.8 H (14-18) Glucose 291 H (74-106) mg/dL POC Glucose 295 H 278 H (70-105) mg/dL Hemoglobin A1c (4.50-6.20) % Calcium 7.2 L (8.5-10.1) mg/dL Phosphorus (2.6-4.7) mg/dL Magnesium 2.7 H (1.8-2.4) mg/dl 04/23/20 04/23/20 04/23/20 Range/Units 16:06 17:07 17:57 WBC (3.98-10.04) K/mm3 RBC (3.98-5.22) M/mm3 Hgb (11.2-15.7) gm/dl Hct (34.1-44.9) % MCV (79.4-94.8) fl MCH (25.6-32.2) pg MCHC (32.2-35.5) g/dl RDW Std Deviation (36.4-46.3) fL Plt Count (182-369) K/mm3 MPV (9.4-12.3) fl Neut % (Auto) (34.0-71.1) % Lymph % (Auto) (19.3-51.7) % Gilchrist % (Auto) (4.7-12.5) % Eos % (Auto) (0.7-5.8) Baso % (Auto) (0.1-1.2) % Neut # (Auto) (1.56-6.13) K/mm3 Lymph # (Auto) (1.18-3.74) K/mm3 Gilchrist # (Auto) (0.24-0.36) K/mm3 Eos # (Auto) (0.04-0.36) K/mm3 Baso # (Auto) (0.01-0.08) K/mm3 Manual Slide Review Sodium (136-145) mEq/L Potassium (3.5-5.1) mEq/L Chloride (98-107) mEq/L Carbon Dioxide (21-32) mEq/L Anion Gap (5-15) BUN (7-18) mg/dL Creatinine (0.55-1.02) mg/dL Est Cr Clr Drug Dosing mL/min Estimated GFR (MDRD) (>60) mL/min BUN/Creatinine Ratio (14-18) Glucose (74-106) mg/dL POC Glucose 242 H 199 H 185 H (70-105) mg/dL Hemoglobin A1c (4.50-6.20) % Calcium (8.5-10.1) mg/dL Phosphorus (2.6-4.7) mg/dL Magnesium (1.8-2.4) mg/dl 04/23/20 04/23/20 04/23/20 Range/Units 18:49 18:59 19:50 WBC (3.98-10.04) K/mm3 RBC (3.98-5.22) M/mm3 Hgb (11.2-15.7) gm/dl Hct (34.1-44.9) % MCV (79.4-94.8) fl MCH (25.6-32.2) pg MCHC (32.2-35.5) g/dl RDW Std Deviation (36.4-46.3) fL Plt Count (182-369) K/mm3 MPV (9.4-12.3) fl Neut % (Auto) (34.0-71.1) % Lymph % (Auto) (19.3-51.7) % Gilchrist % (Auto) (4.7-12.5) % Eos % (Auto) (0.7-5.8) Baso % (Auto) (0.1-1.2) % Neut # (Auto) (1.56-6.13) K/mm3 Lymph # (Auto) (1.18-3.74) K/mm3 Gilchrist # (Auto) (0.24-0.36) K/mm3 Eos # (Auto) (0.04-0.36) K/mm3 Baso # (Auto) (0.01-0.08) K/mm3 Manual Slide Review Sodium 141 (136-145) mEq/L Potassium 4.0 (3.5-5.1) mEq/L Chloride 108 H (98-107) mEq/L Carbon Dioxide 19 L (21-32) mEq/L Anion Gap 18.0 H (5-15) BUN 26 H (7-18) mg/dL Creatinine 1.2 H (0.55-1.02) mg/dL Est Cr Clr Drug Dosing 53.65 mL/min Estimated GFR (MDRD) 51 (>60) mL/min BUN/Creatinine Ratio 21.7 H (14-18) Glucose 231 H (74-106) mg/dL POC Glucose 176 H 182 H (70-105) mg/dL Hemoglobin A1c (4.50-6.20) % Calcium 7.3 L (8.5-10.1) mg/dL Phosphorus (2.6-4.7) mg/dL Magnesium 2.4 (1.8-2.4) mg/dl 04/23/20 04/23/20 04/23/20 Range/Units 20:54 21:46 22:46 WBC (3.98-10.04) K/mm3 RBC (3.98-5.22) M/mm3 Hgb (11.2-15.7) gm/dl Hct (34.1-44.9) % MCV (79.4-94.8) fl MCH (25.6-32.2) pg MCHC (32.2-35.5) g/dl RDW Std Deviation (36.4-46.3) fL Plt Count (182-369) K/mm3 MPV (9.4-12.3) fl Neut % (Auto) (34.0-71.1) % Lymph % (Auto) (19.3-51.7) % Gilchrist % (Auto) (4.7-12.5) % Eos % (Auto) (0.7-5.8) Baso % (Auto) (0.1-1.2) % Neut # (Auto) (1.56-6.13) K/mm3 Lymph # (Auto) (1.18-3.74) K/mm3 Gilchrist # (Auto) (0.24-0.36) K/mm3 Eos # (Auto) (0.04-0.36) K/mm3 Baso # (Auto) (0.01-0.08) K/mm3 Manual Slide Review Sodium (136-145) mEq/L Potassium (3.5-5.1) mEq/L Chloride (98-107) mEq/L Carbon Dioxide (21-32) mEq/L Anion Gap (5-15) BUN (7-18) mg/dL Creatinine (0.55-1.02) mg/dL Est Cr Clr Drug Dosing mL/min Estimated GFR (MDRD) (>60) mL/min BUN/Creatinine Ratio (14-18) Glucose (74-106) mg/dL POC Glucose 208 H 203 H 194 H (70-105) mg/dL Hemoglobin A1c (4.50-6.20) % Calcium (8.5-10.1) mg/dL Phosphorus (2.6-4.7) mg/dL Magnesium (1.8-2.4) mg/dl 04/23/20 04/24/20 04/24/20 Range/Units 23:47 00:05 00:55 WBC (3.98-10.04) K/mm3 RBC (3.98-5.22) M/mm3 Hgb (11.2-15.7) gm/dl Hct (34.1-44.9) % MCV (79.4-94.8) fl MCH (25.6-32.2) pg MCHC (32.2-35.5) g/dl RDW Std Deviation (36.4-46.3) fL Plt Count (182-369) K/mm3 MPV (9.4-12.3) fl Neut % (Auto) (34.0-71.1) % Lymph % (Auto) (19.3-51.7) % Gilchrist % (Auto) (4.7-12.5) % Eos % (Auto) (0.7-5.8) Baso % (Auto) (0.1-1.2) % Neut # (Auto) (1.56-6.13) K/mm3 Lymph # (Auto) (1.18-3.74) K/mm3 Gilchrist # (Auto) (0.24-0.36) K/mm3 Eos # (Auto) (0.04-0.36) K/mm3 Baso # (Auto) (0.01-0.08) K/mm3 Manual Slide Review Sodium 141 (136-145) mEq/L Potassium 3.6 (3.5-5.1) mEq/L Chloride 110 H (98-107) mEq/L Carbon Dioxide 21 (21-32) mEq/L Anion Gap 13.6 (5-15) BUN 19 H (7-18) mg/dL Creatinine 1.1 H (0.55-1.02) mg/dL Est Cr Clr Drug Dosing 58.53 mL/min Estimated GFR (MDRD) 57 (>60) mL/min BUN/Creatinine Ratio 17.3 (14-18) Glucose 186 H (74-106) mg/dL POC Glucose 176 H 160 H (70-105) mg/dL Hemoglobin A1c (4.50-6.20) % Calcium 7.2 L (8.5-10.1) mg/dL Phosphorus (2.6-4.7) mg/dL Magnesium 2.0 (1.8-2.4) mg/dl 04/24/20 04/24/20 04/24/20 Range/Units 01:54 02:52 03:50 WBC (3.98-10.04) K/mm3 RBC (3.98-5.22) M/mm3 Hgb (11.2-15.7) gm/dl Hct (34.1-44.9) % MCV (79.4-94.8) fl MCH (25.6-32.2) pg MCHC (32.2-35.5) g/dl RDW Std Deviation (36.4-46.3) fL Plt Count (182-369) K/mm3 MPV (9.4-12.3) fl Neut % (Auto) (34.0-71.1) % Lymph % (Auto) (19.3-51.7) % Gilchrist % (Auto) (4.7-12.5) % Eos % (Auto) (0.7-5.8) Baso % (Auto) (0.1-1.2) % Neut # (Auto) (1.56-6.13) K/mm3 Lymph # (Auto) (1.18-3.74) K/mm3 Gilchrist # (Auto) (0.24-0.36) K/mm3 Eos # (Auto) (0.04-0.36) K/mm3 Baso # (Auto) (0.01-0.08) K/mm3 Manual Slide Review Sodium (136-145) mEq/L Potassium (3.5-5.1) mEq/L Chloride (98-107) mEq/L Carbon Dioxide (21-32) mEq/L Anion Gap (5-15) BUN (7-18) mg/dL Creatinine (0.55-1.02) mg/dL Est Cr Clr Drug Dosing mL/min Estimated GFR (MDRD) (>60) mL/min BUN/Creatinine Ratio (14-18) Glucose (74-106) mg/dL POC Glucose 133 H 118 H 96 (70-105) mg/dL Hemoglobin A1c (4.50-6.20) % Calcium (8.5-10.1) mg/dL Phosphorus (2.6-4.7) mg/dL Magnesium (1.8-2.4) mg/dl 04/24/20 04/24/20 04/24/20 Range/Units 04:53 05:05 05:05 WBC 9.84 (3.98-10.04) K/mm3 RBC 3.33 L (3.98-5.22) M/mm3 Hgb 9.9 L (11.2-15.7) gm/dl Hct 30.0 L (34.1-44.9) % MCV 90.1 (79.4-94.8) fl MCH 29.7 (25.6-32.2) pg MCHC 33.0 (32.2-35.5) g/dl RDW Std Deviation 45.4 (36.4-46.3) fL Plt Count 124 L (182-369) K/mm3 MPV 9.9 (9.4-12.3) fl Neut % (Auto) 80.1 H (34.0-71.1) % Lymph % (Auto) 14.6 L (19.3-51.7) % Gilchrist % (Auto) 4.7 (4.7-12.5) % Eos % (Auto) 0.3 L (0.7-5.8) Baso % (Auto) 0.0 L (0.1-1.2) % Neut # (Auto) 7.88 H (1.56-6.13) K/mm3 Lymph # (Auto) 1.44 (1.18-3.74) K/mm3 Gilchrist # (Auto) 0.46 H (0.24-0.36) K/mm3 Eos # (Auto) 0.03 L (0.04-0.36) K/mm3 Baso # (Auto) 0.00 L (0.01-0.08) K/mm3 Manual Slide Review Sodium 140 (136-145) mEq/L Potassium 4.0 (3.5-5.1) mEq/L Chloride 109 H (98-107) mEq/L Carbon Dioxide 20 L (21-32) mEq/L Anion Gap 15.0 (5-15) BUN 14 (7-18) mg/dL Creatinine 0.9 (0.55-1.02) mg/dL Est Cr Clr Drug Dosing 73.72 mL/min Estimated GFR (MDRD) > 60 (>60) mL/min BUN/Creatinine Ratio 15.6 (14-18) Glucose 162 H (74-106) mg/dL POC Glucose 139 H (70-105) mg/dL Hemoglobin A1c (4.50-6.20) % Calcium 7.6 L (8.5-10.1) mg/dL Phosphorus (2.6-4.7) mg/dL Magnesium 1.9 (1.8-2.4) mg/dl 04/24/20 04/24/20 04/24/20 Range/Units 05:05 06:00 06:48 WBC (3.98-10.04) K/mm3 RBC (3.98-5.22) M/mm3 Hgb (11.2-15.7) gm/dl Hct (34.1-44.9) % MCV (79.4-94.8) fl MCH (25.6-32.2) pg MCHC (32.2-35.5) g/dl RDW Std Deviation (36.4-46.3) fL Plt Count (182-369) K/mm3 MPV (9.4-12.3) fl Neut % (Auto) (34.0-71.1) % Lymph % (Auto) (19.3-51.7) % Gilchrist % (Auto) (4.7-12.5) % Eos % (Auto) (0.7-5.8) Baso % (Auto) (0.1-1.2) % Neut # (Auto) (1.56-6.13) K/mm3 Lymph # (Auto) (1.18-3.74) K/mm3 Gilchrist # (Auto) (0.24-0.36) K/mm3 Eos # (Auto) (0.04-0.36) K/mm3 Baso # (Auto) (0.01-0.08) K/mm3 Manual Slide Review Sodium (136-145) mEq/L Potassium (3.5-5.1) mEq/L Chloride (98-107) mEq/L Carbon Dioxide (21-32) mEq/L Anion Gap (5-15) BUN (7-18) mg/dL Creatinine (0.55-1.02) mg/dL Est Cr Clr Drug Dosing mL/min Estimated GFR (MDRD) (>60) mL/min BUN/Creatinine Ratio (14-18) Glucose (74-106) mg/dL POC Glucose 180 H 190 H (70-105) mg/dL Hemoglobin A1c 11.30 H (4.50-6.20) % Calcium (8.5-10.1) mg/dL Phosphorus (2.6-4.7) mg/dL Magnesium (1.8-2.4) mg/dl Med Orders - Current: Current Medications Dextrose/Water (Dextrose 50% In Water) 50 ml IVPUSH ASDIRECTED PRN PRN Reason: Hypoglycemia Hydromorphone HCl (Dilaudid) 0.5 mg IVPUSH Q2H PRN PRN Reason: Pain Last Admin: 04/24/20 05:02 Dose: 0.5 mg Insulin Human Regular 100 unit (/ Sodium Chloride) 100 mls @ 3 mls/hr IV TITRATE TONIO; Protocol Last Titration: 04/24/20 03:50 Dose: 0 units/hr, 0 mls/hr Potassium Chloride/Sodium Chloride (1/2 Ns With 20 Meq Kcl) 1,000 mls @ 300 mls /hr IV ASDIRECTED TONIO Last Admin: 04/23/20 15:47 Dose: 300 mls/hr Potassium Chloride/Dextrose/Sod Cl (D5 1/2 Ns W/ 20 Meq/L Kcl) 1,000 mls @ 150 mls/hr IV ASDIRECTED TONIO Last Admin: 04/24/20 00:12 Dose: 150 mls/hr Insulin Glargine (Lantus) 15 unit SUBCUT DAILY TONIO Insulin Human Lispro (Humalog) 0 unit SUBCUT QIDACANDBED TONIO; Protocol Last Admin: 04/24/20 07:16 Dose: 1 unit Lorazepam (Ativan) 1 mg IV Q2H PRN PRN Reason: Anxiety Last Admin: 04/24/20 01:23 Dose: 1 mg Ondansetron HCl (Zofran) 4 mg IV Q4H PRN PRN Reason: Nausea/Vomiting Sodium Chloride (Saline Flush) 10 ml FLUSH ASDIRECTED PRN PRN Reason: Keep Vein Open Last Admin: 04/22/20 12:15 Dose: 10 ml Discontinued Medications Sodium Chloride (Normal Saline) 1,000 mls @ 999 mls/hr IV ONETIME TONIO Last Admin: 04/22/20 12:14 Dose: 999 mls/hr Sodium Chloride (Normal Saline) Confirm Administered Dose 1,000 mls @ as directed .ROUTE .STK-MED ONE Stop: 04/22/20 12:35 Last Admin: 04/22/20 12:52 Dose: Not Given Sodium Chloride (Normal Saline) 1,000 mls @ 999 mls/hr IV ONETIME ONE Stop: 04/22/20 15:30 Last Admin: 04/22/20 13:20 Dose: 999 mls/hr Sodium Chloride (Normal Saline) 1,000 mls @ 999 mls/hr IV ONETIME ONE Stop: 04/22/20 15:32 Last Admin: 04/22/20 14:33 Dose: 999 mls/hr Lactated Ringer's (Ringers, Lactated) 1,000 mls @ 500 mls/hr IV ONETIME ONE Stop: 04/22/20 17:25 Last Admin: 04/22/20 15:29 Dose: 500 mls/hr Lactated Ringer's (Ringers, Lactated) 1,000 mls @ 500 mls/hr IV ONETIME ONE Stop: 04/22/20 20:11 Last Admin: 04/22/20 18:14 Dose: 500 mls/hr Potassium Chloride/Sodium Chloride (1/2 Ns With 20 Meq Kcl) 1,000 mls @ 250 mls /hr IV ASDIRECTED TONIO Last Infusion: 04/23/20 10:28 Dose: 300 mls/hr Potassium Chloride/Dextrose/Sod Cl (D5 1/2 Ns W/ 20 Meq/L Kcl) 1,000 mls @ 200 mls/hr IV ASDIRECTED TONIO Last Infusion: 04/23/20 00:50 Dose: 250 mls/hr Potassium Chloride/Dextrose/Sod Cl (D5 1/2 Ns W/ 20 Meq/L Kcl) 1,000 mls @ 250 mls/hr IV ASDIRECTED TONIO Last Infusion: 04/23/20 04:04 Dose: 200 mls/hr Potassium Chloride 10 meq/ (Premix) 100 mls @ 100 mls/hr IV Q1H TONIO Stop: 04/23/20 01:59 Last Admin: 04/23/20 01:22 Dose: 100 mls/hr Magnesium Sulfate 4 gm/ Premix 50 mls @ 12.5 mls/hr IV ONETIME ONE Stop: 04/23/20 11:20 Last Infusion: 04/23/20 10:55 Dose: 12.5 mls/hr Sodium Chloride (Sodium Chloride 0.45%) 1,000 mls @ 200 mls/hr IV ASDIRECTED TONIO Sodium Phosphate 30 mmole/ (Sodium Chloride) 260 mls @ 130 mls/hr IV Q2H TONIO Stop: 04/23/20 14:59 Last Admin: 04/23/20 13:01 Dose: 130 mls/hr Insulin Human Regular (Humulin R) 5 unit IVPUSH ONETIME ONE; Protocol Stop: 04/22/20 11:57 Last Admin: 04/22/20 12:14 Dose: 5 unit Lorazepam (Ativan) 1 mg IVPUSH ONETIME ONE Stop: 04/22/20 12:07 Last Admin: 04/22/20 12:14 Dose: 1 mg Lorazepam (Ativan) 1 mg IVPUSH ONETIME ONE Stop: 04/22/20 17:07 Last Admin: 04/22/20 17:15 Dose: 1 mg - Exam General: Lethargic HEENT: Pupils Equal Neck: Supple Lungs: Clear to Auscultation Cardiovascular: Regular Rhythm, Tachycardia GI/Abdominal Exam: Soft, No Distention, Tender (Diffuse tenderness worse in the epigastrium), Abnormal Bowel Sounds (Decreased). No: Guarding, Rigid, Rebound Extremities: Normal Inspection, Normal Range of Motion, Non-Tender, No Pedal Edema, Normal Capillary Refill Skin: Warm, Dry, Intact Sepsis Event Note - Evaluation Sepsis Screening Result: No Definite Risk - Focused Exam Vital Signs: Vital Signs Temp Pulse Resp BP BP Pulse Ox 04/24/20 07:00 95 19 97 04/24/20 06:00 100 12 98 04/24/20 05:00 102 H 12 97 04/24/20 04:00 98.7 F 109 H 21 H 131/88 131/88 95 04/24/20 03:00 110 H 22 H 93 L 04/24/20 02:00 110 H 21 H 92 L 04/24/20 01:00 107 H 19 96 04/24/20 00:00 98.8 F 19 128/91 H 95 04/23/20 22:00 104 H 98 04/23/20 21:00 99 99 04/23/20 20:00 98.7 F 14 136/99 H 99 Date Exam was Performed: 04/24/20 Time Exam was Performed: 09:18 - Problem List Review Problem List Initiated/Reviewed/Updated: Yes - My Orders Last 24 Hours: My Active Orders 04/23/20 10:45 Sodium Chloride 0.45% with KCl [1/2 NS with 20 mEq KCl] 1,000 ml IV ASDIRECTED 04/23/20 17:15 D5 1/2 NS w/ 20 mEq/L KCl 1,000 ml IV ASDIRECTED 04/24/20 06:57 Dextrose 50% in Water 50 ml IVPUSH ASDIRECTED PRN 04/24/20 07:00 Insulin Lispro [HumaLOG] See Protocol SUBCUT QIDACANDBED 04/24/20 09:00 Insulin Glarg,Human.Rec.Analog [LantUS] 15 unit SUBCUT DAILY - Plan Plan:: Diabetic ketoacidosis Type 1 diabetes * Unknown cause at this time secondary to altered mental status * Acidosis and hyperglycemia improved overnight, but patient required increasing doses of insulin and had worsening acidosis during the late morning. Required insulin to be increased to 6 units/h. Anion gap has improved to 24. Likely that will require another 12 hours to fully reverse anion gap and stabilize her metabolic acidosis. Anion gap closed overnight and patient's blood sugars are in the mid 100s. * History of noncompliance * History of drug use and gastroparesis * Multiple admissions for DKA Plan * Admit to ICU on diabetic protocol * Start diabetic diet * Stop IV insulin * Stop IV fluids and switch to oral * Lantus 15 units daily * Initially sliding scale insulin based on blood sugars and oral intake. * BMP and magnesium every morning * Fingerstick blood sugars every 2 Metabolic encephalopathy * Patient continues to be confused. She continues to state she is in [place] at the hospital. * Concern for multiple episodes of DKA with the most recent the pH below 7 causing possible permanent encephalopathy. Plan * Continue to control blood sugars * Speech therapy if necessary in the morning depending on how well she recovers in the next 24 hours. Acute kidney injury -resolved * BUN 71-->31-->14, creatinine 2.2-->1.3-->0.9, estimated GFR 25-->47-->60 * Likely secondary to hypovolemia and acidosis Plan * DC IV fluid * Avoid nephrotoxic medications. * Follow CMP. Gastroparesis * Patient was supposed to see gastroenterology in January. * Patient has a history of cyclic vomiting. Plan * Zofran for nausea Anxiety * Patient appears less anxious. Plan * Ativan 1 mg IV every 2 hours as needed anxiety Chronic pain syndrome * Patient is on Suboxone Plan * Restart Suboxone when taking orally VTE prophylaxis with Lovenox CODE STATUS: Full code
[2020-04-24] MEDS ORDERED: Insulin Glarg,Human.Rec.Analog 100 Unit/ML SUBCUT SCH (09:00)
[2020-04-24] MEDS: Acetaminophen/oxyCODONE 325-5 MG Tab PO PRN ×2 (16:32→22:10)
[2020-04-24] MEDS: Sodium Chloride 0.9% 10 ML Syringe FLUSH PRN (20:17)
[2020-04-25] MEDS: HYDROmorphone 0.5 MG/0.5 ML Syringe IVPUSH PRN ×5 (02:00→22:17)
[2020-04-25] MEDS: LORazepam 2 MG/ML SDV IV PRN ×3 (04:15→22:16)
[2020-04-25] MEDS: Acetaminophen/oxyCODONE 325-5 MG Tab PO PRN ×2 (06:03→12:53)
[2020-04-25] MEDS: Insulin Lispro 100 Units/ML 3 ML Vial SUBCUT SCH ×5 (06:17→21:05)
[2020-04-25] MEDS: Insulin Glarg,Human.Rec.Analog 100 Unit/ML SUBCUT SCH (08:45)
[2020-04-25] MEDS ORDERED: ALBUTEROL INHALER INH PRN (09:37)
[2020-04-25] MEDS ORDERED: Promethazine 25 MG Tab PO PRN (09:37)
[2020-04-25] MEDS ORDERED: VARENICLINE TARTRATE PO SCH (09:45)
[2020-04-25] MEDS ORDERED: Pantoprazole 40 MG Vial IVPUSH ONE (10:30)
--- NOTE | 2020-04-25 16:04 | PCM.PN ---
- General Info Date of Service: 04/25/20 Admission Dx/Problem (Free Text): Admission Diagnosis/Problem Admission Diagnosis/Problem Diabetic ketoacidosis Subjective Update: Patient is feeling better and has more strength. She ate a better breakfast. She continues to have severe pain, but this is chronic in nature. She does not have her Suboxone here. Hemoglobin did drop this morning. Nursing reports that she had a black stool her first day hospitalized. She has not had another bowel movement since admission. She is more awake now and tells me that she was vomiting blood. She is not sure house her blood sugars got so high. She has decreased her Tresiba to 6 units a day from 27. She has a history of chronic abdominal pain and is following with gastroenterology. Functional Status: Denies: Pain Controlled - Review of Systems General: Reports: Weakness, Fatigue HEENT: Reports: No Symptoms Pulmonary: Reports: No Symptoms Cardiovascular: Reports: No Symptoms Gastrointestinal: Reports: Abdominal Pain, Decreased Appetite Musculoskeletal: Reports: Back Pain - Patient Data Vitals - Most Recent: Last Vital Signs Temp 98.6 F 04/25/20 12:00 Pulse 85 04/25/20 06:00 Resp 20 04/25/20 12:00 BP 104/87 04/25/20 12:00 Pulse Ox 97 04/25/20 12:00 Weight - Most Recent: 114 lb I&O - Last 24 Hours: Intake & Output 04/25/20 04/25/20 04/25/20 06:59 14:59 22:59 Intake Total 510 Output Total 600 Balance -90 Lab Results Last 24 Hours: Laboratory Results - last 24 hr 04/24/20 04/24/20 04/24/20 Range/Units 15:56 18:05 20:08 WBC (3.98-10.04) K/mm3 RBC (3.98-5.22) M/mm3 Hgb (11.2-15.7) gm/dl Hct (34.1-44.9) % MCV (79.4-94.8) fl MCH (25.6-32.2) pg MCHC (32.2-35.5) g/dl RDW Std Deviation (36.4-46.3) fL Plt Count (182-369) K/mm3 MPV (9.4-12.3) fl Neut % (Auto) (34.0-71.1) % Lymph % (Auto) (19.3-51.7) % [place] % (Auto) (4.7-12.5) % Eos % (Auto) (0.7-5.8) Baso % (Auto) (0.1-1.2) % Neut # (Auto) (1.56-6.13) K/mm3 Lymph # (Auto) (1.18-3.74) K/mm3 [place] # (Auto) (0.24-0.36) K/mm3 Eos # (Auto) (0.04-0.36) K/mm3 Baso # (Auto) (0.01-0.08) K/mm3 Manual Slide Review Sodium (136-145) mEq/L Potassium (3.5-5.1) mEq/L Chloride (98-107) mEq/L Carbon Dioxide (21-32) mEq/L Anion Gap (5-15) BUN (7-18) mg/dL Creatinine (0.55-1.02) mg/dL Est Cr Clr Drug Dosing mL/min Estimated GFR (MDRD) (>60) mL/min BUN/Creatinine Ratio (14-18) Glucose (74-106) mg/dL POC Glucose 172 H 175 H 180 H (70-105) mg/dL Calcium (8.5-10.1) mg/dL Phosphorus (2.6-4.7) mg/dL Magnesium (1.8-2.4) mg/dl Total Bilirubin (0.2-1.0) mg/dL AST (15-37) U/L ALT (14-59) U/L Alkaline Phosphatase (46-116) U/L Total Protein (6.4-8.2) g/dl Albumin (3.4-5.0) g/dl Globulin gm/dL Albumin/Globulin Ratio (1-2) 04/24/20 04/25/20 04/25/20 Range/Units 22:05 06:12 08:08 WBC 5.76 (3.98-10.04) K/mm3 RBC 2.85 L (3.98-5.22) M/mm3 Hgb 8.4 L D (11.2-15.7) gm/dl Hct 26.4 L (34.1-44.9) % MCV 92.6 (79.4-94.8) fl MCH 29.5 (25.6-32.2) pg MCHC 31.8 L (32.2-35.5) g/dl RDW Std Deviation 45.3 (36.4-46.3) fL Plt Count 82 L (182-369) K/mm3 MPV 10.0 (9.4-12.3) fl Neut % (Auto) 56.7 (34.0-71.1) % Lymph % (Auto) 36.3 (19.3-51.7) % [place] % (Auto) 4.0 L (4.7-12.5) % Eos % (Auto) 2.8 (0.7-5.8) Baso % (Auto) 0.0 L (0.1-1.2) % Neut # (Auto) 3.27 (1.56-6.13) K/mm3 Lymph # (Auto) 2.09 (1.18-3.74) K/mm3 [place] # (Auto) 0.23 L (0.24-0.36) K/mm3 Eos # (Auto) 0.16 (0.04-0.36) K/mm3 Baso # (Auto) 0.00 L (0.01-0.08) K/mm3 Manual Slide Review Abnormal smear Sodium (136-145) mEq/L Potassium (3.5-5.1) mEq/L Chloride (98-107) mEq/L Carbon Dioxide (21-32) mEq/L Anion Gap (5-15) BUN (7-18) mg/dL Creatinine (0.55-1.02) mg/dL Est Cr Clr Drug Dosing mL/min Estimated GFR (MDRD) (>60) mL/min BUN/Creatinine Ratio (14-18) Glucose (74-106) mg/dL POC Glucose 210 H 130 H (70-105) mg/dL Calcium (8.5-10.1) mg/dL Phosphorus (2.6-4.7) mg/dL Magnesium (1.8-2.4) mg/dl Total Bilirubin (0.2-1.0) mg/dL AST (15-37) U/L ALT (14-59) U/L Alkaline Phosphatase (46-116) U/L Total Protein (6.4-8.2) g/dl Albumin (3.4-5.0) g/dl Globulin gm/dL Albumin/Globulin Ratio (1-2) 04/25/20 04/25/20 04/25/20 Range/Units 08:08 11:28 15:26 WBC (3.98-10.04) K/mm3 RBC (3.98-5.22) M/mm3 Hgb 8.9 L (11.2-15.7) gm/dl Hct 28.1 L (34.1-44.9) % MCV (79.4-94.8) fl MCH (25.6-32.2) pg MCHC (32.2-35.5) g/dl RDW Std Deviation (36.4-46.3) fL Plt Count (182-369) K/mm3 MPV (9.4-12.3) fl Neut % (Auto) (34.0-71.1) % Lymph % (Auto) (19.3-51.7) % [place] % (Auto) (4.7-12.5) % Eos % (Auto) (0.7-5.8) Baso % (Auto) (0.1-1.2) % Neut # (Auto) (1.56-6.13) K/mm3 Lymph # (Auto) (1.18-3.74) K/mm3 [place] # (Auto) (0.24-0.36) K/mm3 Eos # (Auto) (0.04-0.36) K/mm3 Baso # (Auto) (0.01-0.08) K/mm3 Manual Slide Review Sodium 142 (136-145) mEq/L Potassium 3.7 (3.5-5.1) mEq/L Chloride 108 H (98-107) mEq/L Carbon Dioxide 27 (21-32) mEq/L Anion Gap 10.7 (5-15) BUN 6 L (7-18) mg/dL Creatinine 0.6 (0.55-1.02) mg/dL Est Cr Clr Drug Dosing 106.83 mL/min Estimated GFR (MDRD) > 60 (>60) mL/min BUN/Creatinine Ratio 10.0 L (14-18) Glucose 184 H (74-106) mg/dL POC Glucose 269 H (70-105) mg/dL Calcium 7.6 L (8.5-10.1) mg/dL Phosphorus 2.1 L (2.6-4.7) mg/dL Magnesium 1.8 (1.8-2.4) mg/dl Total Bilirubin 0.5 (0.2-1.0) mg/dL AST 32 (15-37) U/L ALT 27 (14-59) U/L Alkaline Phosphatase 44 L (46-116) U/L Total Protein 3.9 L (6.4-8.2) g/dl Albumin 1.8 L (3.4-5.0) g/dl Globulin 2.1 gm/dL Albumin/Globulin Ratio 0.9 L (1-2) Med Orders - Current: Current Medications Albuterol (Proventil Hfa) 0 gm INH Q6HR PRN PRN Reason: Dyspnea Dextrose/Water (Dextrose 50% In Water) 50 ml IVPUSH ASDIRECTED PRN PRN Reason: Hypoglycemia Hydromorphone HCl (Dilaudid) 0.5 mg IVPUSH Q2H PRN PRN Reason: Pain Last Admin: 04/25/20 09:35 Dose: 0.5 mg Insulin Glargine (Lantus) 10 unit SUBCUT DAILY [facility] Last Admin: 04/25/20 08:45 Dose: 10 unit Insulin Human Lispro (Humalog) 0 unit SUBCUT QIDACANDBED [facility]; Protocol Last Admin: 04/25/20 11:29 Dose: 3 unit Lorazepam (Ativan) 1 mg IV Q2H PRN PRN Reason: Anxiety Last Admin: 04/25/20 04:15 Dose: 1 mg Non-Formulary Medication (Buprenorphine Hcl/Naloxone Hcl [Buprenorp-Nalox 8-2 Mg Sl Film]) 20 mg SL DAILY [facility] Non-Formulary Medication (Fluticasone Propionate [Flovent Hfa]) 44 mcg INH Q12HR [facility] Non-Formulary Medication (Mupirocin Oint [Bactroban Oint]) 22 gm TP TID [facility] Non-Formulary Medication (Varenicline Tartrate [Chantix]) 1 each PO ASDIRECTED [facility] Ondansetron HCl (Zofran) 4 mg IV Q4H PRN PRN Reason: Nausea/Vomiting Last Admin: 04/24/20 09:20 Dose: 4 mg Oxycodone/Acetaminophen (Percocet 325-5 Mg) 1 tab PO Q4H PRN PRN Reason: Pain (moderate 4-6) Last Admin: 04/25/20 12:53 Dose: 1 tab Pantoprazole Sodium (Protonix Iv) 40 mg IVPUSH Q12H [facility] Promethazine HCl (Phenergan) 25 mg PO Q4H PRN PRN Reason: Nausea Last Admin: 04/25/20 11:26 Dose: 25 mg Sodium Chloride (Saline Flush) 10 ml FLUSH ASDIRECTED PRN PRN Reason: Keep Vein Open Last Admin: 04/24/20 20:17 Dose: 10 ml Discontinued Medications Sodium Chloride (Normal Saline) 1,000 mls @ 999 mls/hr IV ONETIME [facility] Last Admin: 04/22/20 12:14 Dose: 999 mls/hr Insulin Human Regular 100 unit (/ Sodium Chloride) 100 mls @ 3 mls/hr IV TITRATE [facility]; Protocol Last Titration: 04/24/20 03:50 Dose: 0 units/hr, 0 mls/hr Sodium Chloride (Normal Saline) Confirm Administered Dose 1,000 mls @ as directed .ROUTE .STK-MED ONE Stop: 04/22/20 12:35 Last Admin: 04/22/20 12:52 Dose: Not Given Sodium Chloride (Normal Saline) 1,000 mls @ 999 mls/hr IV ONETIME ONE Stop: 04/22/20 15:30 Last Admin: 04/22/20 13:20 Dose: 999 mls/hr Sodium Chloride (Normal Saline) 1,000 mls @ 999 mls/hr IV ONETIME ONE Stop: 04/22/20 15:32 Last Admin: 04/22/20 14:33 Dose: 999 mls/hr Lactated Ringer's (Ringers, Lactated) 1,000 mls @ 500 mls/hr IV ONETIME ONE Stop: 04/22/20 17:25 Last Admin: 04/22/20 15:29 Dose: 500 mls/hr Lactated Ringer's (Ringers, Lactated) 1,000 mls @ 500 mls/hr IV ONETIME ONE Stop: 04/22/20 20:11 Last Admin: 04/22/20 18:14 Dose: 500 mls/hr Potassium Chloride/Sodium Chloride (1/2 Ns With 20 Meq Kcl) 1,000 mls @ 250 mls /hr IV ASDIRECTED [facility] Last Infusion: 04/23/20 10:28 Dose: 300 mls/hr Potassium Chloride/Dextrose/Sod Cl (D5 1/2 Ns W/ 20 Meq/L Kcl) 1,000 mls @ 200 mls/hr IV ASDIRECTED [facility] Last Infusion: 04/23/20 00:50 Dose: 250 mls/hr Potassium Chloride/Dextrose/Sod Cl (D5 1/2 Ns W/ 20 Meq/L Kcl) 1,000 mls @ 250 mls/hr IV ASDIRECTED [facility] Last Infusion: 04/23/20 04:04 Dose: 200 mls/hr Potassium Chloride 10 meq/ (Premix) 100 mls @ 100 mls/hr IV Q1H [facility] Stop: 04/23/20 01:59 Last Admin: 04/23/20 01:22 Dose: 100 mls/hr Magnesium Sulfate 4 gm/ Premix 50 mls @ 12.5 mls/hr IV ONETIME ONE Stop: 04/23/20 11:20 Last Infusion: 04/23/20 10:55 Dose: 12.5 mls/hr Sodium Chloride (Sodium Chloride 0.45%) 1,000 mls @ 200 mls/hr IV ASDIRECTED [facility] Sodium Phosphate 30 mmole/ (Sodium Chloride) 260 mls @ 130 mls/hr IV Q2H [facility] Stop: 04/23/20 14:59 Last Admin: 04/23/20 13:01 Dose: 130 mls/hr Potassium Chloride/Sodium Chloride (1/2 Ns With 20 Meq Kcl) 1,000 mls @ 300 mls /hr IV ASDIRECTED [facility] Last Admin: 04/23/20 15:47 Dose: 300 mls/hr Potassium Chloride/Dextrose/Sod Cl (D5 1/2 Ns W/ 20 Meq/L Kcl) 1,000 mls @ 150 mls/hr IV ASDIRECTED [facility] Last Admin: 04/24/20 00:12 Dose: 150 mls/hr Insulin Glargine (Lantus) 15 unit SUBCUT DAILY [facility] Last Admin: 04/24/20 07:59 Dose: 15 units Insulin Human Regular (Humulin R) 5 unit IVPUSH ONETIME ONE; Protocol Stop: 04/22/20 11:57 Last Admin: 04/22/20 12:14 Dose: 5 unit Lorazepam (Ativan) 1 mg IVPUSH ONETIME ONE Stop: 04/22/20 12:07 Last Admin: 04/22/20 12:14 Dose: 1 mg Lorazepam (Ativan) 1 mg IVPUSH ONETIME ONE Stop: 04/22/20 17:07 Last Admin: 04/22/20 17:15 Dose: 1 mg Pantoprazole Sodium (Protonix Iv) 80 mg IVPUSH BOLUS ONE Stop: 04/25/20 10:31 Last Admin: 04/25/20 11:25 Dose: 80 mg - Exam General: Alert, Oriented HEENT: Pupils Equal, Mucous Membr. Moist/[place] Neck: Supple Lungs: Clear to Auscultation, Normal Respiratory Effort Cardiovascular: Regular Rate, Regular Rhythm GI/Abdominal Exam: Soft, No Distention, Tender (Diffusely, worse in the epigastrium), Abnormal Bowel Sounds (Decreased) Sepsis Event Note - Evaluation Sepsis Screening Result: No Definite Risk - Focused Exam Vital Signs: Vital Signs Temp Pulse Resp BP BP Pulse Ox 04/25/20 12:00 98.6 F 20 104/87 97 04/25/20 08:00 98.8 F 18 109/71 99 04/25/20 06:00 85 16 98 04/25/20 05:35 92 7 L 129/87 99 04/25/20 05:00 87 16 97 04/25/20 04:00 98.2 F 20 114/82 98 Date Exam was Performed: 04/25/20 Time Exam was Performed: 15:58 - Problem List Review Problem List Initiated/Reviewed/Updated: Yes - My Orders Last 24 Hours: My Active Orders 04/24/20 15:00 Central Venous Line Discontinue [OM.PC] Routine One To One Therapy [BH] Routine 04/24/20 16:23 Acetaminophen/oxyCODONE [Percocet 325-5 MG] 1 tab PO Q4H PRN 04/24/20 19:20 PT Evaluation and Treatment [CONS] Routine 04/25/20 09:00 Insulin Glarg,Human.Rec.Analog [LantUS] 10 unit SUBCUT DAILY 04/25/20 09:04 Antiembolic Devices [RC] 09,21 SCD [Sequential Compression Device] [OM.PC] Routine 04/25/20 09:37 Albuterol [Proventil HFA] 0 gm INH Q6HR PRN Promethazine [Phenergan] 25 mg PO Q4H PRN 04/25/20 09:44 OCCULT BLOOD SCREEN [OP] Routine 04/25/20 09:45 Buprenorphine HCl/Naloxone HCl [Buprenorp-Nalox 8-2 mg Sl Film] 20 mg SL DAILY Varenicline Tartrate [Chantix] 1 each PO ASDIRECTED 04/25/20 09:54 H PYLORI STOOL ANTIGEN [MREF] Routine 04/25/20 12:00 Patient Status [ADT] Routine 04/25/20 15:00 Mupirocin Oint [Bactroban Oint] 22 gm TP TID 04/25/20 21:00 Fluticasone Propionate [Flovent HFA] 44 mcg INH Q12HR 04/25/20 22:00 Pantoprazole [ProTONIX IV] 40 mg IVPUSH Q12H 04/26/20 05:11 BASIC METABOLIC PANEL,BMP [CHEM] AM HEMOGLOBIN/HEMATOCRIT,HH [HEME] AM MAGNESIUM [CHEM] AM - Plan Plan:: Diabetic ketoacidosis Type 1 diabetes * Unknown cause at this time secondary to altered mental status * Acidosis and hyperglycemia improved overnight, but patient required increasing doses of insulin and had worsening acidosis during the late morning. Required insulin to be increased to 6 units/h. Anion gap has improved to 24. Likely that will require another 12 hours to fully reverse anion gap and stabilize her metabolic acidosis. Anion gap closed overnight and patient's blood sugars are in the mid 100s. * History of noncompliance * History of drug use and gastroparesis * Multiple admissions for DKA * Blood sugars much better controlled. * Patient states that she is only taking Tresiba 6 units daily and sliding scale insulin Plan * Changed to MedSurg status. * diabetic diet * Lantus 10 units daily * Humalog 2 units at the end of each meal if she takes more than 50% of her meal * Initially sliding scale insulin based on blood sugars and oral intake. * CBC, BMP, magnesium in the morning Anemia/possible upper GI bleed * Hemoglobin down to 8.4. * Some of this is likely hemodilution and some is from multiple blood draws. * Black stool first day of admission and patient has history of hematemesis * No subsequent episodes of either since the first day. * Patient has follow-up with gastroenterology early next month. Plan * Follow H&H * Protonix 80 mg IV push then 40 mg every 12 hours * Stool for fecal occult blood and H. pylori antigen Metabolic encephalopathy * Significant improvement in her mentation. * Concern for multiple episodes of DKA with the most recent the pH below 7 causing possible permanent encephalopathy. Plan * Continue to control blood sugars * Speech therapy if necessary in the morning depending on how well she recovers in the next 24 hours. Acute kidney injury -resolved * BUN 71-->31-->14-->0.6, creatinine 2.2-->1.3-->0.9-->0.6, estimated GFR 25--> 47-->60--> >60 * Likely secondary to hypovolemia and acidosis Plan * DC IV fluid * Avoid nephrotoxic medications. * Follow BMP. Gastroparesis * Patient was supposed to see gastroenterology in January. * Patient has a history of cyclic vomiting. Plan * Zofran for nausea Anxiety * Patient appears less anxious. Plan * Ativan 1 mg IV every 2 hours as needed anxiety Chronic pain syndrome * Patient is on Suboxone Plan * Restart Suboxone when available * Percocet and Dilaudid as needed VTE prophylaxis with Lovenox CODE STATUS: Full code
[2020-04-25] MEDS: NALOXONE PO SCH (16:52)
[2020-04-25] MEDS: MUPIROCIN TOP SCH ×2 (16:52→20:49)
[2020-04-25] MEDS: BUPRENORPHINE PO SCH (16:52)
[2020-04-25] MEDS: FLUTICASONE PROPIONATE 44 MCG INH SCH (20:48)
[2020-04-25] MEDS: Pantoprazole 40 MG Vial IVPUSH SCH (21:01)
[2020-04-26] MEDS: HYDROmorphone 0.5 MG/0.5 ML Syringe IVPUSH PRN (00:24)
[2020-04-26] MEDS: LORazepam 2 MG/ML SDV IV PRN ×3 (00:24→05:44)
[2020-04-26] MEDS: Insulin Lispro 100 Units/ML 3 ML Vial SUBCUT SCH ×4 (06:29→13:35)
[2020-04-26] MEDS: Insulin Glarg,Human.Rec.Analog 100 Unit/ML SUBCUT SCH (08:04)
[2020-04-26] MEDS: NALOXONE PO SCH (08:11)
[2020-04-26] MEDS: BUPRENORPHINE PO SCH (08:11)
[2020-04-26] MEDS: FLUTICASONE PROPIONATE 44 MCG INH SCH (08:23)
[2020-04-26] MEDS: MUPIROCIN TOP SCH (08:23)
[2020-04-26] MEDS: Pantoprazole 40 MG Vial IVPUSH SCH (10:40)
[2020-04-26] MEDS ORDERED: Pantoprazole 40 MG Tab.CR PO SCH (10:45)
[2020-04-26] MEDS ORDERED: Cephalexin 250 MG Cap PO SCH (13:00)
== END 2020-04-26 13:20 | disposition home or self-care (01) | DRG 637 ==
LOC: JD.ED 11:18 → JD.ICU 18:17
PROVIDERS: ADMIT Family Medicine; ATTEND Family Medicine
PROC: 05HM33Z Insertion of Infusion Device into Right Internal Jugular Vein, Percutaneous Approach (ICD-10-PCS; principal; 2020-04-22)
PROC: B543ZZA Ultrasonography of Right Jugular Veins, Guidance (ICD-10-PCS; 2020-04-22)
DX: E10.10 Type 1 diabetes mellitus with ketoacidosis without coma (principal); I10 Essential (primary) hypertension; Z86.711 Personal history of pulmonary embolism; G93.41 Metabolic encephalopathy; K58.0 Irritable bowel syndrome with diarrhea; M19.90 Unspecified osteoarthritis, unspecified site; G89.29 Other chronic pain; M54.9 Dorsalgia, unspecified; N17.9 Acute kidney failure, unspecified; E10.43 Type 1 diabetes mellitus with diabetic autonomic (poly)neuropathy; E87.6 Hypokalemia; Z86.14 Personal history of Methicillin resistant Staphylococcus aureus infection; K31.84 Gastroparesis; Z88.6 Allergy status to analgesic agent; Z20.828 Contact with and (suspected) exposure to other viral communicable diseases; Z91.048 Other nonmedicinal substance allergy status; E86.1 Hypovolemia; Z79.899 Other long term (current) drug therapy; E10.65 Type 1 diabetes mellitus with hyperglycemia; D64.9 Anemia, unspecified; F41.9 Anxiety disorder, unspecified; G89.4 Chronic pain syndrome; G43.909 Migraine, unspecified, not intractable, without status migrainosus; K21.9 Gastro-esophageal reflux disease without esophagitis; F32.9 Major depressive disorder, single episode, unspecified; Z91.040 Latex allergy status; Z88.5 Allergy status to narcotic agent; Z79.4 Long term (current) use of insulin; Z90.49 Acquired absence of other specified parts of digestive tract; Z91.14 Patient's other noncompliance with medication regimen
CPT/HCPCS: 36415; 36556; 36600 ×2; 36680; 71045; 80053; 80306; 80307; 81003; 82009; 82803 ×2; 82947; 83605; 85025; 87635; 93005 ×2; 96361; 96374; 96376; 99285; J1815 ×2; J2060 ×2; J7030 ×3; J7050; J7120 ×2; 51702; 80048; 81001; 82800; 82962; 83036; 83735; 84100; 85014; 85018; 87070; 87086; 87088; 87186; 87641; 93010; 97110-GP; 97162-GP; A9270-GY; C9113; J1170; J2405; J3475; J3480; J8597; U0002

== ENCOUNTER 2020-04-30 23:30 | Inpatient (IN) | payer MEDICAID ==
--- NOTE | 2020-04-30 23:41 | EDM.PDOC ---
ED HPI GENERAL MEDICAL PROBLEM - General Chief Complaint: Diabetic Complaint Stated Complaint: [facility] Time Seen by Provider: 04/30/20 23:41 - History of Present Illness INITIAL COMMENTS - FREE TEXT/NARRATIVE: 34-year-old female presents the emergency room with trouble with her diabetes. Patient was discharged from here on after being admitted with DKA. Since she has been home she has had high blood sugars her machine is consistently read high. Today she developed some nausea and vomiting she has been vomiting probably once every hour. Patient denies any chest pain or chest pressure no breathing difficulties or shortness of breath. Patient does not have any other complaints at this time. Abdomen Pain Score (Numeric/FACES): 8 - Related Data Allergies Allergy/AdvReac Type Severity Reaction Status Date / Time latex Allergy Mild Hives Verified 04/30/20 23:37 tramadol Allergy Mild Hives Verified 04/30/20 23:37 purex laundry soap Allergy Mild Hives Uncoded 04/30/20 23:37 Home Meds: Home Meds Buprenorphine HCl/Naloxone HCl [Buprenorp-Nalox 8-2 mg Sl Film] 20 mg SL DAILY 02/29/20 [History] Albuterol [Proair HFA] 2 puff INH Q6HR PRN 04/25/20 [History] Fluticasone Propionate [Flovent HFA] 44 mcg INH Q12HR 04/25/20 [History] Promethazine [Phenergan] 25 mg PO Q4H PRN 04/25/20 [History] Varenicline Tartrate [Chantix] 1 each PO ASDIRECTED 04/25/20 [History] Insulin Aspart [NovoLOG] 2 unit SUBCUT TIDPC #2 pen 04/26/20 [Rx] Insulin Degludec [Tresiba] 6 unit SQ DAILY #2 vial 04/26/20 [Rx] Insulin Glarg,Human.Rec.Analog [Lantus] 10 unit SUBCUT DAILY #15 ml 04/26/20 [Rx ] Pantoprazole [ProTONIX] 40 mg PO BID #60 tab.cr 04/26/20 [Rx] Patient's Own Medication [Ptom] 0 each TOP TID each 04/26/20 [Rx] cephALEXin [Keflex] 250 mg PO QID #12 cap 04/26/20 [Rx] Past Medical History HEENT History: Reports: Other (See Below) Other HEENT History: dysphagia Cardiovascular History: Reports: Hypertension Respiratory History: Reports: PE Gastrointestinal History: Reports: Chronic Diarrhea, GERD, Irritable Bowel Syndrome Other Gastrointestinal History: diarrhea, nausea, LLQ pain 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 History: Reports: Acute Renal Failure NUTRITION ASSISTANT History: Reports: Endometriosis, Other NUTRITION ASSISTANT History: amenorrhea Musculoskeletal History: Reports: Arthritis, Back Pain, Chronic Other Musculoskeletal History: chronic pain Neurological History: Reports: Headaches, Chronic, Migraines, Seizure Other Neuro History: Diabetic seizure Psychiatric History: Reports: Anxiety, Depression Other Psychiatric History: drug use history Endocrine/Metabolic History: Reports: Diabetes, Type I, Hypokalemia Other Endocrine/Metabolic History: hypokalemia Hematologic History: Reports: Blood Transfusion(s) Other Hematologic History: blood clotting disorder, DVT Other Immunologic History: 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 HIV from IV drug use, MRSA Dermatologic History: Reports: Eczema, Psoriasis - Infectious Disease History Infectious Disease History: Reports: MRSA Other Infectious Disease History: MRSA-2 yrs ago - Past Surgical History Cardiovascular Surgical History: Reports: None Respiratory Surgical History: Reports: None GI Surgical History: Reports: Cholecystectomy Other GI Surgeries/Procedures: ileostomy and closure, small bowel resection Social & Family History - Family History Family Medical History: Noncontributory - Tobacco Use Smoking Status *Q: Current Every Day Smoker Years of Tobacco use: 20 Packs/Tins Daily: 1 - Caffeine Use Caffeine Use: Reports: None Other Caffeine Use: drinks mellow yellow daily about 3 cans Caffeine Use Comment: unable to assess and verify for now due to condition - Recreational Drug Use Recreational Drug Use: Yes Recreational Drug Type: Reports: Marijuana/Hashish - Living Situation & Occupation Living situation: Reports: Single, with Family Occupation: Unemployed ED ROS GENERAL - Review of Systems Review Of Systems: See Below Constitutional: Reports: No Symptoms HEENT: Reports: No Symptoms Respiratory: Reports: No Symptoms Cardiovascular: Reports: No Symptoms Endocrine: Reports: No Symptoms GI/Abdominal: Reports: Abdominal Pain, Nausea, Vomiting : Reports: No Symptoms Musculoskeletal: Reports: No Symptoms Skin: Reports: No Symptoms Neurological: Reports: No Symptoms ED EXAM GENERAL NO PERIP PULSE - Physical Exam Exam: See Below Exam Limited By: No Limitations General Appearance: Alert, No Apparent Distress Eye Exam: Bilateral Eye: Normal Inspection Ears: Normal External Exam, Normal Canal, Hearing Grossly Normal, Normal TMs Nose: Normal Inspection, Normal Mucosa, No Blood Throat/Mouth: Normal Inspection, Normal Lips, Normal Gums, Normal Oropharynx, Normal Voice, No Airway Compromise. No: Normal Teeth (Her teeth are missing) Head: Atraumatic, Normocephalic Neck: Normal Inspection, Supple, Non-Tender, Full Range of Motion Respiratory/Chest: No Respiratory Distress, Lungs Clear, Normal Breath Sounds Cardiovascular: Regular Rate, Rhythm, No Edema, No Murmur Back Exam: Normal Inspection. No: CVA Tenderness (L), CVA Tenderness (R) Extremities: Normal Inspection, Normal Range of Motion, Non-Tender Neurological: Alert, Oriented Skin Exam: Warm, Dry, Intact Course - Vital Signs Last Recorded V/S: Last Vital Signs Temp 36.9 C 04/30/20 23:34 Pulse 116 H 04/30/20 23:34 Resp 16 04/30/20 23:34 BP 119/66 04/30/20 23:34 Pulse Ox 100 04/30/20 23:34 - Orders/Labs/Meds Orders: Active Orders 24 hr Category Date Time Status GLUCOSE RANDOM [CHEM] Stat Lab 05/01/20 01:21 Ordered Insulin Regular, Human [HumuLIN R] 100 unit Med 05/01/20 01:30 Active Sodium Chloride 0.9% [Normal Saline] 99 ml IV TITRATE Medication Orders Enoxaparin Sodium (Lovenox) 40 mg SUBCUT DAILY [facility] Insulin Human Regular 100 unit (/ Sodium Chloride) 100 mls @ 4.76 mls/hr IV TITRATE TONIO; Protocol Last Admin: 05/01/20 01:53 Dose: 0.1 units/kg/hr, 4.76 mls/hr Sodium Chloride (Normal Saline) 1,000 mls @ 999 mls/hr IV ONETIME ONE Stop: 05/01/20 02:41 Last Admin: 05/01/20 01:53 Dose: 999 mls/hr Dextrose/Water (Dextrose 10% In Water) 1,000 mls @ 40 mls/hr IV ASDIRECTED TONIO Stop: 05/02/20 03:16 Lactated Ringer's (Ringers, Lactated) 1,000 mls @ 150 mls/hr IV ASDIRECTED [facility] Lactated Ringer's (Ringers, Lactated) 1,000 mls @ 999 mls/hr IV ASDIRECTED TONIO Stop: 05/02/20 03:16 Ondansetron HCl (Zofran) 4 mg IV Q6H PRN PRN Reason: Nausea/Vomiting Labs: Laboratory Tests 05/01/20 05/01/20 05/01/20 Range/Units 00:15 00:26 00:26 WBC (3.98-10.04) K/mm3 RBC (3.98-5.22) M/mm3 Hgb (11.2-15.7) gm/dl Hct (34.1-44.9) % MCV (79.4-94.8) fl MCH (25.6-32.2) pg MCHC (32.2-35.5) g/dl RDW Std Deviation (36.4-46.3) fL Plt Count (182-369) K/mm3 MPV (9.4-12.3) fl Neut % (Auto) (34.0-71.1) % Lymph % (Auto) (19.3-51.7) % Morrow % (Auto) (4.7-12.5) % Eos % (Auto) (0.7-5.8) Baso % (Auto) (0.1-1.2) % Neut # (Auto) (1.56-6.13) K/mm3 Lymph # (Auto) (1.18-3.74) K/mm3 Morrow # (Auto) (0.24-0.36) K/mm3 Eos # (Auto) (0.04-0.36) K/mm3 Baso # (Auto) (0.01-0.08) K/mm3 Manual Slide Review Puncture Site Rt radial ABG pH 7.37 (7.35-7.45) ABG pCO2 24.1 L (35.0-45.0) mmHg ABG pO2 105.0 H (80.0-100.0) mmHg ABG HCO3 13.5 L (22.0-26.0) meq/L ABG O2 Saturation 98.0 H (96.0-97.0) % ABG Base Excess -10.2 L (-2-2.0) Darrell Test Positive A-a Gradient 15 mmHg O2 Delivery Device Room air FiO2 21.00 (21.00-100.00) % Sodium 133 L D (136-145) mEq/L Potassium 4.6 (3.5-5.1) mEq/L Chloride 92 L D (98-107) mEq/L Carbon Dioxide 16 L D (21-32) mEq/L Anion Gap 29.6 H (5-15) BUN 15 (7-18) mg/dL Creatinine 1.4 H (0.55-1.02) mg/dL Est Cr Clr Drug Dosing 42.17 mL/min Estimated GFR (MDRD) 43 (>60) mL/min BUN/Creatinine Ratio 10.7 L (14-18) Glucose 646 H* (74-106) mg/dL Lactic Acid 7.4 H* (0.4-2.0) mmol/L Calcium 9.0 (8.5-10.1) mg/dL Total Bilirubin 0.6 (0.2-1.0) mg/dL AST 23 (15-37) U/L ALT 42 (14-59) U/L Alkaline Phosphatase 78 (46-116) U/L Total Protein 5.4 L (6.4-8.2) g/dl Albumin 2.8 L (3.4-5.0) g/dl Globulin 2.6 gm/dL Albumin/Globulin Ratio 1.1 (1-2) Lipase 14 L (73-393) U/L Urine Color (Yellow) Urine Appearance (Clear) Urine pH (5.0-8.0) Ur Specific [place] (1.005-1.030) Urine Protein (Negative) Urine Glucose (UA) (Negative) Urine Ketones (Negative) Urine Occult Blood (Negative) Urine Nitrite (Negative) Urine Bilirubin (Negative) Urine Urobilinogen (0.2-1.0) Ur Leukocyte Esterase (Negative) Urine HCG, Qual (NEGATIVE) Ketones (0.0-0.3) mM 05/01/20 05/01/20 05/01/20 Range/Units 00:26 00:26 00:26 WBC 16.08 H (3.98-10.04) K/mm3 RBC 3.45 L (3.98-5.22) M/mm3 Hgb 10.3 L D (11.2-15.7) gm/dl Hct 32.3 L (34.1-44.9) % MCV 93.6 (79.4-94.8) fl MCH 29.9 (25.6-32.2) pg MCHC 31.9 L (32.2-35.5) g/dl RDW Std Deviation 43.8 (36.4-46.3) fL Plt Count 600 H D (182-369) K/mm3 MPV 9.8 (9.4-12.3) fl Neut % (Auto) 79.8 H (34.0-71.1) % Lymph % (Auto) 8.5 L (19.3-51.7) % Morrow % (Auto) 9.5 (4.7-12.5) % Eos % (Auto) 0 L (0.7-5.8) Baso % (Auto) 0.1 (0.1-1.2) % Neut # (Auto) 12.84 H (1.56-6.13) K/mm3 Lymph # (Auto) 1.37 (1.18-3.74) K/mm3 Morrow # (Auto) 1.52 H (0.24-0.36) K/mm3 Eos # (Auto) 0.00 L (0.04-0.36) K/mm3 Baso # (Auto) 0.02 (0.01-0.08) K/mm3 Manual Slide Review Abnormal smear Puncture Site ABG pH (7.35-7.45) ABG pCO2 (35.0-45.0) mmHg ABG pO2 (80.0-100.0) mmHg ABG HCO3 (22.0-26.0) meq/L ABG O2 Saturation (96.0-97.0) % ABG Base Excess (-2-2.0) Darrell Test A-a Gradient mmHg O2 Delivery Device FiO2 (21.00-100.00) % Sodium (136-145) mEq/L Potassium (3.5-5.1) mEq/L Chloride (98-107) mEq/L Carbon Dioxide (21-32) mEq/L Anion Gap (5-15) BUN (7-18) mg/dL Creatinine (0.55-1.02) mg/dL Est Cr Clr Drug Dosing mL/min Estimated GFR (MDRD) (>60) mL/min BUN/Creatinine Ratio (14-18) Glucose (74-106) mg/dL Lactic Acid (0.4-2.0) mmol/L Calcium (8.5-10.1) mg/dL Total Bilirubin (0.2-1.0) mg/dL AST (15-37) U/L ALT (14-59) U/L Alkaline Phosphatase (46-116) U/L Total Protein (6.4-8.2) g/dl Albumin (3.4-5.0) g/dl Globulin gm/dL Albumin/Globulin Ratio (1-2) Lipase (73-393) U/L Urine Color Pale yellow L (Yellow) Urine Appearance Clear (Clear) Urine pH 6.0 (5.0-8.0) Ur Specific [place] 1.015 (1.005-1.030) Urine Protein Negative (Negative) Urine Glucose (UA) 2+ H (Negative) Urine Ketones 3+ H (Negative) Urine Occult Blood Negative (Negative) Urine Nitrite Negative (Negative) Urine Bilirubin Negative (Negative) Urine Urobilinogen 0.2 (0.2-1.0) Ur Leukocyte Esterase Negative (Negative) Urine HCG, Qual Negative (NEGATIVE) Ketones (0.0-0.3) mM 05/01/20 Range/Units 00:26 WBC (3.98-10.04) K/mm3 RBC (3.98-5.22) M/mm3 Hgb (11.2-15.7) gm/dl Hct (34.1-44.9) % MCV (79.4-94.8) fl MCH (25.6-32.2) pg MCHC (32.2-35.5) g/dl RDW Std Deviation (36.4-46.3) fL Plt Count (182-369) K/mm3 MPV (9.4-12.3) fl Neut % (Auto) (34.0-71.1) % Lymph % (Auto) (19.3-51.7) % Morrow % (Auto) (4.7-12.5) % Eos % (Auto) (0.7-5.8) Baso % (Auto) (0.1-1.2) % Neut # (Auto) (1.56-6.13) K/mm3 Lymph # (Auto) (1.18-3.74) K/mm3 Morrow # (Auto) (0.24-0.36) K/mm3 Eos # (Auto) (0.04-0.36) K/mm3 Baso # (Auto) (0.01-0.08) K/mm3 Manual Slide Review Puncture Site ABG pH (7.35-7.45) ABG pCO2 (35.0-45.0) mmHg ABG pO2 (80.0-100.0) mmHg ABG HCO3 (22.0-26.0) meq/L ABG O2 Saturation (96.0-97.0) % ABG Base Excess (-2-2.0) Darrell Test A-a Gradient mmHg O2 Delivery Device FiO2 (21.00-100.00) % Sodium (136-145) mEq/L Potassium (3.5-5.1) mEq/L Chloride (98-107) mEq/L Carbon Dioxide (21-32) mEq/L Anion Gap (5-15) BUN (7-18) mg/dL Creatinine (0.55-1.02) mg/dL Est Cr Clr Drug Dosing mL/min Estimated GFR (MDRD) (>60) mL/min BUN/Creatinine Ratio (14-18) Glucose (74-106) mg/dL Lactic Acid (0.4-2.0) mmol/L Calcium (8.5-10.1) mg/dL Total Bilirubin (0.2-1.0) mg/dL AST (15-37) U/L ALT (14-59) U/L Alkaline Phosphatase (46-116) U/L Total Protein (6.4-8.2) g/dl Albumin (3.4-5.0) g/dl Globulin gm/dL Albumin/Globulin Ratio (1-2) Lipase (73-393) U/L Urine Color (Yellow) Urine Appearance (Clear) Urine pH (5.0-8.0) Ur Specific [place] (1.005-1.030) Urine Protein (Negative) Urine Glucose (UA) (Negative) Urine Ketones (Negative) Urine Occult Blood (Negative) Urine Nitrite (Negative) Urine Bilirubin (Negative) Urine Urobilinogen (0.2-1.0) Ur Leukocyte Esterase (Negative) Urine HCG, Qual (NEGATIVE) Ketones 12.47 (0.0-0.3) mM Meds: Medications Generic Name Dose Route Start Last Admin Trade Name Freq PRN Reason Stop Dose Admin Enoxaparin Sodium 40 mg 05/01/20 09:00 Lovenox SUBCUT DAILY [facility] Insulin Human Regular 100 unit 100 mls @ 4.76 mls/hr 05/01/20 01:30 05/01/20 01:53 / Sodium Chloride IV 0.1 units/kg/hr TITRATE TONIO 4.76 mls/hr Administration Protocol 0.1 UNITS/KG/HR Sodium Chloride 1,000 mls @ 999 mls/hr 05/01/20 01:41 05/01/20 01:53 Normal Saline IV 05/01/20 02:41 999 mls/hr ONETIME ONE Administration Dextrose/Water 1,000 mls @ 40 mls/hr 05/01/20 02:15 Dextrose 10% In Water IV 05/02/20 03:16 ASDIRECTED [facility]ON[facility] Lactated Ringer's 1,000 mls @ 150 mls/hr 05/01/20 02:15 Ringers, Lactated IV ASDIRECTED [facility] Lactated Ringer's 1,000 mls @ 999 mls/hr 05/01/20 02:15 Ringers, Lactated IV 05/02/20 03:16 ASDIRECTED [facility] Ondansetron HCl 4 mg 05/01/20 02:11 Zofran IV Q6H PRN Nausea/Vomiting Discontinued Medications Generic Name Dose Route Start Last Admin Trade Name Freq PRN Reason Stop Dose Admin Fentanyl 50 mcg 05/01/20 00:58 05/01/20 01:03 Sublimaze IVPUSH 05/01/20 00:59 50 mcg ONETIME ONE Administration Fentanyl 50 mcg 05/01/20 01:58 05/01/20 02:03 Sublimaze IVPUSH 05/01/20 01:59 50 mcg ONETIME ONE Administration Sodium Chloride 1,000 mls @ 999 mls/hr 04/30/20 23:48 05/01/20 00:27 Normal Saline IV 05/01/20 00:48 999 mls/hr ONETIME ONE Administration Sodium Chloride Confirm 05/01/20 01:26 05/01/20 01:41 Normal Saline Administered 05/01/20 01:27 Not Given Dose 100 mls @ as directed .ROUTE .STK-MED ONE Sodium Chloride Confirm 05/01/20 01:35 05/01/20 01:41 Normal Saline Administered 05/01/20 01:36 Not Given Dose 1,000 mls @ as directed .ROUTE .STK-MED ONE Insulin Human Regular 4 unit 04/30/20 23:48 05/01/20 00:28 Humulin R IV 04/30/20 23:49 4 unit ONETIME ONE Administration Ondansetron HCl 4 mg 04/30/20 23:55 05/01/20 00:27 Zofran IVPUSH 04/30/20 23:56 4 mg ONETIME ONE Administration - Re-Assessments/Exams Free Text/Narrative Re-Assessment/Exam: 05/01/20 02:32 Dr. Blue was consulted and did come in to admit the patient Departure - Departure Time of Disposition: 01:10 Disposition: Admitted As Inpatient 65 Clinical Impression: DKA, type 1 - Discharge Information Sepsis Event Note - Evaluation Sepsis Screening Result: No Definite Risk - Focused Exam Vital Signs: Vital Signs Temp Pulse Resp BP Pulse Ox 04/30/20 23:34 36.9 C 116 H 16 119/66 100 Date Exam was Performed: 05/01/20 Time Exam was Performed: 02:32 - My Orders Last 24 Hours: My Active Orders 05/01/20 01:21 GLUCOSE RANDOM [CHEM] Stat 05/01/20 01:30 Insulin Regular, Human [HumuLIN R] 100 unit Sodium Chloride 0.9% [Normal Saline] 99 ml IV TITRATE - Assessment/Plan Last 24 Hours: My Active Orders 05/01/20 01:21 GLUCOSE RANDOM [CHEM] Stat 05/01/20 01:30 Insulin Regular, Human [HumuLIN R] 100 unit Sodium Chloride 0.9% [Normal Saline] 99 ml IV TITRATE
[2020-04-30] MEDS ORDERED: Sodium Chloride 0.9% 1,000 ML IV ONE (23:48)
[2020-04-30] MEDS ORDERED: Insulin Regular, Human 100 Units/ML 3 ML Vial IV ONE (23:48)
[2020-04-30] MEDS ORDERED: Ondansetron 4 MG/2 ML SDV IVPUSH ONE (23:55)
[2020-05-01] MEDS ORDERED: fentaNYL 100 MCG/2 ML SDV IVPUSH ONE ×2 (00:58→01:58)
[2020-05-01] MEDS ORDERED: Sodium Chloride 0.9% 100 ML ONE (01:26)
[2020-05-01] MEDS ORDERED: Sodium Chloride 0.9% 1,000 ML ONE (01:35)
[2020-05-01] MEDS ORDERED: Sodium Chloride 0.9% 1,000 ML IV ONE (01:41)
--- NOTE | 2020-05-01 02:11 | PCM.HP.2 ---
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 Patient was discharged 4 days ago after an admission for diabetic ketoacidosis that required her to be placed on insulin drip admitted to the ICU and discharged home with adjustment of her medications. Patient notes that right after discharge when she arrived home her glucose levels have not been controlled, with levels in the upper 200s and 300s. Today her Accu-Chek read high for which she decided to come to the emergency department. Abdomen Pain Score (Numeric/FACES): 8 - Related Data Allergies/Adverse Reactions: Allergies Allergy/AdvReac Type Severity Reaction Status Date / Time latex Allergy Mild Hives Verified 05/01/20 02:34 tramadol Allergy Mild Hives Verified 05/01/20 02:34 purex laundry soap Allergy Mild Hives Uncoded 04/30/20 23:37 Home Medications: Home Meds Buprenorphine HCl/Naloxone HCl [Buprenorp-Nalox 8-2 mg Sl Film] 20 mg SL DAILY 02/29/20 [History] Albuterol [Proair HFA] 2 puff INH Q6HR PRN 04/25/20 [History] Fluticasone Propionate [Flovent HFA] 44 mcg INH Q12HR 04/25/20 [History] Promethazine [Phenergan] 25 mg PO Q4H PRN 04/25/20 [History] Varenicline Tartrate [Chantix] 1 each PO ASDIRECTED 04/25/20 [History] Insulin Aspart [NovoLOG] 2 unit SUBCUT TIDPC #2 pen 04/26/20 [Rx] Insulin Degludec [Tresiba] 6 unit SQ DAILY #2 vial 04/26/20 [Rx] Insulin Glarg,Human.Rec.Analog [Lantus] 10 unit SUBCUT DAILY #15 ml 04/26/20 [Rx ] Pantoprazole [ProTONIX] 40 mg PO BID #60 tab.cr 04/26/20 [Rx] Patient's Own Medication [Ptom] 0 each TOP TID each 04/26/20 [Rx] cephALEXin [Keflex] 250 mg PO QID #12 cap 04/26/20 [Rx] Past Medical History HEENT History: Reports: Other (See Below) Other HEENT History: dysphagia Cardiovascular History: Reports: Hypertension Respiratory History: Reports: PE Gastrointestinal History: Reports: Chronic Diarrhea, GERD, Irritable Bowel Syndrome Other Gastrointestinal History: diarrhea, nausea, LLQ pain 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 History: Reports: Acute Renal Failure 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: Reports: Endometriosis, Other OB/BYN History: amenorrhea Musculoskeletal History: Reports: Arthritis, Back Pain, Chronic Other Musculoskeletal History: chronic pain Neurological History: Reports: Headaches, Chronic, Migraines, Seizure Other Neuro History: Diabetic seizure Psychiatric History: Reports: Anxiety, Depression Other Psychiatric History: drug use history Endocrine/Metabolic History: Reports: Diabetes, Type I, Hypokalemia Other Endocrine/Metabolic History: hypokalemia Hematologic History: Reports: Blood Transfusion(s) Other Hematologic History: blood clotting disorder, DVT Other Immunologic History: risk for HIV from IV drug use, MRSA Dermatologic History: Reports: Eczema, Psoriasis - Infectious Disease History Infectious Disease History: Reports: MRSA Other Infectious Disease History: MRSA-2 yrs ago - Past Surgical History Cardiovascular Surgical History: Reports: None Respiratory Surgical History: Reports: None GI Surgical History: Reports: Cholecystectomy Other GI Surgeries/Procedures: ileostomy and closure, small bowel resection Social & Family History - Family History Family Medical History: Noncontributory - Tobacco Use Smoking Status *Q: Current Every Day Smoker Years of Tobacco use: 20 Packs/Tins Daily: 1 - Caffeine Use Caffeine Use: Reports: None Other Caffeine Use: drinks mellow yellow daily about 3 cans Caffeine Use Comment: unable to assess and verify for now due to condition - Recreational Drug Use Recreational Drug Use: Yes Recreational Drug Type: Reports: Marijuana/Hashish - Living Situation & Occupation Living situation: Reports: Single, with Family Occupation: Unemployed H&P Review of Systems - Review of Systems: Review Of Systems: See Below General: Reports: Malaise, Weakness, Fatigue, Decreased Appetite, Weight Loss. Denies: Fever, Chills, Night Sweats, Diaphoresis, Weight Gain HEENT: Denies: Dysphasia, Ear Pain, Eye Pain, Headaches, Hearing Changes, Post Nasal Drip, Sinus Congestion, Sore Throat, Vertigo Pulmonary: Denies: Shortness of Breath, Wheezing, Pleuritic Chest Pain, Cough, Sputum, Hemoptysis Cardiovascular: Denies: Chest Pain, Palpitations, Dyspnea on Exertion, Orthopnea , PND, Edema, Lightheadedness Gastrointestinal: Reports: Abdominal Pain, Anorexia, Decreased Appetite, Nausea , Vomiting. Denies: Black Stool, Bloody Stool, Constipation, Diarrhea, Difficulty Swallowing, Distension 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: Denies: Dysuria, Frequency, Burning, Pain, Urgency, Incontinence Musculoskeletal: Denies: Joint Pain, Joint Swelling, Muscle Pain, Muscle Stiffness Skin: Reports: Pallor. Denies: Cyanosis, Jaundice, Mottled Psychiatric: Reports: Depression, Anxiety Exam - Exam Exam: See Below - Vital Signs Vital Signs: Last Vital Signs Temp 98.5 F 04/30/20 23:34 Pulse 116 H 04/30/20 23:34 Resp 16 04/30/20 23:34 BP 119/66 04/30/20 23:34 Pulse Ox 100 04/30/20 23:34 Weight: 47.627 kg - Exam General: Alert, Oriented, Cooperative, Mild Distress HEENT: Conjunctiva Clear, EACs Clear, EOMI. No: Mucosa Moist & [place] (Oral mucosa is dry) Neck: Supple, Trachea Midline, +2 Carotid Pulse wo Bruit, Full Range of Motion. No: Lymphadenopathy Lungs: Clear to Auscultation, Normal Respiratory Effort. No: Crackles, Rales, Rhonchi, Rub, Stridor, Wheezing Cardiovascular: Regular Rate, Regular Rhythm. No: Systolic Murmur, Diastolic Murmur, Rubs, Gallop/S3, Gallop/S4 GI/Abdominal Exam: Normal Bowel Sounds, Soft, No Organomegaly, No Distention, No Abnormal Bruit, No Mass, Tender (Mild tenderness to palpation throughout). No: Distended, Guarding, Rigid Back Exam: No: Normal Inspection (Intercostal muscle wasting) Extremities: Normal Inspection Peripheral Pulses: 3+: Radial (L), Radial (R) Skin: Dry, Cool Neuro Extensive - Mental Status: Oriented x3 Psychiatric: Anxious, Agitated - Patient Data Result Diagrams: 05/01/20 06:00 05/01/20 04:57 Sepsis Event Note - Evaluation Sepsis Screening Result: No Definite Risk - Focused Exam Vital Signs: Vital Signs Temp Pulse Resp BP Pulse Ox 04/30/20 23:34 98.5 F 116 H 16 119/66 100 Date Exam was Performed: 05/01/20 Time Exam was Performed: 07:48 - Problem List (1) Sepsis due to urinary tract infection SNOMED Code(s): 070667642 ICD Code: A41.9 - SEPSIS, UNSPECIFIED ORGANISM; N39.0 - URINARY TRACT INFECTION, SITE NOT SPECIFIED Status: Acute Current Visit: Yes (2) Diabetic ketoacidosis SNOMED Code(s): 694249756, 033687058 ICD Code: E11.10 - TYPE 2 DIABETES MELLITUS WITH KETOACIDOSIS WITHOUT COMA Status: Acute Current Visit: No Qualifiers: Diabetes mellitus type: type 1 Diabetes mellitus complication detail: without coma Qualified Code(s): E10.10 - Type 1 diabetes mellitus with ketoacidosis without coma (3) UTI (urinary tract infection) SNOMED Code(s): 66757975 ICD Code: N39.0 - URINARY TRACT INFECTION, SITE NOT SPECIFIED Status: Acute Current Visit: No (4) High anion gap metabolic acidosis SNOMED Code(s): 16573859 ICD Code: E87.2 - ACIDOSIS Status: Acute Current Visit: Yes (5) Nausea and vomiting SNOMED Code(s): 50608052 ICD Code: R11.2 - NAUSEA WITH VOMITING, UNSPECIFIED Status: Acute Current Visit: No Qualifiers: Vomiting type: unspecified Vomiting Intractability: non-intractable Qualified Code(s): R11.2 - Nausea with vomiting, unspecified (6) Hyponatremia SNOMED Code(s): 44839177 ICD Code: E87.1 - HYPO-OSMOLALITY AND HYPONATREMIA Status: Acute Current Visit: Yes (7) Type I diabetes mellitus SNOMED Code(s): 12997330 ICD Code: E10.9 - TYPE 1 DIABETES MELLITUS WITHOUT COMPLICATIONS Status: Chronic Priority: High Current Visit: No Qualifiers: Diabetes mellitus complication status: with neurologic complications Diabetes mellitus complication detail: with unspecified neuropathy Qualified Code(s): E10.40 - Type 1 diabetes mellitus with diabetic neuropathy, unspecified (8) Chronic respiratory alkalosis SNOMED Code(s): 63933536 ICD Code: E87.3 - ALKALOSIS Status: Acute Current Visit: Yes (9) Acute kidney injury SNOMED Code(s): 88553919, 23169573 ICD Code: N17.9 - ACUTE KIDNEY FAILURE, UNSPECIFIED Status: Acute Current Visit: Yes (10) Opioid dependence in controlled environment SNOMED Code(s): 79146542 ICD Code: F11.20 - OPIOID DEPENDENCE, UNCOMPLICATED Status: Acute Current Visit: No (11) Normocytic normochromic anemia SNOMED Code(s): 93503862 ICD Code: D64.9 - ANEMIA, UNSPECIFIED Status: Acute Current Visit: Yes (12) Hypoalbuminemia SNOMED Code(s): 175922768 ICD Code: E88.09 - OTH DISORDERS OF PLASMA-PROTEIN METABOLISM, NEC Status: Acute Current Visit: Yes (13) Cachectic SNOMED Code(s): 285063267 ICD Code: R64 - CACHEXIA Status: Acute Current Visit: Yes (14) Thrombocytosis SNOMED Code(s): 2368903 ICD Code: D47.3 - ESSENTIAL (HEMORRHAGIC) THROMBOCYTHEMIA Status: Acute Current Visit: Yes (15) Leukocytosis SNOMED Code(s): 375139496, 096595900 ICD Code: D72.829 - ELEVATED WHITE BLOOD CELL COUNT, UNSPECIFIED Status: Acute Current Visit: Yes (16) Medical non-compliance SNOMED Code(s): 823107264 ICD Code: Z91.19 - PATIENT'S NONCOMPLIANCE W OTH MEDICAL TREATMENT AND REGIMEN Status: Acute Current Visit: Yes Problem List Initiated/Reviewed/Updated: Yes Assessment/Plan Comment:: ASSESSMENT - Admission for DKA, discharged with stable glycemi left ear 9 - When she arrived at home glucose started trending up a couple of hours later - Reports numbe in the upper 200s and 300s - Associated intractable nausea and vomiting - Accu-Chek today showed level greater than 400 - Labs - Glucose 646 - WBC 16.08, hemoglobin 10.3, platelets 600 - Sodium 133, corrects with glucose adjustment, chloride of 92, potassium 4.6 , CO2 16 - Anion gap 30 with ketones of 12.47 - Lactate 7.4, multifactorial - GFR for 43 - ABGs 7.37/20 4.1 4/105/35/98 - Albumin 2.8 - Qualifies for severe sepsis with tachycardia and elevated white blood cell count as well as elevated lactic acid, her fluid bolus is 1700 - Patient has drug-seeking behavior for which a urine drug screen will be performed - Poor peripheral intravenous access for which central line was placed Sepsis due to urinary tract infection Diabetic ketoacidosis High anion gap metabolic acidosis Nausea and vomiting Hyponatremia Type I diabetes mellitus Start Zosyn Trend lactic acid IV fluid bolus of 2 L, maintenance as per DKA protocol Labs every 4 hours, ketones every 8 hours 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 Discharge is highly likely in the next 3 days once glucose is controlled Current prognosis is guarded
[2020-05-01] MEDS ORDERED: Morphine 2 MG/ML Syringe IVPUSH ONE (03:12)
[2020-05-01] MEDS: Ondansetron 4 MG/2 ML SDV IV PRN ×3 (03:13→20:15)
[2020-05-01] MEDS: Lactated Ringers 1,000 ML IV SCH ×4 (03:14→09:40)
[2020-05-01] MEDS ORDERED: PIPERACILLIN IV ONE (03:15)
[2020-05-01] MEDS ORDERED: SODIUM CHLORIDE 0.9% IV ONE (03:15)
[2020-05-01] MEDS ORDERED: TAZOBACTAM IV ONE (03:15)
--- NOTE | 2020-05-01 03:24 | PCM.PRNOTE ---
- Free Text/Narrative Note: Central Venous Catheter Placement Date: 05/01/20 Time: 2:45 Indication: Intravenous access Attending: Natasha Blue MD A time-out was completed verifying correct patient, procedure, site, positioning , and special equipment if applicable. The patient was placed in a dependent position appropriate for central line placement based on the vein to becannulated. The patients right neck was prepped and draped in sterile fashion. 1%Lidocainewas used to anesthetize the surrounding skin area. A triple lumen 7-FrenchCordiscatheter was introduced into the the right internal jugular using the Seldingertechnique and under ultrasound guidance. The catheter was threaded smoothly over the guide wire and appropriate blood return was obtained. Each lumen of the catheter was evacuated of air and flushed with sterile saline. The catheter was then sutured in place to the skin and a sterile dressing applied. Perfusion to the extremity distal to the point of catheter insertion was checked and found to be adequate. Estimated Blood Loss: 4 mL The patient tolerated the procedure well and there were no complications.
[2020-05-01] MEDS ORDERED: Piperacillin/Tazobactam 4.5 GM in Sodium Chloride 0.9% 100 ML IV ONE (03:30)
[2020-05-01] MEDS ORDERED: Insulin Regular, Human 100 Units/ML 3 ML Vial IV ONE (03:56)
[2020-05-01] MEDS: Magnesium Sulfate/Water 4 GM in Premix Bag 1 BAG IV ONE ×2 (04:39→04:59)
[2020-05-01] MEDS ORDERED: Dextrose 10% in Water 1,000 ML IV SCH (07:00)
--- NOTE | 2020-05-01 07:10 | CR ---
Chest: Portable view of the chest was obtained. Comparison: Prior chest x-ray of 04/22/20. Stable position of right-sided jugular line. Lungs are clear with no acute parenchymal change. Heart size and mediastinum are within normal limits. Bony structures are unremarkable. Impression: 1. Stable right-sided jugular line. 2. Nothing acute is otherwise seen on portable chest x-ray. Diagnostic code #2 This report was dictated in MDT I agree with preliminary report from ama, finalized on 05/01/20, 4:18 AM Central Daylight Time
--- NOTE | 2020-05-01 07:46 | PCM.SN.2 ---
- Free Text/Narrative Note: SEPSIS RE-EVALUATION AFTER IVF BOLUS BP prior to IVF bolus 119/56 3 hours later: BP #1 133/76 (2:45) BP #2 127/73 (3:00) PHYSICAL EXAM: Sepsis focused exam performed General: 34 old female who appears in no acute distress, laying in bed HEENT: Normocephalic, atraumatic. White sclera. PEERLA, EOMI. no periorbital edema. Neck supple. Respiratory: Symmetrical chest expansion. No lesions. Pathologic sounds are not heard. Symmetrical air entry at BL bases. Cardiovascular: rhythmic and synchronic with pulse. No rubs, murmurs or gallops. Abdomen: Soft, mildly tender throughout, nondistended. BS are heard in all quadrants. Musculoskeletal: Radial pulse 3+. Dorsalis pedis pulse 3+ in BL LE. No lower extremity edema. Skin: capillary refill less than 3 seconds Neurologic: alert and following simple commands
[2020-05-01] MEDS: Nicotine 21 MG/24 Hr Patch TRDERM SCH (08:07)
[2020-05-01] MEDS: Enoxaparin 40 MG/0.4 ML Syringe SUBCUT SCH (08:07)
[2020-05-01] MEDS ORDERED: PIPERACILLIN IV SCH (09:30)
[2020-05-01] MEDS ORDERED: SODIUM CHLORIDE 0.9% IV SCH (09:30)
[2020-05-01] MEDS ORDERED: TAZOBACTAM IV SCH (09:30)
[2020-05-01] MEDS: Potassium Chloride 10 MEQ in Premix Bag 1 BAG IV SCH ×2 (10:50→11:53)
[2020-05-01] MEDS ORDERED: Magnesium Sulfate/Water 4 GM in Premix Bag 1 BAG IV ONE (11:00)
[2020-05-01] MEDS ORDERED: Piperacillin/Tazobactam 4.5 GM in Sodium Chloride 0.9% 100 ML IV SCH (12:00)
[2020-05-01] MEDS ORDERED: Insulin Glarg,Human.Rec.Analog 100 Unit/ML SUBCUT SCH ×2 (12:45→13:00)
[2020-05-01] MEDS ORDERED: Potassium Phosphates 30 MMOLE in Sodium Chloride 0.9% 500 ML IV ONE (13:00)
--- NOTE | 2020-05-01 13:59 | PCM.PN ---
- General Info Date of Service: 05/01/20 Admission Dx/Problem (Free Text): Admission Diagnosis/Problem Admission Diagnosis/Problem Diabetic ketoacidosis Functional Status: Reports: Urinating. Denies: Tolerating Diet (minimal intake ), Ambulating, New Symptoms - Review of Systems General: Reports: Weakness, Fatigue, Malaise. Denies: Fever, Chills HEENT: Reports: No Symptoms. Denies: Headaches, Sore Throat Pulmonary: Reports: No Symptoms. Denies: Shortness of Breath, Cough, Sputum, Wheezing Cardiovascular: Reports: No Symptoms. Denies: Chest Pain, Palpitations, Edema Gastrointestinal: Reports: Abdominal Pain (generalized ), Decreased Appetite. Denies: Constipation, Diarrhea, Nausea, Vomiting 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: Reports: No Symptoms. Denies: Pain Musculoskeletal: Reports: No Symptoms Skin: Reports: No Symptoms. Denies: Cyanosis Neurological: Reports: No Symptoms. Denies: Confusion Psychiatric: Reports: No Symptoms - Patient Data Vitals - Most Recent: Last Vital Signs Temp 97.8 F 05/01/20 08:00 Pulse 114 H 05/01/20 08:01 Resp 0 L 05/01/20 08:01 BP 143/109 H 05/01/20 08:00 Pulse Ox 100 05/01/20 08:01 Weight - Most Recent: 109 lb I&O - Last 24 Hours: Intake & Output 04/30/20 05/01/20 05/01/20 22:59 06:59 14:59 Intake Total 1613 20 Output Total 410 200 Balance 1203 -180 Lab Results Last 24 Hours: Laboratory Results - last 24 hr 05/01/20 05/01/20 05/01/20 Range/Units 00:15 00:26 00:26 WBC (3.98-10.04) K/mm3 RBC (3.98-5.22) M/mm3 Hgb (11.2-15.7) gm/dl Hct (34.1-44.9) % MCV (79.4-94.8) fl MCH (25.6-32.2) pg MCHC (32.2-35.5) g/dl RDW Std Deviation (36.4-46.3) fL Plt Count (182-369) K/mm3 MPV (9.4-12.3) fl Neut % (Auto) (34.0-71.1) % Lymph % (Auto) (19.3-51.7) % [place] % (Auto) (4.7-12.5) % Eos % (Auto) (0.7-5.8) Baso % (Auto) (0.1-1.2) % Neut # (Auto) (1.56-6.13) K/mm3 Lymph # (Auto) (1.18-3.74) K/mm3 [place] # (Auto) (0.24-0.36) K/mm3 Eos # (Auto) (0.04-0.36) K/mm3 Baso # (Auto) (0.01-0.08) K/mm3 Manual Slide Review Puncture Site Rt radial ABG pH 7.37 (7.35-7.45) ABG pCO2 24.1 L (35.0-45.0) mmHg ABG pO2 105.0 H (80.0-100.0) mmHg ABG HCO3 13.5 L (22.0-26.0) meq/L ABG O2 Saturation 98.0 H (96.0-97.0) % ABG Base Excess -10.2 L (-2-2.0) Darrell Test Positive A-a Gradient 15 mmHg O2 Delivery Device Room air Oxygen Flow Rate FiO2 21.00 (21.00-100.00) % Sodium 133 L D (136-145) mEq/L Potassium 4.6 (3.5-5.1) mEq/L Chloride 92 L D (98-107) mEq/L Carbon Dioxide 16 L D (21-32) mEq/L Anion Gap 29.6 H (5-15) BUN 15 (7-18) mg/dL Creatinine 1.4 H (0.55-1.02) mg/dL Est Cr Clr Drug Dosing 42.17 mL/min Estimated GFR (MDRD) 43 (>60) mL/min BUN/Creatinine Ratio 10.7 L (14-18) Glucose 646 H* (74-106) mg/dL POC Glucose (70-105) mg/dL Lactic Acid 7.4 H* (0.4-2.0) mmol/L Calcium 9.0 (8.5-10.1) mg/dL Phosphorus (2.6-4.7) mg/dL Magnesium (1.8-2.4) mg/dl Total Bilirubin 0.6 (0.2-1.0) mg/dL AST 23 (15-37) U/L ALT 42 (14-59) U/L Alkaline Phosphatase 78 (46-116) U/L Total Protein 5.4 L (6.4-8.2) g/dl Albumin 2.8 L (3.4-5.0) g/dl Globulin 2.6 gm/dL Albumin/Globulin Ratio 1.1 (1-2) Triglycerides (<150) mg/dL Lipase 14 L (73-393) U/L Urine Color (Yellow) Urine Appearance (Clear) Urine pH (5.0-8.0) Ur Specific [place] (1.005-1.030) Urine Protein (Negative) Urine Glucose (UA) (Negative) Urine Ketones (Negative) Urine Occult Blood (Negative) Urine Nitrite (Negative) Urine Bilirubin (Negative) Urine Urobilinogen (0.2-1.0) Ur Leukocyte Esterase (Negative) Urine HCG, Qual (NEGATIVE) Urine Opiates Screen (CMATJG=636) Ur Buprenorphine Scrn (CUTOFF=10) Ur Oxycodone Screen (FGT2CB=582) Urine Methadone Screen (NRKDQO=470) Ur Propoxyphene Screen (YFOQVI=921) Ur Barbiturates Screen (JGGFPU=667) Ur Tricyclics Screen (WONJRZ=687) Ur Phencyclidine Scrn (CUTOFF=25) Ur Amphetamine Screen (AKKWKB=251) U Methamphetamines Scrn (VPIQWH=855) U Benzodiazepines Scrn (ETEBTZ=546) U Cocaine Metab Screen (TGPVOI=445) U Marijuana (THC) Screen (CUTOFF=50) Ethyl Alcohol (0.00) gm% Ketones (0.0-0.3) mM 05/01/20 05/01/20 05/01/20 Range/Units 00:26 00:26 00:26 WBC 16.08 H (3.98-10.04) K/mm3 RBC 3.45 L (3.98-5.22) M/mm3 Hgb 10.3 L D (11.2-15.7) gm/dl Hct 32.3 L (34.1-44.9) % MCV 93.6 (79.4-94.8) fl MCH 29.9 (25.6-32.2) pg MCHC 31.9 L (32.2-35.5) g/dl RDW Std Deviation 43.8 (36.4-46.3) fL Plt Count 600 H D (182-369) K/mm3 MPV 9.8 (9.4-12.3) fl Neut % (Auto) 79.8 H (34.0-71.1) % Lymph % (Auto) 8.5 L (19.3-51.7) % [place] % (Auto) 9.5 (4.7-12.5) % Eos % (Auto) 0 L (0.7-5.8) Baso % (Auto) 0.1 (0.1-1.2) % Neut # (Auto) 12.84 H (1.56-6.13) K/mm3 Lymph # (Auto) 1.37 (1.18-3.74) K/mm3 [place] # (Auto) 1.52 H (0.24-0.36) K/mm3 Eos # (Auto) 0.00 L (0.04-0.36) K/mm3 Baso # (Auto) 0.02 (0.01-0.08) K/mm3 Manual Slide Review Abnormal smear Puncture Site ABG pH (7.35-7.45) ABG pCO2 (35.0-45.0) mmHg ABG pO2 (80.0-100.0) mmHg ABG HCO3 (22.0-26.0) meq/L ABG O2 Saturation (96.0-97.0) % ABG Base Excess (-2-2.0) Darrell Test A-a Gradient mmHg O2 Delivery Device Oxygen Flow Rate FiO2 (21.00-100.00) % Sodium (136-145) mEq/L Potassium (3.5-5.1) mEq/L Chloride (98-107) mEq/L Carbon Dioxide (21-32) mEq/L Anion Gap (5-15) BUN (7-18) mg/dL Creatinine (0.55-1.02) mg/dL Est Cr Clr Drug Dosing mL/min Estimated GFR (MDRD) (>60) mL/min BUN/Creatinine Ratio (14-18) Glucose (74-106) mg/dL POC Glucose (70-105) mg/dL Lactic Acid (0.4-2.0) mmol/L Calcium (8.5-10.1) mg/dL Phosphorus (2.6-4.7) mg/dL Magnesium (1.8-2.4) mg/dl Total Bilirubin (0.2-1.0) mg/dL AST (15-37) U/L ALT (14-59) U/L Alkaline Phosphatase (46-116) U/L Total Protein (6.4-8.2) g/dl Albumin (3.4-5.0) g/dl Globulin gm/dL Albumin/Globulin Ratio (1-2) Triglycerides (<150) mg/dL Lipase (73-393) U/L Urine Color Pale yellow L (Yellow) Urine Appearance Clear (Clear) Urine pH 6.0 (5.0-8.0) Ur Specific [place] 1.015 (1.005-1.030) Urine Protein Negative (Negative) Urine Glucose (UA) 2+ H (Negative) Urine Ketones 3+ H (Negative) Urine Occult Blood Negative (Negative) Urine Nitrite Negative (Negative) Urine Bilirubin Negative (Negative) Urine Urobilinogen 0.2 (0.2-1.0) Ur Leukocyte Esterase Negative (Negative) Urine HCG, Qual Negative (NEGATIVE) Urine Opiates Screen (EEUPDS=384) Ur Buprenorphine Scrn (CUTOFF=10) Ur Oxycodone Screen (KKA9NN=936) Urine Methadone Screen (RLPCNM=393) Ur Propoxyphene Screen (ABBCGB=277) Ur Barbiturates Screen (OQJJXF=020) Ur Tricyclics Screen (ZCNOLO=315) Ur Phencyclidine Scrn (CUTOFF=25) Ur Amphetamine Screen (RJEPCL=389) U Methamphetamines Scrn (XYMVWM=850) U Benzodiazepines Scrn (TYVNTN=937) U Cocaine Metab Screen (LGDDVM=903) U Marijuana (THC) Screen (CUTOFF=50) Ethyl Alcohol (0.00) gm% Ketones (0.0-0.3) mM 05/01/20 05/01/20 05/01/20 Range/Units 00:26 00:26 03:05 WBC (3.98-10.04) K/mm3 RBC (3.98-5.22) M/mm3 Hgb (11.2-15.7) gm/dl Hct (34.1-44.9) % MCV (79.4-94.8) fl MCH (25.6-32.2) pg MCHC (32.2-35.5) g/dl RDW Std Deviation (36.4-46.3) fL Plt Count (182-369) K/mm3 MPV (9.4-12.3) fl Neut % (Auto) (34.0-71.1) % Lymph % (Auto) (19.3-51.7) % [place] % (Auto) (4.7-12.5) % Eos % (Auto) (0.7-5.8) Baso % (Auto) (0.1-1.2) % Neut # (Auto) (1.56-6.13) K/mm3 Lymph # (Auto) (1.18-3.74) K/mm3 [place] # (Auto) (0.24-0.36) K/mm3 Eos # (Auto) (0.04-0.36) K/mm3 Baso # (Auto) (0.01-0.08) K/mm3 Manual Slide Review Puncture Site ABG pH (7.35-7.45) ABG pCO2 (35.0-45.0) mmHg ABG pO2 (80.0-100.0) mmHg ABG HCO3 (22.0-26.0) meq/L ABG O2 Saturation (96.0-97.0) % ABG Base Excess (-2-2.0) Darrell Test A-a Gradient mmHg O2 Delivery Device Oxygen Flow Rate FiO2 (21.00-100.00) % Sodium (136-145) mEq/L Potassium (3.5-5.1) mEq/L Chloride (98-107) mEq/L Carbon Dioxide (21-32) mEq/L Anion Gap (5-15) BUN (7-18) mg/dL Creatinine (0.55-1.02) mg/dL Est Cr Clr Drug Dosing mL/min Estimated GFR (MDRD) (>60) mL/min BUN/Creatinine Ratio (14-18) Glucose (74-106) mg/dL POC Glucose (70-105) mg/dL Lactic Acid (0.4-2.0) mmol/L Calcium (8.5-10.1) mg/dL Phosphorus (2.6-4.7) mg/dL Magnesium (1.8-2.4) mg/dl Total Bilirubin (0.2-1.0) mg/dL AST (15-37) U/L ALT (14-59) U/L Alkaline Phosphatase (46-116) U/L Total Protein (6.4-8.2) g/dl Albumin (3.4-5.0) g/dl Globulin gm/dL Albumin/Globulin Ratio (1-2) Triglycerides 106 (<150) mg/dL Lipase (73-393) U/L Urine Color (Yellow) Urine Appearance (Clear) Urine pH (5.0-8.0) Ur Specific [place] (1.005-1.030) Urine Protein (Negative) Urine Glucose (UA) (Negative) Urine Ketones (Negative) Urine Occult Blood (Negative) Urine Nitrite (Negative) Urine Bilirubin (Negative) Urine Urobilinogen (0.2-1.0) Ur Leukocyte Esterase (Negative) Urine HCG, Qual (NEGATIVE) Urine Opiates Screen Negative (VJLEJW=093) Ur Buprenorphine Scrn Negative (CUTOFF=10) Ur Oxycodone Screen Negative (HWV9TN=819) Urine Methadone Screen Negative (QGRCJN=653) Ur Propoxyphene Screen Negative (NPAYAA=685) Ur Barbiturates Screen Negative (UTUAVK=014) Ur Tricyclics Screen Negative (FGJQQK=566) Ur Phencyclidine Scrn Negative (CUTOFF=25) Ur Amphetamine Screen Negative (QPSJQI=616) U Methamphetamines Scrn Negative (KCJJON=896) U Benzodiazepines Scrn Negative (TMOEFG=804) U Cocaine Metab Screen Negative (JOJQZC=956) U Marijuana (THC) Screen Negative (CUTOFF=50) Ethyl Alcohol (0.00) gm% Ketones 12.47 (0.0-0.3) mM 05/01/20 05/01/20 05/01/20 Range/Units 03:05 03:05 03:05 WBC (3.98-10.04) K/mm3 RBC (3.98-5.22) M/mm3 Hgb (11.2-15.7) gm/dl Hct (34.1-44.9) % MCV (79.4-94.8) fl MCH (25.6-32.2) pg MCHC (32.2-35.5) g/dl RDW Std Deviation (36.4-46.3) fL Plt Count (182-369) K/mm3 MPV (9.4-12.3) fl Neut % (Auto) (34.0-71.1) % Lymph % (Auto) (19.3-51.7) % [place] % (Auto) (4.7-12.5) % Eos % (Auto) (0.7-5.8) Baso % (Auto) (0.1-1.2) % Neut # (Auto) (1.56-6.13) K/mm3 Lymph # (Auto) (1.18-3.74) K/mm3 [place] # (Auto) (0.24-0.36) K/mm3 Eos # (Auto) (0.04-0.36) K/mm3 Baso # (Auto) (0.01-0.08) K/mm3 Manual Slide Review Puncture Site ABG pH (7.35-7.45) ABG pCO2 (35.0-45.0) mmHg ABG pO2 (80.0-100.0) mmHg ABG HCO3 (22.0-26.0) meq/L ABG O2 Saturation (96.0-97.0) % ABG Base Excess (-2-2.0) Darrell Test A-a Gradient mmHg O2 Delivery Device Oxygen Flow Rate FiO2 (21.00-100.00) % Sodium 137 (136-145) mEq/L Potassium 4.0 (3.5-5.1) mEq/L Chloride 101 (98-107) mEq/L Carbon Dioxide 22 (21-32) mEq/L Anion Gap 18.0 H (5-15) BUN 15 (7-18) mg/dL Creatinine 1.1 H (0.55-1.02) mg/dL Est Cr Clr Drug Dosing 53.67 mL/min Estimated GFR (MDRD) 57 (>60) mL/min BUN/Creatinine Ratio 13.6 L (14-18) Glucose 422 H (74-106) mg/dL POC Glucose (70-105) mg/dL Lactic Acid (0.4-2.0) mmol/L Calcium 7.7 L (8.5-10.1) mg/dL Phosphorus 3.3 (2.6-4.7) mg/dL Magnesium 1.6 L (1.8-2.4) mg/dl Total Bilirubin (0.2-1.0) mg/dL AST (15-37) U/L ALT (14-59) U/L Alkaline Phosphatase (46-116) U/L Total Protein (6.4-8.2) g/dl Albumin (3.4-5.0) g/dl Globulin gm/dL Albumin/Globulin Ratio (1-2) Triglycerides (<150) mg/dL Lipase (73-393) U/L Urine Color (Yellow) Urine Appearance (Clear) Urine pH (5.0-8.0) Ur Specific [place] (1.005-1.030) Urine Protein (Negative) Urine Glucose (UA) (Negative) Urine Ketones (Negative) Urine Occult Blood (Negative) Urine Nitrite (Negative) Urine Bilirubin (Negative) Urine Urobilinogen (0.2-1.0) Ur Leukocyte Esterase (Negative) Urine HCG, Qual (NEGATIVE) Urine Opiates Screen (FNLLPN=433) Ur Buprenorphine Scrn (CUTOFF=10) Ur Oxycodone Screen (TYO7TG=934) Urine Methadone Screen (ZEQVTY=684) Ur Propoxyphene Screen (YEBCGZ=088) Ur Barbiturates Screen (FAWWDA=906) Ur Tricyclics Screen (ELVWVM=065) Ur Phencyclidine Scrn (CUTOFF=25) Ur Amphetamine Screen (ITXIHP=444) U Methamphetamines Scrn (NXSMHY=563) U Benzodiazepines Scrn (PYRVZH=972) U Cocaine Metab Screen (VTUWGG=837) U Marijuana (THC) Screen (CUTOFF=50) Ethyl Alcohol 0.00 (0.00) gm% Ketones 6.86 (0.0-0.3) mM 05/01/20 05/01/20 05/01/20 Range/Units 04:00 04:51 04:51 WBC 11.56 H (3.98-10.04) K/mm3 RBC 2.47 L (3.98-5.22) M/mm3 Hgb 7.2 L* D (11.2-15.7) gm/dl Hct 22.9 L (34.1-44.9) % MCV 92.7 (79.4-94.8) fl MCH 29.1 (25.6-32.2) pg MCHC 31.4 L (32.2-35.5) g/dl RDW Std Deviation 42.3 (36.4-46.3) fL Plt Count 393 H D (182-369) K/mm3 MPV 9.2 L (9.4-12.3) fl Neut % (Auto) 74.8 H (34.0-71.1) % Lymph % (Auto) 16.2 L (19.3-51.7) % [place] % (Auto) 8.0 (4.7-12.5) % Eos % (Auto) 0.1 L (0.7-5.8) Baso % (Auto) 0.1 (0.1-1.2) % Neut # (Auto) 8.65 H (1.56-6.13) K/mm3 Lymph # (Auto) 1.87 (1.18-3.74) K/mm3 [place] # (Auto) 0.93 H (0.24-0.36) K/mm3 Eos # (Auto) 0.01 L (0.04-0.36) K/mm3 Baso # (Auto) 0.01 (0.01-0.08) K/mm3 Manual Slide Review Puncture Site ABG pH (7.35-7.45) ABG pCO2 (35.0-45.0) mmHg ABG pO2 (80.0-100.0) mmHg ABG HCO3 (22.0-26.0) meq/L ABG O2 Saturation (96.0-97.0) % ABG Base Excess (-2-2.0) Darrell Test A-a Gradient mmHg O2 Delivery Device Oxygen Flow Rate FiO2 (21.00-100.00) % Sodium (136-145) mEq/L Potassium (3.5-5.1) mEq/L Chloride (98-107) mEq/L Carbon Dioxide (21-32) mEq/L Anion Gap (5-15) BUN (7-18) mg/dL Creatinine (0.55-1.02) mg/dL Est Cr Clr Drug Dosing mL/min Estimated GFR (MDRD) (>60) mL/min BUN/Creatinine Ratio (14-18) Glucose 374 H (74-106) mg/dL POC Glucose (70-105) mg/dL Lactic Acid 1.5 (0.4-2.0) mmol/L Calcium (8.5-10.1) mg/dL Phosphorus (2.6-4.7) mg/dL Magnesium (1.8-2.4) mg/dl Total Bilirubin (0.2-1.0) mg/dL AST (15-37) U/L ALT (14-59) U/L Alkaline Phosphatase (46-116) U/L Total Protein (6.4-8.2) g/dl Albumin (3.4-5.0) g/dl Globulin gm/dL Albumin/Globulin Ratio (1-2) Triglycerides (<150) mg/dL Lipase (73-393) U/L Urine Color (Yellow) Urine Appearance (Clear) Urine pH (5.0-8.0) Ur Specific [place] (1.005-1.030) Urine Protein (Negative) Urine Glucose (UA) (Negative) Urine Ketones (Negative) Urine Occult Blood (Negative) Urine Nitrite (Negative) Urine Bilirubin (Negative) Urine Urobilinogen (0.2-1.0) Ur Leukocyte Esterase (Negative) Urine HCG, Qual (NEGATIVE) Urine Opiates Screen (WEWAPS=437) Ur Buprenorphine Scrn (CUTOFF=10) Ur Oxycodone Screen (TGQ2BX=335) Urine Methadone Screen (LSAPLB=991) Ur Propoxyphene Screen (COZAFL=349) Ur Barbiturates Screen (ZCDJDB=590) Ur Tricyclics Screen (NCKPAS=221) Ur Phencyclidine Scrn (CUTOFF=25) Ur Amphetamine Screen (RFAMJV=816) U Methamphetamines Scrn (YLROWV=586) U Benzodiazepines Scrn (NWFOCD=075) U Cocaine Metab Screen (AVJLRI=046) U Marijuana (THC) Screen (CUTOFF=50) Ethyl Alcohol (0.00) gm% Ketones (0.0-0.3) mM 05/01/20 05/01/20 05/01/20 Range/Units 04:57 05:01 05:59 WBC (3.98-10.04) K/mm3 RBC (3.98-5.22) M/mm3 Hgb (11.2-15.7) gm/dl Hct (34.1-44.9) % MCV (79.4-94.8) fl MCH (25.6-32.2) pg MCHC (32.2-35.5) g/dl RDW Std Deviation (36.4-46.3) fL Plt Count (182-369) K/mm3 MPV (9.4-12.3) fl Neut % (Auto) (34.0-71.1) % Lymph % (Auto) (19.3-51.7) % [place] % (Auto) (4.7-12.5) % Eos % (Auto) (0.7-5.8) Baso % (Auto) (0.1-1.2) % Neut # (Auto) (1.56-6.13) K/mm3 Lymph # (Auto) (1.18-3.74) K/mm3 [place] # (Auto) (0.24-0.36) K/mm3 Eos # (Auto) (0.04-0.36) K/mm3 Baso # (Auto) (0.01-0.08) K/mm3 Manual Slide Review Puncture Site ABG pH (7.35-7.45) ABG pCO2 (35.0-45.0) mmHg ABG pO2 (80.0-100.0) mmHg ABG HCO3 (22.0-26.0) meq/L ABG O2 Saturation (96.0-97.0) % ABG Base Excess (-2-2.0) Darrell Test A-a Gradient mmHg O2 Delivery Device Oxygen Flow Rate FiO2 (21.00-100.00) % Sodium 139 (136-145) mEq/L Potassium 3.5 (3.5-5.1) mEq/L Chloride 103 (98-107) mEq/L Carbon Dioxide 25 (21-32) mEq/L Anion Gap 14.5 (5-15) BUN 14 (7-18) mg/dL Creatinine 1.0 (0.55-1.02) mg/dL Est Cr Clr Drug Dosing 59.04 mL/min Estimated GFR (MDRD) > 60 (>60) mL/min BUN/Creatinine Ratio 14.0 (14-18) Glucose 321 H (74-106) mg/dL POC Glucose 350 H 335 H (70-105) mg/dL Lactic Acid (0.4-2.0) mmol/L Calcium 7.3 L (8.5-10.1) mg/dL Phosphorus 2.2 L (2.6-4.7) mg/dL Magnesium 1.4 L (1.8-2.4) mg/dl Total Bilirubin (0.2-1.0) mg/dL AST (15-37) U/L ALT (14-59) U/L Alkaline Phosphatase (46-116) U/L Total Protein (6.4-8.2) g/dl Albumin (3.4-5.0) g/dl Globulin gm/dL Albumin/Globulin Ratio (1-2) Triglycerides (<150) mg/dL Lipase (73-393) U/L Urine Color (Yellow) Urine Appearance (Clear) Urine pH (5.0-8.0) Ur Specific [place] (1.005-1.030) Urine Protein (Negative) Urine Glucose (UA) (Negative) Urine Ketones (Negative) Urine Occult Blood (Negative) Urine Nitrite (Negative) Urine Bilirubin (Negative) Urine Urobilinogen (0.2-1.0) Ur Leukocyte Esterase (Negative) Urine HCG, Qual (NEGATIVE) Urine Opiates Screen (LTACPW=718) Ur Buprenorphine Scrn (CUTOFF=10) Ur Oxycodone Screen (QPT1WS=430) Urine Methadone Screen (DWWPFP=209) Ur Propoxyphene Screen (SERNEO=808) Ur Barbiturates Screen (BXVIIF=807) Ur Tricyclics Screen (HKYENL=764) Ur Phencyclidine Scrn (CUTOFF=25) Ur Amphetamine Screen (KAIVDH=915) U Methamphetamines Scrn (DRFMWE=657) U Benzodiazepines Scrn (CAPZTG=441) U Cocaine Metab Screen (GIUHCT=141) U Marijuana (THC) Screen (CUTOFF=50) Ethyl Alcohol (0.00) gm% Ketones (0.0-0.3) mM 05/01/20 05/01/20 05/01/20 Range/Units 06:00 06:52 07:50 WBC (3.98-10.04) K/mm3 RBC (3.98-5.22) M/mm3 Hgb 7.6 L (11.2-15.7) gm/dl Hct (34.1-44.9) % MCV (79.4-94.8) fl MCH (25.6-32.2) pg MCHC (32.2-35.5) g/dl RDW Std Deviation (36.4-46.3) fL Plt Count (182-369) K/mm3 MPV (9.4-12.3) fl Neut % (Auto) (34.0-71.1) % Lymph % (Auto) (19.3-51.7) % [place] % (Auto) (4.7-12.5) % Eos % (Auto) (0.7-5.8) Baso % (Auto) (0.1-1.2) % Neut # (Auto) (1.56-6.13) K/mm3 Lymph # (Auto) (1.18-3.74) K/mm3 [place] # (Auto) (0.24-0.36) K/mm3 Eos # (Auto) (0.04-0.36) K/mm3 Baso # (Auto) (0.01-0.08) K/mm3 Manual Slide Review Puncture Site Lt radial ABG pH 7.37 (7.35-7.45) ABG pCO2 48.2 H (35.0-45.0) mmHg ABG pO2 118.0 H (80.0-100.0) mmHg ABG HCO3 27.0 H (22.0-26.0) meq/L ABG O2 Saturation 98.8 H (96.0-97.0) % ABG Base Excess 1.9 (-2-2.0) Darrell Test Positive A-a Gradient 22 mmHg O2 Delivery Device Nasal cannula Oxygen Flow Rate 2.0 FiO2 28.00 (21.00-100.00) % Sodium (136-145) mEq/L Potassium (3.5-5.1) mEq/L Chloride (98-107) mEq/L Carbon Dioxide (21-32) mEq/L Anion Gap (5-15) BUN (7-18) mg/dL Creatinine (0.55-1.02) mg/dL Est Cr Clr Drug Dosing mL/min Estimated GFR (MDRD) (>60) mL/min BUN/Creatinine Ratio (14-18) Glucose (74-106) mg/dL POC Glucose 241 H (70-105) mg/dL Lactic Acid (0.4-2.0) mmol/L Calcium (8.5-10.1) mg/dL Phosphorus (2.6-4.7) mg/dL Magnesium (1.8-2.4) mg/dl Total Bilirubin (0.2-1.0) mg/dL AST (15-37) U/L ALT (14-59) U/L Alkaline Phosphatase (46-116) U/L Total Protein (6.4-8.2) g/dl Albumin (3.4-5.0) g/dl Globulin gm/dL Albumin/Globulin Ratio (1-2) Triglycerides (<150) mg/dL Lipase (73-393) U/L Urine Color (Yellow) Urine Appearance (Clear) Urine pH (5.0-8.0) Ur Specific [place] (1.005-1.030) Urine Protein (Negative) Urine Glucose (UA) (Negative) Urine Ketones (Negative) Urine Occult Blood (Negative) Urine Nitrite (Negative) Urine Bilirubin (Negative) Urine Urobilinogen (0.2-1.0) Ur Leukocyte Esterase (Negative) Urine HCG, Qual (NEGATIVE) Urine Opiates Screen (MRNSJS=104) Ur Buprenorphine Scrn (CUTOFF=10) Ur Oxycodone Screen (HOO6CS=106) Urine Methadone Screen (BOEMWG=154) Ur Propoxyphene Screen (FBKTKC=637) Ur Barbiturates Screen (LWJJOS=405) Ur Tricyclics Screen (FOGDTV=066) Ur Phencyclidine Scrn (CUTOFF=25) Ur Amphetamine Screen (GKLXWX=126) U Methamphetamines Scrn (UFFDHK=897) U Benzodiazepines Scrn (ISDQUY=697) U Cocaine Metab Screen (KHTZKE=904) U Marijuana (THC) Screen (CUTOFF=50) Ethyl Alcohol (0.00) gm% Ketones (0.0-0.3) mM 05/01/20 05/01/20 05/01/20 Range/Units 08:04 08:57 10:12 WBC (3.98-10.04) K/mm3 RBC (3.98-5.22) M/mm3 Hgb (11.2-15.7) gm/dl Hct (34.1-44.9) % MCV (79.4-94.8) fl MCH (25.6-32.2) pg MCHC (32.2-35.5) g/dl RDW Std Deviation (36.4-46.3) fL Plt Count (182-369) K/mm3 MPV (9.4-12.3) fl Neut % (Auto) (34.0-71.1) % Lymph % (Auto) (19.3-51.7) % [place] % (Auto) (4.7-12.5) % Eos % (Auto) (0.7-5.8) Baso % (Auto) (0.1-1.2) % Neut # (Auto) (1.56-6.13) K/mm3 Lymph # (Auto) (1.18-3.74) K/mm3 [place] # (Auto) (0.24-0.36) K/mm3 Eos # (Auto) (0.04-0.36) K/mm3 Baso # (Auto) (0.01-0.08) K/mm3 Manual Slide Review Puncture Site ABG pH (7.35-7.45) ABG pCO2 (35.0-45.0) mmHg ABG pO2 (80.0-100.0) mmHg ABG HCO3 (22.0-26.0) meq/L ABG O2 Saturation (96.0-97.0) % ABG Base Excess (-2-2.0) Darrell Test A-a Gradient mmHg O2 Delivery Device Oxygen Flow Rate FiO2 (21.00-100.00) % Sodium (136-145) mEq/L Potassium (3.5-5.1) mEq/L Chloride (98-107) mEq/L Carbon Dioxide (21-32) mEq/L Anion Gap (5-15) BUN (7-18) mg/dL Creatinine (0.55-1.02) mg/dL Est Cr Clr Drug Dosing mL/min Estimated GFR (MDRD) (>60) mL/min BUN/Creatinine Ratio (14-18) Glucose (74-106) mg/dL POC Glucose 208 H 176 H 159 H (70-105) mg/dL Lactic Acid (0.4-2.0) mmol/L Calcium (8.5-10.1) mg/dL Phosphorus (2.6-4.7) mg/dL Magnesium (1.8-2.4) mg/dl Total Bilirubin (0.2-1.0) mg/dL AST (15-37) U/L ALT (14-59) U/L Alkaline Phosphatase (46-116) U/L Total Protein (6.4-8.2) g/dl Albumin (3.4-5.0) g/dl Globulin gm/dL Albumin/Globulin Ratio (1-2) Triglycerides (<150) mg/dL Lipase (73-393) U/L Urine Color (Yellow) Urine Appearance (Clear) Urine pH (5.0-8.0) Ur Specific [place] (1.005-1.030) Urine Protein (Negative) Urine Glucose (UA) (Negative) Urine Ketones (Negative) Urine Occult Blood (Negative) Urine Nitrite (Negative) Urine Bilirubin (Negative) Urine Urobilinogen (0.2-1.0) Ur Leukocyte Esterase (Negative) Urine HCG, Qual (NEGATIVE) Urine Opiates Screen (JZKJCG=426) Ur Buprenorphine Scrn (CUTOFF=10) Ur Oxycodone Screen (DQW2PU=567) Urine Methadone Screen (SAOEIC=552) Ur Propoxyphene Screen (FRCZFI=701) Ur Barbiturates Screen (YFZYXW=272) Ur Tricyclics Screen (AYZJSZ=500) Ur Phencyclidine Scrn (CUTOFF=25) Ur Amphetamine Screen (QSSPSA=458) U Methamphetamines Scrn (EPVJQD=803) U Benzodiazepines Scrn (NLTSAQ=677) U Cocaine Metab Screen (KACAKO=117) U Marijuana (THC) Screen (CUTOFF=50) Ethyl Alcohol (0.00) gm% Ketones (0.0-0.3) mM 05/01/20 05/01/20 05/01/20 Range/Units 10:34 10:34 10:57 WBC (3.98-10.04) K/mm3 RBC (3.98-5.22) M/mm3 Hgb (11.2-15.7) gm/dl Hct (34.1-44.9) % MCV (79.4-94.8) fl MCH (25.6-32.2) pg MCHC (32.2-35.5) g/dl RDW Std Deviation (36.4-46.3) fL Plt Count (182-369) K/mm3 MPV (9.4-12.3) fl Neut % (Auto) (34.0-71.1) % Lymph % (Auto) (19.3-51.7) % [place] % (Auto) (4.7-12.5) % Eos % (Auto) (0.7-5.8) Baso % (Auto) (0.1-1.2) % Neut # (Auto) (1.56-6.13) K/mm3 Lymph # (Auto) (1.18-3.74) K/mm3 [place] # (Auto) (0.24-0.36) K/mm3 Eos # (Auto) (0.04-0.36) K/mm3 Baso # (Auto) (0.01-0.08) K/mm3 Manual Slide Review Puncture Site ABG pH (7.35-7.45) ABG pCO2 (35.0-45.0) mmHg ABG pO2 (80.0-100.0) mmHg ABG HCO3 (22.0-26.0) meq/L ABG O2 Saturation (96.0-97.0) % ABG Base Excess (-2-2.0) Darrell Test A-a Gradient mmHg O2 Delivery Device Oxygen Flow Rate FiO2 (21.00-100.00) % Sodium 138 (136-145) mEq/L Potassium 3.7 (3.5-5.1) mEq/L Chloride 103 (98-107) mEq/L Carbon Dioxide 28 (21-32) mEq/L Anion Gap 10.7 (5-15) BUN 14 (7-18) mg/dL Creatinine 0.9 (0.55-1.02) mg/dL Est Cr Clr Drug Dosing 65.60 mL/min Estimated GFR (MDRD) > 60 (>60) mL/min BUN/Creatinine Ratio 15.6 (14-18) Glucose 156 H (74-106) mg/dL POC Glucose 157 H (70-105) mg/dL Lactic Acid (0.4-2.0) mmol/L Calcium 7.8 L (8.5-10.1) mg/dL Phosphorus 2.0 L (2.6-4.7) mg/dL Magnesium 2.6 H (1.8-2.4) mg/dl Total Bilirubin (0.2-1.0) mg/dL AST (15-37) U/L ALT (14-59) U/L Alkaline Phosphatase (46-116) U/L Total Protein (6.4-8.2) g/dl Albumin (3.4-5.0) g/dl Globulin gm/dL Albumin/Globulin Ratio (1-2) Triglycerides (<150) mg/dL Lipase (73-393) U/L Urine Color (Yellow) Urine Appearance (Clear) Urine pH (5.0-8.0) Ur Specific [place] (1.005-1.030) Urine Protein (Negative) Urine Glucose (UA) (Negative) Urine Ketones (Negative) Urine Occult Blood (Negative) Urine Nitrite (Negative) Urine Bilirubin (Negative) Urine Urobilinogen (0.2-1.0) Ur Leukocyte Esterase (Negative) Urine HCG, Qual (NEGATIVE) Urine Opiates Screen (CVTEHI=251) Ur Buprenorphine Scrn (CUTOFF=10) Ur Oxycodone Screen (HVQ7TO=584) Urine Methadone Screen (LVHSTH=965) Ur Propoxyphene Screen (MPOOVB=675) Ur Barbiturates Screen (TITSDI=373) Ur Tricyclics Screen (JFBMWJ=047) Ur Phencyclidine Scrn (CUTOFF=25) Ur Amphetamine Screen (OWEAWH=418) U Methamphetamines Scrn (RDXMHF=508) U Benzodiazepines Scrn (JWILLU=850) U Cocaine Metab Screen (IJJFCD=609) U Marijuana (THC) Screen (CUTOFF=50) Ethyl Alcohol (0.00) gm% Ketones 1.395 (0.0-0.3) mM 05/01/20 05/01/20 Range/Units 11:56 13:15 WBC (3.98-10.04) K/mm3 RBC (3.98-5.22) M/mm3 Hgb (11.2-15.7) gm/dl Hct (34.1-44.9) % MCV (79.4-94.8) fl MCH (25.6-32.2) pg MCHC (32.2-35.5) g/dl RDW Std Deviation (36.4-46.3) fL Plt Count (182-369) K/mm3 MPV (9.4-12.3) fl Neut % (Auto) (34.0-71.1) % Lymph % (Auto) (19.3-51.7) % [place] % (Auto) (4.7-12.5) % Eos % (Auto) (0.7-5.8) Baso % (Auto) (0.1-1.2) % Neut # (Auto) (1.56-6.13) K/mm3 Lymph # (Auto) (1.18-3.74) K/mm3 [place] # (Auto) (0.24-0.36) K/mm3 Eos # (Auto) (0.04-0.36) K/mm3 Baso # (Auto) (0.01-0.08) K/mm3 Manual Slide Review Puncture Site ABG pH (7.35-7.45) ABG pCO2 (35.0-45.0) mmHg ABG pO2 (80.0-100.0) mmHg ABG HCO3 (22.0-26.0) meq/L ABG O2 Saturation (96.0-97.0) % ABG Base Excess (-2-2.0) Darrell Test A-a Gradient mmHg O2 Delivery Device Oxygen Flow Rate FiO2 (21.00-100.00) % Sodium (136-145) mEq/L Potassium (3.5-5.1) mEq/L Chloride (98-107) mEq/L Carbon Dioxide (21-32) mEq/L Anion Gap (5-15) BUN (7-18) mg/dL Creatinine (0.55-1.02) mg/dL Est Cr Clr Drug Dosing mL/min Estimated GFR (MDRD) (>60) mL/min BUN/Creatinine Ratio (14-18) Glucose (74-106) mg/dL POC Glucose 123 H 87 (70-105) mg/dL Lactic Acid (0.4-2.0) mmol/L Calcium (8.5-10.1) mg/dL Phosphorus (2.6-4.7) mg/dL Magnesium (1.8-2.4) mg/dl Total Bilirubin (0.2-1.0) mg/dL AST (15-37) U/L ALT (14-59) U/L Alkaline Phosphatase (46-116) U/L Total Protein (6.4-8.2) g/dl Albumin (3.4-5.0) g/dl Globulin gm/dL Albumin/Globulin Ratio (1-2) Triglycerides (<150) mg/dL Lipase (73-393) U/L Urine Color (Yellow) Urine Appearance (Clear) Urine pH (5.0-8.0) Ur Specific [place] (1.005-1.030) Urine Protein (Negative) Urine Glucose (UA) (Negative) Urine Ketones (Negative) Urine Occult Blood (Negative) Urine Nitrite (Negative) Urine Bilirubin (Negative) Urine Urobilinogen (0.2-1.0) Ur Leukocyte Esterase (Negative) Urine HCG, Qual (NEGATIVE) Urine Opiates Screen (BPNGZZ=378) Ur Buprenorphine Scrn (CUTOFF=10) Ur Oxycodone Screen (WWB9YY=203) Urine Methadone Screen (JHWUZJ=789) Ur Propoxyphene Screen (ENEYRU=332) Ur Barbiturates Screen (DIHMNI=327) Ur Tricyclics Screen (RQHVLY=958) Ur Phencyclidine Scrn (CUTOFF=25) Ur Amphetamine Screen (DSSXSP=782) U Methamphetamines Scrn (KXFMYA=554) U Benzodiazepines Scrn (CHURYB=069) U Cocaine Metab Screen (MLMCXU=067) U Marijuana (THC) Screen (CUTOFF=50) Ethyl Alcohol (0.00) gm% Ketones (0.0-0.3) mM Med Orders - Current: Current Medications Enoxaparin Sodium (Lovenox) 40 mg SUBCUT DAILY COUNT INCLUDES THE [facility] Last Admin: 05/01/20 08:07 Dose: 40 mg Lactated Ringer's (Ringers, Lactated) 1,000 mls @ 999 mls/hr IV ASDIRECTED COUNT INCLUDES THE [facility] Stop: 05/02/20 03:16 Last Admin: 05/01/20 04:12 Dose: 999 mls/hr Potassium Phosphate 30 mmole/ (Sodium Chloride) 510 mls @ 102 mls/hr IV ONETIME ONE Stop: 05/01/20 17:59 Last Admin: 05/01/20 13:17 Dose: 102 mls/hr Magnesium Sulfate 4 gm/ Premix 50 mls @ 12.5 mls/hr IV ONETIME ONE Stop: 05/01/20 14:59 Last Admin: 05/01/20 10:58 Dose: 12.5 mls/hr Lactated Ringer's (Ringers, Lactated) 1,000 mls @ 75 mls/hr IV ASDIRECTED COUNT INCLUDES THE [facility] Insulin Glargine (Lantus) 20 unit SUBCUT DAILY COUNT INCLUDES THE [facility] Insulin Human Lispro (Humalog) 9 unit SUBCUT TIDMEALS COUNT INCLUDES THE [facility] Miscellaneous Information (Remove Patch) 1 ea TRDERM DAILY COUNT INCLUDES THE [facility] Nicotine (Habitrol) 21 mg TRDERM DAILY COUNT INCLUDES THE [facility] Last Admin: 05/01/20 08:07 Dose: 21 mg Ondansetron HCl (Zofran) 4 mg IV Q6H PRN PRN Reason: Nausea/Vomiting Last Admin: 05/01/20 10:16 Dose: 4 mg Discontinued Medications Fentanyl (Sublimaze) 50 mcg IVPUSH ONETIME ONE Stop: 05/01/20 00:59 Last Admin: 05/01/20 01:03 Dose: 50 mcg Fentanyl (Sublimaze) 50 mcg IVPUSH ONETIME ONE Stop: 05/01/20 01:59 Last Admin: 05/01/20 02:03 Dose: 50 mcg Sodium Chloride (Normal Saline) 1,000 mls @ 999 mls/hr IV ONETIME ONE Stop: 05/01/20 00:48 Last Admin: 05/01/20 00:27 Dose: 999 mls/hr Insulin Human Regular 100 unit (/ Sodium Chloride) 100 mls @ 4.76 mls/hr IV TITRATE TONIO; Protocol Stop: 05/01/20 13:30 Last Titration: 05/01/20 13:18 Dose: 0 units/kg/hr, 0 mls/hr Sodium Chloride (Normal Saline) Confirm Administered Dose 100 mls @ as directed .ROUTE .ST-MED ONE Stop: 05/01/20 01:27 Last Admin: 05/01/20 01:41 Dose: Not Given Sodium Chloride (Normal Saline) Confirm Administered Dose 1,000 mls @ as directed .ROUTE .ST-MED ONE Stop: 05/01/20 01:36 Last Admin: 05/01/20 01:41 Dose: Not Given Sodium Chloride (Normal Saline) 1,000 mls @ 999 mls/hr IV ONETIME ONE Stop: 05/01/20 02:41 Last Admin: 05/01/20 01:53 Dose: 999 mls/hr Dextrose/Water (Dextrose 10% In Water) 1,000 mls @ 40 mls/hr IV ASDIRECTED COUNT INCLUDES THE [facility] Stop: 05/02/20 10:00 Last Admin: 05/01/20 09:04 Dose: 40 mls/hr Lactated Ringer's (Ringers, Lactated) 1,000 mls @ 150 mls/hr IV ASDIRECTED COUNT INCLUDES THE [facility] Last Admin: 05/01/20 09:40 Dose: 150 mls/hr Piperacillin Sod/Tazobactam (Sod 4.5 gm/ Sodium Chloride) 100 mls @ 200 mls/hr IV ONETIME ONE Stop: 05/01/20 03:59 Last Admin: 05/01/20 03:45 Dose: 200 mls/hr Piperacillin Sod/Tazobactam (Sod 4.5 gm/ Sodium Chloride) 100 mls @ 25 mls/hr IV Q8H COUNT INCLUDES THE [facility] Magnesium Sulfate 4 gm/ Premix 50 mls @ 12.5 mls/hr IV ONETIME ONE Stop: 05/01/20 08:26 Last Admin: 05/01/20 04:59 Dose: Not Given Potassium Chloride 10 meq/ (Premix) 100 mls @ 100 mls/hr IV Q1H COUNT INCLUDES THE [facility] Stop: 05/01/20 12:59 Last Admin: 05/01/20 11:53 Dose: 100 mls/hr Insulin Glargine (Lantus) 54 unit SUBCUT DAILY COUNT INCLUDES THE [facility] Last Admin: 05/01/20 13:25 Dose: Not Given Insulin Human Regular (Humulin R) 4 unit IV ONETIME ONE Stop: 04/30/20 23:49 Last Admin: 05/01/20 00:28 Dose: 4 unit Insulin Human Regular (Humulin R) 10 unit IV ONETIME ONE Stop: 05/01/20 03:57 Last Admin: 05/01/20 04:08 Dose: 10 unit Morphine Sulfate (Morphine) 1 mg IVPUSH ONETIME ONE Stop: 05/01/20 03:13 Last Admin: 05/01/20 03:21 Dose: 1 mg Ondansetron HCl (Zofran) 4 mg IVPUSH ONETIME ONE Stop: 04/30/20 23:56 Last Admin: 05/01/20 00:27 Dose: 4 mg - Exam Quality Assessment: Urine Catheter, DVT Prophylaxis. No: Supplemental Oxygen General: Alert, Oriented, Cooperative, No Acute Distress HEENT: Pupils Equal, Pupils Reactive, Mucous Membr. Moist/[place] Neck: Supple, Trachea Midline Lungs: Clear to Auscultation, Normal Respiratory Effort Cardiovascular: Regular Rate, Regular Rhythm GI/Abdominal Exam: Normal Bowel Sounds, Soft, No Organomegaly, No Distention, Tender (Generalized ) (Female) Exam: Deferred Back Exam: Full Range of Motion Extremities: Normal Inspection, Normal Range of Motion, Non-Tender, No Pedal Edema, Normal Capillary Refill Skin: Warm, Dry, Intact Neurological: No New Focal Deficit Psy/Mental Status: Alert Sepsis Event Note - Evaluation Sepsis Screening Result: No Definite Risk - Focused Exam Vital Signs: Vital Signs Temp Pulse Resp BP BP Pulse Ox Pulse Ox 05/01/20 08:01 114 H 0 L 100 05/01/20 08:00 97.8 F 117 H 25 H 143/109 H 100 05/01/20 07:59 101 H 22 H 100 05/01/20 07:01 99 17 117/64 100 05/01/20 07:00 98 13 100 05/01/20 05:00 98.5 F 95 15 137/76 100 05/01/20 04:32 88 L 05/01/20 04:03 98.3 F 98 16 118/68 100 05/01/20 03:00 98.1 F 100 14 127/73 100 05/01/20 02:10 98.8 F 103 H 15 139/80 100 Date Exam was Performed: 05/01/20 Time Exam was Performed: 14:00 - Problem List & Annotations (1) Acute kidney injury SNOMED Code(s): 01103869, 63946949 Code(s): N17.9 - ACUTE KIDNEY FAILURE, UNSPECIFIED Status: Resolved Priority: High Current Visit: Yes (2) Cachectic SNOMED Code(s): 355877185 Code(s): R64 - CACHEXIA Status: Chronic Priority: Medium Current Visit : Yes (3) Chronic respiratory alkalosis SNOMED Code(s): 70458609 Code(s): E87.3 - ALKALOSIS Status: Chronic Priority: Medium Current Visit: Yes (4) High anion gap metabolic acidosis SNOMED Code(s): 65712407 Code(s): E87.2 - ACIDOSIS Status: Acute Priority: High Current Visit: Yes (5) Hypoalbuminemia SNOMED Code(s): 149545761 Code(s): E88.09 - OTH DISORDERS OF PLASMA-PROTEIN METABOLISM, NEC Status: Acute Priority: High Current Visit: Yes (6) Hyponatremia SNOMED Code(s): 91064669 Code(s): E87.1 - HYPO-OSMOLALITY AND HYPONATREMIA Status: Resolved Current Visit: Yes (7) Leukocytosis SNOMED Code(s): 590375412, 350910105 Code(s): D72.829 - ELEVATED WHITE BLOOD CELL COUNT, UNSPECIFIED Status: Acute Priority: Medium Current Visit: Yes Qualifiers: Leukocytosis type: unspecified Qualified Code(s): D72.829 - Elevated white blood cell count, unspecified (8) Medical non-compliance SNOMED Code(s): 134135730 Code(s): Z91.19 - PATIENT'S NONCOMPLIANCE W OTH MEDICAL TREATMENT AND REGIMEN Status: Chronic Priority: High Current Visit: Yes (9) Normocytic normochromic anemia SNOMED Code(s): 34173414 Code(s): D64.9 - ANEMIA, UNSPECIFIED Status: Acute Priority: High Current Visit: Yes (10) Thrombocytosis SNOMED Code(s): 1911223 Code(s): D47.3 - ESSENTIAL (HEMORRHAGIC) THROMBOCYTHEMIA Status: Acute Priority: Medium Current Visit: Yes (11) Diabetic ketoacidosis SNOMED Code(s): 203788498, 294913711 Code(s): E11.10 - TYPE 2 DIABETES MELLITUS WITH KETOACIDOSIS WITHOUT COMA Status: Acute Priority: High Current Visit: Yes Qualifiers: Diabetes mellitus type: type 1 Diabetes mellitus complication detail: without coma Qualified Code(s): E10.10 - Type 1 diabetes mellitus with ketoacidosis without coma (12) Nausea and vomiting SNOMED Code(s): 91191853 Code(s): R11.2 - NAUSEA WITH VOMITING, UNSPECIFIED Status: Acute Priority : High Current Visit: Yes Qualifiers: Vomiting type: unspecified Vomiting Intractability: non-intractable Qualified Code(s): R11.2 - Nausea with vomiting, unspecified (13) Opioid dependence in controlled environment SNOMED Code(s): 82660726 Code(s): F11.20 - OPIOID DEPENDENCE, UNCOMPLICATED Status: Acute Priority : High Current Visit: Yes (14) Type I diabetes mellitus SNOMED Code(s): 91654384 Code(s): E10.9 - TYPE 1 DIABETES MELLITUS WITHOUT COMPLICATIONS Status: Chronic Priority: High Current Visit: No Qualifiers: Diabetes mellitus complication status: with neurologic complications Diabetes mellitus complication detail: with unspecified neuropathy Qualified Code(s): E10.40 - Type 1 diabetes mellitus with diabetic neuropathy, unspecified (15) Hypophosphatemia SNOMED Code(s): 6461525 Code(s): E83.39 - OTHER DISORDERS OF PHOSPHORUS METABOLISM Status: Acute Priority: High Current Visit: Yes - Problem List Review Problem List Initiated/Reviewed/Updated: Yes - Plan Plan:: ASSESSMENT - Admission for DKA, discharged with stable glycemi left ear 9 - When she arrived at home glucose started trending up a couple of hours later - Reports numbers in the upper 200s and 300s - Associated intractable nausea and vomiting - Accu-Chek today showed level greater than 400 - Labs - Glucose 646 - WBC 16.08, hemoglobin 10.3, platelets 600 - Sodium 133, corrects with glucose adjustment, chloride of 92, potassium 4.6 , CO2 16 - Anion gap 30 with ketones of 12.47 - Lactate 7.4, multifactorial - GFR for 43 - ABGs 7.37/20 4.1 4/105/35/98 - Albumin 2.8 - Qualifies for severe sepsis with tachycardia and elevated white blood cell count as well as elevated lactic acid, her fluid bolus is 1700 - Patient has drug-seeking behavior for which a urine drug screen will be performed - Poor peripheral intravenous access for which central line was placed Day 1 Repeat UA negative - NO SEPSIS AND NOT UTI Sodium WNL Phosphorous 2.0 Magnesium 2.6 - elevated 2/2 oversupplementation Repeat lactic acid WNL - elevated due to DKA process and not sepsis Gap has closed ADA diet started Glucose range 422-87 UDS negative Diabetic ketoacidosis High anion gap metabolic acidosis Nausea and vomiting Hypophosphatemia Type I diabetes mellitus - A1C 11.3% on 04/22/20 Discontinue Zosyn - no signs of UTI or sepsis - see addendum IV fluid as ordered Gap has closed Repeat labs in AM SC insulin as ordered Antiemetics as ordered 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 Discharge is highly likely in the next 1-2 days once glucose is controlled Contacted by patients PCP - Fanta Canseco PA-C. She reports she will be passing patient care to Dr. Medrano, Internal Medicine from this point forward as patient is very complicated. Patients upcoming appointment with Cherri was canceled and instead changed to Dr. Medrano.
[2020-05-01] MEDS ORDERED: Lactated Ringers 1,000 ML IV SCH (14:00)
[2020-05-01] MEDS: Pantoprazole 40 MG Tab.CR PO SCH ×2 (15:12→20:16)
[2020-05-01] MEDS ORDERED: Insulin Lispro 100 Units/ML 3 ML Vial SUBCUT SCH (17:00)
[2020-05-01] MEDS: Insulin Lispro 100 Units/ML 3 ML Vial SUBCUT SCH (17:11)
[2020-05-01] MEDS: NALOXONE SCH (19:02)
[2020-05-01] MEDS: BUPRENORPHINE SCH (19:02)
--- NOTE | 2020-05-02 07:59 | PCM.PN ---
- General Info Date of Service: 05/02/20 Admission Dx/Problem (Free Text): Admission Diagnosis/Problem Admission Diagnosis/Problem Diabetic ketoacidosis Subjective Update: Patient states that she is feeling much better today. She has less abdominal pain, though it is still present with moderate severity, she has a better appetite, and she was able to walk in the halls last night without difficulty. She is requesting to have her urinary catheter removed. She does state that prior to admission and when she first was admitted she did have hematemesis. She states often she will start to vomit in the first 2-3 times she vomits there is no blood, but then she starts having hematemesis following the second or third emesis. - Review of Systems General: Reports: Fatigue HEENT: Reports: No Symptoms Pulmonary: Reports: No Symptoms Cardiovascular: Reports: No Symptoms Gastrointestinal: Reports: Abdominal Pain Neurological: Reports: No Symptoms - Patient Data Vitals - Most Recent: Last Vital Signs Temp 98.6 F 05/02/20 04:00 Pulse 84 05/02/20 04:01 Resp 15 05/02/20 04:00 BP 110/64 05/02/20 04:01 Pulse Ox 98 05/02/20 04:01 Weight - Most Recent: 109 lb I&O - Last 24 Hours: Intake & Output 05/01/20 05/02/20 05/02/20 22:59 06:59 14:59 Intake Total 1250 2155 Output Total 275 430 Balance 975 1725 Lab Results Last 24 Hours: Laboratory Results - last 24 hr 05/01/20 05/01/20 05/01/20 Range/Units 07:50 08:04 08:57 WBC (3.98-10.04) K/mm3 RBC (3.98-5.22) M/mm3 Hgb (11.2-15.7) gm/dl Hct (34.1-44.9) % MCV (79.4-94.8) fl MCH (25.6-32.2) pg MCHC (32.2-35.5) g/dl RDW Std Deviation (36.4-46.3) fL Plt Count (182-369) K/mm3 MPV (9.4-12.3) fl Neut % (Auto) (34.0-71.1) % Lymph % (Auto) (19.3-51.7) % [place] % (Auto) (4.7-12.5) % Eos % (Auto) (0.7-5.8) Baso % (Auto) (0.1-1.2) % Neut # (Auto) (1.56-6.13) K/mm3 Lymph # (Auto) (1.18-3.74) K/mm3 [place] # (Auto) (0.24-0.36) K/mm3 Eos # (Auto) (0.04-0.36) K/mm3 Baso # (Auto) (0.01-0.08) K/mm3 Puncture Site Lt radial ABG pH 7.37 (7.35-7.45) ABG pCO2 48.2 H (35.0-45.0) mmHg ABG pO2 118.0 H (80.0-100.0) mmHg ABG HCO3 27.0 H (22.0-26.0) meq/L ABG O2 Saturation 98.8 H (96.0-97.0) % ABG Base Excess 1.9 (-2-2.0) Darrell Test Positive A-a Gradient 22 mmHg O2 Delivery Device Nasal cannula Oxygen Flow Rate 2.0 FiO2 28.00 (21.00-100.00) % Sodium (136-145) mEq/L Potassium (3.5-5.1) mEq/L Chloride (98-107) mEq/L Carbon Dioxide (21-32) mEq/L Anion Gap (5-15) BUN (7-18) mg/dL Creatinine (0.55-1.02) mg/dL Est Cr Clr Drug Dosing mL/min Estimated GFR (MDRD) (>60) mL/min BUN/Creatinine Ratio (14-18) Glucose (74-106) mg/dL POC Glucose 208 H 176 H (70-105) mg/dL Calcium (8.5-10.1) mg/dL Phosphorus (2.6-4.7) mg/dL Magnesium (1.8-2.4) mg/dl Triglycerides (<150) mg/dL Vitamin B12 (193-986) pg/ml Ketones (0.0-0.3) mM 05/01/20 05/01/20 05/01/20 Range/Units 10:12 10:34 10:34 WBC (3.98-10.04) K/mm3 RBC (3.98-5.22) M/mm3 Hgb (11.2-15.7) gm/dl Hct (34.1-44.9) % MCV (79.4-94.8) fl MCH (25.6-32.2) pg MCHC (32.2-35.5) g/dl RDW Std Deviation (36.4-46.3) fL Plt Count (182-369) K/mm3 MPV (9.4-12.3) fl Neut % (Auto) (34.0-71.1) % Lymph % (Auto) (19.3-51.7) % [place] % (Auto) (4.7-12.5) % Eos % (Auto) (0.7-5.8) Baso % (Auto) (0.1-1.2) % Neut # (Auto) (1.56-6.13) K/mm3 Lymph # (Auto) (1.18-3.74) K/mm3 [place] # (Auto) (0.24-0.36) K/mm3 Eos # (Auto) (0.04-0.36) K/mm3 Baso # (Auto) (0.01-0.08) K/mm3 Puncture Site ABG pH (7.35-7.45) ABG pCO2 (35.0-45.0) mmHg ABG pO2 (80.0-100.0) mmHg ABG HCO3 (22.0-26.0) meq/L ABG O2 Saturation (96.0-97.0) % ABG Base Excess (-2-2.0) Darrell Test A-a Gradient mmHg O2 Delivery Device Oxygen Flow Rate FiO2 (21.00-100.00) % Sodium 138 (136-145) mEq/L Potassium 3.7 (3.5-5.1) mEq/L Chloride 103 (98-107) mEq/L Carbon Dioxide 28 (21-32) mEq/L Anion Gap 10.7 (5-15) BUN 14 (7-18) mg/dL Creatinine 0.9 (0.55-1.02) mg/dL Est Cr Clr Drug Dosing 65.60 mL/min Estimated GFR (MDRD) > 60 (>60) mL/min BUN/Creatinine Ratio 15.6 (14-18) Glucose 156 H (74-106) mg/dL POC Glucose 159 H (70-105) mg/dL Calcium 7.8 L (8.5-10.1) mg/dL Phosphorus 2.0 L (2.6-4.7) mg/dL Magnesium 2.6 H (1.8-2.4) mg/dl Triglycerides (<150) mg/dL Vitamin B12 (193-986) pg/ml Ketones 1.395 (0.0-0.3) mM 05/01/20 05/01/20 05/01/20 Range/Units 10:57 11:56 13:15 WBC (3.98-10.04) K/mm3 RBC (3.98-5.22) M/mm3 Hgb (11.2-15.7) gm/dl Hct (34.1-44.9) % MCV (79.4-94.8) fl MCH (25.6-32.2) pg MCHC (32.2-35.5) g/dl RDW Std Deviation (36.4-46.3) fL Plt Count (182-369) K/mm3 MPV (9.4-12.3) fl Neut % (Auto) (34.0-71.1) % Lymph % (Auto) (19.3-51.7) % [place] % (Auto) (4.7-12.5) % Eos % (Auto) (0.7-5.8) Baso % (Auto) (0.1-1.2) % Neut # (Auto) (1.56-6.13) K/mm3 Lymph # (Auto) (1.18-3.74) K/mm3 [place] # (Auto) (0.24-0.36) K/mm3 Eos # (Auto) (0.04-0.36) K/mm3 Baso # (Auto) (0.01-0.08) K/mm3 Puncture Site ABG pH (7.35-7.45) ABG pCO2 (35.0-45.0) mmHg ABG pO2 (80.0-100.0) mmHg ABG HCO3 (22.0-26.0) meq/L ABG O2 Saturation (96.0-97.0) % ABG Base Excess (-2-2.0) Darrell Test A-a Gradient mmHg O2 Delivery Device Oxygen Flow Rate FiO2 (21.00-100.00) % Sodium (136-145) mEq/L Potassium (3.5-5.1) mEq/L Chloride (98-107) mEq/L Carbon Dioxide (21-32) mEq/L Anion Gap (5-15) BUN (7-18) mg/dL Creatinine (0.55-1.02) mg/dL Est Cr Clr Drug Dosing mL/min Estimated GFR (MDRD) (>60) mL/min BUN/Creatinine Ratio (14-18) Glucose (74-106) mg/dL POC Glucose 157 H 123 H 87 (70-105) mg/dL Calcium (8.5-10.1) mg/dL Phosphorus (2.6-4.7) mg/dL Magnesium (1.8-2.4) mg/dl Triglycerides (<150) mg/dL Vitamin B12 (193-986) pg/ml Ketones (0.0-0.3) mM 05/01/20 05/01/20 05/01/20 Range/Units 14:08 17:04 18:15 WBC (3.98-10.04) K/mm3 RBC (3.98-5.22) M/mm3 Hgb (11.2-15.7) gm/dl Hct (34.1-44.9) % MCV (79.4-94.8) fl MCH (25.6-32.2) pg MCHC (32.2-35.5) g/dl RDW Std Deviation (36.4-46.3) fL Plt Count (182-369) K/mm3 MPV (9.4-12.3) fl Neut % (Auto) (34.0-71.1) % Lymph % (Auto) (19.3-51.7) % [place] % (Auto) (4.7-12.5) % Eos % (Auto) (0.7-5.8) Baso % (Auto) (0.1-1.2) % Neut # (Auto) (1.56-6.13) K/mm3 Lymph # (Auto) (1.18-3.74) K/mm3 [place] # (Auto) (0.24-0.36) K/mm3 Eos # (Auto) (0.04-0.36) K/mm3 Baso # (Auto) (0.01-0.08) K/mm3 Puncture Site ABG pH (7.35-7.45) ABG pCO2 (35.0-45.0) mmHg ABG pO2 (80.0-100.0) mmHg ABG HCO3 (22.0-26.0) meq/L ABG O2 Saturation (96.0-97.0) % ABG Base Excess (-2-2.0) Darrell Test A-a Gradient mmHg O2 Delivery Device Oxygen Flow Rate FiO2 (21.00-100.00) % Sodium (136-145) mEq/L Potassium (3.5-5.1) mEq/L Chloride (98-107) mEq/L Carbon Dioxide (21-32) mEq/L Anion Gap (5-15) BUN (7-18) mg/dL Creatinine (0.55-1.02) mg/dL Est Cr Clr Drug Dosing mL/min Estimated GFR (MDRD) (>60) mL/min BUN/Creatinine Ratio (14-18) Glucose (74-106) mg/dL POC Glucose 108 H 191 H (70-105) mg/dL Calcium (8.5-10.1) mg/dL Phosphorus (2.6-4.7) mg/dL Magnesium (1.8-2.4) mg/dl Triglycerides (<150) mg/dL Vitamin B12 (193-986) pg/ml Ketones 3.43 (0.0-0.3) mM 05/01/20 05/02/20 05/02/20 Range/Units 20:18 02:05 04:56 WBC 9.49 (3.98-10.04) K/mm3 RBC 2.35 L (3.98-5.22) M/mm3 Hgb 6.8 L* (11.2-15.7) gm/dl Hct 22.0 L (34.1-44.9) % MCV 93.6 (79.4-94.8) fl MCH 28.9 (25.6-32.2) pg MCHC 30.9 L (32.2-35.5) g/dl RDW Std Deviation 44.8 (36.4-46.3) fL Plt Count 363 (182-369) K/mm3 MPV 9.0 L (9.4-12.3) fl Neut % (Auto) 65.8 (34.0-71.1) % Lymph % (Auto) 23.7 (19.3-51.7) % [place] % (Auto) 9.6 (4.7-12.5) % Eos % (Auto) 0.3 L (0.7-5.8) Baso % (Auto) 0.1 (0.1-1.2) % Neut # (Auto) 6.24 H (1.56-6.13) K/mm3 Lymph # (Auto) 2.25 (1.18-3.74) K/mm3 [place] # (Auto) 0.91 H (0.24-0.36) K/mm3 Eos # (Auto) 0.03 L (0.04-0.36) K/mm3 Baso # (Auto) 0.01 (0.01-0.08) K/mm3 Puncture Site ABG pH (7.35-7.45) ABG pCO2 (35.0-45.0) mmHg ABG pO2 (80.0-100.0) mmHg ABG HCO3 (22.0-26.0) meq/L ABG O2 Saturation (96.0-97.0) % ABG Base Excess (-2-2.0) Darrell Test A-a Gradient mmHg O2 Delivery Device Oxygen Flow Rate FiO2 (21.00-100.00) % Sodium (136-145) mEq/L Potassium (3.5-5.1) mEq/L Chloride (98-107) mEq/L Carbon Dioxide (21-32) mEq/L Anion Gap (5-15) BUN (7-18) mg/dL Creatinine (0.55-1.02) mg/dL Est Cr Clr Drug Dosing mL/min Estimated GFR (MDRD) (>60) mL/min BUN/Creatinine Ratio (14-18) Glucose (74-106) mg/dL POC Glucose 200 H (70-105) mg/dL Calcium (8.5-10.1) mg/dL Phosphorus (2.6-4.7) mg/dL Magnesium (1.8-2.4) mg/dl Triglycerides (<150) mg/dL Vitamin B12 (193-986) pg/ml Ketones 3.36 (0.0-0.3) mM 05/02/20 05/02/20 05/02/20 Range/Units 04:56 04:56 04:56 WBC (3.98-10.04) K/mm3 RBC (3.98-5.22) M/mm3 Hgb (11.2-15.7) gm/dl Hct (34.1-44.9) % MCV (79.4-94.8) fl MCH (25.6-32.2) pg MCHC (32.2-35.5) g/dl RDW Std Deviation (36.4-46.3) fL Plt Count (182-369) K/mm3 MPV (9.4-12.3) fl Neut % (Auto) (34.0-71.1) % Lymph % (Auto) (19.3-51.7) % [place] % (Auto) (4.7-12.5) % Eos % (Auto) (0.7-5.8) Baso % (Auto) (0.1-1.2) % Neut # (Auto) (1.56-6.13) K/mm3 Lymph # (Auto) (1.18-3.74) K/mm3 [place] # (Auto) (0.24-0.36) K/mm3 Eos # (Auto) (0.04-0.36) K/mm3 Baso # (Auto) (0.01-0.08) K/mm3 Puncture Site ABG pH (7.35-7.45) ABG pCO2 (35.0-45.0) mmHg ABG pO2 (80.0-100.0) mmHg ABG HCO3 (22.0-26.0) meq/L ABG O2 Saturation (96.0-97.0) % ABG Base Excess (-2-2.0) Darrell Test A-a Gradient mmHg O2 Delivery Device Oxygen Flow Rate FiO2 (21.00-100.00) % Sodium 134 L (136-145) mEq/L Potassium 4.8 (3.5-5.1) mEq/L Chloride 100 (98-107) mEq/L Carbon Dioxide 25 (21-32) mEq/L Anion Gap 13.8 (5-15) BUN 10 (7-18) mg/dL Creatinine 0.8 (0.55-1.02) mg/dL Est Cr Clr Drug Dosing 76.61 mL/min Estimated GFR (MDRD) > 60 (>60) mL/min BUN/Creatinine Ratio 12.5 L (14-18) Glucose 337 H (74-106) mg/dL POC Glucose (70-105) mg/dL Calcium 7.3 L (8.5-10.1) mg/dL Phosphorus 3.0 (2.6-4.7) mg/dL Magnesium 2.3 (1.8-2.4) mg/dl Triglycerides 74 (<150) mg/dL Vitamin B12 631 (193-986) pg/ml Ketones (0.0-0.3) mM Med Orders - Current: Current Medications Enoxaparin Sodium (Lovenox) 40 mg SUBCUT DAILY [facility] Last Admin: 05/01/20 08:07 Dose: 40 mg Lactated Ringer's (Ringers, Lactated) 1,000 mls @ 75 mls/hr IV ASDIRECTED [facility] Last Admin: 05/01/20 21:52 Dose: 75 mls/hr Insulin Glargine (Lantus) 15 unit SUBCUT DAILY [facility] Insulin Human Lispro (Humalog) 0 unit SUBCUT QIDACANDBED [facility]; Protocol Miscellaneous Information (Remove Patch) 1 ea TRDERM DAILY [facility] Nicotine (Habitrol) 21 mg TRDERM DAILY [facility] Last Admin: 05/01/20 08:07 Dose: 21 mg Ondansetron HCl (Zofran) 4 mg IV Q6H PRN PRN Reason: Nausea/Vomiting Last Admin: 05/01/20 20:15 Dose: 4 mg Pantoprazole Sodium (Protonix) 40 mg PO BID [facility] Last Admin: 05/01/20 20:16 Dose: 40 mg Buprenorp-Nalox 8-2 (Mg Sl) 0 each .XX DAILY [facility] Last Admin: 05/01/20 19:02 Dose: 1 each Discontinued Medications Fentanyl (Sublimaze) 50 mcg IVPUSH ONETIME ONE Stop: 05/01/20 00:59 Last Admin: 05/01/20 01:03 Dose: 50 mcg Fentanyl (Sublimaze) 50 mcg IVPUSH ONETIME ONE Stop: 05/01/20 01:59 Last Admin: 05/01/20 02:03 Dose: 50 mcg Sodium Chloride (Normal Saline) 1,000 mls @ 999 mls/hr IV ONETIME ONE Stop: 05/01/20 00:48 Last Admin: 05/01/20 00:27 Dose: 999 mls/hr Insulin Human Regular 100 unit (/ Sodium Chloride) 100 mls @ 4.76 mls/hr IV TITRATE [facility]; Protocol Stop: 05/01/20 13:30 Last Titration: 05/01/20 13:18 Dose: 0 units/kg/hr, 0 mls/hr Sodium Chloride (Normal Saline) Confirm Administered Dose 100 mls @ as directed .ROUTE [facility] ONE Stop: 05/01/20 01:27 Last Admin: 05/01/20 01:41 Dose: Not Given Sodium Chloride (Normal Saline) Confirm Administered Dose 1,000 mls @ as directed .ROUTE .[facility] ONE Stop: 05/01/20 01:36 Last Admin: 05/01/20 01:41 Dose: Not Given Sodium Chloride (Normal Saline) 1,000 mls @ 999 mls/hr IV ONETIME ONE Stop: 05/01/20 02:41 Last Admin: 05/01/20 01:53 Dose: 999 mls/hr Dextrose/Water (Dextrose 10% In Water) 1,000 mls @ 40 mls/hr IV ASDIRECTED [facility] Stop: 05/02/20 10:00 Last Admin: 05/01/20 09:04 Dose: 40 mls/hr Lactated Ringer's (Ringers, Lactated) 1,000 mls @ 150 mls/hr IV ASDIRECTED [facility] Last Infusion: 05/01/20 14:00 Dose: 75 mls/hr Lactated Ringer's (Ringers, Lactated) 1,000 mls @ 999 mls/hr IV ASDIRECTED [facility] Stop: 05/02/20 03:16 Last Admin: 05/01/20 04:12 Dose: 999 mls/hr Piperacillin Sod/Tazobactam (Sod 4.5 gm/ Sodium Chloride) 100 mls @ 200 mls/hr IV ONETIME ONE Stop: 05/01/20 03:59 Last Admin: 05/01/20 03:45 Dose: 200 mls/hr Piperacillin Sod/Tazobactam (Sod 4.5 gm/ Sodium Chloride) 100 mls @ 25 mls/hr IV Q8H [facility] Magnesium Sulfate 4 gm/ Premix 50 mls @ 12.5 mls/hr IV ONETIME ONE Stop: 05/01/20 08:26 Last Admin: 05/01/20 04:59 Dose: Not Given Potassium Phosphate 30 mmole/ (Sodium Chloride) 510 mls @ 102 mls/hr IV ONETIME ONE Stop: 05/01/20 17:59 Last Admin: 05/01/20 13:17 Dose: 102 mls/hr Potassium Chloride 10 meq/ (Premix) 100 mls @ 100 mls/hr IV Q1H [facility] Stop: 05/01/20 12:59 Last Admin: 05/01/20 11:53 Dose: 100 mls/hr Magnesium Sulfate 4 gm/ Premix 50 mls @ 12.5 mls/hr IV ONETIME ONE Stop: 05/01/20 14:59 Last Admin: 05/01/20 10:58 Dose: 12.5 mls/hr Insulin Glargine (Lantus) 54 unit SUBCUT DAILY [facility] Last Admin: 05/01/20 13:25 Dose: Not Given Insulin Glargine (Lantus) 20 unit SUBCUT DAILY [facility] Insulin Human Lispro (Humalog) 9 unit SUBCUT TIDMEALS [facility] Insulin Human Lispro (Humalog) 4 unit SUBCUT TIDMEALS [facility] Last Admin: 05/01/20 17:11 Dose: 4 units Insulin Human Regular (Humulin R) 4 unit IV ONETIME ONE Stop: 04/30/20 23:49 Last Admin: 05/01/20 00:28 Dose: 4 unit Insulin Human Regular (Humulin R) 10 unit IV ONETIME ONE Stop: 05/01/20 03:57 Last Admin: 05/01/20 04:08 Dose: 10 unit Morphine Sulfate (Morphine) 1 mg IVPUSH ONETIME ONE Stop: 05/01/20 03:13 Last Admin: 05/01/20 03:21 Dose: 1 mg Ondansetron HCl (Zofran) 4 mg IVPUSH ONETIME ONE Stop: 04/30/20 23:56 Last Admin: 05/01/20 00:27 Dose: 4 mg - Exam Quality Assessment: Central Line/PICC, Urine Catheter. No: Supplemental Oxygen General: Alert, Oriented HEENT: Pupils Equal, Mucous Membr. Moist/[place] Neck: Supple Lungs: Clear to Auscultation, Normal Respiratory Effort Cardiovascular: Regular Rate, Regular Rhythm GI/Abdominal Exam: Normal Bowel Sounds, Soft, No Distention, Tender (Diffuse tenderness worse in the right epigastrium). No: Guarding, Rigid, Rebound Extremities: Normal Inspection, Normal Range of Motion, Non-Tender, No Pedal Edema, Normal Capillary Refill Skin: Warm, Dry, Intact Neurological: No New Focal Deficit Psy/Mental Status: Alert, Normal Affect, Normal Mood Sepsis Event Note - Evaluation Sepsis Screening Result: No Definite Risk - Focused Exam Vital Signs: Vital Signs Temp Pulse Resp BP BP Pulse Ox 05/02/20 04:01 84 110/64 98 05/02/20 04:00 98.6 F 84 15 110/64 98 05/02/20 03:45 83 6 L 97 05/02/20 03:30 82 9 L 99 05/02/20 03:15 87 14 100 05/02/20 03:00 85 13 100 05/02/20 02:45 83 13 100 05/02/20 02:30 82 9 L 100 05/02/20 02:15 81 99 05/02/20 02:00 79 13 99 05/02/20 01:45 79 6 L 97 05/02/20 01:30 93 18 99 05/02/20 01:15 90 11 L 100 05/02/20 01:00 84 0 L 99 05/02/20 00:45 85 12 100 05/02/20 00:30 82 13 100 05/02/20 00:15 85 9 L 100 05/02/20 00:01 86 11 L 89/48 L 100 05/02/20 00:00 98.6 F 83 12 89/48 L 99 05/01/20 23:45 87 99 05/01/20 23:30 86 11 L 100 05/01/20 23:15 87 10 L 99 05/01/20 23:00 87 12 100 05/01/20 22:45 92 8 L 100 05/01/20 22:30 94 13 100 05/01/20 22:15 87 7 L 100 05/01/20 22:04 78 77 L 05/01/20 21:45 90 24 H 100 05/01/20 21:30 89 10 L 100 05/01/20 21:15 87 11 L 100 05/01/20 21:00 94 12 100 05/01/20 20:45 88 14 100 05/01/20 20:30 88 100 05/01/20 20:15 97 13 100 05/01/20 20:01 93 100 05/01/20 20:00 98.5 F 88 10 L 99/68 99/68 100 05/01/20 19:59 90 0 L 100 Date Exam was Performed: 05/02/20 Time Exam was Performed: 11:22 - Problem List Review Problem List Initiated/Reviewed/Updated: Yes - My Orders Last 24 Hours: My Active Orders 05/02/20 07:36 Insulin Lispro [HumaLOG] See Protocol SUBCUT QIDACANDBED 05/02/20 07:46 Notify Provider [RC] ASDIRECTED RED BLOOD CELLS LP [BBK] Routine TYPE AND SCREEN [BBK] Routine Transfuse Red Blood Cells [COMM] Routine Transfuse Red Blood Cells [COMM] Routine Transfuse Red Blood Cells [COMM] Routine 05/02/20 07:49 DC Chao Catheter [Urinary Catheter Removal] [RC] Per Unit Routine 05/02/20 09:00 Insulin Glarg,Human.Rec.Analog [LantUS] 15 unit SUBCUT DAILY 05/02/20 17:00 HEMOGLOBIN/HEMATOCRIT,HH [HEME] Routine - Plan Plan:: ASSESSMENT - Admission for DKA, discharged with stable glycemi left ear 9 - When she arrived at home glucose started trending up a couple of hours later - Reports numbers in the upper 200s and 300s - Associated intractable nausea and vomiting - Accu-Chek today showed level greater than 400 - Labs - Glucose 646 - WBC 16.08, hemoglobin 10.3, platelets 600 - Sodium 133, corrects with glucose adjustment, chloride of 92, potassium 4.6 , CO2 16 - Anion gap 30 with ketones of 12.47 - Lactate 7.4, multifactorial - GFR for 43 - ABGs 7.37/20 4.1 /35/98 - Albumin 2.8 - Qualifies for severe sepsis with tachycardia and elevated white blood cell count as well as elevated lactic acid, her fluid bolus is 1700 - Patient has drug-seeking behavior for which a urine drug screen will be performed - Poor peripheral intravenous access for which central line was placed Day 1 Repeat UA negative - NO SEPSIS AND NOT UTI Sodium WNL Phosphorous 2.0 Magnesium 2.6 - elevated 2/2 oversupplementation Repeat lactic acid WNL - elevated due to DKA process and not sepsis Gap has closed ADA diet started Glucose range 422-87 UDS negative Day 2 Phosphorus 3.0, magnesium 2.3 Anion gap closed Ketones increased to above 3 overnight. A.m. blood sugar 337. 430 Start morning Lantus 15 units Start sliding scale insulin Start prandial insulin when taking more consistent oral intake DC urinary catheter Transfused 2 units packed red blood cells Scheduled for upper endoscopy on May 19 with gastroenterology in [place]. Patient is concerned that she may not pass the preop physical now. There is a question about primary care status. 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 Discharge is highly likely in the next 1-2 days once glucose is controlled Contacted by patients PCP - Fanta Canseco PA-C. She reports she will be passing patient care to Dr. Medrano, Internal Medicine from this point forward as patient is very complicated. Patients upcoming appointment with Cherri was canceled and instead changed to Dr. Medrano.
[2020-05-02] MEDS: Pantoprazole 40 MG Tab.CR PO SCH ×2 (08:35→20:12)
[2020-05-02] MEDS: Enoxaparin 40 MG/0.4 ML Syringe SUBCUT SCH (08:36)
[2020-05-02] MEDS: Nicotine 21 MG/24 Hr Patch TRDERM SCH (08:37)
[2020-05-02] MEDS: Insulin Lispro 100 Units/ML 3 ML Vial SUBCUT SCH ×6 (08:58→22:10)
[2020-05-02] MEDS ORDERED: Insulin Glarg,Human.Rec.Analog 100 Unit/ML SUBCUT SCH (09:00)
[2020-05-02] MEDS: Ondansetron 4 MG/2 ML SDV IV PRN (09:05)
[2020-05-02] MEDS: NALOXONE SCH ×2 (10:34→13:25)
[2020-05-02] MEDS: BUPRENORPHINE SCH ×2 (10:34→13:25)
[2020-05-02] MEDS ORDERED: Sodium Chloride 0.9% 250 ML ONE (10:43)
[2020-05-02] MEDS ORDERED: Sodium Chloride 0.9% 250 ML IV SCH (10:45)
[2020-05-02] MEDS ORDERED: Fluconazole 150 MG Tab PO ONE (15:19)
[2020-05-02] MEDS: cefTRIAXone 1 GM in Sodium Chloride 0.9% 100 ML IV SCH (16:19)
[2020-05-03] MEDS: Ondansetron 4 MG/2 ML SDV IV PRN ×2 (00:08→08:21)
[2020-05-03] MEDS: Insulin Lispro 100 Units/ML 3 ML Vial SUBCUT SCH ×2 (06:30→11:05)
[2020-05-03] MEDS: BUPRENORPHINE SCH (08:22)
[2020-05-03] MEDS: NALOXONE SCH (08:22)
[2020-05-03] MEDS: Enoxaparin 40 MG/0.4 ML Syringe SUBCUT SCH (08:22)
[2020-05-03] MEDS: Pantoprazole 40 MG Tab.CR PO SCH (08:22)
[2020-05-03] MEDS: Nicotine 21 MG/24 Hr Patch TRDERM SCH (08:22)
[2020-05-03] MEDS ORDERED: Insulin Glarg,Human.Rec.Analog 100 Unit/ML SUBCUT SCH (09:00)
[2020-05-03] MEDS: cefTRIAXone 1 GM in Sodium Chloride 0.9% 100 ML IV SCH (11:34)
--- NOTE | 2020-05-03 11:54 | PCM.DCSUM1 ---
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 Patient was discharged 4 days ago after an admission for diabetic ketoacidosis that required her to be placed on insulin drip admitted to the ICU and discharged home with adjustment of her medications. Patient notes that right after discharge when she arrived home her glucose levels have not been controlled, with levels in the upper 200s and 300s. Today her Accu-Chek read high for which she decided to come to the emergency department. Addendum entered and electronically signed by Rachel Hodgson MD 05/01/20 08:53: UPDATE ON SEPSIS DOCUMENTATION UA reported after information was obtained and patient does not have a UTI, this means she does not qualify for sepsis The elevated lactic acid in this case is secondary to hyperviscosity and DKA Brief History: Diabetic ketoacidosis. High anion gap metabolic acidosis. Nausea and vomiting. Hyponatremia. Type I diabetes mellitus. Start Zosyn. Trend lactic acid. IV fluid bolus of 2 L, maintenance as per DKA protocol. Labs every 4 hours, ketones every 8 hours. 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 Acute kidney injury. Monitor urine output. Avoid nephrotoxic medications. Renally dose medications. Repeat labs as needed. Opioid dependence in controlled environment. Restart home medications. Normocytic normochromic anemia. Anemia work-up. Hypoalbuminemia. Cachectic. Dietary consult. Nutritional supplements with meals Diagnosis: Stroke: No - Discharge Data Discharge Date: 05/03/20 Discharge Disposition: Home, Self-Care 01 Condition: Good - Referral to Home Health Primary Care Physician: PCP None - Patient Summary/Data Consults: Consultations 05/01/20 02:12 Respiratory Care Assess and Treatment [CONS] Routine 05/02/20 12:00 Consult to Diabetic Nurse Specialist [CONS] Routine Hospital Course: Patient was admitted and started on DKA protocol. Right internal jugular central venous access triple-lumen catheter was placed and urinary catheter. After anion gap was closed and patient was able to take orally she was switched to subcu long-acting and short acting insulin. Urinary catheter was removed and patient continued to complain of dysuria so a UA was performed. On the UA there were 20-30 WBCs, few bacteria, and moderate yeast. She was given 1 dose of Diflucan 150 mg and started on Rocephin. On day of discharge patient will be discharged on Keflex 500 mg 4 times daily until culture and sensitivities return. Patient will need to follow-up with her primary care provider Dr. 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 She does have an appointment upcoming with GI. Patient did receive 2 units packed red blood cells after she had a drop in her hemoglobin to 6.8. This is likely multifactorial including upper GI loss from a likely Sangita-Garg type tear from vomiting, hemodilution, anemia of chronic disease, and multiple IV draws after being hospitalized for DKA twice in 2 weeks. - Patient Instructions Diet: Diabetic Diet Activity: As Tolerated Driving: May Drive Today Showering/Bathing: May Shower Other/Special Instructions: Keep follow up appointments. - Discharge Plan *PRESCRIPTION DRUG MONITORING PROGRAM REVIEWED*: No *COPY OF PRESCRIPTION DRUG MONITORING REPORT IN PATIENT TANNER: No Prescriptions/Med Rec: cephALEXin [Keflex] 500 mg PO QID #20 cap Home Medications: Home Meds Buprenorphine HCl/Naloxone HCl [Buprenorp-Nalox 8-2 mg Sl Film] 20 mg SL DAILY 02/29/20 [History] Albuterol [Proair HFA] 2 puff INH Q6HR PRN 04/25/20 [History] Fluticasone Propionate [Flovent HFA] 44 mcg INH Q12HR 04/25/20 [History] Promethazine [Phenergan] 25 mg PO Q4H PRN 04/25/20 [History] Varenicline Tartrate [Chantix] 1 each PO ASDIRECTED 04/25/20 [History] Insulin Aspart [NovoLOG] 2 unit SUBCUT TIDPC #2 pen 04/26/20 [Rx] Insulin Degludec [Tresiba] 6 unit SQ DAILY #2 vial 04/26/20 [Rx] Insulin Glarg,Human.Rec.Analog [Lantus] 10 unit SUBCUT DAILY #15 ml 04/26/20 [Rx ] Pantoprazole [ProTONIX] 40 mg PO BID #60 tab.cr 04/26/20 [Rx] Patient's Own Medication [Ptom] 0 each TOP TID each 04/26/20 [Rx] cephALEXin [Keflex] 500 mg PO QID #20 cap 05/03/20 [Rx] Oxygen Therapy Mode: Room Air Patient Handouts: Type 1 Diabetes Mellitus, Self Care, Adult, [id number], Blood Glucose Monitoring, Adult, Steps to Quit Smoking Referrals: Suzanne Rios RN [Registered Nurse] - 05/09/20 9:00 am ([facility] and for further education on stop smoking. If unable or need to reschedule this appt. please call [phone] or [phone]. Thank-you) Saud Robin MD [Physician] - 05/11/20 9:30 am - Discharge Summary/Plan Comment DC Time >30 min.: Yes Discharge Summary/Plan Comment: Discharged home in good condition. Contact primary care provider and power transformer repair supervisor. Restart home insulin, but titrate up insulin to improve control. - General Info Date of Service: 05/03/20 Admission Dx/Problem (Free Text: Admission Diagnosis/Problem Admission Diagnosis/Problem Diabetic ketoacidosis Subjective Update: Patient states that she is feeling much better today. Still no bowel movement. No vomiting since admission. Functional Status: Reports: Pain Controlled - Review of Systems General: Reports: No Symptoms HEENT: Reports: No Symptoms Pulmonary: Reports: No Symptoms Cardiovascular: Reports: No Symptoms Gastrointestinal: Reports: Abdominal Pain 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: Reports: Dysuria Musculoskeletal: Reports: No Symptoms - Patient Data Vitals - Most Recent: Last Vital Signs Temp 98.6 F 05/03/20 08:00 Pulse 66 05/03/20 06:00 Resp 16 05/03/20 08:00 BP 142/99 H 05/03/20 08:00 Pulse Ox 96 05/03/20 08:00 Weight - Most Recent: 125 lb I&O - Last 24 hours: Intake & Output 05/02/20 05/03/20 05/03/20 22:59 06:59 14:59 Intake Total 2677 510 Output Total 1100 700 Balance 1577 -190 Lab Results - Last 24 hrs: Laboratory Results - last 24 hr 05/02/20 05/02/20 05/02/20 Range/Units 04:56 13:10 14:15 WBC (3.98-10.04) K/mm3 RBC (3.98-5.22) M/mm3 Hgb (11.2-15.7) gm/dl Hct (34.1-44.9) % MCV (79.4-94.8) fl MCH (25.6-32.2) pg MCHC (32.2-35.5) g/dl RDW Std Deviation (36.4-46.3) fL Plt Count (182-369) K/mm3 MPV (9.4-12.3) fl Neut % (Auto) (34.0-71.1) % Lymph % (Auto) (19.3-51.7) % Gila % (Auto) (4.7-12.5) % Eos % (Auto) (0.7-5.8) Baso % (Auto) (0.1-1.2) % Neut # (Auto) (1.56-6.13) K/mm3 Lymph # (Auto) (1.18-3.74) K/mm3 Gila # (Auto) (0.24-0.36) K/mm3 Eos # (Auto) (0.04-0.36) K/mm3 Baso # (Auto) (0.01-0.08) K/mm3 Sodium (136-145) mEq/L Potassium (3.5-5.1) mEq/L Chloride (98-107) mEq/L Carbon Dioxide (21-32) mEq/L Anion Gap (5-15) BUN (7-18) mg/dL Creatinine (0.55-1.02) mg/dL Est Cr Clr Drug Dosing mL/min Estimated GFR (MDRD) (>60) mL/min BUN/Creatinine Ratio (14-18) Glucose (74-106) mg/dL POC Glucose 284 H (70-105) mg/dL Calcium (8.5-10.1) mg/dL Magnesium (1.8-2.4) mg/dl Total Bilirubin (0.2-1.0) mg/dL AST (15-37) U/L ALT (14-59) U/L Alkaline Phosphatase (46-116) U/L Total Protein (6.4-8.2) g/dl Albumin (3.4-5.0) g/dl Globulin gm/dL Albumin/Globulin Ratio (1-2) Urine Color Yellow (Yellow) Urine Appearance Slt cloudy H (Clear) Urine pH 6.0 (5.0-8.0) Ur Specific [place] 1.020 (1.005-1.030) Urine Protein Negative (Negative) Urine Glucose (UA) 2+ H (Negative) Urine Ketones 3+ H (Negative) Urine Occult Blood 1+ H (Negative) Urine Nitrite Negative (Negative) Urine Bilirubin 1+ H (Negative) Urine Urobilinogen 0.2 (0.2-1.0) Ur Leukocyte Esterase 1+ H (Negative) Urine RBC 5-10 H (0-5) /hpf Urine WBC 20-30 H (0-5) /hpf Ur Epithelial Cells 0-5 (0-5) /hpf Urine Bacteria Few (FEW) /hpf Urine Mucus Not seen (FEW) /hpf Urine Yeast Moderate H (NOT SEEN) Ketones (0.0-0.3) mM Blood Type O POSITIVE Gel Antibody Screen Negative Crossmatch See Detail 05/02/20 05/02/20 05/02/20 Range/Units 16:05 17:00 18:01 WBC (3.98-10.04) K/mm3 RBC (3.98-5.22) M/mm3 Hgb 10.4 L D (11.2-15.7) gm/dl Hct 31.1 L (34.1-44.9) % MCV (79.4-94.8) fl MCH (25.6-32.2) pg MCHC (32.2-35.5) g/dl RDW Std Deviation (36.4-46.3) fL Plt Count (182-369) K/mm3 MPV (9.4-12.3) fl Neut % (Auto) (34.0-71.1) % Lymph % (Auto) (19.3-51.7) % Gila % (Auto) (4.7-12.5) % Eos % (Auto) (0.7-5.8) Baso % (Auto) (0.1-1.2) % Neut # (Auto) (1.56-6.13) K/mm3 Lymph # (Auto) (1.18-3.74) K/mm3 Gila # (Auto) (0.24-0.36) K/mm3 Eos # (Auto) (0.04-0.36) K/mm3 Baso # (Auto) (0.01-0.08) K/mm3 Sodium (136-145) mEq/L Potassium (3.5-5.1) mEq/L Chloride (98-107) mEq/L Carbon Dioxide (21-32) mEq/L Anion Gap (5-15) BUN (7-18) mg/dL Creatinine (0.55-1.02) mg/dL Est Cr Clr Drug Dosing mL/min Estimated GFR (MDRD) (>60) mL/min BUN/Creatinine Ratio (14-18) Glucose (74-106) mg/dL POC Glucose 224 H 154 H (70-105) mg/dL Calcium (8.5-10.1) mg/dL Magnesium (1.8-2.4) mg/dl Total Bilirubin (0.2-1.0) mg/dL AST (15-37) U/L ALT (14-59) U/L Alkaline Phosphatase (46-116) U/L Total Protein (6.4-8.2) g/dl Albumin (3.4-5.0) g/dl Globulin gm/dL Albumin/Globulin Ratio (1-2) Urine Color (Yellow) Urine Appearance (Clear) Urine pH (5.0-8.0) Ur Specific [place] (1.005-1.030) Urine Protein (Negative) Urine Glucose (UA) (Negative) Urine Ketones (Negative) Urine Occult Blood (Negative) Urine Nitrite (Negative) Urine Bilirubin (Negative) Urine Urobilinogen (0.2-1.0) Ur Leukocyte Esterase (Negative) Urine RBC (0-5) /hpf Urine WBC (0-5) /hpf Ur Epithelial Cells (0-5) /hpf Urine Bacteria (FEW) /hpf Urine Mucus (FEW) /hpf Urine Yeast (NOT SEEN) Ketones (0.0-0.3) mM Blood Type Gel Antibody Screen Crossmatch 05/02/20 05/02/20 05/03/20 Range/Units 20:06 22:02 00:03 WBC (3.98-10.04) K/mm3 RBC (3.98-5.22) M/mm3 Hgb (11.2-15.7) gm/dl Hct (34.1-44.9) % MCV (79.4-94.8) fl MCH (25.6-32.2) pg MCHC (32.2-35.5) g/dl RDW Std Deviation (36.4-46.3) fL Plt Count (182-369) K/mm3 MPV (9.4-12.3) fl Neut % (Auto) (34.0-71.1) % Lymph % (Auto) (19.3-51.7) % Gila % (Auto) (4.7-12.5) % Eos % (Auto) (0.7-5.8) Baso % (Auto) (0.1-1.2) % Neut # (Auto) (1.56-6.13) K/mm3 Lymph # (Auto) (1.18-3.74) K/mm3 Gila # (Auto) (0.24-0.36) K/mm3 Eos # (Auto) (0.04-0.36) K/mm3 Baso # (Auto) (0.01-0.08) K/mm3 Sodium (136-145) mEq/L Potassium (3.5-5.1) mEq/L Chloride (98-107) mEq/L Carbon Dioxide (21-32) mEq/L Anion Gap (5-15) BUN (7-18) mg/dL Creatinine (0.55-1.02) mg/dL Est Cr Clr Drug Dosing mL/min Estimated GFR (MDRD) (>60) mL/min BUN/Creatinine Ratio (14-18) Glucose (74-106) mg/dL POC Glucose 136 H 125 H 111 H (70-105) mg/dL Calcium (8.5-10.1) mg/dL Magnesium (1.8-2.4) mg/dl Total Bilirubin (0.2-1.0) mg/dL AST (15-37) U/L ALT (14-59) U/L Alkaline Phosphatase (46-116) U/L Total Protein (6.4-8.2) g/dl Albumin (3.4-5.0) g/dl Globulin gm/dL Albumin/Globulin Ratio (1-2) Urine Color (Yellow) Urine Appearance (Clear) Urine pH (5.0-8.0) Ur Specific [place] (1.005-1.030) Urine Protein (Negative) Urine Glucose (UA) (Negative) Urine Ketones (Negative) Urine Occult Blood (Negative) Urine Nitrite (Negative) Urine Bilirubin (Negative) Urine Urobilinogen (0.2-1.0) Ur Leukocyte Esterase (Negative) Urine RBC (0-5) /hpf Urine WBC (0-5) /hpf Ur Epithelial Cells (0-5) /hpf Urine Bacteria (FEW) /hpf Urine Mucus (FEW) /hpf Urine Yeast (NOT SEEN) Ketones (0.0-0.3) mM Blood Type Gel Antibody Screen Crossmatch 05/03/20 05/03/20 05/03/20 Range/Units 02:02 04:03 05:05 WBC 7.42 (3.98-10.04) K/mm3 RBC 3.45 L (3.98-5.22) M/mm3 Hgb 10.2 L (11.2-15.7) gm/dl Hct 31.4 L (34.1-44.9) % MCV 91.0 (79.4-94.8) fl MCH 29.6 (25.6-32.2) pg MCHC 32.5 (32.2-35.5) g/dl RDW Std Deviation 46.1 (36.4-46.3) fL Plt Count 318 (182-369) K/mm3 MPV 8.7 L (9.4-12.3) fl Neut % (Auto) 55.5 (34.0-71.1) % Lymph % (Auto) 34.8 (19.3-51.7) % Gila % (Auto) 8.5 (4.7-12.5) % Eos % (Auto) 0.8 (0.7-5.8) Baso % (Auto) 0.1 (0.1-1.2) % Neut # (Auto) 4.12 (1.56-6.13) K/mm3 Lymph # (Auto) 2.58 (1.18-3.74) K/mm3 Gila # (Auto) 0.63 H (0.24-0.36) K/mm3 Eos # (Auto) 0.06 (0.04-0.36) K/mm3 Baso # (Auto) 0.01 (0.01-0.08) K/mm3 Sodium (136-145) mEq/L Potassium (3.5-5.1) mEq/L Chloride (98-107) mEq/L Carbon Dioxide (21-32) mEq/L Anion Gap (5-15) BUN (7-18) mg/dL Creatinine (0.55-1.02) mg/dL Est Cr Clr Drug Dosing mL/min Estimated GFR (MDRD) (>60) mL/min BUN/Creatinine Ratio (14-18) Glucose (74-106) mg/dL POC Glucose 145 H 108 H (70-105) mg/dL Calcium (8.5-10.1) mg/dL Magnesium (1.8-2.4) mg/dl Total Bilirubin (0.2-1.0) mg/dL AST (15-37) U/L ALT (14-59) U/L Alkaline Phosphatase (46-116) U/L Total Protein (6.4-8.2) g/dl Albumin (3.4-5.0) g/dl Globulin gm/dL Albumin/Globulin Ratio (1-2) Urine Color (Yellow) Urine Appearance (Clear) Urine pH (5.0-8.0) Ur Specific [place] (1.005-1.030) Urine Protein (Negative) Urine Glucose (UA) (Negative) Urine Ketones (Negative) Urine Occult Blood (Negative) Urine Nitrite (Negative) Urine Bilirubin (Negative) Urine Urobilinogen (0.2-1.0) Ur Leukocyte Esterase (Negative) Urine RBC (0-5) /hpf Urine WBC (0-5) /hpf Ur Epithelial Cells (0-5) /hpf Urine Bacteria (FEW) /hpf Urine Mucus (FEW) /hpf Urine Yeast (NOT SEEN) Ketones (0.0-0.3) mM Blood Type Gel Antibody Screen Crossmatch 05/03/20 05/03/20 05/03/20 Range/Units 05:05 05:05 06:07 WBC (3.98-10.04) K/mm3 RBC (3.98-5.22) M/mm3 Hgb (11.2-15.7) gm/dl Hct (34.1-44.9) % MCV (79.4-94.8) fl MCH (25.6-32.2) pg MCHC (32.2-35.5) g/dl RDW Std Deviation (36.4-46.3) fL Plt Count (182-369) K/mm3 MPV (9.4-12.3) fl Neut % (Auto) (34.0-71.1) % Lymph % (Auto) (19.3-51.7) % [place]ila % (Auto) (4.7-12.5) % Eos % (Auto) (0.7-5.8) Baso % (Auto) (0.1-1.2) % Neut # (Auto) (1.56-6.13) K/mm3 Lymph # (Auto) (1.18-3.74) K/mm3 Gila # (Auto) (0.24-0.36) K/mm3 Eos # (Auto) (0.04-0.36) K/mm3 Baso # (Auto) (0.01-0.08) K/mm3 Sodium 141 (136-145) mEq/L Potassium 3.8 (3.5-5.1) mEq/L Chloride 107 (98-107) mEq/L Carbon Dioxide 31 (21-32) mEq/L Anion Gap 6.8 (5-15) BUN 8 (7-18) mg/dL Creatinine 0.7 (0.55-1.02) mg/dL Est Cr Clr Drug Dosing 100.40 mL/min Estimated GFR (MDRD) > 60 (>60) mL/min BUN/Creatinine Ratio 11.4 L (14-18) Glucose 114 H (74-106) mg/dL POC Glucose 103 (70-105) mg/dL Calcium 7.8 L (8.5-10.1) mg/dL Magnesium 1.9 (1.8-2.4) mg/dl Total Bilirubin 0.3 (0.2-1.0) mg/dL AST 14 L (15-37) U/L ALT 25 (14-59) U/L Alkaline Phosphatase 51 (46-116) U/L Total Protein 4.0 L (6.4-8.2) g/dl Albumin 1.9 L (3.4-5.0) g/dl Globulin 2.1 gm/dL Albumin/Globulin Ratio 0.9 L (1-2) Urine Color (Yellow) Urine Appearance (Clear) Urine pH (5.0-8.0) Ur Specific [place] (1.005-1.030) Urine Protein (Negative) Urine Glucose (UA) (Negative) Urine Ketones (Negative) Urine Occult Blood (Negative) Urine Nitrite (Negative) Urine Bilirubin (Negative) Urine Urobilinogen (0.2-1.0) Ur Leukocyte Esterase (Negative) Urine RBC (0-5) /hpf Urine WBC (0-5) /hpf Ur Epithelial Cells (0-5) /hpf Urine Bacteria (FEW) /hpf Urine Mucus (FEW) /hpf Urine Yeast (NOT SEEN) Ketones 0.75 (0.0-0.3) mM Blood Type Gel Antibody Screen Crossmatch 05/03/20 Range/Units 11:03 WBC (3.98-10.04) K/mm3 RBC (3.98-5.22) M/mm3 Hgb (11.2-15.7) gm/dl Hct (34.1-44.9) % MCV (79.4-94.8) fl MCH (25.6-32.2) pg MCHC (32.2-35.5) g/dl RDW Std Deviation (36.4-46.3) fL Plt Count (182-369) K/mm3 MPV (9.4-12.3) fl Neut % (Auto) (34.0-71.1) % Lymph % (Auto) (19.3-51.7) % Gila % (Auto) (4.7-12.5) % Eos % (Auto) (0.7-5.8) Baso % (Auto) (0.1-1.2) % Neut # (Auto) (1.56-6.13) K/mm3 Lymph # (Auto) (1.18-3.74) K/mm3 G[place] # (Auto) (0.24-0.36) K/mm3 Eos # (Auto) (0.04-0.36) K/mm3 Baso # (Auto) (0.01-0.08) K/mm3 Sodium (136-145) mEq/L Potassium (3.5-5.1) mEq/L Chloride (98-107) mEq/L Carbon Dioxide (21-32) mEq/L Anion Gap (5-15) BUN (7-18) mg/dL Creatinine (0.55-1.02) mg/dL Est Cr Clr Drug Dosing mL/min Estimated GFR (MDRD) (>60) mL/min BUN/Creatinine Ratio (14-18) Glucose (74-106) mg/dL POC Glucose 139 H (70-105) mg/dL Calcium (8.5-10.1) mg/dL Magnesium (1.8-2.4) mg/dl Total Bilirubin (0.2-1.0) mg/dL AST (15-37) U/L ALT (14-59) U/L Alkaline Phosphatase (46-116) U/L Total Protein (6.4-8.2) g/dl Albumin (3.4-5.0) g/dl Globulin gm/dL Albumin/Globulin Ratio (1-2) Urine Color (Yellow) Urine Appearance (Clear) Urine pH (5.0-8.0) Ur Specific [place] (1.005-1.030) Urine Protein (Negative) Urine Glucose (UA) (Negative) Urine Ketones (Negative) Urine Occult Blood (Negative) Urine Nitrite (Negative) Urine Bilirubin (Negative) Urine Urobilinogen (0.2-1.0) Ur Leukocyte Esterase (Negative) Urine RBC (0-5) /hpf Urine WBC (0-5) /hpf Ur Epithelial Cells (0-5) /hpf Urine Bacteria (FEW) /hpf Urine Mucus (FEW) /hpf Urine Yeast (NOT SEEN) Ketones (0.0-0.3) mM Blood Type Gel Antibody Screen Crossmatch Med Orders - Current: Current Medications Enoxaparin Sodium (Lovenox) 40 mg SUBCUT DAILY [facility] Last Admin: 05/03/20 08:22 Dose: 40 mg Ceftriaxone Sodium 1 gm/ (Sodium Chloride) 100 mls @ 200 mls/hr IV Q24H [facility] Last Admin: 05/03/20 11:34 Dose: 200 mls/hr Insulin Glargine (Lantus) 12 unit SUBCUT DAILY [facility] Last Admin: 05/03/20 08:39 Dose: 12 units Insulin Human Lispro (Humalog) 0 unit SUBCUT QIDACANDBED [facility]; Protocol Last Admin: 05/03/20 11:05 Dose: Not Given Miscellaneous Information (Remove Patch) 1 ea TRDERM DAILY [facility] Last Admin: 05/03/20 08:15 Dose: 1 ea Nicotine (Habitrol) 21 mg TRDERM DAILY [facility] Last Admin: 05/03/20 08:22 Dose: 21 mg Ondansetron HCl (Zofran) 4 mg IV Q6H PRN PRN Reason: Nausea/Vomiting Last Admin: 05/03/20 08:21 Dose: 4 mg Pantoprazole Sodium (Protonix) 40 mg PO BID [facility] Last Admin: 05/03/20 08:22 Dose: 40 mg Buprenorp-Nalox 8-2 (Mg Sl) 0 each .XX DAILY [facility] Last Admin: 05/03/20 08:22 Dose: 1.5 each Discontinued Medications Fentanyl (Sublimaze) 50 mcg IVPUSH ONETIME ONE Stop: 05/01/20 00:59 Last Admin: 05/01/20 01:03 Dose: 50 mcg Fentanyl (Sublimaze) 50 mcg IVPUSH ONETIME ONE Stop: 05/01/20 01:59 Last Admin: 05/01/20 02:03 Dose: 50 mcg Fluconazole (Diflucan) 150 mg PO ONETIME ONE Stop: 05/02/20 15:20 Last Admin: 05/02/20 16:18 Dose: 150 mg Sodium Chloride (Normal Saline) 1,000 mls @ 999 mls/hr IV ONETIME ONE Stop: 05/01/20 00:48 Last Admin: 05/01/20 00:27 Dose: 999 mls/hr Insulin Human Regular 100 unit (/ Sodium Chloride) 100 mls @ 4.76 mls/hr IV TITRATE TONIO; Protocol Stop: 05/01/20 13:30 Last Titration: 05/01/20 13:18 Dose: 0 units/kg/hr, 0 mls/hr Sodium Chloride (Normal Saline) Confirm Administered Dose 100 mls @ as directed .ROUTE .[facility]-MED ONE Stop: 05/01/20 01:27 Last Admin: 05/01/20 01:41 Dose: Not Given Sodium Chloride (Normal Saline) Confirm Administered Dose 1,000 mls @ as directed .ROUTE .[facility]-MED ONE Stop: 05/01/20 01:36 Last Admin: 05/01/20 01:41 Dose: Not Given Sodium Chloride (Normal Saline) 1,000 mls @ 999 mls/hr IV ONETIME ONE Stop: 05/01/20 02:41 Last Admin: 05/01/20 01:53 Dose: 999 mls/hr Dextrose/Water (Dextrose 10% In Water) 1,000 mls @ 40 mls/hr IV ASDIRECTED [facility] Stop: 05/02/20 10:00 Last Admin: 05/01/20 09:04 Dose: 40 mls/hr Lactated Ringer's (Ringers, Lactated) 1,000 mls @ 150 mls/hr IV ASDIRECTED [facility] Last Infusion: 05/01/20 14:00 Dose: 75 mls/hr Lactated Ringer's (Ringers, Lactated) 1,000 mls @ 999 mls/hr IV ASDIRECTED [facility] Stop: 05/02/20 03:16 Last Admin: 05/01/20 04:12 Dose: 999 mls/hr Piperacillin Sod/Tazobactam (Sod 4.5 gm/ Sodium Chloride) 100 mls @ 200 mls/hr IV ONETIME ONE Stop: 05/01/20 03:59 Last Admin: 05/01/20 03:45 Dose: 200 mls/hr Piperacillin Sod/Tazobactam (Sod 4.5 gm/ Sodium Chloride) 100 mls @ 25 mls/hr IV Q8H [facility] Magnesium Sulfate 4 gm/ Premix 50 mls @ 12.5 mls/hr IV ONETIME ONE Stop: 05/01/20 08:26 Last Admin: 05/01/20 04:59 Dose: Not Given Potassium Phosphate 30 mmole/ (Sodium Chloride) 510 mls @ 102 mls/hr IV ONETIME ONE Stop: 05/01/20 17:59 Last Admin: 05/01/20 13:17 Dose: 102 mls/hr Potassium Chloride 10 meq/ (Premix) 100 mls @ 100 mls/hr IV Q1H [facility] Stop: 05/01/20 12:59 Last Admin: 05/01/20 11:53 Dose: 100 mls/hr Magnesium Sulfate 4 gm/ Premix 50 mls @ 12.5 mls/hr IV ONETIME ONE Stop: 05/01/20 14:59 Last Admin: 05/01/20 10:58 Dose: 12.5 mls/hr Lactated Ringer's (Ringers, Lactated) 1,000 mls @ 75 mls/hr IV ASDIRECTED [facility] Last Admin: 05/01/20 21:52 Dose: 75 mls/hr Sodium Chloride (Normal Saline) 250 mls @ 50 mls/hr IV ASDIRECTED [facility] Stop: 05/02/20 23:00 Last Admin: 05/02/20 11:03 Dose: 50 mls/hr Sodium Chloride (Normal Saline) Confirm Administered Dose 250 mls @ as directed .ROUTE .STK-MED ONE Stop: 05/02/20 10:44 Last Admin: 05/02/20 11:27 Dose: Not Given Insulin Glargine (Lantus) 54 unit SUBCUT DAILY [facility] Last Admin: 05/01/20 13:25 Dose: Not Given Insulin Glargine (Lantus) 20 unit SUBCUT DAILY [facility] Insulin Glargine (Lantus) 15 unit SUBCUT DAILY [facility] Last Admin: 05/02/20 08:38 Dose: 15 units Insulin Human Lispro (Humalog) 9 unit SUBCUT TIDMEALS [facility] Insulin Human Lispro (Humalog) 4 unit SUBCUT TIDMEALS [facility] Last Admin: 05/02/20 09:05 Dose: Not Given Insulin Human Regular (Humulin R) 4 unit IV ONETIME ONE Stop: 04/30/20 23:49 Last Admin: 05/01/20 00:28 Dose: 4 unit Insulin Human Regular (Humulin R) 10 unit IV ONETIME ONE Stop: 05/01/20 03:57 Last Admin: 05/01/20 04:08 Dose: 10 unit Morphine Sulfate (Morphine) 1 mg IVPUSH ONETIME ONE Stop: 05/01/20 03:13 Last Admin: 05/01/20 03:21 Dose: 1 mg Ondansetron HCl (Zofran) 4 mg IVPUSH ONETIME ONE Stop: 04/30/20 23:56 Last Admin: 05/01/20 00:27 Dose: 4 mg - Exam General: Reports: Alert, Oriented HEENT: Reports: Pupils Equal, Mucous Membr. Moist/[place]ck: Reports: Supple Lungs: Reports: Clear to Auscultation, Normal Respiratory Effort Cardiovascular: Reports: Regular Rate, Regular Rhythm GI/Abdominal Exam: Normal Bowel Sounds, Soft, Tender (Diffusely tender worse in the epigastrium). No: Guarding, Rigid, Rebound Extremities: Normal Inspection, Normal Range of Motion, Non-Tender, No Pedal Edema, Normal Capillary Refill Psy/Mental Status: Reports: Alert, Normal Affect, Normal Mood
== END 2020-05-03 12:18 | disposition home or self-care (01) | DRG 638 ==
LOC: JD.ED 23:30 → JD.ICU 05-01 01:34
PROVIDERS: ADMIT Internal Medicine; ATTEND Internal Medicine
PROC: 05HM33Z Insertion of Infusion Device into Right Internal Jugular Vein, Percutaneous Approach (ICD-10-PCS; 2020-05-01)
PROC: 30233N1 Transfusion of Nonautologous Red Blood Cells into Peripheral Vein, Percutaneous Approach (ICD-10-PCS; principal; 2020-05-02)
DX: E10.10 Type 1 diabetes mellitus with ketoacidosis without coma (principal); E87.1 Hypo-osmolality and hyponatremia; E87.3 Alkalosis; N17.9 Acute kidney failure, unspecified; K58.0 Irritable bowel syndrome with diarrhea; M19.90 Unspecified osteoarthritis, unspecified site; R64 Cachexia; F11.20 Opioid dependence, uncomplicated; I10 Essential (primary) hypertension; Z86.14 Personal history of Methicillin resistant Staphylococcus aureus infection; Z90.49 Acquired absence of other specified parts of digestive tract; F41.9 Anxiety disorder, unspecified; Z88.6 Allergy status to analgesic agent; F32.9 Major depressive disorder, single episode, unspecified; Z91.048 Other nonmedicinal substance allergy status; Z79.4 Long term (current) use of insulin; K21.9 Gastro-esophageal reflux disease without esophagitis; M54.9 Dorsalgia, unspecified; G89.29 Other chronic pain; F17.200 Nicotine dependence, unspecified, uncomplicated; D64.9 Anemia, unspecified; D47.3 Essential (hemorrhagic) thrombocythemia; E83.39 Other disorders of phosphorus metabolism; E88.09 Other disorders of plasma-protein metabolism, not elsewhere classified; Z91.040 Latex allergy status; Z88.5 Allergy status to narcotic agent; Z91.09 Other allergy status, other than to drugs and biological substances; Z79.899 Other long term (current) drug therapy; Z86.711 Personal history of pulmonary embolism; Z86.718 Personal history of other venous thrombosis and embolism; Z91.19 Patient's noncompliance with other medical treatment and regimen
CPT/HCPCS: 36415; 36600; 80053; 80306; 81003; 81025; 82009; 82803; 83605; 83690; 85025; 96361; 96374; 96375; 99285; J1815; J2405; J3010; J7030; 36430; 51702; 80048; 80307; 81001; 82607; 82747; 82947; 82962; 83540; 83735; 84100; 84466; 84478; 85014; 85018; 86850; 86900; 86901; 86922; 87086; 93010; A9270-GY; J0696; J1650; J2270; J2543; J3475; J3480; J3490; J7040; J7042; J7050; J7120; P9016

== ENCOUNTER 2020-08-18 19:13 | Emergency (ER) | payer MEDICAID ==
[2020-08-18] MEDS ORDERED: Ondansetron 4 MG/2 ML SDV IVPUSH ONE (19:52)
[2020-08-18] MEDS ORDERED: Sodium Chloride 0.9% 1,000 ML IV ONE ×2 (19:52→22:30)
[2020-08-18] MEDS ORDERED: Sodium Chloride 0.9% 10 ML Syringe FLUSH PRN (19:52)
[2020-08-18] MEDS ORDERED: HYDROmorphone 1 MG/ML Syringe IVPUSH ONE (19:57)
--- NOTE | 2020-08-18 20:08 | EDM.PDOC ---
ED HPI GENERAL MEDICAL PROBLEM - General Chief Complaint: General Stated Complaint: BLOOD IN VOMIT Time Seen by Provider: 08/18/20 19:47 Source of Information: Reports: Patient, RN Notes Reviewed History Limitations: Reports: No Limitations - History of Present Illness INITIAL COMMENTS - FREE TEXT/NARRATIVE: Patient is a 35-year-old female who presents to the ED for evaluation of her ongoing nausea and vomiting. Patient states that she did have an upper endoscopy and colonoscopy done on 08/15/2020, and was told it would be a couple days before she would feel normal again. She has been having increasing nausea and vomiting, not been able to keep a lot of anything down at all, she states that she took her last dose of Phenergan tonight before she ate, but has not been able to keep much down for food or fluids. She is not having any fevers or chills, cough or shortness of breath, she did have a COVID test before surgery, this was negative. Patient has a history of diabetes, notes that her blood sugars have been in the 300s, but she is taking her medications as directed. Abdominal Pain Score (Numeric/FACES): 10 - Related Data Allergies Allergy/AdvReac Type Severity Reaction Status Date / Time latex Allergy Mild Hives Verified 08/18/20 19:34 tramadol Allergy Mild Hives Verified 08/18/20 19:34 purex laundry soap Allergy Mild Hives Uncoded 08/18/20 19:34 Home Meds: Home Meds Buprenorphine HCl/Naloxone HCl [Buprenorp-Nalox 8-2 mg Sl Film] 20 mg SL DAILY 02/29/20 [History] Insulin Aspart [NovoLOG] 2 unit SUBCUT TIDPC #2 pen 04/26/20 [Rx] Insulin Degludec [Tresiba] 6 unit SQ DAILY #2 vial 04/26/20 [Rx] Pantoprazole [ProTONIX] 40 mg PO BID #60 tab.cr 04/26/20 [Rx] Past Medical History HEENT History: Reports: Other (See Below) Other HEENT History: dysphagia Cardiovascular History: Reports: Hypertension Respiratory History: Reports: PE Gastrointestinal History: Reports: Chronic Diarrhea, GERD, Irritable Bowel Syndrome Other Gastrointestinal History: diarrhea, nausea, LLQ pain 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 History: Reports: Acute Renal Failure [employer] REP History: Reports: Endometriosis, Other [employer]P History: amenorrhea Musculoskeletal History: Reports: Arthritis, Back Pain, Chronic Other Musculoskeletal History: chronic pain Neurological History: Reports: Headaches, Chronic, Migraines, Seizure Other Neuro History: Diabetic seizure Psychiatric History: Reports: Anxiety, Depression Other Psychiatric History: drug use history Endocrine/Metabolic History: Reports: Diabetes, Type I, Hypokalemia Other Endocrine/Metabolic History: hypokalemia 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, MRSA Dermatologic History: Reports: Eczema, Psoriasis - Infectious Disease History Infectious Disease History: Reports: MRSA Other Infectious Disease History: MRSA-2 yrs ago - Past Surgical History GI Surgical History: Reports: Cholecystectomy Other GI Surgeries/Procedures: ileostomy and closure, small bowel resection Social & Family History - Family History Family Medical History: Noncontributory - Caffeine Use Caffeine Use: Reports: None Other Caffeine Use: drinks mellow yellow daily about 3 cans Caffeine Use Comment: unable to assess and verify for now due to condition - Living Situation & Occupation Living situation: Reports: Single, with Family Occupation: Unemployed ED ROS GENERAL - Review of Systems Review Of Systems: Comprehensive ROS is negative, except as noted in HPI. ED EXAM, GENERAL - Physical Exam Exam: See Below Exam Limited By: No Limitations General Appearance: Alert, WD/WN, No Apparent Distress (pt has a slightly fruity/ketotic odor to her) Throat/Mouth: Normal Inspection, Normal Lips, Normal Gums, Normal Oropharynx, Normal Voice, No Airway Compromise Respiratory/Chest: No Respiratory Distress, Lungs Clear, Normal Breath Sounds, No Accessory Muscle Use, Chest Non-Tender Cardiovascular: Normal Peripheral Pulses, Regular Rate, Rhythm, No Murmur GI/Abdominal: Normal Bowel Sounds, Soft, Non-Tender, No Distention, No Mass Extremities: Normal Inspection, Normal Capillary Refill Neurological: Alert, Oriented, Normal Cognition, No Motor/Sensory Deficits Psychiatric: Normal Affect, Normal Mood Skin Exam: Warm, Dry, Intact, No Rash, Pallor (generalized pallor) Course - Vital Signs Last Recorded V/S: Last Vital Signs Temp 98.6 F 08/18/20 19:28 Pulse 118 H 08/18/20 19:28 Resp 20 08/18/20 19:28 BP 155/125 H 08/18/20 19:28 Pulse Ox 98 08/18/20 19:28 - Orders/Labs/Meds Orders: Active Orders 24 hr Category Date Time Status Blood Glucose Check, Bedside [RC] Q1H Care 08/18/20 22:54 Ordered POC Glucose [Blood Glucose Check, Bedside] [RC] ONETIME Care 08/18/20 23:16 Ordered Peripheral IV Care [RC] . DIRECTED Care 08/18/20 19:52 Active Chest 1V Frontal [CR] Stat Exams 08/18/20 22:25 Ordered CORONAVIRUS COVID-19 RAPID [MOLEC] Stat Lab 08/18/20 22:10 Ordered Insulin Regular, Human [HumuLIN R] 100 unit Med 08/18/20 23:00 Active Sodium Chloride 0.9% [Normal Saline] 99 ml IV TITRATE Sodium Chloride 0.9% [Normal Saline] 1,000 ml Med 08/18/20 22:30 Active IV ONETIME Sodium Chloride 0.9% [Saline Flush] Med 08/18/20 19:52 Active 10 ml FLUSH ASDIRECTED PRN Peripheral IV Insertion Adult [OM.PC] Routine Oth 08/18/20 19:52 Ordered Medication Orders Sodium Chloride (Normal Saline) 1,000 mls @ 999 mls/hr IV ONETIME ONE Stop: 08/18/20 23:30 Insulin Human Regular 100 unit (/ Sodium Chloride) 100 mls @ 5.897 mls/hr IV TITRATE TONIO; Protocol Sodium Chloride (Saline Flush) 10 ml FLUSH ASDIRECTED PRN PRN Reason: Keep Vein Open Last Admin: 08/18/20 22:51 Dose: 10 ml Documented by: HEATHER Labs: Laboratory Tests 08/18/20 08/18/20 08/18/20 Range/Units 19:45 21:01 21:01 WBC (3.98-10.04) K/mm3 RBC (3.98-5.22) M/mm3 Hgb (11.2-15.7) gm/dl Hct (34.1-44.9) % MCV (79.4-94.8) fl MCH (25.6-32.2) pg MCHC (32.2-35.5) g/dl RDW Std Deviation (36.4-46.3) fL Plt Count (182-369) K/mm3 MPV (9.4-12.3) fl Neut % (Auto) (34.0-71.1) % Lymph % (Auto) (19.3-51.7) % [place] % (Auto) (4.7-12.5) % Eos % (Auto) (0.7-5.8) Baso % (Auto) (0.1-1.2) % Neut # (Auto) (1.56-6.13) K/mm3 Lymph # (Auto) (1.18-3.74) K/mm3 [place] # (Auto) (0.24-0.36) K/mm3 Eos # (Auto) (0.04-0.36) K/mm3 Baso # (Auto) (0.01-0.08) K/mm3 Manual Slide Review VBG pH (7.30-7.40) Sodium 133 L (136-145) mEq/L Potassium 4.7 (3.5-5.1) mEq/L Chloride 94 L (98-107) mEq/L Carbon Dioxide 15 L D (21-32) mEq/L Anion Gap 28.7 H (5-15) BUN 41 H D (7-18) mg/dL Creatinine 1.3 H (0.55-1.02) mg/dL Est Cr Clr Drug Dosing 55.69 mL/min Estimated GFR (MDRD) 46 (>60) mL/min BUN/Creatinine Ratio 31.5 H (14-18) Glucose 416 H (74-106) mg/dL Serum Osmolality (280-300) mosm/kg Lactic Acid (0.4-2.0) mmol/L Calcium 9.5 (8.5-10.1) mg/dL Total Bilirubin 0.9 (0.2-1.0) mg/dL AST 11 L (15-37) U/L ALT 20 (14-59) U/L Alkaline Phosphatase 107 (46-116) U/L Total Protein 6.6 (6.4-8.2) g/dl Albumin 3.5 (3.4-5.0) g/dl Globulin 3.1 gm/dL Albumin/Globulin Ratio 1.1 (1-2) Urine Color Yellow (Yellow) Urine Appearance Clear (Clear) Urine pH 5.5 (5.0-8.0) Ur Specific [place] > or = 1.030 (1.005-1.030) Urine Protein 3+ H (Negative) Urine Glucose (UA) 2+ H (Negative) Urine Ketones 4+ H (Negative) Urine Occult Blood 2+ H (Negative) Urine Nitrite Negative (Negative) Urine Bilirubin Negative (Negative) Urine Urobilinogen 0.2 (0.2-1.0) Ur Leukocyte Esterase Negative (Negative) Urine RBC 20-30 H (0-5) /hpf Urine WBC 0-5 (0-5) /hpf Ur Squamous Epith Cells 0-5 (0-5) /hpf Urine Bacteria Few (FEW) /hpf Urine Mucus Rare (FEW) /hpf Ketones 14.77 (0.0-0.3) mM 08/18/20 08/18/20 08/18/20 Range/Units 21:23 21:23 22:15 WBC 11.63 H (3.98-10.04) K/mm3 RBC 5.05 (3.98-5.22) M/mm3 Hgb 15.1 D (11.2-15.7) gm/dl Hct 44.7 (34.1-44.9) % MCV 88.5 D (79.4-94.8) fl MCH 29.9 (25.6-32.2) pg MCHC 33.8 (32.2-35.5) g/dl RDW Std Deviation 40.5 (36.4-46.3) fL Plt Count 262 (182-369) K/mm3 MPV 9.3 L (9.4-12.3) fl Neut % (Auto) 85.5 H (34.0-71.1) % Lymph % (Auto) 8.7 L (19.3-51.7) % [place] % (Auto) 5.4 (4.7-12.5) % Eos % (Auto) 0 L (0.7-5.8) Baso % (Auto) 0.1 (0.1-1.2) % Neut # (Auto) 9.95 H (1.56-6.13) K/mm3 Lymph # (Auto) 1.01 L (1.18-3.74) K/mm3 [place] # (Auto) 0.63 H (0.24-0.36) K/mm3 Eos # (Auto) 0.00 L (0.04-0.36) K/mm3 Baso # (Auto) 0.01 (0.01-0.08) K/mm3 Manual Slide Review Abnormal smear VBG pH 7.29 L (7.30-7.40) Sodium (136-145) mEq/L Potassium (3.5-5.1) mEq/L Chloride (98-107) mEq/L Carbon Dioxide (21-32) mEq/L Anion Gap (5-15) BUN (7-18) mg/dL Creatinine (0.55-1.02) mg/dL Est Cr Clr Drug Dosing mL/min Estimated GFR (MDRD) (>60) mL/min BUN/Creatinine Ratio (14-18) Glucose (74-106) mg/dL Serum Osmolality 322 H (280-300) mosm/kg Lactic Acid (0.4-2.0) mmol/L Calcium (8.5-10.1) mg/dL Total Bilirubin (0.2-1.0) mg/dL AST (15-37) U/L ALT (14-59) U/L Alkaline Phosphatase (46-116) U/L Total Protein (6.4-8.2) g/dl Albumin (3.4-5.0) g/dl Globulin gm/dL Albumin/Globulin Ratio (1-2) Urine Color (Yellow) Urine Appearance (Clear) Urine pH (5.0-8.0) Ur Specific [place] (1.005-1.030) Urine Protein (Negative) Urine Glucose (UA) (Negative) Urine Ketones (Negative) Urine Occult Blood (Negative) Urine Nitrite (Negative) Urine Bilirubin (Negative) Urine Urobilinogen (0.2-1.0) Ur Leukocyte Esterase (Negative) Urine RBC (0-5) /hpf Urine WBC (0-5) /hpf Ur Squamous Epith Cells (0-5) /hpf Urine Bacteria (FEW) /hpf Urine Mucus (FEW) /hpf Ketones (0.0-0.3) mM 09/18/20 Range/Units 22:19 WBC (3.98-10.04) K/mm3 RBC (3.98-5.22) M/mm3 Hgb (11.2-15.7) gm/dl Hct (34.1-44.9) % MCV (79.4-94.8) fl MCH (25.6-32.2) pg MCHC (32.2-35.5) g/dl RDW Std Deviation (36.4-46.3) fL Plt Count (182-369) K/mm3 MPV (9.4-12.3) fl Neut % (Auto) (34.0-71.1) % Lymph % (Auto) (19.3-51.7) % [place] % (Auto) (4.7-12.5) % Eos % (Auto) (0.7-5.8) Baso % (Auto) (0.1-1.2) % Neut # (Auto) (1.56-6.13) K/mm3 Lymph # (Auto) (1.18-3.74) K/mm3 [place] # (Auto) (0.24-0.36) K/mm3 Eos # (Auto) (0.04-0.36) K/mm3 Baso # (Auto) (0.01-0.08) K/mm3 Manual Slide Review VBG pH (7.30-7.40) Sodium (136-145) mEq/L Potassium (3.5-5.1) mEq/L Chloride (98-107) mEq/L Carbon Dioxide (21-32) mEq/L Anion Gap (5-15) BUN (7-18) mg/dL Creatinine (0.55-1.02) mg/dL Est Cr Clr Drug Dosing mL/min Estimated GFR (MDRD) (>60) mL/min BUN/Creatinine Ratio (14-18) Glucose (74-106) mg/dL Serum Osmolality (280-300) mosm/kg Lactic Acid 1.5 (0.4-2.0) mmol/L Calcium (8.5-10.1) mg/dL Total Bilirubin (0.2-1.0) mg/dL AST (15-37) U/L ALT (14-59) U/L Alkaline Phosphatase (46-116) U/L Total Protein (6.4-8.2) g/dl Albumin (3.4-5.0) g/dl Globulin gm/dL Albumin/Globulin Ratio (1-2) Urine Color (Yellow) Urine Appearance (Clear) Urine pH (5.0-8.0) Ur Specific [place] (1.005-1.030) Urine Protein (Negative) Urine Glucose (UA) (Negative) Urine Ketones (Negative) Urine Occult Blood (Negative) Urine Nitrite (Negative) Urine Bilirubin (Negative) Urine Urobilinogen (0.2-1.0) Ur Leukocyte Esterase (Negative) Urine RBC (0-5) /hpf Urine WBC (0-5) /hpf Ur Squamous Epith Cells (0-5) /hpf Urine Bacteria (FEW) /hpf Urine Mucus (FEW) /hpf Ketones (0.0-0.3) mM Meds: Medications Generic Name Dose Route Start Last Admin Trade Name Freq PRN Reason Stop Dose Admin Sodium Chloride 1,000 mls @ 999 mls/hr 08/18/20 22:30 Normal Saline IV 08/18/20 23:30 ONETIME ONE Insulin Human Regular 100 unit 100 mls @ 5.897 mls/hr 08/18/20 23:00 / Sodium Chloride IV TITRATE TONIO Protocol 0.1 UNITS/KG/HR Sodium Chloride 10 ml 08/18/20 19:52 08/18/20 22:51 Saline Flush FLUSH 10 ml ASDIRECTED PRN Administration Keep Vein Open Discontinued Medications Generic Name Dose Route Start Last Admin Trade Name Freq PRN Reason Stop Dose Admin Hydromorphone HCl 1 mg 08/18/20 19:57 Dilaudid IVPUSH 08/18/20 19:58 ONETIME ONE Hydromorphone HCl 1 mg 08/18/20 20:42 08/18/20 21:00 Dilaudid IM 08/18/20 20:43 1 mg ONETIME ONE Administration Sodium Chloride 1,000 mls @ 999 mls/hr 08/18/20 19:52 08/18/20 22:50 Normal Saline IV 08/18/20 20:52 999 mls/hr ONETIME ONE Administration Metoclopramide HCl 10 mg 08/18/20 22:30 08/18/20 22:50 Reglan IVPUSH 08/18/20 22:31 10 mg ONETIME ONE Administration Ondansetron HCl 4 mg 08/18/20 19:52 Zofran IVPUSH 08/18/20 19:53 ONETIME ONE Ondansetron HCl 4 mg 08/18/20 20:42 08/18/20 20:59 Zofran Odt PO 09/18/20 20:43 4 mg ONETIME ONE Administration - Re-Assessments/Exams Free Text/Narrative Re-Assessment/Exam: 08/18/20 20:08 Patient presents to the ED for evaluation of her nausea and vomiting. She will get some IV fluids along with IV Zofran, basic labs to include ketones as well, she is a diabetic. She will likely need a few liters of fluid to make her feel better, she does have a very ketotic smell to her at this time. 08/18/20 20:49 Nursing staff is having a hard time getting an IV started on the patient. I have changed her Zofran to oral, and Dilaudid 2 IM at this time. We will have lab come draw her, and we will need to get LOCAL BULK DRIVER into place IV access, as I am fairly certain she will need IV fluid before going home. 08/18/20 22:07 The patient's labs demonstrate a mildly elevated white count at 11,000, glucose is elevated at 416, metabolic panel shows her CO2 low of 15. Anion gap elevated at 28.7. Ketones are elevated at 14, does appear that she is in DKA of sorts. Have ordered serum osmolality and a venous pH as well for further evaluation. As our hospital is on diversion, we will likely have to transfer her to [facility] for further management and care. LOCAL BULK DRIVER has been called in at this time for IV access. 08/18/20 22:31 LOCAL BULK DRIVER was able to get IV access at this time. IV fluid will be started. Venous pH has resulted and is 7.29. Patient's serum osmolality is 322. Patient states she is still having nausea, she was requesting more for nausea meds at this time, I did order 10 mg Reglan. 08/18/20 23:26 Patient's repeat blood sugar is 377. Departure - Departure Time of Disposition: 23:27 Disposition: DC/Tfer to Acute Hospital 02 Condition: Good Clinical Impression: Ketoacidosis in diabetes mellitus - Discharge Information Referrals: Saud Robin MD [Primary Care Provider] - Forms: ED Department Discharge Sepsis Event Note (ED) - Evaluation Sepsis Screening Result: No Definite Risk - Focused Exam Vital Signs: Vital Signs Temp Pulse Resp BP Pulse Ox 08/18/20 19:28 98.6 F 118 H 20 155/125 H 98 - My Orders Last 24 Hours: My Active Orders 08/18/20 19:52 Peripheral IV Care [RC] . DIRECTED Sodium Chloride 0.9% [Saline Flush] 10 ml FLUSH ASDIRECTED PRN Peripheral IV Insertion Adult [OM.PC] Routine 08/18/20 22:10 CORONAVIRUS COVID-19 RAPID [MOLEC] Stat 08/18/20 22:25 Chest 1V Frontal [CR] Stat 08/18/20 22:30 Sodium Chloride 0.9% [Normal Saline] 1,000 ml IV ONETIME 08/18/20 22:54 Blood Glucose Check, Bedside [RC] Q1H 08/18/20 23:00 Insulin Regular, Human [HumuLIN R] 100 unit Sodium Chloride 0.9% [Normal Saline] 99 ml IV TITRATE 08/18/20 23:16 POC Glucose [Blood Glucose Check, Bedside] [RC] ONETIME - Assessment/Plan Last 24 Hours: My Active Orders 08/18/20 19:52 Peripheral IV Care [RC] . DIRECTED Sodium Chloride 0.9% [Saline Flush] 10 ml FLUSH ASDIRECTED PRN Peripheral IV Insertion Adult [OM.PC] Routine 08/18/20 22:10 CORONAVIRUS COVID-19 RAPID [MOLEC] Stat 08/18/20 22:25 Chest 1V Frontal [CR] Stat 08/18/20 22:30 Sodium Chloride 0.9% [Normal Saline] 1,000 ml IV ONETIME 08/18/20 22:54 Blood Glucose Check, Bedside [RC] Q1H 08/18/20 23:00 Insulin Regular, Human [HumuLIN R] 100 unit Sodium Chloride 0.9% [Normal Saline] 99 ml IV TITRATE 08/18/20 23:16 POC Glucose [Blood Glucose Check, Bedside] [RC] ONETIME
[2020-08-18] MEDS ORDERED: Ondansetron 4 MG Tab.DIS PO ONE (20:42)
[2020-08-18] MEDS ORDERED: HYDROmorphone 1 MG/ML Syringe IM ONE (20:42)
[2020-08-18] MEDS ORDERED: Metoclopramide 10 MG/2 ML SDV IVPUSH ONE (22:30)
--- NOTE | 2020-08-18 22:47 | PCM.SN.2 ---
- Free Text/Narrative Note: Called for IV start. Room #6 ER. Sterile ChloraPrep to dry X1. Ultrasound [id number] for right proximal basilic vein X1 attempt with 20g 1.88" catheter. Good draw and flush. Pressure cap and pigtail in place. Secured with Tegaderm and tape. Routine. No concerns at this time.
[2020-08-18] MEDS ORDERED: HYDROmorphone 0.5 MG/0.5 ML Syringe IVPUSH ONE (23:44)
--- NOTE | 2020-08-19 06:30 | CR ---
Chest: Portable view of the chest was obtained. Comparison: Prior chest x-ray of 05/01/20. Heart size and mediastinum are normal. Lungs are clear with no acute parenchymal change. Bony structures are grossly intact. Impression: 1. Nothing acute is appreciated on portable chest x-ray. Diagnostic code #1 This report was dictated in MDT
== END 2020-08-19 00:25 ==
LOC: JD.ED 19:13
DX: E10.10 Type 1 diabetes mellitus with ketoacidosis without coma (principal); I10 Essential (primary) hypertension; K21.9 Gastro-esophageal reflux disease without esophagitis; Z91.040 Latex allergy status; Z88.5 Allergy status to narcotic agent; Z91.048 Other nonmedicinal substance allergy status; Z79.899 Other long term (current) drug therapy; Z86.711 Personal history of pulmonary embolism; Z11.59 Encounter for screening for other viral diseases
CPT/HCPCS: 36415; 71045; 80053; 81001; 82009; 82800; 82962; 83605; 83930; 85025; 87635; 96361; 96372; 96374; 96375; 99285; A9270; J1170; J1815; J2765; J7030; J7050; 36410; U0002

== ENCOUNTER 2020-09-30 10:32 | Inpatient (IN) | payer MEDICAID ==
[2020-09-30] MEDS ORDERED: Metoclopramide 10 MG/2 ML SDV IVPUSH ONE (11:00)
[2020-09-30] MEDS ORDERED: Lactated Ringers 1,000 ML IV SCH ×2 (11:00→12:45)
[2020-09-30] MEDS ORDERED: HYDROmorphone 0.5 MG/0.5 ML Syringe IVPUSH ONE ×2 (11:01→12:36)
--- NOTE | 2020-09-30 11:08 | EDM.PDOC ---
ED HPI GENERAL MEDICAL PROBLEM - General Chief Complaint: Diabetic Complaint Stated Complaint: VOMITING FROM DIABETES Time Seen by Provider: 09/30/20 11:00 Source of Information: Reports: Patient History Limitations: Reports: No Limitations - History of Present Illness INITIAL COMMENTS - FREE TEXT/NARRATIVE: 35-year-old female presents to the ED with a history of 2 days of recurrent nausea and vomiting. She indicates that there is flecks of blood in her emesis at times. She had 1 diarrhea stool last night without blood. She has not been able to keep anything down for the last 48 hours. She has been using insulin usually 2 units almost every hour to keep her blood sugars down. Patient has a insulin-dependent diabetic x12 years. She has had multiple admissions to the hospital due to diabetic ketoacidosis. She last took 2 units within the last hour for blood sugar at home of 234. Blood sugar in the ED is 199. She denies any fever or chills. Is lightheaded and weak. She used ketone strips at home and identified that her urine is strongly ketone positive. Patient continues to lose weight. She estimates her current weight is down to about 124 pounds. She has no known exposure to COVID-19 illness. Denies any genitourinary complaints. Diffuse upper abdominal pain characteristic of ketoacidosis or metabolic acidosis. Denies pain in her back. Of note patient is on Suboxone melt high- dose 8/20 mg sublingually daily. She states these tablets take up to a half an hour to dissolve and she has been able to keep one down for 2 days. This too could be contributing to acute onset of nausea vomiting diarrhea due to narcotic withdrawal. Abrupt withdrawal of this medication could, precipitate narcotic withdrawal symptoms with nausea and vomiting and diarrhea. Onset: Gradual Onset Date: 09/27/20 Duration: Day(s):, Constant, Getting Worse Location: Reports: Abdomen (Diffuse upper abdominal pain), Other Quality: Reports: Ache (Aching pain across the upper abdomen along the costal margins. Appreciates pain both lower quadrants of the abdomen perhaps a little worse on the left side than the right.) Severity: Moderate Improves with: Reports: None Worsens with: Reports: None (Down to 10.) Context: Reports: Other (History of recurrent). Denies: Activity, Exercise, Lifting, Sick Contact, Trauma Associated Symptoms: Reports: Loss of Appetite, Malaise, Nausea/Vomiting, Shortness of Breath, Weakness. Denies: Confusion, Chest Pain ( diabetic ketoacidosis.), Cough, cough w sputum, Diaphoresis, Fever/Chills, Headaches, Rash (Intractable x48 hours), Seizure, Syncope Treatments DIRECTOR [place]: Reports: Other (see below) (Cannot keep any of her medications down.) Abdominal Pain Score (Numeric/FACES): 9 - Related Data Allergies Allergy/AdvReac Type Severity Reaction Status Date / Time latex Allergy Mild Hives Verified 09/30/20 10:42 tramadol Allergy Mild Hives Verified 09/30/20 10:42 purex laundry soap Allergy Mild Hives Uncoded 08/18/20 19:34 Home Meds: Home Meds Buprenorphine HCl/Naloxone HCl [Buprenorp-Nalox 8-2 mg Sl Film] 20 mg SL DAILY 02/29/20 [History] Insulin Aspart [NovoLOG] 2 unit SUBCUT TIDPC #2 pen 04/26/20 [Rx] Pantoprazole [ProTONIX] 40 mg PO BID #60 tab.cr 04/26/20 [Rx] Insulin Degludec [Tresiba] 11 unit SQ DAILY 09/30/20 [History] Past Medical History HEENT History: Reports: Other (See Below) Other HEENT History: dysphagia Cardiovascular History: Reports: Hypertension Respiratory History: Reports: PE Gastrointestinal History: Reports: Chronic Diarrhea, GERD, Irritable Bowel Syndrome Other Gastrointestinal History: diarrhea, nausea, LLQ pain 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 History: Reports: Acute Renal Failure NET MANAGER History: Reports: Endometriosis, Other NET MANAGER History: amenorrhea Musculoskeletal History: Reports: Arthritis, Back Pain, Chronic Other Musculoskeletal History: chronic pain Neurological History: Reports: Headaches, Chronic, Migraines, Seizure Other Neuro History: Diabetic seizure Psychiatric History: Reports: Anxiety, Depression Other Psychiatric History: drug use history Endocrine/Metabolic History: Reports: Diabetes, Type I, Hypokalemia Other Endocrine/Metabolic History: hypokalemia. Multiple admissions to the hospital for diabetic ketoacidosis. 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, MRSA Dermatologic History: Reports: Eczema, Psoriasis - Infectious Disease History Infectious Disease History: Reports: MRSA Other Infectious Disease History: MRSA-2 yrs ago - Past Surgical History GI Surgical History: Reports: Cholecystectomy Other GI Surgeries/Procedures: ileostomy and closure, small bowel resection Social & Family History - Family History Family Medical History: Noncontributory - Tobacco Use Tobacco Use Status *Q: Current Every Day Tobacco User Years of Tobacco use: 15 Packs/Tins Daily: 1 - Caffeine Use Caffeine Use: Reports: None Other Caffeine Use: drinks mellow yellow daily about 3 cans Caffeine Use Comment: unable to assess and verify for now due to condition - Recreational Drug Use Recreational Drug Use: Yes Drug Use in Last 12 Months: Yes 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 Current weight is estimated to be about 124 pounds.). Denies: Fever, Chills HEENT: Reports: No Symptoms Respiratory: Reports: Shortness of Breath. Denies: Wheezing, Pleuritic Chest Pain, Cough, Sputum Cardiovascular: Reports: Dyspnea on Exertion, Lightheadedness, Palpitations. Denies: Chest Pain, Blood Pressure Problem, Claudication, Edema, Orthopnea Endocrine: Reports: Fatigue GI/Abdominal: Reports: Abdominal Pain (Fuhs upper abdominal pain and also pain in both lower quadrants -left a little worse than the right.), Diarrhea (Diarrhea stool last evening with no blood), Decreased Appetite, Nausea, Vomiting (Tractable nausea and vomiting of bilious secretions with flecks of blood.) : Reports: No Symptoms Musculoskeletal: Reports: Neck Pain, Back Pain Skin: Reports: Dryness Neurological: Reports: Dizziness, Headache, Numbness, Tingling, Difficulty Walking (Weakness in her lower extremities.), Weakness. Denies: Confusion, Syncope Psychiatric: Reports: Other (Currently on Suboxone daily.) Hematologic/Lymphatic: Reports: No Symptoms Immunologic: Reports: No Symptoms ED EXAM GENERAL NO PERIP PULSE - Physical Exam Exam: See Below Exam Limited By: No Limitations General Appearance: Alert, WD/WN, Moderate Distress, Other (Strong smell of ketones on her breath. Temperature is 36.8. Heart rate 110 and sinus tachycardia on the monitor respiratory is 20 with O2 sats of 94% room air. BP elevated 188/129.) Eye Exam: Bilateral Eye: Normal Inspection, PERRL (Mild blepharal pallor appreciated. No scleral icterus.) Throat/Mouth: Other Head: Atraumatic (Tongue is very dry and coated. No oropharyngeal infection appreciated), Normocephalic Neck: Normal Inspection, Supple, Non-Tender, Full Range of Motion. No: Lymphadenopathy (L), Lymphadenopathy (R), Thyromegaly Respiratory/Chest: Lungs Clear, Normal Breath Sounds, No Accessory Muscle Use, R espiratory Distress (Tachypnea at rest.). No: Decreased Breath Sounds Cardiovascular: No Edema, No Gallop, No Murmur, No Rub, Tachycardia ([place] on the monitor 110/min. Appears sinus) GI/Abdominal: Normal Bowel Sounds, Soft, No Organomegaly, No Mass, Pelvis Stable, Tender (Is appreciated on palpation of left lower quadrant and right lower quadrant abdomen without guarding or rebound tenderness.). No: Guarding, Rigid, Rebound Back Exam: Normal Inspection, Full Range of Motion. No: CVA Tenderness (L), CVA Tenderness (R) Extremities: Normal Inspection, Normal Range of Motion, Non-Tender, No Pedal Edema Neurological: Alert, Oriented, CN II-XII Intact, Normal Cognition Psychiatric: Anxious Skin Exam: Warm, Dry, Intact, Pallor (Mild pallor.) #1 Interpretation EKG Date: 09/30/20 Time: 11:30 Rhythm: NSR Rate (Beats/Min): 86 [place]: Normal P-Wave: Present (Borderline short NV interval) QRS: Other (Atrial hypertrophy pattern initial poor R wave progression. Borderline criteria for left ventricular hypertrophy pattern.) ST-T: Other (Diffuse early repolarization pattern skewing the ST segment slightly lower in the inferior wall. Q-wave appreciated aVL nonspecific finding) EKG Interpretation Comments: Abnormal ECG Course - Vital Signs Last Recorded V/S: Last Vital Signs Temp 36.8 C 09/30/20 10:39 Pulse 110 H 09/30/20 10:39 Resp 20 09/30/20 10:39 BP 188/129 H 09/30/20 10:39 Pulse Ox 94 L 09/30/20 10:39 - Orders/Labs/Meds Orders: Active Orders 24 hr Category Date Time Status Admission Status [Patient Status] [ADT] Routine ADT 09/30/20 12:43 Ordered Blood Glucose Check, Bedside [RC] ONETIME Care 09/30/20 11:02 Active EKG Documentation Completion [RC] STAT Care 09/30/20 11:01 Active Chest 1V Frontal [CR] Stat Exams 09/30/20 11:01 Taken CULTURE BLOOD [BC] Stat Lab 09/30/20 11:56 Received CULTURE BLOOD [BC] Stat Lab 09/30/20 12:08 Received LACTIC ACID [CHEM] Stat Lab 09/30/20 13:47 Ordered Lactated Ringers [Ringers, Lactated] 1,000 ml Med 09/30/20 11:00 Active IV ASDIRECTED Lactated Ringers [Ringers, Lactated] 1,000 ml Med 09/30/20 12:45 Ordered IV ASDIRECTED Potassium Chloride [KCl 10 MEQ in Water 100 ML] 10 meq Med 09/30/20 12:30 Active Premix Bag 1 bag IV Q1H Blood Culture x2 Reflex Set [OM.PC] Stat Oth 09/30/20 11:02 Ordered Medication Orders Lactated Ringer's (Ringers, Lactated) 1,000 mls @ 999 mls/hr IV ASDIRECTED TONIO Last Admin: 09/30/20 11:17 Dose: 999 mls/hr Documented by: CHEVKEL Potassium Chloride 10 meq/ (Premix) 100 mls @ 100 mls/hr IV Q1H TONIO Stop: 09/30/20 14:29 Last Admin: 09/30/20 12:34 Dose: 100 mls/hr Documented by: Lactated Ringer's (Ringers, Lactated) 1,000 mls @ 999 mls/hr IV ASDIRECTED [facility] Labs: Laboratory Tests 09/30/20 09/30/20 09/30/20 Range/Units 10:39 10:47 10:47 WBC 10.59 H (3.98-10.04) K/mm3 RBC 5.90 H (3.98-5.22) M/mm3 Hgb 17.4 H D (11.2-15.7) gm/dl Hct 51.3 H (34.1-44.9) % MCV 86.9 D (79.4-94.8) fl MCH 29.5 (25.6-32.2) pg MCHC 33.9 (32.2-35.5) g/dl RDW Std Deviation 42.4 (36.4-46.3) fL Plt Count 264 (182-369) K/mm3 MPV 9.9 (9.4-12.3) fl Neut % (Auto) 83.1 H (34.0-71.1) % Lymph % (Auto) 13.1 L (19.3-51.7) % [place] % (Auto) 3.4 L (4.7-12.5) % Eos % (Auto) 0.1 L (0.7-5.8) Baso % (Auto) 0.2 (0.1-1.2) % Neut # (Auto) 8.80 H (1.56-6.13) K/mm3 Lymph # (Auto) 1.39 (1.18-3.74) K/mm3 [place] # (Auto) 0.36 (0.24-0.36) K/mm3 Eos # (Auto) 0.01 L (0.04-0.36) K/mm3 Baso # (Auto) 0.02 (0.01-0.08) K/mm3 Manual Slide Review Abnormal smear PT 11.1 (9.7-12.0) SECONDS INR 1.04 APTT 25.3 (21.7-31.4) SECONDS Sodium (136-145) mEq/L Potassium (3.5-5.1) mEq/L Chloride (98-107) mEq/L Carbon Dioxide (21-32) mEq/L Anion Gap (5-15) BUN (7-18) mg/dL Creatinine (0.55-1.02) mg/dL Est Cr Clr Drug Dosing mL/min Estimated GFR (MDRD) (>60) mL/min BUN/Creatinine Ratio (14-18) Glucose (74-106) mg/dL POC Glucose 199 H (70-105) mg/dL Hemoglobin A1c (4.50-6.20) % Serum Osmolality (280-300) mosm/kg Lactic Acid (0.4-2.0) mmol/L Calcium (8.5-10.1) mg/dL Phosphorus (2.6-4.7) mg/dL Magnesium (1.8-2.4) mg/dl Total Bilirubin (0.2-1.0) mg/dL AST (15-37) U/L ALT (14-59) U/L Alkaline Phosphatase (46-116) U/L Troponin I (0.00-0.056) ng/mL C-Reactive Protein (<1.0) mg/dL NT-Pro-B Natriuret Pep (0-125) pg/mL Total Protein (6.4-8.2) g/dl Albumin (3.4-5.0) g/dl Globulin gm/dL Albumin/Globulin Ratio (1-2) Lipase (73-393) U/L TSH 3rd Generation (0.358-3.74) uIU/mL Urine Color (Yellow) Urine Appearance (Clear) Urine pH (5.0-8.0) Ur Specific [place] (1.005-1.030) Urine Protein (Negative) Urine Glucose (UA) (Negative) Urine Ketones (Negative) Urine Occult Blood (Negative) Urine Nitrite (Negative) Urine Bilirubin (Negative) Urine Urobilinogen (0.2-1.0) Ur Leukocyte Esterase (Negative) Urine RBC (0-5) /hpf Urine WBC (0-5) /hpf Ur Squamous Epith Cells (0-5) /hpf Urine Bacteria (FEW) /hpf Urine Mucus (FEW) /hpf Ketones (0.0-0.3) mM SARS-CoV-2 RNA (KIMMY) (NEGATIVE) 09/30/20 09/30/20 09/30/20 Range/Units 10:47 10:47 10:47 WBC (3.98-10.04) K/mm3 RBC (3.98-5.22) M/mm3 Hgb (11.2-15.7) gm/dl Hct (34.1-44.9) % MCV (79.4-94.8) fl MCH (25.6-32.2) pg MCHC (32.2-35.5) g/dl RDW Std Deviation (36.4-46.3) fL Plt Count (182-369) K/mm3 MPV (9.4-12.3) fl Neut % (Auto) (34.0-71.1) % Lymph % (Auto) (19.3-51.7) % [place] % (Auto) (4.7-12.5) % Eos % (Auto) (0.7-5.8) Baso % (Auto) (0.1-1.2) % Neut # (Auto) (1.56-6.13) K/mm3 Lymph # (Auto) (1.18-3.74) K/mm3 [place] # (Auto) (0.24-0.36) K/mm3 Eos # (Auto) (0.04-0.36) K/mm3 Baso # (Auto) (0.01-0.08) K/mm3 Manual Slide Review PT (9.7-12.0) SECONDS INR APTT (21.7-31.4) SECONDS Sodium 140 (136-145) mEq/L Potassium 3.3 L (3.5-5.1) mEq/L Chloride 96 L (98-107) mEq/L Carbon Dioxide 29 (21-32) mEq/L Anion Gap 18.3 H (5-15) BUN 29 H (7-18) mg/dL Creatinine 1.4 H (0.55-1.02) mg/dL Est Cr Clr Drug Dosing 49.72 mL/min Estimated GFR (MDRD) 43 (>60) mL/min BUN/Creatinine Ratio 20.7 H (14-18) Glucose 208 H (74-106) mg/dL POC Glucose (70-105) mg/dL Hemoglobin A1c (4.50-6.20) % Serum Osmolality 310 H (280-300) mosm/kg Lactic Acid (0.4-2.0) mmol/L Calcium 9.8 (8.5-10.1) mg/dL Phosphorus 4.3 (2.6-4.7) mg/dL Magnesium 1.9 (1.8-2.4) mg/dl Total Bilirubin 0.7 (0.2-1.0) mg/dL AST 13 L (15-37) U/L ALT 23 (14-59) U/L Alkaline Phosphatase 84 (46-116) U/L Troponin I < 0.017 (0.00-0.056) ng/mL C-Reactive Protein 0.5 (<1.0) mg/dL NT-Pro-B Natriuret Pep 1375 H (0-125) pg/mL Total Protein 7.7 (6.4-8.2) g/dl Albumin 4.2 (3.4-5.0) g/dl Globulin 3.5 gm/dL Albumin/Globulin Ratio 1.2 (1-2) Lipase (73-393) U/L TSH 3rd Generation (0.358-3.74) uIU/mL Urine Color (Yellow) Urine Appearance (Clear) Urine pH (5.0-8.0) Ur Specific [place] (1.005-1.030) Urine Protein (Negative) Urine Glucose (UA) (Negative) Urine Ketones (Negative) Urine Occult Blood (Negative) Urine Nitrite (Negative) Urine Bilirubin (Negative) Urine Urobilinogen (0.2-1.0) Ur Leukocyte Esterase (Negative) Urine RBC (0-5) /hpf Urine WBC (0-5) /hpf Ur Squamous Epith Cells (0-5) /hpf Urine Bacteria (FEW) /hpf Urine Mucus (FEW) /hpf Ketones 2.88 (0.0-0.3) mM SARS-CoV-2 RNA (KIMMY) (NEGATIVE) 09/30/20 09/30/20 09/30/20 Range/Units 10:47 10:47 10:47 WBC (3.98-10.04) K/mm3 RBC (3.98-5.22) M/mm3 Hgb (11.2-15.7) gm/dl Hct (34.1-44.9) % MCV (79.4-94.8) fl MCH (25.6-32.2) pg MCHC (32.2-35.5) g/dl RDW Std Deviation (36.4-46.3) fL Plt Count (182-369) K/mm3 MPV (9.4-12.3) fl Neut % (Auto) (34.0-71.1) % Lymph % (Auto) (19.3-51.7) % [place] % (Auto) (4.7-12.5) % Eos % (Auto) (0.7-5.8) Baso % (Auto) (0.1-1.2) % Neut # (Auto) (1.56-6.13) K/mm3 Lymph # (Auto) (1.18-3.74) K/mm3 [place] # (Auto) (0.24-0.36) K/mm3 Eos # (Auto) (0.04-0.36) K/mm3 Baso # (Auto) (0.01-0.08) K/mm3 Manual Slide Review PT (9.7-12.0) SECONDS INR APTT (21.7-31.4) SECONDS Sodium (136-145) mEq/L Potassium (3.5-5.1) mEq/L Chloride (98-107) mEq/L Carbon Dioxide (21-32) mEq/L Anion Gap (5-15) BUN (7-18) mg/dL Creatinine (0.55-1.02) mg/dL Est Cr Clr Drug Dosing mL/min Estimated GFR (MDRD) (>60) mL/min BUN/Creatinine Ratio (14-18) Glucose (74-106) mg/dL POC Glucose (70-105) mg/dL Hemoglobin A1c 8.00 H (4.50-6.20) % Serum Osmolality (280-300) mosm/kg Lactic Acid 2.7 H* (0.4-2.0) mmol/L Calcium (8.5-10.1) mg/dL Phosphorus (2.6-4.7) mg/dL Magnesium (1.8-2.4) mg/dl Total Bilirubin (0.2-1.0) mg/dL AST (15-37) U/L ALT (14-59) U/L Alkaline Phosphatase (46-116) U/L Troponin I (0.00-0.056) ng/mL C-Reactive Protein (<1.0) mg/dL NT-Pro-B Natriuret Pep (0-125) pg/mL Total Protein (6.4-8.2) g/dl Albumin (3.4-5.0) g/dl Globulin gm/dL Albumin/Globulin Ratio (1-2) Lipase (73-393) U/L TSH 3rd Generation 1.001 (0.358-3.74) uIU/mL Urine Color (Yellow) Urine Appearance (Clear) Urine pH (5.0-8.0) Ur Specific [place] (1.005-1.030) Urine Protein (Negative) Urine Glucose (UA) (Negative) Urine Ketones (Negative) Urine Occult Blood (Negative) Urine Nitrite (Negative) Urine Bilirubin (Negative) Urine Urobilinogen (0.2-1.0) Ur Leukocyte Esterase (Negative) Urine RBC (0-5) /hpf Urine WBC (0-5) /hpf Ur Squamous Epith Cells (0-5) /hpf Urine Bacteria (FEW) /hpf Urine Mucus (FEW) /hpf Ketones (0.0-0.3) mM SARS-CoV-2 RNA (KIMMY) (NEGATIVE) 09/30/20 09/30/20 09/30/20 Range/Units 10:47 11:20 11:20 WBC (3.98-10.04) K/mm3 RBC (3.98-5.22) M/mm3 Hgb (11.2-15.7) gm/dl Hct (34.1-44.9) % MCV (79.4-94.8) fl MCH (25.6-32.2) pg MCHC (32.2-35.5) g/dl RDW Std Deviation (36.4-46.3) fL Plt Count (182-369) K/mm3 MPV (9.4-12.3) fl Neut % (Auto) (34.0-71.1) % Lymph % (Auto) (19.3-51.7) % [place] % (Auto) (4.7-12.5) % Eos % (Auto) (0.7-5.8) Baso % (Auto) (0.1-1.2) % Neut # (Auto) (1.56-6.13) K/mm3 Lymph # (Auto) (1.18-3.74) K/mm3 [place] # (Auto) (0.24-0.36) K/mm3 Eos # (Auto) (0.04-0.36) K/mm3 Baso # (Auto) (0.01-0.08) K/mm3 Manual Slide Review PT (9.7-12.0) SECONDS INR APTT (21.7-31.4) SECONDS Sodium (136-145) mEq/L Potassium (3.5-5.1) mEq/L Chloride (98-107) mEq/L Carbon Dioxide (21-32) mEq/L Anion Gap (5-15) BUN (7-18) mg/dL Creatinine (0.55-1.02) mg/dL Est Cr Clr Drug Dosing mL/min Estimated GFR (MDRD) (>60) mL/min BUN/Creatinine Ratio (14-18) Glucose (74-106) mg/dL POC Glucose (70-105) mg/dL Hemoglobin A1c (4.50-6.20) % Serum Osmolality (280-300) mosm/kg Lactic Acid (0.4-2.0) mmol/L Calcium (8.5-10.1) mg/dL Phosphorus (2.6-4.7) mg/dL Magnesium (1.8-2.4) mg/dl Total Bilirubin (0.2-1.0) mg/dL AST (15-37) U/L ALT (14-59) U/L Alkaline Phosphatase (46-116) U/L Troponin I (0.00-0.056) ng/mL C-Reactive Protein (<1.0) mg/dL NT-Pro-B Natriuret Pep (0-125) pg/mL Total Protein (6.4-8.2) g/dl Albumin (3.4-5.0) g/dl Globulin gm/dL Albumin/Globulin Ratio (1-2) Lipase 32 L (73-393) U/L TSH 3rd Generation (0.358-3.74) uIU/mL Urine Color Yellow (Yellow) Urine Appearance Clear (Clear) Urine pH 6.0 (5.0-8.0) Ur Specific [place] > or = 1.030 (1.005-1.030) Urine Protein 3+ H (Negative) Urine Glucose (UA) 1+ H (Negative) Urine Ketones 3+ H (Negative) Urine Occult Blood 3+ H (Negative) Urine Nitrite Negative (Negative) Urine Bilirubin 2+ H (Negative) Urine Urobilinogen 0.2 (0.2-1.0) Ur Leukocyte Esterase Negative (Negative) Urine RBC 20-30 H (0-5) /hpf Urine WBC 0-5 (0-5) /hpf Ur Squamous Epith Cells 0-5 (0-5) /hpf Urine Bacteria Few (FEW) /hpf Urine Mucus Few (FEW) /hpf Ketones (0.0-0.3) mM SARS-CoV-2 RNA (KIMMY) Negative (NEGATIVE) 09/30/20 Range/Units 12:17 WBC (3.98-10.04) K/mm3 RBC (3.98-5.22) M/mm3 Hgb (11.2-15.7) gm/dl Hct (34.1-44.9) % MCV (79.4-94.8) fl MCH (25.6-32.2) pg MCHC (32.2-35.5) g/dl RDW Std Deviation (36.4-46.3) fL Plt Count (182-369) K/mm3 MPV (9.4-12.3) fl Neut % (Auto) (34.0-71.1) % Lymph % (Auto) (19.3-51.7) % [place] % (Auto) (4.7-12.5) % Eos % (Auto) (0.7-5.8) Baso % (Auto) (0.1-1.2) % Neut # (Auto) (1.56-6.13) K/mm3 Lymph # (Auto) (1.18-3.74) K/mm3 [place] # (Auto) (0.24-0.36) K/mm3 Eos # (Auto) (0.04-0.36) K/mm3 Baso # (Auto) (0.01-0.08) K/mm3 Manual Slide Review PT (9.7-12.0) SECONDS INR APTT (21.7-31.4) SECONDS Sodium (136-145) mEq/L Potassium (3.5-5.1) mEq/L Chloride (98-107) mEq/L Carbon Dioxide (21-32) mEq/L Anion Gap (5-15) BUN (7-18) mg/dL Creatinine (0.55-1.02) mg/dL Est Cr Clr Drug Dosing mL/min Estimated GFR (MDRD) (>60) mL/min BUN/Creatinine Ratio (14-18) Glucose (74-106) mg/dL POC Glucose 179 H (70-105) mg/dL Hemoglobin A1c (4.50-6.20) % Serum Osmolality (280-300) mosm/kg Lactic Acid (0.4-2.0) mmol/L Calcium (8.5-10.1) mg/dL Phosphorus (2.6-4.7) mg/dL Magnesium (1.8-2.4) mg/dl Total Bilirubin (0.2-1.0) mg/dL AST (15-37) U/L ALT (14-59) U/L Alkaline Phosphatase (46-116) U/L Troponin I (0.00-0.056) ng/mL C-Reactive Protein (<1.0) mg/dL NT-Pro-B Natriuret Pep (0-125) pg/mL Total Protein (6.4-8.2) g/dl Albumin (3.4-5.0) g/dl Globulin gm/dL Albumin/Globulin Ratio (1-2) Lipase (73-393) U/L TSH 3rd Generation (0.358-3.74) uIU/mL Urine Color (Yellow) Urine Appearance (Clear) Urine pH (5.0-8.0) Ur Specific [place] (1.005-1.030) Urine Protein (Negative) Urine Glucose (UA) (Negative) Urine Ketones (Negative) Urine Occult Blood (Negative) Urine Nitrite (Negative) Urine Bilirubin (Negative) Urine Urobilinogen (0.2-1.0) Ur Leukocyte Esterase (Negative) Urine RBC (0-5) /hpf Urine WBC (0-5) /hpf Ur Squamous Epith Cells (0-5) /hpf Urine Bacteria (FEW) /hpf Urine Mucus (FEW) /hpf Ketones (0.0-0.3) mM SARS-CoV-2 RNA (KIMMY) (NEGATIVE) Meds: Medications Generic Name Dose Route Start Last Admin Trade Name Freq PRN Reason Stop Dose Admin Lactated Ringer's 1,000 mls @ 999 mls/hr 09/30/20 11:00 09/30/20 11:17 Ringers, Lactated IV 999 mls/hr ASDIRECTED TONIO Administration Potassium Chloride 10 meq/ 100 mls @ 100 mls/hr 09/30/20 12:30 09/30/20 12:34 Premix IV 09/30/20 14:29 100 mls/hr Q1H TONIO Administration Lactated Ringer's 1,000 mls @ 999 mls/hr 09/30/20 12:45 Ringers, Lactated IV ASDIRECTED TONIO Discontinued Medications Generic Name Dose Route Start Last Admin Trade Name Freq PRN Reason Stop Dose Admin Hydromorphone HCl 0.5 mg 09/30/20 11:01 09/30/20 11:17 Dilaudid IVPUSH 09/30/20 11:02 0.5 mg ONETIME ONE Administration Hydromorphone HCl 0.5 mg 09/30/20 12:36 09/30/20 12:39 Dilaudid IVPUSH 09/30/20 12:37 0.5 mg ONETIME ONE Administration Metoclopramide HCl 7.5 mg 09/30/20 11:00 09/30/20 11:17 Reglan IVPUSH 09/30/20 11:01 7.5 mg ONETIME ONE Administration - Radiology Interpretation Free Text/Narrative:: 35-year-old female presents to the ED with a 2-day history of intractable nausea vomiting and one diarrhea stool last evening. Patient is a insulin-dependent diabetic for the last 12 years. She has been taking a dose of insulin usually 2 units almost hourly to keep her blood sugars under control. In spite of this she continues to have developed ketoacidosis with positive ketone testing at home. Here in the ED she has strong smell of ketones on her breath. Afebrile she presents hypertensive. Mildly tachycardic at 110/min. She appears volume depleted. Diffuse abdominal pain without peritoneal signs. Blood sugar at the bedside was 199. - Re-Assessments/Exams Free Text/Narrative Re-Assessment/Exam: 09/30/20 11:27 Chest x-ray reveals moderate hyperinflation of both lungs. No pulmonary infiltrates evident. Cardiac silhouette is normal. There is increased air up under the left hemidiaphragm in the distribution of the Lt hemicolon. Blood pressure is improved but remains elevated at 166 /117. O2 sats 94% on room air. Heart rate 87 and sinus 09/30/20 11:51 Urinalysis shows 3+ proteinuria 1+ glucosuria 3+ ketonuria and 3+ occult blood. Nitrate -2+ bilirubin with urobilinogen measured at 0.2. Le ukocyte esterase is negative. Micro is pending 09/30/20 12:09 White blood cell count is minimally elevated at 10.59. Differential shows 83% neutrophils. Hemoglobin is elevated at 17.4 with a hemat ocrit of 51.3 indicating significant hemoconcentration. Platelet count is normal at 264,000. PT is 11.1 with an INR of 1.04. PTT is 25.3. Sodium was 140 with potassium slightly low at 3.3. Chloride is 96 with a bicarb of 29. Anion gap is elevated at 18.3. BUN is 29 with a creatinine of 1.4. GFR is 43. BUN/creatinine ratio is 20.7. Glucose was 208 in the lab and was 199 in the ED at the bedside. Hemoglobin A1c is 8.0. Lactic acid is elevated at 2.7. She will require a reflex lactic acid check 3 hours from the initial 1. Calcium is 9.8 with a phosphorus level of 4.3. Magnesium is 1.9 liver function is normal troponin I was less than 0.017. C-reactive protein is 0.5. BNP is elevated at 1375 total protein is 7.7 with an albumin fraction of 4.2. TSH is 1.0. Serum ketones are pending. 09/30/20 12:22 Serum ketones are elevated at 2.88. She will be started on a K rider using 10 mill equivalents of potassium every hour x2 hours as potassium level was 3.3. 09/30/20 12:34 Patient continues to have upper abdominal pain with no further vomiting. Remainsstrongly ketotic . Will repeat Dilaudid 0.5mg IV. She is willing to try some water at this time. COVID-19 screen came back negative. The micro on the urinalysis shows 20-30 RBCs per high-power field. No signs of infection. I will discuss case with Dr. Ashton on-call hospitalist with a view to being admitted to the hospital until nausea and vomiting abates and she is able to eat and drink normally. 09/30/20 12:41 [address] did speak with Dr. Ashton and he will admit the patient to the intensive care unit for rehydration, correction of metabolic acidosis and ketosis. Departure - Departure Time of Disposition: 12:46 Disposition: Admitted As Inpatient 65 Condition: Fair Clinical Impression: Hypokalemia, Mild congestive heart failure, Renal insufficiency Diabetic ketoacidosis Qualifiers: Diabetes mellitus type: type 1 Diabetes mellitus complication detail: without coma Qualified Code(s): E10.10 - Type 1 diabetes mellitus with ketoacidosis without coma Nausea and vomiting Qualifiers: Vomiting type: unspecified Vomiting Intractability: non-intractable Qualified Code(s): R11.2 - Nausea with vomiting, unspecified - Discharge Information *PRESCRIPTION DRUG MONITORING PROGRAM REVIEWED*: Not Applicable *COPY OF PRESCRIPTION DRUG MONITORING REPORT IN PATIENT TANNER: Not Applicable Instructions: Steps to Quit Smoking Referrals: Saud Robin MD [Primary Care Provider] - Forms: ED Department Discharge Sepsis Event Note (ED) - Evaluation Sepsis Screening Result: No Definite Risk - Focused Exam Vital Signs: Vital Signs Temp Pulse Resp BP Pulse Ox 09/30/20 10:39 36.8 C 110 H 20 188/129 H 94 L - My Orders Last 24 Hours: My Active Orders 09/30/20 11:00 Lactated Ringers [Ringers, Lactated] 1,000 ml IV ASDIRECTED 09/30/20 11:01 EKG Documentation Completion [RC] STAT Chest 1V Frontal [CR] Stat 09/30/20 11:02 Blood Glucose Check, Bedside [RC] ONETIME Blood Culture x2 Reflex Set [OM.PC] Stat 09/30/20 11:56 CULTURE BLOOD [BC] Stat 09/30/20 12:08 CULTURE BLOOD [BC] Stat 09/30/20 12:30 Potassium Chloride [KCl 10 MEQ in Water 100 ML] 10 meq Premix Bag 1 bag IV Q1H 09/30/20 12:43 Admission Status [Patient Status] [ADT] Routine 09/30/20 12:45 Lactated Ringers [Ringers, Lactated] 1,000 ml IV ASDIRECTED 09/30/20 13:47 LACTIC ACID [CHEM] Stat - Assessment/Plan Last 24 Hours: My Active Orders 09/30/20 11:00 Lactated Ringers [Ringers, Lactated] 1,000 ml IV ASDIRECTED 09/30/20 11:01 EKG Documentation Completion [RC] STAT Chest 1V Frontal [CR] Stat 09/30/20 11:02 Blood Glucose Check, Bedside [RC] ONETIME Blood Culture x2 Reflex Set [OM.PC] Stat 09/30/20 11:56 CULTURE BLOOD [BC] Stat 09/30/20 12:08 CULTURE BLOOD [BC] Stat 09/30/20 12:30 Potassium Chloride [KCl 10 MEQ in Water 100 ML] 10 meq Premix Bag 1 bag IV Q1H 09/30/20 12:43 Admission Status [Patient Status] [ADT] Routine 09/30/20 12:45 Lactated Ringers [Ringers, Lactated] 1,000 ml IV ASDIRECTED 09/30/20 13:47 LACTIC ACID [CHEM] Stat
[2020-09-30] MEDS: Potassium Chloride 10 MEQ in Premix Bag 1 BAG IV SCH ×2 (12:34→13:47)
[2020-09-30] MEDS ORDERED: D5 1/2 NS w/ 20 mEq/L KCl 1,000 ML IV SCH (13:30)
[2020-09-30] MEDS: Nicotine 21 MG/24 Hr Patch TRDERM SCH (13:53)
[2020-09-30] MEDS: Pantoprazole 40 MG Vial IVPUSH SCH (13:53)
[2020-09-30] MEDS: HYDROmorphone 0.5 MG/0.5 ML Syringe IVPUSH PRN ×4 (13:57→21:45)
[2020-09-30] MEDS: Ondansetron 4 MG/2 ML SDV IV PRN ×2 (14:01→19:43)
--- NOTE | 2020-09-30 14:11 | PCM.HP.2 ---
H&P History of Present Illness - General Date of Service: 09/30/20 Admit Problem/Dx: Admission Diagnosis/Problem Admission Diagnosis/Problem Diabetic ketoacidosis - History of Present Illness Initial Comments - Free Text/Narative: 35-year-old female known to the hospital service with current history of DKA and hyperemesis presents to the emergency department with 2 days of recurrent nausea and vomiting. She has been unable to keep anything down except a little bit of water. She has been using approximately 2 units every 1-2 hours to keep her blood sugars controlled. She states that her blood sugars get above 200 now she gets nauseated. At home she apparently used ketone strips and when they were strongly positive for ketones and she was unable to keep anything down she came to the emergency department. She continues to lose weight. She did state that there were some small flecks of blood in her emesis and she had 1 diarrheal stool last night. Small flecks of blood when she vomits repeatedly is not uncommon for her. She does state that she has diffuse abdominal pain especially in the epigastric region. She also takes Suboxone for chronic pain. She has been unable to keep that down for 2 days. In the emergency department her blood pressure was significantly elevated 188/129 with a pulse rate of 110. Blood sugar was 208 with a serum osmolality of 310. proBNP was obtained and was 1375. Ketones were mildly elevated at 2.88 and her hemoglobin A1c was 8.0. Initial lactic acid was 2.7 which dropped below 2 after fluid hydration. She had proteinuria 3+ and 20-30 RBCs in her urine. Patient often has microscopic hematuria when she is ill like this. She was Covid negative. She had a elevated anion gap at 18.3 and acute renal injury with an estimated GFR of 43 and a creatinine of 1.4. Abdominal Pain Score (Numeric/FACES): 9 - Related Data Allergies/Adverse Reactions: Allergies Allergy/AdvReac Type Severity Reaction Status Date / Time latex Allergy Mild Hives Verified 09/30/20 10:42 tramadol Allergy Mild Hives Verified 09/30/20 10:42 purex laundry soap Allergy Mild Hives Uncoded 08/18/20 19:34 Home Medications: Home Meds Buprenorphine HCl/Naloxone HCl [Buprenorp-Nalox 8-2 mg Sl Film] 20 mg SL DAILY 02/29/20 [History] Insulin Aspart [NovoLOG] 2 unit SUBCUT TIDPC #2 pen 04/26/20 [Rx] Pantoprazole [ProTONIX] 40 mg PO BID #60 tab.cr 04/26/20 [Rx] Insulin Degludec [Tresiba] 11 unit SQ DAILY 09/30/20 [History] Past Medical History HEENT History: Reports: Other (See Below) Other HEENT History: dysphagia Cardiovascular History: Reports: Hypertension Respiratory History: Reports: PE Gastrointestinal History: Reports: Chronic Diarrhea, GERD, Irritable Bowel Syndrome Other Gastrointestinal History: diarrhea, nausea, LLQ pain 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 History: Reports: Acute Renal Failure PRODUCTION ROUSTABOUT History: Reports: Endometriosis, Other OB/BYN History: amenorrhea Musculoskeletal History: Reports: Arthritis, Back Pain, Chronic Other Musculoskeletal History: chronic pain Neurological History: Reports: Headaches, Chronic, Migraines, Seizure Other Neuro History: Diabetic seizure Psychiatric History: Reports: Anxiety, Depression Other Psychiatric History: drug use history Endocrine/Metabolic History: Reports: Diabetes, Type I, Hypokalemia Other Endocrine/Metabolic History: hypokalemia. Multiple admissions to the [facility] for diabetic ketoacidosis. 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, MRSA Dermatologic History: Reports: Eczema, Psoriasis - Infectious Disease History Infectious Disease History: Reports: MRSA Other Infectious Disease History: MRSA-2 yrs ago - Past Surgical History GI Surgical History: Reports: Cholecystectomy Other GI Surgeries/Procedures: ileostomy and closure, small bowel resection Social & Family History - Family History Family Medical History: Noncontributory - Tobacco Use Tobacco Use Status *Q: Current Every Day Tobacco User Years of Tobacco use: 15 Packs/Tins Daily: 1 - Caffeine Use Caffeine Use: Reports: None Other Caffeine Use: drinks mellow yellow daily about 3 cans Caffeine Use Comment: unable to assess and verify for now due to condition - Recreational Drug Use Recreational Drug Use: Yes Drug Use in Last 12 Months: Yes Recreational 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 Exam - Exam Exam: See Below - Vital Signs Vital Signs: Last Vital Signs Temp 98.3 F 09/30/20 10:39 Pulse 110 H 09/30/20 10:39 Resp 20 09/30/20 10:39 BP 188/129 H 09/30/20 10:39 Pulse Ox 94 L 09/30/20 10:39 Weight: 50.53 kg - Exam Quality Assessment: Other (When I saw her in the ICU she was comfortable and talking to the nurse.). No: Supplemental Oxygen General: Alert, Oriented, 4 HEENT: Conjunctiva Clear, Hearing Intact, Mucosa Moist & [place], Normal Nasal Septum Neck: Supple, Trachea Midline, 2 Lungs: Clear to Auscultation, Normal Respiratory Effort Cardiovascular: Regular Rate, Regular Rhythm GI/Abdominal Exam: Normal Bowel Sounds, Soft, Non-Tender, No Organomegaly, No D istention, No Abnormal Bruit, No Mass Back Exam: Normal Inspection Extremities: Normal Inspection, Normal Range of Motion, Non-Tender, No Pedal Edema, Normal Capillary Refill Peripheral Pulses: 2+: Posterior Tibial (L), Posterior Tibial (R), Dorsalis Pedis (L), Dorsalis Pedis (R) Skin: Warm, Dry, Intact Neurological: Cranial Nerves Intact, Reflexes Equal Bilateral Neuro Extensive - Mental Status: Alert, Oriented x3, Normal Mood/Affect, Normal Cognition, Memory Intact Psychiatric: Alert, Normal Affect, Normal Mood - Patient Data Lab Results Last 24 hrs: Laboratory Results - last 24 hr 09/30/20 09/30/20 09/30/20 Range/Units 10:39 10:47 10:47 WBC 10.59 H (3.98-10.04) K/mm3 RBC 5.90 H (3.98-5.22) M/mm3 Hgb 17.4 H D (11.2-15.7) gm/dl Hct 51.3 H (34.1-44.9) % MCV 86.9 D (79.4-94.8) fl MCH 29.5 (25.6-32.2) pg MCHC 33.9 (32.2-35.5) g/dl RDW Std Deviation 42.4 (36.4-46.3) fL Plt Count 264 (182-369) K/mm3 MPV 9.9 (9.4-12.3) fl Neut % (Auto) 83.1 H (34.0-71.1) % Lymph % (Auto) 13.1 L (19.3-51.7) % [place] % (Auto) 3.4 L (4.7-12.5) % Eos % (Auto) 0.1 L (0.7-5.8) Baso % (Auto) 0.2 (0.1-1.2) % Neut # (Auto) 8.80 H (1.56-6.13) K/mm3 Lymph # (Auto) 1.39 (1.18-3.74) K/mm3 [place] # (Auto) 0.36 (0.24-0.36) K/mm3 Eos # (Auto) 0.01 L (0.04-0.36) K/mm3 Baso # (Auto) 0.02 (0.01-0.08) K/mm3 Manual Slide Review Abnormal smear PT 11.1 (9.7-12.0) SECONDS INR 1.04 APTT 25.3 (21.7-31.4) SECONDS Sodium (136-145) mEq/L Potassium (3.5-5.1) mEq/L Chloride (98-107) mEq/L Carbon Dioxide (21-32) mEq/L Anion Gap (5-15) BUN (7-18) mg/dL Creatinine (0.55-1.02) mg/dL Est Cr Clr Drug Dosing mL/min Estimated GFR (MDRD) (>60) mL/min BUN/Creatinine Ratio (14-18) Glucose (74-106) mg/dL POC Glucose 199 H (70-105) mg/dL Hemoglobin A1c (4.50-6.20) % Serum Osmolality (280-300) mosm/kg Lactic Acid (0.4-2.0) mmol/L Calcium (8.5-10.1) mg/dL Phosphorus (2.6-4.7) mg/dL Magnesium (1.8-2.4) mg/dl Total Bilirubin (0.2-1.0) mg/dL AST (15-37) U/L ALT (14-59) U/L Alkaline Phosphatase (46-116) U/L Troponin I (0.00-0.056) ng/mL C-Reactive Protein (<1.0) mg/dL NT-Pro-B Natriuret Pep (0-125) pg/mL Total Protein (6.4-8.2) g/dl Albumin (3.4-5.0) g/dl Globulin gm/dL Albumin/Globulin Ratio (1-2) Lipase (73-393) U/L TSH 3rd Generation (0.358-3.74) uIU/mL Urine Color (Yellow) Urine Appearance (Clear) Urine pH (5.0-8.0) Ur Specific [place] (1.005-1.030) Urine Protein (Negative) Urine Glucose (UA) (Negative) Urine Ketones (Negative) Urine Occult Blood (Negative) Urine Nitrite (Negative) Urine Bilirubin (Negative) Urine Urobilinogen (0.2-1.0) Ur Leukocyte Esterase (Negative) Urine RBC (0-5) /hpf Urine WBC (0-5) /hpf Ur Squamous Epith Cells (0-5) /hpf Urine Bacteria (FEW) /hpf Urine Mucus (FEW) /hpf Ketones (0.0-0.3) mM SARS-CoV-2 RNA (KIMMY) (NEGATIVE) 09/30/20 09/30/20 09/30/20 Range/Units 10:47 10:47 10:47 WBC (3.98-10.04) K/mm3 RBC (3.98-5.22) M/mm3 Hgb (11.2-15.7) gm/dl Hct (34.1-44.9) % MCV (79.4-94.8) fl MCH (25.6-32.2) pg MCHC (32.2-35.5) g/dl RDW Std Deviation (36.4-46.3) fL Plt Count (182-369) K/mm3 MPV (9.4-12.3) fl Neut % (Auto) (34.0-71.1) % Lymph % (Auto) (19.3-51.7) % [place] % (Auto) (4.7-12.5) % Eos % (Auto) (0.7-5.8) Baso % (Auto) (0.1-1.2) % Neut # (Auto) (1.56-6.13) K/mm3 Lymph # (Auto) (1.18-3.74) K/mm3 [place] # (Auto) (0.24-0.36) K/mm3 Eos # (Auto) (0.04-0.36) K/mm3 Baso # (Auto) (0.01-0.08) K/mm3 Manual Slide Review PT (9.7-12.0) SECONDS INR APTT (21.7-31.4) SECONDS Sodium 140 (136-145) mEq/L Potassium 3.3 L (3.5-5.1) mEq/L Chloride 96 L (98-107) mEq/L Carbon Dioxide 29 (21-32) mEq/L Anion Gap 18.3 H (5-15) BUN 29 H (7-18) mg/dL Creatinine 1.4 H (0.55-1.02) mg/dL Est Cr Clr Drug Dosing 49.72 mL/min Estimated GFR (MDRD) 43 (>60) mL/min BUN/Creatinine Ratio 20.7 H (14-18) Glucose 208 H (74-106) mg/dL POC Glucose (70-105) mg/dL Hemoglobin A1c (4.50-6.20) % Serum Osmolality 310 H (280-300) mosm/kg Lactic Acid (0.4-2.0) mmol/L Calcium 9.8 (8.5-10.1) mg/dL Phosphorus 4.3 (2.6-4.7) mg/dL Magnesium 1.9 (1.8-2.4) mg/dl Total Bilirubin 0.7 (0.2-1.0) mg/dL AST 13 L (15-37) U/L ALT 23 (14-59) U/L Alkaline Phosphatase 84 (46-116) U/L Troponin I < 0.017 (0.00-0.056) ng/mL C-Reactive Protein 0.5 (<1.0) mg/dL NT-Pro-B Natriuret Pep 1375 H (0-125) pg/mL Total Protein 7.7 (6.4-8.2) g/dl Albumin 4.2 (3.4-5.0) g/dl Globulin 3.5 gm/dL Albumin/Globulin Ratio 1.2 (1-2) Lipase (73-393) U/L TSH 3rd Generation (0.358-3.74) uIU/mL Urine Color (Yellow) Urine Appearance (Clear) Urine pH (5.0-8.0) Ur Specific [place] (1.005-1.030) Urine Protein (Negative) Urine Glucose (UA) (Negative) Urine Ketones (Negative) Urine Occult Blood (Negative) Urine Nitrite (Negative) Urine Bilirubin (Negative) Urine Urobilinogen (0.2-1.0) Ur Leukocyte Esterase (Negative) Urine RBC (0-5) /hpf Urine WBC (0-5) /hpf Ur Squamous Epith Cells (0-5) /hpf Urine Bacteria (FEW) /hpf Urine Mucus (FEW) /hpf Ketones 2.88 (0.0-0.3) mM SARS-CoV-2 RNA (KIMMY) (NEGATIVE) 09/30/20 09/30/20 09/30/20 Range/Units 10:47 10:47 10:47 WBC (3.98-10.04) K/mm3 RBC (3.98-5.22) M/mm3 Hgb (11.2-15.7) gm/dl Hct (34.1-44.9) % MCV (79.4-94.8) fl MCH (25.6-32.2) pg MCHC (32.2-35.5) g/dl RDW Std Deviation (36.4-46.3) fL Plt Count (182-369) K/mm3 MPV (9.4-12.3) fl Neut % (Auto) (34.0-71.1) % Lymph % (Auto) (19.3-51.7) % [place] % (Auto) (4.7-12.5) % Eos % (Auto) (0.7-5.8) Baso % (Auto) (0.1-1.2) % Neut # (Auto) (1.56-6.13) K/mm3 Lymph # (Auto) (1.18-3.74) K/mm3 [place] # (Auto) (0.24-0.36) K/mm3 Eos # (Auto) (0.04-0.36) K/mm3 Baso # (Auto) (0.01-0.08) K/mm3 Manual Slide Review PT (9.7-12.0) SECONDS INR APTT (21.7-31.4) SECONDS Sodium (136-145) mEq/L Potassium (3.5-5.1) mEq/L Chloride (98-107) mEq/L Carbon Dioxide (21-32) mEq/L Anion Gap (5-15) BUN (7-18) mg/dL Creatinine (0.55-1.02) mg/dL Est Cr Clr Drug Dosing mL/min Estimated GFR (MDRD) (>60) mL/min BUN/Creatinine Ratio (14-18) Glucose (74-106) mg/dL POC Glucose (70-105) mg/dL Hemoglobin A1c 8.00 H (4.50-6.20) % Serum Osmolality (280-300) mosm/kg Lactic Acid 2.7 H* (0.4-2.0) mmol/L Calcium (8.5-10.1) mg/dL Phosphorus (2.6-4.7) mg/dL Magnesium (1.8-2.4) mg/dl Total Bilirubin (0.2-1.0) mg/dL AST (15-37) U/L ALT (14-59) U/L Alkaline Phosphatase (46-116) U/L Troponin I (0.00-0.056) ng/mL C-Reactive Protein (<1.0) mg/dL NT-Pro-B Natriuret Pep (0-125) pg/mL Total Protein (6.4-8.2) g/dl Albumin (3.4-5.0) g/dl Globulin gm/dL Albumin/Globulin Ratio (1-2) Lipase (73-393) U/L TSH 3rd Generation 1.001 (0.358-3.74) uIU/mL Urine Color (Yellow) Urine Appearance (Clear) Urine pH (5.0-8.0) Ur Specific [place] (1.005-1.030) Urine Protein (Negative) Urine Glucose (UA) (Negative) Urine Ketones (Negative) Urine Occult Blood (Negative) Urine Nitrite (Negative) Urine Bilirubin (Negative) Urine Urobilinogen (0.2-1.0) Ur Leukocyte Esterase (Negative) Urine RBC (0-5) /hpf Urine WBC (0-5) /hpf Ur Squamous Epith Cells (0-5) /hpf Urine Bacteria (FEW) /hpf Urine Mucus (FEW) /hpf Ketones (0.0-0.3) mM SARS-CoV-2 RNA (KIMMY) (NEGATIVE) 09/30/20 09/30/20 09/30/20 Range/Units 10:47 11:20 11:20 WBC (3.98-10.04) K/mm3 RBC (3.98-5.22) M/mm3 Hgb (11.2-15.7) gm/dl Hct (34.1-44.9) % MCV (79.4-94.8) fl MCH (25.6-32.2) pg MCHC (32.2-35.5) g/dl RDW Std Deviation (36.4-46.3) fL Plt Count (182-369) K/mm3 MPV (9.4-12.3) fl Neut % (Auto) (34.0-71.1) % Lymph % (Auto) (19.3-51.7) % [place] % (Auto) (4.7-12.5) % Eos % (Auto) (0.7-5.8) Baso % (Auto) (0.1-1.2) % Neut # (Auto) (1.56-6.13) K/mm3 Lymph # (Auto) (1.18-3.74) K/mm3 [place] # (Auto) (0.24-0.36) K/mm3 Eos # (Auto) (0.04-0.36) K/mm3 Baso # (Auto) (0.01-0.08) K/mm3 Manual Slide Review PT (9.7-12.0) SECONDS INR APTT (21.7-31.4) SECONDS Sodium (136-145) mEq/L Potassium (3.5-5.1) mEq/L Chloride (98-107) mEq/L Carbon Dioxide (21-32) mEq/L Anion Gap (5-15) BUN (7-18) mg/dL Creatinine (0.55-1.02) mg/dL Est Cr Clr Drug Dosing mL/min Estimated GFR (MDRD) (>60) mL/min BUN/Creatinine Ratio (14-18) Glucose (74-106) mg/dL POC Glucose (70-105) mg/dL Hemoglobin A1c (4.50-6.20) % Serum Osmolality (280-300) mosm/kg Lactic Acid (0.4-2.0) mmol/L Calcium (8.5-10.1) mg/dL Phosphorus (2.6-4.7) mg/dL Magnesium (1.8-2.4) mg/dl Total Bilirubin (0.2-1.0) mg/dL AST (15-37) U/L ALT (14-59) U/L Alkaline Phosphatase (46-116) U/L Troponin I (0.00-0.056) ng/mL C-Reactive Protein (<1.0) mg/dL NT-Pro-B Natriuret Pep (0-125) pg/mL Total Protein (6.4-8.2) g/dl Albumin (3.4-5.0) g/dl Globulin gm/dL Albumin/Globulin Ratio (1-2) Lipase 32 L (73-393) U/L TSH 3rd Generation (0.358-3.74) uIU/mL Urine Color Yellow (Yellow) Urine Appearance Clear (Clear) Urine pH 6.0 (5.0-8.0) Ur Specific [place] > or = 1.030 (1.005-1.030) Urine Protein 3+ H (Negative) Urine Glucose (UA) 1+ H (Negative) Urine Ketones 3+ H (Negative) Urine Occult Blood 3+ H (Negative) Urine Nitrite Negative (Negative) Urine Bilirubin 2+ H (Negative) Urine Urobilinogen 0.2 (0.2-1.0) Ur Leukocyte Esterase Negative (Negative) Urine RBC 20-30 H (0-5) /hpf Urine WBC 0-5 (0-5) /hpf Ur Squamous Epith Cells 0-5 (0-5) /hpf Urine Bacteria Few (FEW) /hpf Urine Mucus Few (FEW) /hpf Ketones (0.0-0.3) mM SARS-CoV-2 RNA (KIMMY) Negative (NEGATIVE) 09/30/20 Range/Units 12:17 WBC (3.98-10.04) K/mm3 RBC (3.98-5.22) M/mm3 Hgb (11.2-15.7) gm/dl Hct (34.1-44.9) % MCV (79.4-94.8) fl MCH (25.6-32.2) pg MCHC (32.2-35.5) g/dl RDW Std Deviation (36.4-46.3) fL Plt Count (182-369) K/mm3 MPV (9.4-12.3) fl Neut % (Auto) (34.0-71.1) % Lymph % (Auto) (19.3-51.7) % [place] % (Auto) (4.7-12.5) % Eos % (Auto) (0.7-5.8) Baso % (Auto) (0.1-1.2) % Neut # (Auto) (1.56-6.13) K/mm3 Lymph # (Auto) (1.18-3.74) K/mm3 [place] # (Auto) (0.24-0.36) K/mm3 Eos # (Auto) (0.04-0.36) K/mm3 Baso # (Auto) (0.01-0.08) K/mm3 Manual Slide Review PT (9.7-12.0) SECONDS INR APTT (21.7-31.4) SECONDS Sodium (136-145) mEq/L Potassium (3.5-5.1) mEq/L Chloride (98-107) mEq/L Carbon Dioxide (21-32) mEq/L Anion Gap (5-15) BUN (7-18) mg/dL Creatinine (0.55-1.02) mg/dL Est Cr Clr Drug Dosing mL/min Estimated GFR (MDRD) (>60) mL/min BUN/Creatinine Ratio (14-18) Glucose (74-106) mg/dL POC Glucose 179 H (70-105) mg/dL Hemoglobin A1c (4.50-6.20) % Serum Osmolality (280-300) mosm/kg Lactic Acid (0.4-2.0) mmol/L Calcium (8.5-10.1) mg/dL Phosphorus (2.6-4.7) mg/dL Magnesium (1.8-2.4) mg/dl Total Bilirubin (0.2-1.0) mg/dL AST (15-37) U/L ALT (14-59) U/L Alkaline Phosphatase (46-116) U/L Troponin I (0.00-0.056) ng/mL C-Reactive Protein (<1.0) mg/dL NT-Pro-B Natriuret Pep (0-125) pg/mL Total Protein (6.4-8.2) g/dl Albumin (3.4-5.0) g/dl Globulin gm/dL Albumin/Globulin Ratio (1-2) Lipase (73-393) U/L TSH 3rd Generation (0.358-3.74) uIU/mL Urine Color (Yellow) Urine Appearance (Clear) Urine pH (5.0-8.0) Ur Specific [place] (1.005-1.030) Urine Protein (Negative) Urine Glucose (UA) (Negative) Urine Ketones (Negative) Urine Occult Blood (Negative) Urine Nitrite (Negative) Urine Bilirubin (Negative) Urine Urobilinogen (0.2-1.0) Ur Leukocyte Esterase (Negative) Urine RBC (0-5) /hpf Urine WBC (0-5) /hpf Ur Squamous Epith Cells (0-5) /hpf Urine Bacteria (FEW) /hpf Urine Mucus (FEW) /hpf Ketones (0.0-0.3) mM SARS-CoV-2 RNA (KIMMY) (NEGATIVE) Result Diagrams: 09/30/20 10:47 09/30/20 18:05 Sepsis Event Note - Evaluation Sepsis Screening Result: No Definite Risk - Focused Exam Vital Signs: Vital Signs Temp Pulse Resp BP Pulse Ox 09/30/20 10:39 98.3 F 110 H 20 188/129 H 94 L - Problem List (1) Diabetic ketoacidosis SNOMED Code(s): 290055176, 117032432 ICD Code: E11.10 - TYPE 2 DIABETES MELLITUS WITH KETOACIDOSIS WITHOUT COMA Status: Acute Priority: High Current Visit: Yes Qualifiers: Diabetes mellitus type: type 1 Diabetes mellitus complication detail: without coma Qualified Code(s): E10.10 - Type 1 diabetes mellitus with ketoacidosis without coma (2) Nausea and vomiting SNOMED Code(s): 52061334 ICD Code: R11.2 - NAUSEA WITH VOMITING, UNSPECIFIED Status: Acute Priority: High Current Visit: Yes Qualifiers: Vomiting type: unspecified Vomiting Intractability: non-intractable Qualified Code(s): R11.2 - Nausea with vomiting, unspecified (3) Renal insufficiency SNOMED Code(s): 729105621, 594311636 ICD Code: N28.9 - DISORDER OF KIDNEY AND URETER, UNSPECIFIED Status: Acute Current Visit: Yes (4) High anion gap metabolic acidosis SNOMED Code(s): 99343883 ICD Code: E87.2 - ACIDOSIS Status: Acute Priority: High Current Visit: No (5) Acute kidney injury SNOMED Code(s): 17957479, 51045160 ICD Code: N17.9 - ACUTE KIDNEY FAILURE, UNSPECIFIED Status: Resolved Priority: High Current Visit: No Problem List Initiated/Reviewed/Updated: Yes Orders Last 24hrs: Active Orders 24 hr Category Date Time Status Admission Status [Patient Status] [ADT] Routine ADT 09/30/20 12:43 Active Blood Glucose Check, Bedside [RC] Q2HR Care 09/30/20 11:02 Active EKG Documentation Completion [RC] STAT Care 09/30/20 11:01 Active Oxygen Therapy [RC] PRN Care 09/30/20 13:21 Active Up ad Brittany [RC] ASDIRECTED Care 09/30/20 13:20 Active VTE/DVT Education [RC] PER UNIT ROUTINE Care 09/30/20 13:21 Active Vital Signs [RC] Q4H Care 09/30/20 13:21 Active Nothing per Oral Now Diet [DIET] Diet 09/30/20 Dinner Active Chest 1V Frontal [CR] Stat Exams 09/30/20 11:01 Taken BASIC METABOLIC PANEL,BMP [CHEM] Q4H Lab 09/30/20 13:52 Received BASIC METABOLIC PANEL,BMP [CHEM] Q4H Lab 09/30/20 18:00 Ordered BASIC METABOLIC PANEL,BMP [CHEM] Q4H Lab 09/30/20 22:00 Ordered CULTURE BLOOD [BC] Stat Lab 09/30/20 11:56 Received CULTURE BLOOD [BC] Stat Lab 09/30/20 12:08 Received LACTIC ACID [CHEM] Timed Lab 09/30/20 13:52 Received D5 1/2 NS w/ 20 mEq/L KCl 1,000 ml Med 09/30/20 13:30 Active IV ASDIRECTED Enoxaparin [Lovenox] Med 10/01/20 09:00 Active 40 mg SUBCUT DAILY HYDROmorphone [Dilaudid] Med 09/30/20 13:20 Active 0.5 mg IVPUSH Q2H PRN Nicotine [Habitrol] Med 09/30/20 13:30 Active 21 mg TRDERM DAILY Ondansetron [Zofran] Med 09/30/20 13:20 Active 4 mg IV Q4H PRN Pantoprazole [ProTONIX IV] Med 09/30/20 13:45 Active 40 mg IVPUSH Q12HR Potassium Chloride [KCl 10 MEQ in Water 100 ML] 10 meq Med 09/30/20 12:30 Active Premix Bag 1 bag IV Q1H Remove Patch Med 09/30/20 21:00 Active 1 ea TRDERM BEDTIME Blood Culture x2 Reflex Set [OM.PC] Stat Oth 09/30/20 11:02 Ordered Resuscitation Status Routine Resus Stat 09/30/20 13:20 Ordered Medication Orders Enoxaparin Sodium (Lovenox) 40 mg SUBCUT DAILY TONIO Hydromorphone HCl (Dilaudid) 0.5 mg IVPUSH Q2H PRN PRN Reason: Pain (severe 7-10) Last Admin: 09/30/20 13:57 Dose: 0.5 mg Documented by: LYUDMILA Potassium Chloride 10 meq/ (Premix) 100 mls @ 100 mls/hr IV Q1H TONIO Stop: 09/30/20 14:29 Last Admin: 09/30/20 13:47 Dose: 100 mls/hr Documented by: Infusion: 09/30/20 13:34 Dose: 100 mls/hr Documented by: Admin: 09/30/20 12:34 Dose: 100 mls/hr Documented by: NAS Potassium Chloride/Dextrose/Sod Cl (D5 1/2 Ns W/ 20 Meq/L Kcl) 1,000 mls @ 150 mls/hr IV ASDIRECTED TONIO Last Admin: 09/30/20 13:45 Dose: 150 mls/hr Documented by: LYUDMILA Miscellaneous Information (Remove Patch) 1 ea TRDERM BEDTIME TONIO Nicotine (Habitrol) 21 mg TRDERM DAILY TONIO Last Admin: 09/30/20 13:53 Dose: 21 mg Documented by: LYUDMILA Ondansetron HCl (Zofran) 4 mg IV Q4H PRN PRN Reason: Nausea/Vomiting Last Admin: 09/30/20 14:01 Dose: 4 mg Documented by: LYUDMILA Pantoprazole Sodium (Protonix Iv) 40 mg IVPUSH Q12HR TONIO Last Admin: 09/30/20 13:53 Dose: 40 mg Documented by: LYUDMILA Assessment/Plan Comment:: Assessment * 35-year-old female with recurrent nausea and vomiting and diabetic ketoacidosis. Patient has had multiple admissions for similar issues in the last 2 years. Patient is better control with her blood sugars today and likely her acidosis is more secondary to her lactic acidosis from hypovolemia than from her diabetic ketoacidosis. She only had a small amount of ketones. She states that her primary care doctor put her on Cozaar for her blood pressure, but she feels it was because she had an episode like this when he saw her and she does not really have an elevated blood pressure. It appears that she does have an elevated blood pressure at rest and at also proteinuria with renal insufficiency. She would likely benefit from the Cozaar. * Diabetic renal disease with acute renal injury from hypovolemia and diabetic ketoacidosis * Elevated proBNP of 1375. Patient does not have any signs of ashwini CHF. I doubt this is clinically significant. * Patient did have fluid rehydration and given subcu insulin in the emergency department. Plan * Admit the patient to ICU * Fingerstick blood sugars every 2 hours with sliding scale insulin. * Start D5 half-normal saline with 20 mEq of KCl at 150 mL an hour to correct anion gap and hypovolemia. * When anion gap closes switch to normal saline with 20 of KCl at 100 mL an hour and start patient back on a diabetic diet if she is able to take orally. * When taking orally switch back to home insulin dose. * DVT prophylaxis with Lovenox. * CODE STATUS: Full code * I would recommend that she start Cozaar when her kidney function is stabilized and her hypovolemia has resolved. * Plan discharge in 1 to 2 days. - Mortality Measure Prognosis:: Good
[2020-09-30] MEDS ORDERED: 50% Dextrose in Water 50 ML Syringe IV PRN ×4 (14:51→19:39)
[2020-09-30] MEDS: Insulin Lispro 100 Units/ML 3 ML Vial SUBCUT SCH ×3 (15:24→21:32)
[2020-09-30] MEDS ORDERED: Insulin Lispro 100 Units/ML 3 ML Vial SUBCUT SCH ×2 (16:00→19:15)
[2020-09-30] MEDS ORDERED: Insulin Glarg,Human.Rec.Analog 100 Unit/ML SUBCUT SCH (19:45)
[2020-09-30] MEDS: NS + KCl 20mEq/L 1,000 ML IV SCH (20:01)
[2020-09-30] MEDS: traZODone 50 MG Tab PO PRN (22:07)
[2020-10-01] MEDS: Pantoprazole 40 MG Vial IVPUSH SCH ×2 (00:13→08:01)
[2020-10-01] MEDS: HYDROmorphone 0.5 MG/0.5 ML Syringe IVPUSH PRN ×11 (00:19→22:35)
[2020-10-01] MEDS: traZODone 50 MG Tab PO PRN ×2 (00:22→21:49)
[2020-10-01] MEDS: Ondansetron 4 MG/2 ML SDV IV PRN ×4 (04:12→17:00)
[2020-10-01] MEDS: NS + KCl 20mEq/L 1,000 ML IV SCH ×2 (05:01→14:43)
[2020-10-01] MEDS: Insulin Lispro 100 Units/ML 3 ML Vial SUBCUT SCH ×7 (06:55→21:17)
[2020-10-01] MEDS: Enoxaparin 40 MG/0.4 ML Syringe SUBCUT SCH (08:01)
[2020-10-01] MEDS: Nicotine 21 MG/24 Hr Patch TRDERM SCH (08:01)
[2020-10-01] MEDS: Losartan 25 MG Tab PO SCH (08:39)
[2020-10-01] MEDS ORDERED: hydrALAZINE 20 MG/ML SDV IVPUSH ONE (10:29)
[2020-10-01] MEDS ORDERED: BUPRENORPHINE HCL SL SCH ×2 (13:45→21:00)
[2020-10-01] MEDS ORDERED: NALOXONE HCL SL SCH ×2 (13:45→21:00)
--- NOTE | 2020-10-01 19:13 | PCM.PN ---
- General Info Date of Service: 10/01/20 Admission Dx/Problem (Free Text): Admission Diagnosis/Problem Admission Diagnosis/Problem Diabetic ketoacidosis Subjective Update: Patient continues to improve. She continues to have some nausea and abdominal pain. She is able to tolerate her diet. Functional Status: Reports: Pain Controlled - Review of Systems General: Reports: No Symptoms HEENT: Reports: No Symptoms Pulmonary: Reports: No Symptoms Cardiovascular: Reports: No Symptoms Gastrointestinal: Reports: No Symptoms Musculoskeletal: Reports: No Symptoms Psychiatric: Reports: No Symptoms - Patient Data Vitals - Most Recent: Last Vital Signs Temp 98.1 F 10/01/20 16:00 Pulse 95 10/01/20 16:00 Resp 18 10/01/20 16:00 BP 132/94 H 10/01/20 16:00 Pulse Ox 96 10/01/20 16:00 Weight - Most Recent: 112 lb I&O - Last 24 Hours: Intake & Output 10/01/20 10/01/20 10/01/20 06:59 14:59 22:59 Intake Total 0 1158 Output Total 600 Balance 0 558 Lab Results Last 24 Hours: Laboratory Results - last 24 hr 09/30/20 10/01/20 10/01/20 Range/Units 21:31 04:10 04:10 WBC 8.57 (3.98-10.04) K/mm3 RBC 4.66 (3.98-5.22) M/mm3 Hgb 13.6 D (11.2-15.7) gm/dl Hct 41.8 (34.1-44.9) % MCV 89.7 (79.4-94.8) fl MCH 29.2 (25.6-32.2) pg MCHC 32.5 (32.2-35.5) g/dl RDW Std Deviation 42.3 (36.4-46.3) fL Plt Count 231 (182-369) K/mm3 MPV 10.0 (9.4-12.3) fl Neut % (Auto) 46.4 (34.0-71.1) % Lymph % (Auto) 45.9 (19.3-51.7) % Perkins % (Auto) 6.0 (4.7-12.5) % Eos % (Auto) 1.1 (0.7-5.8) Baso % (Auto) 0.5 (0.1-1.2) % Neut # (Auto) 3.99 (1.56-6.13) K/mm3 Lymph # (Auto) 3.93 H (1.18-3.74) K/mm3 Perkins # (Auto) 0.51 H (0.24-0.36) K/mm3 Eos # (Auto) 0.09 (0.04-0.36) K/mm3 Baso # (Auto) 0.04 (0.01-0.08) K/mm3 Sodium 142 (136-145) mEq/L Potassium 3.7 (3.5-5.1) mEq/L Chloride 105 (98-107) mEq/L Carbon Dioxide 32 (21-32) mEq/L Anion Gap 8.7 (5-15) BUN 15 (7-18) mg/dL Creatinine 1.0 (0.55-1.02) mg/dL Est Cr Clr Drug Dosing 62.37 mL/min Estimated GFR (MDRD) > 60 (>60) mL/min BUN/Creatinine Ratio 15.0 (14-18) Glucose 98 (74-106) mg/dL POC Glucose 155 H (70-105) mg/dL Calcium 8.9 (8.5-10.1) mg/dL Phosphorus 3.1 (2.6-4.7) mg/dL Magnesium 1.8 (1.8-2.4) mg/dl Total Bilirubin 0.6 (0.2-1.0) mg/dL AST 12 L (15-37) U/L ALT 17 (14-59) U/L Alkaline Phosphatase 60 (46-116) U/L Total Protein 5.8 L (6.4-8.2) g/dl Albumin 3.2 L (3.4-5.0) g/dl Globulin 2.6 gm/dL Albumin/Globulin Ratio 1.2 (1-2) 10/01/20 10/01/20 10/01/20 Range/Units 06:04 06:53 10:40 WBC (3.98-10.04) K/mm3 RBC (3.98-5.22) M/mm3 Hgb (11.2-15.7) gm/dl Hct (34.1-44.9) % MCV (79.4-94.8) fl MCH (25.6-32.2) pg MCHC (32.2-35.5) g/dl RDW Std Deviation (36.4-46.3) fL Plt Count (182-369) K/mm3 MPV (9.4-12.3) fl Neut % (Auto) (34.0-71.1) % Lymph % (Auto) (19.3-51.7) % Perkins % (Auto) (4.7-12.5) % Eos % (Auto) (0.7-5.8) Baso % (Auto) (0.1-1.2) % Neut # (Auto) (1.56-6.13) K/mm3 Lymph # (Auto) (1.18-3.74) K/mm3 Perkins # (Auto) (0.24-0.36) K/mm3 Eos # (Auto) (0.04-0.36) K/mm3 Baso # (Auto) (0.01-0.08) K/mm3 Sodium (136-145) mEq/L Potassium (3.5-5.1) mEq/L Chloride (98-107) mEq/L Carbon Dioxide (21-32) mEq/L Anion Gap (5-15) BUN (7-18) mg/dL Creatinine (0.55-1.02) mg/dL Est Cr Clr Drug Dosing mL/min Estimated GFR (MDRD) (>60) mL/min BUN/Creatinine Ratio (14-18) Glucose (74-106) mg/dL POC Glucose 112 H 117 H 94 (70-105) mg/dL Calcium (8.5-10.1) mg/dL Phosphorus (2.6-4.7) mg/dL Magnesium (1.8-2.4) mg/dl Total Bilirubin (0.2-1.0) mg/dL AST (15-37) U/L ALT (14-59) U/L Alkaline Phosphatase (46-116) U/L Total Protein (6.4-8.2) g/dl Albumin (3.4-5.0) g/dl Globulin gm/dL Albumin/Globulin Ratio (1-2) 10/01/20 10/01/20 10/01/20 Range/Units 14:12 16:37 18:35 WBC (3.98-10.04) K/mm3 RBC (3.98-5.22) M/mm3 Hgb (11.2-15.7) gm/dl Hct (34.1-44.9) % MCV (79.4-94.8) fl MCH (25.6-32.2) pg MCHC (32.2-35.5) g/dl RDW Std Deviation (36.4-46.3) fL Plt Count (182-369) K/mm3 MPV (9.4-12.3) fl Neut % (Auto) (34.0-71.1) % Lymph % (Auto) (19.3-51.7) % Perkins % (Auto) (4.7-12.5) % Eos % (Auto) (0.7-5.8) Baso % (Auto) (0.1-1.2) % Neut # (Auto) (1.56-6.13) K/mm3 Lymph # (Auto) (1.18-3.74) K/mm3 Perkins # (Auto) (0.24-0.36) K/mm3 Eos # (Auto) (0.04-0.36) K/mm3 Baso # (Auto) (0.01-0.08) K/mm3 Sodium (136-145) mEq/L Potassium (3.5-5.1) mEq/L Chloride (98-107) mEq/L Carbon Dioxide (21-32) mEq/L Anion Gap (5-15) BUN (7-18) mg/dL Creatinine (0.55-1.02) mg/dL Est Cr Clr Drug Dosing mL/min Estimated GFR (MDRD) (>60) mL/min BUN/Creatinine Ratio (14-18) Glucose (74-106) mg/dL POC Glucose 167 H 149 H 190 H (70-105) mg/dL Calcium (8.5-10.1) mg/dL Phosphorus (2.6-4.7) mg/dL Magnesium (1.8-2.4) mg/dl Total Bilirubin (0.2-1.0) mg/dL AST (15-37) U/L ALT (14-59) U/L Alkaline Phosphatase (46-116) U/L Total Protein (6.4-8.2) g/dl Albumin (3.4-5.0) g/dl Globulin gm/dL Albumin/Globulin Ratio (1-2) Charles Results Last 24 Hours: Microbiology 09/30/20 12:08 Aerobic Blood Culture - Preliminary Blood - Venous - Lab Draw NO GROWTH AFTER 1 DAY Anaerobic Blood Culture - Preliminary NO GROWTH AFTER 1 DAY 09/30/20 11:56 Aerobic Blood Culture - Preliminary Blood - Venous NO GROWTH AFTER 1 DAY Anaerobic Blood Culture - Preliminary NO GROWTH AFTER 1 DAY Med Orders - Current: Current Medications Dextrose/Water (Dextrose 50% In Water) 50 ml IV ASDIRECTED PRN PRN Reason: Hypoglycemia Enoxaparin Sodium (Lovenox) 40 mg SUBCUT DAILY [facility] Last Admin: 10/01/20 08:01 Dose: 40 mg Documented by: Hydromorphone HCl (Dilaudid) 0.5 mg IVPUSH Q2H PRN PRN Reason: Pain (severe 7-10) Last Admin: 10/01/20 18:27 Dose: 0.5 mg Documented by: Potassium Chloride/Sodium Chloride (Normal Saline With 20 Meq Kcl) 1,000 mls @ 100 mls/hr IV ASDIRECTED [facility] Last Admin: 10/01/20 14:43 Dose: 100 mls/hr Documented by: Insulin Glargine (Lantus) 11 unit SUBCUT Q24H [facility] Insulin Human Lispro (Humalog) 2 unit SUBCUT TIDPC [facility] Last Admin: 10/01/20 18:36 Dose: 2 units Documented by: Insulin Human Lispro (Humalog) 0 unit SUBCUT QIDACANDBED [facility]; Protocol Last Admin: 10/01/20 16:38 Dose: Not Given Documented by: Losartan Potassium (Cozaar) 50 mg PO DAILY [facility] Last Admin: 10/01/20 08:39 Dose: 50 mg Documented by: Miscellaneous Information (Remove Patch) 1 ea TRDERM BEDTIME [facility] Last Admin: 09/30/20 20:08 Dose: Not Given Documented by: Nicotine (Habitrol) 21 mg TRDERM DAILY [facility] Last Admin: 10/01/20 08:01 Dose: 21 mg Documented by: Buprenorphine Hcl/Naloxone Hcl ( Buprenorp-Nalox 8-2 Mg Sl) 1 mg SL DAILY [facility] Last Admin: 10/01/20 14:41 Dose: 1 mg Documented by: Buprenorphine Hcl/Naloxone Hcl ( Buprenorp-Nalox 8-2 Mg Sl) 1.5 mg SL BEDTIME TONIO Ondansetron HCl (Zofran) 4 mg IV Q4H PRN PRN Reason: Nausea/Vomiting Last Admin: 10/01/20 17:00 Dose: 4 mg Documented by: Pantoprazole Sodium (Protonix) 40 mg PO BID TONIO Trazodone HCl (Trazodone) 50 mg PO BEDTIME PRN PRN Reason: Insomnia Last Admin: 10/01/20 00:22 Dose: 50 mg Documented by: Discontinued Medications Dextrose/Water (Dextrose 50% In Water) 50 ml IV ASDIRECTED PRN PRN Reason: Hypoglycemia Dextrose/Water (Dextrose 50% In Water) 50 ml IV ASDIRECTED PRN PRN Reason: Hypoglycemia Dextrose/Water (Dextrose 50% In Water) 50 ml IV ASDIRECTED PRN PRN Reason: Hypoglycemia Hydralazine HCl (Apresoline) 10 mg IVPUSH ONETIME ONE Stop: 10/01/20 10:30 Last Admin: 10/01/20 10:35 Dose: 10 mg Documented by: Hydromorphone HCl (Dilaudid) 0.5 mg IVPUSH ONETIME ONE Stop: 09/30/20 11:02 Last Admin: 09/30/20 11:17 Dose: 0.5 mg Documented by: Hydromorphone HCl (Dilaudid) 0.5 mg IVPUSH ONETIME ONE Stop: 09/30/20 12:37 Last Admin: 09/30/20 12:39 Dose: 0.5 mg Documented by: Lactated Ringer's (Ringers, Lactated) 1,000 mls @ 999 mls/hr IV ASDIRECTED [facility] Last Admin: 09/30/20 11:17 Dose: 999 mls/hr Documented by: Potassium Chloride 10 meq/ (Premix) 100 mls @ 100 mls/hr IV Q1H [facility] Stop: 09/30/20 14:29 Last Admin: 09/30/20 13:47 Dose: 100 mls/hr Documented by: Lactated Ringer's (Ringers, Lactated) 1,000 mls @ 999 mls/hr IV ASDIRECTED [facility] Potassium Chloride/Dextrose/Sod Cl (D5 1/2 Ns W/ 20 Meq/L Kcl) 1,000 mls @ 150 mls/hr IV ASDIRECTED [facility] Last Admin: 09/30/20 13:45 Dose: 150 mls/hr Documented by: Insulin Glargine (Lantus) 11 unit SUBCUT Q24H [facility] Last Admin: 09/30/20 20:05 Dose: 11 units Documented by: Insulin Human Lispro (Humalog) 0 unit SUBCUT BIDAC [facility]; Protocol Insulin Human Lispro (Humalog) 0 unit SUBCUT Q2H [facility]; Protocol Last Admin: 09/30/20 17:15 Dose: 2 units Documented by: Insulin Human Lispro (Humalog) 0 unit SUBCUT Q2H [facility]; Protocol Last Admin: 09/30/20 19:38 Dose: 3 units Documented by: Metoclopramide HCl (Reglan) 7.5 mg IVPUSH ONETIME ONE Stop: 09/30/20 11:01 Last Admin: 09/30/20 11:17 Dose: 7.5 mg Documented by: Pantoprazole Sodium (Protonix Iv) 40 mg IVPUSH Q12HR [facility] Last Admin: 10/01/20 08:01 Dose: 40 mg Documented by: - Exam Quality Assessment: No: Supplemental Oxygen General: Alert, Oriented HEENT: Pupils Equal, Mucous Membr. Moist/[place] Neck: Supple Lungs: Clear to Auscultation, Normal Respiratory Effort Cardiovascular: Regular Rhythm, Tachycardia GI/Abdominal Exam: Normal Bowel Sounds, Soft, Tender Extremities: Normal Inspection, Normal Range of Motion, Non-Tender, No Pedal Edema, Normal Capillary Refill Skin: Warm, Dry, Intact Neurological: No New Focal Deficit Psy/Mental Status: Alert, Normal Affect, Normal Mood Sepsis Event Note - Evaluation Sepsis Screening Result: No Definite Risk - Focused Exam Vital Signs: Vital Signs Temp Pulse Resp BP BP Pulse Ox 10/01/20 16:00 98.1 F 95 18 132/94 H 96 10/01/20 12:00 97.1 F 100 18 146/97 H 95 10/01/20 10:40 180/110 H 10/01/20 10:36 81 212/121 H 10/01/20 09:11 86 169/114 H 10/01/20 08:39 194/120 H 10/01/20 08:15 88 176/104 H 10/01/20 08:03 80 181/115 H 10/01/20 07:55 96.9 F 80 15 116/92 H 98 - Problem List & Annotations (1) Diabetic ketoacidosis SNOMED Code(s): 979605687, 987809898 Code(s): E11.10 - TYPE 2 DIABETES MELLITUS WITH KETOACIDOSIS WITHOUT COMA Status: Acute Priority: High Qualifiers: Diabetes mellitus type: type 1 Diabetes mellitus complication detail: without coma Qualified Code(s): E10.10 - Type 1 diabetes mellitus with ketoacidosis without coma (2) Nausea and vomiting SNOMED Code(s): 40177040 Code(s): R11.2 - NAUSEA WITH VOMITING, UNSPECIFIED Status: Acute Priority: High Qualifiers: Vomiting type: unspecified Vomiting Intractability: non-intractable Qualified Code(s): R11.2 - Nausea with vomiting, unspecified (3) Renal insufficiency SNOMED Code(s): 394422045, 343937345 Code(s): N28.9 - DISORDER OF KIDNEY AND URETER, UNSPECIFIED Status: Acute (4) High anion gap metabolic acidosis SNOMED Code(s): 84412286 Code(s): E87.2 - ACIDOSIS Status: Acute Priority: High (5) Acute kidney injury SNOMED Code(s): 31819121, 97893758 Code(s): N17.9 - ACUTE KIDNEY FAILURE, UNSPECIFIED Status: Resolved Priority: High - Problem List Review Problem List Initiated/Reviewed/Updated: Yes - My Orders Last 24 Hours: My Active Orders 09/30/20 19:39 Blood Glucose Check, Bedside [RC] QIDACANDBED Dextrose 50% in Water 50 ml IV ASDIRECTED PRN 09/30/20 19:45 NS + KCl 20mEq/L [Normal Saline with 20 mEq KCl] 1,000 ml IV ASDIRECTED 09/30/20 21:00 Remove Patch 1 ea TRDERM BEDTIME 09/30/20 21:40 traZODone 50 mg PO BEDTIME PRN 09/30/20 22:00 Insulin Lispro [HumaLOG] See Protocol SUBCUT QIDACANDBED 10/01/20 09:00 Enoxaparin [Lovenox] 40 mg SUBCUT DAILY Insulin Lispro [HumaLOG] 2 unit SUBCUT TIDPC Losartan [Cozaar] 50 mg PO DAILY 10/01/20 13:45 Buprenorphine HCl/Naloxone HCl [Buprenorp-Nalox 8-2 mg Sl Film] 1 mg SL DAILY 10/01/20 21:00 Buprenorphine Hcl/Naloxone Hcl [Buprenorp-Nalox 8-2 Mg Sl Film] 1.5 mg SL BEDTIME Insulin Glarg,Human.Rec.Analog [LantUS] 11 unit SUBCUT Q24H Pantoprazole [ProTONIX] 40 mg PO BID - Plan Plan:: Assessment 09/30/2020 * 35-year-old female with recurrent nausea and vomiting and diabetic ketoacidosis. Patient has had multiple admissions for similar issues in the last 2 years. Patient is better control with her blood sugars today and likely her acidosis is more secondary to her lactic acidosis from hypovolemia than from her diabetic ketoacidosis. She only had a small amount of ketones. She states that her primary care doctor put her on Cozaar for her blood pressure, but she feels it was because she had an episode like this when he saw her and she does not really have an elevated blood pressure. It appears that she does have an elevated blood pressure at rest and at also proteinuria with renal insufficiency. She would likely benefit from the Cozaar. * Diabetic renal disease with acute renal injury from hypovolemia and diabetic ketoacidosis * Elevated proBNP of 1375. Patient does not have any signs of ashwini CHF. I doubt this is clinically significant. * Patient did have fluid rehydration and given subcu insulin in the emergency department. 10/01/2020 * Diabetic ketoacidosis * Nausea and vomitingrecurrent * Hypertension * Diabetic kidney disease * Acute renal injury Patient is doing much better. She is back on her regular insulin profile. She is not quite eating as well as I would like and she continues to be symptomatic. We will keep her 1 more day to monitor her closely. Stop IV fluids. Plan * Admit the patient to ICU * Fingerstick blood sugars every 2 hours with sliding scale insulin. * Stop IV fluids * Home insulin * Ondansetron for nausea * Start Cozaar 50 mg daily * DVT prophylaxis with Lovenox. * CODE STATUS: Full code * Plan discharge tomorrow.
[2020-10-01] MEDS: Pantoprazole 40 MG Tab.CR PO SCH (20:26)
[2020-10-01] MEDS ORDERED: Insulin Glarg,Human.Rec.Analog 100 Unit/ML SUBCUT SCH (21:00)
[2020-10-02] MEDS: HYDROmorphone 0.5 MG/0.5 ML Syringe IVPUSH PRN ×2 (01:28→06:34)
[2020-10-02] MEDS: Insulin Lispro 100 Units/ML 3 ML Vial SUBCUT SCH ×3 (06:30→11:16)
[2020-10-02] MEDS: Losartan 25 MG Tab PO SCH (08:12)
[2020-10-02] MEDS: Nicotine 21 MG/24 Hr Patch TRDERM SCH (08:12)
[2020-10-02] MEDS: Enoxaparin 40 MG/0.4 ML Syringe SUBCUT SCH ×2 (08:13→08:15)
[2020-10-02] MEDS: Pantoprazole 40 MG Tab.CR PO SCH (08:13)
[2020-10-02] MEDS ORDERED: NALOXONE HCL SL SCH ×2 (08:18→09:00)
[2020-10-02] MEDS ORDERED: BUPRENORPHINE HCL SL SCH ×2 (08:18→09:00)
--- NOTE | 2020-10-02 09:40 | CR ---
PROCEDURE INFORMATION: Exam: XR Chest, 1 View Exam date and time: 09/30/2020 10:59 AM Age: 35 years old Clinical indication: Other: Diabetic ketoacidosis TECHNIQUE: Imaging protocol: XR of the chest Views: 1 view. COMPARISON: CR Chest 1V Frontal 08/18/2020 11:05 PM FINDINGS: Lungs: Unremarkable. No consolidation. Pleural space: Unremarkable. No pleural effusion. No pneumothorax. Heart/Mediastinum: Unremarkable. No cardiomegaly. Bones/joints: Unremarkable. IMPRESSION: No acute findings. Thank you for allowing us to participate in the care of your patient. Dictated and Authenticated by: Manuel Porter MD 09/30/2020 12:23 PM Central Time ([place] & You) [place]
--- NOTE | 2020-10-02 21:51 | PCM.DCSUM1 ---
Discharge Summary - Hospital Course HPI Initial Comments: 35-year-old female known to the hospital service with current history of DKA and hyperemesis presents to the emergency department with 2 days of recurrent nausea and vomiting. She has been unable to keep anything down except a little bit of water. She has been using approximately 2 units every 1-2 hours to keep her blood sugars controlled. She states that her blood sugars get above 200 now she gets nauseated. At home she apparently used ketone strips and when they were strongly positive for ketones and she was unable to keep anything down she came to the emergency department. She continues to lose weight. She did state that there were some small flecks of blood in her emesis and she had 1 diarrheal stool last night. Small flecks of blood when she vomits repeatedly is not uncommon for her. She does state that she has diffuse abdominal pain especially in the epigastric region. She also takes Suboxone for chronic pain. She has been unable to keep that down for 2 days. In the emergency department her blood pressure was significantly elevated 188/129 with a pulse rate of 110. Blood sugar was 208 with a serum osmolality of 310. proBNP was obtained and was 1375. Ketones were mildly elevated at 2.88 and her hemoglobin A1c was 8.0. Initial lactic acid was 2.7 which dropped below 2 after fluid hydration. She had proteinuria 3+ and 20-30 RBCs in her urine. Patient often has microscopic hematuria when she is ill like this. She was Covid negative. She had a elevated anion gap at 18.3 and acute renal injury with an estimated GFR of 43 and a creatinine of 1.4. Assessment * 35-year-old female with recurrent nausea and vomiting and diabetic ketoacidosis. Patient has had multiple admissions for similar issues in the last 2 years. Patient is better control with her blood sugars today and l ikely her acidosis is more secondary to her lactic acidosis from hypovolemia than from her diabetic ketoacidosis. She only had a small amount of ketones. She states that her primary care doctor put her on Cozaar for her blood pressure, but she feels it was because she had an episode like this when he saw her and she does not really have an elevated blood pressure. It appears that she does have an elevated blood pressure at rest and at also proteinuria with renal insufficiency. She would likely benefit from the Cozaar. * Diabetic renal disease with acute renal injury from hypovolemia and diabetic ketoacidosis * Elevated proBNP of 1375. Patient does not have any signs of ashwini CHF. I doubt this is clinically significant. * Patient did have fluid rehydration and given subcu insulin in the emergency department. Plan * Admit the patient to ICU * Fingerstick blood sugars every 2 hours with sliding scale insulin. * Start D5 half-normal saline with 20 mEq of KCl at 150 mL an hour to correct anion gap and hypovolemia. * When anion gap closes switch to normal saline with 20 of KCl at 100 mL an hour and start patient back on a diabetic diet if she is able to take orally. * When taking orally switch back to home insulin dose. * DVT prophylaxis with Lovenox. * CODE STATUS: Full code * I would recommend that she start Cozaar when her kidney function is stabilized and her hypovolemia has resolved. * Plan discharge in 1 to 2 days. Diagnosis: Stroke: No - Discharge Data Discharge Date: 10/02/20 Discharge Disposition: Home, Self-Care 01 Condition: Good - Referral to Home Health Primary Care Physician: Saud Robin MD - Discharge Diagnosis/Problem(s) (1) Diabetic ketoacidosis SNOMED Code(s): 149100865, 110780393 ICD Code: E11.10 - TYPE 2 DIABETES MELLITUS WITH KETOACIDOSIS WITHOUT COMA Status: Acute Priority: High Qualifiers: Diabetes mellitus type: type 1 Diabetes mellitus complication detail: without coma Qualified Code(s): E10.10 - Type 1 diabetes mellitus with ketoacidosis without coma (2) Nausea and vomiting SNOMED Code(s): 85731606 ICD Code: R11.2 - NAUSEA WITH VOMITING, UNSPECIFIED Status: Acute Priority: High Qualifiers: Vomiting type: unspecified Vomiting Intractability: non-intractable Qualified Code(s): R11.2 - Nausea with vomiting, unspecified (3) Renal insufficiency SNOMED Code(s): 113139944, 683307273 ICD Code: N28.9 - DISORDER OF KIDNEY AND URETER, UNSPECIFIED Status: Resolved (4) High anion gap metabolic acidosis SNOMED Code(s): 64490228 ICD Code: E87.2 - ACIDOSIS Status: Acute Priority: High (5) Acute kidney injury SNOMED Code(s): 35192674, 51396735 ICD Code: N17.9 - ACUTE KIDNEY FAILURE, UNSPECIFIED Status: Deleted Priority: High (6) Proteinuria due to type 1 diabetes mellitus SNOMED Code(s): 383982843024147 ICD Code: E10.29 - TYPE 1 DIABETES MELLITUS W OTH DIABETIC KIDNEY COMPLICATION; R80.9 - PROTEINURIA, UNSPECIFIED Status: Acute - Patient Instructions Diet: Diabetic Diet Driving: May Drive Today Showering/Bathing: May Shower Other/Special Instructions: Follow up with PCP and perinatal educator next week. - Discharge Plan *PRESCRIPTION DRUG MONITORING PROGRAM REVIEWED*: Not Applicable *COPY OF PRESCRIPTION DRUG MONITORING REPORT IN PATIENT TANNER: Not Applicable Home Medications: Home Meds Buprenorphine HCl/Naloxone HCl [Buprenorp-Nalox 8-2 mg Sl Film] 20 mg SL DAILY 02/29/20 [History] Insulin Aspart [NovoLOG] 2 unit SUBCUT TIDPC #2 pen 04/26/20 [Rx] Pantoprazole [ProTONIX] 40 mg PO BID #60 tab.cr 04/26/20 [Rx] Insulin Degludec [Tresiba] 11 unit SQ DAILY 09/30/20 [History] Losartan [Cozaar] 50 mg PO DAILY tablet 10/02/20 [Rx] Nicotine [Habitrol] 21 mg TRDERM DAILY patch 10/02/20 [Rx] Oxygen Therapy Mode: Room Air Patient Handouts: Heart Failure Action Plan, Diabetic Ketoacidosis, What You Need to Know About Marijuana Use, Living With Heart Failure, Steps to Quit Smoking Forms: ED Department Discharge Referrals: Saud Robin MD [Primary Care Provider] - - Discharge Summary/Plan Comment DC Time >30 min.: Yes Discharge Summary/Plan Comment: Discharged home in good condition. Follow-up with primary care provider and perinatal educator next week. - General Info Date of Service: 10/02/20 Admission Dx/Problem (Free Text: Admission Diagnosis/Problem Admission Diagnosis/Problem Diabetic ketoacidosis Subjective Update: Patient is doing well today. Tolerating diet well. Blood sugars are well controlled. Functional Status: Reports: Pain Controlled - Review of Systems General: Reports: No Symptoms HEENT: Reports: No Symptoms Pulmonary: Reports: No Symptoms Cardiovascular: Reports: No Symptoms Gastrointestinal: Reports: No Symptoms Musculoskeletal: Reports: No Symptoms - Patient Data Vitals - Most Recent: Last Vital Signs Temp 98.2 F 10/02/20 08:00 Pulse 66 10/02/20 07:00 Resp 19 10/02/20 08:00 BP 149/100 H 10/02/20 08:12 Pulse Ox 98 10/02/20 08:00 Weight - Most Recent: 112 lb I&O - Last 24 hours: Intake & Output 10/02/20 10/02/20 10/02/20 06:59 14:59 22:59 Intake Total 1615 Output Total 300 Balance 1315 Lab Results - Last 24 hrs: Laboratory Results - last 24 hr 10/02/20 10/02/20 10/02/20 Range/Units 06:26 09:47 10:20 POC Glucose 89 118 H (70-105) mg/dL Urine Color Yellow (Yellow) Urine Appearance Clear (Clear) Urine pH 6.0 (5.0-8.0) Ur Specific [place] > or = 1.030 (1.005-1.030) Urine Protein 2+ H (Negative) Urine Glucose (UA) Negative (Negative) Urine Ketones 1+ H (Negative) Urine Occult Blood 3+ H (Negative) Urine Nitrite Negative (Negative) Urine Bilirubin Negative (Negative) Urine Urobilinogen 0.2 (0.2-1.0) Ur Leukocyte Esterase Negative (Negative) Urine RBC 0-5 (0-5) /hpf Urine WBC 0-5 (0-5) /hpf Ur Squamous Epith Cells 0-5 (0-5) /hpf Urine Bacteria Rare (FEW) /hpf Urine Mucus Not seen (FEW) /hpf 10/02/20 Range/Units 11:15 POC Glucose 124 H (70-105) mg/dL Urine Color (Yellow) Urine Appearance (Clear) Urine pH (5.0-8.0) Ur Specific [place] (1.005-1.030) Urine Protein (Negative) Urine Glucose (UA) (Negative) Urine Ketones (Negative) Urine Occult Blood (Negative) Urine Nitrite (Negative) Urine Bilirubin (Negative) Urine Urobilinogen (0.2-1.0) Ur Leukocyte Esterase (Negative) Urine RBC (0-5) /hpf Urine WBC (0-5) /hpf Ur Squamous Epith Cells (0-5) /hpf Urine Bacteria (FEW) /hpf Urine Mucus (FEW) /hpf BEBE Results - Last 24 hrs: Microbiology 09/30/20 12:08 Aerobic Blood Culture - Preliminary Blood - Venous - Lab Draw NO GROWTH AFTER 2 DAYS Anaerobic Blood Culture - Preliminary NO GROWTH AFTER 2 DAYS 09/30/20 11:56 Aerobic Blood Culture - Preliminary Blood - Venous NO GROWTH AFTER 2 DAYS Anaerobic Blood Culture - Preliminary NO GROWTH AFTER 2 DAYS Med Orders - Current: Current Medications Discontinued Medications Dextrose/Water (Dextrose 50% In Water) 50 ml IV ASDIRECTED PRN PRN Reason: Hypoglycemia Dextrose/Water (Dextrose 50% In Water) 50 ml IV ASDIRECTED PRN PRN Reason: Hypoglycemia Dextrose/Water (Dextrose 50% In Water) 50 ml IV ASDIRECTED PRN PRN Reason: Hypoglycemia Dextrose/Water (Dextrose 50% In Water) 50 ml IV ASDIRECTED PRN PRN Reason: Hypoglycemia Enoxaparin Sodium (Lovenox) 40 mg SUBCUT DAILY [facility] Last Admin: 10/02/20 08:15 Dose: Not Given Documented by: Hydralazine HCl (Apresoline) 10 mg IVPUSH ONETIME ONE Stop: 10/01/20 10:30 Last Admin: 10/01/20 10:35 Dose: 10 mg Documented by: Hydromorphone HCl (Dilaudid) 0.5 mg IVPUSH ONETIME ONE Stop: 09/30/20 11:02 Last Admin: 09/30/20 11:17 Dose: 0.5 mg Documented by: Hydromorphone HCl (Dilaudid) 0.5 mg IVPUSH ONETIME ONE Stop: 09/30/20 12:37 Last Admin: 09/30/20 12:39 Dose: 0.5 mg Documented by: Hydromorphone HCl (Dilaudid) 0.5 mg IVPUSH Q2H PRN PRN Reason: Pain (severe 7-10) Last Admin: 10/02/20 06:34 Dose: 0.5 mg Documented by: Lactated Ringer's (Ringers, Lactated) 1,000 mls @ 999 mls/hr IV ASDIRECTED TONIO Last Admin: 09/30/20 11:17 Dose: 999 mls/hr Documented by: Potassium Chloride 10 meq/ (Premix) 100 mls @ 100 mls/hr IV Q1H TONIO Stop: 09/30/20 14:29 Last Admin: 09/30/20 13:47 Dose: 100 mls/hr Documented by: Lactated Ringer's (Ringers, Lactated) 1,000 mls @ 999 mls/hr IV ASDIRECTED [facility] Potassium Chloride/Dextrose/Sod Cl (D5 1/2 Ns W/ 20 Meq/L Kcl) 1,000 mls @ 150 mls/hr IV ASDIRECTED [facility] Last Admin: 09/30/20 13:45 Dose: 150 mls/hr Documented by: Potassium Chloride/Sodium Chloride (Normal Saline With 20 Meq Kcl) 1,000 mls @ 100 mls/hr IV ASDIRECTED [facility] Last Admin: 10/01/20 14:43 Dose: 100 mls/hr Documented by: Insulin Glargine (Lantus) 11 unit SUBCUT Q24H [facility] Last Admin: 09/30/20 20:05 Dose: 11 units Documented by: Insulin Glargine (Lantus) 11 unit SUBCUT Q24H [facility] Last Admin: 10/01/20 20:33 Dose: 11 units Documented by: Insulin Human Lispro (Humalog) 0 unit SUBCUT BIDAC [facility]; Protocol Insulin Human Lispro (Humalog) 0 unit SUBCUT Q2H [facility]; Protocol Last Admin: 09/30/20 17:15 Dose: 2 units Documented by: Insulin Human Lispro (Humalog) 0 unit SUBCUT Q2H [facility]; Protocol Last Admin: 09/30/20 19:38 Dose: 3 units Documented by: Insulin Human Lispro (Humalog) 2 unit SUBCUT TIDPC [facility] Last Admin: 10/02/20 10:17 Dose: Not Given Documented by: Insulin Human Lispro (Humalog) 0 unit SUBCUT QIDACANDBED [facility]; Protocol Last Admin: 10/02/20 11:16 Dose: Not Given Documented by: Losartan Potassium (Cozaar) 50 mg PO DAILY [facility] Last Admin: 10/02/20 08:12 Dose: 50 mg Documented by: Metoclopramide HCl (Reglan) 7.5 mg IVPUSH ONETIME ONE Stop: 09/30/20 11:01 Last Admin: 09/30/20 11:17 Dose: 7.5 mg Documented by: Miscellaneous Information (Remove Patch) 1 ea TRDERM BEDTIME [facility] Last Admin: 10/01/20 20:28 Dose: Not Given Documented by: Nicotine (Habitrol) 21 mg TRDERM DAILY [facility] Last Admin: 10/02/20 08:12 Dose: 21 mg Documented by: Buprenorphine Hcl/Naloxone Hcl ( Buprenorp-Nalox 8-2 Mg Sl) 1 mg SL DAILY [facility] Last Admin: 10/01/20 14:41 Dose: 1 mg Documented by: Buprenorphine Hcl/Naloxone Hcl ( Buprenorp-Nalox 8-2 Mg Sl) 1.5 mg SL BEDTIME [facility] Last Admin: 10/01/20 20:29 Dose: 1.5 mg Documented by: Buprenorphine Hcl/Naloxone Hcl ( Buprenorp-Nalox 8-2 Mg Sl) 0 mg SL DAILY [facility] Last Admin: 10/02/20 08:13 Dose: 1 mg Documented by: Buprenorphine Hcl/Naloxone Hcl ( Buprenorp-Nalox 8-2 Mg Sl) 0 mg SL BEDTIME [facility] Ondansetron HCl (Zofran) 4 mg IV Q4H PRN PRN Reason: Nausea/Vomiting Last Admin: 10/01/20 17:00 Dose: 4 mg Documented by: Pantoprazole Sodium (Protonix Iv) 40 mg IVPUSH Q12HR [facility] Last Admin: 10/01/20 08:01 Dose: 40 mg Documented by: Pantoprazole Sodium (Protonix) 40 mg PO BID [facility] Last Admin: 10/02/20 08:13 Dose: 40 mg Documented by: Trazodone HCl (Trazodone) 50 mg PO BEDTIME PRN PRN Reason: Insomnia Last Admin: 10/01/20 21:49 Dose: 50 mg Documented by: - Exam General: Reports: Alert, Oriented HEENT: Reports: Pupils Equal, Mucous Membr. Moist/[place] Neck: Reports: Supple Lungs: Reports: Clear to Auscultation, Normal Respiratory Effort Cardiovascular: Reports: Regular Rate, Regular Rhythm GI/Abdominal Exam: Normal Bowel Sounds, Soft, Non-Tender, No Distention Back Exam: Reports: Normal Inspection Extremities: Normal Inspection, Normal Range of Motion, Non-Tender, No Pedal Edema, Normal Capillary Refill Skin: Reports: Warm, Dry, Intact Psy/Mental Status: Reports: Alert, Normal Affect, Normal Mood
== END 2020-10-02 12:54 | disposition home or self-care (01) | DRG 638 ==
LOC: JD.ED 10:32 → JD.ICU 12:43
PROVIDERS: ADMIT Family Medicine; ATTEND Family Medicine
DX: E10.10 Type 1 diabetes mellitus with ketoacidosis without coma (principal); E87.6 Hypokalemia; N17.9 Acute kidney failure, unspecified; N28.9 Disorder of kidney and ureter, unspecified; R13.10 Dysphagia, unspecified; R31.9 Hematuria, unspecified; Z86.711 Personal history of pulmonary embolism; K52.9 Noninfective gastroenteritis and colitis, unspecified; K58.0 Irritable bowel syndrome with diarrhea; K21.9 Gastro-esophageal reflux disease without esophagitis; N91.2 Amenorrhea, unspecified; M54.9 Dorsalgia, unspecified; F31.9 Bipolar disorder, unspecified; M19.90 Unspecified osteoarthritis, unspecified site; G89.29 Other chronic pain; L40.9 Psoriasis, unspecified; F41.9 Anxiety disorder, unspecified; F32.9 Major depressive disorder, single episode, unspecified; F12.90 Cannabis use, unspecified, uncomplicated; E86.1 Hypovolemia; F17.200 Nicotine dependence, unspecified, uncomplicated; F17.210 Nicotine dependence, cigarettes, uncomplicated; I50.9 Heart failure, unspecified; I11.0 Hypertensive heart disease with heart failure; Z20.828 Contact with and (suspected) exposure to other viral communicable diseases; Z91.040 Latex allergy status; Z86.69 Personal history of other diseases of the nervous system and sense organs; Z86.39 Personal history of other endocrine, nutritional and metabolic disease; Z92.89 Personal history of other medical treatment; Z86.14 Personal history of Methicillin resistant Staphylococcus aureus infection; Z79.4 Long term (current) use of insulin; Z86.718 Personal history of other venous thrombosis and embolism; Z90.49 Acquired absence of other specified parts of digestive tract; Z88.8 Allergy status to other drugs, medicaments and biological substances; Z91.048 Other nonmedicinal substance allergy status; Z79.899 Other long term (current) drug therapy
CPT/HCPCS: 36415; 71045; 80053; 81001; 82009; 82962 ×2; 83036; 83605; 83690; 83735; 83880; 83930; 84100; 84443; 84484; 85025; 85610; 85730; 86140; 87040 ×2; 87635; 93005; J1170 ×2; J2765; J3480; J7120; 80048; 87641; 96374; 96375; 96376; 99285-25; A9270-GY; C9113; J0360; J1650; J1815-GY; J2405; U0002

== ENCOUNTER 2020-11-23 15:54 | Emergency (ER) | payer MEDICAID ==
[2020-11-23] MEDS ORDERED: Sodium Chloride 0.9% 10 ML Syringe FLUSH PRN (16:13)
[2020-11-23] MEDS ORDERED: Ondansetron 4 MG/2 ML SDV IVPUSH ONE (16:35)
[2020-11-23] MEDS ORDERED: Sodium Chloride 0.9% 1,000 ML IV STA (16:35)
[2020-11-23] MEDS ORDERED: HYDROmorphone 0.5 MG/0.5 ML Syringe IVPUSH ONE (16:35)
--- NOTE | 2020-11-23 17:25 | EDM.PDOC ---
ED HPI GENERAL MEDICAL PROBLEM - General Chief Complaint: Diabetic Complaint Stated Complaint: DIABETIC COMPLAINT Time Seen by Provider: 11/23/20 16:09 Source of Information: Reports: Patient, RN Notes Reviewed History Limitations: Reports: No Limitations - History of Present Illness INITIAL COMMENTS - FREE TEXT/NARRATIVE: Patient is a 35-year-old female presenting to the emergency department with complaints of nausea, vomiting, abdominal cramping which began last evening. She is concerned that she is in DKA. She is type I diabetic and also has a history of gastroparesis which causes chronic nausea and vomiting for her. She takes Reglan 5 mg twice daily but states she has been able to keep it down. She is moving her bowels. States that her blood sugars have been greater than 500, however she was able to get it down to 200 prior to coming here. She denies any fever or chills. Upper Abdomen Pain Score (Numeric/FACES): 8 - Related Data Allergies Allergy/AdvReac Type Severity Reaction Status Date / Time latex Allergy Severe Hives Verified 11/23/20 16:07 tramadol Allergy Severe Hives Verified 11/23/20 16:07 purex laundry soap Allergy Severe Hives Uncoded 11/23/20 16:07 Home Meds: Home Meds Buprenorphine HCl/Naloxone HCl [Buprenorp-Nalox 8-2 mg Sl Film] 20 mg SL DAILY 02/29/20 [History] Insulin Aspart [NovoLOG] 2 unit SUBCUT TIDPC #2 pen 04/26/20 [Rx] Pantoprazole [ProTONIX] 40 mg PO BID #60 tab.cr 04/26/20 [Rx] Insulin Degludec [Tresiba] 11 unit SQ DAILY 09/30/20 [History] Losartan [Cozaar] 50 mg PO DAILY tablet 10/02/20 [Rx] Nicotine [Habitrol] 21 mg TRDERM DAILY patch 10/02/20 [Rx] Metoclopramide HCl [Reglan] 5 mg PO BID 11/23/20 [History] Past Medical History HEENT History: Reports: Other (See Below) Other HEENT History: dysphagia Cardiovascular History: Reports: Hypertension Respiratory History: Reports: PE Gastrointestinal History: Reports: Chronic Diarrhea, GERD, Irritable Bowel Synd sathya Other Gastrointestinal History: diarrhea, nausea, LLQ pain 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 History: Reports: Acute Renal Failure 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: Reports: Endometriosis, Other 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: amenorrhea Musculoskeletal History: Reports: Arthritis, Back Pain, Chronic Other Musculoskeletal History: chronic pain Neurological History: Reports: Headaches, Chronic, Migraines, Seizure Other Neuro History: Diabetic seizure Psychiatric History: Reports: Anxiety, Depression Other Psychiatric History: drug use history Endocrine/Metabolic History: Reports: Diabetes, Type I, Hypokalemia Other Endocrine/Metabolic History: hypokalemia 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 - Past Surgical History GI Surgical History: Reports: Cholecystectomy Other GI Surgeries/Procedures: ileostomy and closure, small bowel resection Female Surgical History: Reports: D&C Endocrine Surgical History: Reports: None Musculoskeletal Surgical History: Reports: None Social & Family History - Family History Family Medical History: No Pertinent Family History - Tobacco Use Tobacco Use Status *Q: Current Every Day Tobacco User Years of Tobacco use: 20 Packs/Tins Daily: 1 - Caffeine Use Caffeine Use: Reports: None Other Caffeine Use: drinks mellow yellow daily about 3 cans Caffeine Use Comment: unable to assess and verify for now due to condition - Recreational Drug Use Recreational Drug Type: Reports: Marijuana/Hashish - Living Situation & Occupation Living situation: Reports: Single, with Family Occupation: Unemployed ED ROS GENERAL - Review of Systems Review Of Systems: See Below Constitutional: Reports: No Symptoms. Denies: Fever, Chills, Weakness HEENT: Reports: No Symptoms Respiratory: Reports: No Symptoms Cardiovascular: Reports: No Symptoms Endocrine: Reports: High Glucose GI/Abdominal: Reports: Abdominal Pain (Generalized cramping), Nausea, Vomiting : Reports: No Symptoms Musculoskeletal: Reports: No Symptoms Skin: Reports: No Symptoms Neurological: Reports: No Symptoms Psychiatric: Reports: No Symptoms Hematologic/Lymphatic: Reports: No Symptoms Immunologic: Reports: No Symptoms ED EXAM, GI/ABD - Physical Exam Exam: See Below Exam Limited By: No Limitations General Appearance: Alert, WD/WN, No Apparent Distress Respiratory/Chest: No Respiratory Distress, Lungs Clear, Normal Breath Sounds, No Accessory Muscle Use, Chest Non-Tender Cardiovascular: Normal Peripheral Pulses, Regular Rate, Rhythm, No Edema, No Gallop, No JVD, No Murmur, No Rub GI/Abdominal Exam: Normal Bowel Sounds, Soft, No Organomegaly, No Distention, No Abnormal Bruit, No Mass, Pelvis Stable, Tender (Mild generalized throughout) Neurological: Alert, Oriented, CN II-XII Intact, Normal Cognition, Normal Gait, Normal Reflexes, No Motor/Sensory Deficits Psychiatric: Normal Affect, Normal Mood Skin Exam: Warm, Dry, Intact, Normal Color, No Rash Course - Vital Signs Last Recorded V/S: Last Vital Signs Temp 99.4 F 11/23/20 16:03 Pulse 83 11/23/20 16:03 Resp 16 11/23/20 16:03 BP 177/117 H 11/23/20 16:03 Pulse Ox 97 11/23/20 16:03 - Orders/Labs/Meds Orders: Active Orders 24 hr Category Date Time Status Peripheral IV Care [RC] . DIRECTED Care 11/23/20 16:13 Active CULTURE URINE [RM] Stat Lab 11/23/20 17:12 Ordered Sodium Chloride 0.9% [Normal Saline] 1,000 ml Med 11/23/20 16:35 Active IV NOW Sodium Chloride 0.9% [Saline Flush] Med 11/23/20 16:13 Active 10 ml FLUSH ASDIRECTED PRN Peripheral IV Insertion Adult [OM.PC] Stat Oth 11/23/20 16:12 Ordered Medication Orders Sodium Chloride (Normal Saline) 1,000 mls @ 999 mls/hr IV NOW STA Stop: 11/23/20 17:35 Last Admin: 11/23/20 16:41 Dose: 999 mls/hr Documented by: SHIRLEY Sodium Chloride (Saline Flush) 10 ml FLUSH ASDIRECTED PRN PRN Reason: Keep Vein Open Last Admin: 11/23/20 16:14 Dose: 10 ml Documented by: WAI Labs: Laboratory Tests 11/23/20 11/23/20 11/23/20 Range/Units 16:02 16:05 16:05 WBC 11.44 H (3.98-10.04) K/mm3 RBC 5.58 H (3.98-5.22) M/mm3 Hgb 16.4 H D (11.2-15.7) gm/dl Hct 49.2 H (34.1-44.9) % MCV 88.2 (79.4-94.8) fl MCH 29.4 (25.6-32.2) pg MCHC 33.3 (32.2-35.5) g/dl RDW Std Deviation 42.7 (36.4-46.3) fL Plt Count 241 (182-369) K/mm3 MPV 9.8 (9.4-12.3) fl Neut % (Auto) 80.1 H (34.0-71.1) % Lymph % (Auto) 15.1 L (19.3-51.7) % [place] % (Auto) 4.5 L (4.7-12.5) % Eos % (Auto) 0 L (0.7-5.8) Baso % (Auto) 0.2 (0.1-1.2) % Neut # (Auto) 9.17 H (1.56-6.13) K/mm3 Lymph # (Auto) 1.73 (1.18-3.74) K/mm3 [place] # (Auto) 0.51 H (0.24-0.36) K/mm3 Eos # (Auto) 0.00 L (0.04-0.36) K/mm3 Baso # (Auto) 0.02 (0.01-0.08) K/mm3 Manual Slide Review Abnormal smear Sodium 137 (136-145) mEq/L Potassium 3.3 L (3.5-5.1) mEq/L Chloride 96 L (98-107) mEq/L Carbon Dioxide 28 (21-32) mEq/L Anion Gap 16.3 H (5-15) BUN 25 H (7-18) mg/dL Creatinine 1.5 H (0.55-1.02) mg/dL Est Cr Clr Drug Dosing 45.29 mL/min Estimated GFR (MDRD) 39 (>60) mL/min BUN/Creatinine Ratio 16.7 (14-18) Glucose 226 H (74-106) mg/dL POC Glucose 234 H (70-105) mg/dL Lactic Acid (0.4-2.0) mmol/L Calcium 9.8 (8.5-10.1) mg/dL Magnesium 1.8 (1.8-2.4) mg/dl Total Bilirubin 0.8 (0.2-1.0) mg/dL AST 18 (15-37) U/L ALT 27 (14-59) U/L Alkaline Phosphatase 111 (46-116) U/L C-Reactive Protein 0.9 (<1.0) mg/dL Total Protein 8.5 H (6.4-8.2) g/dl Albumin 4.6 (3.4-5.0) g/dl Globulin 3.9 gm/dL Albumin/Globulin Ratio 1.2 (1-2) Lipase (73-393) U/L Urine Color (Yellow) Urine Appearance (Clear) Urine pH (5.0-8.0) Ur Specific [place] (1.005-1.030) Urine Protein (Negative) Urine Glucose (UA) (Negative) Urine Ketones (Negative) Urine Occult Blood (Negative) Urine Nitrite (Negative) Urine Bilirubin (Negative) Urine Urobilinogen (0.2-1.0) Ur Leukocyte Esterase (Negative) U Hyaline Cast (Auto) (0-5) /lpf Urine RBC (0-5) /hpf Urine WBC (0-5) /hpf Ur Squamous Epith Cells (0-5) /hpf Urine Bacteria (FEW) /hpf Urine Mucus (FEW) /hpf Urine Yeast (NOT SEEN) Ketones (0.0-0.3) mM 11/23/20 11/23/20 11/23/20 Range/Units 16:05 16:05 16:27 WBC (3.98-10.04) K/mm3 RBC (3.98-5.22) M/mm3 Hgb (11.2-15.7) gm/dl Hct (34.1-44.9) % MCV (79.4-94.8) fl MCH (25.6-32.2) pg MCHC (32.2-35.5) g/dl RDW Std Deviation (36.4-46.3) fL Plt Count (182-369) K/mm3 MPV (9.4-12.3) fl Neut % (Auto) (34.0-71.1) % Lymph % (Auto) (19.3-51.7) % [place] % (Auto) (4.7-12.5) % Eos % (Auto) (0.7-5.8) Baso % (Auto) (0.1-1.2) % Neut # (Auto) (1.56-6.13) K/mm3 Lymph # (Auto) (1.18-3.74) K/mm3 [place] # (Auto) (0.24-0.36) K/mm3 Eos # (Auto) (0.04-0.36) K/mm3 Baso # (Auto) (0.01-0.08) K/mm3 Manual Slide Review Sodium (136-145) mEq/L Potassium (3.5-5.1) mEq/L Chloride (98-107) mEq/L Carbon Dioxide (21-32) mEq/L Anion Gap (5-15) BUN (7-18) mg/dL Creatinine (0.55-1.02) mg/dL Est Cr Clr Drug Dosing mL/min Estimated GFR (MDRD) (>60) mL/min BUN/Creatinine Ratio (14-18) Glucose (74-106) mg/dL POC Glucose (70-105) mg/dL Lactic Acid 1.6 (0.4-2.0) mmol/L Calcium (8.5-10.1) mg/dL Magnesium (1.8-2.4) mg/dl Total Bilirubin (0.2-1.0) mg/dL AST (15-37) U/L ALT (14-59) U/L Alkaline Phosphatase (46-116) U/L C-Reactive Protein (<1.0) mg/dL Total Protein (6.4-8.2) g/dl Albumin (3.4-5.0) g/dl Globulin gm/dL Albumin/Globulin Ratio (1-2) Lipase 35 L (73-393) U/L Urine Color (Yellow) Urine Appearance (Clear) Urine pH (5.0-8.0) Ur Specific [place] (1.005-1.030) Urine Protein (Negative) Urine Glucose (UA) (Negative) Urine Ketones (Negative) Urine Occult Blood (Negative) Urine Nitrite (Negative) Urine Bilirubin (Negative) Urine Urobilinogen (0.2-1.0) Ur Leukocyte Esterase (Negative) U Hyaline Cast (Auto) (0-5) /lpf Urine RBC (0-5) /hpf Urine WBC (0-5) /hpf Ur Squamous Epith Cells (0-5) /hpf Urine Bacteria (FEW) /hpf Urine Mucus (FEW) /hpf Urine Yeast (NOT SEEN) Ketones 0.99 (0.0-0.3) mM 24/20 Range/Units 16:35 WBC (3.98-10.04) K/mm3 RBC (3.98-5.22) M/mm3 Hgb (11.2-15.7) gm/dl Hct (34.1-44.9) % MCV (79.4-94.8) fl MCH (25.6-32.2) pg MCHC (32.2-35.5) g/dl RDW Std Deviation (36.4-46.3) fL Plt Count (182-369) K/mm3 MPV (9.4-12.3) fl Neut % (Auto) (34.0-71.1) % Lymph % (Auto) (19.3-51.7) % [place] % (Auto) (4.7-12.5) % Eos % (Auto) (0.7-5.8) Baso % (Auto) (0.1-1.2) % Neut # (Auto) (1.56-6.13) K/mm3 Lymph # (Auto) (1.18-3.74) K/mm3 [place] # (Auto) (0.24-0.36) K/mm3 Eos # (Auto) (0.04-0.36) K/mm3 Baso # (Auto) (0.01-0.08) K/mm3 Manual Slide Review Sodium (136-145) mEq/L Potassium (3.5-5.1) mEq/L Chloride (98-107) mEq/L Carbon Dioxide (21-32) mEq/L Anion Gap (5-15) BUN (7-18) mg/dL Creatinine (0.55-1.02) mg/dL Est Cr Clr Drug Dosing mL/min Estimated GFR (MDRD) (>60) mL/min BUN/Creatinine Ratio (14-18) Glucose (74-106) mg/dL POC Glucose (70-105) mg/dL Lactic Acid (0.4-2.0) mmol/L Calcium (8.5-10.1) mg/dL Magnesium (1.8-2.4) mg/dl Total Bilirubin (0.2-1.0) mg/dL AST (15-37) U/L ALT (14-59) U/L Alkaline Phosphatase (46-116) U/L C-Reactive Protein (<1.0) mg/dL Total Protein (6.4-8.2) g/dl Albumin (3.4-5.0) g/dl Globulin gm/dL Albumin/Globulin Ratio (1-2) Lipase (73-393) U/L Urine Color Yellow (Yellow) Urine Appearance Slt cloudy H (Clear) Urine pH 6.0 (5.0-8.0) Ur Specific [place] > or = 1.030 (1.005-1.030) Urine Protein 3+ H (Negative) Urine Glucose (UA) Trace H (Negative) Urine Ketones 2+ H (Negative) Urine Occult Blood 3+ H (Negative) Urine Nitrite Negative (Negative) Urine Bilirubin 2+ H (Negative) Urine Urobilinogen 0.2 (0.2-1.0) Ur Leukocyte Esterase Negative (Negative) U Hyaline Cast (Auto) >100 H (0-5) /lpf Urine RBC 10-20 H (0-5) /hpf Urine WBC 10-20 H (0-5) /hpf Ur Squamous Epith Cells 5-10 H (0-5) /hpf Urine Bacteria Many H (FEW) /hpf Urine Mucus Moderate H (FEW) /hpf Urine Yeast Few H (NOT SEEN) Ketones (0.0-0.3) mM Meds: Medications Generic Name Dose Route Start Last Admin Trade Name Freq PRN Reason Stop Dose Admin Sodium Chloride 1,000 mls @ 999 mls/hr 11/23/20 16:35 11/23/20 16:41 Normal Saline IV 11/23/20 17:35 999 mls/hr NOW STA Administration Sodium Chloride 10 ml 11/23/20 16:13 11/23/20 16:14 Saline Flush FLUSH 10 ml ASDIRECTED PRN Administration Keep Vein Open Discontinued Medications Generic Name Dose Route Start Last Admin Trade Name Freq PRN Reason Stop Dose Admin Hydromorphone HCl 0.5 mg 11/23/20 16:35 11/23/20 16:41 Dilaudid IVPUSH 11/23/20 16:36 0.5 mg ONETIME ONE Administration Ondansetron HCl 4 mg 11/23/20 16:35 11/23/20 16:43 Zofran IVPUSH 11/23/20 16:36 4 mg ONETIME ONE Administration - Re-Assessments/Exams Free Text/Narrative Re-Assessment/Exam: Patient is a 35-year-old female presenting to the emergency department complaints of nausea, vomiting, abdominal cramping with concerns that she is in DKA. She is type I diabetic and also has a history of gastroparesis which causes recurrent nausea and vomiting for her. States that she takes Reglan for gastroparesis, however she has been able to keep it down. Blood sugar on triage was 234. I have ordered CBC, CMP, CRP, lactic acid, lipase, serum ketones, and urinalysis. We will give her 1 L bolus of normal saline, Zofran 4 mg IV for nausea, and Dilaudid 0.5 mg IV for abdominal cramping. 11/23/20 17:25 Allergies significant for WBC minimally elevated 11.44, hemoglobin 16.4, potassium 3.3, anion gap 16.3, BUN 25, creatinine 1.5. Urinalysis shows 3+ protein, trace glucose, 2+ ketones, 3+ occult blood, negative leukocyte esterase, negative nitrite, and a micro suggestive of contamination. Urine has been sent for culture. Patient is feeling much better after the medications given we will discharge her home after her fluids are complete with instructions to continue her previously prescribed medications. Discussed return precautions. Discharge instructions as documented. Departure - Departure Time of Disposition: 17:25 Disposition: Home, Self-Care 01 Condition: Good Clinical Impression: Nausea and vomiting Qualifiers: Vomiting type: unspecified Vomiting Intractability: non-intractable Qualified Code(s): R11.2 - Nausea with vomiting, unspecified - Discharge Information *PRESCRIPTION DRUG MONITORING PROGRAM REVIEWED*: No *COPY OF PRESCRIPTION DRUG MONITORING REPORT IN PATIENT TANNER: No Instructions: Nausea and Vomiting, Adult Referrals: Saud Robin MD [Primary Care Provider] - Forms: ED Department Discharge Additional Instructions: You were seen in the emergency department today for nausea, vomiting, abdominal cramping, and elevated blood sugars. Work-up included blood work and urinalysis. Results your work-up show that you are mildly dehydrated, however you are not in diabetic ketoacidosis. While in the ER, you received a liter of IV fluids, Zofran for nausea, Dilaudid for pain. This did relieve your symptoms. Recommend that you go home and resume your medications as previously prescribed. Ensure that you are taking an adequate amount of fluid. Your urine has been sent for culture. If this should grow to bacteria requiring treatment, you will be notified. Return to ER for any new or worsening symptoms of concern. Sepsis Event Note (ED) - Evaluation Sepsis Screening Result: No Definite Risk - Focused Exam Vital Signs: Vital Signs Temp Pulse Resp BP Pulse Ox 11/23/20 16:03 99.4 F 83 16 177/117 H 97 - My Orders Last 24 Hours: My Active Orders 11/23/20 16:12 Peripheral IV Insertion Adult [OM.PC] Stat 11/23/20 16:13 Peripheral IV Care [RC] . DIRECTED Sodium Chloride 0.9% [Saline Flush] 10 ml FLUSH ASDIRECTED PRN 11/23/20 16:35 Sodium Chloride 0.9% [Normal Saline] 1,000 ml IV NOW 11/23/20 17:12 CULTURE URINE [RM] Stat - Assessment/Plan Last 24 Hours: My Active Orders 11/23/20 16:12 Peripheral IV Insertion Adult [OM.PC] Stat 11/23/20 16:13 Peripheral IV Care [RC] . DIRECTED Sodium Chloride 0.9% [Saline Flush] 10 ml FLUSH ASDIRECTED PRN 11/23/20 16:35 Sodium Chloride 0.9% [Normal Saline] 1,000 ml IV NOW 11/23/20 17:12 CULTURE URINE [RM] Stat
== END 2020-11-23 17:50 | disposition home or self-care (01) ==
LOC: JD.ED 15:54
DX: R11.2 Nausea with vomiting, unspecified (principal); E10.9 Type 1 diabetes mellitus without complications; I10 Essential (primary) hypertension; K21.9 Gastro-esophageal reflux disease without esophagitis; F17.210 Nicotine dependence, cigarettes, uncomplicated; Z91.040 Latex allergy status; Z88.5 Allergy status to narcotic agent; Z91.048 Other nonmedicinal substance allergy status; Z79.899 Other long term (current) drug therapy
CPT/HCPCS: 36415; 80053; 81001; 82009; 82962; 83605; 83690; 83735; 85025; 86140; 87086; 96374; 96375; 99284; J1170; J2405; J7030

== ENCOUNTER 2021-03-29 18:06 | Emergency (ER) | payer MEDICAID ==
[2021-03-29] MEDS ORDERED: Sodium Chloride 0.9% 10 ML Syringe FLUSH PRN (18:49)
[2021-03-29] MEDS ORDERED: Sodium Chloride 0.9% 1,000 ML IV STA (18:57)
[2021-03-29] MEDS ORDERED: HYDROmorphone 0.5 MG/0.5 ML Syringe IVPUSH ONE ×2 (18:57→19:59)
[2021-03-29] MEDS ORDERED: Ondansetron 4 MG/2 ML SDV IVPUSH ONE (18:57)
[2021-03-29] MEDS ORDERED: Pantoprazole 40 MG Vial IVPUSH ONE (18:58)
--- NOTE | 2021-03-29 19:14 | EDM.PDOC ---
ED HPI GENERAL MEDICAL PROBLEM - General Chief Complaint: Gastrointestinal Problem Stated Complaint: VOMITING AND NAUSEA Time Seen by Provider: 03/29/21 18:35 Source of Information: Reports: Patient, RN Notes Reviewed History Limitations: Reports: No Limitations - History of Present Illness INITIAL COMMENTS - FREE TEXT/NARRATIVE: Patient is a 35-year-old female presenting to the emergency department for evaluation with regards to nausea and vomiting for the last week as well as diarrhea that began last evening. She states that yesterday, she was having dark emesis, however this has resolved. She has had no vomiting thus far today. She does still have some diarrhea today. She states that this condition is chronic for her. She goes through episodes every few months similar to this. She takes Reglan twice daily at home which she did take today. She is prescribed to take omeprazole in the evening and Protonix in the morning. She did take her omeprazole last evening but did not take her Protonix this morning. She states that she came to the ER because she is sure that she is dehydrated as she has lost 10 pounds over the last week. Otherwise she feels that she is getting better because she was "able to smoke a cigarette today without throwing up ". She is a type I diabetic. States for the last few days, her blood sugars have been quite high, however they have been normal throughout the day today. She had EGD done a few months back and states that they did not find anything abnormal on this. Abdomen Pain Score (Numeric/FACES): 9 - Related Data Allergies Allergy/AdvReac Type Severity Reaction Status Date / Time latex Allergy Severe Hives Verified 11/23/20 16:07 tramadol Allergy Severe Hives Verified 11/23/20 16:07 purex laundry soap Allergy Severe Hives Uncoded 11/23/20 16:07 Home Meds: Home Meds Buprenorphine HCl/Naloxone HCl [Buprenorphine-Nalox 8-2Mg Film] 20 mg SL DAILY 02/29/20 [History] Insulin Aspart [NovoLOG] 2 unit SUBCUT TIDPC #2 pen 04/26/20 [Rx] Insulin Degludec [Tresiba] 10 unit SQ DAILY 09/30/20 [History] Losartan [Cozaar] 50 mg PO DAILY tablet 10/02/20 [Rx] Metoclopramide HCl [Reglan] 5 mg PO BID 11/23/20 [History] Omeprazole Magnesium [Prilosec Otc] 20 mg PO BEDTIME 03/29/21 [History] Pantoprazole [ProTONIX] 40 mg PO DAILY 03/29/21 [History] Past Medical History HEENT History: Reports: Other (See Below) Other HEENT History: dysphagia Cardiovascular History: Reports: Hypertension Respiratory History: Reports: PE Gastrointestinal History: Reports: Chronic Diarrhea, GERD, Irritable Bowel Syndrome Other Gastrointestinal History: diarrhea, nausea, LLQ pain 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 History: Reports: Acute Renal Failure [employer] History: Reports: Endometriosis, Other [employer] History: amenorrhea Musculoskeletal History: Reports: Arthritis, Back Pain, Chronic Other Musculoskeletal History: chronic pain Neurological History: Reports: Headaches, Chronic, Migraines, Seizure Other Neuro History: Diabetic seizure Psychiatric History: Reports: Anxiety, Depression Other Psychiatric History: drug use history Endocrine/Metabolic History: Reports: Diabetes, Type I, Hypokalemia Other Endocrine/Metabolic History: hypokalemia 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 - Past Surgical History GI Surgical History: Reports: Cholecystectomy Other GI Surgeries/Procedures: ileostomy and closure, small bowel resection Female Surgical History: Reports: D&C Endocrine Surgical History: Reports: None Neurological Surgical History: Reports: None Musculoskeletal Surgical History: Reports: None Dermatological Surgical History: Reports: None Social & Family History - Family History Family Medical History: No Pertinent Family History - Tobacco Use Tobacco Use Status *Q: Current Every Day Tobacco User Years of Tobacco use: 20 Packs/Tins Daily: 1 - Caffeine Use Caffeine Use: Reports: Coffee Other Caffeine Use: drinks mellow yellow daily about 3 cans Caffeine Use Comment: unable to assess and verify for now due to condition - Recreational Drug Use Recreational Drug Type: Reports: Marijuana/Hashish Other Recreational Drug Type: has card - Living Situation & Occupation Living situation: Reports: Single, with Family Occupation: Unemployed ED ROS GENERAL - Review of Systems Review Of Systems: Comprehensive ROS is negative, except as noted in HPI. ED EXAM, GI/ABD - Physical Exam Exam: See Below Exam Limited By: No Limitations General Appearance: Alert, WD/WN, No Apparent Distress, Cachetic Respiratory/Chest: No Respiratory Distress, Lungs Clear, Normal Breath Sounds, No Accessory Muscle Use, Chest Non-Tender Cardiovascular: Normal Peripheral Pulses, Regular Rate, Rhythm, No Edema, No Gallop, No JVD, No Murmur, No Rub GI/Abdominal Exam: Normal Bowel Sounds, Soft, No Organomegaly, No Distention, No Abnormal Bruit, No Mass, Pelvis Stable, Tender (Generalized tenderness throughout) Neurological: Alert, Oriented, CN II-XII Intact, Normal Cognition, Normal Gait, Normal Reflexes, No Motor/Sensory Deficits Psychiatric: Normal Affect, Normal Mood Skin Exam: Warm, Dry, Intact, Normal Color, No Rash Course - Vital Signs Last Recorded V/S: Last Vital Signs Temp 98.7 F 03/29/21 18:27 Pulse 85 03/29/21 20:36 Resp 20 03/29/21 18:27 BP 140/88 03/29/21 20:36 Pulse Ox 100 03/29/21 18:27 - Orders/Labs/Meds Orders: Active Orders 24 hr Category Date Time Status Peripheral IV Insertion Adult [OM.PC] Stat Oth 03/29/21 18:48 Ordered Labs: Laboratory Tests 03/29/21 03/29/21 03/29/21 Range/Units 18:50 18:50 18:50 WBC 7.12 (3.98-10.04) K/mm3 RBC 4.98 (3.98-5.22) M/mm3 Hgb 15.1 (11.2-15.7) gm/dl Hct 44.4 (34.1-44.9) % MCV 89.2 (79.4-94.8) fl MCH 30.3 (25.6-32.2) pg MCHC 34.0 (32.2-35.5) g/dl RDW Std Deviation 40.3 (36.4-46.3) fL Plt Count 231 (182-369) K/mm3 MPV 9.5 (9.4-12.3) fl Neut % (Auto) 71.5 H (34.0-71.1) % Lymph % (Auto) 23.5 (19.3-51.7) % [place] % (Auto) 3.9 L (4.7-12.5) % Eos % (Auto) 0.6 L (0.7-5.8) Baso % (Auto) 0.4 (0.1-1.2) % Neut # (Auto) 5.09 (1.56-6.13) K/mm3 Lymph # (Auto) 1.67 (1.18-3.74) K/mm3 [place] # (Auto) 0.28 (0.24-0.36) K/mm3 Eos # (Auto) 0.04 (0.04-0.36) K/mm3 Baso # (Auto) 0.03 (0.01-0.08) K/mm3 Sodium 136 (136-145) mEq/L Potassium 4.2 (3.5-5.1) mEq/L Chloride 97 L (98-107) mEq/L Carbon Dioxide 27 (21-32) mEq/L Anion Gap 16.2 H (5-15) BUN 24 H (7-18) mg/dL Creatinine 1.1 H (0.55-1.02) mg/dL Est Cr Clr Drug Dosing 55.85 mL/min Estimated GFR (MDRD) 56 (>60) mL/min BUN/Creatinine Ratio 21.8 H (14-18) Glucose 219 H (74-106) mg/dL Calcium 9.1 (8.5-10.1) mg/dL Total Bilirubin 0.9 (0.2-1.0) mg/dL AST 32 (15-37) U/L ALT 40 (14-59) U/L Alkaline Phosphatase 85 (46-116) U/L Total Protein 7.0 (6.4-8.2) g/dl Albumin 3.7 (3.4-5.0) g/dl Globulin 3.3 gm/dL Albumin/Globulin Ratio 1.1 (1-2) Urine Color (Yellow) Urine Appearance (Clear) Urine pH (5.0-8.0) Ur Specific [place] (1.005-1.030) Urine Protein (Negative) Urine Glucose (UA) (Negative) Urine Ketones (Negative) Urine Occult Blood (Negative) Urine Nitrite (Negative) Urine Bilirubin (Negative) Urine Urobilinogen (0.2-1.0) Ur Leukocyte Esterase (Negative) Urine RBC (0-5) /hpf Urine WBC (0-5) /hpf Ur Squamous Epith Cells (0-5) /hpf Urine Bacteria (FEW) /hpf Urine Mucus (FEW) /hpf Ketones 3.2 (0.0-0.3) mM 03/29/21 Range/Units 19:35 WBC (3.98-10.04) K/mm3 RBC (3.98-5.22) M/mm3 Hgb (11.2-15.7) gm/dl Hct (34.1-44.9) % MCV (79.4-94.8) fl MCH (25.6-32.2) pg MCHC (32.2-35.5) g/dl RDW Std Deviation (36.4-46.3) fL Plt Count (182-369) K/mm3 MPV (9.4-12.3) fl Neut % (Auto) (34.0-71.1) % Lymph % (Auto) (19.3-51.7) % [place] % (Auto) (4.7-12.5) % Eos % (Auto) (0.7-5.8) Baso % (Auto) (0.1-1.2) % Neut # (Auto) (1.56-6.13) K/mm3 Lymph # (Auto) (1.18-3.74) K/mm3 [place] # (Auto) (0.24-0.36) K/mm3 Eos # (Auto) (0.04-0.36) K/mm3 Baso # (Auto) (0.01-0.08) K/mm3 Sodium (136-145) mEq/L Potassium (3.5-5.1) mEq/L Chloride (98-107) mEq/L Carbon Dioxide (21-32) mEq/L Anion Gap (5-15) BUN (7-18) mg/dL Creatinine (0.55-1.02) mg/dL Est Cr Clr Drug Dosing mL/min Estimated GFR (MDRD) (>60) mL/min BUN/Creatinine Ratio (14-18) Glucose (74-106) mg/dL Calcium (8.5-10.1) mg/dL Total Bilirubin (0.2-1.0) mg/dL AST (15-37) U/L ALT (14-59) U/L Alkaline Phosphatase (46-116) U/L Total Protein (6.4-8.2) g/dl Albumin (3.4-5.0) g/dl Globulin gm/dL Albumin/Globulin Ratio (1-2) Urine Color Yellow (Yellow) Urine Appearance Clear (Clear) Urine pH 6.5 (5.0-8.0) Ur Specific [place] > or = 1.030 (1.005-1.030) Urine Protein 3+ H (Negative) Urine Glucose (UA) 1+ H (Negative) Urine Ketones 3+ H (Negative) Urine Occult Blood 3+ H (Negative) Urine Nitrite Negative (Negative) Urine Bilirubin 1+ H (Negative) Urine Urobilinogen 0.2 (0.2-1.0) Ur Leukocyte Esterase Negative (Negative) Urine RBC 50-75 H (0-5) /hpf Urine WBC 0-5 (0-5) /hpf Ur Squamous Epith Cells 0-5 (0-5) /hpf Urine Bacteria Few (FEW) /hpf Urine Mucus Few (FEW) /hpf Ketones (0.0-0.3) mM Meds: Medications Discontinued Medications Generic Name Dose Route Start Last Admin Trade Name Freq PRN Reason Stop Dose Admin Hydromorphone HCl 0.5 mg 03/29/21 18:57 03/29/21 19:21 Hydromorphone 0.5 Mg/0.5 Ml Syringe IVPUSH 03/29/21 18:58 0.5 mg ONETIME ONE Administration Hydromorphone HCl 0.5 mg 03/29/21 19:59 03/29/21 20:24 Hydromorphone 0.5 Mg/0.5 Ml Syringe IVPUSH 03/29/21 20:00 0.5 mg ONETIME ONE Administration Sodium Chloride 1,000 mls @ 999 mls/hr 03/29/21 18:57 03/29/21 19:23 Normal Saline IV 03/29/21 19:57 999 mls/hr NOW STA Administration Ondansetron HCl 4 mg 03/29/21 18:57 03/29/21 19:17 Ondansetron 4 Mg/2 Ml Sdv IVPUSH 03/29/21 18:58 4 mg ONETIME ONE Administration Pantoprazole Sodium 40 mg 03/29/21 18:58 03/29/21 19:19 Pantoprazole 40 Mg Vial IVPUSH 03/29/21 18:59 40 mg ONETIME ONE Administration Sodium Chloride 10 ml 03/29/21 18:49 03/29/21 18:55 Sodium Chloride 0.9% 10 Ml Syringe FLUSH 10 ml ASDIRECTED PRN Administration Keep Vein Open - Re-Assessments/Exams Free Text/Narrative Re-Assessment/Exam: Patient is a 35-year-old female presenting to the emergency department with recurrence of chronic nausea, vomiting, diarrhea, and ovidio pain. States these episodes happen every few months. She has been having these symptoms for approximately 1 week, however today states it has improved. She feels that she is dehydrated and needs fluids as well as something for the abdominal pain related to recurrent vomiting. She denies any fever or chills. She has prescription for Reglan twice daily at home as well as Protonix and omeprazole. I have ordered blood work, urinalysis, 1 L bolus of normal saline, Dilaudid 0.5 mg IV, Protonix 40 mg IV, and Zofran 4 mg IV. 03/29/21 20:32 Hematology was significant for anion gap minimally elevated at 16.2, BUN 24, creatinine 1.1, glucose 219. Urinalysis with 3+ protein, 1+ glucose, 2+ ketones, 3+ occult blood, 1+ bilirubin with 50-75 RBCs. No signs of infection. Ketones are 3.2. Patient is feeling better after the medications given. I will discharge her home. Recommend that she continue her omeprazole and Protonix, as well as her Reglan as ordered. Discussed return precautions. Discharge instructions as documented. Departure - Departure Time of Disposition: 20:33 Disposition: Home, Self-Care 01 Condition: Good Clinical Impression: Cachectic Nausea and vomiting Qualifiers: Vomiting type: unspecified Vomiting Intractability: non-intractable Qualified Code(s): R11.2 - Nausea with vomiting, unspecified - Discharge Information *PRESCRIPTION DRUG MONITORING PROGRAM REVIEWED*: No *COPY OF PRESCRIPTION DRUG MONITORING REPORT IN PATIENT TANNER: No Instructions: Nausea and Vomiting, Adult Referrals: Saud Robin MD [Primary Care Provider] - Forms: ED Department Discharge Additional Instructions: You were seen in the emergency department this evening for evaluation with regards to 1 week history of nausea, vomiting, diarrhea, and abdominal pain. Work-up included blood work and urinalysis. Work-up did show that she were mildly dehydrated. While in the ER, you received a liter of IV fluids as well as nausea and pain medications. He also received Protonix through your IV since he did not take this medication today. Recommend that you continue your medications as previously prescribed. Ensure that you are taking an adequate amount of fluid. Return to ER for any new or worsening symptoms of concern. Sepsis Event Note (ED) - Evaluation Sepsis Screening Result: No Definite Risk - Focused Exam Vital Signs: Vital Signs Temp Pulse Resp BP Pulse Ox 03/29/21 20:36 85 140/88 03/29/21 18:27 98.7 F 93 20 162/109 H 100 - My Orders Last 24 Hours: My Active Orders 03/29/21 18:48 Peripheral IV Insertion Adult [OM.PC] Stat - Assessment/Plan Last 24 Hours: My Active Orders 03/29/21 18:48 Peripheral IV Insertion Adult [OM.PC] Stat
== END 2021-03-29 20:50 | disposition home or self-care (01) ==
LOC: JD.ED 18:06
DX: R11.2 Nausea with vomiting, unspecified (principal); R64 Cachexia; I10 Essential (primary) hypertension; K21.9 Gastro-esophageal reflux disease without esophagitis; E10.9 Type 1 diabetes mellitus without complications; Z79.899 Other long term (current) drug therapy; Z88.5 Allergy status to narcotic agent; Z91.048 Other nonmedicinal substance allergy status; Z91.040 Latex allergy status
CPT/HCPCS: 36415; 80053; 81001; 82009; 85025; 96374; 96375; 96376; 99284; C9113; J1170; J2405; J7030

== ENCOUNTER 2021-08-11 12:54 | Inpatient (IN) | payer MEDICAID ==
[2021-08-11] MEDS ORDERED: Sodium Chloride 0.9% 10 ML Syringe FLUSH PRN (13:10)
[2021-08-11] MEDS ORDERED: Ondansetron 4 MG/2 ML SDV IVPUSH ONE (13:10)
[2021-08-11] MEDS ORDERED: Sodium Chloride 0.9% 1,000 ML IV SCH (13:15)
[2021-08-11] MEDS ORDERED: HYDROmorphone 1 MG/ML Syringe IVPUSH ONE ×2 (13:19→20:13)
--- NOTE | 2021-08-11 13:26 | EDM.PDOC ---
ED HPI GENERAL MEDICAL PROBLEM - General Chief Complaint: Diabetic Complaint Stated Complaint: DIABETIC COMPLAINT/VOMITING Time Seen by Provider: 08/11/21 13:10 Source of Information: Reports: Patient, RN Notes Reviewed History Limitations: Reports: No Limitations - History of Present Illness INITIAL COMMENTS - FREE TEXT/NARRATIVE: Patient is a 36-year-old female who presents to the ER for evaluation of her diabetic complaint and vomiting. Patient notes for the last 3 days, she has been having issues with nausea and vomiting. She is a type I diabetic. She has been trying to use her insulin on her sliding scales, but she is not been able to keep on top of it. She states that her blood glucose monitor will not even read her blood sugar at home. Nursing staff states that her blood sugar was 477 when she arrived in the ER. Patient has a history of DKA, and has a slightly fruity odor to her breath. She has not had any fevers or chills, any cough or worsening shortness of breath. She is having some upper abdominal pain. States she is having vomitus with streaks of blood as well. Primary care provider is Dr. Medrano. Patient states she has not been around anyone that is been sick but her father was recently released from the [facility], as he was found to be a type II diabetic. She states that this has really stressed her out, and she believes this might have been the trigger for her illness today. Abdominal Pain Score (Numeric/FACES): 10 - Related Data Allergies Allergy/AdvReac Type Severity Reaction Status Date / Time latex Allergy Intermediate Hives Verified 08/11/21 13:05 tramadol Allergy Intermediate Hives Verified 08/11/21 13:05 purex laundry soap Allergy Intermediate Hives Uncoded 08/11/21 13:05 Home Meds: Home Meds Buprenorphine HCl/Naloxone HCl [Buprenorphine-Nalox 8-2Mg Film] 20 mg SL DAILY 02/29/20 [History] Insulin Aspart [NovoLOG] 2 unit SUBCUT TIDPC #2 pen 04/26/20 [Rx] Insulin Degludec [Tresiba] 10 unit SQ DAILY 09/30/20 [History] Losartan [Cozaar] 50 mg PO DAILY tablet 10/02/20 [Rx] Metoclopramide HCl [Reglan] 5 mg PO BID 11/23/20 [History] Omeprazole Magnesium [Prilosec Otc] 20 mg PO BEDTIME 03/29/21 [History] Pantoprazole [ProTONIX] 40 mg PO DAILY 03/29/21 [History] Past Medical History HEENT History: Reports: Other (See Below) Other HEENT History: dysphagia Cardiovascular History: Reports: Hypertension Respiratory History: Reports: PE Gastrointestinal History: Reports: Chronic Diarrhea, GERD, Irritable Bowel Syndrome Other Gastrointestinal History: diarrhea, nausea, LLQ pain 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 History: Reports: Acute Renal Failure [employer] RO[employer] HAIR History: Reports: Endometriosis, Other [employer] HAIR History: amenorrhea Musculoskeletal History: Reports: Arthritis, Back Pain, Chronic Other Musculoskeletal History: chronic pain Neurological History: Reports: Headaches, Chronic, Migraines, Seizure Other Neuro History: Diabetic seizure Psychiatric History: Reports: Anxiety, Depression Other Psychiatric History: drug use history Endocrine/Metabolic History: Reports: Diabetes, Type I, Hypokalemia Other Endocrine/Metabolic History: hypokalemia 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 - Past Surgical History GI Surgical History: Reports: Cholecystectomy Other GI Surgeries/Procedures: ileostomy and closure, small bowel resection Female Surgical History: Reports: D&C Endocrine Surgical History: Reports: None Neurological Surgical History: Reports: None Musculoskeletal Surgical History: Reports: None Dermatological Surgical History: Reports: None Social & Family History - Family History Family Medical History: No Pertinent Family History - Caffeine Use Caffeine Use: Reports: Coffee Other Caffeine Use: drinks mellow yellow daily about 3 cans Caffeine Use Comment: unable to assess and verify for now due to condition - Living Situation & Occupation Living situation: Reports: Single, with Family Occupation: Unemployed ED ROS GENERAL - Review of Systems Review Of Systems: Comprehensive ROS is negative, except as noted in HPI. ED EXAM GENERAL NO PERIP PULSE - Physical Exam Exam: See Below Exam Limited By: No Limitations General Appearance: Alert, WD/WN, No Apparent Distress Respiratory/Chest: No Respiratory Distress, Lungs Clear, Normal Breath Sounds, No Accessory Muscle Use, Chest Non-Tender Cardiovascular: Normal Peripheral Pulses, Regular Rate, Rhythm, No Edema GI/Abdominal: Normal Bowel Sounds, Soft, Tender (to epigastrium, but generalized abd tenderness) Extremities: Normal Inspection, Normal Capillary Refill Neurological: Alert, Oriented, Normal Cognition, No Motor/Sensory Deficits Psychiatric: Normal Affect, Normal Mood Skin Exam: Warm, Dry, Intact, No Rash, Pallor (generalized) Course - Vital Signs Last Recorded V/S: Last Vital Signs Temp 98.1 F 08/11/21 13:01 Pulse 123 H 08/11/21 13:01 Resp 14 08/11/21 13:01 BP 152/117 H 08/11/21 13:01 Pulse Ox 99 08/11/21 13:01 - Orders/Labs/Meds Orders: Active Orders 24 hr Category Date Time Status Communication Order [RC] STAT Care 08/11/21 13:10 Ordered POC Glucose [Blood Glucose Check, Bedside] [RC] ONETIME Care 08/11/21 15:41 Ordered Peripheral IV Care [RC] . DIRECTED Care 08/11/21 13:11 Ordered Chest 1V Frontal [CR] Stat Exams 08/11/21 15:46 Ordered BLOOD CULTURE [MREF] Stat Lab 08/11/21 13:11 Ordered BLOOD CULTURE [MREF] Stat Lab 08/11/21 13:11 Ordered GLUCOSE,POC [POC] Routine Lab 08/11/21 17:33 Received Regular Insulin,Human 100 Units in Normal Saline @ 0.1 Med 08/11/21 17:45 Ordered Units/KG/HR Insulin Regular, Human [HumuLIN R] 100 unit Sodium Chloride 0.9% [Normal Saline] 99 ml IV TITRATE Sodium Chloride 0.9% [Normal Saline] 1,000 ml Med 08/11/21 13:15 Active IV ASDIRECTED Sodium Chloride 0.9% [Saline Flush] Med 08/11/21 13:10 Active 10 ml FLUSH ASDIRECTED PRN Blood Culture x2 Reflex Set [OM.PC] Stat Oth 08/11/21 13:10 Ordered Peripheral IV Insertion Adult [OM.PC] Stat Oth 08/11/21 13:10 Ordered Medication Orders Sodium Chloride (Normal Saline) 1,000 mls @ 999 mls/hr IV ASDIRECTED TONIO Last Admin: 08/11/21 17:30 Dose: 999 mls/hr Documented by: Insulin Human Regular 100 unit (/ Sodium Chloride) 100 mls @ 4.536 mls/hr IV TITRATE TONIO; Protocol Sodium Chloride (Sodium Chloride 0.9% 10 Ml Syringe) 10 ml FLUSH ASDIRECTED PRN PRN Reason: Keep Vein Open Last Admin: 08/11/21 13:40 Dose: 10 ml Documented by: RANJANA Labs: Laboratory Tests 08/11/21 08/11/21 08/11/21 Range/Units 13:04 13:40 13:40 WBC 17.80 H (3.98-10.04) K/mm3 RBC 4.18 (3.98-5.22) M/mm3 Hgb 12.7 D (11.2-15.7) gm/dl Hct 38.1 (34.1-44.9) % MCV 91.1 (79.4-94.8) fl MCH 30.4 (25.6-32.2) pg MCHC 33.3 (32.2-35.5) g/dl RDW Std Deviation 40.8 (36.4-46.3) fL Plt Count 265 (182-369) K/mm3 MPV 9.3 L (9.4-12.3) fl Neut % (Auto) 89.4 H (34.0-71.1) % Lymph % (Auto) 4.8 L (19.3-51.7) % Floyd % (Auto) 5.5 (4.7-12.5) % Eos % (Auto) 0 L (0.7-5.8) Baso % (Auto) 0.1 (0.1-1.2) % Neut # (Auto) 15.91 H (1.56-6.13) K/mm3 Lymph # (Auto) 0.86 L (1.18-3.74) K/mm3 Floyd # (Auto) 0.98 H (0.24-0.36) K/mm3 Eos # (Auto) 0.00 L (0.04-0.36) K/mm3 Baso # (Auto) 0.01 (0.01-0.08) K/mm3 VBG pH 7.27 L (7.30-7.40) Sodium (136-145) mEq/L Potassium (3.5-5.1) mEq/L Chloride (98-107) mEq/L Carbon Dioxide (21-32) mEq/L Anion Gap (5-15) BUN (7-18) mg/dL Creatinine (0.55-1.02) mg/dL Est Cr Clr Drug Dosing mL/min Estimated GFR (MDRD) (>60) mL/min BUN/Creatinine Ratio (14-18) Glucose (70-99) mg/dL POC Glucose 477 H* (70-99) mg/dL Lactic Acid (0.4-2.0) mmol/L Calcium (8.5-10.1) mg/dL Phosphorus (2.6-4.7) mg/dL Magnesium (1.8-2.4) mg/dL Total Bilirubin (0.2-1.0) mg/dL AST (15-37) U/L ALT (14-59) U/L Alkaline Phosphatase (46-116) U/L Total Protein (6.4-8.2) g/dl Albumin (3.4-5.0) g/dl Globulin gm/dL Albumin/Globulin Ratio (1-2) Lipase (73-393) U/L Urine Color (Yellow) Urine Appearance (Clear) Urine pH (5.0-8.0) Ur Specific [place] (1.005-1.030) Urine Protein (Negative) Urine Glucose (UA) (Negative) Urine Ketones (Negative) Urine Occult Blood (Negative) Urine Nitrite (Negative) Urine Bilirubin (Negative) Urine Urobilinogen (0.2-1.0) Ur Leukocyte Esterase (Negative) Urine RBC (0-5) /hpf Urine WBC (0-5) /hpf Ur Epithelial Cells (0-5) /hpf Urine Bacteria (FEW) /hpf Urine Mucus (FEW) /hpf Urine Yeast (Budding) (NOT SEEN) Ethyl Alcohol (0.00) gm% Ketones (0.0-0.3) mM SARS-CoV-2 RNA (KIMMY) (NEGATIVE) 08/11/21 08/11/21 08/11/21 Range/Units 13:40 13:40 13:40 WBC (3.98-10.04) K/mm3 RBC (3.98-5.22) M/mm3 Hgb (11.2-15.7) gm/dl Hct (34.1-44.9) % MCV (79.4-94.8) fl MCH (25.6-32.2) pg MCHC (32.2-35.5) g/dl RDW Std Deviation (36.4-46.3) fL Plt Count (182-369) K/mm3 MPV (9.4-12.3) fl Neut % (Auto) (34.0-71.1) % Lymph % (Auto) (19.3-51.7) % Floyd % (Auto) (4.7-12.5) % Eos % (Auto) (0.7-5.8) Baso % (Auto) (0.1-1.2) % Neut # (Auto) (1.56-6.13) K/mm3 Lymph # (Auto) (1.18-3.74) K/mm3 Floyd # (Auto) (0.24-0.36) K/mm3 Eos # (Auto) (0.04-0.36) K/mm3 Baso # (Auto) (0.01-0.08) K/mm3 VBG pH (7.30-7.40) Sodium 133 L (136-145) mEq/L Potassium 4.4 (3.5-5.1) mEq/L Chloride 94 L (98-107) mEq/L Carbon Dioxide 20 L (21-32) mEq/L Anion Gap 23.4 H (5-15) BUN 59 H D (7-18) mg/dL Creatinine 1.9 H (0.55-1.02) mg/dL Est Cr Clr Drug Dosing 29.03 mL/min Estimated GFR (MDRD) 30 (>60) mL/min BUN/Creatinine Ratio 31.1 H (14-18) Glucose 521 H* (70-99) mg/dL POC Glucose (70-99) mg/dL Lactic Acid (0.4-2.0) mmol/L Calcium 8.8 (8.5-10.1) mg/dL Phosphorus 4.3 (2.6-4.7) mg/dL Magnesium 2.2 (1.8-2.4) mg/dL Total Bilirubin 0.7 (0.2-1.0) mg/dL AST 10 L (15-37) U/L ALT 25 (14-59) U/L Alkaline Phosphatase 81 (46-116) U/L Total Protein 7.2 (6.4-8.2) g/dl Albumin 3.9 (3.4-5.0) g/dl Globulin 3.3 gm/dL Albumin/Globulin Ratio 1.2 (1-2) Lipase 33 L (73-393) U/L Urine Color (Yellow) Urine Appearance (Clear) Urine pH (5.0-8.0) Ur Specific [place] (1.005-1.030) Urine Protein (Negative) Urine Glucose (UA) (Negative) Urine Ketones (Negative) Urine Occult Blood (Negative) Urine Nitrite (Negative) Urine Bilirubin (Negative) Urine Urobilinogen (0.2-1.0) Ur Leukocyte Esterase (Negative) Urine RBC (0-5) /hpf Urine WBC (0-5) /hpf Ur Epithelial Cells (0-5) /hpf Urine Bacteria (FEW) /hpf Urine Mucus (FEW) /hpf Urine Yeast (Budding) (NOT SEEN) Ethyl Alcohol 0.00 (0.00) gm% Ketones 8.82 (0.0-0.3) mM SARS-CoV-2 RNA (KIMMY) (NEGATIVE) 08/11/21 08/11/21 08/11/21 Range/Units 13:50 14:15 15:00 WBC (3.98-10.04) K/mm3 RBC (3.98-5.22) M/mm3 Hgb (11.2-15.7) gm/dl Hct (34.1-44.9) % MCV (79.4-94.8) fl MCH (25.6-32.2) pg MCHC (32.2-35.5) g/dl RDW Std Deviation (36.4-46.3) fL Plt Count (182-369) K/mm3 MPV (9.4-12.3) fl Neut % (Auto) (34.0-71.1) % Lymph % (Auto) (19.3-51.7) % Floyd % (Auto) (4.7-12.5) % Eos % (Auto) (0.7-5.8) Baso % (Auto) (0.1-1.2) % Neut # (Auto) (1.56-6.13) K/mm3 Lymph # (Auto) (1.18-3.74) K/mm3 Floyd # (Auto) (0.24-0.36) K/mm3 Eos # (Auto) (0.04-0.36) K/mm3 Baso # (Auto) (0.01-0.08) K/mm3 VBG pH (7.30-7.40) Sodium (136-145) mEq/L Potassium (3.5-5.1) mEq/L Chloride (98-107) mEq/L Carbon Dioxide (21-32) mEq/L Anion Gap (5-15) BUN (7-18) mg/dL Creatinine (0.55-1.02) mg/dL Est Cr Clr Drug Dosing mL/min Estimated GFR (MDRD) (>60) mL/min BUN/Creatinine Ratio (14-18) Glucose (70-99) mg/dL POC Glucose (70-99) mg/dL Lactic Acid 1.6 (0.4-2.0) mmol/L Calcium (8.5-10.1) mg/dL Phosphorus (2.6-4.7) mg/dL Magnesium (1.8-2.4) mg/dL Total Bilirubin (0.2-1.0) mg/dL AST (15-37) U/L ALT (14-59) U/L Alkaline Phosphatase (46-116) U/L Total Protein (6.4-8.2) g/dl Albumin (3.4-5.0) g/dl Globulin gm/dL Albumin/Globulin Ratio (1-2) Lipase (73-393) U/L Urine Color Yellow (Yellow) Urine Appearance Clear (Clear) Urine pH 5.5 (5.0-8.0) Ur Specific [place] 1.020 (1.005-1.030) Urine Protein 2+ H (Negative) Urine Glucose (UA) 2+ H (Negative) Urine Ketones 4+ H (Negative) Urine Occult Blood 2+ H (Negative) Urine Nitrite Negative (Negative) Urine Bilirubin 1+ H (Negative) Urine Urobilinogen 0.2 (0.2-1.0) Ur Leukocyte Esterase Negative (Negative) Urine RBC 0-5 (0-5) /hpf Urine WBC 0-5 (0-5) /hpf Ur Epithelial Cells 0-5 (0-5) /hpf Urine Bacteria Few (FEW) /hpf Urine Mucus Not seen (FEW) /hpf Urine Yeast (Budding) Moderate H (NOT SEEN) Ethyl Alcohol (0.00) gm% Ketones (0.0-0.3) mM SARS-CoV-2 RNA (KIMMY) Negative (NEGATIVE) Meds: Medications Generic Name Dose Route Start Last Admin Trade Name Freq PRN Reason Stop Dose Admin Sodium Chloride 1,000 mls @ 999 mls/hr 08/11/21 13:15 08/11/21 17:30 Normal Saline IV 999 mls/hr ASDIRECTED TONIO Administration Insulin Human Regular 100 unit 100 mls @ 4.536 mls/hr 08/11/21 17:45 / Sodium Chloride IV TITRATE TONIO Protocol 0.1 UNITS/KG/HR Sodium Chloride 10 ml 08/11/21 13:10 08/11/21 13:40 Sodium Chloride 0.9% 10 Ml Syringe FLUSH 10 ml ASDIRECTED PRN Administration Keep Vein Open Discontinued Medications Generic Name Dose Route Start Last Admin Trade Name Carlyle PRN Reason Stop Dose Admin Hydromorphone HCl 1 mg 08/11/21 13:19 08/11/21 13:40 Hydromorphone 1 Mg/Ml Syringe IVPUSH 08/11/21 13:20 1 mg ONETIME ONE Administration Hydromorphone HCl 0.5 mg 08/11/21 15:16 08/11/21 15:44 Hydromorphone 0.5 Mg/0.5 Ml Syringe IVPUSH 08/11/21 15:17 0.5 mg ONETIME ONE Administration Sodium Chloride 1,000 mls @ 999 mls/hr 08/11/21 14:57 08/11/21 15:05 Normal Saline IV 08/11/21 15:57 750 mls/hr ONETIME ONE Infusion Insulin Human Regular 5 unit 08/11/21 17:38 Insulin Regular, Human 100 Units/Ml 3 Ml Vial SUBCUT 08/11/21 17:39 ONETIME ONE Insulin Human Regular 5 unit 08/11/21 17:41 Insulin Regular, Human 100 Units/Ml 3 Ml Vial IV 08/11/21 17:42 ONETIME ONE Ondansetron HCl 4 mg 08/11/21 13:10 08/11/21 13:44 Ondansetron 4 Mg/2 Ml Sdv IVPUSH 08/11/21 13:11 4 mg ONETIME ONE Administration - Re-Assessments/Exams Free Text/Narrative Re-Assessment/Exam: 08/11/21 13:25 Patient presents to the ER for evaluation of her blood sugar issues and vomiting. Patient's been known to be in DKA in the past. So we will go ahead and get a multitude of labs, along with a COVID-19 screen for management. We will give her IV fluids initially, and recheck her blood sugar after the bag of fluids have been given, and then start insulin as needed to help control her blood sugars. 08/11/21 15:44 Patient's labs have resulted, her white count is elevated at 17.6 with 89% neutrophil count on the auto differential. Metabolic panel does demonstrate an elevated anion gap, potassium is within normal limits, renal insufficiency, blood sugar was 521, and 477 apparently she was a hard IV stick, and fluids have been running a little bit slower than typical so we will check blood sugars between bags of fluids. Her venous pH was 7.27, urinalysis was clean for any sign of infection, but there was yeast in the urine. Patient's ketones were also elevated at 8.82. I did speak with Dr. Ashton about possible hospital admission, and he does tentatively accept, I will go ahead and do a chest x-ray for further evaluation. 08/11/21 16:15 Chest x-ray has been performed, and demonstrates no focal abnormalities or signs of infiltrates at this time. 08/11/21 17:42 The patient's repeat blood sugar between IV fluid bags was 487. I did make this known to Dr. Ashton our hospitalist, he would like 5 units insulin IV push, and to have her start a drip at 3 mils per hour. Departure - Departure Time of Disposition: 16:00 Disposition: Admitted As Inpatient 65 Condition: Fair Clinical Impression: Diabetic keto-acidosis Qualifiers: Diabetes mellitus type: type 1 Diabetes mellitus complication detail: without coma Qualified Code(s): E10.10 - Type 1 diabetes mellitus with ketoacidosis without coma - Discharge Information Referrals: Saud Robin MD [Primary Care Provider] - Forms: ED Department Discharge Sepsis Event Note (ED) - Evaluation Sepsis Screening Result: Possible Sepsis Risk - Focused Exam Vital Signs: Vital Signs Temp Pulse Resp BP Pulse Ox 08/11/21 13:01 98.1 F 123 H 14 152/117 H 99 - My Orders Last 24 Hours: My Active Orders 08/11/21 13:10 Communication Order [RC] STAT Sodium Chloride 0.9% [Saline Flush] 10 ml FLUSH ASDIRECTED PRN Blood Culture x2 Reflex Set [OM.PC] Stat Peripheral IV Insertion Adult [OM.PC] Stat 08/11/21 13:11 Peripheral IV Care [RC] . DIRECTED BLOOD CULTURE [MREF] Stat BLOOD CULTURE [MREF] Stat 08/11/21 13:15 Sodium Chloride 0.9% [Normal Saline] 1,000 ml IV ASDIRECTED 08/11/21 15:41 POC Glucose [Blood Glucose Check, Bedside] [RC] ONETIME 08/11/21 15:46 Chest 1V Frontal [CR] Stat 08/11/21 17:33 GLUCOSE,POC [POC] Routine 08/11/21 17:45 Regular Insulin,Human 100 Units in Normal Saline @ 0.1 Units/KG/HR Insulin Regular, Human [HumuLIN R] 100 unit Sodium Chloride 0.9% [Normal Saline] 99 ml IV TITRATE - Assessment/Plan Last 24 Hours: My Active Orders 08/11/21 13:10 Communication Order [RC] STAT Sodium Chloride 0.9% [Saline Flush] 10 ml FLUSH ASDIRECTED PRN Blood Culture x2 Reflex Set [OM.PC] Stat Peripheral IV Insertion Adult [OM.PC] Stat 08/11/21 13:11 Peripheral IV Care [RC] . DIRECTED BLOOD CULTURE [MREF] Stat BLOOD CULTURE [MREF] Stat 08/11/21 13:15 Sodium Chloride 0.9% [Normal Saline] 1,000 ml IV ASDIRECTED 08/11/21 15:41 POC Glucose [Blood Glucose Check, Bedside] [RC] ONETIME 08/11/21 15:46 Chest 1V Frontal [CR] Stat 08/11/21 17:33 GLUCOSE,POC [POC] Routine 08/11/21 17:45 Regular Insulin,Human 100 Units in Normal Saline @ 0.1 Units/KG/HR Insulin Regular, Human [HumuLIN R] 100 unit Sodium Chloride 0.9% [Normal Saline] 99 ml IV TITRATE
[2021-08-11] MEDS ORDERED: Sodium Chloride 0.9% 1,000 ML IV ONE (14:57)
[2021-08-11] MEDS ORDERED: HYDROmorphone 0.5 MG/0.5 ML Syringe IVPUSH ONE (15:16)
[2021-08-11] MEDS ORDERED: Insulin Regular, Human 100 Units/ML 3 ML Vial SUBCUT ONE (17:38)
[2021-08-11] MEDS ORDERED: Insulin Regular, Human 100 Units/ML 3 ML Vial IV ONE (17:41)
--- NOTE | 2021-08-11 17:53 | CR ---
Chest: Portable view of the chest was obtained. Comparison: Prior chest x-ray of 08/18/20. Heart size and mediastinum are within normal limits. Lungs are clear with no acute parenchymal change. Slight scoliosis is noted within the spine. No acute osseous abnormality is appreciated. Impression: 1. Nothing acute is seen on portable chest x-ray. Diagnostic code #2
[2021-08-11] MEDS ORDERED: NS + KCl 20mEq/L 1,000 ML IV SCH (19:00)
[2021-08-11] MEDS: Ondansetron 4 MG/2 ML SDV IVPUSH PRN (20:20)
[2021-08-11] MEDS ORDERED: Ondansetron 4 MG/2 ML SDV IV PRN (20:47)
[2021-08-11] MEDS: Potassium Chloride 10 MEQ in Premix Bag 1 BAG IV SCH ×2 (20:51→22:16)
--- NOTE | 2021-08-11 20:57 | PCM.HP.2 ---
H&P History of Present Illness - General Date of Service: 08/11/21 Admit Problem/Dx: Admission Diagnosis/Problem Admission Diagnosis/Problem Diabetic ketoacidosis - History of Present Illness Initial Comments - Free Text/Narative: 36-year-old type I diabetic with chronic pain well-known to the hospital staff presents to the emergency department with 3 days of nausea, vomiting, and poor blood sugars. Patient states that her dad was hospitalized with type 2 diabetes and blood sugars over thousand which made her very anxious. This is likely the cause her nausea and vomiting and precipitating the current episode. Patient has been hospitalized multiple times for DKA. Patient also has a history of chronic pain and opioid abuse. She is currently on Suboxone, but has not been able to take it for the last day or two. She is also complaining of severe pain mainly in her back. She did receive Dilaudid in the emergency department. Patient did get the Covid vaccine. Other pertinent past medical history includes gastroparesis, cyclic vomiting, GERD, irritable bowel syndrome, anxiety depression patient states that she takes Tresiba 10 units daily and NovoLog 2 to 4 units with each meal. Initial labs in the emergency department: WBC 17.8, hemoglobin 12.7, platelets 265, venous blood gas pH 7.27, blood glucose of 521, ketones 8.8, estimated GFR of 30 with a creatinine of 1.9 and BUN of 59. Potassium 4.4, lactic acid 1.6, UA negative for WBC or leukocyte esterase, budding yeast on urine microscopic exam, Covid negative. Abdominal Pain Score (Numeric/FACES): 10 - Related Data Allergies/Adverse Reactions: Allergies Allergy/AdvReac Type Severity Reaction Status Date / Time latex Allergy Intermediate Hives Verified 08/11/21 13:05 tramadol Allergy Intermediate Hives Verified 08/11/21 13:05 purex laundry soap Allergy Intermediate Hives Uncoded 08/11/21 13:05 Home Medications: Home Meds Buprenorphine HCl/Naloxone HCl [Buprenorphine-Nalox 8-2Mg Film] 20 mg SL DAILY 02/29/20 [History] Insulin Degludec [Tresiba] 10 unit SQ DAILY 09/30/20 [History] Metoclopramide HCl [Reglan] 5 mg PO BID 11/23/20 [History] Omeprazole Magnesium [Prilosec Otc] 20 mg PO BEDTIME 03/29/21 [History] Pantoprazole [ProTONIX] 40 mg PO DAILY 03/29/21 [History] Insulin Aspart [NovoLOG] 3 unit SUBCUT TIDPC 08/11/21 [History] Past Medical History HEENT History: Reports: Other (See Below) Other HEENT History: dysphagia Cardiovascular History: Reports: Hypertension Respiratory History: Reports: PE Gastrointestinal History: Reports: Chronic Diarrhea, GERD, Irritable Bowel S yndrome Other Gastrointestinal History: diarrhea, nausea, LLQ pain 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 History: Reports: Acute Renal Failure MOLD CLEANER History: Reports: Endometriosis, Other OB/BYN History: amenorrhea Musculoskeletal History: Reports: Arthritis, Back Pain, Chronic Other Musculoskeletal History: chronic pain Neurological History: Reports: Headaches, Chronic, Migraines, Seizure Other Neuro History: Diabetic seizure Psychiatric History: Reports: Anxiety, Depression Other Psychiatric History: drug use history Endocrine/Metabolic History: Reports: Diabetes, Type I, Hypokalemia Other Endocrine/Metabolic History: hypokalemia 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 - Past Surgical History GI Surgical History: Reports: Cholecystectomy Other GI Surgeries/Procedures: ileostomy and closure, small bowel resection Female Surgical History: Reports: D&C Endocrine Surgical History: Reports: None Neurological Surgical History: Reports: None Musculoskeletal Surgical History: Reports: None Dermatological Surgical History: Reports: None Social & Family History - Family History Family Medical History: No Pertinent Family History - Tobacco Use Tobacco Use Status *Q: Current Every Day Tobacco User Years of Tobacco use: 20 Packs/Tins Daily: 1 Second Hand Smoke Exposure: No - Caffeine Use Caffeine Use: Reports: Coffee Other Caffeine Use: drinks mellow yellow daily about 3 cans Caffeine Use Comment: unable to assess and verify for now due to condition - Recreational Drug Use Recreational Drug Use: Yes Drug Use in Last 12 Months: Yes Recreational Drug Type: Reports: Marijuana/Hashish Other Recreational Drug Type: uses every other day Recreational Drug Use Frequency: Daily - Living Situation & Occupation Living situation: Reports: Single, with Family Occupation: Unemployed H&P Review of Systems - Review of Systems: Review Of Systems: Comprehensive ROS is negative, except as noted in HPI. Exam - Exam Exam: See Below - Vital Signs Vital Signs: Last Vital Signs Temp 97.5 F 08/11/21 18:36 Pulse 105 H 08/11/21 18:36 Resp 8 L 08/11/21 19:01 BP 166/108 H 08/11/21 19:00 Pulse Ox 77 L 08/11/21 19:01 Weight: 113 lb - Exam Quality Assessment: No: Supplemental Oxygen General: Alert, Oriented, Other (Moderate discomfort from pain) HEENT: Conjunctiva Clear, EOMI, Hearing Intact. No: Mucosa Moist & [place] (Dry) Neck: Supple, Trachea Midline, 2 Lungs: Clear to Auscultation, Normal Respiratory Effort Cardiovascular: Regular Rhythm, Normal S1, Normal S2, Tachycardia. No: Systolic Murmur GI/Abdominal Exam: Normal Bowel Sounds, Soft, Non-Tender, No Organomegaly, No Distention, No Abnormal Bruit, No Mass Extremities: Normal Inspection, Normal Range of Motion, Non-Tender, No Pedal Edema, Normal Capillary Refill Skin: Warm, Dry, Intact Neuro Extensive - Mental Status: Alert, Oriented x3, Normal Mood/Affect, Normal Cognition, Memory Intact Psychiatric: Alert, Normal Affect, Normal Mood - Patient Data Lab Results Last 24 hrs: Laboratory Results - last 24 hr 08/11/21 08/11/21 08/11/21 Range/Units 13:04 13:40 13:40 WBC 17.80 H (3.98-10.04) K/mm3 RBC 4.18 (3.98-5.22) M/mm3 Hgb 12.7 D (11.2-15.7) gm/dl Hct 38.1 (34.1-44.9) % MCV 91.1 (79.4-94.8) fl MCH 30.4 (25.6-32.2) pg MCHC 33.3 (32.2-35.5) g/dl RDW Std Deviation 40.8 (36.4-46.3) fL Plt Count 265 (182-369) K/mm3 MPV 9.3 L (9.4-12.3) fl Neut % (Auto) 89.4 H (34.0-71.1) % Lymph % (Auto) 4.8 L (19.3-51.7) % [place] % (Auto) 5.5 (4.7-12.5) % Eos % (Auto) 0 L (0.7-5.8) Baso % (Auto) 0.1 (0.1-1.2) % Neut # (Auto) 15.91 H (1.56-6.13) K/mm3 Lymph # (Auto) 0.86 L (1.18-3.74) K/mm3 [place] # (Auto) 0.98 H (0.24-0.36) K/mm3 Eos # (Auto) 0.00 L (0.04-0.36) K/mm3 Baso # (Auto) 0.01 (0.01-0.08) K/mm3 VBG pH 7.27 L (7.30-7.40) Sodium (136-145) mEq/L Potassium (3.5-5.1) mEq/L Chloride (98-107) mEq/L Carbon Dioxide (21-32) mEq/L Anion Gap (5-15) BUN (7-18) mg/dL Creatinine (0.55-1.02) mg/dL Est Cr Clr Drug Dosing mL/min Estimated GFR (MDRD) (>60) mL/min BUN/Creatinine Ratio (14-18) Glucose (70-99) mg/dL POC Glucose 477 H* (70-99) mg/dL Lactic Acid (0.4-2.0) mmol/L Calcium (8.5-10.1) mg/dL Phosphorus (2.6-4.7) mg/dL Magnesium (1.8-2.4) mg/dL Total Bilirubin (0.2-1.0) mg/dL AST (15-37) U/L ALT (14-59) U/L Alkaline Phosphatase (46-116) U/L Total Protein (6.4-8.2) g/dl Albumin (3.4-5.0) g/dl Globulin gm/dL Albumin/Globulin Ratio (1-2) Lipase (73-393) U/L Urine Color (Yellow) Urine Appearance (Clear) Urine pH (5.0-8.0) Ur Specific [place] (1.005-1.030) Urine Protein (Negative) Urine Glucose (UA) (Negative) Urine Ketones (Negative) Urine Occult Blood (Negative) Urine Nitrite (Negative) Urine Bilirubin (Negative) Urine Urobilinogen (0.2-1.0) Ur Leukocyte Esterase (Negative) Urine RBC (0-5) /hpf Urine WBC (0-5) /hpf Ur Epithelial Cells (0-5) /hpf Urine Bacteria (FEW) /hpf Urine Mucus (FEW) /hpf Urine Yeast (Budding) (NOT SEEN) Ethyl Alcohol (0.00) gm% Ketones (0.0-0.3) mM SARS-CoV-2 RNA (KIMMY) (NEGATIVE) 08/11/21 08/11/21 08/11/21 Range/Units 13:40 13:40 13:40 WBC (3.98-10.04) K/mm3 RBC (3.98-5.22) M/mm3 Hgb (11.2-15.7) gm/dl Hct (34.1-44.9) % MCV (79.4-94.8) fl MCH (25.6-32.2) pg MCHC (32.2-35.5) g/dl RDW Std Deviation (36.4-46.3) fL Plt Count (182-369) K/mm3 MPV (9.4-12.3) fl Neut % (Auto) (34.0-71.1) % Lymph % (Auto) (19.3-51.7) % [place] % (Auto) (4.7-12.5) % Eos % (Auto) (0.7-5.8) Baso % (Auto) (0.1-1.2) % Neut # (Auto) (1.56-6.13) K/mm3 Lymph # (Auto) (1.18-3.74) K/mm3 [place] # (Auto) (0.24-0.36) K/mm3 Eos # (Auto) (0.04-0.36) K/mm3 Baso # (Auto) (0.01-0.08) K/mm3 VBG pH (7.30-7.40) Sodium 133 L (136-145) mEq/L Potassium 4.4 (3.5-5.1) mEq/L Chloride 94 L (98-107) mEq/L Carbon Dioxide 20 L (21-32) mEq/L Anion Gap 23.4 H (5-15) BUN 59 H D (7-18) mg/dL Creatinine 1.9 H (0.55-1.02) mg/dL Est Cr Clr Drug Dosing 29.03 mL/min Estimated GFR (MDRD) 30 (>60) mL/min BUN/Creatinine Ratio 31.1 H (14-18) Glucose 521 H* (70-99) mg/dL POC Glucose (70-99) mg/dL Lactic Acid (0.4-2.0) mmol/L Calcium 8.8 (8.5-10.1) mg/dL Phosphorus 4.3 (2.6-4.7) mg/dL Magnesium 2.2 (1.8-2.4) mg/dL Total Bilirubin 0.7 (0.2-1.0) mg/dL AST 10 L (15-37) U/L ALT 25 (14-59) U/L Alkaline Phosphatase 81 (46-116) U/L Total Protein 7.2 (6.4-8.2) g/dl Albumin 3.9 (3.4-5.0) g/dl Globulin 3.3 gm/dL Albumin/Globulin Ratio 1.2 (1-2) Lipase 33 L (73-393) U/L Urine Color (Yellow) Urine Appearance (Clear) Urine pH (5.0-8.0) Ur Specific [place] (1.005-1.030) Urine Protein (Negative) Urine Glucose (UA) (Negative) Urine Ketones (Negative) Urine Occult Blood (Negative) Urine Nitrite (Negative) Urine Bilirubin (Negative) Urine Urobilinogen (0.2-1.0) Ur Leukocyte Esterase (Negative) Urine RBC (0-5) /hpf Urine WBC (0-5) /hpf Ur Epithelial Cells (0-5) /hpf Urine Bacteria (FEW) /hpf Urine Mucus (FEW) /hpf Urine Yeast (Budding) (NOT SEEN) Ethyl Alcohol 0.00 (0.00) gm% Ketones 8.82 (0.0-0.3) mM SARS-CoV-2 RNA (KIMMY) (NEGATIVE) 08/11/21 08/11/21 08/11/21 Range/Units 13:50 14:15 15:00 WBC (3.98-10.04) K/mm3 RBC (3.98-5.22) M/mm3 Hgb (11.2-15.7) gm/dl Hct (34.1-44.9) % MCV (79.4-94.8) fl MCH (25.6-32.2) pg MCHC (32.2-35.5) g/dl RDW Std Deviation (36.4-46.3) fL Plt Count (182-369) K/mm3 MPV (9.4-12.3) fl Neut % (Auto) (34.0-71.1) % Lymph % (Auto) (19.3-51.7) % [place] % (Auto) (4.7-12.5) % Eos % (Auto) (0.7-5.8) Baso % (Auto) (0.1-1.2) % Neut # (Auto) (1.56-6.13) K/mm3 Lymph # (Auto) (1.18-3.74) K/mm3 [place] # (Auto) (0.24-0.36) K/mm3 Eos # (Auto) (0.04-0.36) K/mm3 Baso # (Auto) (0.01-0.08) K/mm3 VBG pH (7.30-7.40) Sodium (136-145) mEq/L Potassium (3.5-5.1) mEq/L Chloride (98-107) mEq/L Carbon Dioxide (21-32) mEq/L Anion Gap (5-15) BUN (7-18) mg/dL Creatinine (0.55-1.02) mg/dL Est Cr Clr Drug Dosing mL/min Estimated GFR (MDRD) (>60) mL/min BUN/Creatinine Ratio (14-18) Glucose (70-99) mg/dL POC Glucose (70-99) mg/dL Lactic Acid 1.6 (0.4-2.0) mmol/L Calcium (8.5-10.1) mg/dL Phosphorus (2.6-4.7) mg/dL Magnesium (1.8-2.4) mg/dL Total Bilirubin (0.2-1.0) mg/dL AST (15-37) U/L ALT (14-59) U/L Alkaline Phosphatase (46-116) U/L Total Protein (6.4-8.2) g/dl Albumin (3.4-5.0) g/dl Globulin gm/dL Albumin/Globulin Ratio (1-2) Lipase (73-393) U/L Urine Color Yellow (Yellow) Urine Appearance Clear (Clear) Urine pH 5.5 (5.0-8.0) Ur Specific [place] 1.020 (1.005-1.030) Urine Protein 2+ H (Negative) Urine Glucose (UA) 2+ H (Negative) Urine Ketones 4+ H (Negative) Urine Occult Blood 2+ H (Negative) Urine Nitrite Negative (Negative) Urine Bilirubin 1+ H (Negative) Urine Urobilinogen 0.2 (0.2-1.0) Ur Leukocyte Esterase Negative (Negative) Urine RBC 0-5 (0-5) /hpf Urine WBC 0-5 (0-5) /hpf Ur Epithelial Cells 0-5 (0-5) /hpf Urine Bacteria Few (FEW) /hpf Urine Mucus Not seen (FEW) /hpf Urine Yeast (Budding) Moderate H (NOT SEEN) Ethyl Alcohol (0.00) gm% Ketones (0.0-0.3) mM SARS-CoV-2 RNA (KIMMY) Negative (NEGATIVE) 08/11/21 08/11/21 08/11/21 Range/Units 17:33 18:50 18:50 WBC (3.98-10.04) K/mm3 RBC (3.98-5.22) M/mm3 Hgb (11.2-15.7) gm/dl Hct (34.1-44.9) % MCV (79.4-94.8) fl MCH (25.6-32.2) pg MCHC (32.2-35.5) g/dl RDW Std Deviation (36.4-46.3) fL Plt Count (182-369) K/mm3 MPV (9.4-12.3) fl Neut % (Auto) (34.0-71.1) % Lymph % (Auto) (19.3-51.7) % [place] % (Auto) (4.7-12.5) % Eos % (Auto) (0.7-5.8) Baso % (Auto) (0.1-1.2) % Neut # (Auto) (1.56-6.13) K/mm3 Lymph # (Auto) (1.18-3.74) K/mm3 [place] # (Auto) (0.24-0.36) K/mm3 Eos # (Auto) (0.04-0.36) K/mm3 Baso # (Auto) (0.01-0.08) K/mm3 VBG pH 7.25 L (7.30-7.40) Sodium 139 (136-145) mEq/L Potassium 3.6 (3.5-5.1) mEq/L Chloride 101 (98-107) mEq/L Carbon Dioxide 21 (21-32) mEq/L Anion Gap 20.6 H (5-15) BUN 63 H (7-18) mg/dL Creatinine 1.8 H (0.55-1.02) mg/dL Est Cr Clr Drug Dosing 30.64 mL/min Estimated GFR (MDRD) 32 (>60) mL/min BUN/Creatinine Ratio 35.0 H (14-18) Glucose 400 H (70-99) mg/dL POC Glucose 487 H* (70-99) mg/dL Lactic Acid (0.4-2.0) mmol/L Calcium 8.3 L (8.5-10.1) mg/dL Phosphorus 3.4 (2.6-4.7) mg/dL Magnesium 2.2 (1.8-2.4) mg/dL Total Bilirubin (0.2-1.0) mg/dL AST (15-37) U/L ALT (14-59) U/L Alkaline Phosphatase (46-116) U/L Total Protein (6.4-8.2) g/dl Albumin (3.4-5.0) g/dl Globulin gm/dL Albumin/Globulin Ratio (1-2) Lipase (73-393) U/L Urine Color (Yellow) Urine Appearance (Clear) Urine pH (5.0-8.0) Ur Specific [place] (1.005-1.030) Urine Protein (Negative) Urine Glucose (UA) (Negative) Urine Ketones (Negative) Urine Occult Blood (Negative) Urine Nitrite (Negative) Urine Bilirubin (Negative) Urine Urobilinogen (0.2-1.0) Ur Leukocyte Esterase (Negative) Urine RBC (0-5) /hpf Urine WBC (0-5) /hpf Ur Epithelial Cells (0-5) /hpf Urine Bacteria (FEW) /hpf Urine Mucus (FEW) /hpf Urine Yeast (Budding) (NOT SEEN) Ethyl Alcohol (0.00) gm% Ketones (0.0-0.3) mM SARS-CoV-2 RNA (KIMMY) (NEGATIVE) 08/11/21 08/11/21 Range/Units 19:17 20:15 WBC (3.98-10.04) K/mm3 RBC (3.98-5.22) M/mm3 Hgb (11.2-15.7) gm/dl Hct (34.1-44.9) % MCV (79.4-94.8) fl MCH (25.6-32.2) pg MCHC (32.2-35.5) g/dl RDW Std Deviation (36.4-46.3) fL Plt Count (182-369) K/mm3 MPV (9.4-12.3) fl Neut % (Auto) (34.0-71.1) % Lymph % (Auto) (19.3-51.7) % [place] % (Auto) (4.7-12.5) % Eos % (Auto) (0.7-5.8) Baso % (Auto) (0.1-1.2) % Neut # (Auto) (1.56-6.13) K/mm3 Lymph # (Auto) (1.18-3.74) K/mm3 [place] # (Auto) (0.24-0.36) K/mm3 Eos # (Auto) (0.04-0.36) K/mm3 Baso # (Auto) (0.01-0.08) K/mm3 VBG pH (7.30-7.40) Sodium (136-145) mEq/L Potassium (3.5-5.1) mEq/L Chloride (98-107) mEq/L Carbon Dioxide (21-32) mEq/L Anion Gap (5-15) BUN (7-18) mg/dL Creatinine (0.55-1.02) mg/dL Est Cr Clr Drug Dosing mL/min Estimated GFR (MDRD) (>60) mL/min BUN/Creatinine Ratio (14-18) Glucose (70-99) mg/dL POC Glucose 321 H 278 H (70-99) mg/dL Lactic Acid (0.4-2.0) mmol/L Calcium (8.5-10.1) mg/dL Phosphorus (2.6-4.7) mg/dL Magnesium (1.8-2.4) mg/dL Total Bilirubin (0.2-1.0) mg/dL AST (15-37) U/L ALT (14-59) U/L Alkaline Phosphatase (46-116) U/L Total Protein (6.4-8.2) g/dl Albumin (3.4-5.0) g/dl Globulin gm/dL Albumin/Globulin Ratio (1-2) Lipase (73-393) U/L Urine Color (Yellow) Urine Appearance (Clear) Urine pH (5.0-8.0) Ur Specific [place] (1.005-1.030) Urine Protein (Negative) Urine Glucose (UA) (Negative) Urine Ketones (Negative) Urine Occult Blood (Negative) Urine Nitrite (Negative) Urine Bilirubin (Negative) Urine Urobilinogen (0.2-1.0) Ur Leukocyte Esterase (Negative) Urine RBC (0-5) /hpf Urine WBC (0-5) /hpf Ur Epithelial Cells (0-5) /hpf Urine Bacteria (FEW) /hpf Urine Mucus (FEW) /hpf Urine Yeast (Budding) (NOT SEEN) Ethyl Alcohol (0.00) gm% Ketones (0.0-0.3) mM SARS-CoV-2 RNA (KIMMY) (NEGATIVE) Result Diagrams: 08/11/21 13:40 08/11/21 18:50 Sepsis Event Note - Evaluation Sepsis Screening Result: Possible Sepsis Risk - Focused Exam Vital Signs: Vital Signs Temp Pulse Pulse Resp BP BP Pulse Ox 08/11/21 19:01 8 L 77 L 08/11/21 19:00 12 166/108 H 08/11/21 18:59 10 L 91 L 08/11/21 18:57 9 L 157/106 H 93 L 08/11/21 18:56 17 95 08/11/21 18:37 4 L 158/101 H 96 08/11/21 18:36 97.5 F 105 H 12 158/101 H 96 08/11/21 18:35 91 97 08/11/21 18:34 113 H 97 08/11/21 13:01 98.1 F 123 H 14 152/117 H 99 - Problem List (1) Diabetic ketoacidosis SNOMED Code(s): 629419856, 452277636 ICD Code: E11.10 - TYPE 2 DIABETES MELLITUS WITH KETOACIDOSIS WITHOUT COMA Status: Acute Priority: High Current Visit: Yes Qualifiers: Diabetes mellitus type: type 1 Diabetes mellitus complication detail: without coma Qualified Code(s): E10.10 - Type 1 diabetes mellitus with ketoacidosis without coma (2) Nausea and vomiting SNOMED Code(s): 11381881 ICD Code: R11.2 - NAUSEA WITH VOMITING, UNSPECIFIED Status: Acute Priority: High Current Visit: No Qualifiers: Vomiting type: unspecified Vomiting Intractability: non-intractable Qualified Code(s): R11.2 - Nausea with vomiting, unspecified (3) Chronic back pain SNOMED Code(s): 076330916 ICD Code: M54.9 - DORSALGIA, UNSPECIFIED; G89.29 - OTHER CHRONIC PAIN Status: Chronic Priority: Low Current Visit: No Qualifiers: Back pain location: back pain in unspecified location Back pain laterality: unspecified Qualified Code(s): M54.9 - Dorsalgia, unspecified; G89.29 - Other chronic pain; G89.29 - Other chronic pain (4) Renal insufficiency SNOMED Code(s): 429142630, 129691300 ICD Code: N28.9 - DISORDER OF KIDNEY AND URETER, UNSPECIFIED Status: Resolved Current Visit: No Problem List Initiated/Reviewed/Updated: Yes Orders Last 24hrs: Active Orders 24 hr Category Date Time Status Patient Status [ADT] Routine ADT 08/11/21 18:52 Active Communication Order [RC] ASDIRECTED Care 08/11/21 20:32 Active Communication Order [RC] STAT Care 08/11/21 13:10 Active Oxygen Therapy [RC] PRN Care 08/11/21 20:47 Ordered POC Glucose [Blood Glucose Check, Bedside] [RC] Q1HR Care 08/11/21 15:41 Active Up With Assistance [RC] ASDIRECTED Care 08/11/21 20:47 Ordered VTE/DVT Education [RC] PER UNIT ROUTINE Care 08/11/21 20:47 Ordered Vital Signs [RC] ASDIRECTED Care 08/11/21 20:47 Ordered Nothing per Oral Now Diet [DIET] Diet 08/11/21 Dinner Ordered BASIC METABOLIC PANEL,BMP [CHEM] Urgent Lab 08/11/21 22:00 Ordered BLOOD CULTURE [MREF] Stat Lab 08/11/21 13:40 Received BLOOD CULTURE [MREF] Stat Lab 08/11/21 13:50 Received MAGNESIUM [CHEM] Urgent Lab 08/11/21 22:00 Ordered PHOSPHORUS [CHEM] Urgent Lab 08/11/21 22:00 Ordered PROCALCITONIN [REF] Routine Lab 08/11/21 18:50 Received Enoxaparin [Lovenox] Med 08/12/21 09:00 Ordered 40 mg SUBCUT DAILY HYDROmorphone [Dilaudid] Med 08/11/21 20:40 Ordered 1 mg IVPUSH Q2H PRN Insulin Regular, Human [HumuLIN R] 100 unit Med 08/11/21 17:45 Active Sodium Chloride 0.9% [Normal Saline] 99 ml IV TITRATE NS + KCl 20mEq/L [Normal Saline with 20 mEq KCl] 1,000 Med 08/11/21 19:00 Active ml IV ASDIRECTED Ondansetron [Zofran] Med 08/11/21 19:26 Active 4 mg IVPUSH Q4HR PRN Pantoprazole [ProTONIX] Med 08/12/21 09:00 Ordered 40 mg PO DAILY Potassium Chloride [KCl in Water 10 MEQ/100 ML] 10 meq Med 08/11/21 20:45 Ordered Premix Bag 1 bag IV Q1H Sodium Chloride 0.9% [Normal Saline] 1,000 ml Med 08/11/21 13:15 Active IV ASDIRECTED Sodium Chloride 0.9% [Saline Flush] Med 08/11/21 13:10 Active 10 ml FLUSH ASDIRECTED PRN Blood Culture x2 Reflex Set [OM.PC] Stat Oth 08/11/21 13:10 Ordered Peripheral IV Insertion Adult [OM.PC] Stat Oth 08/11/21 13:10 Ordered Resuscitation Status Routine Resus Stat 08/11/21 19:10 Ordered Medication Orders Enoxaparin Sodium (Enoxaparin 40 Mg/0.4 Ml Syringe) 40 mg SUBCUT DAILY TONIO Hydromorphone HCl (Hydromorphone 1 Mg/Ml Syringe) 1 mg IVPUSH Q2H PRN PRN Reason: Pain (severe 7-10) Sodium Chloride (Normal Saline) 1,000 mls @ 999 mls/hr IV ASDIRECTED TONIO Last Admin: 08/11/21 17:30 Dose: 999 mls/hr Documented by: RANJANA Insulin Human Regular 100 unit (/ Sodium Chloride) 100 mls @ 4.536 mls/hr IV TITRATE TONIO; Protocol Last Titration: 08/11/21 19:22 Dose: 0.05 units/kg/hr, 2.3 mls/hr Documented by: KENDRICK Cosigned by: GAIL Titration: 08/11/21 17:51 Dose: 0.07 units/kg/hr, 3 mls/hr Documented by: RANJANA Cosigned by: MARGARITA Admin: 08/11/21 17:51 Dose: 0.1 units/kg/hr, 4.536 mls/hr Documented by: RANJANA Cosigned by: MARGARITA Potassium Chloride/Sodium Chloride (Normal Saline With 20 Meq Kcl) 1,000 mls @ 250 mls/hr IV ASDIRECTED TONIO Last Admin: 08/11/21 19:15 Dose: 250 mls/hr Documented by: KENDRICK Potassium Chloride 10 meq/ (Premix) 100 mls @ 100 mls/hr IV Q1H TONIO Stop: 08/11/21 22:44 Last Admin: 08/11/21 20:51 Dose: 100 mls/hr Documented by: GAIL Ondansetron HCl (Ondansetron 4 Mg/2 Ml Sdv) 4 mg IVPUSH Q4HR PRN PRN Reason: Nausea Last Admin: 08/11/21 20:20 Dose: 4 mg Documented by: GAIL Pantoprazole Sodium (Pantoprazole 40 Mg Tab.Cr) 40 mg PO DAILY TONIO Sodium Chloride (Sodium Chloride 0.9% 10 Ml Syringe) 10 ml FLUSH ASDIRECTED PRN PRN Reason: Keep Vein Open Last Admin: 08/11/21 13:40 Dose: 10 ml Documented by: RANJANA Assessment/Plan Comment:: 36-year-old female with history of type 1 diabetes and recurrent DKA presents with nausea, vomiting, and hyperglycemia. Diabetic ketoacidosis Nausea and vomiting for 3 days secondary to stress causing hypovolemia elevated blood sugars, renal insufficiency and ketosis. Initial blood sugars 521 with venous pH of 7.27 and ketones of 8.8 -Given 1 L of normal saline in the emergency department and started on a second prior to transfer to the ICU -Given IV bolus of normal insulin 5 units in the ED and started on an insulin drip at 3 units/h -Continue insulin drip, diabetic ketoacidosis protocol, normal saline with 20 mEq KCl at 250 mL/h until blood sugars are between 200-250 then switch to D5 half-normal saline with 20 mEq KCl. -Give extra 20 mEq KCl IV -Follow BMP, mag, Phos daily 4 hours -Continue insulin drip and D5 half-normal saline with 20 mEq KCl until anion gap closes and ketones resolved -Restart home meds of Tresiba 10 units daily and NovoLog 2 to 4 units with each meal when DKA resolves and she is able to take orally Acute renal insufficiency secondary to hypovolemia Diabetic nephropathy with history of proteinuria -Aggressive IV hydration -Follow BMP every 4 hours initially -She states she is not currently on antihypertensives. -Initial blood pressure both in the emergency department and in the ICU were significantly elevated -Follow blood pressure closely. Chronic back pain History of opioid abuse on Suboxone -Initially treated her with Dilaudid 1 mg every 2 hours as needed pain. -Patient is n.p.o. and we do not have Suboxone. -Because of her Suboxone and chronic use of narcotics she is more resistant to the opioid effects. -Try to restart her Suboxone as soon as possible. Cyclic vomiting Anxiety and depression -Patient has had significant improvement with Zofran and hydration -Zofran 4 mg IV every 4 hours as needed VTE prophylaxis with Lovenox CODE STATUS: Full code - Mortality Measure Prognosis:: Good
[2021-08-11] MEDS: HYDROmorphone 1 MG/ML Syringe IVPUSH PRN (22:16)
[2021-08-11] MEDS: D5 1/2 NS w/ 20 mEq/L KCl 1,000 ML IV SCH (23:16)
[2021-08-12] MEDS: Ondansetron 4 MG/2 ML SDV IVPUSH PRN ×3 (00:15→12:04)
[2021-08-12] MEDS: HYDROmorphone 1 MG/ML Syringe IVPUSH PRN ×6 (00:15→12:05)
[2021-08-12] MEDS: D5 1/2 NS w/ 20 mEq/L KCl 1,000 ML IV SCH (03:37)
[2021-08-12 07:52] LABS: HEMOGLOBIN A1C 9.3 %
[2021-08-12] MEDS ORDERED: Metoclopramide 10 MG/2 ML SDV IVPUSH PRN (08:27)
[2021-08-12] MEDS ORDERED: Insulin Glarg,Human.Rec.Analog 100 Unit/ML SUBCUT ONE (08:27)
[2021-08-12] MEDS ORDERED: Acetaminophen/HYDROcodone 325-5 MG Tab PO PRN (08:29)
[2021-08-12] MEDS ORDERED: Enoxaparin 40 MG/0.4 ML Syringe SUBCUT SCH (09:00)
[2021-08-12] MEDS ORDERED: Pantoprazole 40 MG Tab.CR PO SCH (09:00)
--- NOTE | 2021-08-12 10:45 | PCM.DCSUM1 ---
Discharge Summary - Hospital Course Free Text/Narrative:: Melvi is a 36-year-old type I diabetic with chronic pain well-known to the hospital staff who presented to the emergency department with 3 days of nausea, vomiting, and elevated blood sugars. Patient has been hospitalized multiple times for DKA. Other pertinent past medical history includes gastroparesis, cyclic vomiting, GERD, irritable bowel syndrome, anxiety depression patient states that she takes Tresiba 10 units daily and NovoLog 2 to 4 units with each meal. Initial labs in the emergency department: WBC 17.8, hemoglobin 12.7, platelets 265, venous blood gas pH 7.27, blood glucose of 521, ketones 8.8, estimated GFR of 30 with a creatinine of 1.9 and BUN of 59. Potassium 4.4, lactic acid 1.6, UA negative for WBC or leukocyte esterase, budding yeast on urine microscopic exam, Covid negative. She was treated with IV insulin and IVF's. Her acidosis resolved and she was transitioned to SQ insulin. She received anti nausea medications and was started on a diet. She was later discharged home in a stable condition. Activity: as tolerated. Diet: Diabetic diet Follow up with PCP in 1 wk Discharge time was 35 mins Physical Exam: General: Thin young female. Awake and alert. In no acute distress CVS: S1S2 appreciated. RRR lungs: clear bilaterally pa: soft, non tender. bowel sounds present ext: no clubbing, cyanosis or edema neuro: no focal deficits. Diagnosis: Stroke: No - Discharge Data Discharge Date: 08/12/21 Discharge Disposition: Home, Self-Care 01 Condition: Stable - Referral to Home Health Primary Care Physician: Saud Medrano MD - Discharge Diagnosis/Problem(s) (1) Diabetic ketoacidosis SNOMED Code(s): 787600400, 158317066 ICD Code: E11.10 - TYPE 2 DIABETES MELLITUS WITH KETOACIDOSIS WITHOUT COMA Status: Acute Priority: High Current Visit: Yes Qualifiers: Diabetes mellitus type: type 1 Diabetes mellitus complication detail: without coma Qualified Code(s): E10.10 - Type 1 diabetes mellitus with ketoacidosis without coma (2) High anion gap metabolic acidosis SNOMED Code(s): 29906772 ICD Code: E87.2 - ACIDOSIS Status: Acute Priority: High Current Visit: No (3) Hyperglycemia due to type 1 diabetes mellitus SNOMED Code(s): 365356637056004, 143003770527722 ICD Code: E10.65 - TYPE 1 DIABETES MELLITUS WITH HYPERGLYCEMIA Status: Acute Current Visit: No (4) Nausea and vomiting SNOMED Code(s): 88625039 ICD Code: R11.2 - NAUSEA WITH VOMITING, UNSPECIFIED Status: Acute Priority: High Current Visit: No Qualifiers: Vomiting type: unspecified Vomiting Intractability: non-intractable Qualified Code(s): R11.2 - Nausea with vomiting, unspecified - Patient Instructions Diet: Diabetic Diet - Discharge Plan *PRESCRIPTION DRUG MONITORING PROGRAM REVIEWED*: No *COPY OF PRESCRIPTION DRUG MONITORING REPORT IN PATIENT TANNER: No Home Medications: Home Meds Buprenorphine HCl/Naloxone HCl [Buprenorphine-Nalox 8-2Mg Film] 20 mg SL DAILY 02/29/20 [History] Insulin Degludec [Tresiba] 10 unit SQ DAILY 09/30/20 [History] Metoclopramide HCl [Reglan] 5 mg PO BID 11/23/20 [History] Omeprazole Magnesium [Prilosec Otc] 20 mg PO BEDTIME 03/29/21 [History] Pantoprazole [ProTONIX] 40 mg PO DAILY 03/29/21 [History] Insulin Aspart [NovoLOG] 3 unit SUBCUT TIDPC 08/11/21 [History] Oxygen Therapy Mode: Room Air Forms: ED Department Discharge Referrals: Saud Robin MD [Primary Care Provider] - - Discharge Summary/Plan Comment DC Time >30 min.: Yes ( 35 mins) Total # of Minutes for Discharge Time: 35 mins - Patient Data Vitals - Most Recent: Last Vital Signs Temp 97.2 F 08/12/21 08:00 Pulse 105 H 08/11/21 18:36 Resp 14 08/12/21 09:00 BP 139/98 H 08/12/21 08:01 Pulse Ox 96 08/12/21 09:00 Weight - Most Recent: 115 lb 8 oz I&O - Last 24 hours: Intake & Output 08/11/21 08/12/21 08/12/21 22:59 06:59 14:59 Intake Total 2511 Balance 2511 Lab Results - Last 24 hrs: Laboratory Results - last 24 hr 08/11/21 08/11/21 08/11/21 Range/Units 13:04 13:40 13:40 WBC 17.80 H (3.98-10.04) K/mm3 RBC 4.18 (3.98-5.22) M/mm3 Hgb 12.7 D (11.2-15.7) gm/dl Hct 38.1 (34.1-44.9) % MCV 91.1 (79.4-94.8) fl MCH 30.4 (25.6-32.2) pg MCHC 33.3 (32.2-35.5) g/dl RDW Std Deviation 40.8 (36.4-46.3) fL Plt Count 265 (182-369) K/mm3 MPV 9.3 L (9.4-12.3) fl Neut % (Auto) 89.4 H (34.0-71.1) % Lymph % (Auto) 4.8 L (19.3-51.7) % [place] % (Auto) 5.5 (4.7-12.5) % Eos % (Auto) 0 L (0.7-5.8) Baso % (Auto) 0.1 (0.1-1.2) % Neut # (Auto) 15.91 H (1.56-6.13) K/mm3 Lymph # (Auto) 0.86 L (1.18-3.74) K/mm3 [place] # (Auto) 0.98 H (0.24-0.36) K/mm3 Eos # (Auto) 0.00 L (0.04-0.36) K/mm3 Baso # (Auto) 0.01 (0.01-0.08) K/mm3 VBG pH 7.27 L (7.30-7.40) Sodium (136-145) mEq/L Potassium (3.5-5.1) mEq/L Chloride (98-107) mEq/L Carbon Dioxide (21-32) mEq/L Anion Gap (5-15) BUN (7-18) mg/dL Creatinine (0.55-1.02) mg/dL Est Cr Clr Drug Dosing mL/min Estimated GFR (MDRD) (>60) mL/min BUN/Creatinine Ratio (14-18) Glucose (70-99) mg/dL POC Glucose 477 H* (70-99) mg/dL Hemoglobin A1c ( - 5.6) % Lactic Acid (0.4-2.0) mmol/L Calcium (8.5-10.1) mg/dL Phosphorus (2.6-4.7) mg/dL Magnesium (1.8-2.4) mg/dL Total Bilirubin (0.2-1.0) mg/dL AST (15-37) U/L ALT (14-59) U/L Alkaline Phosphatase (46-116) U/L Total Protein (6.4-8.2) g/dl Albumin (3.4-5.0) g/dl Globulin gm/dL Albumin/Globulin Ratio (1-2) Lipase (73-393) U/L Procalcitonin ng/mL Urine Color (Yellow) Urine Appearance (Clear) Urine pH (5.0-8.0) Ur Specific [place] (1.005-1.030) Urine Protein (Negative) Urine Glucose (UA) (Negative) Urine Ketones (Negative) Urine Occult Blood (Negative) Urine Nitrite (Negative) Urine Bilirubin (Negative) Urine Urobilinogen (0.2-1.0) Ur Leukocyte Esterase (Negative) Urine RBC (0-5) /hpf Urine WBC (0-5) /hpf Ur Epithelial Cells (0-5) /hpf Urine Bacteria (FEW) /hpf Urine Mucus (FEW) /hpf Urine Yeast (Budding) (NOT SEEN) Ethyl Alcohol (0.00) gm% Ketones (0.0-0.3) mM SARS-CoV-2 RNA (KIMMY) (NEGATIVE) 08/11/21 08/11/21 08/11/21 Range/Units 13:40 13:40 13:40 WBC (3.98-10.04) K/mm3 RBC (3.98-5.22) M/mm3 Hgb (11.2-15.7) gm/dl Hct (34.1-44.9) % MCV (79.4-94.8) fl MCH (25.6-32.2) pg MCHC (32.2-35.5) g/dl RDW Std Deviation (36.4-46.3) fL Plt Count (182-369) K/mm3 MPV (9.4-12.3) fl Neut % (Auto) (34.0-71.1) % Lymph % (Auto) (19.3-51.7) % [place] % (Auto) (4.7-12.5) % Eos % (Auto) (0.7-5.8) Baso % (Auto) (0.1-1.2) % Neut # (Auto) (1.56-6.13) K/mm3 Lymph # (Auto) (1.18-3.74) K/mm3 [place] # (Auto) (0.24-0.36) K/mm3 Eos # (Auto) (0.04-0.36) K/mm3 Baso # (Auto) (0.01-0.08) K/mm3 VBG pH (7.30-7.40) Sodium 133 L (136-145) mEq/L Potassium 4.4 (3.5-5.1) mEq/L Chloride 94 L (98-107) mEq/L Carbon Dioxide 20 L (21-32) mEq/L Anion Gap 23.4 H (5-15) BUN 59 H D (7-18) mg/dL Creatinine 1.9 H (0.55-1.02) mg/dL Est Cr Clr Drug Dosing 29.03 mL/min Estimated GFR (MDRD) 30 (>60) mL/min BUN/Creatinine Ratio 31.1 H (14-18) Glucose 521 H* (70-99) mg/dL POC Glucose (70-99) mg/dL Hemoglobin A1c ( - 5.6) % Lactic Acid (0.4-2.0) mmol/L Calcium 8.8 (8.5-10.1) mg/dL Phosphorus 4.3 (2.6-4.7) mg/dL Magnesium 2.2 (1.8-2.4) mg/dL Total Bilirubin 0.7 (0.2-1.0) mg/dL AST 10 L (15-37) U/L ALT 25 (14-59) U/L Alkaline Phosphatase 81 (46-116) U/L Total Protein 7.2 (6.4-8.2) g/dl Albumin 3.9 (3.4-5.0) g/dl Globulin 3.3 gm/dL Albumin/Globulin Ratio 1.2 (1-2) Lipase 33 L (73-393) U/L Procalcitonin ng/mL Urine Color (Yellow) Urine Appearance (Clear) Urine pH (5.0-8.0) Ur Specific [place] (1.005-1.030) Urine Protein (Negative) Urine Glucose (UA) (Negative) Urine Ketones (Negative) Urine Occult Blood (Negative) Urine Nitrite (Negative) Urine Bilirubin (Negative) Urine Urobilinogen (0.2-1.0) Ur Leukocyte Esterase (Negative) Urine RBC (0-5) /hpf Urine WBC (0-5) /hpf Ur Epithelial Cells (0-5) /hpf Urine Bacteria (FEW) /hpf Urine Mucus (FEW) /hpf Urine Yeast (Budding) (NOT SEEN) Ethyl Alcohol 0.00 (0.00) gm% Ketones 8.82 (0.0-0.3) mM SARS-CoV-2 RNA (KIMMY) (NEGATIVE) 08/11/21 08/11/21 08/11/21 Range/Units 13:50 14:15 15:00 WBC (3.98-10.04) K/mm3 RBC (3.98-5.22) M/mm3 Hgb (11.2-15.7) gm/dl Hct (34.1-44.9) % MCV (79.4-94.8) fl MCH (25.6-32.2) pg MCHC (32.2-35.5) g/dl RDW Std Deviation (36.4-46.3) fL Plt Count (182-369) K/mm3 MPV (9.4-12.3) fl Neut % (Auto) (34.0-71.1) % Lymph % (Auto) (19.3-51.7) % [place] % (Auto) (4.7-12.5) % Eos % (Auto) (0.7-5.8) Baso % (Auto) (0.1-1.2) % Neut # (Auto) (1.56-6.13) K/mm3 Lymph # (Auto) (1.18-3.74) K/mm3 [place] # (Auto) (0.24-0.36) K/mm3 Eos # (Auto) (0.04-0.36) K/mm3 Baso # (Auto) (0.01-0.08) K/mm3 VBG pH (7.30-7.40) Sodium (136-145) mEq/L Potassium (3.5-5.1) mEq/L Chloride (98-107) mEq/L Carbon Dioxide (21-32) mEq/L Anion Gap (5-15) BUN (7-18) mg/dL Creatinine (0.55-1.02) mg/dL Est Cr Clr Drug Dosing mL/min Estimated GFR (MDRD) (>60) mL/min BUN/Creatinine Ratio (14-18) Glucose (70-99) mg/dL POC Glucose (70-99) mg/dL Hemoglobin A1c ( - 5.6) % Lactic Acid 1.6 (0.4-2.0) mmol/L Calcium (8.5-10.1) mg/dL Phosphorus (2.6-4.7) mg/dL Magnesium (1.8-2.4) mg/dL Total Bilirubin (0.2-1.0) mg/dL AST (15-37) U/L ALT (14-59) U/L Alkaline Phosphatase (46-116) U/L Total Protein (6.4-8.2) g/dl Albumin (3.4-5.0) g/dl Globulin gm/dL Albumin/Globulin Ratio (1-2) Lipase (73-393) U/L Procalcitonin ng/mL Urine Color Yellow (Yellow) Urine Appearance Clear (Clear) Urine pH 5.5 (5.0-8.0) Ur Specific [place] 1.020 (1.005-1.030) Urine Protein 2+ H (Negative) Urine Glucose (UA) 2+ H (Negative) Urine Ketones 4+ H (Negative) Urine Occult Blood 2+ H (Negative) Urine Nitrite Negative (Negative) Urine Bilirubin 1+ H (Negative) Urine Urobilinogen 0.2 (0.2-1.0) Ur Leukocyte Esterase Negative (Negative) Urine RBC 0-5 (0-5) /hpf Urine WBC 0-5 (0-5) /hpf Ur Epithelial Cells 0-5 (0-5) /hpf Urine Bacteria Few (FEW) /hpf Urine Mucus Not seen (FEW) /hpf Urine Yeast (Budding) Moderate H (NOT SEEN) Ethyl Alcohol (0.00) gm% Ketones (0.0-0.3) mM SARS-CoV-2 RNA (KIMMY) Negative (NEGATIVE) 08/11/21 08/11/21 08/11/21 Range/Units 17:33 18:50 18:50 WBC (3.98-10.04) K/mm3 RBC (3.98-5.22) M/mm3 Hgb (11.2-15.7) gm/dl Hct (34.1-44.9) % MCV (79.4-94.8) fl MCH (25.6-32.2) pg MCHC (32.2-35.5) g/dl RDW Std Deviation (36.4-46.3) fL Plt Count (182-369) K/mm3 MPV (9.4-12.3) fl Neut % (Auto) (34.0-71.1) % Lymph % (Auto) (19.3-51.7) % [place] % (Auto) (4.7-12.5) % Eos % (Auto) (0.7-5.8) Baso % (Auto) (0.1-1.2) % Neut # (Auto) (1.56-6.13) K/mm3 Lymph # (Auto) (1.18-3.74) K/mm3 [place] # (Auto) (0.24-0.36) K/mm3 Eos # (Auto) (0.04-0.36) K/mm3 Baso # (Auto) (0.01-0.08) K/mm3 VBG pH (7.30-7.40) Sodium 139 (136-145) mEq/L Potassium 3.6 (3.5-5.1) mEq/L Chloride 101 (98-107) mEq/L Carbon Dioxide 21 (21-32) mEq/L Anion Gap 20.6 H (5-15) BUN 63 H (7-18) mg/dL Creatinine 1.8 H (0.55-1.02) mg/dL Est Cr Clr Drug Dosing 30.64 mL/min Estimated GFR (MDRD) 32 (>60) mL/min BUN/Creatinine Ratio 35.0 H (14-18) Glucose 400 H (70-99) mg/dL POC Glucose 487 H* (70-99) mg/dL Hemoglobin A1c ( - 5.6) % Lactic Acid (0.4-2.0) mmol/L Calcium 8.3 L (8.5-10.1) mg/dL Phosphorus 3.4 (2.6-4.7) mg/dL Magnesium 2.2 (1.8-2.4) mg/dL Total Bilirubin (0.2-1.0) mg/dL AST (15-37) U/L ALT (14-59) U/L Alkaline Phosphatase (46-116) U/L Total Protein (6.4-8.2) g/dl Albumin (3.4-5.0) g/dl Globulin gm/dL Albumin/Globulin Ratio (1-2) Lipase (73-393) U/L Procalcitonin 1.48 H ng/mL Urine Color (Yellow) Urine Appearance (Clear) Urine pH (5.0-8.0) Ur Specific [place] (1.005-1.030) Urine Protein (Negative) Urine Glucose (UA) (Negative) Urine Ketones (Negative) Urine Occult Blood (Negative) Urine Nitrite (Negative) Urine Bilirubin (Negative) Urine Urobilinogen (0.2-1.0) Ur Leukocyte Esterase (Negative) Urine RBC (0-5) /hpf Urine WBC (0-5) /hpf Ur Epithelial Cells (0-5) /hpf Urine Bacteria (FEW) /hpf Urine Mucus (FEW) /hpf Urine Yeast (Budding) (NOT SEEN) Ethyl Alcohol (0.00) gm% Ketones (0.0-0.3) mM SARS-CoV-2 RNA (KIMMY) (NEGATIVE) 08/11/21 08/11/21 08/11/21 Range/Units 18:50 19:17 20:15 WBC (3.98-10.04) K/mm3 RBC (3.98-5.22) M/mm3 Hgb (11.2-15.7) gm/dl Hct (34.1-44.9) % MCV (79.4-94.8) fl MCH (25.6-32.2) pg MCHC (32.2-35.5) g/dl RDW Std Deviation (36.4-46.3) fL Plt Count (182-369) K/mm3 MPV (9.4-12.3) fl Neut % (Auto) (34.0-71.1) % Lymph % (Auto) (19.3-51.7) % [place] % (Auto) (4.7-12.5) % Eos % (Auto) (0.7-5.8) Baso % (Auto) (0.1-1.2) % Neut # (Auto) (1.56-6.13) K/mm3 Lymph # (Auto) (1.18-3.74) K/mm3 [place] # (Auto) (0.24-0.36) K/mm3 Eos # (Auto) (0.04-0.36) K/mm3 Baso # (Auto) (0.01-0.08) K/mm3 VBG pH 7.25 L (7.30-7.40) Sodium (136-145) mEq/L Potassium (3.5-5.1) mEq/L Chloride (98-107) mEq/L Carbon Dioxide (21-32) mEq/L Anion Gap (5-15) BUN (7-18) mg/dL Creatinine (0.55-1.02) mg/dL Est Cr Clr Drug Dosing mL/min Estimated GFR (MDRD) (>60) mL/min BUN/Creatinine Ratio (14-18) Glucose (70-99) mg/dL POC Glucose 321 H 278 H (70-99) mg/dL Hemoglobin A1c ( - 5.6) % Lactic Acid (0.4-2.0) mmol/L Calcium (8.5-10.1) mg/dL Phosphorus (2.6-4.7) mg/dL Magnesium (1.8-2.4) mg/dL Total Bilirubin (0.2-1.0) mg/dL AST (15-37) U/L ALT (14-59) U/L Alkaline Phosphatase (46-116) U/L Total Protein (6.4-8.2) g/dl Albumin (3.4-5.0) g/dl Globulin gm/dL Albumin/Globulin Ratio (1-2) Lipase (73-393) U/L Procalcitonin ng/mL Urine Color (Yellow) Urine Appearance (Clear) Urine pH (5.0-8.0) Ur Specific [place] (1.005-1.030) Urine Protein (Negative) Urine Glucose (UA) (Negative) Urine Ketones (Negative) Urine Occult Blood (Negative) Urine Nitrite (Negative) Urine Bilirubin (Negative) Urine Urobilinogen (0.2-1.0) Ur Leukocyte Esterase (Negative) Urine RBC (0-5) /hpf Urine WBC (0-5) /hpf Ur Epithelial Cells (0-5) /hpf Urine Bacteria (FEW) /hpf Urine Mucus (FEW) /hpf Urine Yeast (Budding) (NOT SEEN) Ethyl Alcohol (0.00) gm% Ketones (0.0-0.3) mM SARS-CoV-2 RNA (KIMMY) (NEGATIVE) 08/11/21 08/11/21 08/11/21 Range/Units 20:57 22:05 22:05 WBC (3.98-10.04) K/mm3 RBC (3.98-5.22) M/mm3 Hgb (11.2-15.7) gm/dl Hct (34.1-44.9) % MCV (79.4-94.8) fl MCH (25.6-32.2) pg MCHC (32.2-35.5) g/dl RDW Std Deviation (36.4-46.3) fL Plt Count (182-369) K/mm3 MPV (9.4-12.3) fl Neut % (Auto) (34.0-71.1) % Lymph % (Auto) (19.3-51.7) % [place] % (Auto) (4.7-12.5) % Eos % (Auto) (0.7-5.8) Baso % (Auto) (0.1-1.2) % Neut # (Auto) (1.56-6.13) K/mm3 Lymph # (Auto) (1.18-3.74) K/mm3 [place] # (Auto) (0.24-0.36) K/mm3 Eos # (Auto) (0.04-0.36) K/mm3 Baso # (Auto) (0.01-0.08) K/mm3 VBG pH (7.30-7.40) Sodium 139 (136-145) mEq/L Potassium 4.8 (3.5-5.1) mEq/L Chloride 105 (98-107) mEq/L Carbon Dioxide 22 (21-32) mEq/L Anion Gap 16.8 H (5-15) BUN 57 H (7-18) mg/dL Creatinine 1.4 H (0.55-1.02) mg/dL Est Cr Clr Drug Dosing 44.52 mL/min Estimated GFR (MDRD) 42 (>60) mL/min BUN/Creatinine Ratio 40.7 H (14-18) Glucose 275 H (70-99) mg/dL POC Glucose 254 H 265 H (70-99) mg/dL Hemoglobin A1c ( - 5.6) % Lactic Acid (0.4-2.0) mmol/L Calcium 8.1 L (8.5-10.1) mg/dL Phosphorus 2.6 (2.6-4.7) mg/dL Magnesium 2.0 (1.8-2.4) mg/dL Total Bilirubin (0.2-1.0) mg/dL AST (15-37) U/L ALT (14-59) U/L Alkaline Phosphatase (46-116) U/L Total Protein (6.4-8.2) g/dl Albumin (3.4-5.0) g/dl Globulin gm/dL Albumin/Globulin Ratio (1-2) Lipase (73-393) U/L Procalcitonin ng/mL Urine Color (Yellow) Urine Appearance (Clear) Urine pH (5.0-8.0) Ur Specific [place] (1.005-1.030) Urine Protein (Negative) Urine Glucose (UA) (Negative) Urine Ketones (Negative) Urine Occult Blood (Negative) Urine Nitrite (Negative) Urine Bilirubin (Negative) Urine Urobilinogen (0.2-1.0) Ur Leukocyte Esterase (Negative) Urine RBC (0-5) /hpf Urine WBC (0-5) /hpf Ur Epithelial Cells (0-5) /hpf Urine Bacteria (FEW) /hpf Urine Mucus (FEW) /hpf Urine Yeast (Budding) (NOT SEEN) Ethyl Alcohol (0.00) gm% Ketones (0.0-0.3) mM SARS-CoV-2 RNA (KIMMY) (NEGATIVE) 08/11/21 08/11/21 08/12/21 Range/Units 22:45 23:52 00:56 WBC (3.98-10.04) K/mm3 RBC (3.98-5.22) M/mm3 Hgb (11.2-15.7) gm/dl Hct (34.1-44.9) % MCV (79.4-94.8) fl MCH (25.6-32.2) pg MCHC (32.2-35.5) g/dl RDW Std Deviation (36.4-46.3) fL Plt Count (182-369) K/mm3 MPV (9.4-12.3) fl Neut % (Auto) (34.0-71.1) % Lymph % (Auto) (19.3-51.7) % [place] % (Auto) (4.7-12.5) % Eos % (Auto) (0.7-5.8) Baso % (Auto) (0.1-1.2) % Neut # (Auto) (1.56-6.13) K/mm3 Lymph # (Auto) (1.18-3.74) K/mm3 [place] # (Auto) (0.24-0.36) K/mm3 Eos # (Auto) (0.04-0.36) K/mm3 Baso # (Auto) (0.01-0.08) K/mm3 VBG pH (7.30-7.40) Sodium (136-145) mEq/L Potassium (3.5-5.1) mEq/L Chloride (98-107) mEq/L Carbon Dioxide (21-32) mEq/L Anion Gap (5-15) BUN (7-18) mg/dL Creatinine (0.55-1.02) mg/dL Est Cr Clr Drug Dosing mL/min Estimated GFR (MDRD) (>60) mL/min BUN/Creatinine Ratio (14-18) Glucose (70-99) mg/dL POC Glucose 208 H 217 H 280 H (70-99) mg/dL Hemoglobin A1c ( - 5.6) % Lactic Acid (0.4-2.0) mmol/L Calcium (8.5-10.1) mg/dL Phosphorus (2.6-4.7) mg/dL Magnesium (1.8-2.4) mg/dL Total Bilirubin (0.2-1.0) mg/dL AST (15-37) U/L ALT (14-59) U/L Alkaline Phosphatase (46-116) U/L Total Protein (6.4-8.2) g/dl Albumin (3.4-5.0) g/dl Globulin gm/dL Albumin/Globulin Ratio (1-2) Lipase (73-393) U/L Procalcitonin ng/mL Urine Color (Yellow) Urine Appearance (Clear) Urine pH (5.0-8.0) Ur Specific [place] (1.005-1.030) Urine Protein (Negative) Urine Glucose (UA) (Negative) Urine Ketones (Negative) Urine Occult Blood (Negative) Urine Nitrite (Negative) Urine Bilirubin (Negative) Urine Urobilinogen (0.2-1.0) Ur Leukocyte Esterase (Negative) Urine RBC (0-5) /hpf Urine WBC (0-5) /hpf Ur Epithelial Cells (0-5) /hpf Urine Bacteria (FEW) /hpf Urine Mucus (FEW) /hpf Urine Yeast (Budding) (NOT SEEN) Ethyl Alcohol (0.00) gm% Ketones (0.0-0.3) mM SARS-CoV-2 RNA (KIMMY) (NEGATIVE) 08/12/21 08/12/21 08/12/21 Range/Units 01:49 02:57 03:58 WBC (3.98-10.04) K/mm3 RBC (3.98-5.22) M/mm3 Hgb (11.2-15.7) gm/dl Hct (34.1-44.9) % MCV (79.4-94.8) fl MCH (25.6-32.2) pg MCHC (32.2-35.5) g/dl RDW Std Deviation (36.4-46.3) fL Plt Count (182-369) K/mm3 MPV (9.4-12.3) fl Neut % (Auto) (34.0-71.1) % Lymph % (Auto) (19.3-51.7) % [place] % (Auto) (4.7-12.5) % Eos % (Auto) (0.7-5.8) Baso % (Auto) (0.1-1.2) % Neut # (Auto) (1.56-6.13) K/mm3 Lymph # (Auto) (1.18-3.74) K/mm3 [place] # (Auto) (0.24-0.36) K/mm3 Eos # (Auto) (0.04-0.36) K/mm3 Baso # (Auto) (0.01-0.08) K/mm3 VBG pH (7.30-7.40) Sodium (136-145) mEq/L Potassium (3.5-5.1) mEq/L Chloride (98-107) mEq/L Carbon Dioxide (21-32) mEq/L Anion Gap (5-15) BUN (7-18) mg/dL Creatinine (0.55-1.02) mg/dL Est Cr Clr Drug Dosing mL/min Estimated GFR (MDRD) (>60) mL/min BUN/Creatinine Ratio (14-18) Glucose (70-99) mg/dL POC Glucose 251 H 275 H 223 H (70-99) mg/dL Hemoglobin A1c ( - 5.6) % Lactic Acid (0.4-2.0) mmol/L Calcium (8.5-10.1) mg/dL Phosphorus (2.6-4.7) mg/dL Magnesium (1.8-2.4) mg/dL Total Bilirubin (0.2-1.0) mg/dL AST (15-37) U/L ALT (14-59) U/L Alkaline Phosphatase (46-116) U/L Total Protein (6.4-8.2) g/dl Albumin (3.4-5.0) g/dl Globulin gm/dL Albumin/Globulin Ratio (1-2) Lipase (73-393) U/L Procalcitonin ng/mL Urine Color (Yellow) Urine Appearance (Clear) Urine pH (5.0-8.0) Ur Specific [place] (1.005-1.030) Urine Protein (Negative) Urine Glucose (UA) (Negative) Urine Ketones (Negative) Urine Occult Blood (Negative) Urine Nitrite (Negative) Urine Bilirubin (Negative) Urine Urobilinogen (0.2-1.0) Ur Leukocyte Esterase (Negative) Urine RBC (0-5) /hpf Urine WBC (0-5) /hpf Ur Epithelial Cells (0-5) /hpf Urine Bacteria (FEW) /hpf Urine Mucus (FEW) /hpf Urine Yeast (Budding) (NOT SEEN) Ethyl Alcohol (0.00) gm% Ketones (0.0-0.3) mM SARS-CoV-2 RNA (KIMMY) (NEGATIVE) 08/12/21 08/12/21 08/12/21 Range/Units 04:40 04:40 04:40 WBC 14.97 H (3.98-10.04) K/mm3 RBC 3.41 L (3.98-5.22) M/mm3 Hgb 10.2 L D (11.2-15.7) gm/dl Hct 30.7 L (34.1-44.9) % MCV 90.0 (79.4-94.8) fl MCH 29.9 (25.6-32.2) pg MCHC 33.2 (32.2-35.5) g/dl RDW Std Deviation 39.4 (36.4-46.3) fL Plt Count 192 (182-369) K/mm3 MPV 8.8 L (9.4-12.3) fl Neut % (Auto) 79.9 H (34.0-71.1) % Lymph % (Auto) 11.7 L (19.3-51.7) % [place] % (Auto) 7.9 (4.7-12.5) % Eos % (Auto) 0.1 L (0.7-5.8) Baso % (Auto) 0.1 (0.1-1.2) % Neut # (Auto) 11.97 H (1.56-6.13) K/mm3 Lymph # (Auto) 1.75 (1.18-3.74) K/mm3 [place] # (Auto) 1.18 H (0.24-0.36) K/mm3 Eos # (Auto) 0.01 L (0.04-0.36) K/mm3 Baso # (Auto) 0.01 (0.01-0.08) K/mm3 VBG pH (7.30-7.40) Sodium 138 (136-145) mEq/L Potassium 4.3 (3.5-5.1) mEq/L Chloride 107 (98-107) mEq/L Carbon Dioxide 25 (21-32) mEq/L Anion Gap 10.3 (5-15) BUN 38 H (7-18) mg/dL Creatinine 1.1 H (0.55-1.02) mg/dL Est Cr Clr Drug Dosing 57.91 mL/min Estimated GFR (MDRD) 56 (>60) mL/min BUN/Creatinine Ratio 34.5 H (14-18) Glucose 238 H (70-99) mg/dL POC Glucose (70-99) mg/dL Hemoglobin A1c 9.3 H ( - 5.6) % Lactic Acid (0.4-2.0) mmol/L Calcium 8.1 L (8.5-10.1) mg/dL Phosphorus 1.6 L (2.6-4.7) mg/dL Magnesium 2.0 (1.8-2.4) mg/dL Total Bilirubin 0.3 (0.2-1.0) mg/dL AST 7 L (15-37) U/L ALT 17 (14-59) U/L Alkaline Phosphatase 58 (46-116) U/L Total Protein 5.5 L (6.4-8.2) g/dl Albumin 3.0 L (3.4-5.0) g/dl Globulin 2.5 gm/dL Albumin/Globulin Ratio 1.2 (1-2) Lipase (73-393) U/L Procalcitonin ng/mL Urine Color (Yellow) Urine Appearance (Clear) Urine pH (5.0-8.0) Ur Specific [place] (1.005-1.030) Urine Protein (Negative) Urine Glucose (UA) (Negative) Urine Ketones (Negative) Urine Occult Blood (Negative) Urine Nitrite (Negative) Urine Bilirubin (Negative) Urine Urobilinogen (0.2-1.0) Ur Leukocyte Esterase (Negative) Urine RBC (0-5) /hpf Urine WBC (0-5) /hpf Ur Epithelial Cells (0-5) /hpf Urine Bacteria (FEW) /hpf Urine Mucus (FEW) /hpf Urine Yeast (Budding) (NOT SEEN) Ethyl Alcohol (0.00) gm% Ketones (0.0-0.3) mM SARS-CoV-2 RNA (KIMMY) (NEGATIVE) 08/12/21 08/12/21 08/12/21 Range/Units 05:00 06:02 06:56 WBC (3.98-10.04) K/mm3 RBC (3.98-5.22) M/mm3 Hgb (11.2-15.7) gm/dl Hct (34.1-44.9) % MCV (79.4-94.8) fl MCH (25.6-32.2) pg MCHC (32.2-35.5) g/dl RDW Std Deviation (36.4-46.3) fL Plt Count (182-369) K/mm3 MPV (9.4-12.3) fl Neut % (Auto) (34.0-71.1) % Lymph % (Auto) (19.3-51.7) % [place] % (Auto) (4.7-12.5) % Eos % (Auto) (0.7-5.8) Baso % (Auto) (0.1-1.2) % Neut # (Auto) (1.56-6.13) K/mm3 Lymph # (Auto) (1.18-3.74) K/mm3 [place] # (Auto) (0.24-0.36) K/mm3 Eos # (Auto) (0.04-0.36) K/mm3 Baso # (Auto) (0.01-0.08) K/mm3 VBG pH (7.30-7.40) Sodium (136-145) mEq/L Potassium (3.5-5.1) mEq/L Chloride (98-107) mEq/L Carbon Dioxide (21-32) mEq/L Anion Gap (5-15) BUN (7-18) mg/dL Creatinine (0.55-1.02) mg/dL Est Cr Clr Drug Dosing mL/min Estimated GFR (MDRD) (>60) mL/min BUN/Creatinine Ratio (14-18) Glucose (70-99) mg/dL POC Glucose 183 H 184 H 145 H (70-99) mg/dL Hemoglobin A1c ( - 5.6) % Lactic Acid (0.4-2.0) mmol/L Calcium (8.5-10.1) mg/dL Phosphorus (2.6-4.7) mg/dL Magnesium (1.8-2.4) mg/dL Total Bilirubin (0.2-1.0) mg/dL AST (15-37) U/L ALT (14-59) U/L Alkaline Phosphatase (46-116) U/L Total Protein (6.4-8.2) g/dl Albumin (3.4-5.0) g/dl Globulin gm/dL Albumin/Globulin Ratio (1-2) Lipase (73-393) U/L Procalcitonin ng/mL Urine Color (Yellow) Urine Appearance (Clear) Urine pH (5.0-8.0) Ur Specific [place] (1.005-1.030) Urine Protein (Negative) Urine Glucose (UA) (Negative) Urine Ketones (Negative) Urine Occult Blood (Negative) Urine Nitrite (Negative) Urine Bilirubin (Negative) Urine Urobilinogen (0.2-1.0) Ur Leukocyte Esterase (Negative) Urine RBC (0-5) /hpf Urine WBC (0-5) /hpf Ur Epithelial Cells (0-5) /hpf Urine Bacteria (FEW) /hpf Urine Mucus (FEW) /hpf Urine Yeast (Budding) (NOT SEEN) Ethyl Alcohol (0.00) gm% Ketones (0.0-0.3) mM SARS-CoV-2 RNA (KIMMY) (NEGATIVE) 08/12/21 Range/Units 08:20 WBC (3.98-10.04) K/mm3 RBC (3.98-5.22) M/mm3 Hgb (11.2-15.7) gm/dl Hct (34.1-44.9) % MCV (79.4-94.8) fl MCH (25.6-32.2) pg MCHC (32.2-35.5) g/dl RDW Std Deviation (36.4-46.3) fL Plt Count (182-369) K/mm3 MPV (9.4-12.3) fl Neut % (Auto) (34.0-71.1) % Lymph % (Auto) (19.3-51.7) % [place] % (Auto) (4.7-12.5) % Eos % (Auto) (0.7-5.8) Baso % (Auto) (0.1-1.2) % Neut # (Auto) (1.56-6.13) K/mm3 Lymph # (Auto) (1.18-3.74) K/mm3 [place] # (Auto) (0.24-0.36) K/mm3 Eos # (Auto) (0.04-0.36) K/mm3 Baso # (Auto) (0.01-0.08) K/mm3 VBG pH (7.30-7.40) Sodium (136-145) mEq/L Potassium (3.5-5.1) mEq/L Chloride (98-107) mEq/L Carbon Dioxide (21-32) mEq/L Anion Gap (5-15) BUN (7-18) mg/dL Creatinine (0.55-1.02) mg/dL Est Cr Clr Drug Dosing mL/min Estimated GFR (MDRD) (>60) mL/min BUN/Creatinine Ratio (14-18) Glucose (70-99) mg/dL POC Glucose 107 H (70-99) mg/dL Hemoglobin A1c ( - 5.6) % Lactic Acid (0.4-2.0) mmol/L Calcium (8.5-10.1) mg/dL Phosphorus (2.6-4.7) mg/dL Magnesium (1.8-2.4) mg/dL Total Bilirubin (0.2-1.0) mg/dL AST (15-37) U/L ALT (14-59) U/L Alkaline Phosphatase (46-116) U/L Total Protein (6.4-8.2) g/dl Albumin (3.4-5.0) g/dl Globulin gm/dL Albumin/Globulin Ratio (1-2) Lipase (73-393) U/L Procalcitonin ng/mL Urine Color (Yellow) Urine Appearance (Clear) Urine pH (5.0-8.0) Ur Specific [place] (1.005-1.030) Urine Protein (Negative) Urine Glucose (UA) (Negative) Urine Ketones (Negative) Urine Occult Blood (Negative) Urine Nitrite (Negative) Urine Bilirubin (Negative) Urine Urobilinogen (0.2-1.0) Ur Leukocyte Esterase (Negative) Urine RBC (0-5) /hpf Urine WBC (0-5) /hpf Ur Epithelial Cells (0-5) /hpf Urine Bacteria (FEW) /hpf Urine Mucus (FEW) /hpf Urine Yeast (Budding) (NOT SEEN) Ethyl Alcohol (0.00) gm% Ketones (0.0-0.3) mM SARS-CoV-2 RNA (KIMMY) (NEGATIVE) Med Orders - Current: Current Medications Hydrocodone Bitart/Acetaminophen (Acetaminophen/Hydrocodone 325-5 Mg Tab) 1 tab PO Q4H PRN PRN Reason: Pain (moderate 4-6) Last Admin: 08/12/21 08:47 Dose: 1 tab Documented by: Enoxaparin Sodium (Enoxaparin 40 Mg/0.4 Ml Syringe) 40 mg SUBCUT DAILY [facility] Last Admin: 08/12/21 08:47 Dose: 40 mg Documented by: Hydromorphone HCl (Hydromorphone 1 Mg/Ml Syringe) 1 mg IVPUSH Q2H PRN PRN Reason: Pain (severe 7-10) Last Admin: 08/12/21 08:48 Dose: 1 mg Documented by: Insulin Human Lispro (Insulin Lispro 100 Unit/Ml 10 Ml Vial) 0 unit SUBCUT QIDACANDBED [facility]; Protocol Metoclopramide HCl (Metoclopramide 10 Mg/2 Ml Sdv) 5 mg IVPUSH Q6H PRN PRN Reason: Nausea Last Admin: 08/12/21 08:49 Dose: 5 mg Documented by: Ondansetron HCl (Ondansetron 4 Mg/2 Ml Sdv) 4 mg IVPUSH Q4HR PRN PRN Reason: Nausea Last Admin: 08/12/21 05:00 Dose: 4 mg Documented by: Pantoprazole Sodium (Pantoprazole 40 Mg Tab.Cr) 40 mg PO DAILY [facility] Last Admin: 08/12/21 08:47 Dose: 40 mg Documented by: Sodium Chloride (Sodium Chloride 0.9% 10 Ml Syringe) 10 ml FLUSH ASDIRECTED PRN PRN Reason: Keep Vein Open Last Admin: 08/11/21 13:40 Dose: 10 ml Documented by: Discontinued Medications Hydromorphone HCl (Hydromorphone 1 Mg/Ml Syringe) 1 mg IVPUSH ONETIME ONE Stop: 08/11/21 13:20 Last Admin: 08/11/21 13:40 Dose: 1 mg Documented by: Hydromorphone HCl (Hydromorphone 0.5 Mg/0.5 Ml Syringe) 0.5 mg IVPUSH ONETIME ONE Stop: 08/11/21 15:17 Last Admin: 08/11/21 15:44 Dose: 0.5 mg Documented by: Hydromorphone HCl (Hydromorphone 1 Mg/Ml Syringe) 1 mg IVPUSH ONETIME ONE Stop: 08/11/21 20:14 Last Admin: 08/11/21 20:23 Dose: 1 mg Documented by: Sodium Chloride (Normal Saline) 1,000 mls @ 999 mls/hr IV ASDIRECTED TONIO Last Admin: 08/11/21 17:30 Dose: 999 mls/hr Documented by: Sodium Chloride (Normal Saline) 1,000 mls @ 999 mls/hr IV ONETIME ONE Stop: 08/11/21 15:57 Last Infusion: 08/11/21 15:05 Dose: 750 mls/hr Documented by: Insulin Human Regular 100 unit (/ Sodium Chloride) 100 mls @ 4.536 mls/hr IV TITRATE TONIO; Protocol Last Titration: 08/12/21 06:57 Dose: 0.09 units/kg/hr, 4 mls/hr Documented by: Potassium Chloride/Sodium Chloride (Normal Saline With 20 Meq Kcl) 1,000 mls @ 250 mls/hr IV ASDIRECTED TONIO Last Admin: 08/11/21 19:15 Dose: 250 mls/hr Documented by: Potassium Chloride 10 meq/ (Premix) 100 mls @ 100 mls/hr IV Q1H TONIO Stop: 08/11/21 22:44 Last Admin: 08/11/21 22:16 Dose: 100 mls/hr Documented by: Potassium Chloride/Dextrose/Sod Cl (D5 1/2 Ns W/ 20 Meq/L Kcl) 1,000 mls @ 250 mls/hr IV CONTINUOUS TONIO Last Infusion: 08/12/21 03:40 Dose: 150 mls/hr Documented by: Insulin Glargine (Insulin Glarg,Human.Rec.Analog 100 Unit/Ml) 10 unit SUBCUT ONETIME ONE Stop: 08/12/21 08:28 Last Admin: 08/12/21 08:48 Dose: 10 units Documented by: Insulin Human Regular (Insulin Regular, Human 100 Units/Ml 3 Ml Vial) 5 unit SUBCUT ONETIME ONE Stop: 08/11/21 17:39 Last Admin: 08/11/21 17:40 Dose: 5 unit Documented by: Insulin Human Regular (Insulin Regular, Human 100 Units/Ml 3 Ml Vial) 5 unit IV ONETIME ONE Stop: 08/11/21 17:42 Last Admin: 08/11/21 17:56 Dose: Not Given Documented by: Ondansetron HCl (Ondansetron 4 Mg/2 Ml Sdv) 4 mg IVPUSH ONETIME ONE Stop: 08/11/21 13:11 Last Admin: 08/11/21 13:44 Dose: 4 mg Documented by: Ondansetron HCl (Ondansetron 4 Mg/2 Ml Sdv) 4 mg IV Q4H PRN PRN Reason: Nausea/Vomiting
[2021-08-12] MEDS ORDERED: Insulin Lispro 100 UNIT/ML 10 ML Vial SUBCUT SCH (11:00)
== END 2021-08-12 12:30 | disposition home or self-care (01) | DRG 639 ==
LOC: JD.ED 12:54 → JD.ICU 18:52
PROVIDERS: ADMIT Family Medicine; ATTEND Family Medicine
DX: E10.10 Type 1 diabetes mellitus with ketoacidosis without coma (principal); E87.6 Hypokalemia; G89.29 Other chronic pain; K58.0 Irritable bowel syndrome with diarrhea; K21.9 Gastro-esophageal reflux disease without esophagitis; F41.9 Anxiety disorder, unspecified; M54.9 Dorsalgia, unspecified; F32.9 Major depressive disorder, single episode, unspecified; K31.84 Gastroparesis; E10.65 Type 1 diabetes mellitus with hyperglycemia; Z86.718 Personal history of other venous thrombosis and embolism; Z79.899 Other long term (current) drug therapy; Z86.14 Personal history of Methicillin resistant Staphylococcus aureus infection; Z88.6 Allergy status to analgesic agent; Z20.822 Contact with and (suspected) exposure to COVID-19; Z91.048 Other nonmedicinal substance allergy status; Z79.4 Long term (current) use of insulin; Z91.040 Latex allergy status; I10 Essential (primary) hypertension; K52.9 Noninfective gastroenteritis and colitis, unspecified; M19.90 Unspecified osteoarthritis, unspecified site; G43.909 Migraine, unspecified, not intractable, without status migrainosus; Z86.19 Personal history of other infectious and parasitic diseases; Z86.711 Personal history of pulmonary embolism; Z79.01 Long term (current) use of anticoagulants
CPT/HCPCS: 36415; 71045; 80048; 80053; 80307; 81001; 82009; 82800 ×2; 82947 ×2; 83605; 83690; 83735 ×2; 84100 ×2; 84145; 85025; 87040 ×2; 87635; J1170 ×2; J1815 ×2; J2405; J7030 ×2; 83036; 96374; 96375; 96376; 99285; 99285-25; A9270-GY; J1650; J2765; J3480; U0002

== ENCOUNTER 2021-08-15 18:46 | Emergency (ER) | payer MEDICAID ==
[2021-08-15] MEDS ORDERED: Ondansetron 4 MG/2 ML SDV IVPUSH ONE (19:30)
[2021-08-15] MEDS ORDERED: Sodium Chloride 0.9% 1,000 ML IV ONE (19:30)
[2021-08-15] MEDS ORDERED: LORazepam 2 MG/ML SDV IVPUSH ONE (19:30)
[2021-08-15] MEDS ORDERED: Ketorolac 15 MG/ML SDV IVPUSH ONE (21:00)
--- NOTE | 2021-08-15 21:23 | EDM.PDOC ---
ED HPI GENERAL MEDICAL PROBLEM - General Chief Complaint: Diabetic Complaint Stated Complaint: VOMITTING Time Seen by Provider: 08/15/21 19:18 Source of Information: Reports: Patient History Limitations: Reports: No Limitations - History of Present Illness INITIAL COMMENTS - FREE TEXT/NARRATIVE: Patient is a 36-year-old female who was recently hospitalized for DKA and returns today after having continuous vomiting approximately 30 times. She states anytime she drinks anything she has been throwing up. Patient does have Zofran and Reglan at home but that is not currently helping her. She is complaining of abdominal pain which appears to be chronic in nature. She has a history of cyclic vomiting and does have a medical marijuana card but has not been using marijuana recently. She denies any fever chills any cough or any Covid symptoms. Patient was negative for Covid with her recent hospitalization. She denies any bloody or tarry looking stools. Onset: Unknown/Unsure Duration: Waxing/Waning Location: Reports: Abdomen Quality: Reports: Ache, Burning Severity: Moderate Improves with: Reports: None Worsens with: Reports: Eating Abdomen Pain Score (Numeric/FACES): 5 - Related Data Allergies Allergy/AdvReac Type Severity Reaction Status Date / Time latex Allergy Intermediate Hives Verified 08/11/21 13:05 tramadol Allergy Intermediate Hives Verified 08/11/21 13:05 purex laundry soap Allergy Intermediate Hives Uncoded 08/11/21 13:05 Home Meds: Home Meds Buprenorphine HCl/Naloxone HCl [Buprenorphine-Nalox 8-2Mg Film] 20 mg SL DAILY 02/29/20 [History] Insulin Degludec [Tresiba] 10 unit SQ DAILY 09/30/20 [History] Metoclopramide HCl [Reglan] 5 mg PO BID 11/23/20 [History] Omeprazole Magnesium [Prilosec Otc] 20 mg PO BEDTIME 03/29/21 [History] Pantoprazole [ProTONIX] 40 mg PO DAILY 03/29/21 [History] Insulin Aspart [NovoLOG] See Protocol SUBCUT TIDPC 08/11/21 [History] Past Medical History HEENT History: Reports: Other (See Below) Other HEENT History: dysphagia Cardiovascular History: Reports: Hypertension Respiratory History: Reports: PE Gastrointestinal History: Reports: Chronic Diarrhea, GERD, Irritable Bowel Syndrome Other Gastrointestinal History: diarrhea, nausea, LLQ pain 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 History: Reports: Acute Renal Failure 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: Endometriosis, Other TANKAGE GRINDER OPERATOR History: amenorrhea Musculoskeletal History: Reports: Arthritis, Back Pain, Chronic Other Musculoskeletal History: chronic pain Neurological History: Reports: Headaches, Chronic, Migraines, Seizure Other Neuro History: Diabetic seizure Psychiatric History: Reports: Anxiety, Depression Other Psychiatric History: drug use history Endocrine/Metabolic History: Reports: Diabetes, Type I, Hypokalemia Other Endocrine/Metabolic History: hypokalemia 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 - Past Surgical History GI Surgical History: Reports: Cholecystectomy Other GI Surgeries/Procedures: ileostomy and closure, small bowel resection Female Surgical History: Reports: D&C Endocrine Surgical History: Reports: None Neurological Surgical History: Reports: None Musculoskeletal Surgical History: Reports: None Dermatological Surgical History: Reports: None Social & Family History - Family History Family Medical History: No Pertinent Family History - Tobacco Use Tobacco Use Status *Q: Current Every Day Tobacco User Years of Tobacco use: 20 Packs/Tins Daily: 1 - Caffeine Use Caffeine Use: Reports: Coffee Other Caffeine Use: drinks mellow yellow daily about 3 cans Caffeine Use Comment: unable to assess and verify for now due to condition - Recreational Drug Use Recreational Drug Type: Reports: Marijuana/Hashish Other Recreational Drug Type: has card for marijuana - Living Situation & Occupation Living situation: Reports: Single, with Family Occupation: Unemployed ED ROS GENERAL - Review of Systems Review Of Systems: Comprehensive ROS is negative, except as noted in HPI. GI/Abdominal: Reports: Abdominal Pain, Anorexia, Nausea, Vomiting. Denies: Hematemesis, Hematochezia, Melena : Reports: No Symptoms ED EXAM GENERAL NO PERIP PULSE - Physical Exam Exam: See Below Exam Limited By: No Limitations General Appearance: Alert, No Apparent Distress Head: Normocephalic Neck: Normal Inspection, Supple Respiratory/Chest: No Respiratory Distress, Lungs Clear, Normal Breath Sounds Cardiovascular: Regular Rate, Rhythm, No JVD GI/Abdominal: Soft, No Organomegaly, No Distention, Tender. No: Guarding, Rebound Back Exam: Normal Inspection Extremities: Normal Inspection Neurological: Alert, Oriented, Normal Cognition Psychiatric: Normal Affect Skin Exam: Warm, Dry, Normal Color Lymphatic: No Adenopathy Course - Vital Signs Text/Narrative:: Patient's lab work is unremarkable. She is given a liter of fluid and IV medication. She is feeling much better at this point and can keep down some ice water. She is requesting to go home. Since she does have Zofran and Reglan at home I am comfortable discharging her at this time. She is instructed not use marijuana which is a driving force with her cyclic vomiting. Last Recorded V/S: Last Vital Signs Temp 99.4 F 08/15/21 19:14 Pulse 93 08/15/21 19:14 Resp 20 08/15/21 19:14 BP 158/103 H 08/15/21 19:14 Pulse Ox 97 08/15/21 19:14 - Orders/Labs/Meds Labs: Laboratory Tests 08/15/21 08/15/21 08/15/21 Range/Units 19:20 19:50 19:50 WBC 5.11 (3.98-10.04) K/mm3 RBC 3.53 L (3.98-5.22) M/mm3 Hgb 10.8 L (11.2-15.7) gm/dl Hct 31.3 L (34.1-44.9) % MCV 88.7 (79.4-94.8) fl MCH 30.6 (25.6-32.2) pg MCHC 34.5 (32.2-35.5) g/dl RDW Std Deviation 37.2 (36.4-46.3) fL Plt Count 211 (182-369) K/mm3 MPV 9.1 L (9.4-12.3) fl Neutrophils % (Manual) 57 (40-60) % Band Neutrophils % 0 (0-10) % Lymphocytes % (Manual) 32 (20-40) % Atypical Lymphs % 0 % Monocytes % (Manual) 9 (2-10) % Eosinophils % (Manual) 1 (0.7-5.8) % Basophils % (Manual) 1 (0.1-1.2) Platelet Estimate Adequate RBC Morph Comment Normal Sodium 139 (136-145) mEq/L Potassium 3.6 (3.5-5.1) mEq/L Chloride 101 (98-107) mEq/L Carbon Dioxide 30 (21-32) mEq/L Anion Gap 11.6 (5-15) BUN 14 (7-18) mg/dL Creatinine 0.9 (0.55-1.02) mg/dL Est Cr Clr Drug Dosing 61.28 mL/min Estimated GFR (MDRD) > 60 (>60) mL/min BUN/Creatinine Ratio 15.6 (14-18) Glucose 203 H (70-99) mg/dL Lactic Acid (0.4-2.0) mmol/L Calcium 8.3 L (8.5-10.1) mg/dL Total Bilirubin 0.5 (0.2-1.0) mg/dL AST 11 L (15-37) U/L ALT 14 (14-59) U/L Alkaline Phosphatase 53 (46-116) U/L Total Protein 5.7 L (6.4-8.2) g/dl Albumin 3.1 L (3.4-5.0) g/dl Globulin 2.6 gm/dL Albumin/Globulin Ratio 1.2 (1-2) Lipase 36 L (73-393) U/L Urine Color Yellow (Yellow) Urine Appearance Clear (Clear) Urine pH 6.0 (5.0-8.0) Ur Specific [place] 1.025 (1.005-1.030) Urine Protein 3+ H (Negative) Urine Glucose (UA) 2+ H (Negative) Urine Ketones 3+ H (Negative) Urine Occult Blood 2+ H (Negative) Urine Nitrite Negative (Negative) Urine Bilirubin 1+ H (Negative) Urine Urobilinogen 1.0 (0.2-1.0) Ur Leukocyte Esterase Negative (Negative) U Hyaline Cast (Auto) 0-5 (0-5) /lpf Urine RBC 20-30 H (0-5) /hpf Urine WBC 0-5 (0-5) /hpf Ur Squamous Epith Cells 30-40 H (0-5) /hpf Urine Bacteria Many H (FEW) /hpf Urine Mucus Rare (FEW) /hpf Ketones (0.0-0.3) mM 08/15/21 08/15/21 Range/Units 19:50 19:50 WBC (3.98-10.04) K/mm3 RBC (3.98-5.22) M/mm3 Hgb (11.2-15.7) gm/dl Hct (34.1-44.9) % MCV (79.4-94.8) fl MCH (25.6-32.2) pg MCHC (32.2-35.5) g/dl RDW Std Deviation (36.4-46.3) fL Plt Count (182-369) K/mm3 MPV (9.4-12.3) fl Neutrophils % (Manual) (40-60) % Band Neutrophils % (0-10) % Lymphocytes % (Manual) (20-40) % Atypical Lymphs % % Monocytes % (Manual) (2-10) % Eosinophils % (Manual) (0.7-5.8) % Basophils % (Manual) (0.1-1.2) Platelet Estimate RBC Morph Comment Sodium (136-145) mEq/L Potassium (3.5-5.1) mEq/L Chloride (98-107) mEq/L Carbon Dioxide (21-32) mEq/L Anion Gap (5-15) BUN (7-18) mg/dL Creatinine (0.55-1.02) mg/dL Est Cr Clr Drug Dosing mL/min Estimated GFR (MDRD) (>60) mL/min BUN/Creatinine Ratio (14-18) Glucose (70-99) mg/dL Lactic Acid 0.9 (0.4-2.0) mmol/L Calcium (8.5-10.1) mg/dL Total Bilirubin (0.2-1.0) mg/dL AST (15-37) U/L ALT (14-59) U/L Alkaline Phosphatase (46-116) U/L Total Protein (6.4-8.2) g/dl Albumin (3.4-5.0) g/dl Globulin gm/dL Albumin/Globulin Ratio (1-2) Lipase (73-393) U/L Urine Color (Yellow) Urine Appearance (Clear) Urine pH (5.0-8.0) Ur Specific [place] (1.005-1.030) Urine Protein (Negative) Urine Glucose (UA) (Negative) Urine Ketones (Negative) Urine Occult Blood (Negative) Urine Nitrite (Negative) Urine Bilirubin (Negative) Urine Urobilinogen (0.2-1.0) Ur Leukocyte Esterase (Negative) U Hyaline Cast (Auto) (0-5) /lpf Urine RBC (0-5) /hpf Urine WBC (0-5) /hpf Ur Squamous Epith Cells (0-5) /hpf Urine Bacteria (FEW) /hpf Urine Mucus (FEW) /hpf Ketones 2.66 (0.0-0.3) mM Meds: Medications Discontinued Medications Generic Name Dose Route Start Last Admin Trade Name Carlyle PRN Reason Stop Dose Admin Sodium Chloride 1,000 mls @ 1,000 mls/hr 08/15/21 19:30 08/15/21 20:03 Normal Saline IV 08/15/21 20:29 1,000 mls/hr ONETIME ONE Administration Ketorolac Tromethamine 15 mg 08/15/21 21:00 Ketorolac 15 Mg/Ml Sdv IVPUSH 08/15/21 21:01 ONETIME ONE Lorazepam 1 mg 08/15/21 19:30 08/15/21 20:02 Lorazepam 2 Mg/Ml Sdv IVPUSH 08/15/21 19:31 1 mg ONETIME ONE Administration Ondansetron HCl 4 mg 08/15/21 19:30 08/15/21 20:02 Ondansetron 4 Mg/2 Ml Sdv IVPUSH 08/15/21 19:31 4 mg ONETIME ONE Administration Departure - Departure Time of Disposition: 21:24 Disposition: Home, Self-Care 01 Condition: Good Clinical Impression: Cyclic vomiting syndrome - Discharge Information Instructions: Cyclic Vomiting Syndrome, Adult Referrals: Saud Robin MD [Primary Care Provider] - Additional Instructions: Do not ever use marijuana. Increase fluids. [id number] Pepcid and antacids as needed. Your antiemetics if symptoms continue. Sepsis Event Note (ED) - Focused Exam Vital Signs: Vital Signs Temp Pulse Resp BP Pulse Ox 08/15/21 19:14 99.4 F 93 20 158/103 H 97
== END 2021-08-15 21:32 | disposition home or self-care (01) ==
LOC: JD.ED 18:46
DX: R11.15 Cyclical vomiting syndrome unrelated to migraine (principal); I10 Essential (primary) hypertension; K21.9 Gastro-esophageal reflux disease without esophagitis; E10.10 Type 1 diabetes mellitus with ketoacidosis without coma; Z86.718 Personal history of other venous thrombosis and embolism; Z79.899 Other long term (current) drug therapy; Z91.040 Latex allergy status; Z88.5 Allergy status to narcotic agent; Z88.8 Allergy status to other drugs, medicaments and biological substances; Z72.0 Tobacco use; Z90.49 Acquired absence of other specified parts of digestive tract
CPT/HCPCS: 36415; 80053; 81001; 82009; 83605; 83690; 85007; 85027; 96374; 96375; 99283; 99284-25; J1885; J2060; J2405; J7030

== ENCOUNTER 2021-09-29 12:21 | Emergency (ER) | payer MEDICAID ==
[2021-09-29 13:13] LABS: CORONAVIRUS COVID-19 NAA NEGATIVE (NEGATIVE)
[2021-09-29] MEDS ORDERED: Sodium Chloride 0.9% 10 ML Syringe FLUSH PRN (13:14)
[2021-09-29] MEDS ORDERED: Sodium Chloride 0.9% 1,000 ML IV ONE (13:14)
[2021-09-29] MEDS ORDERED: Ondansetron 4 MG/2 ML SDV IVPUSH ONE (13:14)
[2021-09-29] MEDS ORDERED: Ketorolac 15 MG/ML SDV IVPUSH ONE (13:17)
--- NOTE | 2021-09-29 13:51 | EDM.PDOC ---
ED HPI GENERAL MEDICAL PROBLEM - General Chief Complaint: Gastrointestinal Problem Stated Complaint: VOMITING Time Seen by Provider: 09/29/21 12:51 Source of Information: Reports: Patient History Limitations: Reports: No Limitations - History of Present Illness INITIAL COMMENTS - FREE TEXT/NARRATIVE: 36-year-old female presents the emergency department today with complaints of n ausea, vomiting, shortness of breath and chills which started approximately 36 hours ago. She states she has been actively vomiting for the past 36 hours however the patient does have a history of cyclic vomiting. She states that over the past 24 hours she has noted blood in her vomit. She states she has been unable to keep any food or fluids down for the past 36 hours. Also complaining of generalized abdominal pain however she does have chronic abdominal pain. Patient also has a history of diabetes. She states her blood sugars have been "controlled" and less than 300 mg/dL. She denies alcohol use she denies any black tarry or bloody stools, she denies recent or frequent use of NSAIDs. Also has a history of hypertension and states she was able to take her lisinopril yesterday however she has not been able to take it today due to active vomiting. Generalized Pain Score (Numeric/FACES): 9 - Related Data Allergies Allergy/AdvReac Type Severity Reaction Status Date / Time latex Allergy Intermediate Hives Verified 08/11/21 13:05 tramadol Allergy Intermediate Hives Verified 08/11/21 13:05 purex laundry soap Allergy Intermediate Hives Uncoded 08/11/21 13:05 Home Meds: Home Meds Buprenorphine HCl/Naloxone HCl [Buprenorphine-Nalox 8-2Mg Film] 20 mg SL DAILY 02/29/20 [History] Insulin Degludec [Tresiba] 10 unit SQ DAILY 09/30/20 [History] Metoclopramide HCl [Reglan] 5 mg PO BID 11/23/20 [History] Omeprazole Magnesium [Prilosec Otc] 20 mg PO BEDTIME 03/29/21 [History] Pantoprazole [ProTONIX] 40 mg PO DAILY 03/29/21 [History] Insulin Aspart [NovoLOG] See Protocol SUBCUT TIDPC 08/11/21 [History] Past Medical History HEENT History: Reports: Other (See Below) Other HEENT History: dysphagia Cardiovascular History: Reports: Hypertension Respiratory History: Reports: Asthma, PE Gastrointestinal History: Reports: Chronic Diarrhea, GERD, Irritable Bowel Syndrome Other Gastrointestinal History: diarrhea, nausea, LLQ pain 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 History: Reports: Acute Renal Failure [employer] History: Reports: Endometriosis, Other [employer] History: amenorrhea Musculoskeletal History: Reports: Arthritis, Back Pain, Chronic Other Musculoskeletal History: chronic pain Neurological History: Reports: Headaches, Chronic, Migraines, Seizure Other Neuro History: Diabetic seizure Psychiatric History: Reports: Anxiety, Depression Other Psychiatric History: drug use history Endocrine/Metabolic History: Reports: Diabetes, Type I, Hypokalemia Other Endocrine/Metabolic History: hypokalemia 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 - Past Surgical History GI Surgical History: Reports: Cholecystectomy Other GI Surgeries/Procedures: ileostomy and closure, small bowel resection Female Surgical History: Reports: D&C Endocrine Surgical History: Reports: None Neurological Surgical History: Reports: None Musculoskeletal Surgical History: Reports: None Dermatological Surgical History: Reports: None Social & Family History - Family History Family Medical History: No Pertinent Family History - Tobacco Use Tobacco Use Status *Q: Current Every Day Tobacco User Years of Tobacco use: 15 Packs/Tins Daily: 1 - Caffeine Use Caffeine Use: Reports: None Other Caffeine Use: drinks mellow yellow daily about 3 cans Caffeine Use Comment: unable to assess and verify for now due to condition - Recreational Drug Use Recreational Drug Use: Yes Drug Use in Last 12 Months: Yes Recreational Drug Type: Reports: Marijuana/Hashish Recreational Drug Use Frequency: Weekly - Living Situation & Occupation Living situation: Reports: Single, with Family Occupation: Unemployed ED ROS GENERAL - Review of Systems Review Of Systems: Comprehensive ROS is negative, except as noted in HPI. ED EXAM, GI/ABD - Physical Exam Exam: See Below Exam Limited By: No Limitations General Appearance: Alert, WD/WN, Mild Distress Ears: Normal External Exam, Hearing Grossly Normal Nose: Normal Inspection Throat/Mouth: Normal Inspection, Normal Lips, Normal Voice, No Airway Compromise Head: Atraumatic Neck: Normal Inspection, Supple Respiratory/Chest: No Respiratory Distress, Lungs Clear, Normal Breath Sounds, No Accessory Muscle Use, Chest Non-Tender Cardiovascular: Normal Peripheral Pulses, Regular Rate, Rhythm, No Murmur GI/Abdominal Exam: Normal Bowel Sounds, Soft, Non-Tender, No Distention (Female) Exam: Deferred Rectal (Female) Exam: Deferred Back Exam: Normal Inspection Extremities: Normal Inspection, Normal Range of Motion, Non-Tender, No Pedal Edema, Normal Capillary Refill Neurological: Alert, Oriented, Normal Cognition Psychiatric: Normal Affect, Normal Mood Skin Exam: Warm, Dry, Intact, Normal Color, No Rash Lymphatic: No Adenopathy Course - Vital Signs Text/Narrative:: As stated above, patient presents with complaints of feeling ill for the past 36 hours. Has been unable to keep food or fluids down for the past 24 hours due to active nausea and vomiting. Also reports blood noted in her emesis. She also complains of generalized abdominal pain. Will obtain lab studies to include a CBC, CMP, magnesium, C-reactive protein, urinalysis with micro and culture if indicated and a Covid swab. Patient will be given 1 L of normal saline IV as she is likely dehydrated as well as Reglan and Toradol. Last Recorded V/S: Last Vital Signs Temp 99.3 F 09/29/21 12:31 Pulse 123 H 09/29/21 12:31 Resp 16 09/29/21 12:31 BP 175/127 H 09/29/21 12:31 Pulse Ox 99 09/29/21 12:31 - Orders/Labs/Meds Orders: Active Orders 24 hr Category Date Time Status UA RFX BEBE AND CULT IF INDIC [URIN] Stat Lab 09/29/21 14:01 Ordered Sodium Chloride 0.9% [Saline Flush] Med 09/29/21 13:14 Active 10 ml FLUSH ASDIRECTED PRN Saline Lock Insert [OM.PC] Stat Oth 09/29/21 13:14 Ordered Medication Orders Sodium Chloride (Sodium Chloride 0.9% 10 Ml Syringe) 10 ml FLUSH ASDIRECTED PRN PRN Reason: Keep Vein Open Last Admin: 09/29/21 13:47 Dose: 10 ml Documented by: MANDI Labs: Laboratory Tests 09/29/21 09/29/21 09/29/21 Range/Units 12:30 13:35 13:35 WBC 11.51 H (3.98-10.04) K/mm3 RBC 4.49 (3.98-5.22) M/mm3 Hgb 13.4 D (11.2-15.7) gm/dl Hct 41.0 (34.1-44.9) % MCV 91.3 (79.4-94.8) fl MCH 29.8 (25.6-32.2) pg MCHC 32.7 (32.2-35.5) g/dl RDW Std Deviation 41.9 (36.4-46.3) fL Plt Count 225 (182-369) K/mm3 MPV 9.5 (9.4-12.3) fl Neut % (Auto) 85.3 H (34.0-71.1) % Lymph % (Auto) 9.6 L (19.3-51.7) % [place] % (Auto) 4.9 (4.7-12.5) % Eos % (Auto) 0 L (0.7-5.8) Baso % (Auto) 0.1 (0.1-1.2) % Neut # (Auto) 9.83 H (1.56-6.13) K/mm3 Lymph # (Auto) 1.10 L (1.18-3.74) K/mm3 [place] # (Auto) 0.56 H (0.24-0.36) K/mm3 Eos # (Auto) 0.00 L (0.04-0.36) K/mm3 Baso # (Auto) 0.01 (0.01-0.08) K/mm3 Sodium 136 (136-145) mEq/L Potassium 4.5 (3.5-5.1) mEq/L Chloride 99 (98-107) mEq/L Carbon Dioxide 28 (21-32) mEq/L Anion Gap 13.5 (5-15) BUN 24 H (7-18) mg/dL Creatinine 1.3 H (0.55-1.02) mg/dL Est Cr Clr Drug Dosing 47.09 mL/min Estimated GFR (MDRD) 46 (>60) mL/min BUN/Creatinine Ratio 18.5 H (14-18) Glucose 266 H (70-99) mg/dL Calcium 8.6 (8.5-10.1) mg/dL Magnesium 1.8 (1.8-2.4) mg/dL Total Bilirubin 0.5 (0.2-1.0) mg/dL AST 15 (15-37) U/L ALT 22 (14-59) U/L Alkaline Phosphatase 79 (46-116) U/L C-Reactive Protein <0.2 (<1.0) mg/dL Total Protein 6.3 L (6.4-8.2) g/dl Albumin 3.6 (3.4-5.0) g/dl Globulin 2.7 gm/dL Albumin/Globulin Ratio 1.3 (1-2) Influenza Type A RNA Negative (NEGATIVE) Influenza Type B RNA Negative (NEGATIVE) SARS-CoV-2 RNA (KIMMY) Negative (NEGATIVE) Meds: Medications Generic Name Dose Route Start Last Admin Trade Name Freq PRN Reason Stop Dose Admin Sodium Chloride 10 ml 09/29/21 13:14 09/29/21 13:47 Sodium Chloride 0.9% 10 Ml Syringe FLUSH 10 ml ASDIRECTED PRN Administration Keep Vein Open Discontinued Medications Generic Name Dose Route Start Last Admin Trade Name Freq PRN Reason Stop Dose Admin Sodium Chloride 1,000 mls @ 999 mls/hr 09/29/21 13:14 09/29/21 13:48 Normal Saline IV 09/29/21 14:14 999 mls/hr ONETIME ONE Administration Ketorolac Tromethamine 15 mg 09/29/21 13:17 09/29/21 13:45 Ketorolac 15 Mg/Ml Sdv IVPUSH 09/29/21 13:18 15 mg ONETIME ONE Administration Ondansetron HCl 4 mg 09/29/21 13:14 09/29/21 13:42 Ondansetron 4 Mg/2 Ml Sdv IVPUSH 09/29/21 13:15 4 mg ONETIME ONE Administration - Re-Assessments/Exams Free Text/Narrative Re-Assessment/Exam: 09/29/21 16:23 Hematology reveals a WBC of 11.51, hemoglobin 13.4, hematocrit 41.0, platelet count 225 Chemistry reveals a sodium of 136, potassium 4.5, carbon dioxide 28, anion gap 13.5, BUN 24, creatinine 1.3, glucose 226 Patient is Covid negative and also tested negative for influenza a and B. White count is just slightly elevated and I suspect this is likely due to dehydration. BUN and creatinine are elevated. Patient has not had any emesis while in the emergency department and does report feeling better after receiving IV fluids Zofran and Toradol. She will be discharged home with recommendations she consume only a clear liquid diet for the next 24 hours and then advance to a bland diet after that. She will need to follow-up with her primary care provider in about a week. 09/29/21 16:29 Patient continues to complain of abdominal cramping and was requesting more IV pain medication. We will give her 1 dose of Levsin sublingual. Departure - Departure Time of Disposition: 16:26 Disposition: Home, Self-Care 01 Condition: Good Clinical Impression: Nausea and vomiting Qualifiers: Vomiting type: unspecified Vomiting Intractability: unspecified Qualified Code(s): R11.2 - Nausea with vomiting, unspecified - Discharge Information Instructions: Nausea and Vomiting, Adult, [id number] Referrals: Saud Robin MD [Primary Care Provider] - Forms: ED Department Discharge Additional Instructions: You were seen in the emergency department today with complaints of nausea and vomiting for the past 36 hours with associated abdominal pain. Also noted to have blood in your vomit. Lab studies were completed today which did show you were just mildly dehydrated. Therefore you did receive a liter of IV fluids as well as nausea medication and pain medication. No further nausea or vomiting was appreciated while in the emergency department. Likely cause of the nausea and vomiting due to a virus called gastroenteritis. Recommend clear liquid diet only for the next 24 hours and then advance to a bland diet such as oatmeal, toast, rice and applesauce. Follow-up with your primary care provider later this week for reevaluation. Sepsis Event Note (ED) - Evaluation Sepsis Screening Result: No Definite Risk - Focused Exam Vital Signs: Vital Signs Temp Pulse Resp BP Pulse Ox 09/29/21 12:31 99.3 F 123 H 16 175/127 H 99 - My Orders Last 24 Hours: My Active Orders 09/29/21 13:14 Sodium Chloride 0.9% [Saline Flush] 10 ml FLUSH ASDIRECTED PRN Saline Lock Insert [OM.PC] Stat 09/29/21 14:01 UA RFX BEBE AND CULT IF INDIC [URIN] Stat - Assessment/Plan Last 24 Hours: My Active Orders 09/29/21 13:14 Sodium Chloride 0.9% [Saline Flush] 10 ml FLUSH ASDIRECTED PRN Saline Lock Insert [OM.PC] Stat 09/29/21 14:01 UA RFX BEBE AND CULT IF INDIC [URIN] Stat
[2021-09-29] MEDS ORDERED: Hyoscyamine 0.125 MG Tab.SL SL ONE (16:28)
== END 2021-09-29 16:45 | disposition home or self-care (01) ==
LOC: JD.ED 12:21
DX: R11.2 Nausea with vomiting, unspecified (principal); K21.9 Gastro-esophageal reflux disease without esophagitis; E10.9 Type 1 diabetes mellitus without complications; Z72.0 Tobacco use; Z20.822 Contact with and (suspected) exposure to COVID-19; Z91.040 Latex allergy status; Z88.5 Allergy status to narcotic agent; Z91.048 Other nonmedicinal substance allergy status; Z79.899 Other long term (current) drug therapy
CPT/HCPCS: 0240U; 36415; 80053; 81001; 82947; 83735; 85025; 86140; 96374; 96375; 99284; A9270; J1885; J2405; J7030

== ENCOUNTER 2022-02-15 20:31 | Emergency (ER) | payer MEDICAID ==
[2022-02-15] MEDS ORDERED: Sodium Chloride 0.9% 10 ML Syringe FLUSH PRN (20:41)
[2022-02-15] MEDS ORDERED: Sodium Chloride 0.9% 1,000 ML IV STA ×2 (20:52→22:32)
[2022-02-15] MEDS ORDERED: Ondansetron 4 MG/2 ML SDV IVPUSH ONE (21:07)
[2022-02-15] MEDS ORDERED: HYDROmorphone 0.5 MG/0.5 ML Syringe IVPUSH ONE ×2 (21:07→22:51)
[2022-02-15] MEDS ORDERED: Iopamidol 612 MG/ML 100 ML Bottle IVPUSH ONE (21:43)
[2022-02-15] MEDS ORDERED: Sodium Chloride 0.9% 10 ML SDV FLUSH ONE (21:43)
[2022-02-15] MEDS ORDERED: Insulin Regular, Human 100 Units/ML 3 ML Vial SUBCUT ONE ×2 (23:13→23:14)
[2022-02-16] MEDS ORDERED: Ondansetron 4 MG/2 ML SDV IVPUSH ONE (00:27)
== END 2022-02-16 01:53 | disposition home or self-care (01) ==
LOC: JD.ED 20:31
DX: R11.2 Nausea with vomiting, unspecified (principal); R19.7 Diarrhea, unspecified; R05.9 Cough, unspecified; I10 Essential (primary) hypertension; E10.9 Type 1 diabetes mellitus without complications; K21.9 Gastro-esophageal reflux disease without esophagitis; Z79.899 Other long term (current) drug therapy; Z77.22 Contact with and (suspected) exposure to environmental tobacco smoke (acute) (chronic)
CPT/HCPCS: 36415; 36600; 71045; 74177; 80053; 81001; 82009; 82803; 82947; 83605; 85025; 86140; 96374; 96375; 96376; 99285; J1170; J1815; J2405; J7030; Q9967

== ENCOUNTER 2022-04-10 08:30 | Emergency (ER) | payer MEDICAID ==
[2022-04-10] MEDS ORDERED: Sodium Chloride 0.9% 10 ML Syringe FLUSH PRN ×2 (09:16→10:35)
[2022-04-10] MEDS ORDERED: HYDROmorphone 0.5 MG/0.5 ML Syringe IVPUSH ONE ×4 (09:22→12:08)
[2022-04-10] MEDS ORDERED: Metoclopramide 10 MG/2 ML SDV IVPUSH ONE (09:22)
[2022-04-10] MEDS ORDERED: Sodium Chloride 0.9% 1,000 ML IV STA ×2 (09:22→11:16)
[2022-04-10] MEDS ORDERED: Ondansetron 4 MG/2 ML SDV IVPUSH ONE ×2 (10:27→12:08)
[2022-04-10] MEDS ORDERED: Iopamidol 612 MG/ML 100 ML Bottle IVPUSH ONE (10:35)
[2022-04-10] MEDS ORDERED: Ketorolac 30 MG/ML SDV IVPUSH ONE (11:14)
== END 2022-04-10 13:05 | disposition home or self-care (01) ==
LOC: JD.ED 08:30
DX: R10.84 Generalized abdominal pain (principal); R11.2 Nausea with vomiting, unspecified; I10 Essential (primary) hypertension; K21.9 Gastro-esophageal reflux disease without esophagitis; E10.9 Type 1 diabetes mellitus without complications; Z91.040 Latex allergy status; Z88.5 Allergy status to narcotic agent; Z88.8 Allergy status to other drugs, medicaments and biological substances; Z79.899 Other long term (current) drug therapy; Z72.0 Tobacco use
CPT/HCPCS: 36415; 74177; 80053; 81001; 82009; 85025; 86140; 96374; 96375; 96376; 99284; J1170; J1885; J2405; J2765; J3490; J7030; Q9967

== ENCOUNTER 2022-04-15 00:50 | Emergency (ER) | payer MEDICAID ==
[2022-04-15] MEDS ORDERED: Ondansetron 4 MG/2 ML SDV IVPUSH ONE (01:14)
[2022-04-15] MEDS ORDERED: HYDROmorphone 1 MG/ML Syringe IVPUSH STA (01:14)
[2022-04-15] MEDS ORDERED: Sodium Chloride 0.9% 1,000 ML IV SCH (01:15)
[2022-04-15] MEDS ORDERED: ERYTHROMYCIN LACTOBIONATE IV STA (01:16)
[2022-04-15] MEDS ORDERED: SODIUM CHLORIDE 0.9% IV STA (01:16)
[2022-04-15] MEDS ORDERED: HYDROmorphone 1 MG/ML Syringe IVPUSH ONE (02:22)
== END 2022-04-15 03:06 | disposition home or self-care (01) ==
LOC: JD.ED 00:50
DX: R10.9 Unspecified abdominal pain (principal); R11.2 Nausea with vomiting, unspecified; K21.9 Gastro-esophageal reflux disease without esophagitis; I10 Essential (primary) hypertension; E10.65 Type 1 diabetes mellitus with hyperglycemia; Z72.0 Tobacco use; Z91.040 Latex allergy status; Z88.5 Allergy status to narcotic agent; Z88.8 Allergy status to other drugs, medicaments and biological substances; Z79.899 Other long term (current) drug therapy
CPT/HCPCS: 36415; 74177; 80053; 81001; 81025; 83690; 85025; 87086; 96365; 96375; 96376; 99284; J1170; J1364; J2405; J7030

== ENCOUNTER 2022-04-18 08:06 | Emergency (ER) | payer MEDICAID ==
[2022-04-18] MEDS ORDERED: Sodium Chloride 0.9% 1,000 ML IV STA (08:33)
[2022-04-18] MEDS ORDERED: Ondansetron 4 MG/2 ML SDV IVPUSH ONE (08:33)
[2022-04-18] MEDS ORDERED: Sodium Chloride 0.9% 10 ML Syringe FLUSH PRN (08:33)
[2022-04-18] MEDS ORDERED: HYDROmorphone 1 MG/ML Syringe IVPUSH ONE ×2 (08:38→09:58)
== END 2022-04-18 11:35 | disposition home or self-care (01) ==
LOC: JD.ED 08:06
DX: R10.84 Generalized abdominal pain (principal); R11.2 Nausea with vomiting, unspecified; E10.65 Type 1 diabetes mellitus with hyperglycemia; K21.9 Gastro-esophageal reflux disease without esophagitis; Z91.040 Latex allergy status; Z88.5 Allergy status to narcotic agent; Z88.8 Allergy status to other drugs, medicaments and biological substances; Z79.899 Other long term (current) drug therapy; Z72.0 Tobacco use
CPT/HCPCS: 36415; 74018; 80053; 81001; 82009; 82800; 82947; 83690; 83930; 84484; 84703; 85025; 93005; 96361; 96374; 96375; 96376; 99284; J1170; J2405; J3490; J7030; 93010

== ENCOUNTER 2022-06-12 08:45 | Emergency (ER) | payer MEDICAID ==
[2022-06-12] MEDS ORDERED: Sodium Chloride 0.9% 10 ML Syringe FLUSH PRN (09:18)
[2022-06-12] MEDS ORDERED: Ondansetron 4 MG/2 ML SDV IVPUSH PRN (09:18)
[2022-06-12] MEDS ORDERED: Sodium Chloride 0.9% 1,000 ML IV SCH (09:30)
[2022-06-12] MEDS ORDERED: HYDROmorphone 1 MG/ML Syringe IVPUSH ONE (09:45)
[2022-06-12] MEDS ORDERED: Metoclopramide 10 MG/2 ML SDV IVPUSH ONE (11:52)
[2022-06-12] MEDS ORDERED: HYDROmorphone 0.5 MG/0.5 ML Syringe IVPUSH ONE (11:52)
[2022-06-12] MEDS ORDERED: Lactated Ringers 1,000 ML IV ONE (12:07)
== END 2022-06-12 12:15 | disposition home or self-care (01) ==
LOC: JD.ED 08:45
DX: R10.84 Generalized abdominal pain (principal); R11.2 Nausea with vomiting, unspecified; I10 Essential (primary) hypertension; K21.9 Gastro-esophageal reflux disease without esophagitis; E10.9 Type 1 diabetes mellitus without complications; Z88.5 Allergy status to narcotic agent; Z91.048 Other nonmedicinal substance allergy status; Z79.899 Other long term (current) drug therapy
CPT/HCPCS: 36415; 80053; 85025; 96361; 96374; 96375; 96376; 99284; J1170; J2405; J2765; J3490; J7030

== ENCOUNTER 2022-06-14 20:11 | Emergency (ER) | payer MEDICAID ==
[2022-06-14] MEDS ORDERED: Sodium Chloride 0.9% 10 ML Syringe FLUSH PRN (21:30)
[2022-06-14] MEDS ORDERED: Ondansetron 4 MG/2 ML SDV IVPUSH ONE (21:30)
[2022-06-14] MEDS ORDERED: Sodium Chloride 0.9% 1,000 ML IV ONE (21:30)
[2022-06-14] MEDS ORDERED: HYDROmorphone 1 MG/ML Syringe IVPUSH ONE (21:53)
[2022-06-14] MEDS ORDERED: Ondansetron 4 MG Tab.DIS PO ONE (22:50)
[2022-06-14] MEDS ORDERED: HYDROmorphone 0.5 MG/0.5 ML Syringe IVPUSH ONE (22:50)
[2022-06-14] MEDS ORDERED: Metoclopramide 10 MG/2 ML SDV IVPUSH ONE (22:50)
== END 2022-06-15 00:38 | disposition home or self-care (01) ==
LOC: JD.ED 20:11
DX: R11.2 Nausea with vomiting, unspecified (principal); K21.9 Gastro-esophageal reflux disease without esophagitis; I10 Essential (primary) hypertension; F17.210 Nicotine dependence, cigarettes, uncomplicated; Z91.040 Latex allergy status; Z88.5 Allergy status to narcotic agent; Z91.048 Other nonmedicinal substance allergy status; Z79.899 Other long term (current) drug therapy; Z79.4 Long term (current) use of insulin; Z90.49 Acquired absence of other specified parts of digestive tract
CPT/HCPCS: 36415; 80053; 85025; 96361; 96374; 96375; 96376; 99284; A9270; J1170; J2405; J2765; J3490; J7030; 99283

== ENCOUNTER 2022-08-03 12:46 | Emergency (ER) | payer MEDICAID ==
[2022-08-03] MEDS ORDERED: Sodium Chloride 0.9% 10 ML Syringe FLUSH PRN (13:06)
[2022-08-03] MEDS ORDERED: Sodium Chloride 0.9% 1,000 ML IV STA (13:43)
[2022-08-03] MEDS ORDERED: Metoclopramide 10 MG/2 ML SDV IVPUSH ONE (13:43)
[2022-08-03] MEDS ORDERED: HYDROmorphone 1 MG/ML Syringe IVPUSH ONE (13:43)
[2022-08-03] MEDS ORDERED: HYDROmorphone 0.5 MG/0.5 ML Syringe IVPUSH ONE (15:23)
== END 2022-08-03 15:35 | disposition home or self-care (01) ==
LOC: JD.ED 12:46
DX: U07.1 COVID-19 (principal); R11.2 Nausea with vomiting, unspecified; E10.40 Type 1 diabetes mellitus with diabetic neuropathy, unspecified; K21.9 Gastro-esophageal reflux disease without esophagitis; I10 Essential (primary) hypertension; F17.210 Nicotine dependence, cigarettes, uncomplicated; Z91.040 Latex allergy status; Z88.5 Allergy status to narcotic agent; Z91.048 Other nonmedicinal substance allergy status
CPT/HCPCS: 36415; 80053; 81001; 82009; 83605; 85025; 86140; 87635; 93005; 96361; 96374; 96375; 96376; 99284; J1170; J2765; J3490; J7030; U0002

== ENCOUNTER 2022-08-14 08:03 | Emergency (ER) | payer MEDICAID ==
[2022-08-14] MEDS ORDERED: Sodium Chloride 0.9% 1,000 ML IV STA (08:38)
[2022-08-14] MEDS ORDERED: Ondansetron 4 MG/2 ML SDV IVPUSH ONE (08:38)
[2022-08-14] MEDS ORDERED: Sodium Chloride 0.9% 10 ML Syringe FLUSH PRN (08:38)
[2022-08-14] MEDS ORDERED: Pantoprazole 40 MG Vial IVPUSH ONE (08:39)
[2022-08-14] MEDS ORDERED: HYDROmorphone 1 MG/ML Syringe IVPUSH ONE (08:39)
[2022-08-14] MEDS ORDERED: HYDROmorphone 0.5 MG/0.5 ML Syringe IVPUSH ONE (10:43)
== END 2022-08-14 11:20 | disposition home or self-care (01) ==
LOC: JD.ED 08:03
DX: R10.84 Generalized abdominal pain (principal); R31.21 Asymptomatic microscopic hematuria; K21.9 Gastro-esophageal reflux disease without esophagitis; I10 Essential (primary) hypertension; E10.9 Type 1 diabetes mellitus without complications; Z91.040 Latex allergy status; Z88.5 Allergy status to narcotic agent; Z91.048 Other nonmedicinal substance allergy status; Z79.899 Other long term (current) drug therapy; Z79.4 Long term (current) use of insulin
CPT/HCPCS: 36415; 74176; 80053; 81001; 82009; 82800; 83690; 83930; 84703; 85025; 96361; 96374; 96375; 96376; 99284; C9113; J1170; J2405; J3490; J7030

== ENCOUNTER 2022-09-08 00:24 | Emergency (ER) | payer MEDICAID ==
[2022-09-08] MEDS ORDERED: Haloperidol Lactate 5 MG/ML SDV IVPUSH ONE (01:45)
[2022-09-08] MEDS ORDERED: Sodium Chloride 0.9% 1,000 ML IV ONE (01:45)
[2022-09-08 02:31] LABS: ESTIMATED GFR 59 mL/min (>60)
[2022-09-08] MEDS ORDERED: Haloperidol Lactate 5 MG/ML SDV IM ONE (02:34)
== END 2022-09-08 04:49 | disposition home or self-care (01) ==
LOC: JD.ED 00:24
DX: R10.13 Epigastric pain (principal); I10 Essential (primary) hypertension; E10.9 Type 1 diabetes mellitus without complications; K21.9 Gastro-esophageal reflux disease without esophagitis; Z91.040 Latex allergy status; Z91.048 Other nonmedicinal substance allergy status; Z88.5 Allergy status to narcotic agent; Z79.899 Other long term (current) drug therapy; Z79.4 Long term (current) use of insulin
CPT/HCPCS: 36415; 74177; 80053; 81001; 83605; 83690; 84484; 85025; 93005; 96360; 96372; 99284; J1630; J7030

== ENCOUNTER 2022-09-20 10:06 | Emergency (ER) | payer MEDICAID ==
[2022-09-20] MEDS ORDERED: Sodium Chloride 0.9% 1,000 ML IV SCH (10:30)
[2022-09-20] MEDS ORDERED: Sodium Chloride 0.9% 10 ML Syringe FLUSH PRN (10:30)
[2022-09-20] MEDS ORDERED: Ondansetron 4 MG/2 ML SDV IVPUSH ONE (10:30)
[2022-09-20] MEDS ORDERED: HYDROmorphone 0.5 MG/0.5 ML Syringe IVPUSH ONE ×2 (10:39→12:54)
[2022-09-20] MEDS ORDERED: Potassium Chloride 10 MEQ in Premix Bag 1 BAG IV ONE (12:54)
[2022-09-20] MEDS ORDERED: Potassium Chloride 20 MEQ Tab.ER PO ONE (12:54)
[2022-09-20] MEDS ORDERED: Spironolactone 25 MG Tab PO ONE (12:57)
[2022-09-20] MEDS ORDERED: Lactated Ringers 1,000 ML IV SCH (13:30)
[2022-09-20] MEDS ORDERED: Metoclopramide 10 MG/2 ML SDV IVPUSH ONE (14:44)
== END 2022-09-20 15:20 | disposition home or self-care (01) ==
LOC: JD.ED 10:06
DX: K31.84 Gastroparesis (principal); E87.6 Hypokalemia; I10 Essential (primary) hypertension; E10.9 Type 1 diabetes mellitus without complications; F17.210 Nicotine dependence, cigarettes, uncomplicated; Z91.040 Latex allergy status; Z88.5 Allergy status to narcotic agent; Z91.048 Other nonmedicinal substance allergy status; Z79.899 Other long term (current) drug therapy; Z79.4 Long term (current) use of insulin; Z90.49 Acquired absence of other specified parts of digestive tract
CPT/HCPCS: 36415; 80053; 83690; 83735; 85025; 96361; 96365; 96375; 96376; 99284; A9270; J1170; J2405; J3480; J3490; J7030; J7120

== ENCOUNTER 2023-01-03 13:30 | Emergency (ER) | payer MEDICAID ==
[2023-01-03] MEDS ORDERED: Sodium Chloride 0.9% 10 ML Syringe FLUSH PRN (14:03)
[2023-01-03] MEDS ORDERED: Sodium Chloride 0.9% 1,000 ML IV STA (14:03)
[2023-01-03] MEDS ORDERED: Ondansetron 4 MG/2 ML SDV IVPUSH ONE (14:03)
[2023-01-03] MEDS ORDERED: HYDROmorphone 0.5 MG/0.5 ML Syringe IVPUSH ONE ×2 (14:05→16:50)
[2023-01-03] MEDS ORDERED: Iopamidol 612 MG/ML 100 ML Bottle IVPUSH ONE ×2 (14:12→15:18)
[2023-01-03] MEDS: Sodium Chloride 0.9% 10 ML Syringe FLUSH ONE ×2 (14:30→15:31)
[2023-01-03] MEDS ORDERED: HYDROmorphone 1 MG/ML Syringe IVPUSH ONE (15:17)
== END 2023-01-03 17:17 | disposition home or self-care (01) ==
LOC: JD.ED 13:30
DX: K52.9 Noninfective gastroenteritis and colitis, unspecified (principal); I10 Essential (primary) hypertension; K21.9 Gastro-esophageal reflux disease without esophagitis; E10.9 Type 1 diabetes mellitus without complications; F17.210 Nicotine dependence, cigarettes, uncomplicated; Z91.040 Latex allergy status; Z88.5 Allergy status to narcotic agent; Z91.048 Other nonmedicinal substance allergy status; Z79.899 Other long term (current) drug therapy
CPT/HCPCS: 36415; 74177; 80053; 81001; 83690; 85025; 96361; 96374; 96375; 96376; 99284; J1170; J2405; J3490; J7030; Q9967

== ENCOUNTER 2023-02-27 19:19 | Emergency (ER) | payer MEDICAID ==
[2023-02-27] MEDS ORDERED: Ondansetron 4 MG Tab.DIS PO ONE (19:33)
[2023-02-27] MEDS ORDERED: Morphine 2 MG/ML SYRINGE IVPUSH ONE ×2 (20:20→22:07)
[2023-02-27] MEDS ORDERED: Sodium Chloride 0.9% 1,000 ML IV SCH (20:30)
[2023-02-27] MEDS ORDERED: Iopamidol 612 MG/ML 100 ML Bottle IVPUSH ONE (20:30)
[2023-02-27] MEDS ORDERED: Sodium Chloride 0.9% 10 ML SDV FLUSH ONE (20:30)
== END 2023-02-27 22:42 | disposition home or self-care (01) ==
LOC: JD.ED 19:19
DX: R10.84 Generalized abdominal pain (principal); R11.2 Nausea with vomiting, unspecified; K21.9 Gastro-esophageal reflux disease without esophagitis; E10.9 Type 1 diabetes mellitus without complications; Z72.0 Tobacco use; Z79.899 Other long term (current) drug therapy; Z91.040 Latex allergy status; Z88.5 Allergy status to narcotic agent; Z91.048 Other nonmedicinal substance allergy status
CPT/HCPCS: 36415; 74177; 80053; 83690; 85025; 96361; 96374; 96376; 99284; A9270; J2270; J3490; J7030; Q9967

== ENCOUNTER 2023-04-05 20:41 | Emergency (ER) | payer MEDICAID ==
[2023-04-05] MEDS ORDERED: Ondansetron 4 MG/2 ML SDV IVPUSH ONE (21:20)
[2023-04-05] MEDS ORDERED: HYDROmorphone 1 MG/ML Syringe IVPUSH STA (21:20)
[2023-04-05] MEDS ORDERED: Sodium Chloride 0.9% 1,000 ML IV ONE (21:21)
[2023-04-05 21:36] LABS: HEMATOCRIT 32.8 % (34.1-44.9); HEMOGLOBIN 10.9 gm/dl (11.2-15.7); MEAN CORPUSCULAR HEMOGLOBIN 30.9 pg (25.6-32.2); MEAN CORPUSCULAR HGB CONC 33.2 g/dl (32.2-35.5); MEAN CORPUSCULAR VOLUME 92.9 fl (79.4-94.8); PLATELET COUNT,PLT 283 K/mm3 (182-369); RED BLOOD CELL COUNT 3.53 M/mm3 (3.98-5.22); WHITE BLOOD CELL COUNT,WBC 8.45 K/mm3 (3.98-10.04)
[2023-04-05 22:03] LABS: A/G RATIO 0.7 (1-2); ANION GAP 9.2 (5-15); BILIRUBIN TOTAL 0.3 mg/dL (0.2-1.0); BUN/CREATININE RATIO 14.5 (14-18); CALCIUM 8.1 mg/dL (8.5-10.1); CREATININE 1.1 mg/dL (0.55-1.02); EST CRCL DRUG DOSING (CG) 58.1 mL/min
[2023-04-05 22:05] LABS: POTASSIUM,K 4.2 mEq/L (3.5-5.1)
[2023-04-05 22:15] LABS: BAND PERCENT MAN 0 % (0-10); BASOPHILS PERCENT MAN 1 (0.1-1.2); EOSINOPHILS PERCENT MAN 0 % (0.7-5.8); LYMPHOCYTES % ATYPICAL MANUAL 0 %; LYMPHOCYTES PERCENT MAN 25 % (20-40); MONOCYTES PERCENT MAN 2 % (2-10); PLATELET COUNT ESTIMATE ADEQUATE
[2023-04-05] MEDS ORDERED: HYDROmorphone 0.5 MG/0.5 ML Syringe IVPUSH ONE (22:24)
[2023-04-05 22:26] LABS: APPEARANCE,URINE CLEAR (Clear); BILIRUBIN,URINE NEGATIVE (Negative); COLOR,URINE YELLOW (Yellow); GLUCOSE,URINE TRACE (Negative); KETONES,URINE NEGATIVE (Negative); LEUKOCYTE ESTERASE,URINE NEGATIVE (Negative); NITRITE,URINE NEGATIVE (Negative); OCCULT BLOOD,URINE 2+ (Negative); PROTEIN,URINE 3+ (Negative); UROBILINOGEN,URINE 0.2 (0.2-1.0)
[2023-04-05 22:38] LABS: BACTERIA,URINE MODERATE /hpf (FEW); MUCUS,URINE FEW /hpf (FEW); RBC,URINE 20-30 /hpf (0-5); WBC,URINE 0-5 /hpf (0-5)
== END 2023-04-05 23:18 | disposition home or self-care (01) ==
LOC: JD.ED 20:41
DX: K52.9 Noninfective gastroenteritis and colitis, unspecified (principal); R10.12 Left upper quadrant pain; R10.31 Right lower quadrant pain; R10.84 Generalized abdominal pain; G89.29 Other chronic pain; R11.2 Nausea with vomiting, unspecified; I10 Essential (primary) hypertension; J45.909 Unspecified asthma, uncomplicated; K21.9 Gastro-esophageal reflux disease without esophagitis; F17.210 Nicotine dependence, cigarettes, uncomplicated; E10.9 Type 1 diabetes mellitus without complications; Z86.16 Personal history of COVID-19; Z91.040 Latex allergy status; Z88.5 Allergy status to narcotic agent; Z91.048 Other nonmedicinal substance allergy status; Z79.899 Other long term (current) drug therapy
CPT/HCPCS: 36415; 80053; 81001; 81025; 82009; 83690; 85007; 85027; 87086; 96361; 96374; 96375; 96376; 99284; J1170; J2405; J7030

== ENCOUNTER 2023-06-08 22:19 | Emergency (ER) | payer MEDICAID ==
[2023-06-08 22:41] LABS: HEMATOCRIT 32.9 % (34.1-44.9); HEMOGLOBIN 10.5 gm/dl (11.2-15.7); MEAN CORPUSCULAR HEMOGLOBIN 30.4 pg (25.6-32.2); MEAN CORPUSCULAR HGB CONC 31.9 g/dl (32.2-35.5); MEAN CORPUSCULAR VOLUME 95.4 fl (79.4-94.8); MEAN PLATELET VOLUME 9.2 fl (9.4-12.3); PLATELET COUNT,PLT 257 K/mm3 (182-369); RED BLOOD CELL COUNT 3.45 M/mm3 (3.98-5.22); WHITE BLOOD CELL COUNT,WBC 8.56 K/mm3 (3.98-10.04)
[2023-06-08 23:01] LABS: PROTHROMBIN TIME 9.8 SECONDS (9.7-12.0)
[2023-06-08 23:02] LABS: INR < 0.93
[2023-06-08 23:10] LABS: A/G RATIO 0.9 (1-2); ALANINE AMINOTRANSFERASE,ALT 19 U/L (14-59); ALBUMIN 2.7 g/dl (3.4-5.0); ALKALINE PHOSPHATASE 63 U/L (46-116); ANION GAP 10.9 (5-15); ASPARTATE AMNIOTRANSFERASE,AST 17 U/L (15-37); BILIRUBIN TOTAL 0.2 mg/dL (0.2-1.0); BLOOD UREA NITROGEN,BUN 21 mg/dL (7-18); CALCIUM 8.5 mg/dL (8.5-10.1); CARBON DIOXIDE,CO2 25 mEq/L (21-32); CHLORIDE,CL 112 mEq/L (98-107); CREATININE 1.5 mg/dL (0.55-1.02); ESTIMATED GFR 45 mL/min (>60); GLUCOSE RANDOM 191 mg/dL (70-99); POTASSIUM,K 3.9 mEq/L (3.5-5.1); PROTEIN TOTAL,TP 5.6 g/dl (6.4-8.2); SODIUM,NA 144 mEq/L (136-145)
[2023-06-08 23:11] LABS: BARBITURATE SCREEN,URINE NEGATIVE (CUTOFF=200); BENZODIAZEPINES SCREEN,URINE PRESUMPTIVE POSITIVE (CUTOFF=150); BUPRENORPHINE SCREEN,URINE NEGATIVE (CUTOFF=10); METHADONE SCREEN, URINE NEGATIVE (CUTOFF=200); METHAMPHETAMINES SCREEN, URINE NEGATIVE (CUTOFF=500); OXYCODONE SCREEN,URINE PRESUMPTIVE POSITIVE (CUT0FF=100); PROPOXYPHENE SCREEN,URINE NEGATIVE (CUTOFF=300); THC SCREEN,URINE 20 NG/ML PRESUMPTIVE POSITIVE (CUTOFF=50)
[2023-06-08 23:12] LABS: TROPONIN I HIGH SENSITIVITY < 4 pg/mL (<=51)
[2023-06-08 23:14] LABS: AMPHETAMINES SCREEN, URINE NEGATIVE (CUTOFF=500)
[2023-06-08] MEDS ORDERED: Ondansetron 4 MG/2 ML SDV IVPUSH ONE (23:28)
== END 2023-06-08 23:53 | disposition home or self-care (01) ==
LOC: JD.ED 22:19
DX: E10.649 Type 1 diabetes mellitus with hypoglycemia without coma (principal); F19.10 Other psychoactive substance abuse, uncomplicated; Z91.040 Latex allergy status; E10.43 Type 1 diabetes mellitus with diabetic autonomic (poly)neuropathy; I10 Essential (primary) hypertension; K21.9 Gastro-esophageal reflux disease without esophagitis; Z86.16 Personal history of COVID-19; Z88.5 Allergy status to narcotic agent; Z91.048 Other nonmedicinal substance allergy status; Z79.4 Long term (current) use of insulin; Z79.899 Other long term (current) drug therapy
CPT/HCPCS: 36415; 70450; 80053; 80306; 82947; 84484; 85027; 85610; 93005; 96374; 99285; J2405; 93010; 99284

== ENCOUNTER 2023-07-06 12:59 | Emergency (ER) | payer MEDICAID ==
[2023-07-06] MEDS ORDERED: Sodium Chloride 0.9% 10 ML Syringe FLUSH PRN (13:12)
[2023-07-06 13:40] LABS: BASOPHILS ABSOLUTE AUTO 0.05 K/mm3 (0.01-0.08); BASOPHILS PERCENT AUTO 0.6 % (0.1-1.2); EOSINOPHILS ABSOLUTE AUTO 0.55 K/mm3 (0.04-0.36); EOSINOPHILS PERCENT AUTO 6.8 (0.7-5.8); HEMATOCRIT 27.3 % (34.1-44.9); IMMATURE GRAN ABSOLUTE AUTO 0.01 K/mm3 (0.00-0.10); IMMATURE GRAN PERCENT AUTO 0.1 % (<=1.0); LYMPHOCYTES PERCENT AUTO 23.5 % (19.3-51.7); MEAN CORPUSCULAR HEMOGLOBIN 30.4 pg (25.6-32.2); MEAN CORPUSCULAR HGB CONC 32.6 g/dl (32.2-35.5); MEAN CORPUSCULAR VOLUME 93.2 fl (79.4-94.8); MEAN PLATELET VOLUME 9.2 fl (9.4-12.3); MONOCYTES ABSOLUTE AUTO 0.55 K/mm3 (0.24-0.36); MONOCYTES PERCENT AUTO 6.8 % (4.7-12.5); NEUTROPHILS ABSOLUTE AUTO 5.02 K/mm3 (1.56-6.13); NEUTROPHILS PERCENT AUTO 62.2 % (34.0-71.1); PLATELET COUNT,PLT 225 K/mm3 (182-369); RED BLOOD CELL COUNT 2.93 M/mm3 (3.98-5.22); WHITE BLOOD CELL COUNT,WBC 8.08 K/mm3 (3.98-10.04)
[2023-07-06 13:41] LABS: HEMOGLOBIN 8.9 gm/dl (11.2-15.7)
[2023-07-06] MEDS ORDERED: Ondansetron 4 MG/2 ML SDV IVPUSH ONE (13:53)
[2023-07-06] MEDS ORDERED: HYDROmorphone 0.5 MG/0.5 ML Syringe IVPUSH ONE (13:53)
[2023-07-06] MEDS ORDERED: Sodium Chloride 0.9% 1,000 ML IV STA (13:53)
[2023-07-06 13:58] LABS: A/G RATIO 0.9 (1-2); ALANINE AMINOTRANSFERASE,ALT 17 U/L (14-59); ALBUMIN 2.4 g/dl (3.4-5.0); ALKALINE PHOSPHATASE 58 U/L (46-116); ANION GAP 10.8 (5-15); ASPARTATE AMNIOTRANSFERASE,AST 17 U/L (15-37); BILIRUBIN TOTAL 0.2 mg/dL (0.2-1.0); BLOOD UREA NITROGEN,BUN 17 mg/dL (7-18); BUN/CREATININE RATIO 12.1 (14-18); C-REACTIVE PROTEIN <0.2 mg/dL (<1.0); CALCIUM 8.2 mg/dL (8.5-10.1); CARBON DIOXIDE,CO2 24 mEq/L (21-32); CHLORIDE,CL 110 mEq/L (98-107); CREATININE 1.4 mg/dL (0.55-1.02); EST CRCL DRUG DOSING (CG) 46.51 mL/min; ESTIMATED GFR 49 mL/min (>60); GLUCOSE RANDOM 192 mg/dL (70-99); MAGNESIUM 1.7 mg/dL (1.8-2.4); POTASSIUM,K 3.8 mEq/L (3.5-5.1); SODIUM,NA 141 mEq/L (136-145)
== END 2023-07-06 16:20 | disposition home or self-care (01) ==
LOC: JD.ED 12:59
DX: R55 Syncope and collapse (principal); R19.7 Diarrhea, unspecified; K21.9 Gastro-esophageal reflux disease without esophagitis; I10 Essential (primary) hypertension; F17.210 Nicotine dependence, cigarettes, uncomplicated; J45.909 Unspecified asthma, uncomplicated; E10.9 Type 1 diabetes mellitus without complications; Z91.040 Latex allergy status; Z88.5 Allergy status to narcotic agent; Z91.048 Other nonmedicinal substance allergy status; Z79.82 Long term (current) use of aspirin; Z79.899 Other long term (current) drug therapy
CPT/HCPCS: 36415; 70450; 80053; 83690; 83735; 85025; 86140; 93005; 96361; 96374; 96375; 99284; J1170; J2405; J7030; 93010

== ENCOUNTER 2023-09-01 08:25 | Emergency (ER) | payer MEDICAID ==
[2023-09-01] MEDS ORDERED: Lactated Ringers 1,000 ML IV ONE ×2 (08:51→10:13)
[2023-09-01 09:21] LABS: BASE EXCESS VENOUS -5.3 (-4.0-2.0); O2 SATURATION VENOUS 62.9; PCO2 VENOUS 48.7 mmHg (41-51); PH,VENOUS 7.26 (7.30-7.40)
[2023-09-01] MEDS ORDERED: Haloperidol Lactate 5 MG/ML SDV IVPUSH ONE (09:33)
[2023-09-01 09:45] LABS: BASOPHILS PERCENT AUTO 0.4 % (0.0-1.0); EOSINOPHILS ABSOLUTE AUTO 0.3 K/mm3 (0.0-0.4); EOSINOPHILS PERCENT AUTO 5.8 % (0.0-6.0); HEMATOCRIT 24.7 % (37.0-47.0); HEMOGLOBIN 7.8 gm/dl (12.0-16.0); IMMATURE GRAN ABSOLUTE AUTO 0.01 K/mm3 (0.00-0.05); IMMATURE GRAN PERCENT AUTO 0.2 % (0.0-0.4); LYMPHOCYTES ABSOLUTE AUTO 1.2 K/mm3 (1.0-4.8); LYMPHOCYTES PERCENT AUTO 25.7 % (24.0-44.0); MEAN CORPUSCULAR HEMOGLOBIN 30.7 pg (28.0-32.0); MEAN CORPUSCULAR HGB CONC 31.6 g/dl (32.0-36.0); MEAN CORPUSCULAR VOLUME 97.2 fl (83.0-99.0); MONOCYTES ABSOLUTE AUTO 0.2 K/mm3 (0.0-0.8); NEUTROPHILS PERCENT AUTO 62.9 % (41.0-71.0); PLATELET COUNT,PLT 133 K/mm3 (150-400); RED BLOOD CELL COUNT 2.54 M/mm3 (4.10-5.30); WHITE BLOOD CELL COUNT,WBC 4.83 K/mm3 (3.9-11.3)
[2023-09-01 09:54] LABS: A/G RATIO 0.6 (1-2); ALBUMIN 1.9 g/dl (3.4-5.0); ANION GAP 9.8 (5-15); BILIRUBIN TOTAL 0.1 mg/dL (0.2-1.0); BUN/CREATININE RATIO 13.1 (14-18); CALCIUM 7.9 mg/dL (8.5-10.1); CREATININE 1.6 mg/dL (0.55-1.02); EST CRCL DRUG DOSING (CG) 45.91 mL/min; MAGNESIUM 2.1 mg/dL (1.8-2.4); PHOSPHORUS 3.8 mg/dL (2.6-4.7); POTASSIUM,K 4.8 mEq/L (3.5-5.1); PROTEIN TOTAL,TP 4.9 g/dl (6.4-8.2)
[2023-09-01 10:05] LABS: LACTIC ACID 0.9 mmol/L (0.4-2.0)
[2023-09-01] MEDS ORDERED: Ondansetron 4 MG/2 ML SDV IVPUSH ONE (10:31)
[2023-09-01] MEDS ORDERED: Ketorolac 30 MG/ML SDV IVPUSH ONE (10:31)
[2023-09-01 10:34] LABS: APPEARANCE,URINE CLEAR (Clear); BILIRUBIN,URINE NEGATIVE (Negative); COLOR,URINE LIGHT YELLOW (Yellow); GLUCOSE,URINE 3+ (Negative); KETONES,URINE NEGATIVE (Negative); LEUKOCYTE ESTERASE,URINE NEGATIVE (Negative); NITRITE,URINE NEGATIVE (Negative); OCCULT BLOOD,URINE 2+ (Negative); PH,URINE 6.5 (5.0-8.0); PROTEIN,URINE 3+ (Negative); UROBILINOGEN,URINE 0.2 (0.2-1.0)
[2023-09-01] MEDS ORDERED: Sodium Chloride 0.9% 10 ML Syringe FLUSH PRN (10:36)
[2023-09-01] MEDS ORDERED: Iopamidol 612 MG/ML 100 ML Bottle IVPUSH ONE (10:36)
[2023-09-01 10:41] LABS: BACTERIA,URINE FEW /hpf (FEW); EPITHELIAL CELLS,URINE 0-5 /hpf (0-5); MUCUS,URINE FEW /hpf (FEW); WBC,URINE 0-5 /hpf (0-5)
== END 2023-09-01 13:15 | disposition home or self-care (01) ==
LOC: JD.ED 08:25
DX: E10.65 Type 1 diabetes mellitus with hyperglycemia (principal); J45.909 Unspecified asthma, uncomplicated; Z86.16 Personal history of COVID-19; Z79.4 Long term (current) use of insulin; Z79.899 Other long term (current) drug therapy; Z88.5 Allergy status to narcotic agent; Z91.040 Latex allergy status; Z91.09 Other allergy status, other than to drugs and biological substances
CPT/HCPCS: 36415; 80053; 81001; 81025; 82009; 82803; 82947; 83605; 83690; 83735; 84100; 85025; 96361; 96374; 96375; 99283; 99284-25; J1630; J2405; J7120

== ENCOUNTER 2023-09-23 14:21 | Emergency (ER) | payer MEDICAID ==
[2023-09-23] MEDS ORDERED: Sodium Chloride 0.9% 10 ML Syringe FLUSH PRN (16:05)
[2023-09-23] MEDS ORDERED: Metoclopramide 10 MG/2 ML SDV IVPUSH ONE (16:06)
[2023-09-23] MEDS ORDERED: HYDROmorphone 0.5 MG/0.5 ML Syringe IVPUSH ONE (16:06)
[2023-09-23] MEDS ORDERED: Sodium Chloride 0.9% 1,000 ML IV SCH (16:15)
[2023-09-23 16:22] LABS: BASOPHILS ABSOLUTE AUTO 0.1 K/mm3 (0.0-0.2); BASOPHILS PERCENT AUTO 0.3 % (0.0-1.0); HEMATOCRIT 33.4 % (37.0-47.0); HEMOGLOBIN 10.9 gm/dl (12.0-16.0); IMMATURE GRAN ABSOLUTE AUTO 0.11 K/mm3 (0.00-0.05); IMMATURE GRAN PERCENT AUTO 0.7 % (0.0-0.4); LYMPHOCYTES ABSOLUTE AUTO 1.5 K/mm3 (1.0-4.8); LYMPHOCYTES PERCENT AUTO 9.9 % (24.0-44.0); MEAN CORPUSCULAR HEMOGLOBIN 30.3 pg (28.0-32.0); MEAN CORPUSCULAR HGB CONC 32.6 g/dl (32.0-36.0); MEAN CORPUSCULAR VOLUME 92.8 fl (83.0-99.0); MEAN PLATELET VOLUME 9.5 fl (9.4-12.3); MONOCYTES ABSOLUTE AUTO 0.4 K/mm3 (0.0-0.8); MONOCYTES PERCENT AUTO 2.6 % (0.0-8.0); NEUTROPHILS ABSOLUTE AUTO 13.4 K/mm3 (1.8-7.7); NEUTROPHILS PERCENT AUTO 86.5 % (41.0-71.0); PLATELET COUNT,PLT 264 K/mm3 (150-400)
[2023-09-23 16:43] LABS: A/G RATIO 0.6 (1-2); ALANINE AMINOTRANSFERASE,ALT 25 U/L (14-59); ALBUMIN 2.3 g/dl (3.4-5.0); ALKALINE PHOSPHATASE 116 U/L (46-116); ASPARTATE AMNIOTRANSFERASE,AST 35 U/L (15-37); BILIRUBIN TOTAL 0.3 mg/dL (0.2-1.0); BLOOD UREA NITROGEN,BUN 21 mg/dL (7-18); BUN/CREATININE RATIO 10.5 (14-18); CALCIUM 8.9 mg/dL (8.5-10.1); CARBON DIOXIDE,CO2 27 mEq/L (21-32); CHLORIDE,CL 104 mEq/L (98-107); EST CRCL DRUG DOSING (CG) 35.35 mL/min; ESTIMATED GFR 32 mL/min (>60); GLUCOSE RANDOM 244 mg/dL (70-99); SODIUM,NA 139 mEq/L (136-145)
[2023-09-23 16:46] LABS: C-REACTIVE PROTEIN < 0.2 mg/dL (<1.0)
[2023-09-23 18:42] LABS: APPEARANCE,URINE CLEAR (Clear); BILIRUBIN,URINE NEGATIVE (Negative); COLOR,URINE YELLOW (Yellow); GLUCOSE,URINE 1+ (Negative); KETONES,URINE TRACE (Negative); LEUKOCYTE ESTERASE,URINE NEGATIVE (Negative); NITRITE,URINE NEGATIVE (Negative); OCCULT BLOOD,URINE 3+ (Negative); PROTEIN,URINE 3+ (Negative); UROBILINOGEN,URINE 0.2 (0.2-1.0)
[2023-09-23 18:48] LABS: BACTERIA,URINE MODERATE /hpf (FEW); MUCUS,URINE FEW /hpf (FEW); RBC,URINE 30-40 /hpf (0-5); WBC,URINE 0-5 /hpf (0-5)
== END 2023-09-23 18:55 | disposition home or self-care (01) ==
LOC: JD.ED 14:21
DX: K92.0 Hematemesis (principal); R10.84 Generalized abdominal pain; I10 Essential (primary) hypertension; K21.9 Gastro-esophageal reflux disease without esophagitis; E10.9 Type 1 diabetes mellitus without complications; F17.210 Nicotine dependence, cigarettes, uncomplicated; Z86.16 Personal history of COVID-19; Z91.040 Latex allergy status; Z88.5 Allergy status to narcotic agent; Z91.048 Other nonmedicinal substance allergy status; Z79.4 Long term (current) use of insulin; Z79.899 Other long term (current) drug therapy
CPT/HCPCS: 36415; 80053; 81001; 83690; 85025; 86140; 96361; 96374; 96375; 99284; J1170; J2765; J3490; J7030

== ENCOUNTER 2023-11-13 17:58 | Emergency (ER) | payer MEDICAID ==
[2023-11-13] MEDS ORDERED: Sodium Chloride 0.9% 10 ML Syringe FLUSH PRN (18:59)
[2023-11-13] MEDS ORDERED: Sodium Chloride 0.9% 1,000 ML IV ONE ×2 (19:09→21:07)
[2023-11-13] MEDS ORDERED: Ketorolac 30 MG/ML SDV IVPUSH ONE (19:10)
[2023-11-13 19:16] LABS: CORONAVIRUS COVID-19 NAA NEGATIVE (NEGATIVE); INFLUENZA A NAA NEGATIVE (NEGATIVE); RESPIRATORY SYNCYTIAL VIR NAA NEGATIVE (NEGATIVE)
[2023-11-13 19:22] LABS: BASOPHILS PERCENT AUTO 0.6 % (0.0-1.0); EOSINOPHILS ABSOLUTE AUTO 0.4 K/mm3 (0.0-0.4); EOSINOPHILS PERCENT AUTO 8.6 % (0.0-6.0); HEMATOCRIT 32.1 % (37.0-47.0); HEMOGLOBIN 10.4 gm/dl (12.0-16.0); IMMATURE GRAN ABSOLUTE AUTO 0.03 K/mm3 (0.00-0.05); IMMATURE GRAN PERCENT AUTO 0.6 % (0.0-0.4); LYMPHOCYTES ABSOLUTE AUTO 1.1 K/mm3 (1.0-4.8); LYMPHOCYTES PERCENT AUTO 23.5 % (24.0-44.0); MEAN CORPUSCULAR HEMOGLOBIN 31.2 pg (28.0-32.0); MEAN CORPUSCULAR HGB CONC 32.4 g/dl (32.0-36.0); MEAN CORPUSCULAR VOLUME 96.4 fl (83.0-99.0); MEAN PLATELET VOLUME 9.1 fl (9.4-12.3); MONOCYTES ABSOLUTE AUTO 0.3 K/mm3 (0.0-0.8); MONOCYTES PERCENT AUTO 5.8 % (0.0-8.0); NEUTROPHILS ABSOLUTE AUTO 2.8 K/mm3 (1.8-7.7); NEUTROPHILS PERCENT AUTO 60.9 % (41.0-71.0); PLATELET COUNT,PLT 121 K/mm3 (150-400); RED BLOOD CELL COUNT 3.33 M/mm3 (4.10-5.30); WHITE BLOOD CELL COUNT,WBC 4.63 K/mm3 (3.9-11.3)
[2023-11-13 19:45] LABS: A/G RATIO 0.4 (1-2); ALBUMIN 1.1 g/dl (3.4-5.0); BILIRUBIN TOTAL 0.2 mg/dL (0.2-1.0); BUN/CREATININE RATIO 8.8 (14-18); C-REACTIVE PROTEIN 1.4 mg/dL (<1.0); CALCIUM 7.3 mg/dL (8.5-10.1); CREATININE 1.7 mg/dL (0.55-1.02); EST CRCL DRUG DOSING (CG) 41.59 mL/min; MAGNESIUM 1.6 mg/dL (1.8-2.4); PROTEIN TOTAL,TP 4.2 g/dl (6.4-8.2)
[2023-11-13 20:50] LABS: APPEARANCE,URINE CLEAR (Clear); BILIRUBIN,URINE NEGATIVE (Negative); COLOR,URINE YELLOW (Yellow); GLUCOSE,URINE TRACE (Negative); KETONES,URINE NEGATIVE (Negative); LEUKOCYTE ESTERASE,URINE NEGATIVE (Negative); NITRITE,URINE NEGATIVE (Negative); OCCULT BLOOD,URINE 2+ (Negative); PROTEIN,URINE 3+ (Negative); UROBILINOGEN,URINE 0.2 (0.2-1.0)
[2023-11-13 21:02] LABS: RBC,URINE 30-40 /hpf (0-5); WBC,URINE 0-5 /hpf (0-5)
[2023-11-13 21:03] LABS: BACTERIA,URINE MANY /hpf (FEW); FINE GRANULAR CASTS,URINE 0-5 /lpf (0-5); MUCUS,URINE FEW /hpf (FEW); YEAST BUDDING,URINE MODERATE (NOT SEEN)
[2023-11-13] MEDS ORDERED: Iopamidol 755 Mg/ML 100 ML Bottle IVPUSH ONE (21:37)
[2023-11-13] MEDS ORDERED: Sodium Chloride 0.9% 100 ML IV SCH (21:45)
== END 2023-11-13 22:49 | disposition home or self-care (01) ==
LOC: JD.ED 17:58
DX: B34.9 Viral infection, unspecified (principal); I10 Essential (primary) hypertension; J45.909 Unspecified asthma, uncomplicated; K21.9 Gastro-esophageal reflux disease without esophagitis; E10.9 Type 1 diabetes mellitus without complications; Z86.16 Personal history of COVID-19; Z91.040 Latex allergy status; Z88.5 Allergy status to narcotic agent; Z91.048 Other nonmedicinal substance allergy status; Z79.899 Other long term (current) drug therapy; Z20.822 Contact with and (suspected) exposure to COVID-19
CPT/HCPCS: 0241U; 36415; 71046; 71275; 80053; 81001; 83605; 83735; 85025; 85379; 86140; 96361; 96374; 99285; J1885; J3490; J7030; Q9967; 99284

== ENCOUNTER 2023-12-13 19:29 | Emergency (ER) | payer MEDICAID ==
[2023-12-13] MEDS ORDERED: Haloperidol Lactate 5 MG/ML SDV IV ONE (19:58)
[2023-12-13] MEDS ORDERED: Sodium Chloride 0.9% 1,000 ML IV ONE (20:00)
[2023-12-13] MEDS ORDERED: Sodium Chloride 0.9% 10 ML Syringe FLUSH PRN (20:00)
[2023-12-13] MEDS ORDERED: Metoclopramide 10 MG/2 ML SDV IVPUSH ONE (20:35)
[2023-12-13] MEDS ORDERED: diphenhydrAMINE 50 MG/ML SDV IVPUSH ONE (20:36)
[2023-12-13 20:53] LABS: A/G RATIO 0.4 (1-2); ALBUMIN 1.4 g/dl (3.4-5.0); ANION GAP 12.6 (5-15); BILIRUBIN TOTAL 0.2 mg/dL (0.2-1.0); BUN/CREATININE RATIO 13.2 (14-18); CALCIUM 8.3 mg/dL (8.5-10.1); CREATININE 2.2 mg/dL (0.55-1.02); EST CRCL DRUG DOSING (CG) 29.65 mL/min; POTASSIUM,K 3.6 mEq/L (3.5-5.1); PROTEIN TOTAL,TP 4.8 g/dl (6.4-8.2)
== END 2023-12-13 23:00 | disposition home or self-care (01) ==
LOC: JD.ED 19:29
DX: K31.84 Gastroparesis (principal); K92.0 Hematemesis; I10 Essential (primary) hypertension; J44.9 Chronic obstructive pulmonary disease, unspecified; K21.9 Gastro-esophageal reflux disease without esophagitis; E10.9 Type 1 diabetes mellitus without complications; Z86.16 Personal history of COVID-19; Z90.49 Acquired absence of other specified parts of digestive tract; Z79.899 Other long term (current) drug therapy; Z79.4 Long term (current) use of insulin; Z91.040 Latex allergy status; Z91.048 Other nonmedicinal substance allergy status; Z88.5 Allergy status to narcotic agent
CPT/HCPCS: 36415; 80053; 82800; 82947; 93005; 96361; 96374; 96375; 99284; J1200; J1630; J3490; J7030; 93010

== ENCOUNTER 2023-12-23 14:47 | Inpatient (IN) | payer MEDICAID ==
[2023-12-23] MEDS ORDERED: Morphine 4 MG/ML Syringe IVPUSH ONE (15:06)
[2023-12-23] MEDS ORDERED: Ondansetron 8 MG in Sodium Chloride 0.9% 50 ML IV ONE (15:06)
[2023-12-23] MEDS ORDERED: Ondansetron 4 MG/2 ML SDV ONE (15:36)
[2023-12-23] MEDS ORDERED: Ondansetron 4 MG/2 ML SDV IVPUSH ONE (15:38)
[2023-12-23 15:42] LABS: BASOPHILS PERCENT AUTO 0.3 % (0.0-1.0); EOSINOPHILS ABSOLUTE AUTO 0.6 K/mm3 (0.0-0.4); EOSINOPHILS PERCENT AUTO 6.3 % (0.0-6.0); HEMATOCRIT 31.9 % (37.0-47.0); HEMOGLOBIN 10.7 gm/dl (12.0-16.0); IMMATURE GRAN ABSOLUTE AUTO 0.03 K/mm3 (0.00-0.05); IMMATURE GRAN PERCENT AUTO 0.3 % (0.0-0.4); LYMPHOCYTES ABSOLUTE AUTO 1.9 K/mm3 (1.0-4.8); LYMPHOCYTES PERCENT AUTO 21.8 % (24.0-44.0); MEAN CORPUSCULAR HEMOGLOBIN 31.3 pg (28.0-32.0); MEAN CORPUSCULAR HGB CONC 33.5 g/dl (32.0-36.0); MEAN CORPUSCULAR VOLUME 93.3 fl (83.0-99.0); MEAN PLATELET VOLUME 9.6 fl (9.4-12.3); MONOCYTES ABSOLUTE AUTO 0.3 K/mm3 (0.0-0.8); MONOCYTES PERCENT AUTO 3.5 % (0.0-8.0); NEUTROPHILS PERCENT AUTO 67.8 % (41.0-71.0); PLATELET COUNT,PLT 216 K/mm3 (150-400); RED BLOOD CELL COUNT 3.42 M/mm3 (4.10-5.30); WHITE BLOOD CELL COUNT,WBC 8.82 K/mm3 (3.9-11.3)
[2023-12-23] MEDS ORDERED: Sodium Chloride 0.9% 1,000 ML IV ONE (16:16)
[2023-12-23 16:25] LABS: A/G RATIO 0.4 (1-2); ALBUMIN 1.1 g/dl (3.4-5.0); ANION GAP 10.7 (5-15); BILIRUBIN TOTAL 0.1 mg/dL (0.2-1.0); BUN/CREATININE RATIO 12.8 (14-18); CALCIUM 7.3 mg/dL (8.5-10.1); CREATININE 1.8 mg/dL (0.55-1.02); EST CRCL DRUG DOSING (CG) 39.28 mL/min; POTASSIUM,K 3.7 mEq/L (3.5-5.1); PROTEIN TOTAL,TP 4.1 g/dl (6.4-8.2)
[2023-12-23] MEDS ORDERED: Iopamidol 755 Mg/ML 100 ML Bottle IVPUSH ONE (16:36)
[2023-12-23] MEDS: Morphine 4 MG/ML Syringe IVPUSH PRN ×2 (16:59→20:51)
[2023-12-23] MEDS ORDERED: Furosemide 40 MG/4 ML VIAL IVPUSH ONE (18:45)
[2023-12-23 20:22] LABS: HEMATOCRIT 34.6 % (37.0-47.0); MEAN CORPUSCULAR HEMOGLOBIN 30.6 pg (28.0-32.0); MEAN CORPUSCULAR HGB CONC 31.8 g/dl (32.0-36.0); MEAN CORPUSCULAR VOLUME 96.1 fl (83.0-99.0); MEAN PLATELET VOLUME 9.6 fl (9.4-12.3); PLATELET COUNT,PLT 208 K/mm3 (150-400); WHITE BLOOD CELL COUNT,WBC 9.01 K/mm3 (3.9-11.3)
[2023-12-23 20:39] LABS: HEMOGLOBIN A1C 6.8 %
[2023-12-23 20:39] LABS: APPEARANCE,URINE CLEAR (Clear); BILIRUBIN,URINE NEGATIVE (Negative); COLOR,URINE YELLOW (Yellow); GLUCOSE,URINE 1+ (Negative); KETONES,URINE NEGATIVE (Negative); LEUKOCYTE ESTERASE,URINE NEGATIVE (Negative); NITRITE,URINE NEGATIVE (Negative); OCCULT BLOOD,URINE TRACE-LYSED (Negative); PH,URINE 6.5 (5.0-8.0); PROTEIN,URINE 3+ (Negative); UROBILINOGEN,URINE 0.2 (0.2-1.0)
[2023-12-23] MEDS ORDERED: hydrALAZINE 20 MG/ML SDV IVPUSH PRN (20:39)
[2023-12-23] MEDS ORDERED: Non-Formulary Medication 1 Each (Amylase/Lipase/Protease 1 CAP Cap.Cr) PO SCH (21:00)
[2023-12-23 21:02] LABS: BACTERIA,URINE FEW /hpf (FEW); EPITHELIAL CELLS,URINE 0-5 /hpf (0-5); MUCUS,URINE NOT SEEN /hpf (FEW); WBC,URINE 0-5 /hpf (0-5)
[2023-12-23 21:07] LABS: IRON,FE 61 ug/dL (50-170); PERCENT FE SATURATION 54 % (20-55); TRANSFERRIN 91 mg/dL (202-364)
[2023-12-23 21:13] LABS: TOTAL IRON BINDING CAPACITY 114 ug/dL (100-400)
[2023-12-23] MEDS: fentaNYL 25 MCG/HR Transdermal Patch TOP SCH ×2 (22:40→22:42)
[2023-12-23] MEDS: ALPRAZolam 1 MG Tab PO SCH (22:40)
[2023-12-23] MEDS: oxyCODONE 5 MG Tab PO PRN (22:42)
[2023-12-23] MEDS: Sodium Bicarbonate 650 MG Tab PO SCH (22:42)
[2023-12-24] MEDS ORDERED: Naloxone 0.4 MG/ML SDV IVPUSH PRN (00:27)
[2023-12-24] MEDS: HYDROmorphone 0.5 MG/0.5 ML Syringe IVPUSH PRN ×8 (00:36→22:36)
[2023-12-24 00:55] LABS: HYALINE CASTS,URINE 0-5 /lpf (0-5)
[2023-12-24] MEDS: oxyCODONE 5 MG Tab PO PRN ×2 (02:44→06:52)
[2023-12-24] MEDS: Labetalol 100 MG Tab PO SCH ×3 (02:58→21:09)
[2023-12-24] MEDS ORDERED: Ondansetron 4 MG Tab.DIS PO ONE (02:59)
[2023-12-24] MEDS ORDERED: Ondansetron 4 MG Tab.DIS ONE (03:02)
[2023-12-24] MEDS: Pantoprazole 40 MG Tab.CR PO SCH (05:38)
[2023-12-24 05:42] LABS: ANION GAP 9.9 (5-15); BUN/CREATININE RATIO 13.3 (14-18); CALCIUM 7.1 mg/dL (8.5-10.1); CREATININE 1.8 mg/dL (0.55-1.02); EST CRCL DRUG DOSING (CG) 39.28 mL/min; POTASSIUM,K 3.9 mEq/L (3.5-5.1)
[2023-12-24] MEDS ORDERED: Amylase/Lipase/Protease 6,000 Unit Cap.CR PO SCH (07:00)
[2023-12-24] MEDS ORDERED: FLUVASTATIN SODIUM 20 MG PO SCH (09:00)
[2023-12-24] MEDS: ALPRAZolam 1 MG Tab PO SCH ×3 (09:03→21:24)
[2023-12-24] MEDS: Sodium Bicarbonate 650 MG Tab PO SCH ×2 (09:03→21:24)
[2023-12-24] MEDS: Losartan 25 MG Tab PO SCH (09:04)
[2023-12-24] MEDS: Spironolactone 25 MG Tab PO SCH ×2 (09:04→16:57)
[2023-12-24] MEDS: Furosemide 40 MG/4 ML VIAL IVPUSH SCH (09:50)
[2023-12-24] MEDS ORDERED: Ondansetron 4 MG/2 ML SDV IVPUSH PRN (16:14)
[2023-12-24] MEDS: Torsemide 20 MG Tab PO SCH (16:55)
[2023-12-24] MEDS: Nicotine 21 MG/24 Hr Patch TRDERM SCH (16:56)
[2023-12-24] MEDS: LIPASE PO SCH (16:58)
[2023-12-24] MEDS: PROTEASE PO SCH (16:58)
[2023-12-24] MEDS: AMYLASE PO SCH (16:58)
[2023-12-24] MEDS ORDERED: PROTEASE PO SCH (17:00)
[2023-12-24] MEDS ORDERED: LIPASE PO SCH (17:00)
[2023-12-24] MEDS ORDERED: AMYLASE PO SCH (17:00)
[2023-12-24] MEDS: Ondansetron 4 MG Tab.DIS PO PRN (21:24)
[2023-12-24] MEDS: atorvaSTATin 20 MG Tab PO SCH (21:24)
[2023-12-25] MEDS: HYDROmorphone 0.5 MG/0.5 ML Syringe IVPUSH PRN ×7 (04:33→22:28)
[2023-12-25] MEDS: Pantoprazole 40 MG Tab.CR PO SCH (05:42)
[2023-12-25 07:13] LABS: ANION GAP 12.7 (5-15); BUN/CREATININE RATIO 16.5 (14-18); CALCIUM 7.4 mg/dL (8.5-10.1); CREATININE 2.3 mg/dL (0.55-1.02); EST CRCL DRUG DOSING (CG) 30.74 mL/min; POTASSIUM,K 4.7 mEq/L (3.5-5.1)
[2023-12-25] MEDS: LIPASE PO SCH ×3 (07:55→17:19)
[2023-12-25] MEDS: PROTEASE PO SCH ×3 (07:55→17:19)
[2023-12-25] MEDS: AMYLASE PO SCH ×3 (07:55→17:19)
[2023-12-25] MEDS ORDERED: Insulin Lispro 100 Unit/ML 3 ML KwikPen SUBCUT SCH (08:15)
[2023-12-25] MEDS: Insulin Lispro 100 Unit/ML 3 ML KwikPen SUBCUT SCH ×5 (08:33→18:30)
[2023-12-25] MEDS ORDERED: HYDROmorphone 0.5 MG/0.5 ML Syringe IVPUSH PRN (08:37)
[2023-12-25] MEDS: Ondansetron 4 MG Tab.DIS PO PRN (09:29)
[2023-12-25] MEDS: Furosemide 40 MG/4 ML VIAL IVPUSH SCH (09:29)
[2023-12-25] MEDS: Nicotine 21 MG/24 Hr Patch TRDERM SCH (09:29)
[2023-12-25] MEDS: ALPRAZolam 1 MG Tab PO SCH ×3 (09:32→20:39)
[2023-12-25] MEDS: Spironolactone 25 MG Tab PO SCH ×2 (09:33→09:34)
[2023-12-25] MEDS: Sodium Bicarbonate 650 MG Tab PO SCH ×2 (09:35→20:40)
[2023-12-25] MEDS: Labetalol 100 MG Tab PO SCH ×2 (09:35→20:39)
[2023-12-25] MEDS: Losartan 25 MG Tab PO SCH (09:36)
[2023-12-25] MEDS: Torsemide 20 MG Tab PO SCH (09:36)
[2023-12-25] MEDS: Insulin Glargine,Human Rec. Analog 100 Units/ML 3 ML Pen SUBCUT SCH (09:39)
[2023-12-25] MEDS: Heparin Sodium 5,000 Units/ML Vial SUBCUT SCH (17:18)
[2023-12-25] MEDS: atorvaSTATin 20 MG Tab PO SCH (20:40)
[2023-12-26] MEDS: HYDROmorphone 0.5 MG/0.5 ML Syringe IVPUSH PRN ×5 (04:36→12:39)
[2023-12-26] MEDS: Pantoprazole 40 MG Tab.CR PO SCH (06:12)
[2023-12-26] MEDS: Heparin Sodium 5,000 Units/ML Vial SUBCUT SCH (06:13)
[2023-12-26] MEDS: LIPASE PO SCH ×2 (07:39→11:28)
[2023-12-26] MEDS: AMYLASE PO SCH ×2 (07:39→11:28)
[2023-12-26] MEDS: PROTEASE PO SCH ×2 (07:39→11:28)
[2023-12-26] MEDS: Insulin Lispro 100 Unit/ML 3 ML KwikPen SUBCUT SCH ×4 (07:41→12:40)
[2023-12-26] MEDS: Furosemide 40 MG/4 ML VIAL IVPUSH SCH (08:30)
[2023-12-26 08:31] LABS: ANION GAP 15.7 (5-15); CALCIUM 7.7 mg/dL (8.5-10.1); CREATININE 2.2 mg/dL (0.55-1.02); EST CRCL DRUG DOSING (CG) 32.14 mL/min; POTASSIUM,K 4.7 mEq/L (3.5-5.1)
[2023-12-26] MEDS: Nicotine 21 MG/24 Hr Patch TRDERM SCH (08:31)
[2023-12-26] MEDS: Torsemide 20 MG Tab PO SCH (08:33)
[2023-12-26] MEDS: Labetalol 100 MG Tab PO SCH (08:33)
[2023-12-26] MEDS: ALPRAZolam 1 MG Tab PO SCH (08:33)
[2023-12-26] MEDS: Losartan 25 MG Tab PO SCH (08:33)
[2023-12-26] MEDS: Sodium Bicarbonate 650 MG Tab PO SCH (08:34)
[2023-12-26] MEDS: Spironolactone 25 MG Tab PO SCH (08:34)
[2023-12-26] MEDS: Insulin Glargine,Human Rec. Analog 100 Units/ML 3 ML Pen SUBCUT SCH (08:38)
== END 2023-12-26 13:30 | disposition home or self-care (01) | DRG 641 ==
LOC: JD.ED 14:47 → JD.MS 12-24 14:09 → OBSVTOIN 12-24 14:10 → JD.MS 12-25 17:32
PROVIDERS: ADMIT Student in an Organized Health Care Education/Training Program; ATTEND Student in an Organized Health Care Education/Training Program
DX: E87.70 Fluid overload, unspecified (principal); J90 Pleural effusion, not elsewhere classified; K86.1 Other chronic pancreatitis; N17.9 Acute kidney failure, unspecified; I12.9 Hypertensive chronic kidney disease with stage 1 through stage 4 chronic kidney disease, or unspecified chronic kidney disease; E10.22 Type 1 diabetes mellitus with diabetic chronic kidney disease; K21.9 Gastro-esophageal reflux disease without esophagitis; F32.A Depression, unspecified; F41.9 Anxiety disorder, unspecified; M19.90 Unspecified osteoarthritis, unspecified site; R60.1 Generalized edema; G43.A0 Cyclical vomiting, in migraine, not intractable; G89.29 Other chronic pain; D63.1 Anemia in chronic kidney disease; E10.65 Type 1 diabetes mellitus with hyperglycemia; N18.31 Chronic kidney disease, stage 3a; F17.210 Nicotine dependence, cigarettes, uncomplicated; Z76.5 Malingerer [conscious simulation]; I10 Essential (primary) hypertension; J45.909 Unspecified asthma, uncomplicated; Z88.6 Allergy status to analgesic agent; F17.200 Nicotine dependence, unspecified, uncomplicated; E10.9 Type 1 diabetes mellitus without complications; Z88.5 Allergy status to narcotic agent; Z91.040 Latex allergy status; Z91.148 Patient's other noncompliance with medication regimen for other reason; Z88.8 Allergy status to other drugs, medicaments and biological substances; Z91.048 Other nonmedicinal substance allergy status; Z79.4 Long term (current) use of insulin; Z79.899 Other long term (current) drug therapy; Z90.49 Acquired absence of other specified parts of digestive tract; Z86.16 Personal history of COVID-19
CPT/HCPCS: 36415 ×2; 71046; 71275; 74177; 80048; 80053; 81001; 83036; 83540; 83690; 83880; 84466; 84484; 85025; 85027; 85379; 93005; 93971; 96361; 96374; 96375; 96376; 99285; A9270 ×14; C1758; J1170 ×6; J1940 ×2; J2270 ×3; J2405; J7030; Q9967; 82947; 93010; 93307; J1644; J1815; J1815-GY

== ENCOUNTER 2024-03-29 14:39 | Emergency (ER) | payer MEDICAID, OTHER ==
[2024-03-29] MEDS: Sodium Chloride 0.9% 10 ML Syringe FLUSH PRN (15:45)
[2024-03-29] MEDS: Sodium Chloride 0.9% 1,000 ML IV STA (15:45)
[2024-03-29] MEDS: Ondansetron 4 MG/2 ML SDV IVPUSH ONE (15:45)
[2024-03-29] MEDS: HYDROmorphone 1 MG/ML Syringe IVPUSH ONE ×2 (15:49→17:12)
[2024-03-29 15:51] LABS: BASOPHILS PERCENT AUTO 0.3 % (0.0-1.0); HEMATOCRIT 48.5 % (37.0-47.0); HEMOGLOBIN 16.3 gm/dl (12.0-16.0); IMMATURE GRAN ABSOLUTE AUTO 0.03 K/mm3 (0.00-0.05); IMMATURE GRAN PERCENT AUTO 0.3 % (0.0-0.4); LYMPHOCYTES ABSOLUTE AUTO 1.5 K/mm3 (1.0-4.8); LYMPHOCYTES PERCENT AUTO 14.3 % (24.0-44.0); MEAN CORPUSCULAR HGB CONC 33.6 g/dl (32.0-36.0); MEAN CORPUSCULAR VOLUME 92.2 fl (83.0-99.0); MEAN PLATELET VOLUME 9.3 fl (9.4-12.3); MONOCYTES ABSOLUTE AUTO 0.5 K/mm3 (0.0-0.8); MONOCYTES PERCENT AUTO 4.7 % (0.0-8.0); NEUTROPHILS ABSOLUTE AUTO 8.5 K/mm3 (1.8-7.7); NEUTROPHILS PERCENT AUTO 80.4 % (41.0-71.0); PLATELET COUNT,PLT 285 K/mm3 (150-400); RED BLOOD CELL COUNT 5.26 M/mm3 (4.10-5.30)
[2024-03-29 15:56] LABS: ALBUMIN 3.7 g/dl (3.4-5.0); ANION GAP 15.1 (5-15); BILIRUBIN TOTAL 0.5 mg/dL (0.2-1.0); CALCIUM 9.9 mg/dL (8.5-10.1); CREATININE 2.9 mg/dL (0.55-1.02); EST CRCL DRUG DOSING (CG) 19.9 mL/min; POTASSIUM,K 3.1 mEq/L (3.5-5.1); PROTEIN TOTAL,TP 7.5 g/dl (6.4-8.2)
[2024-03-29] MEDS: Prochlorperazine 10 MG/2 ML SDV IVPUSH ONE (17:09)
[2024-03-29] MEDS: Sodium Chloride 0.9% 1,000 ML IV ONE (17:09)
[2024-03-29] MEDS: HYDROmorphone 0.5 MG/0.5 ML Syringe IVPUSH ONE (18:16)
== END 2024-03-29 18:38 | disposition home or self-care (01) ==
LOC: JD.ED 14:39
DX: K92.0 Hematemesis (principal); E86.0 Dehydration; E10.40 Type 1 diabetes mellitus with diabetic neuropathy, unspecified; R10.84 Generalized abdominal pain; N17.9 Acute kidney failure, unspecified; E87.6 Hypokalemia; I12.9 Hypertensive chronic kidney disease with stage 1 through stage 4 chronic kidney disease, or unspecified chronic kidney disease; N18.9 Chronic kidney disease, unspecified; Z86.16 Personal history of COVID-19; Z79.4 Long term (current) use of insulin; Z79.899 Other long term (current) drug therapy; Z91.040 Latex allergy status; Z91.048 Other nonmedicinal substance allergy status; Z88.8 Allergy status to other drugs, medicaments and biological substances
CPT/HCPCS: 36415; 80053; 83690; 85025; 96361; 96374; 96375; 96376; 99284; J0780; J1170; J2405; J3490; J7030

== ENCOUNTER 2024-05-13 11:58 | Inpatient (IN) | payer MEDICAID ==
[2024-05-13] MEDS: Sodium Chloride 0.9% 1,000 ML IV ONE (12:27)
[2024-05-13 12:42] LABS: BASE EXCESS VENOUS 3.7 (-4.0-2.0); BICARBONATE,VENOUS 30.3 meq/L (22-26); O2 SATURATION VENOUS 47.4; PCO2 VENOUS 58.2 mmHg (41-51); PH,VENOUS 7.34 (7.30-7.40)
[2024-05-13 12:43] LABS: BASOPHILS ABSOLUTE AUTO 0.1 K/mm3 (0.0-0.2); BASOPHILS PERCENT AUTO 1.3 % (0.0-1.0); EOSINOPHILS ABSOLUTE AUTO 0.6 K/mm3 (0.0-0.4); EOSINOPHILS PERCENT AUTO 7.4 % (0.0-6.0); HEMATOCRIT 40.5 % (37.0-47.0); HEMOGLOBIN 13.1 gm/dl (12.0-16.0); IMMATURE GRAN ABSOLUTE AUTO 0.04 K/mm3 (0.00-0.05); IMMATURE GRAN PERCENT AUTO 0.5 % (0.0-0.4); LYMPHOCYTES ABSOLUTE AUTO 2.9 K/mm3 (1.0-4.8); LYMPHOCYTES PERCENT AUTO 36.6 % (24.0-44.0); MEAN CORPUSCULAR HEMOGLOBIN 30.2 pg (28.0-32.0); MEAN CORPUSCULAR HGB CONC 32.3 g/dl (32.0-36.0); MEAN CORPUSCULAR VOLUME 93.3 fl (83.0-99.0); MONOCYTES ABSOLUTE AUTO 0.6 K/mm3 (0.0-0.8); MONOCYTES PERCENT AUTO 7.1 % (0.0-8.0); NEUTROPHILS ABSOLUTE AUTO 3.7 K/mm3 (1.8-7.7); NEUTROPHILS PERCENT AUTO 47.1 % (41.0-71.0); PLATELET COUNT,PLT 250 K/mm3 (150-400); RED BLOOD CELL COUNT 4.34 M/mm3 (4.10-5.30); WHITE BLOOD CELL COUNT,WBC 7.85 K/mm3 (3.9-11.3)
[2024-05-13 12:53] LABS: ALBUMIN 3.2 g/dl (3.4-5.0); ANION GAP 14.1 (5-15); BILIRUBIN TOTAL 0.3 mg/dL (0.2-1.0); BUN/CREATININE RATIO 9.1 (14-18); CALCIUM 8.3 mg/dL (8.5-10.1); CREATININE 6.8 mg/dL (0.55-1.02); EST CRCL DRUG DOSING (CG) 7.71 mL/min; POTASSIUM,K 3.1 mEq/L (3.5-5.1); PROTEIN TOTAL,TP 6.3 g/dl (6.4-8.2)
[2024-05-13] MEDS: HYDROmorphone 2 MG Tab PO ONE (13:24)
[2024-05-13] MEDS: Lactated Ringers 1,000 ML IV ONE (13:44)
[2024-05-13] MEDS: fentaNYL 25 MCG/HR Transdermal Patch TRDERM SCH (15:46)
[2024-05-13] MEDS: HYDROmorphone 1 MG/ML Syringe IVPUSH ONE ×2 (18:59→19:36)
[2024-05-13] MEDS: Heparin Sodium 5,000 Units/ML Vial SUBCUT SCH ×2 (19:11→20:51)
[2024-05-13 21:13] LABS: APPEARANCE,URINE CLEAR (Clear); BILIRUBIN,URINE NEGATIVE (Negative); COLOR,URINE YELLOW (Yellow); GLUCOSE,URINE NEGATIVE (Negative); KETONES,URINE NEGATIVE (Negative); LEUKOCYTE ESTERASE,URINE NEGATIVE (Negative); NITRITE,URINE NEGATIVE (Negative); OCCULT BLOOD,URINE NEGATIVE (Negative); PROTEIN,URINE 2+ (Negative); UROBILINOGEN,URINE 0.2 (0.2-1.0)
[2024-05-13] MEDS ORDERED: HYDROmorphone 2 MG Tab PO PRN (21:15)
[2024-05-13] MEDS ORDERED: Naloxone 0.4 MG/ML SDV IVPUSH PRN (21:17)
[2024-05-13 21:46] LABS: BACTERIA,URINE RARE /hpf (FEW); RBC,URINE 0-5 /hpf (0-5); SQUAMOUS EPITHELIAL CELLS,UR 0-5 /hpf (0-5); WBC,URINE 0-5 /hpf (0-5)
[2024-05-13 21:47] LABS: MUCUS,URINE NOT SEEN /hpf (FEW)
[2024-05-13] MEDS: ALPRAZolam 1 MG Tab PO PRN (23:20)
[2024-05-13] MEDS: HYDROmorphone 1 MG/ML Syringe IVPUSH PRN (23:21)
[2024-05-14] MEDS: Lactated Ringers 1,000 ML IV SCH (03:30)
[2024-05-14 04:54] LABS: BASOPHILS ABSOLUTE AUTO 0.1 K/mm3 (0.0-0.2); BASOPHILS PERCENT AUTO 1.1 % (0.0-1.0); EOSINOPHILS ABSOLUTE AUTO 0.6 K/mm3 (0.0-0.4); EOSINOPHILS PERCENT AUTO 7.6 % (0.0-6.0); HEMATOCRIT 33.8 % (37.0-47.0); IMMATURE GRAN ABSOLUTE AUTO 0.03 K/mm3 (0.00-0.05); IMMATURE GRAN PERCENT AUTO 0.4 % (0.0-0.4); LYMPHOCYTES ABSOLUTE AUTO 3.1 K/mm3 (1.0-4.8); LYMPHOCYTES PERCENT AUTO 36.7 % (24.0-44.0); MEAN CORPUSCULAR HEMOGLOBIN 30.2 pg (28.0-32.0); MEAN CORPUSCULAR HGB CONC 32.5 g/dl (32.0-36.0); MEAN CORPUSCULAR VOLUME 92.9 fl (83.0-99.0); MEAN PLATELET VOLUME 9.9 fl (9.4-12.3); MONOCYTES ABSOLUTE AUTO 0.5 K/mm3 (0.0-0.8); MONOCYTES PERCENT AUTO 5.7 % (0.0-8.0); NEUTROPHILS ABSOLUTE AUTO 4.1 K/mm3 (1.8-7.7); NEUTROPHILS PERCENT AUTO 48.5 % (41.0-71.0); PLATELET COUNT,PLT 201 K/mm3 (150-400); RED BLOOD CELL COUNT 3.64 M/mm3 (4.10-5.30); WHITE BLOOD CELL COUNT,WBC 8.37 K/mm3 (3.9-11.3)
[2024-05-14 05:07] LABS: ALBUMIN 2.6 g/dl (3.4-5.0); ANION GAP 10.2 (5-15); BILIRUBIN TOTAL 0.2 mg/dL (0.2-1.0); BUN/CREATININE RATIO 12.4 (14-18); CALCIUM 7.6 mg/dL (8.5-10.1); CREATININE 4.6 mg/dL (0.55-1.02); MAGNESIUM 1.6 mg/dL (1.8-2.4); POTASSIUM,K 3.2 mEq/L (3.5-5.1); PROTEIN TOTAL,TP 5.2 g/dl (6.4-8.2)
[2024-05-14 05:31] LABS: EST CRCL DRUG DOSING (CG) 11.29 mL/min
[2024-05-14] MEDS ORDERED: Albuterol 6.7 GM Inhaler INH PRN (07:14)
[2024-05-14] MEDS: buPROPion 150 MG Tab.ER PO SCH (08:02)
[2024-05-14] MEDS: Chlorthalidone 25 MG Tab PO SCH (08:02)
[2024-05-14] MEDS: Folic Acid 1 MG Tab PO SCH (08:03)
[2024-05-14] MEDS: Torsemide 20 MG Tab PO SCH (08:08)
[2024-05-14] MEDS: Labetalol 100 MG Tab PO SCH (08:08)
[2024-05-14] MEDS: ALPRAZolam 1 MG Tab PO PRN (08:43)
[2024-05-14] MEDS: Potassium Chloride 10 MEQ in Premix Bag 1 BAG IV SCH (08:43)
[2024-05-14] MEDS ORDERED: Docusate Sodium 100 MG Cap PO PRN (09:57)
[2024-05-14 10:35] LABS: CREATININE,URINE RAND 85.1 mg/dL (30.0-125.0); PROTEIN CREATININE RATIO,URINE 665.1 mg/g (0-149); PROTEIN,URINE RANDOM 56.6 mg/dL (0.0-11.8)
[2024-05-14] MEDS ORDERED: Non-Formulary Medication 1 Each (Amylase/Lipase/Protease 1 CAP Cap.Cr) PO SCH (11:00)
[2024-05-14] MEDS: Acetaminophen 325 MG Tab PO PRN (12:33)
[2024-05-14] MEDS: Magnesium Sulfate/Water 2 GM in Premix Bag 1 BAG IV ONE (14:01)
[2024-05-14] MEDS: HYDROmorphone 2 MG Tab PO PRN (14:02)
[2024-05-14] MEDS: Polymyxin B/Trimethoprim 10 ML Bottle EYELF SCH ×2 (17:12→19:57)
[2024-05-14] MEDS: Cetirizine 10 MG Tab PO SCH (20:45)
[2024-05-15] MEDS: Ondansetron 4 MG Tab.DIS PO PRN (02:26)
[2024-05-15] MEDS: HYDROmorphone 1 MG/ML Syringe IVPUSH PRN ×2 (03:54→12:24)
[2024-05-15 05:37] LABS: BASOPHILS ABSOLUTE AUTO 0.1 K/mm3 (0.0-0.2); BASOPHILS PERCENT AUTO 0.8 % (0.0-1.0); EOSINOPHILS ABSOLUTE AUTO 0.6 K/mm3 (0.0-0.4); HEMATOCRIT 30.5 % (37.0-47.0); IMMATURE GRAN ABSOLUTE AUTO 0.02 K/mm3 (0.00-0.05); IMMATURE GRAN PERCENT AUTO 0.3 % (0.0-0.4); LYMPHOCYTES ABSOLUTE AUTO 2.9 K/mm3 (1.0-4.8); LYMPHOCYTES PERCENT AUTO 40.7 % (24.0-44.0); MEAN CORPUSCULAR HEMOGLOBIN 30.3 pg (28.0-32.0); MEAN CORPUSCULAR HGB CONC 32.8 g/dl (32.0-36.0); MEAN CORPUSCULAR VOLUME 92.4 fl (83.0-99.0); MONOCYTES ABSOLUTE AUTO 0.4 K/mm3 (0.0-0.8); MONOCYTES PERCENT AUTO 5.6 % (0.0-8.0); NEUTROPHILS ABSOLUTE AUTO 3.2 K/mm3 (1.8-7.7); NEUTROPHILS PERCENT AUTO 44.6 % (41.0-71.0); PLATELET COUNT,PLT 186 K/mm3 (150-400); WHITE BLOOD CELL COUNT,WBC 7.13 K/mm3 (3.9-11.3)
[2024-05-15 05:50] LABS: ALBUMIN 2.4 g/dl (3.4-5.0); ANION GAP 11.6 (5-15); BILIRUBIN TOTAL 0.2 mg/dL (0.2-1.0); BUN/CREATININE RATIO 17.3 (14-18); CALCIUM 8.1 mg/dL (8.5-10.1); EST CRCL DRUG DOSING (CG) 17.31 mL/min; MAGNESIUM 2.1 mg/dL (1.8-2.4); PHOSPHORUS 3.6 mg/dL (2.6-4.7); POTASSIUM,K 3.6 mEq/L (3.5-5.1); PROTEIN TOTAL,TP 4.8 g/dl (6.4-8.2)
[2024-05-15] MEDS: HYDROmorphone 1 MG/ML Syringe IVPUSH ONE (10:40)
[2024-05-16] MEDS ORDERED: fentaNYL 25 MCG/HR Transdermal Patch TOP SCH (15:30)
== END 2024-05-15 14:30 | disposition home or self-care (01) | DRG 683 ==
LOC: JD.ED 11:58 → JD.MS 15:41 → UNDOADMIN 15:41
PROVIDERS: ADMIT Internal Medicine; ATTEND Internal Medicine
DX: N17.9 Acute kidney failure, unspecified (principal); F11.20 Opioid dependence, uncomplicated; N18.9 Chronic kidney disease, unspecified; K86.1 Other chronic pancreatitis; R64 Cachexia; Z68.1 Body mass index [BMI] 19.9 or less, adult; K31.84 Gastroparesis; K21.9 Gastro-esophageal reflux disease without esophagitis; F32.A Depression, unspecified; Z91.048 Other nonmedicinal substance allergy status; F41.9 Anxiety disorder, unspecified; E10.22 Type 1 diabetes mellitus with diabetic chronic kidney disease; E10.43 Type 1 diabetes mellitus with diabetic autonomic (poly)neuropathy; M19.90 Unspecified osteoarthritis, unspecified site; G89.29 Other chronic pain; E86.0 Dehydration; E10.40 Type 1 diabetes mellitus with diabetic neuropathy, unspecified; Z76.5 Malingerer [conscious simulation]; J45.20 Mild intermittent asthma, uncomplicated; I12.9 Hypertensive chronic kidney disease with stage 1 through stage 4 chronic kidney disease, or unspecified chronic kidney disease; F17.210 Nicotine dependence, cigarettes, uncomplicated; Z91.040 Latex allergy status; Z88.5 Allergy status to narcotic agent; Z88.8 Allergy status to other drugs, medicaments and biological substances; Z79.4 Long term (current) use of insulin; Z79.899 Other long term (current) drug therapy; Z86.16 Personal history of COVID-19; Z90.49 Acquired absence of other specified parts of digestive tract
CPT/HCPCS: 36415; 80053; 82803; 82947; 83690; 84703; 85025; A9270; J7030; J7120; 76775; 76775-26; 81001; 82570; 83735; 84100; 84156; 84300; 93976; 93976-26; 97161-GP; J1170; J1644; J3475; J3480; J3490

== ENCOUNTER 2024-09-27 21:26 | Emergency (ER) | payer MEDICAID, OTHER ==
[2024-09-27] MEDS ORDERED: Sodium Chloride 0.9% 10 ML Syringe FLUSH PRN (22:00)
[2024-09-27 22:15] LABS: BASOPHILS ABSOLUTE AUTO 0.1 K/mm3 (0.0-0.2); BASOPHILS PERCENT AUTO 0.3 % (0.0-1.0); HEMATOCRIT 45.6 % (37.0-47.0); HEMOGLOBIN 14.6 gm/dl (12.0-16.0); IMMATURE GRAN ABSOLUTE AUTO 0.04 K/mm3 (0.00-0.05); IMMATURE GRAN PERCENT AUTO 0.3 % (0.0-0.4); LYMPHOCYTES ABSOLUTE AUTO 1.3 K/mm3 (1.0-4.8); LYMPHOCYTES PERCENT AUTO 9.2 % (24.0-44.0); MEAN CORPUSCULAR HEMOGLOBIN 30.5 pg (28.0-32.0); MEAN CORPUSCULAR VOLUME 95.2 fl (83.0-99.0); MEAN PLATELET VOLUME 10.1 fl (9.4-12.3); MONOCYTES ABSOLUTE AUTO 0.5 K/mm3 (0.0-0.8); MONOCYTES PERCENT AUTO 3.7 % (0.0-8.0); NEUTROPHILS ABSOLUTE AUTO 12.5 K/mm3 (1.8-7.7); NEUTROPHILS PERCENT AUTO 86.5 % (41.0-71.0); PLATELET COUNT,PLT 192 K/mm3 (150-400); RED BLOOD CELL COUNT 4.79 M/mm3 (4.10-5.30)
[2024-09-27] MEDS: Pantoprazole 80 MG in Sodium Chloride 0.9% 100 ML IV SCH (22:33)
[2024-09-27] MEDS: Sodium Chloride 0.9% 500 ML IV ONE (22:33)
[2024-09-27] MEDS: Pantoprazole 40 MG Vial IVPUSH ONE (22:33)
[2024-09-27] MEDS: Ondansetron 4 MG/2 ML SDV IVPUSH ONE (22:34)
[2024-09-27] MEDS: Ketorolac 15 MG/ML SDV IVPUSH ONE (22:35)
[2024-09-27 22:42] LABS: INR 1.04
[2024-09-27 22:51] LABS: A/G RATIO 0.8 (1-2); ANION GAP 13.3 (5-15); BILIRUBIN TOTAL 0.5 mg/dL (0.2-1.0); BUN/CREATININE RATIO 12.3 (14-18); CALCIUM 9.2 mg/dL (8.5-10.1); EST CRCL DRUG DOSING (CG) 22.04 mL/min; MAGNESIUM 1.9 mg/dL (1.8-2.4)
[2024-09-27 22:54] LABS: POTASSIUM,K 4.3 mEq/L (3.5-5.1)
[2024-09-28] MEDS: Sodium Chloride 0.9% 500 ML IV ONE (01:18)
[2024-09-28 01:58] LABS: CORONAVIRUS COVID-19 NAA NEGATIVE (NEGATIVE); INFLUENZA A NAA NEGATIVE (NEGATIVE); RESPIRATORY SYNCYTIAL VIR NAA NEGATIVE (NEGATIVE)
[2024-09-28] MEDS: HYDROmorphone 1 MG/ML Syringe IVPUSH ONE ×2 (02:50→06:05)
[2024-09-28] MEDS: Ondansetron 4 MG/2 ML SDV IVPUSH ONE (04:17)
== END 2024-09-28 06:43 ==
LOC: JD.ED 21:26
DX: R10.84 Generalized abdominal pain (principal); R79.89 Other specified abnormal findings of blood chemistry; R94.31 Abnormal electrocardiogram [ECG] [EKG]; I13.0 Hypertensive heart and chronic kidney disease with heart failure and stage 1 through stage 4 chronic kidney disease, or unspecified chronic kidney disease; I50.9 Heart failure, unspecified; N18.9 Chronic kidney disease, unspecified; E10.22 Type 1 diabetes mellitus with diabetic chronic kidney disease; Z86.16 Personal history of COVID-19; Z87.19 Personal history of other diseases of the digestive system; Z90.49 Acquired absence of other specified parts of digestive tract; Z79.4 Long term (current) use of insulin; Z79.899 Other long term (current) drug therapy; Z79.51 Long term (current) use of inhaled steroids; Z91.040 Latex allergy status; Z91.048 Other nonmedicinal substance allergy status; Z88.8 Allergy status to other drugs, medicaments and biological substances; Z88.5 Allergy status to narcotic agent
CPT/HCPCS: 0241U; 36415; 71045; 74176; 80053; 83605; 83690; 83735; 84484; 84703; 85025; 85610; 85730; 86850; 86900; 86901; 87040; 93005; 96365; 96366; 96375; 96376; 99285; J1171; J1885; J2405; J2470; J3490; J7030; 93010

== ENCOUNTER 2024-10-03 14:09 | Emergency (ER) | payer MEDICAID ==
[2024-10-03] MEDS ORDERED: Sodium Chloride 0.9% 10 ML Syringe FLUSH PRN (14:30)
[2024-10-03] MEDS: Ondansetron 4 MG/2 ML SDV IVPUSH ONE (14:55)
[2024-10-03] MEDS: Sodium Chloride 0.9% 1,000 ML IV STA (14:55)
[2024-10-03] MEDS: Pantoprazole 40 MG Vial IVPUSH ONE (15:03)
[2024-10-03 15:13] LABS: BASOPHILS PERCENT AUTO 0.3 % (0.0-1.0); EOSINOPHILS PERCENT AUTO 0.1 % (0.0-6.0); HEMATOCRIT 40.6 % (37.0-47.0); HEMOGLOBIN 11.9 gm/dl (12.0-16.0); IMMATURE GRAN ABSOLUTE AUTO 0.03 K/mm3 (0.00-0.05); IMMATURE GRAN PERCENT AUTO 0.2 % (0.0-0.4); LYMPHOCYTES ABSOLUTE AUTO 0.4 K/mm3 (1.0-4.8); LYMPHOCYTES PERCENT AUTO 3.1 % (24.0-44.0); MEAN CORPUSCULAR HEMOGLOBIN 30.1 pg (28.0-32.0); MEAN CORPUSCULAR HGB CONC 29.3 g/dl (32.0-36.0); MEAN CORPUSCULAR VOLUME 102.8 fl (83.0-99.0); MEAN PLATELET VOLUME 10.3 fl (9.4-12.3); MONOCYTES ABSOLUTE AUTO 0.5 K/mm3 (0.0-0.8); NEUTROPHILS ABSOLUTE AUTO 12.1 K/mm3 (1.8-7.7); NEUTROPHILS PERCENT AUTO 92.3 % (41.0-71.0); PLATELET COUNT,PLT 212 K/mm3 (150-400); RED BLOOD CELL COUNT 3.95 M/mm3 (4.10-5.30); WHITE BLOOD CELL COUNT,WBC 13.08 K/mm3 (3.9-11.3)
[2024-10-03 15:27] LABS: ALBUMIN 3.2 g/dl (3.4-5.0); ANION GAP 28.2 (5-15); BILIRUBIN TOTAL 0.9 mg/dL (0.2-1.0); BUN/CREATININE RATIO 12.5 (14-18); EST CRCL DRUG DOSING (CG) 15.94 mL/min; MAGNESIUM 2.2 mg/dL (1.8-2.4); POTASSIUM,K 5.2 mEq/L (3.5-5.1); PROTEIN TOTAL,TP 6.4 g/dl (6.4-8.2)
[2024-10-03 15:54] LABS: BASE EXCESS ARTERIAL -15.9 (-2-2.0)
[2024-10-03] MEDS: HYDROmorphone 0.5 MG/0.5 ML Syringe IVPUSH ONE ×2 (16:13→18:50)
[2024-10-03] MEDS: Insulin Regular in 0.9 % NACL 100 ML IV SCH (16:32)
[2024-10-03] MEDS: Sodium Chloride 0.9% 1,000 ML IV ONE ×2 (16:34→18:51)
[2024-10-03] MEDS: Labetalol 100 MG/20 ML MDV IVPUSH ONE (17:25)
== END 2024-10-03 19:00 ==
LOC: JD.ED 14:09
DX: I13.2 Hypertensive heart and chronic kidney disease with heart failure and with stage 5 chronic kidney disease, or end stage renal disease (principal); E10.22 Type 1 diabetes mellitus with diabetic chronic kidney disease; N18.6 End stage renal disease; I50.9 Heart failure, unspecified; N17.9 Acute kidney failure, unspecified; Z99.2 Dependence on renal dialysis; E10.10 Type 1 diabetes mellitus with ketoacidosis without coma; Z86.73 Personal history of transient ischemic attack (TIA), and cerebral infarction without residual deficits; Z86.16 Personal history of COVID-19; Z79.4 Long term (current) use of insulin; Z79.899 Other long term (current) drug therapy; Z91.040 Latex allergy status; Z88.5 Allergy status to narcotic agent; Z88.8 Allergy status to other drugs, medicaments and biological substances; Z91.048 Other nonmedicinal substance allergy status
CPT/HCPCS: 36415; 36600; 74176; 80053; 82803; 82947; 83690; 83735; 83930; 85025; 86850; 86900; 86901; 96361; 96374; 96375; 96376; 99285; J1171; J1815; J1920; J2405; J2470; J7030

== ENCOUNTER 2024-10-14 16:19 | Emergency (ER) | payer MEDICAID ==
[2024-10-14 17:01] LABS: APPEARANCE,URINE SLT CLOUDY (Clear); BILIRUBIN,URINE NEGATIVE (Negative); COLOR,URINE LIGHT YELLOW (Yellow); GLUCOSE,URINE TRACE (Negative); KETONES,URINE NEGATIVE (Negative); LEUKOCYTE ESTERASE,URINE NEGATIVE (Negative); NITRITE,URINE NEGATIVE (Negative); OCCULT BLOOD,URINE TRACE-INTACT (Negative); PROTEIN,URINE 3+ (Negative); UROBILINOGEN,URINE 0.2 (0.2-1.0)
[2024-10-14 17:08] LABS: WBC,URINE 0-5 /hpf (0-5)
[2024-10-14 17:09] LABS: BACTERIA,URINE MODERATE /hpf (FEW); MUCUS,URINE FEW /hpf (FEW)
[2024-10-14 17:25] LABS: BASOPHILS PERCENT AUTO 0.5 % (0.0-1.0); EOSINOPHILS ABSOLUTE AUTO 0.2 K/mm3 (0.0-0.4); EOSINOPHILS PERCENT AUTO 3.4 % (0.0-6.0); HEMATOCRIT 28.9 % (37.0-47.0); HEMOGLOBIN 9.1 gm/dl (12.0-16.0); IMMATURE GRAN ABSOLUTE AUTO 0.04 K/mm3 (0.00-0.05); IMMATURE GRAN PERCENT AUTO 0.6 % (0.0-0.4); LYMPHOCYTES ABSOLUTE AUTO 1.8 K/mm3 (1.0-4.8); LYMPHOCYTES PERCENT AUTO 28.8 % (24.0-44.0); MEAN CORPUSCULAR HEMOGLOBIN 30.7 pg (28.0-32.0); MEAN CORPUSCULAR HGB CONC 31.5 g/dl (32.0-36.0); MEAN CORPUSCULAR VOLUME 97.6 fl (83.0-99.0); MEAN PLATELET VOLUME 9.2 fl (9.4-12.3); MONOCYTES ABSOLUTE AUTO 0.3 K/mm3 (0.0-0.8); MONOCYTES PERCENT AUTO 5.1 % (0.0-8.0); NEUTROPHILS ABSOLUTE AUTO 3.8 K/mm3 (1.8-7.7); NEUTROPHILS PERCENT AUTO 61.6 % (41.0-71.0); PLATELET COUNT,PLT 233 K/mm3 (150-400); RED BLOOD CELL COUNT 2.96 M/mm3 (4.10-5.30); WHITE BLOOD CELL COUNT,WBC 6.22 K/mm3 (3.9-11.3)
[2024-10-14] MEDS ORDERED: Sodium Chloride 0.9% 10 ML Syringe FLUSH PRN (17:25)
[2024-10-14] MEDS ORDERED: Naloxone 0.4 MG/ML SDV IVPUSH PRN (17:33)
[2024-10-14 17:43] LABS: PROTHROMBIN TIME 9.5 SECONDS (9.7-12.0)
[2024-10-14 17:44] LABS: PTT,PARTIAL THROMBOPLSTIN TIME 25.6 SECONDS (21.7-31.4)
[2024-10-14 17:46] LABS: A/G RATIO 0.6 (1-2); ANION GAP 9.9 (5-15); BILIRUBIN TOTAL 0.2 mg/dL (0.2-1.0); BUN/CREATININE RATIO 12.7 (14-18); CALCIUM 8.2 mg/dL (8.5-10.1); CREATININE 2.2 mg/dL (0.55-1.02); EST CRCL DRUG DOSING (CG) 31.82 mL/min; POTASSIUM,K 4.9 mEq/L (3.5-5.1); PROTEIN TOTAL,TP 5.3 g/dl (6.4-8.2)
[2024-10-14 17:48] LABS: C-REACTIVE PROTEIN 0.47 mg/dL (<0.30); INR < 0.93; LACTIC ACID 0.8 mmol/L (0.4-2.0)
[2024-10-14] MEDS: HYDROmorphone 0.5 MG/0.5 ML Syringe IVPUSH ONE (18:04)
[2024-10-14] MEDS: Ondansetron 4 MG/2 ML SDV IVPUSH ONE (18:09)
== END 2024-10-14 20:06 | disposition home or self-care (01) ==
LOC: JD.ED 16:19
DX: M79.662 Pain in left lower leg (principal); M79.661 Pain in right lower leg; K59.00 Constipation, unspecified; I13.0 Hypertensive heart and chronic kidney disease with heart failure and stage 1 through stage 4 chronic kidney disease, or unspecified chronic kidney disease; E10.22 Type 1 diabetes mellitus with diabetic chronic kidney disease; N18.9 Chronic kidney disease, unspecified; I50.9 Heart failure, unspecified; N17.9 Acute kidney failure, unspecified; J45.909 Unspecified asthma, uncomplicated; Z86.16 Personal history of COVID-19; Z90.49 Acquired absence of other specified parts of digestive tract; Z79.4 Long term (current) use of insulin; Z79.899 Other long term (current) drug therapy; Z91.040 Latex allergy status; Z88.5 Allergy status to narcotic agent; Z88.8 Allergy status to other drugs, medicaments and biological substances; Z91.048 Other nonmedicinal substance allergy status
CPT/HCPCS: 36415; 74176; 74176-26; 80053; 81001; 81025; 83605; 83690; 85025; 85379; 85610; 85730; 86140; 93005; 93970; 93970-26; 96374; 96375; 99284-25; J1171; J2405

== ENCOUNTER 2024-11-28 02:33 | Emergency (ER) | payer MEDICAID ==
[2024-11-28] MEDS ORDERED: Sodium Chloride 0.9% 10 ML Syringe FLUSH PRN (02:55)
[2024-11-28] MEDS ORDERED: Sodium Chloride 0.9% 500 ML IV ONE (02:59)
[2024-11-28] MEDS ORDERED: Ondansetron 4 MG/2 ML SDV IVPUSH ONE (03:00)
[2024-11-28] MEDS ORDERED: fentaNYL 100 MCG/2 ML SDV IVPUSH ONE (03:00)
[2024-11-28 03:29] LABS: BASOPHILS ABSOLUTE AUTO 0.1 K/mm3 (0.0-0.2); BASOPHILS PERCENT AUTO 0.8 % (0.0-1.0); EOSINOPHILS ABSOLUTE AUTO 0.1 K/mm3 (0.0-0.4); EOSINOPHILS PERCENT AUTO 0.8 % (0.0-6.0); HEMATOCRIT 37.1 % (37.0-47.0); HEMOGLOBIN 11.4 gm/dl (12.0-16.0); IMMATURE GRAN ABSOLUTE AUTO 0.07 K/mm3 (0.00-0.05); IMMATURE GRAN PERCENT AUTO 1.2 % (0.0-0.4); LYMPHOCYTES ABSOLUTE AUTO 1.7 K/mm3 (1.0-4.8); LYMPHOCYTES PERCENT AUTO 27.8 % (24.0-44.0); MEAN CORPUSCULAR HEMOGLOBIN 30.3 pg (28.0-32.0); MEAN CORPUSCULAR HGB CONC 30.7 g/dl (32.0-36.0); MEAN CORPUSCULAR VOLUME 98.7 fl (83.0-99.0); MEAN PLATELET VOLUME 9.5 fl (9.4-12.3); MONOCYTES ABSOLUTE AUTO 0.5 K/mm3 (0.0-0.8); MONOCYTES PERCENT AUTO 8.5 % (0.0-8.0); NEUTROPHILS ABSOLUTE AUTO 3.6 K/mm3 (1.8-7.7); NEUTROPHILS PERCENT AUTO 60.9 % (41.0-71.0); PLATELET COUNT,PLT 213 K/mm3 (150-400); RED BLOOD CELL COUNT 3.76 M/mm3 (4.10-5.30); WHITE BLOOD CELL COUNT,WBC 5.98 K/mm3 (3.9-11.3)
[2024-11-28] MEDS: Ketorolac 30 MG/ML SDV ONE (03:32)
[2024-11-28 03:53] LABS: A/G RATIO 0.7 (1-2); ALBUMIN 2.2 g/dl (3.4-5.0); ANION GAP 12.2 (5-15); BILIRUBIN TOTAL 0.2 mg/dL (0.2-1.0); BUN/CREATININE RATIO 5.6 (14-18); CALCIUM 7.7 mg/dL (8.5-10.1); CREATININE 4.1 mg/dL (0.55-1.02); EST CRCL DRUG DOSING (CG) 14.97 mL/min; MAGNESIUM 1.8 mg/dL (1.8-2.4); POTASSIUM,K 4.2 mEq/L (3.5-5.1); PROTEIN TOTAL,TP 5.3 g/dl (6.4-8.2)
[2024-11-28 05:34] LABS: APPEARANCE,URINE SLT CLOUDY (Clear); BILIRUBIN,URINE 1+ (Negative); COLOR,URINE DARK YELLOW (Yellow); GLUCOSE,URINE 1+ (Negative); KETONES,URINE TRACE (Negative); LEUKOCYTE ESTERASE,URINE NEGATIVE (Negative); NITRITE,URINE NEGATIVE (Negative); OCCULT BLOOD,URINE 2+ (Negative); PH,URINE 6.5 (5.0-8.0); PROTEIN,URINE 3+ (Negative); UROBILINOGEN,URINE 0.2 (0.2-1.0)
[2024-11-28 05:42] LABS: BACTERIA,URINE MODERATE /hpf (FEW); FINE GRANULAR CASTS,URINE 0-5 /lpf (0-5); MUCUS,URINE NOT SEEN /hpf (FEW); RBC,URINE 20-30 /hpf (0-5); WBC,URINE 0-5 /hpf (0-5)
== END 2024-11-28 06:04 | disposition home or self-care (01) ==
LOC: JD.ED 02:33
DX: R11.2 Nausea with vomiting, unspecified (principal); R10.12 Left upper quadrant pain; R10.32 Left lower quadrant pain; I13.0 Hypertensive heart and chronic kidney disease with heart failure and stage 1 through stage 4 chronic kidney disease, or unspecified chronic kidney disease; I50.9 Heart failure, unspecified; N18.9 Chronic kidney disease, unspecified; E10.22 Type 1 diabetes mellitus with diabetic chronic kidney disease; Z86.16 Personal history of COVID-19; Z79.899 Other long term (current) drug therapy; Z91.040 Latex allergy status; Z88.5 Allergy status to narcotic agent; Z91.048 Other nonmedicinal substance allergy status; Z88.6 Allergy status to analgesic agent
CPT/HCPCS: 36415; 74176; 80053; 81001; 81025; 83690; 83735; 85025; 87428; 93005; 96374; 99284; J1885

== ENCOUNTER 2025-01-14 11:43 | Emergency (ER) | payer MEDICAID ==
[2025-01-14 12:21] LABS: BASOPHILS ABSOLUTE AUTO 0.1 K/mm3 (0.0-0.2); BASOPHILS PERCENT AUTO 0.8 % (0.0-1.0); EOSINOPHILS ABSOLUTE AUTO 0.3 K/mm3 (0.0-0.4); EOSINOPHILS PERCENT AUTO 3.6 % (0.0-6.0); HEMATOCRIT 31.6 % (37.0-47.0); HEMOGLOBIN 9.7 gm/dl (12.0-16.0); IMMATURE GRAN ABSOLUTE AUTO 0.03 K/mm3 (0.00-0.05); IMMATURE GRAN PERCENT AUTO 0.4 % (0.0-0.4); LYMPHOCYTES ABSOLUTE AUTO 0.9 K/mm3 (1.0-4.8); LYMPHOCYTES PERCENT AUTO 12.4 % (24.0-44.0); MEAN CORPUSCULAR HEMOGLOBIN 28.5 pg (28.0-32.0); MEAN CORPUSCULAR HGB CONC 30.7 g/dl (32.0-36.0); MEAN PLATELET VOLUME 11.6 fl (9.4-12.3); MONOCYTES ABSOLUTE AUTO 0.5 K/mm3 (0.0-0.8); MONOCYTES PERCENT AUTO 6.3 % (0.0-8.0); NEUTROPHILS ABSOLUTE AUTO 5.7 K/mm3 (1.8-7.7); NEUTROPHILS PERCENT AUTO 76.5 % (41.0-71.0); PLATELET COUNT,PLT 100 K/mm3 (150-400); WHITE BLOOD CELL COUNT,WBC 7.41 K/mm3 (3.9-11.3)
[2025-01-14 12:23] LABS: MEAN CORPUSCULAR VOLUME 92.9 fl (83.0-99.0)
[2025-01-14 13:01] LABS: A/G RATIO 0.5 (1-2); ALBUMIN 1.7 g/dl (3.4-5.0); ANION GAP 15.7 (5-15); BILIRUBIN TOTAL 0.2 mg/dL (0.2-1.0); BUN/CREATININE RATIO 17.3 (14-18); CALCIUM 7.3 mg/dL (8.5-10.1); CREATININE 4.8 mg/dL (0.55-1.02); EST CRCL DRUG DOSING (CG) 14.58 mL/min; MAGNESIUM 1.8 mg/dL (1.8-2.4); POTASSIUM,K 4.7 mEq/L (3.5-5.1); PROTEIN TOTAL,TP 5.4 g/dl (6.4-8.2)
== END 2025-01-14 13:45 | disposition home or self-care (01) ==
LOC: JD.ED 11:43
DX: I13.0 Hypertensive heart and chronic kidney disease with heart failure and stage 1 through stage 4 chronic kidney disease, or unspecified chronic kidney disease (principal); N18.6 End stage renal disease; I50.9 Heart failure, unspecified; K21.9 Gastro-esophageal reflux disease without esophagitis; E11.22 Type 2 diabetes mellitus with diabetic chronic kidney disease; Z99.2 Dependence on renal dialysis; F17.210 Nicotine dependence, cigarettes, uncomplicated; Z86.16 Personal history of COVID-19; Z90.49 Acquired absence of other specified parts of digestive tract; Z79.4 Long term (current) use of insulin; Z79.899 Other long term (current) drug therapy; Z91.048 Other nonmedicinal substance allergy status; Z88.8 Allergy status to other drugs, medicaments and biological substances; Z91.040 Latex allergy status
CPT/HCPCS: 36415; 80053; 83735; 84100; 85025; 99283

== ENCOUNTER 2025-01-18 20:28 | Emergency (ER) | payer MEDICAID ==
[2025-01-18] MEDS: fentaNYL 100 MCG/2 ML SDV IVPUSH ONE ×2 (21:03→22:15)
[2025-01-18] MEDS: Ondansetron 4 MG/2 ML SDV IVPUSH ONE (21:03)
[2025-01-18] MEDS: Sodium Chloride 0.9% 1,000 ML IV SCH (21:06)
[2025-01-18 21:10] LABS: BASOPHILS ABSOLUTE AUTO 0.1 K/mm3 (0.0-0.2); BASOPHILS PERCENT AUTO 0.3 % (0.0-1.0); EOSINOPHILS PERCENT AUTO 0.3 % (0.0-6.0); HEMATOCRIT 32.2 % (37.0-47.0); HEMOGLOBIN 10.3 gm/dl (12.0-16.0); IMMATURE GRAN PERCENT AUTO 0.6 % (0.0-0.4); LYMPHOCYTES ABSOLUTE AUTO 0.5 K/mm3 (1.0-4.8); LYMPHOCYTES PERCENT AUTO 3.2 % (24.0-44.0); MEAN CORPUSCULAR HEMOGLOBIN 28.5 pg (28.0-32.0); MEAN CORPUSCULAR VOLUME 89.2 fl (83.0-99.0); MEAN PLATELET VOLUME 11.7 fl (9.4-12.3); MONOCYTES ABSOLUTE AUTO 0.6 K/mm3 (0.0-0.8); MONOCYTES PERCENT AUTO 3.5 % (0.0-8.0); NEUTROPHILS ABSOLUTE AUTO 14.7 K/mm3 (1.8-7.7); NEUTROPHILS PERCENT AUTO 92.1 % (41.0-71.0); PLATELET COUNT,PLT 114 K/mm3 (150-400); RED BLOOD CELL COUNT 3.61 M/mm3 (4.10-5.30); WHITE BLOOD CELL COUNT,WBC 15.91 K/mm3 (3.9-11.3)
[2025-01-18 21:39] LABS: A/G RATIO 0.5 (1-2); ALBUMIN 1.9 g/dl (3.4-5.0); ANION GAP 17.4 (5-15); BILIRUBIN TOTAL 0.5 mg/dL (0.2-1.0); BUN/CREATININE RATIO 12.6 (14-18); C-REACTIVE PROTEIN 11.18 mg/dL (<0.30); CALCIUM 7.7 mg/dL (8.5-10.1); CREATININE 4.6 mg/dL (0.55-1.02); EST CRCL DRUG DOSING (CG) 14.04 mL/min; MAGNESIUM 1.6 mg/dL (1.8-2.4); POTASSIUM,K 4.4 mEq/L (3.5-5.1); PROTEIN TOTAL,TP 5.6 g/dl (6.4-8.2)
[2025-01-18 21:41] LABS: LACTIC ACID 0.6 mmol/L (0.4-2.0)
[2025-01-18 21:41] LABS: PH,VENOUS 7.51 (7.30-7.40)
[2025-01-18 21:42] LABS: BASE EXCESS VENOUS -3.9 (-4.0-2.0); BICARBONATE,VENOUS 17.6 meq/L (22-26); O2 SATURATION VENOUS 98.5
== END 2025-01-18 22:31 | disposition home or self-care (01) ==
LOC: JD.ED 20:28
DX: R11.2 Nausea with vomiting, unspecified (principal); E10.40 Type 1 diabetes mellitus with diabetic neuropathy, unspecified; I13.2 Hypertensive heart and chronic kidney disease with heart failure and with stage 5 chronic kidney disease, or end stage renal disease; I50.9 Heart failure, unspecified; N18.6 End stage renal disease; J45.909 Unspecified asthma, uncomplicated; E10.22 Type 1 diabetes mellitus with diabetic chronic kidney disease; Z86.16 Personal history of COVID-19; Z90.49 Acquired absence of other specified parts of digestive tract; Z88.5 Allergy status to narcotic agent; Z88.8 Allergy status to other drugs, medicaments and biological substances; Z91.040 Latex allergy status; Z91.048 Other nonmedicinal substance allergy status; Z79.4 Long term (current) use of insulin; Z79.51 Long term (current) use of inhaled steroids; Z79.899 Other long term (current) drug therapy; Z99.2 Dependence on renal dialysis
CPT/HCPCS: 36415; 74176; 80053; 82803; 82947; 83605; 83690; 83735; 83930; 85025; 86140; 87428; 96361; 96374; 96375; 96376; 99284; J2405; J3010; J7030

== ENCOUNTER 2025-01-21 11:59 | Emergency (ER) | payer MEDICAID ==
[2025-01-21] MEDS ORDERED: Naloxone 0.4 MG/ML SDV IVPUSH PRN ×2 (12:30→19:51)
[2025-01-21 12:41] LABS: BASOPHILS PERCENT AUTO 0.2 % (0.0-1.0); EOSINOPHILS PERCENT AUTO 0.3 % (0.0-6.0); HEMATOCRIT 28.6 % (37.0-47.0); IMMATURE GRAN ABSOLUTE AUTO 0.12 K/mm3 (0.00-0.05); IMMATURE GRAN PERCENT AUTO 1.2 % (0.0-0.4); LYMPHOCYTES ABSOLUTE AUTO 0.3 K/mm3 (1.0-4.8); LYMPHOCYTES PERCENT AUTO 2.8 % (24.0-44.0); MEAN CORPUSCULAR HGB CONC 31.5 g/dl (32.0-36.0); MEAN CORPUSCULAR VOLUME 89.1 fl (83.0-99.0); MEAN PLATELET VOLUME 11.6 fl (9.4-12.3); MONOCYTES ABSOLUTE AUTO 0.1 K/mm3 (0.0-0.8); MONOCYTES PERCENT AUTO 1.3 % (0.0-8.0); NEUTROPHILS ABSOLUTE AUTO 9.4 K/mm3 (1.8-7.7); NEUTROPHILS PERCENT AUTO 94.2 % (41.0-71.0); PLATELET COUNT,PLT 71 K/mm3 (150-400); RED BLOOD CELL COUNT 3.21 M/mm3 (4.10-5.30)
[2025-01-21] MEDS: Ondansetron 4 MG/2 ML SDV IVPUSH ONE (12:55)
[2025-01-21] MEDS: HYDROmorphone 0.5 MG/0.5 ML Syringe IVPUSH ONE ×3 (12:55→19:59)
[2025-01-21 12:59] LABS: APPEARANCE,URINE CLOUDY (Clear); BILIRUBIN,URINE 1+ (Negative); COLOR,URINE DARK YELLOW (Yellow); GLUCOSE,URINE TRACE (Negative); KETONES,URINE TRACE (Negative); LEUKOCYTE ESTERASE,URINE 1+ (Negative); NITRITE,URINE NEGATIVE (Negative); OCCULT BLOOD,URINE 3+ (Negative); PH,URINE 5.5 (5.0-8.0); PROTEIN,URINE 3+ (Negative); UROBILINOGEN,URINE 0.2 (0.2-1.0)
[2025-01-21 13:01] LABS: INR 1.24
[2025-01-21 13:02] LABS: PTT,PARTIAL THROMBOPLSTIN TIME 30.3 SECONDS (21.7-31.4)
[2025-01-21 13:04] LABS: BACTERIA,URINE MANY /hpf (FEW); MUCUS,URINE FEW /hpf (FEW); RBC,URINE >100 /hpf (0-5); WBC,URINE 20-30 /hpf (0-5)
[2025-01-21 13:08] LABS: LACTIC ACID 1.3 mmol/L (0.4-2.0)
[2025-01-21 13:14] LABS: A/G RATIO 0.4 (1-2); ALBUMIN 1.5 g/dl (3.4-5.0); ANION GAP 16.6 (5-15); BILIRUBIN TOTAL 0.7 mg/dL (0.2-1.0); BUN/CREATININE RATIO 11.7 (14-18); C-REACTIVE PROTEIN 22.58 mg/dL (<0.30); CALCIUM 7.3 mg/dL (8.5-10.1); EST CRCL DRUG DOSING (CG) 10.77 mL/min; POTASSIUM,K 4.6 mEq/L (3.5-5.1); PROTEIN TOTAL,TP 5.2 g/dl (6.4-8.2)
[2025-01-21 13:23] LABS: CREATININE 6.5 mg/dL (0.55-1.02)
[2025-01-21 13:28] LABS: SLIDE REVIEW ABNORMAL SMEAR
[2025-01-21] MEDS: cefTRIAXone 1 GM Vial IVPUSH ONE (14:01)
[2025-01-21] MEDS: Sodium Chloride 0.9% 1,000 ML IV ONE (18:34)
[2025-01-21] MEDS: Acetaminophen 325 MG Tab PO ONE (19:53)
[2025-01-21] MEDS: Sodium Chloride 0.9% 500 ML IV ONE (22:27)
== END 2025-01-21 23:08 | disposition home or self-care (01) ==
LOC: JD.ED 11:59
DX: N30.01 Acute cystitis with hematuria (principal); I12.9 Hypertensive chronic kidney disease with stage 1 through stage 4 chronic kidney disease, or unspecified chronic kidney disease; N18.9 Chronic kidney disease, unspecified; J45.909 Unspecified asthma, uncomplicated; E10.22 Type 1 diabetes mellitus with diabetic chronic kidney disease; Z86.16 Personal history of COVID-19; Z90.49 Acquired absence of other specified parts of digestive tract; Z88.5 Allergy status to narcotic agent; Z88.8 Allergy status to other drugs, medicaments and biological substances; Z91.040 Latex allergy status; Z91.048 Other nonmedicinal substance allergy status; Z79.4 Long term (current) use of insulin; Z79.51 Long term (current) use of inhaled steroids; Z79.899 Other long term (current) drug therapy
CPT/HCPCS: 36415; 73110; 74176; 80053; 81001; 83605; 83690; 85025; 85610; 85730; 86140; 87040; 87077; 87154; 87186; 93005; 96361; 96374; 96375; 96376; 99284; J0696; J2405; J7030; 93010; 99285

== ENCOUNTER 2025-01-31 16:41 | Emergency (ER) | payer MEDICAID ==
[2025-01-31 18:18] LABS: BASOPHILS PERCENT AUTO 0.2 % (0.0-1.0); EOSINOPHILS PERCENT AUTO 0.1 % (0.0-6.0); HEMATOCRIT 32.2 % (37.0-47.0); IMMATURE GRAN PERCENT AUTO 0.6 % (0.0-0.4); LYMPHOCYTES ABSOLUTE AUTO 0.9 K/mm3 (1.0-4.8); LYMPHOCYTES PERCENT AUTO 5.3 % (24.0-44.0); MEAN CORPUSCULAR HEMOGLOBIN 27.7 pg (28.0-32.0); MEAN CORPUSCULAR HGB CONC 31.1 g/dl (32.0-36.0); MEAN CORPUSCULAR VOLUME 89.2 fl (83.0-99.0); MEAN PLATELET VOLUME 9.6 fl (9.4-12.3); MONOCYTES ABSOLUTE AUTO 0.5 K/mm3 (0.0-0.8); MONOCYTES PERCENT AUTO 3.1 % (0.0-8.0); NEUTROPHILS ABSOLUTE AUTO 15.1 K/mm3 (1.8-7.7); NEUTROPHILS PERCENT AUTO 90.7 % (41.0-71.0); PLATELET COUNT,PLT 203 K/mm3 (150-400); RED BLOOD CELL COUNT 3.61 M/mm3 (4.10-5.30); WHITE BLOOD CELL COUNT,WBC 16.62 K/mm3 (3.9-11.3)
[2025-01-31] MEDS: Ondansetron 4 MG/2 ML SDV IVPUSH ONE (18:30)
[2025-01-31] MEDS: Famotidine 20 MG/2 ML SDV IVPUSH ONE (18:34)
[2025-01-31] MEDS: Alum Hydrox/Mag Hydrox/Simeth 30 ML, Lidocaine 2% 15 ML PO ONE (18:40)
[2025-01-31 18:46] LABS: ALKALINE PHOSPHATASE 139 U/L (46-116); BLOOD UREA NITROGEN,BUN 21 mg/dL (7-18); CHLORIDE,CL 96 mEq/L (98-107); GLUCOSE RANDOM 207 mg/dL (70-99); PROTEIN TOTAL,TP 6.9 g/dl (6.4-8.2); SODIUM,NA 136 mEq/L (136-145)
[2025-01-31 19:09] LABS: A/G RATIO 0.3 (1-2); ALANINE AMINOTRANSFERASE,ALT < 6 U/L (14-59); ALBUMIN 1.6 g/dl (3.4-5.0); ANION GAP 11.1 (5-15); ASPARTATE AMNIOTRANSFERASE,AST 11 U/L (15-37); BILIRUBIN TOTAL 0.5 mg/dL (0.2-1.0); BUN/CREATININE RATIO 5.5 (14-18); CREATININE 3.8 mg/dL (0.55-1.02); EST CRCL DRUG DOSING (CG) 18.42 mL/min; ESTIMATED GFR 15 mL/min (>60)
[2025-01-31 19:12] LABS: CARBON DIOXIDE,CO2 32 mEq/L (21-32); POTASSIUM,K 3.1 mEq/L (3.5-5.1)
[2025-01-31] MEDS ORDERED: Naloxone 0.4 MG/ML SDV IVPUSH PRN (20:21)
[2025-01-31] MEDS: HYDROmorphone 0.5 MG/0.5 ML Syringe IVPUSH ONE (20:57)
[2025-01-31 20:59] LABS: APPEARANCE,URINE CLEAR (Clear); BILIRUBIN,URINE 1+ (Negative); COLOR,URINE YELLOW (Yellow); GLUCOSE,URINE TRACE (Negative); KETONES,URINE 1+ (Negative); LEUKOCYTE ESTERASE,URINE NEGATIVE (Negative); NITRITE,URINE NEGATIVE (Negative); OCCULT BLOOD,URINE 2+ (Negative); PROTEIN,URINE 3+ (Negative); UROBILINOGEN,URINE 0.2 (0.2-1.0)
[2025-01-31 21:17] LABS: BACTERIA,URINE MODERATE /hpf (FEW); MUCUS,URINE FEW /hpf (FEW); RBC,URINE 30-40 /hpf (0-5); SQUAMOUS EPITHELIAL CELLS,UR 0-5 /hpf (0-5)
== END 2025-01-31 21:45 | disposition home or self-care (01) ==
LOC: JD.ED 16:41
DX: R11.2 Nausea with vomiting, unspecified (principal); I11.0 Hypertensive heart disease with heart failure; I50.9 Heart failure, unspecified; J44.9 Chronic obstructive pulmonary disease, unspecified; K21.9 Gastro-esophageal reflux disease without esophagitis; E10.9 Type 1 diabetes mellitus without complications; F17.210 Nicotine dependence, cigarettes, uncomplicated; Z88.5 Allergy status to narcotic agent; Z91.040 Latex allergy status; Z88.8 Allergy status to other drugs, medicaments and biological substances; Z79.4 Long term (current) use of insulin; Z79.899 Other long term (current) drug therapy; Z86.16 Personal history of COVID-19; Z90.49 Acquired absence of other specified parts of digestive tract
CPT/HCPCS: 36415; 80053; 81001; 85025; 96374; 96375; 99284; A9270; J2405

== ENCOUNTER 2025-02-20 20:15 | Emergency (ER) | payer MEDICAID ==
[2025-02-20] MEDS ORDERED: Sodium Chloride 0.9% 10 ML Syringe FLUSH PRN (20:59)
[2025-02-20] MEDS ORDERED: Naloxone 0.4 MG/ML SDV IVPUSH PRN (21:03)
[2025-02-20] MEDS: Ondansetron 4 MG/2 ML SDV IVPUSH ONE ×2 (21:41→21:43)
[2025-02-20] MEDS: Meropenem 1 GM SDV IVPUSH ONE (21:42)
[2025-02-20] MEDS: HYDROmorphone 1 MG/ML Syringe IVPUSH ONE (21:42)
[2025-02-20 21:44] LABS: HEMATOCRIT 29.3 % (37.0-47.0); HEMOGLOBIN 9.3 gm/dl (12.0-16.0); MEAN CORPUSCULAR HEMOGLOBIN 28.7 pg (28.0-32.0); MEAN CORPUSCULAR HGB CONC 31.7 g/dl (32.0-36.0); MEAN CORPUSCULAR VOLUME 90.4 fl (83.0-99.0); MEAN PLATELET VOLUME 10.1 fl (9.4-12.3); PLATELET COUNT,PLT 91 K/mm3 (150-400); RED BLOOD CELL COUNT 3.24 M/mm3 (4.10-5.30); WHITE BLOOD CELL COUNT,WBC 10.38 K/mm3 (3.9-11.3)
[2025-02-20 21:59] LABS: INR 1.17; PROTHROMBIN TIME 12.3 SECONDS (9.7-12.0)
[2025-02-20 22:01] LABS: LACTIC ACID 1.9 mmol/L (0.4-2.0); LIPASE 20 U/L (16-77); POTASSIUM,K 2.6 mEq/L (3.5-5.1)
[2025-02-20] MEDS: Sodium Chloride 0.9% 10 ML Syringe FLUSH PRN (22:10)
[2025-02-20] MEDS: Iopamidol 612 MG/ML 100 ML Bottle IVPUSH ONE (22:10)
[2025-02-20 22:18] LABS: BASE EXCESS ARTERIAL -0.1 (-2-2.0); BICARBONATE,ARTERIAL 23.3 meq/L (22.0-26.0); O2 SATURATION ARTERIAL 94.5 % (96.0-97.0)
[2025-02-20 22:19] LABS: A/G RATIO 0.3 (1-2); ALBUMIN 1.4 g/dl (3.4-5.0); ALKALINE PHOSPHATASE 98 U/L (46-116); ANION GAP 14.6 (5-15); ASPARTATE AMNIOTRANSFERASE,AST 11 U/L (15-37); BILIRUBIN TOTAL 0.5 mg/dL (0.2-1.0); BLOOD UREA NITROGEN,BUN 27 mg/dL (7-18); BUN/CREATININE RATIO 6.8 (14-18); C-REACTIVE PROTEIN 7.67 mg/dL (<0.30); CARBON DIOXIDE,CO2 21 mEq/L (21-32); CHLORIDE,CL 101 mEq/L (98-107); EST CRCL DRUG DOSING (CG) 15.68 mL/min; ESTIMATED GFR 14 mL/min (>60); GLUCOSE RANDOM 150 mg/dL (70-99); PROTEIN TOTAL,TP 5.6 g/dl (6.4-8.2); SODIUM,NA 134 mEq/L (136-145); TROPONIN I HIGH SENSITIVITY 11 pg/mL (<=51)
[2025-02-20 22:36] LABS: ANISOCYTOSIS 1+ SLIGHT; BAND PERCENT MAN 0 % (0-10); BASOPHILS PERCENT MAN 0 (0.1-1.2); CALCIUM 6.3 mg/dL (8.5-10.1); EOSINOPHILS PERCENT MAN 0 % (0.7-5.8); HYPOCHROMASIA 1+ SLIGHT; LYMPHOCYTES % ATYPICAL MANUAL 0 %; LYMPHOCYTES PERCENT MAN 9 % (20-40); MONOCYTES PERCENT MAN 7 % (2-10); PLATELET COUNT ESTIMATE DECREASED
[2025-02-20 22:38] LABS: ALANINE AMINOTRANSFERASE,ALT < 6 U/L (14-59)
[2025-02-20] MEDS: Hydrocortisone Sodium Succinate 100 MG/2 ML SDV IVPUSH ONE (22:38)
[2025-02-20] MEDS: LORazepam 2 MG/ML SDV IVPUSH ONE (22:39)
[2025-02-20] MEDS: VANCOmycin 1 GM in Sodium Chloride 0.9% 250 ML IV ONE (22:39)
[2025-02-20 23:38] LABS: MAGNESIUM 1.2 mg/dL (1.8-2.4)
[2025-02-20 23:40] LABS: POTASSIUM,K 2.5 mEq/L (3.5-5.1)
[2025-02-21 00:06] LABS: APPEARANCE,URINE SLT CLOUDY (Clear); BILIRUBIN,URINE 1+ (Negative); COLOR,URINE AMBER (Yellow); GLUCOSE,URINE 1+ (Negative); KETONES,URINE NEGATIVE (Negative); LEUKOCYTE ESTERASE,URINE NEGATIVE (Negative); NITRITE,URINE NEGATIVE (Negative); OCCULT BLOOD,URINE 3+ (Negative); PROTEIN,URINE 3+ (Negative); UROBILINOGEN,URINE 0.2 (0.2-1.0)
[2025-02-21] MEDS: Magnesium Sulf/Wat 4 GM/50 mL 4 GM in Premix Bag 1 BAG IV ONE (00:15)
[2025-02-21 00:17] LABS: BACTERIA,URINE FEW /hpf (FEW); FINE GRANULAR CASTS,URINE 0-5 /lpf (0-5); HYALINE CASTS,URINE 0-5 /lpf (0-5); MUCUS,URINE NOT SEEN /hpf (FEW); RBC,URINE TOO NUMEROUS TO CNT /hpf (0-5); RENAL EPITHELIAL CELLS,URINE 0-5 /hpf (0-5); SQUAMOUS EPITHELIAL CELLS,UR 0-5 /hpf (0-5)
[2025-02-21] MEDS: Potassium Chloride 20 MEQ Tab.ER PO ONE (01:36)
[2025-02-21] MEDS: HYDROmorphone 0.5 MG/0.5 ML Syringe IVPUSH ONE (01:51)
== END 2025-02-21 02:15 ==
LOC: JD.ED 20:15
DX: I13.2 Hypertensive heart and chronic kidney disease with heart failure and with stage 5 chronic kidney disease, or end stage renal disease (principal); I50.9 Heart failure, unspecified; N18.6 End stage renal disease; E87.6 Hypokalemia; I38 Endocarditis, valve unspecified; E83.42 Hypomagnesemia; M46.26 Osteomyelitis of vertebra, lumbar region; M46.46 Discitis, unspecified, lumbar region; E11.22 Type 2 diabetes mellitus with diabetic chronic kidney disease; Z91.040 Latex allergy status; Z88.5 Allergy status to narcotic agent; Z88.8 Allergy status to other drugs, medicaments and biological substances; Z91.048 Other nonmedicinal substance allergy status; Z79.4 Long term (current) use of insulin; Z79.899 Other long term (current) drug therapy; Z79.51 Long term (current) use of inhaled steroids; Z86.16 Personal history of COVID-19; Z99.2 Dependence on renal dialysis
CPT/HCPCS: 36415; 36600; 71260; 74177; 80053; 81001; 82803; 83605; 83690; 83735; 84132; 84145; 84484; 85007; 85027; 85610; 86140; 87040; 87077; 87154; 87186; 93005; 96361; 96365; 96366; 96367; 96375; 96376; 99285; A9270; J1171; J1720; J2060; J2185; J2405; J3475; J7030; Q9967; 93010